=== PATIENT | male | born 1950 | race Caucasian/White ===

== ENCOUNTER 2020-06-04 15:01 | Emergency (ER) | payer BC, OTHER ==
--- OUTSIDE RECORDS SUMMARY | 2020-06-04 15:04 | XMS REPORT | Continuity of Care Document ---
:1950 Author Organization [facility] Care Team Providers Name Role Phone [facility] Unavailable Un available Problems Problem Status Onset Classification Date Comments Sourc e Date Reported PANCYTOPENIA Active Memoria l [address] [place] Medications No Data Provided for This Section Allergies, Adverse Reactions, Alerts No Known Medication Allergies Immunizations No Data Provided for This Section Results No Data Provided for This Section Pathology Reports No Data Provided for This Section Diagnostic Reports Report Value Date Source Bone Marrow Bio/Aspr Patient Name: AGNES ARAMBULA 02/28[birth year]2019 Damon Myers VR : 1950; Age: 69 years Male MR: [id number] PROCEDURE: 1. CT-guided bone marrow biopsy and aspiration o f the left iliac bone 2. Moderate sedation CLINICAL INFORMATION: Pancytopenia CONSENT: The procedure, risk s, benefits and alternatives were discussed with the patient and written informed consent was obtained. A 'time out' was performed per protocol prior to the procedure. TECHNIQUE: CT imaging performed at this location utilizes radiation dose optimization techniques which include one or more of the following: -Automated exposure control -Adjustment of the mA and/or kV according to pat ient size -Use of iterative reconstruction technique die stamping press operator: Dr. Sauceda Preoperative diagnosis: Pancytopenia Postoperative diagnosis: Same Radiation dose: 276.53 mGycm Estimated blood loss: Minimal Moderate sedation: I superv ised moderate sedation during this procedure. The patient was continuously monitored by a nurse using automated blood pressure, electrocardiogram, and pulse oximetry. The mod erate sedation record is per manently stored in the hospital information system. The personal supervised moderate sedation time was 4 minutes. Medications administered: Versed 2 mg IV and Fentanyl 50 mcg IV. The patient was placed in a prone position on the CT table. The left upper gluteal region was prepped and draped with sterile technique and the skin was anesthetized with 1% lidocaine. Under CT guidance, an 11-gau ge bone biopsy needle was advanced into the left iliac bone. Approximately 10 mL of bone marrow aspirate was obtained. Subsequently, the biopsy needle was repositioned and a core sample obtained. Both t he core and marrow aspirate were given to the master technician. The needles were removed and sterile dressing applied. Patient tolerated the proced ure well and transferred to the recovery room in stable condition. IMPRESSION: Successful bone marrow biopsy. SL: [id number] Consultation Notes No Data Provided for This Section Discharge Summaries No Data Provided for This Section History and Physicals No Data Provided for This Section Vital Signs No Data Provided for This Section Encounters No Data Provided for This Section Procedures No Data Provided for This Section Assessment and Plan No Data Provided for This Section Plan of Care No Data Provided for This Section Social History No Data Provided for This Section Family History No Data Provided for This Section Advance Directives No Data Provided for This Section Functional Status No Data Provided for This Section
--- OUTSIDE RECORDS SUMMARY | 2020-06-04 15:05 | XMS REPORT | Continuity of Care Document ---
:1950 Author Organization [facility] t Address [address] [place] [address] Care Team Providers Name Role Phone SANTA Primary Care Physician Unavailable EMMANUEL Attending Clinician Unavailable Padilla Garcia MD Attending Clinician Emmanuel DE LA CRUZ Attending Clinician Liseth BARRAZA, M Attending Clinician Unavailable Santa DE LA CRUZ Attending Clinician SANTA Attending Clinician Unavailable JESSICA Attending Clinician Unavailable Desmond BARRAZA Attending Clinician Unavailable Jessica BARLOW Attending Clinician Jose TORO Attending Clinician OMAR ROSAS Attending Clinician Unavailable Omar Rosas MD Attending Clinician Rosalia RN, E Attending Clinician Unavailable Darrell RN Attending Clinician Unavailable Payers Payer Name Policy Type Policy Number Effective Date Expiration Date S yamileth [place] POS [id number] 2020 00:00:00 MEDICARE PART A [id number] 2017 AND B 00:00:00 AETNA O [id number] 2016 2020 00:00:00 00:00:00 Problems Condition Condition Condition Status Onset Resolution Last Treating Co mments Source Name Details Category Date Date Treatment Clinician Date 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 Family History Family Member Diagnosis Comments Start Date Stop Date Source Natural brother Heart disease And erson Natural sister COPD MD Viral andujar Natural son HIV MD Wick Social History Social Habit Start Date Stop Date Quantity Comments Source Sex Assigned At MD Bullock on Tobacco use and 2020-03-04 2020-03-04 Never used MD Bullock on exposure 00:00:00 00:00:00 Alcohol intake 2020-03-04 2020-03-04 Ex-drinker MD Viral andujar 00:00:00 00:00:00 (finding) Smoking Status Start Date Stop Date Source Never smoker MD Wick Medications Ordered Filled Start Stop Current Ordering Indication Dosage Frequency Signature Comments Components Source Medication Medication Date Date Medication? Clinician (SIG) Name Name meloxicam 2019- 2020- No 15mg Take 15 mg M D (MOBIC) 15 8 08-04 by mouth Alex rso mg tablet 20:50: 00:00 daily. n 01 :00 vit 2019-0 Yes 1{capsu Take 1 MD C/E/zinc 8- le} capsule by Norris lin ox/leyla/lut 19:57: mouth n /zeax 46 twice (ICAPS daily. AREDS2 ORAL) fenofibrate 2020-0 Yes 145mg Take 145 M D nanocrystal 8-04 mg by Anderso lized 19:57: mouth n (TRICOR) 45 daily. 145 mg tablet cyclobenzap 2020-0 Yes 10mg Take 10 mg MD elsi 8-04 by mouth Anderso (FLEXERIL) 19:57: daily. n 10 mg 45 tablet acetaminoph 2020-0 Yes 500mg Take 500 M D en 8-04 mg by Anderso (TYLENOL) 19:55: mouth as n 500 mg 49 needed for tablet mild pain. meloxicam 2020-0 2020- Yes Painless 15mg Take 1 M D (Mobic) 15 04-13 11-03 hematuria tablet (15 Anderso mg tablet 00:00: 05:59 mg) by n 00 :00 mouth daily for 90 days. cyclobenzap 2019-0 2020- Yes Painless 10mg Take 1 MD rine 04-13 11- hematuria tablet (10 And erso (FLEXERIL) 00:00: 05:59 mg) by n 10 mg 00 :00 mouth tablet twice daily for 90 days. ergocalcife 2019-0 2020- No Painless [id number] Take 1 MD rol 04-13 08-17 hematuria capsule Kobe o (DRISDOL) 00:00: 04:59 (50,000 n 50,000 00 :00 Units) by units mouth capsule every 7 days for 12 days. carvedilol 2020-0 Yes 1{tbl} Take 1 MD (COREG) 6-10 tablet by Anderso 12.5 mg 00:00: mouth n tablet 00 twice daily. losartan 2020-0 Yes 1{tbl} Take 1 MD (COZAAR) 6-10 tablet by Kobe o 100 mg 00:00: mouth n tablet 00 daily. tamsulosin 2020-0 Yes 1{capsu Take 1 MD (FLOMAX) 6-03 le} capsule by Norris so 0.4 mg 24 00:00: mouth n hr capsule 00 daily. levothyroxi 2020-0 Yes 1{tbl} Take 1 MD ne 6-03 tablet by Anderso (SYNTHROID, 00:00: mouth n LEVOTHROID) 00 daily. 75 mcg tablet esomeprazol 2020-0 Yes 1{capsu Take 1 M D e (NexIUM) 6-03 le} capsule by And erso 40 MG 00:00: mouth n capsule 00 daily. VICTOZA 2020-0 2020- No Inject as MD 3-HENRIK 0.6 5-26 07-14 directed Norris so mg/0.1 mL 00:00: 00:00 daily. n (18 mg/3 00 :00 mL) pnij injection TRESIBA 2020-0 Yes 42U Inject 42 MD FLEXTOUCH 4-21 Units Anderso U-200 200 00:00: under the n unit/mL (3 00 skin mL) insulin daily. pen metFORMIN 2020- Yes 500mg Take 500 MD (GLUCOPHAGE 4-07 mg by Anderso ) 1000 mg 00:00: mouth n tablet 00 twice daily. Vital Signs Vital Name Observation Time Observation Value Comments Source HEIGHT 2020-04-13 14:04:11 172.9 cm WEIGHT 2020-04-13 14:04:11 119.6 kg HEIGHT 2020-04-13 14:04:11 172.9 cm WEIGHT 2020-04-13 14:04:11 119.6 kg HEIGHT 2020-03-23 13:03:45 172.9 cm WEIGHT 2020-03-23 13:03:45 117.2 kg HEIGHT 2020-03-23 13:03:45 172.9 cm WEIGHT 2020-03-23 13:03:45 117.2 kg Systolic blood pressure 2020-04-13 19:04:11 183 mm[Hg] MD Wick Diastolic blood pressure 2020-04-13 19:04:11 88 mm[Hg] MD Wick Heart rate 2020-04-13 19:04:11 84 /min MD Norris cornell Body temperature 2020-04-13 19:04:11 36.89 Nichol MD Ashwini nguyễn Respiratory rate 2020-04-13 19:04:11 16 /min MD Ashwini nguyễn Body height 2020-04-13 19:04:11 172.9 cm MD Norris cornell Body weight 2020-04-13 19:04:11 119.6 kg MD Pisano son BMI 2020-04-13 19:04:11 40.01 kg/m2 MD Norris cornell Oxygen saturation in 2020-04-13 19:04:11 93 /min MD Wick Arterial blood by Pulse oximetry Procedures Procedure Date / Time Performed Performing Clinician Sourc e XR FOOT 3+ VW BILATERAL 2020-03-23 20:49:18 Clifford Benitez MDon XR HAND 3 VIEWS MINIMUM 2020-03-23 20:32:51 Clifford Benitez MD BILATERAL ANTI-B2 GLYCOPROTEIN 2020-03-23 20:01:00 Clifford Benitez MD rson ANTINUCLEAR ANTIBODY HEP-2 2020-03-23 20:01:00 Clifford Benitez SUBSTRATE IGG C4 COMPLEMENT 2020-03-23 20:01:00 Clifford Benitez MD ANTI-CARDIOLIPIN ANTIBODIES 2020-03-23 20:01:00 Clifford Benitez MD C REACTIVE PROTEIN 2020-03-23 20:01:00 Clifford Benitez MD on CYCLIC CITRULLINE ANTIBODY 2020-03-23 20:01:00 Clifford Benitez IGG DNA ANTIBODY 2020-03-23 20:01:00 Clifford Benitez MD (DOUBLE-STRANDED) IGG SEDIMENTATION RATE 2020-03-23 20:01:00 Clifford Benitez MD on NON-AUTOMATED COMMUNICATIONS INTERN ANTIBODY IGG SERUM 2020-03-23 20:01:00 Clifford Benitez MD RHEUMATOID FACTOR 2020-03-23 20:01:00 Clifford Benitez MD QUANTITATIVE HEPATITIS B SURFACE ANTIBODY, 2020-03-23 20:01:00 Clifford Benitez MD SERUM HBV DNA QUANT 2020-03-23 20:01:00 Clifford Benitez MD HEPATITIS C GENOTYPE, SERUM 2020-03-23 20:01:00 Clifford Benitez MD URINALYSIS WITH MICROSCOPIC 2020-03-23 20:01:00 Clifford Benitez MD IF INDICATED PROTEIN / CREATININE RATIO 2020-03-23 20:01:00 Clifford Benitez URINE T-SPOT TUBERCULOSIS 2020-03-23 20:01:00 lCifford Benitez MD son CREATINE KINASE 2020-03-23 20:01:00 Clifford Benitez MD URIC ACID 2020-03-23 20:01:00 Clifford Benitez MD PTH INTACT 2020-03-23 20:01:00 Clifford Benitez MD HEMOGLOBIN A1C 2020-03-23 20:01:00 Clifford Benitez MD ANCA INFLAMMATORY BOWEL 2020-03-23 20:01:00 Clifford Benitez MD nderson DISEASE CRYOGLOBULIN 2020-03-23 20:01:00 Clifford Benitez MD VITAMIN D 25 HYDROXY LEVEL 2020-03-23 20:01:00 Clifford Benitez URINALYSIS MICROSCOPIC 2020-03-23 20:01:00 Clifford Benitez MD LUPUS PATH REVIEW 2020-03-23 20:01:00 Clifford Benitez MD HP MOLECULAR BLOOD COLLECTION 2020-03-04 21:06:00 Shara Lopez MD HEMATOPATHOLOGY BONE MARROW 2020-03-04 20:42:00 Marguerite Pratt MD INTERPRETATION [place] DIAGNOSTIC BONE MARROW 2020-03-04 20:00:00 Shara Lopez MD BIOPSIES & ASPIRATIONS HP FC FLOW CYTOMETRY BLOOD 2020-03-04 19:47:00 Shara Lopez COLLECTION HP MOLECULAR BLOOD COLLECTION 2020-03-04 19:47:00 Shara Lopez MD HP CYTOGENETICS BLOOD 2020-03-04 19:47:00 Shara Lopez MD And erson COLLECTION FLT3 ANALYSIS REPORT 2020-03-04 19:47:00 Shara Lopez HP TCR BETA GENE 2020-03-04 19:47:00 Shara Lopez MD son REARRANGEMENT ANALYSIS REPORT TCR GAMMA GENE 2020-03-04 19:47:00 Shara Lopez MD Alex rson REARRANGEMENT ANALYSIS REPORT MEG DE LA CRUZ IGH MUTATION ANALYSIS 2020-03-04 19:47:00 Shara Lopez MD INTERPRETATION AND REPORT MEG DE LA CRUZ LEUKEMIA MUTATION PANEL 2020-03-04 19:47:00 Shara Lopez MD V1 HP CG CHROMOSOME ANALYSIS 2020-03-04 19:47:00 Shara Lopez MD FINAL REPORT HP FC MDS FINAL REPORT 2020-03-04 19:47:00 Shara Lopez MDson BONE MARROW HISTORIC 2020-03-04 17:00:00 Jennifer, Cristi Wick RAPID PLASMA REAGIN (RPR) 2020-03-04 16:03:00 Shara Lopez MD COMPLETE BLOOD COUNT W/ 2020-03-04 16:03:00 Shara Lopez MD nderson DIFFERENTIAL PROTHROMBIN TIME 2020-03-04 16:03:00 Shara Lopez MD PARTIAL THROMBOPLASTIN TIME 2020-03-04 16:03:00 Shara Lopez MD RESEARCH PROTOCOL [id number] 2020-03-04 16:03:00 Shara Lopez MD Results CBC 2020-03-04 16:03:00 Shara Lopez MD MANUAL DIFFERENTIAL 2020-03-04 16:03:00 Shara Lopez MD TMP RPR PATH INTERP 2020-03-04 16:03:00 Shara Lopez MD PERIPHERAL SMEAR FOR BONE 2020-03-04 15:55:00 TomShara coppola MD MARROW HP FC FLOW CYTOMETRY BLOOD 2020-03-04 15:55:00 TomShara coppola COLLECTION TOTAL PROTEIN 2020-03-04 15:55:00 TomShara coppola MD ALBUMIN LEVEL 2020-03-04 15:55:00 TomShara coppola MD CALCIUM LEVEL TOTAL 2020-03-04 15:55:00 TomShara coppola MD son PHOSPHORUS LEVEL 2020-03-04 15:55:00 TomShara coppola MD GLUCOSE, RANDOM 2020-03-04 15:55:00 TomsShara MD BLOOD UREA NITROGEN 2020-03-04 15:55:00 TomsShara MD son SERUM CREATININE 2020-03-04 15:55:00 TomsShara MD URIC ACID 2020-03-04 15:55:00 TomShara coppola MD FRACTIONATED BILIRUBIN 2020-03-04 15:55:00 TomsShara MDson ALKALINE PHOSPHATASE 2020-03-04 15:55:00 TomsShara MD LACTATE DEHYDROGENASE 2020-03-04 15:55:00 TomsShara ALANINE AMINOTRANSFERASE 2020-03-04 15:55:00 TomShara coppola MD ELECTROLYTE PANEL 2020-03-04 15:55:00 TomShara coppola MD MAGNESIUM LEVEL 2020-03-04 15:55:00 TomShara coppola MD ASPARTATE AMINOTRANSFERASE 2020-03-04 15:55:00 TomShara coppola THYROID STIMULATING HORMONE 2020-03-04 15:55:00 TomShara coppola MD FIBRINOGEN ACTIVITY 2020-03-04 15:55:00 TomShara coppola MD VITAMIN B12 LEVEL 2020-03-04 15:55:00 TomShara coppola MD RETICULOCYTE COUNT AUTOMATED 2020-03-04 15:55:00 TomShara coppola MD FOLATE LEVEL 2020-03-04 15:55:00 TomShara coppola MD FERRITIN LVL 2020-03-04 15:55:00 TomShara coppola MD D DIMER 2020-03-04 15:55:00 TomShara coppola MD ERYTHROPOIETIN LEVEL 2020-03-04 15:55:00 TomsShara MD NT PRO BNP 2020-03-04 15:55:00 Shara Lopez MD HEPATITIS B CORE ANTIBODY 2020-03-04 15:55:00 Shara Lopez MD HEPATITIS C VIRUS ANTIBODY 2020-03-04 15:55:00 Shara Lopez HC HIV 1/2 AG AND AB 4TH GEN 2020-03-04 15:55:00 Shara Lopez MD SERUM CREATININE 2020-03-04 15:55:00 Shara Lopez MD .GLOMERULAR FILTRATION RATE 2020-03-04 15:55:00 Shara Lopez MD ABORH 2020-03-04 15:55:00 Shara Lopez MD ANTIBODY SCREEN 2020-03-04 15:55:00 Shara Lopez MD TMP INTERPRETATION ANTIBODY 2020-03-04 15:55:00 Shara Lopez MD SCREEN NEGATIVE CLOT EXPIRATION DATE 2020-03-04 15:55:00 Shara Lopez MD rson TMP HIV 1/2 AG&AB PATH INTERP 2020-03-04 15:55:00 Shara Lopez MD TMP HTLV INTERP 2020-03-04 15:55:00 Shara Lopez MD TMP HBSAG INTERP 2020-03-04 15:55:00 Shara Lopez MD TMP HBCAB INTERP 2020-03-04 15:55:00 Shara Lopez MD TMP HCVAB INTERP 2020-03-04 15:55:00 Shara Lopez MD HP FC PNH FINAL REPORT 2020-03-04 15:55:00 Shara Lopez MD CONFIRM ABORH TYPE 2020-03-04 15:54:00 Shara Lopez MD on HEMATOPATHOLOGY BONE MARROW 2020-03-04 09:27:43 Conversion, Jennifer Wick DIFFERENTIAL HC COVID19 AUTOMATED PCR 2020-03-02 13:37:00 Marguerite Pratt MD BONE MARROW REFERRAL 2020-02-23 00:00:00 System, Provider Not MD Wick In HEMATOPATHOLOGY BONE MARROW 2020-02-17 14:59:24 Conversion, Jennifer Wick DIFFERENTIAL Encounters Start End Encounter Admission Attending Care Care Encounter Source Date/Time Date/Time Type Type Clinicians Facility Department ID 2020-07-15 2020-07-15 Outpatient EL BUNI, MDA MDA [id number] 00:00:00 00:00:00 CLIFFORD andujar 2020-04-13 2020-04-13 Outpatient EL BUNI, MDA MDA [id number] MD 13:46:09 15:54:48 CLIFFORD andujar 2020-03-23 2020-03-23 Outpatient EL BUNI, MDA MDA [id number] 14:02:08 23:59:00 CLIFFORD andujar 2020-03-23 2020-03-23 Outpatient EL BUNI, MDA MDA [id number] MD 15:08:58 15:08:58 CLIFFORD andujar 2020-03-23 2020-03-23 Outpatient EL BUNI, MDA MDA [id number] MD 15:08:39 15:08:39 CLIFFORD andujar 2020-03-23 2020-03-23 Outpatient EL BUNI, MDA MDA [id number] 12:49:50 14:14:26 CLIFFORD andujar 2020-03-19 2020-03-19 Outpatient EL SANTA, MDA MDA [id number] 10:12:15 10:12:15 PRITHVIRAJ And erso n 2020-03-18 2020-03-18 Outpatient EL TOMS, SHARA MDA MDA [id number] 00:00:00 00:00:00 Kobe andujar 2020-03-04 2020-03-04 Outpatient EL TOMS, SHARA MDA MDA [id number] 14:47:57 23:59:00 Kobe o pratima 2020-03-04 2020-03-04 Outpatient EL TOMS, SHARA MDA MDA [id number] 14:45:00 14:46:00 Kobe o pratima 2020-03-04 2020-03-04 Outpatient EL TOMS, SHARA MDA MDA [id number] 10:51:00 14:44:00 Kobe o pratima 2020-03-04 2020-03-04 Outpatient EL SANTA, MDA MDA [id number] MD 09:14:00 14:42:35 PRITHVIRAJ And erso n 2020-03-04 2020-03-04 Outpatient EL RALPH, MDA MDA [id number] 10:20:16 10:50:00 Marshall andujar 2020-03-04 2020-03-04 Outpatient DIANA PRATT MDA MDA [id number] 09:40:14 09:40:14 PRITHVIRAJ And erso n 2020-03-04 2020-03-04 Outpatient DIANA PRATT MDA MDA [id number] 09:13:12 09:13:12 PRITHVIRAJ And erso n 2020-03-02 2020-03-02 Outpatient DIANA PRATT MDA MDA [id number] 08:30:09 08:37:57 PRITHVIRAJ And erso n 2019-02-28 2019-02-28 Outpatient MHBL MED [id number] MHBL 08:51:00 08:51:00 Results Test Description Test Time Test Comments Results Result Comments Source Hepatitis B Surface Antibody 2020-03-30 02:55:15 Test Item Value Reference Range Interpretation Comme nts Hep Bs Ab-[facility] Positive Patient is co nsidered to be immune to infection (test code = with HBV. ----- REFERENCE 33555-4) VALUE Unvaccinated: NegativeVaccina chilango: Positive Hep Bs Ab 101 mIU/mL -----REFERENCE Qn-[facility] (test VALUE--------- Unvaccinated: code = 5193-8) <5.0Vaccinate d: >=12.0 Test Performed by:[facility] [place] [address]Evh Director: Chinedu edwards M.D. Ph.D.; CLIA# [id number] AndersonHBV DNA [id number] 21:37:12 Test Item Value Reference Range Interpretation Comments HBV DNA [facility] Undetected Undetected IU/mL Result in log IU/mL is (test code = Undetected. 59871-8) ----ADDITIO NAL INFORMATION---- ----The quantif ication range of this a ssay is 10 to1,000,000,000 IU/mL (1.00 log to 9. 00 log IU/mL). Testing was performed using the shabana HBV test ([employer] with the shabana 6800 System. Test Pe rformed by:[address] [address]Lab Director: Garcia Guidry M.D. Ph. D.; CLIA# [id number] MD Pickardpatitis C [id number] 14:35:16 Test Item Value Reference Range Interpretation Comments Hep C Jovanna-[facility] Undetected Undetected Assay failed to detect (test code = HCV RNA[place] [address]505-0) intended for HC V RNA detection purpo ses. ----ADDITI ONAL INFORMATION---- -----This test was performed using the Can[employer] RealTime HCVGenotype II assay ([employer] [place], [place] ). Test Performed by:[address] [address]Lab Director: Garcia Guidry M.D. Ph. D.; CLIA# [id number] MD WickT-spot [id number] 19:18:13 Test Item Value Reference Range Interpretation Comments Tspot TB NIL Cont 1 (test code = 9396) Tspot TB Panel A 1 (test code = 9397) Tspot TB Panel B 1 (test code = 9398) Tspot TB Pos Cont SAT NOTE: TMTC INDICATES TOO (test code = 9399) MANY SPOT S TO COUNT. SAT INDICATES THE W ELL WAS SATURATED. Tspot TB (test code Negative Negative Performi Lab:Hindu = 7663) [address] [address] Tspot TB Interp See Note Results Inte rpretation: (test code = 9400) Results a re Negative when (Panel A - NIL) and (Panel B - NIL) 4 spo ts, including value s less than zero.Results ar e Positive when (Panel A - NIL) and (Panel B - NIL) 8 spots.Results a re Borderline when either (Panel A - NIL) and (Panel B - NIL) = 5, 6 , or 7. The test is invalid when either of the f ollowing conditions is m et:1.) The NIL Control has > 10 spots.2.) The M itogen (Positive Contr ol) has <20 spots and both (Panel A - NIL) and (Panel B - NIL) 4 spots. M. tub erculosis infection canno t be excluded when:1 . Any illness is cons istent with TB disease.2. L ikelihood of progression to disease (e.g. Due to Immunosuppressi on) is increased. Limi tations Diagnosing or e xcluding Tuberculosis di sease, and assessing the p robability of LTBI, requir es a combination of Epidemiological , historical, med ical and diagnostic find ings that should be taken in to account when in terpreting T-Spot.TB refer to the most recent CDC guidance(http:/ www.cdc.gov /nchstp/tb) for detailed recommendations about diagnosing TB i nfections (including dise ase) and selecting perso ns for testing. 1.) A false negative result can be caused by incor rect blood sample collecti on or improper handli ng of the specimen, affec ting lymphocyte func tion.2.) The performance of T-Spot.TB has n ot been adequately eval uated with specimens from individuals younger than ag e 17 years, in wom en, and in patients with Hemophilia.3.) A false positive result was obtained for T- Spot.TB when tested in subjects with M. xenopi, M. kansasii, and M . gordonae. While ESAT-8 an d CFP-10 antigens are ab sent from BCG strains of M. bovis and from most environmental Mycobacteria, i t is possible that a positive T-Spot.TB resul t may be due to infectio n with M. kansasii, M. sz ulgai, M. gordoae, or M. marinum. Alternative michelle ts would be required if the se infections are suspected.4.) A negative test result boone s not exclude the pos sibility of exposure to, or infection with M. tubercu losis. Patients with r ecent exposure to TB infected individuals exh ibiting a negative T-Spot .TB result should be consi dered for retesting withi n 6 weeks or if other rel evant clinical sysmpt oms indicate possib le infection.5.) A positive test result boone s not rule in active TB di sease; other tests leslie uld be performed to co nfirm the diagnosis of ac tive TB disease such as sputum smear and cultu re, PCR and chest radiograp hy.6.) T-Spot.TB test has not been evaluated in subjects who have receiv ed > 1 month Anti-TB t herapy.7.) Refrigerated an d frozen samples are not recommended for use with T-Spot.TB test. MD WickAnti B2 [id number] 01:35:17 Test Item Value Reference Range Interpretation Comments B2 GPI IgM (test <9.4 <15.0 (Negative) Test P erformed by:[facility] code = 07333-2) unit/mL [facility] Biomode - Biomolecular Determinationr [address] [employer] [place], [place] [address]Uia Direct or: Chinedu edwards M.D. Ph.D.; CLIA# 24 [id number] B2 GPI IgG (test <9.4 <15.0 (Negative) code = 35642-3) unit/mL MD WickAntinuclear Antibody (SUKHWINDER) HEp-2 Substrate, [id number] 20:38:46 Test Item Value Reference Range Interpretation Comments SUKHWINDER HEp-2 See Footnote <1:80 (Negative) RESULT: <1: 80 (Negative) Substrate (test -------[facility] code = 42620-0) ONAL INFORMATION---- -----Method: Immunofluoresce nce using HEp-2 cellular substrate. Test Performed by:[facility] Skyerar [address] [employer] [place], [place] [address]Hrl Direct or: Chinedu edwards M.D. Ph.D.; CLIA# 24 [id number] MD WickDNA Ab [id number] 17:44:38 Test Item Value Reference Range Interpretation Comments DS-DNA IgG-[facility] <12.3 <30.0 (Negative) IU/mL T est Performed by:[facility] (test code = [facility] - 53672-9) [facility] ior [address] [place], [place] [address]Zlp Direct or: Chinedu edwards M.D. Ph.D.; CLIA# 24 [id number] MD WickCyclic Citrullinated Peptide [id number] 16:28:09 Test Item Value Reference Range Interpretation Comments CCP Ab-[facility] (test <15.6 <20.0 (Negative) Units Test Performed by:[facility] code = 5183) [facility] ior [address] [place], [place] [address]Olv Direct or: Chinedu edwards M.D. Ph.D.; CLIA# 24 [id number] MD WickCytoplasmic Neutrophil [id number] 16:26:07 Test Item Value Reference Range Interpretation Comments RFC Negative Negative ANCA-[facility] (test code = 23859-2) RFP Negative Negative Negative for cA NCA and pANCA ANCA-[facility] patterns by imm unofluorescence. (test code = ----ADDITIONAL 18941-4) INFORMATION---- Thi s test was sean stout and its performance characteristics determined by [facility] in a man ner consistent with CLIArequir ements. This test has not been cl eared or approved bythe U.S. Food and Drug Administration. Test Performed by:[facility] ior [address] [place], [place] [address]Edt Direct or: Chinedu Guidry M.D. Ph. D.; CLIA# [id number] MD WickSm Ab IgG [id number] 14:25:22 Test Item Value Reference Range Interpretation Comments Sm Auto IgG <0.2 <1.0 (Negative) Units Test Performed by:[facility] (test [facility] - code = 62244-3) [facility] perior [address] [place], [place] [address]Eyd Direct or: Chinedu edwards M.D. Ph.D.; CLIA# 24 [id number] MD [id number] 14:25:21 Test Item Value Reference Range Interpretation Comments SS-A/Ro IgG-[facility] <0.2 <1.0 (Negative) Units (test code = 29099-9) SS-B/La IgG-[facility] 0.2 <1.0 (Negative) Units T est Performed by:[facility] (test code = [facility] - 77861-2) [place] [facility] i[address] [place], [place] [address]Jqn Direct or: Chinedu edwards M.D. Ph.D.; CLIA# 24 [id number] MD WickRNP Ab [id number] 14:25:20 Test Item Value Reference Range Interpretation Comments U1RNP Auto IgG <0.2 <1.0 (Negative) Units Michelle t Performed by:[facility] Ab-[facility] (test [facility] - code = 97537-1) [place] Matt perior [address] [place], [place] [address]Owo Direct or: Chinedu edwards M.D. Ph.D.; CLIA# 24 [id number] MD WickScl 70 Ab [id number] 14:25:19 Test Item Value Reference Range Interpretation Comments Scl-70 IgG-[facility] <0.2 <1.0 (Negative) Units Te st Performed by:[facility] (test code = [facility] - 91017-1) [facility] ior [address] [place], [place] [address]Mvj Direct or: Chinedu edwards M.D. Ph.D.; CLIA# 24 [id number] MD WickCardiolipin [id number] 03:45:18 Test Item Value Reference Range Interpretation Comments Cardio IgG (test <9.4 <15.0 (Negative) GPL Te st Performed by:[facility] code = 3181-5) [facility] ior [address] [place], [place] [address]Jch Direct or: Chinedu edwards M.D. Ph.D.; CLIA# 24 [id number] Cardio IgM (test <9.4 <15.0 (Negative) MPL code = 3182-3) MD [id number] 00:45:26 Test Item Value Reference Range Interpretation Comments C4-[facility] (test code = 13 mg/dL 14-40 L Test P erformed 4498-2) by:[facility] Super i[address] [place], [place] [address]Tlv Dir michael: Chinedu edwards M.D. Ph.D.; CLI A# [id number] Lab Interpretation (test Abnormal code = 29958-2) MD [id number] 00:45:19 Test Item Value Reference Range Interpretation Comments C3-[facility] (test code 120 mg/dL 75-175 Test Per formed by:[facility] = 4485-9) [facility] ior [address] [employer] [place], [place] [address]Ggr Director: Garcia Guidry M.D. Ph. D.; CLIA# [id number] MD [id number] 16:39:14 Test Item Value Reference Range Interpretation Comments Cryoglobulin-[facility] Negative Negative This test is negative at 24 (test code = hours. All [facility] les are held 27092-1) andreviewed aga in at 7 days. If delaye d precipitation o ccursafter 7 days, Immunofix ation will be performed an d anadditional re port will follow. Cryofibrinogen-May Negative Negative Test Per formed by:[place] [facility] (test code = [facility] - 45357-0) [place] [address] [employer] [place], [place] [address]Yzh Director: Garcia Guidry M.D. Ph.D.; CLI A# [id number] MD WickLupus Anticoagulant Path [id number] 18:36:31Lupus Anticoagulant Path InterpThe test for lupus anticoagulant is negative,suggestive of absence oflupus anticoagulant. However,due to the heterogeneous nature of the lupus anticoagulant,the presenceof lupus anticoagulant can not be completelyruled out. If clinical suspicion for lupus anticoagulantis strong, repeat screening test for anticoagulant atdifferent time, anticardiolipin antibody testing andadditional lupus panel studies are recommended. Comment: MD Boo DAVEY [id number] by: MD Boo DAVEY [id number] Date/Time: 03.24.2020 13:36 PM CDT Transcribed Date/Time: 03.24.2020 13:36 PM CDTElectronically Signed By: MD Boo DAVEY [id number] on 03.24.2020 13:36 PM BANNER ZuckpqnjOaeph3189-05-91 18:36:30 Test Item Value Reference Range Interpretation Comments N LAC Ratio (test code = 6449) 0.93 <=1.20 ratio MD WickVitamin D [id number] 16:02:19 Test Item Value Reference Range Interpretation Comments Vitamin D 25 OH (test 20 ng/mL 30-100 L Refere nce Range: code = 8018) Deficiency: <10 ng/mLInsufficie ncy: 10-29 ng/mLSufficienc y: 30-100 ng/mLPotential toxicity: >10 0 ng/mL Lab Interpretation (test Abnormal code = 51674-9) MD WickSed [id number] 21:42:59 Test Item Value Reference Range Interpretation Comments Sed Rate (test code = 4537-7) 17 0- 9 mm/hr H Lab Interpretation (test code = Abnormal 83039-8) MD [id number] 21:28:46 Test Item Value Reference Range Interpretation Comments CRP (test code = 5.53 mg/L Reference r [facility] for HS CRP 5235) assay are as fo llows: Reference range s when used to assess cardi ac risk: <1.00 mg/L Low cardiovascular risk 1.00-3.00 mg/L Average cardiovascular risk >3.00 mg/L High cardi ovascular risk.Reference ranges when used to assess inflammatory responses: Les s than or equal to 10.00 mg/L. MD WickProtein/Creatinine Ratio [id number] 21:26:27 Test Item Value Reference Range Interpretation Comments UTP Ran (test code = 7 mg/dL Normal range not 7922) available for collections les s than 24 hours in [facility]. U Creatinine (test 74.4 mg/dL 40-278 The refer ence range code = 7725) listed is for f irst morning urine collection. U Prot/Creat (test 0.09 Normal ra nge not code = 7805) available for collections les s than 24 hoursin dura tion. MD WickX-ray Foot 3+ Views [id number] 21:19:401. No acute fracture.2. No radiographic evidence of rheumatoid arthritis in feet.3. Unremarkable ankles.Interface, Radiology Results In 03/23/2020 4:21 PM CDTFULL RESULT:Examination: XR BilateralFeet, Minimum 3 Views, 03/23/2020 3:49 PM.Clinical History: Leukemia.Indication: Rheumatoid arthritis.Comparison: None.Technique: 3 views of each foot, 03/23/2020.Findings:Mild diffuse soft tissue swelling and mild generalized osteoporosis are noted bilaterally.No other bone, joint or soft tissue abnormality is seen in the feet. No bony erosions are present.The bilateral ankles are unremarkable.IMPRESSION:1. No acute fracture.2. No radiographic evidence of rheumatoid arthritis in feet.3. Unremarkable ankles.MD WickHemoglobin [id number] 21:19:16 Test Item Value Reference Range Interpretation Comments A1C (test code = 4632) 6.3 % 4.3-5.6 H HbA1c values >=6.5% are diagnostic of diabetes mellitus.Diagno sis should be confi rmed by repeat testing.Therape utic Action suggeste d: >8.0% HbA1c; Go al oftherapy: <7.0 % HbA1c Lab Interpretation (test Abnormal code = 18057-6) MD WickRheumatoid Factor [id number] 21:18:06 Test Item Value Reference Range Interpretation Comments Rheumatoid Factor (test code = 9378) 10 <=14 IU/mL MD WickCreatine [id number] 21:17:56 Test Item Value Reference Range Interpretation Comments CK (test code = 5206) 81 U/L 20-200 MD WickX-ray Hand 3 Views Minimum [id number] 21:16:151. No acute fracture.2. 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 No radiographic evidence of rheumatoid arthritis in hands and wrists.Interface, Radiology Results In 03/23/2020 4:18 PM CDTFULL RESULT:Examination: XR Bilateral Hands, Minimum 3 Views, 03/23/2020 3:32 PM.Clinical History: Leukemia.Indication: Rheumatoid arthritis.Comparison: None.Technique: 3 views of each hand, 03/23/2020.Findings:Early osteoarthritis is seen in the DIP joints with some joint space narrowing, eburnation and tiny marginal osteophytes.Soft tissue swelling is seen about the wrists and bilateral MCP joints. No bony erosions are present.Chondrocalcinosis is noted in both wrists. Mild osteoarthritis is seen at the right third MCP joint. Osteoarthritis is also present in the articulations between the scaphoid trapezium and trapezoid bones in the right wrist.No other bone, joint or soft tissue abnormality is seen.IMPRESSION:1. No acute fracture.2. 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 No radiographic evidence of rheumatoid arthritis in hands and wrists.MD WickUrinalysis with Microscopic 2020-03-23 20:50:27 Test Item Value Reference Range Interpretation Comments UA WBC (test code = 1 0- 2 /HPF 7904) UA RBC (test code = 12 0- 2 /HPF H 7891) UA Mucous (test code = NOT SEEN TRACE /HPF 7887) UA Bacteria (test code NOT SEEN NOT SEEN /HPF = 7870) UA Squam Epi (test NOT SEEN OCC /HPF code = 7896) SRAVANTHI (test code = SRAVANTHI) Some reporting parameters within the Urinalysis test have changed due to the implementation of new instrumentation in the [facility], allowing greater sensitivity of measurement. Urinalysis results reported by the [facility] using existing instrumentation, as well as Urinalysis testing performed manually or by backup methodology at the [facility] will remain relatively unchanged. New reporting parameters and units will now be reported for all campuses. Lab Interpretation Abnormal (test code = 58395-5) MD WickUrinalysis w/Microscopic if [id number] 20:45:03 Test Item Value Reference Range Interpretation Comments UA Color (test code = 7877) Yellow Yellow UA Appear (test code = 7868) Clear Clear UA Glucose (test code = 7881) NEG NEG mg/dL UA Bili (test code = 7871) NEG NEG UA Ketones (test code = 7884) NEG NEG mg/dL UA Spec Grav (test code = 7894) 1.013 1.002-1.035 UA Blood (test code = 7872) Small NEG A UA pH (test code = 7909) 7.0 4.5-8.0 UA Protein (test code = 7890) NEG NEG mg/dL UA Urobilinogen (test code = 7903) POS NEG A UA Nitrite (test code = 7888) NEG NEG UA Leuk Est (test code = 7886) NEG NEG Lab Interpretation (test code = Abnormal 97055-0) MD WickPTH [id number] 20:44:05 Test Item Value Reference Range Interpretation Comments PTH Intact (test 16.9 pg/mL 15-65 Testing Per formed at code = 6769) ACB Lab Ambulat ory Care [facility], [address], [address], [place], [place] [address] MD WickUric [id number] 20:43:25 Test Item Value Reference Range Interpretation Comments Uric Acid (test 5.1 mg/dL 3.4-7 Testing Perf ormed at B code = 7955) Lab Head Of [employer] [facility], [facility], [address], [place] [address] MD Geronimo HCV Ab Path [id number] 11:56:19 Test Item Value Reference Range Interpretation Comments HCV Ab Path Patient shows Interp (test evidence of code = 8923) Hepatitis C ____PINO STEVENSON MD - virus antibody. 16222Urcrshp d by: PINO This may be due SABAS BARRAZA MD - to prior 38435Uawvnory D ate/Time: exposure to the 03.06.2020 6 :56 AM CDT Hepatitis C Transcribed Rehan e/Time: virus. 03.06.2020 6:56 AM CDTElectronical ly Signed By: PINO STEVENSON MD - [id number] on 03.06 6:56 AM Risa Geronimo HBcAb Path [id number] 11:56:18HBcAb Path InterpHepatitis B core antibody test is reactive. A false positive test cannot be ruled ou t.Hepatitis B virus DNA Quantitative by PCR should be run to confirm the presence/absence of HBV.Hepatitis B surface antibody testing is also recommended if not already performed.These results may not be valid if the patient has recently received IVIG. Comment: MD Boo ALMARAZ [id number] by: MD Boo ALMARAZ [id number] Date/Time: 03.06.2020 6:56 AM CDT Transcribed Date/Time: 03.06.2020 6:56 AM CDTElectronically Signed By: MD Boo ALMARAZ [id number] on 03.06.2020 6:56 AM [facility] C Virus Ab 2020-03-06 04:32:41 Test Item Value Reference Range Interpretation Comments HCVAb. (test code = 5762) Reactive Non Reactive A Pe rformed at:[facility] [place] [address] Lab Interpretation (test Abnormal code = 41556-2) MD Pickardkosair children's hospitalsima B Total Ig Core Ab (SCREENING) (anti-HBc total Ig; HBcAb total Ig)2020-03-06 04:32:40 Test Item Value Reference Range Interpretation Comments HBcAb. (test code = 5742) Reactive Non Reactive A Pe rformed at:[facility] [place] [address] Lab Interpretation (test Abnormal code = 80990-5) MS DelanoFlow Cytometry Specimen Collection -Bone [id number] 17:51:33 Test Item Value Reference Range Interpretation Comments Flow Cytometry Yes (Received) (test code = 8319) SRAVANTHI (test code = SRAVANTHI) [id number] [facility] 15mlsPremedication type:->NoneAspiration laterality:->Unilatera lBiopsy laterality:->Unilatera lProcedure type:->ClotProcedure type:->BiopsyProcedure type:->AspirateSelect the Bone Marrow Stains:->IronSelect the Bone Marrow Stains:->Reticulin/Tri chrome MD [facility] Specimen Collection -[id number] 15:20:28 Test Item Value Reference Range Interpretation Comments Molecular Diagnostics (Received) (test Yes code = 8400) MD Geronimo RPR Path Diziegvondyjju5821-56-79 11:51:19 Test Item Value Reference Interpretation Comments Range TMP RPR Path The Rapid Interpretation Plasma Reagin (test code = (RPR) assay is PION OBREGON 840471) negative. If a MD MADI - syphilis 56838Rdcjbfbj b y: infection is PINO BARRAZA MD - suspected, 01858Ujcgzsik please perform Date/Time: a Treponemal 6:51 AM CDT specific Transcribed Rehan e/Time: screening 03.05.2020 6:51 AM assay. CDTElectronical ly Signed By: NILTON BARRAZA MD - [id number] on 03.05.2020 6:51 AM Risa Geronimo HIV 1/2 Ag&Ab Path [id number] 11:47:34 Test Item Value Reference Range Interpretation Comments HIV 1/2 Ag&Ab Negative for Interp (test HIV-1 antigen and code = 9394) HIV-1/HIV-2 ____PINO STEVENSON MD - antibodies. [place] 02376Zbryswfr by: PINO BARRAZA MD - evidence of HIV 40556Lpqtonq d Date/Time: infection. If 03.05.2020 6:4 7 AM CDT acute HIV Transcribed Rehan e/Time: infection is 03.05.2020 6:47 AM suspected, CDTElectronical ly Signed consider testing By: PINO BARRAZA MD - for HIV-1 RNA. 21092 on 6:47 AM Risa Geronimo HBsAg Path [id number] 11:47:33 Test Item Value Reference Range Interpretation Comments HBsAg Path There is NO Interp (test serologic code = 8922) evidence of ____PINO STEVENSON MD - detectable 97625Jpivorjv b y: PINO Hepatitis B virus Gerber VANG D - surface antigen. 18778Tfwzvv ed Date/Time: 03.05.2020 6:47 AM CDT Transcribed Rehan e/Time: 03.05.2020 6:47 AM CDTElectronical ly Signed By: MD Boo ROSS [id number] on 03.05 6:47 AM C MD SwansonP HTLV Path [id number] 11:47:32 Test Item Value Reference Range Interpretation Comments TMP HTLV I/II Patient plasma Interp (test shows no code = 7549) evidence of ____PINO STEVENSON MD - HTLV-I/II 57187Qypovdbk b y: PION antibodies. SABAS BARRAZA MD - Please retest in [address] [place] [address] ed Date/Time: 6 months if an 03.05.2020 6: 47 AM CDT exposure is Transcribed Rehan e/Time: suspected. 03.05.2020 6:47 AM CDTElectronical ly Signed By: MD Boo ROSS [id number] on 03.05 6:47 AM Risa Hearn Plasma Reagin (RPR) [Syphilis SCREENING]2020-03-05 05:02:57 Test Item Value Reference Range Interpretation Comments RPR Screening (test code = Non Reactive Non Reactive 003568) MD Pickardpatisima B Surface [id number] 03:43:20 Test Item Value Reference Range Interpretation Comments HBsAg. (test code Non Reactive Non Reactive Performed at: = 5747) [facility] [address] [place] [address] MD WickHTLV I/II [id number] 03:43:18 Test Item Value Reference Range Interpretation Comments HTLV I/II Ab. Non Reactive Non Reactive Performed at:M D (test code = 5842) [facility] [address] [address] MD WikcHIV-1/2 Antigen and Antibodies, Fourth Ribvibuyvj6324-67-31 00:23:59 Test Item Value Reference Range Interpretation Comments HIV 1/2 Ag & Ab, Non Reactive Non Reactive Performed a t: 4th Gen (test code [facility] = 9280) [address] [address] MD WickFolate [id number] 22:55:11 Test Item Value Reference Range Interpretation Comments Folate Lvl (test 19.6 ng/mL 4.8-24.2 Hemolyzed s pecimens with code = 5625) Hemolysis Index >30.0 (30 mg/dL or vi sible hemolysis) may cause interference an d give falsely high re sults. MD WickCytogenetics Specimen Collection -Bone [id number] 22:39:01 Test Item Value Reference Range Interpretation Comments Cytogenetics (Received) Yes (test code = 8304) SRAVANTHI (test code = SRAVANTHI) [id number] [place] 15mlsPremedication type:->NoneAspiratio n laterality:->Unilate ralBiopsy laterality:->Unilate ralProcedure type:->ClotProcedure type:->BiopsyProcedu re type:->AspirateSelec t the Bone Marrow Stains:->IronSelect the Bone Marrow Stains:->Reticulin/T richrome MD WickVitamin B12 [id number] 22:28:51 Test Item Value Reference Range Interpretation Comments Vitamin B12 Lvl (test code = 8017) 771 pg/mL 211-946 MD WickVbpzvpbvLbbgbjmc1426-78-10 20:54:59 Test Item Value Reference Range Interpretation Comments Ferritin Lvl (test code = 5608) 139 ng/mL 30-400 MD WickResearch Protocol [id number] 20:44:33 Test Item Value Reference Range Interpretation Comments Research Prot (test 600699 code = 7189) SRAVANTHI (test code = SRAVANTHI) [id number] [place] 15mls MD WickTMP Interpretation Antibody Screen [id number] 20:34:57 Test Item Value Reference Range Interpretation Comments TMP Auto Neg At the present ABSC Interp time, patient (test code = plasma shows no ____PINO BARRAZA MD - 7535) evidence of RBC 43597Mjmbpxr d by: PINO ricoantimichelle. MD Boo VANG 74360Ckspxkyq D ate/Time: 03.04.2020 15:3 4 PM CDT Transcribed Da te/Time: 03.04.2020 15:3 4 PM CDTElectronical ly Signed By: MD Boo ROSS 14640 on 03.04 15:34 PM MD Maldonado marrow aspiration w/ [id number] 20:00:00Maya Garcia NP 03/04/2020 4:04 PM Procedure: Bone marrow aspiration/biopsyDate/Time: 03/04/2020 2:59 PM Provider Information:Performed by: Maya Garcia NPAuthorized by: Shara Lopez APN Strap Folding Machine Operator present: yesAssistant: Dione Schmitt interpreter for the deaf used?: interpreter for the deaf not needed Patient Diagnosis:Pre-procedure diagnosis: MDSPost-procedure diagnosis: unchanged Indication:Indication: evaluation of disease status Anesthesia:Anesthesia: local infiltrationPatient anesthetized by: advanced practice providerLocal anesthetic: lidocaine 1% without epinephrineAnesthetic total (ml): 20 Sedation:Patient sedated?: patient not sedated Aspirate Site(s):Laterality: rightSite location: posterior iliac cre stInstrument(s) used: Jamshidi needleInstruments placed by: advanced practice provider Biopsy Site(s):Laterality: rightSite location: posterior iliac crestInstrument(s) used: Jamshidi needleInstrumentsplaced by: advanced practice provider Dressing:Dressing: compression bandage Post-Procedure Patient A ssessment:Patient tolerance: wellEstimated blood loss: minimalComplications/Observations: no complications Discharge/Disposition:Discharge instructions: verbal and patient verbalized understandingPatient discharged to: discharge to homeDisposition mode: ambulatory Sample Disposition:Testing performed:flow cytometry, molecular and cytogeneticsStains performed: iron, reticulum and trichomeResearch samples(s): yesProtocol #: [id number] volume obtained (mL) - right: 23Visual assessment for specimen adequacy - right: particlesVisual assessment for specimen adequacy - right: 1.4Specimen integrity- right: fragmented Comments:Pocedure performed by Physician Strap Folding Machine Operator Fellow Matthew Salinas PA-C, under the supervision of Maya Garcia NP.MD WickConfirm ABORh 2020-03-04 19:20:00 Test Item Value Reference Range Interpretation Comments ABORh Confirm. (test code = 882-1) A POS MD WickKyhjbavyZYRGd3829-04-67 19:17:32 Test Item Value Reference Range Interpretation Comments ABORh. (test code = 882-1) A POS MD WickClot Expiration [id number] 19:17:30 Test Item Value Reference Range Interpretation Comments T & S Expiration (test code = 03/07/2020 5318) MD WickAntibody [id number] 19:16:46 Test Item Value Reference Range Interpretation Comments ABSC. (test code = 890-4) Negative ABSC MD WickNypovrykYVY9860-18-01 18:32:54 Test Item Value Reference Range Interpretation Comments Erythropo Lvl (test code = 5523) 19.7 2.6- 18.5 mIU/mL H Lab Interpretation (test code = Abnormal 79999-9) MD [id number] 17:40:04 Test Item Value Reference Range Interpretation Comments TSH (test code = 7578) 0.90 0.27- 4.20 mcunit/mL MD WickFractionated Ozpopuhhs6075-08-47 17:40:01 Test Item Value Reference Range Interpretation Comments Bili Total (test 1.0 mg/dL <=1.2 Indocyanine Green (ICG) code = 5096) may cause false ly elevated biliru bin results. Total and direct bilirubin must not be measured from s amples containing indo cyanine green. False el evation of total bilirubin can be seen in patient s with IgG concentrations above 28 g/L. Bili Direct (test 0.2 mg/dL <=0.3 Indocyanin e Green (ICG) code = 5094) may cause false ly elevated biliru bin results. Total and direct bilirubin must not be measured from s amples containing indo cyanine green. Bili Indirect (test 0.8 mg/dL 0-0.9 code = 5095) MD WickGlucose, [id number] 17:40:00 Test Item Value Reference Range Interpretation Comments Glucose Random (test 89 mg/dL 70-199 Effecti ve 04/05/16, the code = 9360) glucose referen ce intervals have been updated based o n [place] [employer] bib delines (Standards of M edical Care in Diabete s 2016. Diabetes Care 2 016; 39: S13-S22).Fastin g blood glucose:Normal: 70 99 mg/dLImpaire d fasting glucose (increa sed risk for diabetes or pre-diabetes): 100 125 mg/dLDiabet es mellitus: >/=1 26 mg/dL Random blood glucose:Normal: 70 199 mg/dLNote: Random glucose >100 mg /dL is associated with increased risk for diabetes MD WickTotal [id number] 17:39:58 Test Item Value Reference Range Interpretation Comments Total Protein (test code = 7649) 7.9 g/dL 6.4-8.3 MD WickCalcium [id number] 17:39:57 Test Item Value Reference Range Interpretation Comments Calcium Lvl (test code = 5258) 10.5 mg/dL 8.4-10.2 H Lab Interpretation (test code = Abnormal 80023-4) MD WickAlanine Tgehdfttlrsadyft6048-29-83 17:39:56 Test Item Value Reference Range Interpretation Comments ALT (test code = 4705) 19 U/L <=41 MD WickQwtqvqihWDC3181-93-02 17:39:55 Test Item Value Reference Range Interpretation Comments BUN (test code = 5055) 19 mg/dL 6-23 MD WickGlomerular Filtration [id number] 17:39:53 Test Item Value Reference Range Interpretation Comments eGFR-AA (test 108 >=60 mL/min/1.73 sq. Normal eGFR: >= 60 code = 8062) m mL/min/1.73 m2N ote: The eGFR is calcula chilango using the CKD-EPI equ ation. The eGFR declines w ith age. eGFR <60 mL/min /1.73 m2 is considered as " decreased". This equation s juan juld only be used for pat ients 18 and older. Acco rding to the National dney Foundation's dney Disease Outcome Quality Initiative (KDO QI) classification and 2012 Kidney Disease Improving Global Outcomes (KDIGO) Clinical Practi ce Guideline, the stage of CKD should be c ategorized based on estima chilango GFR. Stage Descripti on GFR mL/min/1.73 m21 Normal or high GFR >=902 Mildly de creased GFR 60-893a Mildly to moder ately decreased GFR 45-593b Moderately to s everely decreased GFR 30-444 Severely decrea sed GFR 15-295 Kidney failure <15 eGFR-LIVIER (test 93 >=60 mL/min/1.73 sq. Jane l eGFR: >= 60 code = 8063) m mL/min/1.73 m2N ote: The eGFR is calcula chilango using the CKD-EPI equ ation. The eGFR declines w ith age. eGFR <60 mL/min /1.73 m2 is considered as " decreased". This equation s hould only be used for pat ients 18 and older. Acco rding to the [facility] dney Foundation's dney Disease Outcome Quality Initiative (KDO QI) classification and 2012 Kidney Disease Improving Global Outcomes (KDIGO) Clinical Practi ce Guideline, the stage of CKD should be c ategorized based on estima chilango GFR. Stage Descripti on GFR mL/min/1.73 m21 Normal or high GFR >=902 Mildly de creased GFR 60-893a Mildly to moder ately decreased GFR 45-593b Moderately to s everely decreased GFR 30-444 Severely decrea sed GFR 15-295 Kidney failure <15 MD WickPhosphorus [id number] 17:39:52 Test Item Value Reference Range Interpretation Comments Phosphorus (test code = 6817) 3.4 mg/dL 2.5-4.5 MD WickMagnesium [id number] 17:39:51 Test Item Value Reference Range Interpretation Comments Magnesium (test code = 6359) 1.6 mg/dL 1.6-2.6 MD WickElectrolyte [id number] 17:39:50 Test Item Value Reference Range Interpretation Comments Sodium Lvl (test code = 7355) 139 136- 145 mEq/L Potassium Lvl (test code = 6854) 5.1 3.5- 5.1 mEq/L Chloride (test code = 5279) 103 98- 107 mEq/L CO2 (test code = 5227) 28 22- 29 mEq/L Anion Gap (test code = 9325) 8 4- 14 mEq/L MD WickTyigofsyCDS1560-76-09 17:39:49 Test Item Value Reference Range Interpretation Comments LDH (test code = 6111) 299 U/L 135-225 H Speci men is hemolyzed. Resu lts may be falsely elevated. Repea t test if needed.Resul ts greater than 16 51 U/L may not be reli able due to matrix e ffect with extended dilution as it exceeds the engrosser s recommended l imit. Caution should be exercised when interpreting matt ch values and done in conjunction wit h clinical contex t. Lab Interpretation (test Abnormal code = 88819-8) MD WickAlkaline Rtqrzpglsvm1762-08-53 17:39:48 Test Item Value Reference Range Interpretation Comments Alk Phos (test code = 4768) 67 U/L 40-129 MD WickAlbumin Knygi1514-04-45 17:39:47 Test Item Value Reference Range Interpretation Comments Albumin Lvl (test code = 4763) 4.2 3.5- 5.2 gm/dL MD WickAspartate [id number] 17:39:46 Test Item Value Reference Range Interpretation Comments AST (test code = 4731) 41 U/L <=40 H Speci men is hemolyzed. Resu lts may be falsely elevated. Repea t test if needed. Lab Interpretation (test Abnormal code = 66745-9) MD Wick.Serum Woscctbucz5030-27-90 17:39:44 Test Item Value Reference Range Interpretation Comments Creatinine (test code = 5399) 0.77 mg/dL 0.67-1.17 MD WickLnophfhhQlwhzkwlpa9837-59-96 17:25:45 Test Item Value Reference Range Interpretation Comments Fibrinogen (test code = 5610) 334 mg/dL 214-503 MD WickD [id number] 17:25:44 Test Item Value Reference Range Interpretation Comments D-Dimer (test 0.31 0.10- 0.50 mcg/ml The cut o ff value for code = 5419) FEU exclusion of ve nous thromboembolism is <0.50 mcg/mL FEUs (fi brinogen equivalent unit s). MD WickEcwuwkenFvgwqxxhunpd7835-22-47 17:25:01 Test Item Value Reference Range Interpretation Comments Neutrophil % (test code = 60.7 % 42-66 92533-8) Lymphocyte % (test code = 24.9 % 24-44 737-7) Monocyte % (test code = 10.5 % 2-7 H 744-3) Eosinophil % (test code = 2.5 % 1-4 713-8) Basophil % (test code = 0.7 % 0-1 707-0) IGRE % (test code = 0.7 % 0-0.4 H IGRE % c ount 07226-8) includes Metamyelocytes, Myelocytes, and Promyelocytes. Neutrophil Abs (test code 1.68 K/uL 1.7-7.3 L = 753-4) Lymphocyte Abs (test code 0.69 K/uL 1-4.8 L = 732-8) Monocyte Abs (test code = 0.29 K/uL 0.08-0.7 743-5) Eosinophil Abs (test code 0.07 K/uL 0.04-0.4 = 712-0) Basophil Abs (test code = 0.02 K/uL 0-0.1 705-4) IG Abs (test code = 0.02 K/uL 0-0.04 73506-1) Lab Interpretation (test Abnormal code = 10472-7) MD Wick.[id number] 17:24:59 Test Item Value Reference Range Interpretation Comments WBC (test code = 2.8 K/uL 4-11 L 6690-2) RBC (test code = 789-8) 5.10 4.50- 6.00 M/uL Hgb (test code = 718-7) 15.6 14.0- 18.0 gm/dL Hct (test code = 47.2 % 40-54 4544-3) MPV (test code = 787-2) 10.9 fL 4-10.4 H MCH (test code = 785-6) 30.6 pg 27-31 MCHC (test code = 33.1 31.0- 36.0 gm/dL 786-4) RDW-SD (test code = 50.3 fL 35.1-46.3 H 66674-9) RDW-CV (test code = 14.6 % 12-15.5 788-0) Platelet count (test 74 K/uL 140-440 L code = 777-3) INRBC (test code = 0.0 % <=0.0 The INRBC (instrument 5974) NRBC) value ref lects the enumeration of nucleated red b lood cells contained in a 200uL sampleof whole blood analyzed by the instrument. Thi s value maydiffer from the NRBC value reported in a m anual differential,wh ich is based on a 100 cell differential. Lab Interpretation Abnormal (test code = 05343-7) MD WickNT-Pro BNP (In-House)2020-03-04 17:14:13 Test Item Value Reference Range Interpretation Comments NT ProBNP (test code = 9385) 28 pg/mL <=125 MD WickProthrombin [id number] 17:00:47 Test Item Value Reference Range Interpretation Comments PT (test code = 6746) 15.7 12.0- 14.3 H No Minna t Present, second(s) Repeated and Verified INR (test code = 5973) 1.28 0.90-1.10 H No Cl ot Present, Repeated and Verified Lab Interpretation (test Abnormal code = 47885-9) MD WickRetic [id number] 17:00:19 Test Item Value Reference Range Interpretation Comments Retic Cnt Auto (test code = 81237-6) 1.2 % 0.5-1.5 RETHE (test code = 6973) 37.4 pg 23.2-37.5 IRF (test code = 67220-3) 2.7 % 2.3-18 MD WickPartial Thromboplastin [id number] 16:37:41 Test Item Value Reference Range Interpretation Comments PTT (test code = 6773) 30.2 24.2- 36.0 second(s) MD WickPeripheral Smear for Bone [id number] 16:33:39 Test Item Value Reference Range Interpretation Comments Peripheral Smear (test code = 4273) PSMEAR MD WickCOVID-19 (SARS-CoV-2) PCR-Asymptomatic [id number] 06:51:07 Test Item Value Reference Range Interpretation Comments COVID19 (SARS Not Detected Not Detected This test is a CoV-2) Result qualitative (test code = reverse-transcr iptase 19662) polymerase nupur n reaction (RT-PC R) developed for t he [employer] syst em and intended for th e detection of SA RS CoV-2 RNA in human nasopharyngeal specimens from patients who meet COVID- 19 clinical and/or epidemiological criteria. This assay has been approv ed by the FDA for use only under Emergency Use Authorization ( EUA) in laboratories th at have been CLIA-certi fied to perform moderate-comple xity and high-complexity tests. The performance characteristics of this assay were veri fied by the [facility] at [facility]. Results must be interpreted wit hin the context of all relevant clinical and la boratory findings and sh ould not form the sole b asis for a diagnosis or treatment decision.Novelty Maker al controls are in cluded to assess for p ossible amplification inhibitors. If inhibition is d etected, testing is repe ated and if inhibition i s confirmed the s pecimen is resulted as "Invalid". "Inconclusive" results are due to part ial amplification o f SARS-CoV-2 targ ets. When this occur s, results are con firmed by repeat testi ng before issuing an "Inconclusive" result. When an "Invali d" or "Inconclusive" results occur, it is recommended to wait a minimum of 3 da ys before submitti ng a new specimen for te sting if clinically keily cated. COVID19 SARS DEVELOPER [employer] Swab Source (test code = 71622) COVID19 SARS New Patient Indication (test code = 27832) MD Wick
[2020-06-04] MEDS ORDERED: ONDANSETRON 4 MG/2 ML VIAL ONE ×2 (16:37→22:08)
[2020-06-04] MEDS ORDERED: MORPHINE 4 MG/ML SYR ONE ×3 (16:37→22:08)
[2020-06-04 17:02] LABS: Urine Blood 2+ (NEG); Urine Glucose NEGATIVE (NEG); Urine Protein 1+ (NEG)
--- NOTE | 2020-06-04 17:14 | RAD REPORT ---
EXAM DESCRIPTION: US - Abdomen Exam Limited - 06/04/2020 4:43 pm CLINICAL HISTORY: EPIGASTRIC PAIN COMPARISON: Stone Protocol dated 10/17/2019 FINDINGS: Multiple variably sized gallstones are present. Small to moderate quantity of sludge prese nt. There is no wall thickening or pericholecystic fluid. No common duct stone or biliary tree dilatation identified. IMPRESSION: Multiple gallstones and sludge are present. No wall thickening or pericholecystic fluid. No duct stone or biliary dilatation.
[2020-06-04 17:56] LABS: Absolute Lymphocytes (CBC) 0.3 K/uL (0.7-4.9); Basophils % 0.2 % (0-1.3); Hematocrit 44.3 % (39.6-49.0); Lymphocytes % 4.5 % (15.3-44.8); MPV 8.6 fL (7.6-11.3); RBC Red Blood Cell Count 4.94 M/uL (4.33-5.43)
[2020-06-04 17:58] LABS: Protime INR 1.27
[2020-06-04 18:14] LABS: ALT/SGPT 31 U/L (12-78); AST/SGOT 31 U/L (15-37); Albumin 2.7 g/dL (3.4-5.0); Alkaline Phosphatase 128 U/L (45-117); BUN Blood Urea Nitrogen 12 mg/dL (7-18); Bicarbonate 27 mmol/L (21-32); Bilirubin Direct 12.8 mg/dL (0-0.2); Glucose Level 125 mg/dL (74-106); Lipase 45 U/L (73-393); NT PRO-BNP 255 pg/mL (<125); Potassium 3.7 mmol/L (3.5-5.1); Protein, Total 7.3 g/dL (6.4-8.2); Sodium Level 139 mmol/L (136-145); Troponin (Emerg Dept Use Only) < 0.02 ng/mL (0.0-0.045)
[2020-06-04 18:17] LABS: Bilirubin Total 15.9 mg/dL (0.2-1.0)
--- NOTE | 2020-06-04 19:07 | RAD REPORT ---
EXAM DESCRIPTION: CT - Abdomen Pelvis W Contrast - 06/04/2020 6:42 pm CLINICAL HISTORY: abdominal pain, jaundice COMPARISON: Stone Protocol dated 10/17/2019 TECHNIQUE: Biphasic, helical CT imaging of the abdomen and pelvis was performed following 100 ml non -ionic IV contrast. No oral contrast administered. All CT scans are performed using dose optimization technique as appropriate and may include automated exposure control or mA/KV adjustment according to patient size. FINDINGS: No acute lung base finding. No pericardial thickening or effusion. Small hiatal hernia is present. Circumferential wall thickening of the distal esophagus is present similar to comparison. Nu merous varices are seen at the gastroesophageal junction. No focal liver lesion on noncontrast imaging. Prominent nodular contour to the liver capsule. Left lo be is enlarged relative to the right. No portal vein thrombus identified. Splenomegaly to 19 cm is pr esent. Cholelithiasis is present with multiple stones seen. Gallbladder wall thickening is present wi th minimal stranding in the adjacent fat. Extrahepatic biliary tree is prominent. No intrahepatic dil atation seen. . Symmetric renal function is seen with no hydronephrosis or suspicious renal mass. No pyelonephritis o r acute parenchymal process. Nonobstructing 8 mm calculus present lower pole left kidney. No adrenal abnormalities. Partially filled urinary bladder shows no suspicious finding. Prostate gland within no rmal limits. The absence of intraluminal content limits gastric assessment. No gross change in the stomach from pr ior imaging. No dilated large or small bowel. Appendix normal. Moderate sigmoid diverticulosis presen t. Trace free fluid along the superior lateral liver margin. Numerous varices seen in the upper abdomen. No free air, free fluid or inflammatory stranding. No hernia, mass or bulky lymphadenopathy. No suspicious bony findings. IMPRESSION: Cirrhotic liver changes with splenomegaly and numerous varices in the upper abdomen. Multi stone cholelithiasis as previously seen. There is wall thickening or edema present with minimal stranding in the adjacent fat. Gallbladder findings could be secondary to the cirrhosis. Acute mile cystitis is a consideration as well.
[2020-06-04] MEDS ORDERED: MAGNESIUM SULFATE 1 gm IVPB 1 GM/100 ML BAG IV ONE (19:26)
[2020-06-04 19:59] LABS: Blood Morphology Comment NOT SEEN (NOT SEEN); Platelet Estimate DECR; White Blood Cell Scan OK (OK)
--- NOTE | 2020-06-04 20:14 | EDPHYS ---
Physician Documentation [facility] Name: Burton Mcduffie Age: 70 yrs Sex: Male : 1950 Arrival Date: 06/04/2020 Time: 15:03 Bed 6 Private MD: ED Physician Kaleb Espinoza HPI: 06/04 15:26 This 70 yrs old Male presents to ER via EMS with complaints of Abdominal jmm Pain, Jaundice. 15:26 The patient presents with abdominal pain. Onset: The symptoms/episode began/occurred jmm gradually, 1 week(s) ago. The symptoms do not radiate. Associated signs and symptoms: Pertinent positives: fever. The symptoms are described as achy. This is a 70 year old male with a history of htn, hlp, DM, hypothyroidism that presents to the ED with complaints of epigastric abdominal pain, bloating, dysuria beginning approx 1 week ago. Patient states he initially noticed dark red urination about a week ago. Patient is currently being monitored due to a diagnosis of leukemia. The patient was sent from clinic due to jaundice today . Historical: - Allergies: 15:15 Amitriptyline; ph - Home Meds: 15:15 Tricor 145 mg Oral tab 1 tab once daily [Active]; Levoxyl 75 mcg Oral tab 1 tab once ph daily [Active]; Flomax 0.4 mg Oral cp24 1 cap once daily [Active]; carvedilol 12.5 mg oral tab 1 tab every 12 hours [Active]; losartan 100 mg oral tab 1 tab once daily [Active]; metformin 1,000 mg Oral tab 1 tab 2 times per day [Active]; Tresiba FlexTouch U-200 200 unit/mL (3 mL) subcutaneous inpn [Active]; esomeprazole magnesium 40 mg oral cpDR 1 cap once daily [Active]; allopurinol 300 mg Oral tab 1 tab once daily [Active]; Cipro 500 mg Oral tab 1 tab every 12 hours [Active]; - PMHx: 15:15 Hypertension; Hyperlipidemia; Diabetes - IDDM; Hypothyroidism; Leukemia; GERD; ph Arthritis; BPH; Neuropathy; UTI; Kidney stones; - PSHx: 15:15 Knee surgery; ph - Immunization history:: Adult Immunizations unknown. - Social history:: Smoking status: Patient denies any tobacco usage or history of. Patient/guardian denies using alcohol. ROS: 15:26 Constitutional: Negative for fever, chills, and weight loss, Cardiovascular: Negative [facility] for chest pain, palpitations, and edema, Respiratory: Negative for shortness of breath, cough, wheezing, and pleuritic chest pain. 15:26 Abdomen/GI: Positive for abdominal pain. 15:26 : Positive for hematuria. 15:26 All other systems are negative. Exam: 15:26 Constitutional: This is a well developed, well nourished patient who is awake, alert, jmm and in no acute distress. Head/Face: atraumatic. Eyes: EOMI, no conjunctival erythema appreciated ENT: Moist Mucus Membranes Neck: Trachea midline, Supple Chest/axilla: Normal chest wall appearance and motion. Cardiovascular: Regular rate and rhythm. No edema appreciated Respiratory: Normal respirations, no respiratory distress appreciated 15:26 Back: Normal ROM Skin: General appearance color normal MS/ Extremity: Moves all extremities, no obvious deformities appreciated, no edema noted to the lower extremities Neuro: Awake and alert, normal gait Psych: Behavior is normal, Mood is normal, Patient is cooperative and pleasant 15:26 Abdomen/GI: Inspection: distension, Bowel sounds: normal, Palpation: soft, mild abdominal tenderness, in the right upper quadrant and left upper quadrant. 16:34 ECG was reviewed by the Attending Physician. [facility] Vital Signs: 15:04 BP 177 / 88; Pulse 95; Resp 14; Temp 99.0(O); Pulse Ox 99% on R/A; Weight 111.13 kg; ph Height 5 ft. 9 in. (175.26 cm); Pain 5/10; 16:10 BP 166 / 82; Pulse 93; Resp 16; Pulse Ox 100% on R/A; ph 17:05 BP 158 / 77; Pulse 102; Resp 18; Pulse Ox 94% on R/A; ph 18:17 BP 165 / 81; Pulse 106; Resp 23; Pulse Ox 92% on R/A; hb 19:20 BP 145 / 81; Pulse 109; Resp 20; Temp 99; Pulse Ox 99% ; Pain 3/10; rr5 20:41 BP 138 / 82; Pulse 108; Resp 20; Pulse Ox 96% ; rr5 21:30 BP 133 / 75; Pulse 115; Resp 17; Pulse Ox 98% on 2 lpm NC; rr5 22:00 BP 142 / 77; Pulse 110; Resp 19; Pulse Ox 97% on 2 lpm NC; rr5 15:04 Body Mass Index 36.18 (111.13 kg, 175.26 cm) ph MDM: 15:17 Patient medically screened. [facility] 20:10 Data reviewed: vital signs, nurses notes. Counseling: I had a detailed discussion with [facility] the patient and/or guardian regarding: the historical points, exam findings, and any diagnostic results supporting the discharge/admit diagnosis, lab results, the need to transfer to another facility. ED course: I discussed the patient with Dr. Bhatti whom accepted transfer. 06/04 15:18 Order name: Basic Metabolic Panel; Complete Time: 18:22 [facility] 06/04 15:18 Order name: CBC with Diff; Complete Time: 20: [facility] 06/04 15:18 Order name: LFT's; Complete Time: 18:22 [facility] 06/04 15:18 Order name: Magnesium; Complete Time: 18:22 [facility] 06/04 15:18 Order name: NT PRO-BNP; Complete Time: 18:22 [facility] 06/04 15:18 Order name: PT-INR; Complete Time: 18:13 [facility] 06/04 15:18 Order name: Troponin (emerg Dept Use Only); Complete Time: 18:22 [facility] 06/04 15:18 Order name: Lipase; Complete Time: 18:22 [facility] 06/04 15:18 Order name: US Abdomen Limited; Complete Time: 17:17 [facility] 06/04 16:46 Order name: Urine Dipstick--Ancillary (enter results); Complete Time: 17:04 06/04 18:23 Order name: CT Abd/Pelvis - IV Contrast Only; Complete Time: 19:11 [facility] 06/04 20:00 Order name: CBC Smear Scan; Complete Time: 20:01 [facility] 06/04 15:18 Order name: EKG; Complete Time: 15:20 [facility] 06/04 15:18 Order name: Cardiac monitoring; Complete Time: 15: [facility] 06/04 15:18 Order name: EKG - Nurse/Tech; Complete Time: 15:41 [facility] 06/04 15:18 Order name: IV Saline Lock; Complete Time: 15: [facility] 06/04 15:18 Order name: Labs collected and sent; Complete Time: 15:41 jmm 06/04 15:18 Order name: O2 Per Protocol; Complete Time: 16:09 [facility] 06/04 15:18 Order name: O2 Sat Monitoring; Complete Time: 16:09 [facility] 06/04 19:25 Order name: Urine Dipstick-Ancillary (obtain specimen); Complete Time: 19:34 jmm EC:34 Rate is 92 beats/min. Rhythm is regular. QRS [place] is Normal. HI interval is normal. QRS jmm interval is normal. QT interval is normal. No Q waves. T waves are Normal. No ST changes noted. Reviewed by me. Administered Medications: 16:48 Drug: Zofran (Ondansetron) 4 mg Route: IVP; Site: right antecubital; ph 18:32 Follow up: Response: No adverse reaction ph 16:50 Drug: morphine 4 mg Route: IVP; Site: right antecubital; ph 17:30 Follow up: Response: No adverse reaction ph 18:31 Drug: morphine 4 mg Route: IVP; Site: right antecubital; ph 19:30 Follow up: Response: No adverse reaction rr5 19:19 Drug: Magnesium Sulfate 1 grams Route: IVPB; Infused Over: 1 hrs; Site: right rr5 antecubital; 20:15 Follow up: Response: No adverse reaction; IV Status: Completed infusion; IV Intake: rr5 100ml 21:59 Drug: Zofran (Ondansetron) 4 mg Route: IVP; Site: right antecubital; rr5 22:03 Follow up: Response: Other; given at transfer rr5 22:01 Drug: morphine 4 mg {Note: rass 0.} Route: IVP; Site: right antecubital; rr5 22:02 Follow up: Response: Other; given upon transfer rr5 Disposition: 06/05 07:09 Co-signature as Attending Physician, Kaleb Espinoza MD I agree with the assessment and kdr plan of care. Disposition: 06/04/20 20:13 Transfer ordered to [facility]. Diagnosis are Jaundice, Abdominal Pain. - Reason for transfer: Higher level of care. - Accepting physician is Magy. - Condition is Stable. - Problem is new. - Symptoms are unchanged. Signatures: Dispatcher [employer] KERRYPA RittgKaleb bhatia MD MD kdr Mickail, Joel, PA PA jmm Hall, Patricia, RN RN ph Prasad Hawkins RN RN rr5 Corrections: (The following items were deleted from the chart) 06/04 22:06 20:13 06/04/2020 20:13 Transfer ordered to [facility]. rr5 Diagnosis is Jaundice; Abdominal Pain. Reason for transfer: Higher level of care. Accepting physician is Magy. Condition is Stable. Problem is new. Symptoms are unchanged. carole
--- NOTE | 2020-06-04 20:14 | ER ---
Nurse's Notes [facility] Name: Burton Mcduffie Age: 70 yrs Sex: Male : 1950 Arrival Date: 06/04/2020 Time: 15:03 Bed 6 Private MD: Diagnosis: Jaundice;Abdominal Pain Presentation: 06/04 15:04 Chief complaint: EMS states: Pt sent from [facility], c/o RUQ pain, jaundice, lower ph abdominal pain, and hematuria, hx of Hep C but took medicine to cure it. Also reports recent dx of leukemia. Coronavirus screen: Client denies travel out of the [place] in the last 14 days. Ebola Screen: No symptoms or risks identified at this time. Initial Sepsis Screen: Does the patient meet any 2 criteria? No. Patient's initial sepsis screen is negative. Does the patient have a suspected source of infection? No. Patient's initial sepsis screen is negative. Risk Assessment: Do you want to hurt yourself or someone else? Patient reports no desire to harm self or others. Onset of symptoms was June 04, 2020. 15:04 Method Of Arrival: EMS: [facility] 15:04 Acuity: MEAGAN 3 ph Historical: - Allergies: 15:15 Amitriptyline; ph - Home Meds: 15:15 Tricor 145 mg Oral tab 1 tab once daily [Active]; Levoxyl 75 mcg Oral tab 1 tab once ph daily [Active]; Flomax 0.4 mg Oral cp24 1 cap once daily [Active]; carvedilol 12.5 mg oral tab 1 tab every 12 hours [Active]; losartan 100 mg oral tab 1 tab once daily [Active]; metformin 1,000 mg Oral tab 1 tab 2 times per day [Active]; Tresiba FlexTouch U-200 200 unit/mL (3 mL) subcutaneous inpn [Active]; esomeprazole magnesium 40 mg oral cpDR 1 cap once daily [Active]; allopurinol 300 mg Oral tab 1 tab once daily [Active]; Cipro 500 mg Oral tab 1 tab every 12 hours [Active]; - PMHx: 15:15 Hypertension; Hyperlipidemia; Diabetes - IDDM; Hypothyroidism; Leukemia; GERD; ph Arthritis; BPH; Neuropathy; UTI; Kidney stones; - PSHx: 15:15 Knee surgery; ph - Immunization history:: Adult Immunizations unknown. - Social history:: Smoking status: Patient denies any tobacco usage or history of. Patient/guardian denies using alcohol. Screenin:15 Abuse screen: Denies threats or abuse. Denies injuries from another. Nutritional ph screening: No deficits noted. Tuberculosis screening: No symptoms or risk factors identified. Fall Risk None identified. Assessment: 15:16 General: Appears in no apparent distress. comfortable, well groomed, Behavior is calm, ph cooperative, appropriate for age. Pain: Complains of pain in suprapubic area and right upper quadrant. Neuro: Level of Consciousness is awake, alert, obeys commands, Oriented to person, place, time, situation. Cardiovascular: Capillary refill < 3 seconds in bilateral Patient's skin is warm and dry. Respiratory: Airway is patent Respiratory effort is even, unlabored, Respiratory pattern is regular, symmetrical. GI: Abdomen is round Reports lower abdominal pain, upper abdominal pain, nausea. : Reports pain in suprapubic area blood in urine. EENT: Sclera/Cornea jaundiced. Derm: Skin is intact, Skin is jaundiced. Musculoskeletal: Circulation, motion, and sensation intact. Range of motion: intact in all extremities. 16:15 Reassessment: Patient appears in no apparent distress at this time. Patient and/or hb family updated on plan of care and expected duration. Pain level reassessed. Patient is alert, oriented x 3, equal unlabored respirations, skin warm/dry/pink. 17:15 Reassessment: Patient appears in no apparent distress at this time. No changes from hb previously documented assessment. Patient and/or family updated on plan of care and expected duration. Pain level reassessed. Patient is alert, oriented x 3, equal unlabored respirations, skin warm/dry/pink. 18:17 Reassessment: Patient appears in no apparent distress at this time. Patient and/or hb family updated on plan of care and expected duration. Pain level reassessed. Patient is alert, oriented x 3, equal unlabored respirations, skin warm/dry/pink. 19:20 General: Appears in no apparent distress. comfortable, Behavior is calm, cooperative, rr5 appropriate for age. Pain: Complains of pain in abdomen Pain currently is 3 out of 10 on a pain scale. Quality of pain is described as aching, Pain began gradually, Is intermittent. Neuro: Level of Consciousness is awake, alert, obeys commands, Oriented to person, place, time, situation. Cardiovascular: Capillary refill < 3 seconds Patient's skin is warm and dry. Respiratory: Airway is patent Respiratory effort is even, unlabored, Respiratory pattern is regular, symmetrical. GI: Abdomen is round Reports lower abdominal pain, upper abdominal pain, nausea. EENT: No signs and/or symptoms were reported regarding the EENT system. Derm: Skin is intact, Skin is jaundiced. Musculoskeletal: Circulation, motion, and sensation intact. Capillary refill < 3 seconds. 20:20 Reassessment: Patient appears in no apparent distress at this time. Patient is alert, rr5 oriented x 3, equal unlabored respirations, skin warm/dry/pink. for transfer to other facility. 20:42 Reassessment: [facility] spoke to daljit BARRAZA report given and accepted the case. rr5 21:03 Reassessment: Patient O2 sat at 88% when asleep, O2 at 94% RA while awake; place on 2L lp1 NC. 22:05 Reassessment: Patient appears in no apparent distress at this time. Patient is alert, rr5 oriented x 3, equal unlabored respirations, skin warm/dry/pink. report given to [facility] vitally stable. patient complaint of abdominal pain pain score 8/10. ED provider aware with order made and carried out. Vital Signs: 15:04 BP 177 / 88; Pulse 95; Resp 14; Temp 99.0(O); Pulse Ox 99% on R/A; Weight 111.13 kg; ph Height 5 ft. 9 in. (175.26 cm); Pain 5/10; 16:10 BP 166 / 82; Pulse 93; Resp 16; Pulse Ox 100% on R/A; ph 17:05 BP 158 / 77; Pulse 102; Resp 18; Pulse Ox 94% on R/A; ph 18:17 BP 165 / 81; Pulse 106; Resp 23; Pulse Ox 92% on R/A; hb 19:20 BP 145 / 81; Pulse 109; Resp 20; Temp 99; Pulse Ox 99% ; Pain 3/10; rr5 20:41 BP 138 / 82; Pulse 108; Resp 20; Pulse Ox 96% ; rr5 21:30 BP 133 / 75; Pulse 115; Resp 17; Pulse Ox 98% on 2 lpm NC; rr5 22:00 BP 142 / 77; Pulse 110; Resp 19; Pulse Ox 97% on 2 lpm NC; rr5 15:04 Body Mass Index 36.18 (111.13 kg, 175.26 cm) ph ED Course: 15:03 Patient arrived in ED. ph 15:04 Eduard Jackson PA is PHCP. [facility] 15:04 Kaleb Espinoza MD is Attending Physician. [facility] 15:06 Triage completed. ph 15:15 Patient has correct armband on for positive identification. Bed in low position. Call light in reach. Side rails up X 1. Pulse ox on. NIBP on. Door closed. Noise minimized. Warm blanket given. 15:16 Arm band placed on right wrist. Patient placed in an exam room, on a stretcher. ph 15:40 Lipase Sent. 5 15:40 Basic Metabolic Panel Sent. [facility] 15:40 CBC with Diff Sent. [facility] 15:40 LFT's Sent. [facility] 15:41 Magnesium Sent. [facility] 15:41 NT PRO-BNP Sent. [facility] 15:41 PT-INR Sent. [facility] 15:41 Troponin (emerg Dept Use Only) Sent. [facility] 15:41 Initial lab(s) drawn, by tn, sent to lab. EKG done. Maintain EMS IV. Dressing intact. [facility] Site clean \T\ dry. 15:42 technical sales representative on. [facility] 16:00 Warm blanket given. [facility] 16:08 Amanda Ly, RN is Primary Nurse. ph 16:43 US Abdomen Limited In Process Unspecified. EDMS 18:16 Notified Nurse Practitioner and/or Physician Senior Biostatistician of a critical lab result(s), sv total bilirubin-15.9, magnesium-1.0. 18:43 CT Abd/Pelvis - IV Contrast Only In Process Unspecified. EDMS 19:25 Initiated transfer to [facility] spoke with Shilpi Sharif. Pt. diagnosis is acute ar5 cholecystitis and cholelithiasis, need GI and a med surg bed. 19:36 Eduard GIPSON speaking with Dr. Becker, general surgeon. ar5 20:03 Eduard Jackson speaking to Dr. Bhatti, hospitalist. ar5 20:27 Acceptance given by Shilpi Sharif. Pt. going to [facility] [id number]. Accepting ar[address] Judi Bhatti, hospitalist. 20:55 [facility] will be here to transfer pt. in 25-30 minutes. ar5 22:06 No provider procedures requiring assistance completed. Patient transferred, IV remains rr5 in place. intact, No redness/swelling at site. Administered Medications: 16:48 Drug: Zofran (Ondansetron) 4 mg Route: IVP; Site: right antecubital; ph 18:32 Follow up: Response: No adverse reaction ph 16:50 Drug: morphine 4 mg Route: IVP; Site: right antecubital; ph 17:30 Follow up: Response: No adverse reaction ph 18:31 Drug: morphine 4 mg Route: IVP; Site: right antecubital; ph 19:30 Follow up: Response: No adverse reaction rr5 19:19 Drug: Magnesium Sulfate 1 grams Route: IVPB; Infused Over: 1 hrs; Site: right rr5 antecubital; 20:15 Follow up: Response: No adverse reaction; IV Status: Completed infusion; IV Intake: rr5 100ml 21:59 Drug: Zofran (Ondansetron) 4 mg Route: IVP; Site: right antecubital; rr5 22:03 Follow up: Response: Other; given at transfer rr5 22:01 Drug: morphine 4 mg {Note: rass 0.} Route: IVP; Site: right antecubital; rr5 22:02 Follow up: Response: Other; given upon transfer rr5 Intake: 20:15 IV: 100ml; Total: 100ml. rr5 Outcome: 20:13 ER care complete, transfer ordered by MD. lam 22:06 Transferred by ground EMS to [facility], Transfer form completed. rr5 22:06 Condition: stable 22:06 Instructed on the need for transfer. 22:06 Patient left the ED. rr5 Signatures: Dispatcher [employer] EDRosalina Kaplan RN Eduard Godoy PA PA jmm Pena, Laura, RN RN lp1 Amanda Ly RN RN Katt Barba RN RN hb Martinez, Maria [facility] Prasad Hawkins RN RN rr5 Rupinder Smith ar5 Corrections: (The following items were deleted from the chart) 21: 21:03 Reassessment: Patient O2 sat at 88% when asleep; place on [address] [place], [place] [id number] lp1 21:42 19:36 Eduard GIPSON speaking with Rosita, general surgeon ar5 ar5
[2020-06-04 22:39] VITALS: TEMP 99
[2020-06-04 22:44] VITALS: BP 142/77; O2SAT 97
--- NOTE | 2020-06-05 12:26 | EKG ---
Test Date: 2020-06-04 Test Time: 15:55:11 [place] Former Hand: JOSIAS MEASUREMENT RESULTS: Intervals: Rate: 92 GA: 148 QRSD: 90 QT: 326 QTc: 403 [place]: P: 27 GA: 148 QRS: 28 T: 41 INTERPRETIVE STATEMENTS: Normal sinus rhythm Normal ECG Compared to ECG 07/24/2011 15:22:38 No significant changes Electronically Signed On 06-05-20 12:24:27 CDT by Davy Cardenas
== END 2020-06-04 22:06 | disposition short-term general hospital (02) ==
LOC: ER 15:01
DX: R10.9 Unspecified abdominal pain (principal); C95.90 Leukemia, unspecified not having achieved remission; I10 Essential (primary) hypertension; E11.9 Type 2 diabetes mellitus without complications; E03.9 Hypothyroidism, unspecified; Z79.4 Long term (current) use of insulin; Z88.8 Allergy status to other drugs, medicaments and biological substances
CPT/HCPCS: 96365; 93005; 85025; 80048; 36415; 83735; 85610; 80076; 81003; 84484; 83690; 83880; 74177; 76705; 96375; 99285; Q9967; J3475; J2405 ×2

== ENCOUNTER 2021-12-07 22:45 | Emergency (ER) | payer OTHER ==
--- OUTSIDE RECORDS SUMMARY | 2021-12-07 23:14 | XMS REPORT | Clinical Summary ---
:1950 Author Organization [facility] Address [address] [place] [address] Care Team Providers Name Role Phone Jaclyn Hua Unavailable Marguerite Pratt MD Primary Care Provider Allergies No known active allergies Medications Medication Sig Dispensed Refills Start Date End Date Status tamsulosin (FLOMAX) 0.4 Take 1 capsule 0 02/11/2020 Active mg 24 hr capsule by mouth daily. levothyroxine (SYNTHROID, Take 1 tablet 0 02/11/2020 Active LEVOTHROID) 75 mcg tablet by mouth daily. carvedilol (COREG) 12.5 Take 1 tablet 0 02/18/2020 Active mg tablet by mouth twice daily. esomeprazole (NexIUM) 40 Take 1 capsule 0 02/11/2020 Active MG capsule by mouth daily. losartan (COZAAR) 100 mg Take 1 tablet 0 02/18/2020 Active tablet by mouth daily. metFORMIN (GLUCOPHAGE) Take 500 mg by 0 12/16/2019 Active 1000 mg tablet mouth twice daily. TRESIBA FLEXTOUCH U-200 Inject 42 Units 0 12/30/2019 Active 200 unit/mL (3 mL) under the skin insulin pen daily. vit C/E/zinc Take 1 capsule 0 Ac tive ox/leyla/lut/zeax (ICAPS by mouth twice AREDS2 ORAL) daily. acetaminophen (TYLENOL) Take 500 mg by 0 Active 500 mg tablet mouth as needed for mild pain. fenofibrate Take 145 mg by 0 Act nuris nanocrystallized (TRICOR) mouth daily. 145 mg tablet cyclobenzaprine Take 10 mg by 0 Active (FLEXERIL) 10 mg tablet mouth daily. 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 Splenomegaly 03/05/2020 Surgical History Surgery Date Site/Laterality Comments COLONOSCOPY 09/10/2017 - 09/09/2018 Medical History Medical History Date Comments Hypertension 2005 Asbestosis [id number] Hepatitis 1998 Clear of Gastric reflux Renal stone 2018 Sexual dysfunction Benign prostatic hyperplasia Anemia Disorder of thyroid gland Diabetes mellitus Basal cell carcinoma of skin 2016 Family History Medical History Relation Name Comments Heart disease Brother COPD Sister HIV Son Relation Name Status Comments Brother Sister Son Social History Tobacco Use Types Packs/Day Years Used Date Never Smoker 0 0 Smokeless Tobacco: Never Used Alcohol Use Standard Drinks/Week Comments Not Currently 0 (1 standard drink = 0.6 oz pure alcoho l) Sex Assigned at Date Recorded Not on file Obstetrics History Last Filed Vital Signs Not on file Plan of Treatment Health Maintenance Due Date Last Done Comments COVID-19 Vaccination (1) 1964 Results Not on fileafter 12/07/2020 Insurance Payer Benefit Plan / Subscriber ID Effective Dates Phone Addre ss Type Group MEDICARE MEDICARE PART [id number] 2017-Kim [phone] [facility] Medicare A AND B t 2 SOLUTIONS [address] [place] [phone] Burton Mcduffie Personal/Family Self 1950 [address] (Home) [place] [address] Care Teams Institute Director Relationship Specialty Start Date End Date Jaclyn Hua PCP - External Referring Hematology and 02/09/[address] Oncology [place], [place] [id number] Marguerite Pratt MD PCP - General Leukemia 02/09/20 [address] [place], [place] [id number]
--- OUTSIDE RECORDS SUMMARY | 2021-12-07 23:18 | XMS REPORT | Continuity of Care Document ---
:1950 Author Organization [facility] t Address [address] [place] [address] Care Team Providers Name Role Phone [phone] Primary Care Physician Unavailable ESPERANZA GARCIA Attending Clinician Unavailable RUIZ PETERSEN Attending Clinician Unavailable CESAR DENISE Attending Clinician Unavailable ELSY Attending Clinician Unavailable GUILLE ARANA Attending Clinician Unavailable AILYN Attending Clinician Unavailable ANJALI Attending Clinician Unavailable MELINA ONEIL Attending Clinician Unavailable ISRAEL Attending Clinician Unavailable Nestor HEATH Attending Clinician Unavailable KRISHAN Attending Clinician Unavailable Karen Soliz MD Attending Clinician Guillermo DE LA CRUZ Attending Clinician Gerry Smith MD Attending Clinician Efrain Phipps MD Attending Clinician Esperanza Garcia MD Attending Clinician Nain Solorio RN Attending Clinician Unavailable Rolf Attending Clinician Unavailable Elsy DE LA CRUZ Attending Clinician Unavailable Diogo COOL Attending Clinician Unavailable Viktor BARRAZA Attending Clinician Unavailable Criss Garcia Attending Clinician Unavailable Albina Alexis MD Attending Clinician Eliza Voss PA-C Attending Clinician Ruiz Petersen MD Attending Clinician Anamika Goff NP Attending Clinician Farzad BARRAZA, R Attending Clinician Unavailable Cal BARRAZA, S Attending Clinician Unavailable ALINE, IN Attending Clinician Unavailable Charlotte Gale MD Attending Clinician Eloy Funez MD Attending Clinician Aline DE LA CRUZ, In Attending Clinician Allison Bettencourt NP Attending Clinician ANAMIKA GOFF Attending Clinician Unavailable Shelbi Au RN Attending Clinician Unavailable JOSÉ MIGUEL FANG Attending Clinician Unavailable Caron DE LA CRUZ Attending Clinician Solis DE LA CRUZ, Nedra Attending Clinician Leoncio DE LA CRUZ, José Miguel Attending Clinician Dylan Reece MD Attending Clinician Mirna Lilly NP Attending Clinician Albina ALEXIS Attending Clinician Unavailable Melina Oneil MD Attending Clinician Israel DE LA CRUZ Attending Clinician CAMELIA Attending Clinician Unavailable Cesar Denise MD Attending Clinician Clive Diaz MD Attending Clinician Randy Kline CRNA Attending Clinician Karen Sherman Attending Clinician Unavailable Suman CALLE Attending Clinician Unavailable Norah Lopez NP Attending Clinician Stuart Pacheco MD Attending Clinician Rocael BARRAZA Attending Clinician Unavailable William BARRAZA Attending Clinician Unavailable Nestor Harris MD Attending Clinician Cosmo French MD Attending Clinician Adriane DE LA CRUZ, Carlie Attending Clinician Artemio Crooks MD Attending Clinician [phone] [place] DE LA CRUZ Attending Clinician Leroy DE LA CRUZ Attending Clinician Pawel cMbride MD Attending Clinician Rosalind Friedman DO Attending Clinician Renee Leal Attending Clinician Unavailable Lore Attending Clinician Unavailable Rony Attending Clinician Unavailable Kaleb Daniel MD Attending Clinician Andre Sorenson MD, Ruperto Attending Clinician Unavailable Katja Rodriges MD Attending Clinician Esperanza Ramirez CRNA Attending Clinician GINNA Attending Clinician Unavailable OLIVIA Attending Clinician Unavailable ANGIE Attending Clinician Unavailable Judi HORNER Attending Clinician Unavailable Rajendra DE LA CRUZ Attending Clinician CORDELL Attending Clinician Unavailable JORDEN Attending Clinician Unavailable OMAR ROSAS Attending Clinician Unavailable GUILLERMO Admitting Clinician Unavailable RUIZ PETERSEN Admitting Clinician Unavailable CESAR DENISE Admitting Clinician Unavailable ELSY Admitting Clinician Unavailable GUILLE ARANA Admitting Clinician Unavailable KRISHAN Admitting Clinician Unavailable ELOY FUNEZ Admitting Clinician Unavailable NEDRA ELY Admitting Clinician Unavailable DYLAN REECE Admitting Clinician Unavailable BHUMIKA Admitting Clinician Unavailable Payers Payer Name Policy Type Policy Number Effective Date Expiration Date S yamileth MEDICARE A B [id number] 2017 00:00:00 BCBS PPO POS EPO [id number] 2020 2020 CHOICE 00:00:00 00:00:00 CDC REVIEW [id number] 2020 2020 00:00:00 00:00:00 COVID VACCINE [id number] 2020-10-10 2021-02-08 ADMIN / TESTING 00:00:00 00:00:00 MEDICARE PART A [id number] 2017-01-08 \\T\\ B - MEDICARE 00:00:00 PPO/EPO - BCBS [id number] 2020-03-10 00:00:00 CVCP-BCBS [id number] [place] [id number] 2020-03-10 00:00:00 MEDICARE PART A [id number] 2017-01-08 AND B 00:00:00 LUISTMEENAKSHI HMO [id number] 2016-03-10 2020-03-10 00:00:00 00:00:00 Problems Condition Condition Condition Status Onset Resolution Last Treating Co mments Source Name Details Category Date Date Treatment Clinician Date Generalize Generalize Disease Active [facility] d weakness d weakness 10-10 Joanne kes - 00:00: Medical Center Acute Acute Disease Active 2020-[address] [facility] [address] [facility] stroke 00:[facility]: t & Plan: Medical [address] [place] [address] g of this note might be different from the original. He will require follow up with Neurology for managemen t for clearance prior to re-listin g for OLT. He was hospitali zed at [facility] on 09/06/21 and found to have CVA- after hospital discharge home he had tonic clonic seizure and was life flighted to [facility]. He was recently discharge d back to home and appears to have no residual effects from either event. Abdominal Abdominal Disease Active 2020-[address] [facility] [facility] wound wound 2-02 [facility] dehiscence dehiscence 00:00: Me dical , initial , initial 00 Cent er encounter encounter Wound, Wound, Disease Active 2020-[address] [facility] - abdominal abdominal 00:00: t & Plan: M edical wall, wall, [address] [place] [address] anterior anterior g of this note might be different from the original. He continues to require packing of abdominal wall wound due to wound infection to RUQ from open cholecyst ectomy on 03/15/2021. No evidence of infection at this time- continue dressing changes twice daily. Chest pain Chest pain Disease Active Last [facility] 7- Assessmen González - 00:00: t & Plan: Medical [address] [place] [address] g of this note might be different from the original. He came on 04/07 to get his surgical drain removed and started having chest pain for which he was sent to the ED. He was noted to have an elevated troponin secondary to NSTEMI and underwent heart cath on 04/12/21 which noted no evidence of disease. Shortness Shortness Disease Active Last [facility] of breath of breath 04-07 Assessmen Quinton gonzales - 00:00: t & Plan: Medical [address] [place] [address] g of this note might be different from the original. reports oxygen saturatio n was <90% at home but in clinic - measuring 95% on room air. Denies sick contacts or cough. We recommend further testing and evaluatio n in ER. NSTEMI, NSTEMI, Disease Active [facility] initial initial 04-07 [facility] - episode of episode of 00:00: Sc dical care care Center Ascites Ascites Disease Active Last [facility] - Assessmen González - 00:00: t & Plan: Medical [address] [place] [address] g of this note might be different from the original. He has increasin g ascites on exam today- he also reports chest pain and increasin g shortness of breath. We will send him to ER for further evaluatio n. Cholelithi Cholelithi Disease Active Last [facility] asis asis 03-15 [facility]men [facility] - 00:00: t & Plan: Medical [address] [place] [address] g of this note might be different from the original. He is s/p open cholecyst ectomy on 03/22 with drain placement . Drain removed on 04/07. CT A/P noted persisten t inflammat ion in the RUQ with tiny residual abscess for which he was started on augmentin and levaquin for 14 days total. He now reports back to clinic with continued complaint s of RUQ swelling at the site of previous incisions . Pre-operat Pre-operat Disease Active Last [facility] nuris exam nuris exam 02-28 Assessmen [place] es - 00:00: t & Plan: Medical [address] [place] [address] g of this note might be different from the original. Discussed risks and benefits of cholecyst ectomy. Due to decompens ated liver disease, he is considere d a high risk candidate . He is currently listed for OLT. We will need to do open procedure . Discussed expected post operative course. Will proceed with pre-opera tive testing including UA with reflex to culture, and COVID testing. Hematemesi Hematemesi Disease Active 2019-[address] s s 2-21 [facility] - 00:00: Medical 00 [place] Abdominal Abdominal Disease Active 2019-[address] pain, pain, 1-12 Ass[facility]men [facility] - unspecifie unspecifie 00:00: t & Plan: Medical d d 00 Formattin [place] abdominal abdominal g of this location location note might be different from the original. Increasin g abdominal pain and redness at the site of previous abdominal incision from open cholecyst ectomy. We preformed bedside I&D with large amount of pus draining from two wounds. 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 Obesity Obesity Disease Active [facility] (BMI (BMI College 30-39.9) 30-39.9) of Medicin e Mixed Mixed Disease Active [facility] hyperlipid hyperlipid Co llege emia emia of Medicin e Decompensa Decompensa Disease Active Last [facility] chilango chilango Assessmen [facility] - hepatic hepatic t & Plan: Medic al [facility] of this note might be different from the original. 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 His MELD has remained low. He will require further workup with neurology in order to clear him for liver transplan t. Portal Portal Disease Active Last [facility] hypertensi hypertensi Assessmen [facility] - on on t & Plan: [facility] g of this note might be different from the original. Complicat ions of portal venous hypertens ion include ascites, esophagea l varices, splenomeg nichol, thrombocy topenia, hepatic encephalo hiro and hypersple nism that indicate decompens ation of cirrhosis , which significa ntly increases the risk of with surgery. Hepatic Hepatic Disease Active [facility] encephalop encephalop Joanne kes - athy [facility] Esophageal Esophageal Disease Active Last [facility] varices varices Assessmen maura - t & Plan: [facility] g of this note might be different from the original. He is s/p esophagea l banding on 02/08/2021. Hepatitis Hepatitis Disease Active [facility] B core B core [facility] - antibody antibody Medica l positive positive [place] Cholangiti Cholangiti Disease Active Last [facility] s s Assessmen González - t & Plan: [facility] g of this note might be different from the original. He recently began having right sided abdominal pain in January 2021. He has a history of cholangit is. On 0, he underwent ERCP with sphincter otomy. The biliary tree was swept, two large stones and pus were delivered and one plastic stent was placed into the common bile duct. He completed inpatient and outpatien t antibioti c treatment . Afterward s he had additiona l ERCP without stent noted and sphincter otomy wide open with debris swept out and no stent left in 07/2020. 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 He will require strict blood glucose control - continued managemen t from PCP. Other Other Disease Active Last [facility] cirrhosis cirrhosis Assessmen L ukes - of liver of liver t & Plan: Med ical [facility] g of this note might be different from the original. 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 He is currently listed for OLT. MELD is 8. GI GI Disease Active [facility] bleeding bleeding [facility] Sleep Sleep Disease Active Overview: [facility] apnea apnea [facility] - g of this Medical note Center might be different from the original. uses cpap nightly. Hypertensi Hypertensi Disease Active Overview : [facility] on on Formattin [facility] - g of this Medical note Center might be different from the original. controlle d with medsLast Assessmen t & Plan: Formattin g of this note might be different from the original. BP is stable on current regimen. Type II Type II Disease Active [facility] diabetes diabetes Colleg e mellitus, mellitus, of uncontroll uncontroll Me dicin ed ed e (HCCode) (HCCode) Allergies, Adverse Reactions, Alerts Allergy Allergy Status Severity Reaction(s) Onset Inactive Treating Comm ents Source Name Type Date Date Clinician ADHESIVE Allergy Active Med Other 2020-[address] [facility] [facility] TAPE 09-14 [facility] - 00:00: Medical 00 Center Adhesive Drug Active Other (See 2020-[address] Tape Allergy Comments) 09-14 gCan only [place] es - 00:00: use paper Medical 00 tape Center NO KNOWN Allergy Active [facility] ALLERGIE [facility] Family History Family Member Diagnosis Comments Start Date Stop Date Source Natural brother Heart disease Natural brother Moreau's palsy [facility] Natural brother Heart attack [facility] Natural sister COPD MD Viral andujar Natural son HIV MD [place] Natural father Stroke [facility] Maternal grandmother Heart disease [facility] [place] Natural mother Heart disease [facility] Social History Social Habit Start Date Stop Date Quantity Comments Source History SDOH [facility] - Alcohol Std Drinks Medica l Center History SDOH [facility] - Alcohol Binge Medical Beryl ter History SDOH [facility] - Alcohol Comment Medical C enter Exposure to Not sure [facility] kes - SARS-CoV-2 (event) Medica l Center History SDOH 2020-06-05 2020-06-[address] [facility] - Alcohol Frequency 00:00:00 00:00:00 Medical Center Tobacco use and 2020-03-04 2020-03-04 Smokeless tobacco MD [place] exposure 00:00:00 00:00:00 non-user Alcohol intake 2020-03-04 2020-03-04 Ex-drinker MD Viral andujar 00:00:00 00:00:00 (finding) Sex Ass[birth year] At [birth year] MD [place] on 00:00:00 00:00:00 Smoking Status Start Date Stop Date Source Never smoked tobacco [facility] ege of Medicine Medications Ordered Filled Start Stop Current Ordering Indication Dosage Frequency Signature Comments Components Source Medication Medication Date Date Medication? Clinician (SIG) Name Name carvedilol Yes 12.5mg Take 12.[address] [facility] (COREG) 3-25 mg by [place] 12.5 MG 14:23: mouth 2 of tablet 17 times Medicin daily e (with meals). levETIRAcet Yes [id number] 1000mg Take 1,000 Juan am (KEPPRA) 3-25 mg by [place] 1000 MG 00:00: mouth two of TABS 00 times Medicin daily. e clopidogrel Yes [id number] 75mg Take [address] [facility] (PLAVIX) 75 3-25 Tablet by Col lege MG Tablet 00:00: mouth of 00 daily. Medicin e Aspirin 81 Yes [id number] 81mg Take [address] [facility] MG CAPS 3-25 by mouth College 00:00: daily. of 00 Medicin e levothyroxi Yes 75ug Take [address] [facility] ne 2-10 mcg by [facility]ukes - (SYNTHROID, 18:26: mouth Medic al LEVOTHROID) 45 Every Center 75 MCG morning on tablet an empty stomach. tamsulosin Yes .4mg QD Take 0.[address] (FLOMAX) 2-10 mg by [facility] - 0.4 mg Cap 18:26: mouth Medica l 24 hr 45 daily. Center capsule carvediloL Yes 12.5mg Take 12.[address] (COREG) 2-10 mg by [facility] - 12.5 MG 18:26: mouth 2 Medical tablet 45 (two) Center times daily with breakfast and dinner. Missing or Yes Q.5D 2 (two) [facility] Non-Formula 2-10 times [facility] - ry 18:26: daily Medical Medication 45 [facility] . lidocaine Yes 1{patch Place [address] (LIDODERM) 2-10 } patch onto Dania es - 5 % patch 18:26: the skin 2 Me dical 45 (two) Center times daily as needed Remove & Discard patch within 12 hours or as directed by . levETIRAcet Yes 1000mg Q.5D Take 1,[address] am (KEPPRA) 2-10 mg by [facility] - 1000 MG 18:26: mouth 2 Medical tablet 45 (two) Center times daily. levETIRAcet No 10mg/kg Q.5D Take [address] am (Keppra) 1-06 01-06 mg/kg by Dania es - 100 mg/mL 13:50: 00:00 mouth 2 Medi camilo solution 32 :00 (two) Center times daily. magnesium Yes Cirrhosis 400mg Q.5D Take [address] oxide 1-06 of liver tablet [facility]ukes - (MAG-OX) 00:00: with (400 mg Medica l 400 mg 00 ascites, total) by Cent er (241.3 mg unspecified mouth 2 magnesium) hepatic (two) tablet cirrhosis times type (HCC) daily. clopidogreL 2020-09- No 75mg QD Take [address] (PLAVIX) 75 2-31 12-30 tablet (75 L ukes - mg tablet 00:00: 00:00 mg total) Me dical 00 :00 by mouth Center daily. spironolact 2020-09 Yes Cirrhosis 50mg QD Take [address] [facility] one 2-30 of liver tablet (50 [facility] - (ALDACTONE) 00:00: with mg total) M edical 50 MG 00 ascites, by mouth Center tablet unspecified daily. hepatic cirrhosis type (HCC) atorvastati 2020-09 Yes 80mg QD Take [address] [facility] [facility] n (LIPITOR) 2-30 tablet (80 Joanne kes - 80 MG 00:00: mg total) Medical tablet 00 by mouth Center nightly. aspirin 81 2020-09 Yes 81mg QD Take 1 [facility] MG chewable 2-30 tablet (81 Joanne kes - tablet 00:00: mg total) Medica l 00 by mouth Center daily. cilostazoL 2020-09 Yes 100mg Q.5D Take [address] (PLETAL) 2-30 tablet [facility] - 100 MG 00:00: (100 mg Medical tablet 00 total) by Center mouth 2 (two) times daily. furosemide 2020-09- No Cirrhosis 20mg Q.5D Take [address] (LASIX) 20 11-07-30 of liver tablet (20 [facility] - MG tablet 00:00: 00:00 with mg total) Me dical 00 :00 ascites, by mouth 2 Cente r unspecified (two) hepatic times cirrhosis daily. type (HCC) cefTRIAXone 2020-09- No 2g Q24H Inject [address] (ROCEPHIN) 10-17-28 intravenou Joanne kes - 2 g in 00:00: 00:00 sly daily. Medi camilo sodium 00 :00 Center chloride 0.9 % (NS) 100 mL (V2B) IVPB insulin 2020-09 30U QD Inject [address] degludec 2- 12-06 Units [facility] - (TRESIBA 10:22: 00:00 subcutaneo Me dical FLEXTOUCH 36 :00 usly daily Cent er U-200) 200 . unit/mL (3 mL) InPn insulin 2020-[address] [facility] lispro 2- 12-06 subcutaneo [facility] - (HumaLOG) 10:22: 00:00 usly 2 Medic al 100 unit/mL 35 :00 (two) Center InPn times daily with breakfast and dinner 10 units in AM16 units in PM . insulin 2020-09- No 40U QD Inject [address] degludec 2-06 01-05 Units [facility] - (Tresiba 00:00: 23:59 subcutaneo Me dical FlexTouch 00 :00 usly daily Cent er U-200) 200 for 30 unit/mL (3 days. mL) InPn insulin 2020-09- No 12U Inject [address] lispro 2-06 01-05 Units [facility] - (HumaLOG) 00:00: 23:59 subcutaneo M edical 100 unit/mL 00 :00 usly 3 Center In (three) times daily before meals for 30 days 10 units in AM 16 units in PM . spironolact 2020-09- No Cirrhosis 50mg QD Take [address] [facility] one 09-10-30 of liver tablet (50 Luke s - (ALDACTONE) 00:00: 00:00 with mg total) Medical 50 MG 00 :00 ascites, by mouth Center tablet unspecified daily. hepatic cirrhosis type (HCC) amoxicillin 2020-09 No Intra-abdom 1{tbl} Q.5D Take [address] -clavulanat 0-14 11-16 inal tablet by Joanne kes - e 00:00: 00:00 infection mouth 2 Medi camilo (Augmentin) 00 :00 (two) Center 875-125 mg times per tablet daily. ursodioL Yes 300mg Q.5D Take [address] (ACTIGALL) 8-17 capsule [facility] - 300 mg 00:00: (300 mg Medical capsule 00 total) by Center mouth 2 (two) times daily. aspirin 81 2020- No 324mg QD Take [address] [facility] MG chewable 8-05 12-30 tablets Luke s - tablet 00:00: 00:00 (324 mg Medical 00 :00 total) by Center mouth daily. amoxicillin No 1{tbl} Take [address] -clavulanat 04-13-13 tablet by Joanne magnify360s - e 00:00: 23:59 mouth Medical (AUGMENTIN) 00 :00 every 12 Cent er 875-125 mg (twelve) per tablet hours for 9 days. levoFLOXaci 2020- No 500mg Q24H Take [address] n 04-13 tablet [facility] - (LEVAQUIN) 00:00: 23:59 (500 mg Med ical 500 MG 00 :00 total) by Center tablet mouth daily for 9 days. furosemide No Cirrhosis 20mg Q.5D Take [address] [address] (LASIX) 20 7-27 12-27 of liver tablet (20 [facility] - MG tablet 00:00: 00:00 with mg total) Me dical 00 :00 ascites, by mouth 2 Cente r unspecified (two) hepatic times cirrhosis daily. type (HCC) acetaminoph 2020- No Acute 1{tbl} Take [address] en-codeine 7- 07-26 post-operat tablet by Lumaura - (Tylenol-Co 00:00: 23:59 nuris pain mouth Medical deine #3) 00 :00 every 6 Center 300-30 mg (six) per tablet hours as needed for Pain for up to 7 days. Max Daily Amount: 4 tablets levoFLOXaci 2020- No 500mg Q24H Take [address] n 03-23 tablet [facility] - (LEVAQUIN) 00:00: 23:59 (500 mg Med ical 500 MG 00 :00 total) by Center tablet mouth daily for 7 days. fenofibrate 2020- No 145mg QD Take [address] (TRICOR) 03-22 mg by [facility] - 145 MG 09:33: 00:00 mouth Medical tablet 00 :00 daily. [place] omeprazole 2020- No 40mg QD Take [address] (PriLOSEC) 03-22 by mouth Luke s - 40 MG 09:29: 00:00 daily. Medical capsule 50 :00 Center metroNIDAZO 2020- No 500mg Take [address] LE (FLAGYL) 03-22 tablet [facility] - 500 MG 00:00: 23:59 (500 mg Medical tablet 00 :00 total) by Center mouth every 8 (eight) hours for 7 days. amoxicillin 2020- No 1{tbl} Q.5D Take [address] -clavulanat 03-22 tablet by Joanne Haddad e 00:00: 23:59 mouth 2 Medical (AUGMENTIN) 00 :00 (two) Center 875-125 mg times per tablet daily for 7 days. acetaminoph 2020- No 1{tbl} Take [address] en-codeine 03-22 tablet by [place] - (Tylenol-Co 00:00: 00:00 mouth Medi camilo deine #3) 00 :00 every 6 Center 300-30 mg (six) per tablet hours as needed for Pain for up to 7 days. Max Daily Amount: 4 tablets allopurinoL Yes 300mg QD Take [address] (ZYLOPRIM) 6-30 mg by [facility] - 300 MG 00:00: mouth Medical tablet 00 daily. [place] ursodiol Yes 300mg Take [address] [facility] (ACTIGALL) 6-01 capsule by Col lege 300 MG 00:00: mouth two of capsule 00 times Medicin daily. e ursodioL 2020- No 300mg Q.5D Take [address] (ACTIGALL) 6 08-17 mg by [facility] - 300 mg 00:00: 00:00 mouth 2 Medical capsule 00 :00 (two) Center times daily. rifAXIMin Yes Cirrhosis 550mg Q.5D Take [address] 550 mg Tab 01-04 of liver tablet [place] es - 00:00: with (550 mg Medical 00 ascites, total) by Center unspecified mouth 2 hepatic (two) cirrhosis times type (HCC) daily. esomeprazol 2021- No Cirrhosis 40mg QD Take [address] e (NexIUM) 01-04 04- of liver capsule L ukes - 40 MG 00:00: 23:59 with (40 mg Medical capsule 00 :00 ascites, total) by Beryl ter unspecified mouth hepatic daily. cirrhosis type (HCC) magnesium 2021- No Cirrhosis 400mg Q.5D Take [address] oxide 01-04- of liver tablet [facility] - (MAG-OX) 00:00: 00:00 with (400 mg Medic al 400 mg 00 :00 ascites, total) by [facility] er (241.3 mg unspecified mouth 2 magnesium) hepatic (two) tablet cirrhosis times type (HCC) daily. spironolact 2020- No Cirrhosis 50mg QD Take [address] one 01-04 of liver tablet (50 Luke s - (ALDACTONE) 00:00: 00:00 with mg total) Medical 50 MG 00 :00 ascites, by mouth Center tablet unspecified daily. hepatic cirrhosis type (HCC) furosemide 2020- No Cirrhosis 20mg QD Take [address] (LASIX) 20 01-04- of liver tablet (20 [facility] - MG tablet 00:00: 00:00 with mg total) Me dical 00 :00 ascites, by mouth Center unspecified daily. hepatic cirrhosis type (HCC) viscous Yes 15mL Use as [facility] lidocaine 2-12 directed [facility] - 2% 00:00: 15 mLs in Medical (lidocaine) [address] 2 % Soln or throat mucosal as needed solution . Lidocaine Yes 15mL Take 15 mL Ba ylor HCl 2-12 by mouth 3 College (LIDOCAINE 00:00: times of VISCOUS 00 daily as Medicin HCL) 2 % needed. e SOLN Na Yes [SUPREP] Juan Sulfate-K 1-21 Take as College Sulfate-Mg 00:00: directed. of Sulf 00 Medicin (SUPREP e BOWEL PREP KIT) 17.5-3.13-1 .6 GM/177ML SOLN omeprazole 2019-09 Yes 40mg Take 1 [facility] (PRILOSEC) 2- capsule by Col lege 40 MG 00:00: mouth of capsule 00 daily. Medicin e esomeprazol 2019-09- No 40mg Take [address] [facility] e (NexIUM) -02 11- capsule [facility] - 40 MG 00:00: 00:00 (40 mg Medical capsule 00 :00 total) by Center mouth 2 (two) times daily with breakfast and dinner. magnesium 2019-09 Decompensat 400mg Q.5D Take [address] [facility] oxide 10-21 ed hepatic tablet [facility] - (MAG-OX) 00:00: 00:00 cirrhosis (400 mg Medical 400 mg 00 :00 (HCC) total) by Center (241.3 mg mouth 2 magnesium) (two) tablet times daily. spironolact 2019-09- No Decompensat 50mg QD Take [address] [facility] one 10-21 ed hepatic tablet (50 Joanne kes - (ALDACTONE) 00:00: 00:00 cirrhosis mg total) Medical 50 MG 00 :00 (HCC) by mouth Center tablet daily. rifAXIMin 2019-09- No 550mg Q.5D Take [address] [facility] 550 mg Tab 10-13 tablet [facility] - 00:00: 00:00 (550 mg Medical 00 :00 total) by Center mouth 2 (two) times daily. furosemide 2019-09- No 20mg QD Take [address] [facility] (LASIX) 20 10-13 tablet (20 Joanne kes - MG tablet 00:00: 00:00 mg total) Me dical 00 :00 by mouth Center daily. Glucagon 2019-09 Yes [id number] 3mg 3 mg by Pao jefferson (BAQSIMI 0-25 Nasal College TWO PACK) 3 00:00: route as of MG/DOSE 00 needed for Medici n POWD Other e (unrespons nuris). and call 911 if not waking up, may repeat one more dose into nostril in 15min Glucagon 2019-09 Yes [id number] 1mg Inject [address] [facility] (GVOKE 0-25 mg into College HYPOPEN 00:00: the skin of 2-PACK) 1 00 as needed Medic in MG/0.2ML for Other e SOAJ (unrespons nuris). and call 911 if not waking up Glucagon 2019-09 Yes [id number] 3mg 3 mg by Pao jefferson (BAQSIMI 0-25 Nasal [facility] TWO PACK) 3 00:00: route as of MG/DOSE 00 needed for Medici n POWD Other e (unrespons nuris). and call 911 if not waking up, may repeat one more dose into nostril in 15min Glucagon 2019-09 Yes [id number] 1mg Inject [address] [facility] (GVOKE 0-25 mg into College HYPOPEN 00:00: the skin of 2-PACK) 1 00 as needed Medic in MG/0.2ML for Other e SOAJ (unrespons nuris). and call 911 if not waking up carvedilol 2019-09 Yes 12.5mg Take 12.5 Juan (COREG) 0-22 mg by [place] 12.5 MG 20:21: mouth 2 of tablet 32 times Medicin daily e (with meals). insulin 2019-09 Yes [id number] [facility] lispro 0-22 [facility] (HUMALOG) 00:00: of 100 UNIT/ML 00 Medicin injection e insulin 2019-09 Yes [id number] 12 units B ayalcon lispro 0-22 with each College (HUMALOG) 00:00: meal of 100 UNIT/ML 00 Medicin injection e Continuous 2019-[id number] [facility] Blood Gluc 0-22 every 2 Colleg e Sensor 00:00: weeks, of (FREESTYLE 00 test sugar Med icin ARIELLE 14 before e DAY SENSOR) each meal, MISC before sleep, as needed for lows Continuous 2019-[id number] [facility] Blood Gluc 0-22 every 2 Colleg e Call Center Operator 00:00: weeks, of (FREESTYLE 00 test sugar Med icin ARIELLE 14 before e DAY READER) each meal, KRISTI before sleep, as needed for lows Insulin Pen 2019-09 Yes [id number] with B aylor Needle (BD 0-22 insulin 4 Jerrell ege PEN NEEDLE 00:00: x daily of MICRO U/F) 00 Medicin 32G X 6 MM e MISC insulin 2019-09 Yes [id number] [facility] lispro 0-22 College (HUMALOG) 00:00: of 100 UNIT/ML 00 Medicin injection e insulin 2019-09 Yes [id number] 12 units B aylor lispro 0-22 with each College (HUMALOG) 00:00: meal of 100 UNIT/ML 00 Medicin injection e Continuous 2019-[id number] [facility] Blood Gluc 0-22 every 2 Colleg e Sensor 00:00: weeks, of (FREESTYLE 00 test sugar Med icin ARIELLE 14 before e DAY SENSOR) each meal, MISC before sleep, as needed for lows Continuous 2019-[id number] [facility] Blood Gluc 0-22 every 2 Colleg e Call Center Operator 00:00: weeks, of (FREESTYLE 00 test sugar Med icin ARIELLE 14 before e DAY READER) each meal, KRISTI before sleep, as needed for lows Insulin Pen 2019-09 Yes [id number] with B aylor Needle (BD 0-22 insulin 4 Jerrell ege PEN NEEDLE 00:00: x daily of MICRO U/F) 00 Medicin 32G X 6 MM e MISC TRESIBA 2019-09 Yes 22U Inject 22 [facility] FLEXTOUCH 0-19 Units into Jerrell ege 200 UNIT/ML 00:00: the skin of SOPN 00 daily. Medicin e TRESIBA 2019-09 Yes 22U Inject 22 [facility] FLEXTOUCH 0-19 Units into Jerrell ege 200 UNIT/ML 00:00: the skin of SOPN 00 daily. Medicin e furosemide 2019-09 Yes 40mg Take 40 mg B aylor (LASIX) 40 0-03 by mouth Colle ge MG tablet 00:00: daily. of 00 Medicin e furosemide 2019-09 Yes 40mg Take 40 mg B aylor (LASIX) 40 0-03 by mouth Colle ge MG tablet 00:00: daily. of 00 Medicin e spironolact 2019-09 Yes 50mg Take [address] [facility] one 0-02 by mouth [place] (ALDACTONE) 00:00: daily. of 50 MG 00 Medicin tablet e XIFAXAN 550 2019-09 Yes 550mg Take 550 B aylor MG TABS 0-02 mg by [place] 00:00: mouth two of 00 times Medicin daily. e CONSTULOSE 2019-09 Yes 30mg Take 30 mg B aylor 10 GM/15ML 0-02 by mouth 3 Col lege solution 00:00: times of 00 daily. Medicin e lactulose 2019-09 Yes 20g Q.[id number] Take [address] [facility] (CHRONULAC) 0-02 [id number] mLs (20 g [facility] - 20 gram/30 00:00: 3D total) by Sc dical mL solution 00 mouth 3 Cente r (three) times daily. Magnesium 2019-09 Yes 400mg Take 400 [place] aclon Oxide 400 0-02 mg by [place] (241.3 Mg) 00:00: mouth two of MG TABS 00 times Medicin daily. e spironolact 2019-09 Yes 50mg Take 50 mg Juan one 0-02 by mouth [place] (ALDACTONE) 00:00: daily. of 50 MG 00 Medicin tablet e XIFAXAN 550 2019-09 Yes 550mg Take 550 B aylor MG TABS 0-02 mg by [place] 00:00: mouth two of 00 times Medicin daily. e CONSTULOSE 2019-09 Yes 30mg Take 30 mg B aylor 10 GM/15ML 0-02 by mouth 3 Col lege solution 00:00: times of 00 daily. Medicin e Magnesium 2019-09 Yes 400mg Take 400 [place] alcon Oxide 400 0-02 mg by [place] (241.3 Mg) 00:00: mouth two of MG TABS 00 times Medicin daily. e oxyCODONE 2019-09- No [facility]mg Take [facility] (ROXICODONE 0-02 07-13 tablet (5 Joanne kes - ) 5 MG 00:00: 00:00 mg total) Medic al immediate 00 :00 by mouth Center release every 6 tablet (six) hours as needed for Pain. Max Daily Amount: 20 mg vit 2019-0 Yes 1{capsu Take 1 MD C/E/zinc 8-04 le} capsule by Norris lin ox/leyla/lut 14:57: mouth n /zeax 46 twice (ICAPS daily. AREDS2 ORAL) fenofibrate Yes 145mg Take 145 M D nanocrystal 8-04 mg by Andersburke bro 14:57: mouth n (TRICOR) 45 daily. 145 mg tablet cyclobenzap 2020-0 Yes 10mg Take 10 mg MD rine 8-04 by mouth Anderso (FLEXERIL) 14:57: daily. n 10 mg 45 tablet acetaminoph 2020-0 Yes 500mg Take 500 M D en 8-04 mg by Anderso (TYLENOL) 14:55: mouth as n 500 mg 49 needed for tablet mild pain. carvedilol 2020-0 Yes 1{tbl} Take 1 MD (COREG) 6-10 tablet by Anderso 12.5 mg 00:00: mouth n tablet 00 twice daily. losartan 2020-0 Yes 1{tbl} Take 1 MD (COZAAR) 6-10 tablet by Kobe o 100 mg 00:00: mouth n tablet 00 daily. levothyroxi 2020-0 Yes 75ug Take 75 [place] alcon ne 6-03 mcg by [place] (SYNTHROID) 00:00: mouth of 75 MCG 00 daily. Medicin tablet e esomeprazol 2020-0 Yes 40mg Take [address] [facility] e (NEXIUM) 6-03 by mouth Colle ge 40 MG 00:00: daily. of capsule 00 Medicin e levothyroxi 2020-0 Yes 75ug Take 75 [place] alcon ne 6-03 mcg by [place] (SYNTHROID) 00:00: mouth of 75 MCG 00 daily. Medicin tablet e tamsulosin 2020-0 Yes 1{capsu Take 1 MD [...] MG 00:00: mouth n capsule 00 daily. TRESIBA 2020-0 Yes 42U Inject 42 MD FLEXTOUCH 4-21 Units Anderso U-200 200 00:00: under the n unit/mL (3 00 skin mL) insulin daily. pen metFORMIN 2020-0 Yes 500mg Take 500 MD (GLUCOPHAGE 4-07 mg by Anderso ) 1000 mg 00:00: mouth n tablet 00 twice daily. Immunizations Ordered Immunization Filled Immunization Date Status Commen ts Source Name Name Covid-19 Vaccine 2020-10-[address] [facility] (Pfizer/[employer]ion[employer]) Covid-19 Vaccine 2020-10-[address] [facility]) [facility] Influenza Hd 2020-07-[address] [facility] Colle ge 00:00:00 of Medicine Influenza Hd 2020-07-01 [address] [facility] ge 00:00:00 of Medicine Vital Signs Vital Name Observation Time Observation Value Comments Source WEIGHT 2021-03-22 06:35:00 99.1 kg WEIGHT 2021-03-21 04:04:00 103 kg WEIGHT 2021-03-20 06:14:00 102 kg WEIGHT 2021-03-19 06:09:00 101.5 kg WEIGHT 2021-03-17 04:38:00 102.105 kg WEIGHT 2021-03-16 02:00:00 98.3 kg HEIGHT 2021-03-15 06:08:00 175.3 cm WEIGHT 2021-03-15 06:08:00 99.5 kg HEIGHT 2021-02-08 13:43:00 175.3 cm WEIGHT 2021-02-08 13:43:00 102.83 kg HEIGHT 2021-02-02 12:15:00 175.3 cm WEIGHT 2021-02-02 12:15:00 99.791 kg HEIGHT 2020-10-22 11:39:00 175.3 cm WEIGHT 2020-10-22 11:39:00 102.604 kg HEIGHT 2020-10-19 10:46:00 175.3 cm WEIGHT 2020-10-19 10:46:00 100.699 kg HEIGHT 2020-07-19 07:43:00 175 cm WEIGHT 2020-07-19 07:43:00 106.641 kg HEIGHT 2020-06-04 00:00:00 175.3 cm WEIGHT 2020-06-04 00:00:00 112.447 kg Systolic blood 2021-12-02 19:21:00 94 mm[Hg] [facility] Medicine Diastolic blood 2021-12-02 19:21:00 60 mm[Hg] [facility] Medicine Heart rate 2021-12-02 19:21:00 91 /min [facility] Body height 2021-12-02 19:21:00 175.3 cm [facility] HEIGHT 2021-09-06 12:42:00 175.3 cm WEIGHT 2021-09-06 12:42:00 92.987 kg HEIGHT 2021-09-06 12:42:00 175.3 cm WEIGHT 2021-09-06 12:42:00 92.987 kg HEIGHT 2021-08-11 09:52:00 167.6 cm WEIGHT 2021-08-11 09:52:00 94.348 kg HEIGHT 2021-08-11 09:52:00 167.6 cm WEIGHT 2021-08-11 09:52:00 94.348 kg HEIGHT 2021-08-11 08:51:00 175.3 cm WEIGHT 2021-08-11 08:51:00 94.348 kg HEIGHT 2021-08-11 08:51:00 175.3 cm WEIGHT 2021-08-11 08:51:00 94.348 kg HEIGHT 2021-07-26 11:03:00 175.3 cm WEIGHT 2021-07-26 11:03:00 94.53 kg HEIGHT 2021-07-26 11:03:00 175.3 cm WEIGHT 2021-07-26 11:03:00 94.53 kg HEIGHT 2021-07-25 08:34:00 175.3 cm WEIGHT 2021-07-25 08:34:00 94.484 kg HEIGHT 2021-07-25 08:34:00 175.3 cm WEIGHT 2021-07-25 08:34:00 94.484 kg HEIGHT 2021-07-19 08:07:00 175.3 cm WEIGHT 2021-07-19 08:07:00 95.664 kg HEIGHT 2021-07-15 08:33:00 175.3 cm WEIGHT 2021-07-15 08:33:00 95.709 kg HEIGHT 2021-07-19 08:07:00 175.3 cm WEIGHT 2021-07-19 08:07:00 95.664 kg HEIGHT 2021-07-15 08:33:00 175.3 cm WEIGHT 2021-07-15 08:33:00 95.709 kg HEIGHT 2021-07-11 08:27:00 175.3 cm WEIGHT 2021-07-11 08:27:00 96.798 kg HEIGHT 2021-07-11 08:27:00 175.3 cm WEIGHT 2021-07-11 08:27:00 96.798 kg HEIGHT 2021-06-23 08:46:00 175.3 cm WEIGHT 2021-06-23 08:46:00 94.983 kg HEIGHT 2021-06-23 08:46:00 175.3 cm WEIGHT 2021-06-23 08:46:00 94.983 kg HEIGHT 2021-04-26 09:38:00 175.3 cm WEIGHT 2021-04-26 09:38:00 99.927 kg HEIGHT 2021-04-26 09:38:00 175.3 cm WEIGHT 2021-04-26 09:38:00 99.927 kg WEIGHT 2021-04-13 09:00:00 96.117 kg WEIGHT 2021-04-11 09:00:00 96.9 kg HEIGHT 2021-04-07 17:56:00 175.3 cm WEIGHT 2021-04-07 17:56:00 98 kg HEIGHT 2021-04-07 11:04:00 175.3 cm WEIGHT 2021-04-07 11:04:00 100.699 kg WEIGHT 2021-04-13 09:00:00 96.117 kg WEIGHT 2021-04-11 09:00:00 96.9 kg HEIGHT 2021-04-07 17:56:00 175.3 cm WEIGHT 2021-04-07 17:56:00 98 kg HEIGHT 2021-04-07 11:04:00 175.3 cm WEIGHT 2021-04-07 11:04:00 100.699 kg HEIGHT 2021-04-07 09:53:00 175.3 cm WEIGHT 2021-04-07 09:53:00 98.476 kg HEIGHT 2021-04-07 09:53:00 175.3 cm WEIGHT 2021-04-07 09:53:00 98.476 kg HEIGHT 2021-04-05 12:05:00 175.3 cm WEIGHT 2021-04-05 12:05:00 101.152 kg HEIGHT 2021-04-05 12:05:00 175.3 cm WEIGHT 2021-04-05 12:05:00 101.152 kg HEIGHT 2021-03-28 09:50:00 175.3 cm WEIGHT 2021-03-28 09:50:00 100.29 kg HEIGHT 2021-03-28 09:50:00 175.3 cm WEIGHT 2021-03-28 09:50:00 100.29 kg WEIGHT 2021-03-22 06:35:00 99.1 kg WEIGHT 2021-03-21 04:04:00 103 kg WEIGHT 2021-03-20 06:14:00 102 kg WEIGHT 2021-03-19 06:09:00 101.5 kg WEIGHT 2021-03-17 04:38:00 102.105 kg WEIGHT 2021-03-16 02:00:00 98.3 kg HEIGHT 2021-03-15 06:08:00 175.3 cm WEIGHT 2021-03-15 06:08:00 99.5 kg HEIGHT 2021-02-28 09:01:00 175.3 cm WEIGHT 2021-02-28 09:01:00 103.42 kg HEIGHT 2021-02-28 09:01:00 175.3 cm WEIGHT 2021-02-28 09:01:00 103.42 kg HEIGHT 2021-02-22 09:38:00 175.3 cm WEIGHT 2021-02-22 09:38:00 104.327 kg HEIGHT 2021-02-22 09:38:00 175.3 cm WEIGHT 2021-02-22 09:38:00 104.327 kg HEIGHT 2021-02-08 13:43:00 175.3 cm WEIGHT 2021-02-08 13:43:00 102.83 kg HEIGHT 2021-02-02 12:15:00 175.3 cm WEIGHT 2021-02-02 12:15:00 99.791 kg HEIGHT 2021-01-04 11:10:00 175.3 cm WEIGHT 2021-01-04 11:10:00 106.006 kg HEIGHT 2021-01-04 11:10:00 175.3 cm WEIGHT 2021-01-04 11:10:00 106.006 kg HEIGHT 2020-10-22 11:39:00 175.3 cm WEIGHT 2020-10-22 11:39:00 102.604 kg HEIGHT 2020-10-19 10:46:00 175.3 cm WEIGHT 2020-10-19 10:46:00 100.699 kg HEIGHT 2020-09-28 09:31:00 175.3 cm WEIGHT 2020-09-28 09:31:00 104.237 kg HEIGHT 2020-09-28 09:31:00 175.3 cm WEIGHT 2020-09-28 09:31:00 104.237 kg HEIGHT 2020-08-30 18:04:00 175.3 cm WEIGHT 2020-08-30 18:04:00 103.239 kg WEIGHT 2020-08-30 11:24:00 58.06 kg HEIGHT 2020-08-30 18:04:00 175.3 cm WEIGHT 2020-08-30 18:04:00 103.239 kg WEIGHT 2020-08-30 11:24:00 58.06 kg HEIGHT 2020-08-12 08:46:00 175.3 cm WEIGHT 2020-08-12 08:46:00 104.69 kg HEIGHT 2020-08-12 08:46:00 175.3 cm WEIGHT 2020-08-12 08:46:00 104.69 kg HEIGHT 2020-07-22 10:42:00 175.3 cm WEIGHT 2020-07-22 10:42:00 106.595 kg HEIGHT 2020-07-22 10:42:00 175.3 cm WEIGHT 2020-07-22 10:42:00 106.595 kg HEIGHT 2020-07-19 07:43:00 175 cm WEIGHT 2020-07-19 07:43:00 106.641 kg HEIGHT 2020-07-15 13:13:00 175.3 cm WEIGHT 2020-07-15 13:13:00 107.049 kg HEIGHT 2020-07-15 13:13:00 175.3 cm WEIGHT 2020-07-15 13:13:00 107.049 kg Systolic blood 2020-07-01 20:13:00 128 mm[Hg] [facility] pressure Medicine Diastolic blood 2020-07-01 20:13:00 78 mm[Hg] [facility] pressure Medicine Heart rate 2020-07-01 20:13:00 80 /min [facility] Respiratory rate 2020-07-01 20:13:00 16 /min [facility] Body height 2020-07-01 20:13:00 175.3 cm [facility] Body weight 2020-07-01 20:13:00 106.142 kg [facility] BMI 2020-07-01 20:13:00 34.56 kg/m2 [facility] WEIGHT 2020-06-22 11:49:00 105.96 kg HEIGHT 2020-06-04 00:00:00 175.3 cm WEIGHT 2020-06-04 00:00:00 112.447 kg HEIGHT 2020-04-13 14:04:11 172.9 cm WEIGHT 2020-04-13 14:04:11 119.6 kg HEIGHT 2020-03-23 13:03:45 172.9 cm WEIGHT 2020-03-23 13:03:45 117.2 kg Systolic blood 2021-10-20 16:34:00 116 mm[Hg] [facility] Diastolic blood 2021-10-20 16:34:00 56 mm[Hg] [facility] Heart rate 2021-10-20 16:34:00 91 /min [facility] Body temperature 2021-10-20 16:34:00 35.72 Nichol [facility] Respiratory rate 2021-10-20 16:34:00 17 /min [facility] Oxygen saturation in 2021-10-20 16:34:00 93 /min [facility] Arterial blood by Medical Ce nter Pulse oximetry Body weight 2021-10-20 04:46:00 90.7 kg [facility] BMI 2021-10-20 04:46:00 29.53 kg/m2 [facility] Body height 2021-10-19 23:00:00 175.3 cm [facility] Procedures Procedure Date / Time Performing Clinician Source Performed POCT-GLUCOSE METER 2021-10-20 17:02:00 Galina Garcia [facility] POCT-GLUCOSE METER 2021-10-20 12:28:00 Galina Garcia [facility] POCT-GLUCOSE METER 2021-10-20 08:45:00 Jose [facility] CBC W/PLT COUNT & AUTO 2021-10-20 04:45:00 Jose [facility] COMPREHENSIVE METABOLIC 2021-10-20 04:45:00 Jose, [facility] CBC W/PLT COUNT & AUTO 2021-10-20 04:45:00 Jose [facility] POCT-GLUCOSE METER 2021-10-19 21:40:00 Jose [facility] POCT-GLUCOSE METER 2021-10-19 20:21:00 Jose [facility] POCT-GLUCOSE METER 2021-10-19 17:37:00 Jose, [facility] POCT-GLUCOSE METER 2021-10-19 12:48:00 Jose [facility] POCT-GLUCOSE METER 2021-10-19 09:00:00 Jose [facility] CBC W/PLT COUNT & AUTO 2021-10-19 04:18:[address] [facility] BASIC METABOLIC PANEL (7) 2021-10-19 04:18:00 MoiseTommy rivera [facility] MAGNESIUM 2021-10-19 04:18:00 Tommy Phipps [facility] VANCOMYCIN LEVEL, TROUGH 2021-10-19 04:18:00 Zhane Rizo [facility] CBC W/PLT COUNT & AUTO 2021-10-19 04:18:[address] [facility] POCT-GLUCOSE METER 2021-10-18 21:17:[address] [facility] POCT-GLUCOSE METER 2021-10-18 15:34:[address] [facility] POCT-GLUCOSE METER 2021-10-18 12:07:00 [facility]SE [facility] 2021-10-18 07:03:00 Moise, demian [facility] POCT-GLUCOSE METER 2021-10-17 20:37:00 Moise, demian [facility] POCT-GLUCOSE METER 2021-10-17 16:45:00 [facility]SE [facility] 2021-10-17 11:43:00 Moise, demian [facility] CT CHEST WITHOUT IV 2021-10-17 09:19:00 Jim Patrick [facility] POCT-GLUCOSE METER 2021-10-17 07:54:00 Moise, [facility] XR CHEST 1 VIEW PORTABLE / 2021-10-17 07:18:00 Jim Patrick [facility] VANCOMYCIN LEVEL, TROUGH 2021-10-17 05:01:00 Vijaya Will [facility] BASIC METABOLIC PANEL (7) 2021-10-17 05:01:00 MoiseTommy rivera pete [facility] POCT-GLUCOSE METER 2021-10-16 20:27:00 Moise, [facility] POCT-GLUCOSE METER 2021-10-16 17:44:00 [facility]ise[facility] PO[facility]SE METER 2021-10-16 12:52:00 Moise demian [facility] POCT-GLUCOSE METER 2021-10-16 08:20:00 Moise demian [facility] CBC W/PLT COUNT & AUTO 2021-10-16 05:21:[address] Moise Abd[address]emian Zuniga [facility] CBC W/PLT COUNT & AUTO 2021-10-16 05:21:00 Moise [address]emian Zuniga [facility] POCT-GLUCOSE METER 2021-10-15 20:39:00 Moise, [facility] POCT-GLUCOSE METER 2021-10-15 16:15:00 Moise, [facility] POCT-GLUCOSE METER 2021-10-15 12:53:00 Moise, [facility] POCT-GLUCOSE METER 2021-10-15 08:25:00 Moise, [facility] XR CHEST 1 VIEW PORTABLE / 2021-10-15 07:11:00 Jim Patrick [facility] CBC W/PLT COUNT & AUTO 2021-10-15 04:55:00 [facility] W[facility] & AUTO 2021-10-15 04:55:00 Moise demian [facility] PROTHROMBIN TIME/INR 2021-10-15 04:54:00 Nancy Smith [facility] BASIC METABOLIC PANEL (7) 2021-10-15 04:54:00 Jim Patrick [facility] C-REACTIVE PROTEIN 2021-10-15 04:54:00 Jim Patrick [facility] MAGNESIUM 2021-10-15 04:54:00 Moise [facility] POCT-GLUCOSE METER 2021-10-14 20:49:00 Moise, [facility] POCT-GLUCOSE METER 2021-10-14 17:08:00 Moise, [facility] POCT-GLUCOSE METER 2021-10-14 12:16:00 Moise [facility] XR CHEST 1 VIEW PORTABLE / 2021-10-14 07:44:00 Jim Patrick [facility] POCT-GLUCOSE METER 2021-10-14 07:42:00 Moise, [facility] PROTHROMBIN TIME/INR 2021-10-14 05:55:00 SerenatonyZeferinopratima [facility] POCT-GLUCOSE METER 2021-10-13 21:28:00 Moise[facility] PO[facility]COSE METER 2021-10-13 15:57:00 Moise[facility] PO[facility]UCOSE METER 2021-10-13 13:09:00 Moise[facility] POCT-[facility]UCOSE METER 2021-10-13 07:50:00 Moise[facility] W/PLT COUNT & AUTO 2021-10-13 06:10:00 Moise, Tommy Zuniga [facility] PROTHROMBIN TIME/INR 2021-10-13 06:10:00 [facility] BASIC METABOLIC PANEL (7) 2021-10-13 06:10:00 Moise, Abdieldemian freeman [facility] CBC W/PLT COUNT & AUTO 2021-10-13 06:10:00 Moise, Tommy Zuniga [facility] PHOSPHORUS 2021-10-13 06:10:00 Moise, demian Zuniga [facility] MAGNESIUM 2021-10-13 06:10:00 Moise, Tommy Zuniga [facility] POCT-GLUCOSE METER 2021-10-12 20:23:00 Moise[facility] POCT-[facility]UCOSE METER 2021-10-12 17:54:00 Moise[facility] POCT-GLUCOSE METER 2021-10-12 11:53:00 Moise, demian [facility] POCT-GLUCOSE METER 2021-10-12 07:49:00 Moise, [facility] W/PLT COUNT & AUTO 2021-10-12 04:55:00 Sarah [facility] COMPREHENSIVE METABOLIC 2021-10-12 04:55:00 Vahe Larios [facility] CBC W/PLT COUNT & AUTO 2021-10-12 04:55:00 Sarah [facility] PROTHROMBIN TIME/INR 2021-10-12 04:54:00 Serenajazmin [facility] POCT-GLUCOSE METER 2021-10-11 16:32:00 Alphonso [facility] POCT-GLUCOSE METER 2021-10-11 12:12:00 Serenatony [facility] CBC W/PLT COUNT & AUTO 2021-10-11 05:46:00 Vahe Larios [facility] (CELLAVISION MANUAL DIFF) 2021-10-11 05:46:00 Vahe Larios [facility] COMPREHENSIVE METABOLIC 2021-10-11 05:46:00 Vahe Larios [facility] CALCIUM, IONIZED 2021-10-11 05:46:00 Vahe Larios [facility] PHOSPHORUS 2021-10-11 05:46:00 [facility] & AUTO 2021-10-11 05:46:00 Vahe Larios [facility] MAGNESIUM 2021-10-11 05:46:00 [facility] C-REACTIVE PROTEIN 2021-10-11 05:46:00 Darnell [facility] D-DIMER 2021-10-11 05:45:00 aDrnell [facility] PROCALCITONIN 2021-10-11 05:45:00 Darnell [facility] POCT-GLUCOSE METER 2021-10-10 21:38:00 Vahe Larios [facility] POCT-GLUCOSE METER 2021-10-10 18:31:00 Guillermo Vahe [facility] SARS-COV2/RT-PCR ([facility] & 2021-10-10 17:03:00 Bev Soliz pe [facility] - REF LABS) [facility] B-TYPE NATRIURETIC FACTOR 2021-10-10 15:51:[address] [facility] (BNP) [facility] LACTIC ACID, VENOUS 2021-10-10 15:37:00 Cruzito Soliz [facility] ECG 12-LEAD 2021-10-10 13:51:02 Hneok Bettencourt [facility] ECG 12-LEAD 2021-10-10 13:51:02 Unknown, Hl7 Doctor [facility] ECG 12-LEAD 2021-10-10 13:36:48 Unknown, Hl7 Doctor [facility] AMMONIA 2021-10-10 13:29:00 Cruzito Soliz [facility] XR CHEST 1 VIEW PORTABLE / 2021-10-10 13:15:[address] [facility] BEDSIDE [facility] BLOOD CULTURE 2021-10-10 13:04:00 Cruzito Soliz [facility] CBC W/PLT COUNT & AUTO 2021-10-10 13:03:[address] [facility] DIFFERENTIAL [facility] CBC W/PLT COUNT & AUTO 2021-10-10 13:03:[address] [facility] DIFFERENTIAL [facility] LACTIC ACID, VENOUS 2021-10-10 13:03:00 Cruzito Soliz [facility] COMPREHENSIVE METABOLIC 2021-10-10 13:03:[address] [facility] PANEL [facility] PROTHROMBIN TIME/INR 2021-10-10 13:03:00 Cruzito Soliz [facility] APTT 2021-10-10 13:03:00 Cruzito Soliz [facility] LIPASE 2021-10-10 13:03:00 Cruzito Soliz [facility] MAGNESIUM 2021-10-10 13:03:00 Rios-Cruzito Kaminski [facility] PHOSPHORUS 2021-10-10 13:03:00 [facility] [place] REPORT OF PROCEDURE - 2021-10-10 00:00:00 Provider, Dottie [facility] ENDOSCOPY SCAN Scanning [facility] MR ABDOMEN WITH & WITHOUT 2021-09-15 12:43:00 Kyle Alexis [facility] CONTRAST [facility] CBC W/PLT COUNT & AUTO 2021-09-15 10:09:00 Mary Voss [facility] CBC W/PLT COUNT & AUTO 2021-09-15 10:09:00 Mary Voss [facility] BASIC METABOLIC PANEL (7) 2021-09-15 10:09:00 Mary Voss [facility] HEPATIC FUNCTION PANEL 2021-09-15 10:09[facility]00 [facility] 2021-09-15 10:09:00 Mary Voss [facility] MAGNESIUM 2021-09-15 10:09:00 Mary Voss [facility] POCT-GLUCOSE METER 2021-09-08 11:31:[address] [facility] POCT-GLUCOSE METER 2021-09-08 07:15:[address] [facility] BASIC METABOLIC PANEL (7) 2021-09-08 04:39:00 Anand Mireles I n [facility] MAGNESIUM 2021-09-08 04:39:00 Anand Mireles In [facility] PHOSPHORUS 2021-09-08 04:39:00 Cathleen Mirelesg In [facility] CBC (HEMOGRAM ONLY) 2021-09-08 04:39:00 Cathleen Mirelesg In [facility] POCT-GLUCOSE METER 2021-09-07 20:49:[address] [place] [place] [facility] 2D ECHO W/ DOPPLER 2021-09-07 19:18:[address] [facility] (CW/PW/COLOR) [facility] POCT-GLUCOSE METER 2021-09-07 16:10:[address] [facility] POCT-GLUCOSE METER 2021-09-07 11:25:[address] [facility] VITAMIN B12 AND FOLATE 2021-09-07 10:36:00 Aaron Montanez [facility] POCT-GLUCOSE METER 2021-09-07 07:29:[address] [facility] CBC (HEMOGRAM ONLY) 2021-09-07 05:39:00 Deedee Funez [facility] BASIC METABOLIC PANEL (7) 2021-09-07 05:38:00 Deedee Funez [facility] MAGNESIUM 2021-09-07 05:38:00 Deedee Funez [facility] PHOSPHORUS 2021-09-07 05:38:00 Deedee Funez [facility] POCT-GLUCOSE METER 2021-09-06 21:41:00 Deedee Funez [facility] MR BRAIN WITHOUT IV 2021-09-06 20:39:00 Deedee Funez [facility] HIGH SENSITIVITY TROPONIN 2021-09-06 18:58:00 Sunita Gale on [facility] SARS-COV2/RT-PCR ([facility] & 2021-09-06 18:24:[address] [facility] REF LABS) [facility] LIMITED 2D ECHOCARDIOGRAM 2021-09-06 17:10:37 Sunita Gale on [facility] XR CHEST 1 VIEW PORTABLE / 2021-09-06 15:32:00 Sunita Gale zon [facility] ECG 12-LEAD 2021-09-06 15:14:49 Unknown, Hl7 Doctor [facility] ECG 12-LEAD 2021-09-06 15:14:49 Unknown, Hl7 Doctor [facility] CBC W/PLT COUNT & AUTO 2021-09-06 14:10:00 Sunita Gale [facility] CBC W/PLT COUNT & AUTO 2021-09-06 14:10:00 Sunita Gale [facility] HIGH SENSITIVITY TROPONIN 2021-09-06 14:10:00 Sunita Gale on [facility] B-TYPE NATRIURETIC FACTOR 2021-09-06 14:10:[address] [facility] (BNP) [facility] HEMOGLOBIN A1C 2021-09-06 13:01[facility]00 [facility]FREE T4 IF INDICATED 2021-09-06 13:01:00 [facility] LIPID PANEL 2021-09-06 13:01:00 [facility] RPR 2021-09-06 13:01:00 [facility] C-REACTIVE PROTEIN 2021-09-06 13:01:00 [facility] APTT 2021-09-06 13:01:00 [facility] PROTHROMBIN TIME/INR 2021-09-06 13:01:00 [facility] COMPREHENSIVE METABOLIC 2021-09-06 13:01:00 Sunita Gale [facility] POCT-GLUCOSE METER 2021-09-06 13:00:00 Sunita Gale [facility] CTA BRAIN 2021-09-06 12:35:00 Raquel Rustthelma [facility] CTA CAROTID 2021-09-06 12:35:00 Raquel Rustthelma [facility] 2D ECHO W/ DOPPLER 2021-09-06 12:23:51 [facility] CT BRAIN/STROKE TEST 2021-09-06 12:22:00 Sunita Gale I [facility] REPORT OF PROCEDURE - 2021-09-06 00:00:[address] [facility] ENDOSCOPY SCAN Scanning [facility] CBC W/PLT COUNT & AUTO 2021-08-29 09:52:00 Gissel Goff [facility] BASIC METABOLIC PANEL (7) 2021-08-29 09:52:00 Gissel Goff [facility] HEPATIC FUNCTION PANEL 2021-08-29 09:52:00 Gissel Goff [facility] PROTHROMBIN TIME/INR 2021-08-29 09:52:00 Gissel Goff [facility] CBC W/PLT COUNT & AUTO 2021-08-29 09:52:00 Gissel Goff [facility] POCT-GLUCOSE METER 2021-08-16 16:14:00 Kirk Fang [facility] POCT-GLUCOSE METER 2021-08-16 12:03:00 Kirk Fang [facility] POCT-GLUCOSE METER 2021-08-16 07:54:00 Kirk Fang [facility] CBC W/PLT COUNT & AUTO 2021-08-16 05:36:00 Aysha Lay [facility] (CELLAVISION MANUAL DIFF) 2021-08-16 05:36:00 Aysha Lay [facility] BASIC METABOLIC PANEL (7) 2021-08-16 05:36:00 Rosanne, [facility] CBC W/PLT COUNT & AUTO 2021-08-16 05:36:00 [facility] POCT-[facility]SE METER 2021-08-15 19:48:00 Leoncio [facility] POCT-GLUCOSE METER 2021-08-15 18:29:00 Leoncio [facility] POCT-GLUCOSE METER 2021-08-15 11:56:00 Leoncio [facility] XR CHEST 1 VIEW PORTABLE / 2021-08-15 10:38:00 Leoncio [facility] POCT-GLUCOSE METER 2021-08-15 08:02:00 Leoncio [facility] CBC W/PLT COUNT & AUTO 2021-08-15 06:06:00 [facility] (CELLAVISION MANUAL DIFF) 2021-08-15 06:06:00 Rosanne [facility] BASIC METABOLIC PANEL (7) 2021-08-15 06:06:00 Rosanne [facility] CBC W/PLT COUNT & AUTO 2021-08-15 06:06:00 [facility] POCT-GLUCOSE METER 2021-08-14 21:15:00 Leoncio [facility] POCT-GLUCOSE METER 2021-08-14 15:57:00 Leoncio [facility] POCT-GLUCOSE METER 2021-08-14 12:14:00 Leoncio [facility] POCT-GLUCOSE METER 2021-08-14 08:13:00 Leoncio [facility] CBC W/PLT COUNT & AUTO 2021-08-14 04:06:00 Rosanne [facility] (CELLAVISION MANUAL DIFF) 2021-08-14 04:06:00 Rosanne [facility] BASIC METABOLIC PANEL (7) 2021-08-14 04:06:00 Aysha Lay [facility] CBC W/PLT COUNT & AUTO 2021-08-14 04:06:00 Aysha Lay [facility] POCT-GLUCOSE METER 2021-08-13 21:29:00 Kirk Fang [facility] POCT-GLUCOSE METER 2021-08-13 16:49:00 Kirk Fang [facility] APTT 2021-08-13 15:24:00 Genaro Rey [facility] POCT-GLUCOSE METER 2021-08-13 12:10:00 Kirk Fang [facility] POCT-GLUCOSE METER 2021-08-13 07:58:00 Kirk Fang [facility] CBC W/PLT COUNT & AUTO 2021-08-13 05:54:00 Aysha Lay [facility] (CELLAVISION MANUAL DIFF) 2021-08-13 05:54:00 [facility] VANCOMYCIN LEVEL, TROUGH 2021-08-13 05:54:00 Destini Dickson [facility] BASIC METABOLIC PANEL (7) 2021-08-13 05:54:00 Aysha Lay [facility] CBC W/PLT COUNT & AUTO 2021-08-13 05:54:00 Aysha Lay [facility] POCT-GLUCOSE METER 2021-08-12 20:56:00 Kirk Fang [facility] POCT-GLUCOSE METER 2021-08-12 18:34:00 Kirk Fang [facility] BLOOD CULTURE 2021-08-12 14:58:00 [facility] BLOOD CULTURE 2021-08-12 14:48:00 [facility] POCT-GLUCOSE METER 2021-08-12 13:43:00 Fang, Kirk [facility] CT ABDOMEN/PELVIS WITH IV 2021-08-12 12:30:[address] [facility] CONTRAST [facility] POCT-GLUCOSE METER 2021-08-12 08:58:00 Lenocio Kirk [facility] CBC W/PLT COUNT & AUTO 2021-08-12 08:21:00 Aysha Lay [facility] (CELLAVISION MANUAL DIFF) 2021-08-12 08:21:00 Rosanne [facility] BASIC METABOLIC PANEL (7) 2021-08-12 08:21:00 [facility] W/PLT COUNT & AUTO 2021-08-12 08:21:00 [facility] POCT-GLUCOSE METER 2021-08-11 21:58:00 Anita Ely [facility] POCT-GLUCOSE METER 2021-08-11 15:53:00 Anita Ely [facility] SARS-COV2/RT-PCR ([facility] & 2021-08-11 14:26:00 Aysha Lay [facility] - REF LABS) [facility] POCT-GLUCOSE METER 2021-08-11 14:08:00 Caron [facility] BLOOD CULTURE 2021-08-11 12:47:00 [facility] 2021-08-11 12:47:00 [facility] IDENTIFICATION PANEL Medical Beryl ter WOUND CULTURE + GRAM STAIN 2021-08-11 12:29:00 Genaro Rey [facility] BLOOD CULTURE 2021-08-11 12:14:00 Caron [facility] CBC W/PLT COUNT & AUTO 2021-08-11 10:42:00 Caron [facility] CBC W/PLT COUNT & AUTO 2021-08-11 10:42:00 [facility] COMPREHENSIVE METABOLIC 2021-08-11 10:42:00 Reardon, [facility] C-REACTIVE PROTEIN 2021-08-11 10:42:00 [facility] BLOOD GAS, VENOUS 2021-08-11 10:42:00 Reardon, [facility] KETONE, BLOOD 2021-08-11 10:42:00 Reardon, [facility] LACTIC ACID, VENOUS 2021-08-11 10:42:00 Reardon, [facility] REPORT OF PROCEDURE - 2021-07-28 10:50:45 Seth Denise [facility] CBC W/PLT COUNT & AUTO 2021-07-26 12:55:00 Israel [facility] ALPHA FETOPROTEIN (AFP), 2021-07-26 12:55:00 [place] [facility] TUMOR MARKER [facility] BILIRUBIN, DIRECT 2021-07-26 12:55:00 Israel [facility] CBC W/PLT COUNT & AUTO 2021-07-26 12:55:00 [place] [facility] COMPREHENSIVE METABOLIC 2021-07-26 12:55:00 [place] [facility] PROTHROMBIN TIME/INR 2021-07-26 12:55:00 [place] [facility] MR ABDOMEN WITH & WITHOUT 2021-07-26 09:37:00 Kyle Alexis Critical access hospital CONTRAST [facility] POCT-GLUCOSE METER 2021-07-19 10:20:00 Seth Denise [facility] REPORT OF PROCEDURE - 2021-07-19 10:08:36 Seth Denise [facility] TISSUE EXAM 2021-07-19 09:52:00 Seth Denise [facility] UPPER ENDOSCOPY,BIOPSY 2021-07-19 09:30:00 Jawaid, Salmaan [facility] POCT-GLUCOSE METER 2021-07-19 08:22:00 Seth Denise Cesar [facility] BASIC METABOLIC PANEL (7) 2021-07-19 08:16:00 Price Diaz [facility] CBC W/PLT COUNT & AUTO 2021-06-23 12:10:00 Gissel Goff [facility] CBC W/PLT COUNT & AUTO 2021-06-23 12:10:00 Gissel Goff [facility] BASIC METABOLIC PANEL (7) 2021-06-23 12:10:00 Gissel Goff [facility] HEPATIC FUNCTION PANEL 2021-06-23 12:10:00 Gissel Goff [facility] GAMMA GLUTAMYL TRANSFERASE 2021-06-23 12:10:[address] [facility] (GGT) [facility] MAGNESIUM 2021-06-23 12:10:[address] [facility] PHOSPHORUS 2021-06-23 12:10:[address] [facility] PROTHROMBIN TIME/INR 2021-06-23 12:10:00 Gissel Goff [facility] CBC W/PLT COUNT & AUTO 2021-06-13 11:35:00 [facility]bles [facility] BILIRUBIN, DIRECT 2021-06-13 11:35:[address] [facility] CBC W/PLT COUNT & AUTO 2021-06-13 11:35:00 Pebbles Pacheco [facility] COMPREHENSIVE METABOLIC 2021-06-13 11:35:00 Tara Pebbles allen [facility] PROTHROMBIN TIME/INR 2021-06-13 11:35:00 Pebbles Pacheco [facility] ZINC 2021-04-26 11:44:[address] [facility] POCT-GLUCOSE METER 2021-04-13 07:34:00 YehudaLynn rios [facility] ECG 12-LEAD 2021-04-13 05:51:08 BettencourtHenok bassett [facility] ECG 12-LEAD 2021-04-13 05:51:08 Unknown, Hl7 Doctor [facility] POCT-GLUCOSE METER 2021-04-12 21:54:00 [facility] PO[facility]UCOSE METER 2021-04-12 17:08:00 [facility] L CATH & PCI 2021-04-12 13:34:00 ElsyJeramy [facility] POCT-GLUCOSE METER 2021-04-12 11:34:00 [facility] POCT-GLUCOSE METER 2021-04-12 07:20:00 [facility] CBC W/PLT COUNT & AUTO 2021-04-12 07:00:00 Sg [facility] BASIC METABOLIC PANEL (7) 2021-04-12 07:00:00 Henok Bettencourt ea [facility] MAGNESIUM 2021-04-12 07:00:00 Henok Bettencourt [facility] CBC W/PLT COUNT & AUTO 2021-04-12 07:00:00 Henok Bettencourt [facility] PROTHROMBIN TIME/INR 2021-04-12 07:00:00 Sg Henok Lea [facility] HIGH SENSITIVITY TROPONIN 2021-04-12 07:00:00 Sg Henok L ea [facility] ECG 12-LEAD 2021-04-12 06:02:48 Sg Henok Lea [facility] ECG 12-LEAD 2021-04-12 06:02:48 Unknown, Hl7 Doctor [facility] POCT-GLUCOSE METER 2021-04-11 21:30:00 [facility] ECHO W CONTRAST & DOPPLER 2021-04-11 18:08:52 Henok Bettencourt ea [facility] POCT-GLUCOSE METER 2021-04-11 17:05:00 [facility] POCT-GLUCOSE METER 2021-04-11 12:14:00 [facility] POCT-GLUCOSE METER 2021-04-11 07:55:00 [facility] CBC W/PLT COUNT & AUTO 2021-04-11 06:14:00 [facility] BASIC METABOLIC PANEL (7) 2021-04-11 06:14:00 Henok Bettencourt ea [facility] MAGNESIUM 2021-04-11 06:14:00 BettencourtHenok bassett [facility] CBC W/PLT COUNT & AUTO 2021-04-11 06:14:00 Henok Bettencourt [facility] PROTHROMBIN TIME/INR 2021-04-11 06:14:00 Henok Bettencourt [facility] HIGH SENSITIVITY TROPONIN 2021-04-11 06:14:00 Henok Bettencourt ea [facility] HEPATIC FUNCTION PANEL 2021-04-11 06:14:00 Nahomi Recinos [facility] ECG 12-LEAD 2021-04-11 06:05:38 BettencourtHenok bassett [facility] ECG 12-LEAD 2021-04-11 06:05:38 Unknown, Hl7 [facility] POCT-GLUCOSE METER 2021-04-10 21:13:00 [facility] 12-LEAD 2021-04-10 07:56:35 Bettencourt, Henok Lea [facility] ECG 12-LEAD 2021-04-10 07:56:35 Unknown, Hl7 Doctor [facility] CBC W/PLT COUNT & AUTO 2021-04-10 07:20:00 Henok Bettencourt [facility] (CELLAVISION MANUAL DIFF) 2021-04-10 07:20:00 BettencourtHenok bassett ea [facility] HEPATIC FUNCTION PANEL 2021-04-10 07:20:00 BettencourtHenok [facility] BASIC METABOLIC PANEL (7) 2021-04-10 07:20:00 BettencourtHenok ea [facility] MAGNESIUM 2021-04-10 07:20:00 BettencourtHenok [facility] CBC W/PLT COUNT & AUTO 2021-04-10 07:20:00 Henok Bettencourt [facility] PROTHROMBIN TIME/INR 2021-04-10 07:20:00 Henok Bettencourt [facility] HIGH SENSITIVITY TROPONIN 2021-04-10 07:20:00 Henok Bettencourt ea [facility] CREATINE KINASE (CK) 2021-04-10 07:20:00 Henok Bettencourt [facility] POCT-GLUCOSE METER 2021-04-09 21:37:00 Palmerny [facility] VENOUS DOPPLER LEGS 2021-04-09 19:30:00 Nahomi Recinos [facility] POCT-GLUCOSE METER 2021-04-09 17:10:00 Gadchaim [facility] CBC W/PLT COUNT & AUTO 2021-04-09 14:08:00 Nahomi Recinos CH [facility] COMPREHENSIVE METABOLIC 2021-04-09 14:08:00 Nahomi Recinos [facility] PROTHROMBIN TIME/INR 2021-04-09 14:08:00 Nahomi Recinos [facility] CBC W/PLT COUNT & AUTO 2021-04-09 14:08:00 Nahomi Recinos CH I [facility] POCT-GLUCOSE METER 2021-04-09 12:12:00 Daksha [facility] POCT-GLUCOSE METER 2021-04-09 07:24:00 Jackieerny [facility] POCT-GLUCOSE METER 2021-04-08 22:33:00 [facility] POCT-GLUCOSE METER 2021-04-08 16:21:00 [facility] LACTIC ACID, VENOUS 2021-04-08 15:40:00 Henok Bettencourt [facility] BLOOD CULTURE 2021-04-08 15:39:00 Henok Bettencourt [facility] POCT-GLUCOSE METER 2021-04-08 14:26:00 [facility] POCT-GLUCOSE METER 2021-04-08 10:47:00 [facility] HIGH SENSITIVITY TROPONIN 2021-04-08 10:47:00 Solitario Sauceda [facility] MAGNESIUM 2021-04-08 10:47:00 Juan Rodgers [facility] POCT-GLUCOSE METER 2021-04-08 07:17:00 [facility] HIGH SENSITIVITY TROPONIN 2021-04-08 06:16:00 Solitario Sauceda [facility] CBC W/PLT COUNT & AUTO 2021-04-08 02:51:00 Solitario Sauceda [facility] HIGH SENSITIVITY TROPONIN 2021-04-08 02:51:00 Solitario Sauceda [facility] TSH/FREE T4 IF INDICATED 2021-04-08 02:51:00 Henok Bettencourt [facility] HEMOGLOBIN A1C 2021-04-08 02:51:00 Henok Bettencourt [facility] PROTHROMBIN TIME/INR 2021-04-08 02:51:00 Henok Bettencourt CH [facility] LIPID PANEL 2021-04-08 02:51:00 Henok Bettencourt [facility] BASIC METABOLIC PANEL (7) 2021-04-08 02:51:00 Solitario Sauceda [facility] MAGNESIUM 2021-04-08 02:51:[address] [facility] CBC W/PLT COUNT & AUTO 2021-04-08 02:51:00 Solitario Sauceda [facility] HIGH SENSITIVITY TROPONIN 2021-04-07 20:21:00 Henok Bettencourt ea [facility] CBC (HEMOGRAM ONLY) 2021-04-07 20:21:00 Solitario Sauceda [facility] POCT-GLUCOSE METER 2021-04-07 20:08:00 [facility] LIMITED 2D ECHOCARDIOGRAM 2021-04-07 17:27:46 Henok Bettencourt ea [facility] CT CHEST FOR PULMONARY 2021-04-07 16:50:00 Adriane [facility] EMBOLUS [facility] CT ABDOMEN/PELVIS WITH IV 2021-04-07 16:50:00 Wale Forrest [facility] CONT WAVE PULSED DOPPLER 2021-04-07 16:26:40 Henok Bettencourt [facility] ECG 12-LEAD 2021-04-07 15:47:50 Adriane [facility] Carlie [facility] ECG 12-LEAD 2021-04-07 15:47:50 Unknown, Hl7 Doctor [facility] CBC W/PLT COUNT & AUTO 2021-04-07 14:38:00 Adriane [facility] SARS-COV2/RT-PCR ([facility] & 2021-04-07 14:38:00 Aquiles [facility] BASIC METABOLIC PANEL (7) 2021-04-07 14:38:00 Wale Forrest [facility] CBC W/PLT COUNT & AUTO 2021-04-07 14:38:00 Adriane [facility] HIGH SENSITIVITY TROPONIN 2021-04-07 14:38:00 Wale Forrest [facility] LIPASE 2021-04-07 14:38:00 Adriane [facility] PT/APTT 2021-04-07 14:38:00 Adriane [facility] B-TYPE NATRIURETIC FACTOR 2021-04-07 14:38:[address] [facility] (BNP) [facility] D-DIMER 2021-04-07 14:38:00 Adriane [facility] COMPREHENSIVE METABOLIC 2021-04-07 14:38:00 Solitario Sauceda as [facility] XR CHEST 1 VIEW PORTABLE / 2021-04-07 11:55:00 [facility] 2021-04-07 11:37:28 Adriane [facility] ECG 12-LEAD 2021-04-07 11:05:30 Forrest, [facility] ECG 12-LEAD 2021-04-07 11:05:30 Unknown, Hl7 Doctor [facility] CARDIAC CATH REPORT - SCAN 2021-04-07 00:00:00 Provider, Default [facility] REPORT OF PROCEDURE - 2021-04-07 00:00:00 Provider, Default [facility] ENDOSCOPY SCAN [facility] 2D ECHO W/ DOPPLER 2021-04-05 09:32:[address] [facility] (CW/PW/COLOR) [facility] CBC W/PLT COUNT & AUTO 2021-03-28 11:28:00 Alice Petersen Aba [facility] CBC W/PLT COUNT & AUTO 2021-03-28 11:28:00 Alice Petersen Aba [facility] BASIC METABOLIC PANEL (7) 2021-03-28 11:28:00 Alice Petersen Aba [facility] MAGNESIUM 2021-03-28 11:28:[address] [facility] PHOSPHORUS 2021-03-28 11:28:00 Alice Petersen Ab[facility] PROTHROMBIN TIME/INR 2021-03-28 11:28:00 Alice Petersen Aba [facility] HEPATIC FUNCTION PANEL 2021-03-28 11:28:00 Alice Petersen Aba [facility] GAMMA GLUTAMYL TRANSFERASE 2021-03-28 11:28:[address] [facility] (GGT) [facility] POCT-GLUCOSE METER 2021-03-22 11:08:00 Fred Mcbride Reshad [facility] [place] POCT-GLUCOSE METER 2021-03-22 07:35:00 Fred Mcbride Reshad [facility] [place] AMYLASE PERITONEAL FLUID 2021-03-22 06:35:00 Ginette Hamilton [facility] CBC W/PLT COUNT & AUTO 2021-03-22 04:07:00 Kenia Cordova [facility] CBC W/PLT COUNT & AUTO 2021-03-22 04:07:00 Kenia Cordova [facility] BASIC METABOLIC PANEL (7) 2021-03-22 04:07:00 Kenia Cordova [facility] MAGNESIUM 2021-03-22 04:07:00 Kenia Cordova [facility] HEPATIC FUNCTION PANEL 2021-03-22 04:07:[address] [facility] PHOSPHORUS 2021-03-22 04:07:00 Kenia Cordova [facility] PROTHROMBIN TIME/INR 2021-03-22 04:07:00 Ginette Hamilton [facility] POCT-GLUCOSE METER 2021-03-21 20:55:00 Fred Mcbride Reshad [facility] [place] [place] POCT-GLUCOSE METER 2021-03-21 16:07:00 Fred Mcbride Reshad [facility] POCT-GLUCOSE METER 2021-03-21 11:24:00 Fred Mcbride Reshad [facility] MISCELLANEOUS LAB ORDER 2021-03-21 10:22:00 Ginette Hamilton [facility] POCT-GLUCOSE METER 2021-03-21 07:11:00 Fred Mcbride Reshad CH [facility] CBC W/PLT COUNT & AUTO 2021-03-21 04:02:00 Kenia Cordova [facility] CBC W/PLT COUNT & AUTO 2021-03-21 04:02:00 Kenia Cordova [facility] BASIC METABOLIC PANEL (7) 2021-03-21 04:02:00 Kenia Cordova [facility] MAGNESIUM 2021-03-21 04:02:00 Kenia Cordova [facility] HEPATIC FUNCTION PANEL 2021-03-21 04:02:[address] [facility] PHOSPHORUS 2021-03-21 04:02:00 Kenia Cordova [facility] PROTHROMBIN TIME/INR 2021-03-21 04:02:00 Ginette Hamilton [facility] POCT-GLUCOSE METER 2021-03-20 21:46:00 Fred Mcbride Reshad [facility] [place] [place] POCT-GLUCOSE METER 2021-03-20 16:18:00 Fred Mcbride Reshad [facility] [place] CT ABDOMEN/PELVIS WITH IV 2021-03-20 14:41:00 Haile [facility] POCT-GLUCOSE METER 2021-03-20 10:36:00 Fred Mcbrided [facility] [place] US ABDOMEN LIMITED 2021-03-20 09:54:00 Darwin Rocha [facility] POCT-GLUCOSE METER 2021-03-20 07:01:00 Fred Mcbrided [facility] [place] CBC W/PLT COUNT & AUTO 2021-03-20 04:48:00 Kenia Cordova [facility] CBC W/PLT COUNT & AUTO 2021-03-20 04:48:00 Marycarmen [facility] BASIC METABOLIC PANEL (7) 2021-03-20 04:48:00 Kenia Cordova [facility] MAGNESIUM 2021-03-20 04:48:00 Kenia Cordova [facility] HEPATIC FUNCTION PANEL 2021-03-20 04:48:[address] [facility] PHOSPHORUS 2021-03-20 04:48:00 Tasha [facility] PROTHROMBIN TIME/INR 2021-03-20 04:48:00 Ginette Hamilton [facility] POCT-GLUCOSE METER 2021-03-19 21:54:00 Fred Mcbrided [facility] [place] POCT-GLUCOSE METER 2021-03-19 16:01:00 Fred Mcbrided [facility] [place] POCT-GLUCOSE METER 2021-03-19 10:44:00 Fred Mcbride Reshad [facility] [place] POCT-GLUCOSE METER 2021-03-19 07:10:00 Fred Mcbride Reshad [facility] [place] CBC W/PLT COUNT & AUTO 2021-03-19 04:34:00 Kenia Cordova [facility] CBC W/PLT COUNT & AUTO 2021-03-19 04:34:00 Kenia Cordova [facility] BASIC METABOLIC PANEL (7) 2021-03-19 04:34:00 Kenia Cordova [facility] MAGNESIUM 2021-03-19 04:34:00 Kenia Cordova [facility] HEPATIC FUNCTION PANEL 2021-03-19 04:34:[address] [facility] PHOSPHORUS 2021-03-19 04:34:00 Kenia Cordova [facility] PROTHROMBIN TIME/INR 2021-03-19 04:34:00 [facility] POCT-GLUCOSE METER 2021-03-19 00:03:00 Fred Mcbride Reshad CH [facility] POCT-GLUCOSE METER 2021-03-18 11:23:00 Fred Mcbride Reshad CH [facility] POCT-GLUCOSE METER 2021-03-18 08:18:00 Fred Mcbride Reshad CH [facility] CBC W/PLT COUNT & AUTO 2021-03-18 05:49:00 Kenia Cordova [facility] VANCOMYCIN LEVEL, TROUGH 2021-03-18 05:49:00 Kenai Cordova CH [facility] CBC W/PLT COUNT & AUTO 2021-03-18 05:49:00 Kenia Cordova [facility] PROTHROMBIN TIME/INR 2021-03-18 05:49:00 [facility] BASIC METABOLIC PANEL (7) 2021-03-18 05:48:00 Kenia Cordova [facility] MAGNESIUM 2021-03-18 05:48:00 Zahorik, Kenia [facility] HEPATIC FUNCTION PANEL 2021-03-18 05:48:[address] [facility] PHOSPHORUS 2021-03-18 05:48:00 Kenia Cordova [facility] POCT-GLUCOSE METER 2021-03-18 00:12:00 Fred Mcbride Reshad [facility] POCT-GLUCOSE METER 2021-03-17 16:53:00 Fred Mcbrided [facility] URINE CULTURE 2021-03-17 14:20:[address] [facility] URINALYSIS W/ REFLEX URINE 2021-03-17 14:20:00 Scott Grant [facility] HEMOGLOBIN AND HEMATOCRIT 2021-03-17 11:54:00 Mary Voss on [facility] POCT-GLUCOSE METER 2021-03-17 11:48:00 Fred Mcbride Reshad [facility] POCT-GLUCOSE METER 2021-03-17 08:04:00 Alice Petersen Aba [facility] CBC W/PLT COUNT & AUTO 2021-03-17 03:38:00 Tasha Kenia [facility] CBC W/PLT COUNT & AUTO 2021-03-17 03:38:00 Tasha Kenia [facility] BASIC METABOLIC PANEL (7) 2021-03-17 03:38:00 Kenia Cordova [facility] MAGNESIUM 2021-03-17 03:38:00 Tasha Kenia [facility] HEPATIC FUNCTION PANEL 2021-03-17 03:38:[address] [facility] PHOSPHORUS 2021-03-17 03:38:00 Tasha Kenia [facility] POCT-GLUCOSE METER 2021-03-16 23:44:00 Alice Petersen Abaer [facility] [place] POCT-GLUCOSE METER 2021-03-16 18:12:00 Alice Petersen Abaer [facility] [place] ECG 12-LEAD 2021-03-16 13:25:34 Henok Bettencourt Allison [facility] ECG 12-LEAD 2021-03-16 13:25:34 Unknown, Hl7 Doctor [facility] POCT-GLUCOSE METER 2021-03-16 11:37:00 Alice Petersen Abaer [facility] CBC W/PLT COUNT & AUTO 2021-03-16 03:34:00 Leoncio [facility] CBC W/PLT COUNT & AUTO 2021-03-16 03:34:00 [facility] PROTHROMBIN TIME/INR 2021-03-16 03:34:00 Leoncio [facility] BASIC METABOLIC PANEL (7) 2021-03-16 03:34:00 Leoncio [facility] HEPATIC FUNCTION PANEL 2021-03-16 03:34:00 [facility] MAGNESIUM 2021-03-16 03:34:00 Leoncio [facility] PHOSPHORUS 2021-03-16 03:34:00 [facility] POCT-GLUCOSE METER 2021-03-15 23:59:00 Alice Petersen Abaer [facility] POCT-GLUCOSE METER 2021-03-15 16:37:00 Alice Petersen Abaer [facility] BASIC METABOLIC PANEL (7) 2021-03-15 13:14:00 Leoncio [facility] HEPATIC FUNCTION PANEL 2021-03-15 13:14:00 Leoncio [facility] MAGNESIUM 2021-03-15 13:14:00 Aaron Chavarria [facility] PHOSPHORUS 2021-03-15 13:14:00 Aaron Chavarriaomela [facility] CBC W/PLT COUNT & AUTO 2021-03-15 13:11:00 Leoncio [facility] DIFFERENTIAL [facility] CBC W/PLT COUNT & AUTO 2021-03-15 13:11:00 Leoncio [facility] PROTHROMBIN TIME/INR 2021-03-15 13:11:00 [facility] PREPARE LEUKO-REDUCED RBC 2021-03-15 12:57:00 Mark Reece [facility] [place] FUNGUS CULTURE + SMEAR 2021-03-15 11:36:09 Alice Petersen Aba [facility] SURGICALLY OBTAINED 2021-03-15 11:36:09 Alice Petersen Aba [facility] - CULTURE + GRAM STAIN Medical Beryl ter ANAEROBIC CULTURE 2021-03-15 11:36:09 Alice Petersen Aba [facility] RRL CRITICAL LABS 2021-03-15 11:29:36 [facility] (ABG,NA,K,H&H,GLUCOSE) Medical C enter BLOOD GAS, ARTERIAL 2021-03-15 11:29:36 [facility] 2021-03-15 11:29:36 [facility]OT[facility] 2021-03-15 11:29:36 [facility] GLU[facility]SE-[facility] 2021-03-15 11:29:36 [facility]GB/[facility]CT (H&H) - STAT LAB 2021-03-15 11:29:36 [facility] HEMOGLOBIN-STAT LAB 2021-03-15 11:29:36 [facility] HEMATOCRIT-STAT LAB 2021-03-15 11:29:36 [facility] CALCIUM, IONIZED 2021-03-15 11:29:36 [facility] TISSUE EXAM 2021-03-15 11:24:00 Alice Petersen Aba [facility] RRL CRITICAL LABS 2021-03-15 08:22:26 [facility] (ABG,NA,K,H&H,GLUCOSE) [facility] C enter CALCIUM, IONIZED 2021-03-15 08:22:26 Forrest [facility] BLOOD GAS, ARTERIAL 2021-03-15 08:22:26 Forrest, [facility] SODIUM NA-STAT LAB 2021-03-15 08:22:26 [facility] POTASSIUM-STAT LAB 2021-03-15 08:22:26 Forrest [facility] GLUCOSE-STAT LAB 2021-03-15 08:22:26 Forrest [facility] HGB/HCT (H&H) - STAT LAB 2021-03-15 08:22:26 Forrest [facility] TYPE AND SCREEN, AUTOMATED 2021-03-15 08:20:00 Mark Reece [facility] CHOLECYSTECTOMY 2021-03-15 07:08:00 Alice Petersen Aba [facility] POCT-GLUCOSE METER 2021-03-15 06:08:00 Alice Petersen Aba [facility] URINALYSIS W/ REFLEX URINE 2021-02-28 10:57:00 [facility] CBC W/PLT COUNT & AUTO 2021-02-22 12:15:00 Kyle Alexis CH [facility] ALPHA FETOPROTEIN (AFP), 2021-02-22 12:15:00 [facility] TUMOR MARKER [facility] BILIRUBIN, DIRECT 2021-02-22 12:15:00 [facility] W/[facility]T COUNT & AUTO 2021-02-22 12:15:00 Kyle Alexis CH, I [facility] COMPREHENSIVE METABOLIC 2021-02-22 12:15:00 Kyle Alexis [facility] PROTHROMBIN TIME/INR 2021-02-22 12:15:00 Kyle Alexis [facility] REPORT OF PROCEDURE - 2021-02-08 15:58:04 Seth Denise [facility] TISSUE EXAM 2021-02-08 15:48:00 Seth Denise [facility] UPPER ENDOSCOPY,BIOPSY 2021-02-08 15:30:00 Thais Denisetnrosy [facility] UPPER ENDOSCOPY,BANDING 2021-02-08 15:30:00 [facility] POCT-GLUCOSE METER 2021-02-08 14:03:00 Camelia [facility] Gorgerosy [facility] MR ABDOMEN WITH & WITHOUT 2021-01-04 14:30:00 Kyle Alexis [facility] CBC W/PLT COUNT & AUTO 2021-01-04 12:50:00 Kyle Alexis [facility] BILIRUBIN, DIRECT 2021-01-04 12:50:00 Kyle Alexis [facility] CBC W/PLT COUNT & AUTO 2021-01-04 12:50:00 Kyle Alexis CH, I [facility] COMPREHENSIVE METABOLIC 2021-01-04 12:50:00 Kyle Alexis [facility] PROTHROMBIN TIME/INR 2021-01-04 12:50:00 Kyle Alexis [facility] HEPATITIS B PCR, 2021-01-04 12:50:00 Kyle Alexis [facility] REPORT OF PROCEDURE - 2020-11-26 14:40:23 Seth Denise [facility] REPORT OF PROCEDURE - 2020-11-26 14:39:56 Seth Denise [facility] - ENDOSCOPY [facility] TISSUE EXAM 2020-10-22 14:33:00 Seth Denise [facility] [place] ERCP 2020-10-22 14:30:00 Thais Denisetnrosy Guerrero [facility] UPPER ENDOSCOPY 2020-10-22 13:36:00 [facility] Gu[facility]ro [facility] COLONOSCOPY,POLYPECTOMY 2020-10-22 13:36:00 [facility] valley[facility]aistnrosy ManjarrezResnick [facility] ERCP,BALLOON SWEEPING 2020-10-22 13:36:00 [facility] PROCEDURE W/ C-ARM 2020-10-22 13:36:00 [facility] POCT-GLUCOSE METER 2020-10-22 11:53:00 [facility] Plan of Care Planned Activity Planned Date Details Comments Source Future Scheduled 2030-10-22 Screening for [facility] es - Test 00:00:00 malignant neoplasm Medical C enter of colon (procedure) [code = 860873131] Future Scheduled 2021-12-05 Hemoglobin A1c [facility] kes - Test 00:00:00 [facility] (procedure) [code = 15203821] Future Scheduled 2021-12-02 COVID-19 Vaccine (3 [employer] Test 23:30:51 - Booster for Pfizer of Medi cine series) [code = COVID-19 Vaccine (3 - Booster for Pfizer series)] Future Scheduled 2021-12-02 FLU VACCINE > [address] [facility] C ollege Test 23:30:51 MONTHS [code = FLU of Medici ne VACCINE > 6 MONTHS] Future Scheduled 2021-12-[address] [facility] Test 23:30:51 measurement of Medicine (procedure) [code = 71306348] Future Scheduled 2021-12-02 FALL SCREEN [code = [employer] Test 23:30:51 FALL SCREEN] of Medicine Future Scheduled 2021-12-[address] [facility] Col [facility]ge Test 23:30:51 malignant neoplasm of Medici ne of colon (procedure) [code = 197430018] Future Scheduled 2021-12-02 TETANUS SHOT (ADULT) [place] [employer] Test 23:30:51 [code = TETANUS SHOT of Medi cine (ADULT)] Future Scheduled 2021-12-[address] [facility] Test 23:30:51 examination of Medicine (regime/therapy) [code = 462048789] Future Scheduled 2021-12-[address] [facility] Test 23:30:51 RETINOPATHY of Medicine SCREENING [code = ANNUAL DIABETIC RETINOPATHY SCREENING] Future Scheduled 2021-12-02 BMI FOLLOW UP PLAN [employer] Test 23:30:51 [code = BMI FOLLOW of Medici ne UP PLAN] Future Scheduled 2021-12-02 ZOSTER VACCINE (1 of [place] [employer] Test 23:30:51 2) [code = ZOSTER of Medicin e VACCINE (1 of 2)] Future Scheduled 2021-12-[address] [facility] Jerrell ege Test 23:30:51 (Initial) [code = of Medicin e MEDICARE AWV (Initial)] Future Scheduled 2021-12-02 Pneumococcal 65+ (1 [employer] Test 23:30:51 of 1 - PPSV23) [code of Medi cine = Pneumococcal 65+ (1 of 1 - PPSV23)] Future Scheduled 2021-12-02 HEMOGLOBIN A1C [code Ordered: [place] [employer] Test 14:13:43 = 4548-4] 12/02/2021 of Medicine Future Scheduled 2021-12-02 LIPID PANEL [code = Ordered: [employer] Test 14:13:43 85865-3] 12/02/2021 of Medicine Future Scheduled 2021-12-02 EEG AWAKE OR DROWSY Ordered: [employer] Test 14:09:36 ROUTINE [code = 12/02/2021 of Medicine NOCPT] Future Scheduled 2021-09-[address] [facility] - Test 00:00:00 (12+) [code = Medical Center DEPRESSION SCREENING (12+)] Future Scheduled 2021-05-[address] [facility] - Test 00:00:00 (#1) [code = Medical Center INFLUENZA VACCINE (#1)] Future Scheduled 2020-11-28 COVID-19 VACCINE ([address] [facility] - Test 00:00:00 - Pfizer risk 4-dose Medical Center series) [code = COVID-19 VACCINE (3 - Pfizer risk 4-dose series)] Future Scheduled 2018-01-[address] [facility] - Test 00:00:00 WELLNESS (YEAR 2 or Medical Center FIRST YEAR if no IPPE) [code = MEDICARE ANNUAL WELLNESS (YEAR 2 or FIRST YEAR if no IPPE)] Future Scheduled 2017-01-19 PNEUMOCOCCAL 65+ YRS [facility] - Test 00:00:00 (1 of 1 - Medical Center [id number] PCV13) [code = PNEUMOCOCCAL 65+ YRS (1 of 1 - [id number] PCV13)] Future Scheduled 2002-01-19 SHINGLES VACCINES ([address] [facility] - Test 00:00:00 of 2) [code = Medical Center SHINGLES VACCINES (1 of 2)] Future Scheduled 1971-01-19 DTAP/TDAP/TD [facility] Test 00:[facility]00 VACCINES (1 - Tdap) Medical Center [code = DTAP/TDAP/TD VACCINES (1 - Tdap)] Future Scheduled 1964 COVID-19 Vaccination [facility] Test 00:00:00 (1) [code = COVID-19 Vaccination (1)] Future Scheduled 1962-01-19 DIABETIC EYE EXAM [facility] - Test 00:00:00 [code = DIABETIC EYE Medical Center EXAM] Future Scheduled 1962-01-[address] [facility] - Test 00:00:00 examination Medical Center (regime/therapy) [code = 930710751] Future Scheduled 1962-01-19 Urine screening for [facility] - Test 00:00:00 protein (procedure) Medical Center [code = 435209896] Future Scheduled COLON CANCER [facility] Test SCREENING: of Medicine COLONOSCOPY [code = COLON CANCER SCREENING: COLONOSCOPY] Future Scheduled TETANUS SHOT (ADULT) [place] [employer] Test [code = TETANUS SHOT of Medi cine (ADULT)] Future Scheduled Diabetic foot [facility] Test examination of Medicine (regime/therapy) [code = 378766953] Future Scheduled ANNUAL DIABETIC [facility] C [facility] Test RETINOPATHY of Medicine SCREENING [code = ANNUAL DIABETIC RETINOPATHY SCREENING] Future Scheduled BMI FOLLOW UP PLAN [facility] Test [code = BMI FOLLOW of Medici ne UP PLAN] Future Scheduled ZOSTER VACCINE (1 of [place] [employer] Test 2) [code = ZOSTER of Medicin e VACCINE (1 of 2)] Future Scheduled FALL SCREEN [code = [employer] FALL SCREEN] of Medicine Future Scheduled PNEUMOVAX >=[address] [facility] Test (PPSV23) [code = of Medicine PNEUMOVAX >=65 (PPSV23)] Future Scheduled MEDICARE IPPE [facility] Test (WELCOME TO of Medicine MEDICARE) [code = MEDICARE IPPE (WELCOME TO MEDICARE)] Future Scheduled A1C TESTING EVERY 6 [employer] Test MONTHS [code = A1C of Medici ne TESTING EVERY 6 MONTHS] Encounters Start End Encounter Admission Attending Care Care Encounter Source Date/Time Date/Time Type Type Clinicians Facility Department ID 2021-10-20 Outpatient [id number] Memoria 22:02:48 [id number] 2021-10-10 Inpatient ER JOSE, [facility] Emergency [id number] SLE 12:45:00 GALINA 2021-06-19 Inpatient RANA, ABBAS [facility] Surgery [id number] [facility] 03:14:20 2021-06-19 Inpatient RANA, ABBAS [facility] Surgery [id number] [facility]H 02:31:01 2021-06-18 Outpatient JAWAID, [facility] Surgery [id number] SLE 16:42:45 SALKSAN 2021-06-18 Outpatient JAWAID, [facility] Surgery [id number] SLEH 00:22:16 SALMAAN 2021-06-16 Outpatient EL ELSY, [facility] Surgery [id number] SLE 10:29:18 JERAMY 2021-06-15 Outpatient JAWAID, [facility] Surgery [id number] SLE 10:50:56 SALMAAN 2021-06-15 Inpatient ER YASMEEN, [facility] Surgery [id number] SLEH 08:26:11 GUILLE 2021-12-06 2021-12-06 Outpatient MAURI ROBERTSON [facility] [id number] [facility] 07:28:56 09:37:09 LINETTE ramirez of Medicin e 2021-12-02 2021-12-02 Office MAURI ALBA [id number] [facility] 12:34:00 14:11:54 Visit RAYNA AMBULATOR [id number] College Y [id number] of [id number] Medi heather 800 e 2021-10-26 2021-10-26 Inpatient ER [facility], [facility] Emergency [id number] [facility] 15:01:00 15:01:00 DYLANFLELSA 2021-10-10 2021-10-20 Hospital ER Rios-Cruzito Kaminski [facility] [id number] 12:45:00 18:21:00 Encounter Vahe Larios, [facility] Moise, [facility] Galina Garcia 2021-10-10 2021-10-10 Outpatient [facility] [id number] [facility] 00:00:00 23:59:00 Sandra kahn of Medicin e 2021-10-10 2021-10-10 Orders [facility] [id number] 00:00:00 00:00:00 Only [facility] 2021-10-10 2021-10-10 Travel [facility] [id number] [facility] 00:00:00 [facility] 2021-10-10 2021-10-10 Telephone Osmin [facility] [id number] 00:00:00 00:00:00 Jim Gillette [facility] 2021-09-29 2021-09-29 Documentat Rolf [facility] [id number] 00:00:00 00:00:00 ion Antonalexquinton [facility] 2021-09-27 2021-09-27 Office Elsy [facility] [id number] 11:15:00 11:30:00 Visit Jeramy [facility] 2021-09-21 2021-09-21 Abstract Diogo [facility] [id number] 00:00:00 00:00:00 [facility] 2021-09-19 2021-09-19 Documentat Viktor [facility] [id number] 00:[facility]:00 00:00:00 ion [facility] 2021-09-16 2021-09-16 Telephone Radha, [facility] [id number] 00:00[facility]00 00:00:00 [facility] 2021-09-15 2021-09-15 [facility] Vanesa, [facility] [id number] 10:30:21 23:59:00 Encounter [facility] 2021-09-15 2021-09-15 Office DIANA Voss [facility] [id number] 08:04:36 08:34:36 Visit [facility] 2021-09-15 2021-09-15 Office Alice Petersen Aba [facility] [id number] 08:04:46 08:19:46 Visit Gissel Goff [facility] 2021-09-15 2021-09-15 [facility] [id number] [address] 00:00:00 00:00:00 [facility] 2021-09-15 2021-09-15 Telephone Radha [facility] [id number] 00:00:00 00:00:00 [facility] 2021-09-15 2021-09-15 Telephone Cal [facility] [id number] [facility] 2021-09-14 2021-09-14 Telephone Diogo [facility] [id number] 00:00:00 00:00:00 [facility] 2021-09-12 2021-09-12 Telephone Farzad [facility] [id number] 00:00:00 00:00:00 [facility] 2021-09-12 2021-09-12 Telephone Viktor [facility] [id number] 00:00:00 00:00:00 [facility] 2021-09-06 2021-09-08 Inpatient ER ALINE, [facility] Emergency [id number] SLE 12:06:00 14:00:00 [facility] 2021-09-06 2021-09-08 Hospital ER Sunita Gale [facility] [id number] 12:06:00 14:00:00 Encounter Deedee Funez [facility] 2021-09-06 2021-09-06 Outpatient [facility] [id number] [facility] 00:00:00 23:59:00 [facility] 2021-09-06 2021-09-06 Travel [facility] [id number] [facility] St 00:00:00 00:00:00 [facility] 2021-09-05 2021-09-05 Refill Sg [facility] [id number] [facility] St 00:00:00 00:00:00 Henok [facility] 2021-08-29 2021-08-29 Office DIANA Nicola Alice Ruiz [place] [facility] [id number] [facility] St 07:31:47 07:46:47 Visit Gissel Goff [facility] 2021-08-29 2021-08-29 Outpatient DIANA GOFF [facility] [id number] SLE 07:31:47 07:31:47 GISSEL 2021-08-29 2021-08-29 Telephone Angely [facility] [id number] 00:00:00 00:00:00 Rosalina kenroy [facility] 2021-08-26 2021-08-26 Outpatient DIANA GOFF [facility] [id number] SLE 12:09:37 23:59:00 GISSEL 2021-08-26 2021-08-26 [facility] [id number] 12:09:37 23:59:00 Encounter [facility] 2021-08-23 2021-08-23 Telephone Viktor [facility] [id number] 00:00:00 00:00:00 [facility] 2021-08-23 2021-08-23 Outside Goff [facility] [id number] 00:00:00 00:00:00 Orders [facility] 2021-08-22 2021-08-22 [facility] [id number] 00:00:00 00:00:00 Only [facility] 2021-08-22 2021-08-22 Telephone Viktor [facility] [id number] 00:00:00 00:00:00 [facility] 2021-08-17 2021-08-17 Documentat Radha [facility] [id number] [facility] 00:[facility]:00 00:00:00 ion Kelsie [facility] 2021-08-11 2021-08-16 Inpatient ER SONIA FANG Emergency [id number] SLE 09:49:00 19:42:00 [place] 2021-08-11 2021-08-16 Hospital ER Ron Reardon [facility] [id number] 09:49:00 19:42:00 Encounter Anita Ely [facility] 2021-08-16 2021-08-16 Abstract Diogo [facility] [id number] 00:00:00 00:00:00 [facility] 2021-08-11 2021-08-11 Office Mark Reece [facility] [id number] [facility] 07:43:20 07:58:20 Visit Alice Petersen Aba [facility] 2021-08-11 2021-08-11 Outpatient EL ALICE PETERSEN [facility] [id number] [facility]H 07:43:20 07:43:20 2021-08-11 2021-08-11 Travel [facility] [id number] [facility] 00:[facility]:00 00:00:00 [facility] 2021-08-10 2021-08-10 Telephone Viktor [facility] [id number] 00:00:00 00:00:00 [facility] 2021-08-08 2021-08-08 Outpatient EL SLE SLE [id number] SLE 00:00:00 00:00:00 2021-08-08 2021-08-08 Telephone Viktor [facility] [id number] 00:00:00 00:00:00 [facility] 2021-08-05 2021-08-05 Telephone Maxx [facility] [id number] 00:00:00 00:00:00 [facility] 2021-07-26 2021-07-26 Outpatient DIANA ALEXIS [facility] SLE [id number] SLE 07:43:55 23:59:00 RISE 2021-07-26 2021-07-26 [facility] Vanesa [facility] [id number] 07:43:55 23:59:00 Encounter [facility] 2021-07-26 2021-07-26 Follow-Up Ashok Dexter [facility] [id number] 10:07:10 10:37:10 Santosh [facility] 2021-07-26 2021-07-26 Outpatient EL ISRAEL SLE SLE [id number] SLE 10:07:10 10:07:10 SANTOSH 2021-07-25 2021-07-25 Office Mark Reece [facility] [id number] [facility] 08:02:50 08:17:50 Visit Gissel Goff [facility] 2021-07-25 2021-07-25 Outpatient EL AGUSTO SLE SLE [id number] SLEH 08:02:50 08:02:50 GISSEL 2021-07-22 2021-07-22 Telephone Radha [facility] [id number] 00:00:00 00:00:00 Kelsie [facility] 2021-07-19 2021-07-20 Outpatient MAURI DENISE [facility] [id number] [facility] 16:01:11 16:03:28 [facility] 2021-07-19 2021-07-19 Outpatient EL CAMELIA, SLE Surgery [id number] [facility] 07:40:00 10:46:00 [facility] 2021-07-19 2021-07-19 Hospital [facility] [id number] 07:40:00 10:46:00 Encounter [facility] 2021-07-19 2021-07-19 Anesthesia Price Diaz [facility] [id number] 09:35:00 10:02:00 Event Zhane Kline [facility] 2021-07-19 2021-07-19 [facility] [id number] 09:00:00 09:30:00 [facility] 2021-07-19 2021-07-19 Travel [facility] [id number] [facility] 00:00[facility]00 00:00:00 [facility] 2021-07-15 2021-07-15 Outpatient [facility] [id number] SLE 08:47:27 23:59:00 2021-07-15 2021-07-15 [facility] [id number] 08:05:00 23:59:00 Encounter [facility] 2021-07-15 2021-07-15 Travel [facility] [id number] [facility] 00:00:00 00:00:00 [facility] 2021-07-14 2021-07-14 Episode , [facility] [id number] 00:00:00 00:00:00 Changes Sherry Jones [facility] 2021-07-11 2021-07-11 Office Ashok Oneil [facility] [id number] 08:02:26 08:17:26 Visit Alice Petersen [facility] 2021-07-11 2021-07-11 Outpatient EL SLE SLE [id number] [facility] 08:02:26 08:02:26 2021-07-11 2021-07-11 Telephone Farzad [facility] [id number] 00:00:00 00:00:[address] [facility] 2021-07-11 2021-07-11 Telephone Suman [facility] [id number] 00:00:00 00:00:00 [facility] 2021-07-11 2021-07-11 Orders John [facility] [id number] 00:00:00 00:00:00 Only Xin Almazan [facility] 2021-07-07 2021-07-07 Outpatient EL VANESA, SLE SLE [id number] [facility] 00:00:00 00:00:00 RISE 2021-07-07 2021-07-07 Outpatient EL SLE SLE [id number] [facility] 00:00:00 00:00:00 2021-06-30 2021-06-30 Telephone Agusto [facility] [id number] 00:00:00 00:00:00 [facility] 2021-06-30 2021-06-30 Telephone Radha [facility] [id number] 00:00:00 00:00:00 Sue Kahn [facility] 2021-06-23 2021-06-23 Office DIANA OneilAshok [facility] [id number] 08:30:20 08:45:20 Visit Alice Petersen [facility] 2021-06-23 2021-06-23 Outpatient EL SLE [facility]H [id number] [facility] 08:30:20 08:30:20 2021-06-23 2021-06-23 Refnikolai Hoang [facility] [id number] 00:00:00 00:00:00 [facility] 2021-06-23 2021-06-23 Social Will, [facility] [id number] 00:00:00 00:00:00 Work [facility] 2021-06-13 2021-06-13 Orders DIANA Pacheco, [facility] [id number] 11:25:57 11:35:57 Only Pebbles Chaparro[facility] 2021-06-13 2021-06-13 Outpatient EL [facility] SLE [id number] SLE 11:25:57 11:25:57 2021-06-13 2021-06-13 Telephone Farzad [facility] [id number] 00:00:00 00:00:00 [facility] 2021-06-10 2021-06-10 Orders Rocael [facility] [id number] 00:00:00 00:00:00 Only Martina [facility] 2021-06-10 2021-06-10 Telephone Radha [facility] [id number] 00:00:00 00:00:00 [facility] 2021-06-10 2021-06-10 Telephone Radha [facility] [id number] 00:00:00 00:00:00 [facility] 2021-06-06 2021-06-06 Telephone Radha [facility] [id number] 00:00:00 00:00:00 [facility] 2021-05-31 2021-05-31 Office Elsy [facility] [id number] 12:00:00 12:15:00 Visit [facility] 2021-05-31 2021-05-31 Outpatient EL SLE SLE [id number] [facility] 00:00:00 00:00:00 2021-05-31 2021-05-31 Outpatient ELSY [facility]H [id number] [facility] 00:00:00 00:00:00 [facility] 2021-05-24 2021-05-24 Outpatient SLE SLE [id number] [facility] 00:00:00 00:00:00 2021-05-04 2021-05-04 Telephone William [facility] [id number] 00:00:00 00:00:00 [facility] 2021-04-29 2021-04-29 Telephone Farzad [facility] [id number] 00:00:00 00:00:00 [facility] 2021-04-28 2021-04-28 Orders Sg [facility] [id number] 00:00:00 00:00:00 Only Henok [facility] 2021-04-26 2021-04-26 Follow-Up David Harris [facility] [id number] [facility] 09:01:07 09:31:07 Pebbles Pacheco [facility] 2021-04-26 2021-04-26 Outpatient SLE SLE [id number] [facility] 00:00:00 00:00:00 2021-04-22 2021-04-22 Telephone Radha [facility] [id number] 00:00:00 00:00:00 Kelsie [facility] 2021-04-07 2021-04-13 [facility] Lenora Last [facility] [id number] 14:13:00 12:59:00 [facility] Chink[facility] 2021-04-12 2021-04-12 Surgery Elsy [facility] [id number] 16:30:00 18:42:00 [facility] 2021-04-12 2021-04-12 Telephone Radha, [facility] [id number] 00:00:00 00:00:00 Sue Kahn [facility] 2021-04-10 2021-04-10 Orders [facility] [id number] 00:00:00 00:00:00 [facility] 2021-04-08 2021-04-08 Telephone Elsy [facility] [id number] 00:00:00 00:00:00 [facility] 2021-04-07 2021-04-07 Outpatient [facility] [id number] [facility] 00:00:00 23:59:00 Jian 2021-04-07 2021-04-07 Emergency ER [facility] Emergency [id number] SLE 10:50:00 10:50:00 2021-04-07 2021-04-07 Office Mark Reece [facility] [id number] [facility] 09:45:13 10:00:13 Visit Alice Petersen [facility] 2021-04-07 2021-04-07 Outpatient EL [facility] [id number] SLE 00:00:00 00:00:00 2021-04-07 2021-04-07 Travel [facility] [id number] [facility] 00:00:00 00:00:00 [facility] 2021-04-05 2021-04-05 [facility] Vanesa [facility] [id number] 09:15:54 23:59:00 [facility] 2021-04-05 2021-04-05 Office Elsy [facility] [id number] 11:42:41 11:57:41 Visit [facility] 2021-04-05 2021-04-05 Outpatient VANESA [facility] [id number] [facility] 00:00:00 00:00:00 RISE 2021-04-05 2021-04-05 Outpatient EL ELSY SLE [facility] [id number] [facility] 00:00:00 00:00:00 JERAMY 2021-03-28 2021-03-28 Office EL [id number] [facility] 09:35:42 09:50:42 Visit Alice Petersen [facility] 2021-03-28 2021-03-28 Outpatient EL SLE SLE [id number] [facility] 00:00:00 00:00:00 2021-03-25 2021-03-25 [facility] [id number] 00:00:00 00:00:00 [facility] 2021-03-25 2021-03-25 Telephone Leroy [facility] [id number] 00:00:00 00:00:00 [facility] 2021-03-15 2021-03-22 Hospital Alice Petersen [facility] [id number] 05:33:00 14:09:00 Encounter Fred Mcbride [facility] 2021-03-17 2021-03-17 Outpatient SLE SLE [id number] [facility] 00:00:00 00:00:00 2021-03-17 2021-03-17 Documentat Rolf [facility] [id number] 00:00:00 00:00:00 ion [facility] 2021-03-17 2021-03-17 Telephone Radha [facility] [id number] 00:00:00 00:00:00 [facility] 2021-03-16 2021-03-16 Outpatient [facility] [id number] [facility] 00:00:00 23:59:00 Jian 2021-03-15 2021-03-15 Outpatient [facility] [id number] [facility] 05:33:00 23:59:00 Jian 2021-03-15 2021-03-15 Anesthesia Rashaad Friedman [facility] [id number] 07:07:00 12:48:00 Event Enedelia Leal [facility] 2021-03-15 2021-03-15 Surgery WaqarAlice posadas [facility] [id number] 07:30:00 10:38:00 [facility] 2021-03-10 2021-03-10 Outpatient DIANA ALEXIS, [facility] [id number] SLE 00:00:00 00:00:00 RISE 2021-03-10 2021-03-10 Outpatient DIANA CHIN, [facility] [id number] SLE 00:00:00 00:00:00 JERAMY 2021-03-10 2021-03-10 Outpatient [facility] [id number] SLE 00:00:00 00:00:00 2021-03-10 2021-03-10 Orders Agusto [facility] [id number] 00:00:00 00:00:00 Only [facility] 2021-03-09 2021-03-09 [facility] [id number] 15:15:00 23:59:00 Encounter [facility] 2021-03-09 2021-03-09 Outpatient [facility] [id number] SLE 00:00:00 00:00:00 2021-03-09 2021-03-09 Travel [facility] [id number] [facility] 00:00:00 00:00:00 [facility] 2021-03-04 2021-03-04 Telephone Agusto [facility] [id number] 00:00:00 00:00:00 [facility] 2021-02-28 2021-02-28 Office Basilia Felizyudelka [facility] [id number] 08:35:44 09:05:44 Visit [facility] 2021-02-28 2021-02-28 Outpatient EL SLE [facility]H [id number] [facility] 00:00:00 00:00:00 2021-02-25 2021-02-25 Telephone Lore [facility] [id number] 00:00:00 00:00:00 [facility] 2021-02-24 2021-02-24 Outpatient SONIA SIMMONS SLE [id number] [facility] 00:00:00 00:00:00 RISE 2021-02-24 2021-02-24 Documentat Bansal [facility] [id number] 00:00:00 00:00:00 ion [facility] 2021-02-22 2021-02-22 Follow-Up Kyle SimmonsShaka [facility] [id number] 09:31:30 10:01:30 Ashok Oneil [facility] 2021-02-22 2021-02-22 Outpatient EL SLE SLE [id number] [facility] 00:00:00 00:00:00 2021-02-17 2021-02-17 Telephone Farzad [facility] [id number] 00:00:00 00:00:00 Kim R [facility] 2021-02-16 2021-02-16 Telephone Rony [facility] [id number] 00:00[facility]00 00[facility]00[facility]00 [facility] 2021-02-08 2021-02-08 Hospital EL Tombernadette [facility] [id number] 13:33:00 17:11:00 Encounter [facility] 2021-02-08 2021-02-08 Anesthesia María [facility] [id number] 15:35:00 16:07:00 Event [facility] 2021-02-08 2021-02-08 Surgery Camelia [facility] [id number] 15:00:00 15:30:00 [facility] 2021-02-08 2021-02-08 Travel [facility] [id number] [facility] 00:00:00 00:00:00 [facility] 2021-02-02 2021-02-02 [facility] [id number] 12:35:49 23:59:00 Encounter [facility] 2021-02-02 2021-02-02 Outpatient EL SLE SLE [id number] [facility] 00:00:00 00:00:00 2021-02-02 2021-02-02 Travel [facility] [id number] [facility] 00:00:00 00:00:00 [facility] 2021-01-21 2021-01-21 [facility] [id number] 00:00:00 00:00:00 ion [facility] 2021-01-13 2021-01-13 [facility] [id number] 00:00:00 00:00:00 Only [facility] 2021-01-04 2021-01-04 [facility] Vanesa, [facility] [id number] 13:02:33 23:59:00 Encounter [facility] 2021-01-04 2021-01-04 Follow-Up EL Vanesa [facility] [id number] 11:03:41 11:33:41 Rise [facility] 2021-01-04 2021-01-04 Outpatient EL SLE SLE [id number] [facility] 00:00:00 00:00:00 2021-01-04 2021-01-04 Outpatient VANESA SLE SLE [id number] [facility] 00:00:00 00:00:00 RISE 2021-01-04 2021-01-04 Telephone William [facility] [id number] 00:00:00 00:00:00 [facility] 2020-11-29 2020-11-29 Telephone Radha [facility] [id number] 00:00:00 00:00:00 Sue Kahn [facility] 2020-11-19 2020-11-19 Documentat Farzad [facility] [id number] 00:00:00 00:00:00 ion Kim Jones [facility] 2020-10-31 2020-10-31 Immunizati Covid [facility] [id number] 09:06:35 09:16:35 on Employee [facility] 2020-10-31 2020-10-31 Outpatient EL SLEH SLE [id number] SLE 00:00:00 00:00:00 2020-10-22 2020-10-22 [facility] [id number] 10:40:00 16:45:00 Encounter [facility] 2020-10-22 2020-10-22 Anesthesia Tariq Rodriges [facility] [id number] [facility] 13:46:00 14:49:00 Event RamirezHenok [facility] 2020-10-22 2020-10-22 Surgery [facility], [facility] [id number] 10:30:00 12:10:00 [facility] 2020-10-22 2020-10-22 Travel [facility] [id number] [facility] 00:00:00 00:00:00 [facility] 2020-10-19 2020-10-19 Outpatient EL SLEH SLEH [id number] [facility] 00:00:00 00:00:00 2020-10-10 2020-10-10 Outpatient EL SLEH SLEH [id number] [facility] 00:00:00 00:00:00 2020-09-28 2020-09-28 Outpatient EL SLEH SLEH [id number] [facility] 00:00:00 00:00:00 2020-08-30 2020-08-30 Emergency ER SLE Emergency [id number] [facility]H 10:54:00 10:54:00 2020-08-26 2020-08-26 Outpatient EL SLEH SLEH [id number] [facility] 00:00:00 00:00:00 2020-08-12 2020-08-12 Outpatient EL SLEH SLEH [id number] [facility] 00:00:00 00:00:00 2020-07-22 2020-07-22 Emergency ER SLEH Emergency [id number] [facility] 10:32:00 10:32:00 2020-07-15 2020-07-15 Outpatient EL PEDRITO ADAMS MDA [id number] MD 00:00:00 00:00:00 CLIFFORD Kobe burke andujar 2020-07-15 2020-07-15 Outpatient RALPH HORNER SLEH SLEH [id number] [facility] 00:00:00 00:00:00 2020-07-15 2020-07-15 Outpatient DIANA CHIN SLEH SLEH [id number] [facility] 00:00:00 00:00:00 [facility] 2020-07-01 2020-07-[address] [facility] [id number] [facility] 14:36:16 17:23:55 Visit , Apolonia AMBULATOR [id number] College Y [id number] [facility] 310 e 2020-06-22 2020-06-22 Outpatient EL SLEH SLEH [id number] [facility] 00:00:00 00:00:00 2020-06-22 2020-06-22 Outpatient SLEH SLEH [id number] [facility] 00:00:00 00:00:00 2020-06-22 2020-06-22 Outpatient RALPH POLLOCK SLEH SLEH [id number] [facility] 00:00:00 00:00:00 2020-06-22 2020-06-22 Outpatient SLEH SLEH [id number] [facility]H 00:00:00 00:00:00 2020-06-21 2020-06-21 Outpatient EL SLEH SLEH [id number] [facility] 00:00:00 00:00:00 2020-04-13 2020-04-13 Outpatient DIANA ADAMS MDA MDA [id number] MD 13:46:09 15:54:48 CLIFFORD Ovallesharoon andujar 2020-03-23 2020-03-23 Outpatient EL BUNI, MDA MDA [id number] MD 14:02:08 23:59:00 CLIFFORD Ovallesers o n 2020-03-23 2020-03-23 Outpatient EL BUNI, MDA MDA [id number] MD 15:08:58 15:08:58 CLIFFORD Ovallesers o pratima 2020-03-23 2020-03-23 Outpatient EL BUNI, MDA MDA [id number] MD 15:08:39 15:08:39 CLIFFORD Ovallesers burke andujar 2020-03-23 2020-03-23 Outpatient EL BUNI, MDA MDA [id number] MD 12:49:50 14:14:26 CLIFFORD Kobe o pratima 2020-03-19 2020-03-19 Outpatient EL CORDELL, MDA MDA [id number] 10:12:15 10:12:15 [place] And erso n 2020-03-18 2020-03-18 Outpatient EL TOMS, SHARA MDA MDA [id number] 00:00:00 00:00:00 Kobe o pratima 2020-03-04 2020-03-04 Outpatient EL TOMS, SHARA MDA MDA [id number] MD 14:47:57 23:59:00 Kobe o pratima 2020-03-04 2020-03-04 Outpatient EL TOMS, SHARA MDA MDA [id number] MD 14:45:00 14:46:00 Kobe o pratima 2020-03-04 2020-03-04 Outpatient EL TOMS, SHARA MDA MDA [id number] 10:51:00 14:44:00 Kobe o n 2020-03-04 2020-03-04 Outpatient EL CORDELL, MDA MDA [id number] 09:14:00 14:42:35 PRITHVIRAJ And erso n 2020-03-04 2020-03-04 Outpatient EL RALPH, MDA MDA [id number] MD 10:20:16 10:50:00 L. Kobe o n 2020-03-04 2020-03-04 Outpatient EL CORDELL, MDA MDA [id number] 09:40:14 09:40:14 PRITHVIRAJ And erso n 2020-03-04 2020-03-04 Outpatient EL CORDELL, MDA MDA [id number] 09:13:12 09:13:12 KAYLA And erso n 2020-03-02 2020-03-02 Outpatient DIANA LANDA MDA MDA [id number] 08:30:09 08:37:57 KAYLA And erso n 2019-02-28 2019-02-28 Outpatient [facility] [id number] [facility] 08:51:00 08:51:00 Results Test Description Test Time Test Comments Results Result Sour e Comments CT, ABDOMEN, 2021-12-01 WITHOUT 13:17:00 MINDIKOGLUReferrin g: Dr. Oneil Liver Prctocol-Triple [facility] - PhaseUnlisted [facility]: Reason for Exam - AGNES ARAMBULA Click Yes and [place] MCKEONB: Enter Reason 1950 Below->YesUnlisted Sex: Reason for M Exam->Follow up of SMV thrombosis. CirrhosisWill this FINAL REPORT procedure require PATIENT ID: oral contrast?->No [id number] CT Chest without contrast; CT abdomen without and with contrast History: Hypoxemia, decompensated cirrhosis Comparison: CT chest 10/17/2021; CT abdomen and pelvis 10/28/2021 Technique: serial axial imaging was performed without intravenous contrast as per departmental protocol. Multiplanar images are reconstructed and reviewed when indicated. This CT examination is performed using one or more of the following dose reduction techniques: Automated exposure control, adjustment of the mA and /or kV according to patient size, and/or use of iterative reconstruction technique. Findings:No mediastinal lymphadenopathy. No definite hilar enlargement. Normal size heart. No pericardial effusion. No thoracic aortic aneurysm. Normal caliber of main pulmonary trunk. Patent central airways. Interval development of small bilateral pleural effusions, left greater than right. Interval improvement in previous bilateral pulmonary consolidations. There are persistent areas of peribronchial and interlobular septal thickening within the peripheral aspects of the lungs, predominantly involving the upper lobes. Unremarkable appearance of the pancreas. Moderate splenomegaly. The liver appears cirrhotic. No hepatic mass or suspicious focus of enhancement is demonstrated. Pneumobilia is seen within the liver, consistent with prior sphincterotomy. Cholelithiasis is again seen. The central hepatic and portal veins appear patent. Main portal vein is enlarged, measuring up to 16 mm in caliber. Esophageal, gastric, and splenic varices are consistent with portal hypertension. Unremarkable appearance of the adrenal glands. Again seen are multiple bilateral nonobstructing renal calculi. No hydronephrosis or renal mass is visualized. . No small or large bowel obstruction. No apparent bowel wall thickening. Moderate ascites is noted. No adenopathy is appreciated. No abdominal aortic aneurysm. No aggressive osseous lesion. Impression: 1. Interval improvement in previous pulmonary consolidations, likely improved pneumonia.2. Areas of probable postinfectious/post inflammatory scarring are now noted within the peripheral aspects of the lungs, most pronounced within the upper lobes.3. Interval development of small bilateral pleural effusions, left greater than right.4. Cirrhosis and portal hypertension. Esophageal, gastric, and splenic varices. Moderate splenomegaly. Moderate ascites.5. Bilateral nonobstructing nephrolithiasis. Signed: Parrish Morrissey [facility] Verified Date/Time: 12/01/2021 13:17:23 , CHEST, WITHOUT 2021-12-01 CONTRAST 13:17:00 MINDIKOGLUReferrin g: Dr. Oneil Unlisted Reason MAGUE CONNORS - for Exam - Click [facility] CENTER[facility]: Yes and Enter AGNES ARAMBULA Reason [place] : Below->YesUnlisted 1950 Reason for Sex: Exam->History of M COVID. Requiring supplemental oxygen FINAL REPORT CT Chest without contrast; CT abdomen without and with contrast History: Hypoxemia, decompensated cirrhosis Comparison: CT chest 10/17/2021; CT abdomen and pelvis 10/28/2021 Technique: serial axial imaging was performed without intravenous contrast as per departmental protocol. Multiplanar images are reconstructed and reviewed when indicated. This CT examination is performed using one or more of the following dose reduction techniques: Automated exposure control, adjustment of the mA and /or kV according to patient size, and/or use of iterative reconstruction technique. Findings:No mediastinal lymphadenopathy. No definite hilar enlargement. Normal size heart. No pericardial effusion. No thoracic aortic aneurysm. Normal caliber of main pulmonary trunk. Patent central airways. Interval development of small bilateral pleural effusions, left greater than right. Interval improvement in previous bilateral pulmonary consolidations. There are persistent areas of peribronchial and interlobular septal thickening within the peripheral aspects of the lungs, predominantly involving the upper lobes. Unremarkable appearance of the pancreas. Moderate splenomegaly. The liver appears cirrhotic. No hepatic mass or suspicious focus of enhancement is demonstrated. Pneumobilia is seen within the liver, consistent with prior sphincterotomy. Cholelithiasis is again seen. The central hepatic and portal veins appear patent. Main portal vein is enlarged, measuring up to 16 mm in caliber. Esophageal, gastric, and splenic varices are consistent with portal hypertension. Unremarkable appearance of the adrenal glands. Again seen are multiple bilateral nonobstructing renal calculi. No hydronephrosis or renal mass is visualized. . No small or large bowel obstruction. No apparent bowel wall thickening. Moderate ascites is noted. No adenopathy is appreciated. No abdominal aortic aneurysm. No aggressive osseous lesion. Impression: 1. Interval improvement in previous pulmonary consolidations, likely improved pneumonia.2. Areas of probable postinfectious/post inflammatory scarring are now noted within the peripheral aspects of the lungs, most pronounced within the upper lobes.3. Interval development of small bilateral pleural effusions, left greater than right.4. Cirrhosis and portal hypertension. Esophageal, gastric, and splenic varices. Moderate splenomegaly. Moderate ascites.5. Bilateral nonobstructing nephrolithiasis. Signed: Parrish Morrissey [facility] Verified Date/Time: 12/01/2021 13:17:23 U/S, PARACENTESIS 2021-11-29 16:58:00 MINDIKOGLUReferrin g: Dr. Oneil Administer [address] [facility] - of albumin 25% (50 MEDICAL CENTERName: grams) IV x1 after AGNES ARAMBULA paracentesis if 3 [place] : or more liters 1950 removed.Send Sex: ascitic fluid for M cell count and differential.Labs to be FINAL REPORT ordered:->Cell PATIENT ID: CountReason for [id number] Ultrasound Exam:->ASCITES guided paracentesis Clinical History: Ascites. Sedation: None. Lithographic Camera Operator: Johanne Green PA-C Supervising Physician: Esteban Higgins MD Store Worker: None. Estimated Blood Loss: < 1 mL. Specimen: 7000 mL of cloudy yellow fluid, samples sent to laboratory. Technique: Informed consent was obtained. The risks of pain, bleeding, infection, bowel perforation, injury to adjacent structures, and adverse medication reactions were discussed with the patient. After informed consent was obtained, the patient's abdomen was scanned. The left lower quadrant of the abdomen was selected for paracentesis. After the largest fluid pocket area was marked, and the anterior abdominal wall was evaluated with color Doppler to exclude presence of blood vessels traversing the area, the skin was prepped and draped in the usual sterile manner. After local anesthesia was achieved with lidocaine, a 5 Dutch one-step catheter was advanced into the peritoneal cavity under ultrasound guidance. After completion of drainage, the catheter was removed. There was no evidence of complication. Impression:Successf ul ultrasound guided paracentesis. Signed: Esteban Higgins [facility] Verified Date/Time: 11/29/2021 16:58:17 Reading Location: [facility] [facility] P006J Ultrasound Reading Room FLUID CELL COUNT WITH DIFFERENTIAL 2021-11-29 14:34:47 Test Item Value Reference Range Interpretation Comme nts APPEARANCE FLUID (BEAKER) Hazy Clear A (test code = 510) COLOR FLUID (BEAKER) (test Straw Colorless, Straw code = 511) RBC FLUID (BEAKER) (test 1359 /cu mm See_Comment H [A utomated message] The code = 513) system which [facility] nerated this result tra nsmitted reference range : <=1. The reference range was not used to interpr et this result as marci l/abnormal. ADJUSTED WBC FLUID (BEAKER) 166 /cu mm See_Comment H [Automated message] The (test code = 1691) system [employer] generated this result tra nsmitted reference range : <=5. The reference range was not used to interpr et this result as marci l/abnormal. LINING CELLS (BEAKER) (test 25 /cu mm See_Comment H [Automated message] The code = 1590) system which [facility] nerated this result tra nsmitted reference range : <=1. The reference range was not used to interpr et this result as marci l/abnormal. NEUTROPHILS FLUID (BEAKER) 19 % (test code = 1656) LYMPHS FLUID (BEAKER) (test 13 % code = 488) MONO/MACROPHAGE FLUID 68 % (BEAKER) (test code = 489) EOSINOPHILS FLUID (BEAKER) 0 % (test code = 491) BASO FLUID (BEAKER) (test 0 % code = 492) CONTAINER BODY FLUID Sterile Vial (BEAKER) (test code = 2873) FUNGUS CULTURE + [id number] 04:16:30 Test Item Value Reference Range Interpretation Comments CULTURE (BEAKER) (test No fungus isolated in code = 1095) 28 days FUNGUS SMEAR (BEAKER) No fungi seen (test code = 1406) U/S, [id number] 10:23:00DR MINDIKOGLUReferring: Dr. Oneil Administer 200 mL of albumin 25% (50 grams) IV x1 after paracentesis if 3 or more liters removed.Send ascitic fluid for cell count and differential.Labs to be ordered:- >Cell CountReason for Exam:->ascites [facility] : 1950 Sex: MFINAL REPORT HISTORY : Ascites Operators: This procedure was performed by BRANDAN Rivera under direct supervision of Esteban Higgins M.D. Technique/findings:Informedwritten consent was obtained. Discussion of risks, benefits, and alternatives were made with the patient. The patient expressed understanding and agreed to proceed. A universal timeout was performed prior to starting the procedure. Initial ultrasound images demonstrate large volume of ascites. A pocket of fluid was identified in the left upper quadrant of the abdomen. This area was marked. The area was prepped and draped in the usual sterile fashion. 1% lidocaine was applied to the skin and deep soft tissues. A 5 Dutch one-step catheter was inserted and removed from the peritoneal space and approximately 6.9 liters of slightly cloudy yellow fluid was aspirated from the abdomen. There were no immediate complications. Impression: Successful ultrasound guided paracentesis with aspiration of 6.9 liters of fluid. Signed: Esteban Higgins MDReport Verified Date/Time: 11/16/2021 10:23:49 Reading Loc ation: [facility] Radiology Reading Room Electronically signed by: ESTEBAN HIGGINS MD on 210:23 AMFECAL [id number] 02:24:49 Test Item Value Reference Range Interpretation Comments FECAL LEUKOCYTES No fecal leukocytes No fecal leukocytes (BEAKER) (test code = seen seen 992) GI PATHOGEN PROFILE BY [id number] 21:55:47 Test Item Value Reference Range Interpretation Comments CAMPYLOBACTER (PCR) (test code = Not detected Not detected 20160314) PLESIOMONAS SHIGELLOIDES (PCR) Not detected Not detected (test code = 20160318) SALMONELLA (PCR) (test code = Not detected Not detected ) YERSINIA ENTEROCOLITICA (PCR) Not detected Not detected (test code = 20160410) VIBRIO CHOLERAE (PCR) (test code Not detected Not detected = 20160411) ENTEROAGGREGATIVE E. COLI (EAEC) Not detected Not detected BY PCR (test code = 9355540) ENTEROPATHOGENIC E. COLI (EPEC) Not detected Not detected BY PCR (test code = 20160413) ENTEROTOXIGENIC E. COLI (ETEC) Not detected Not detected LT/ST BY PCR (test code = 20160414) SHIGA-LIKE TOXIN-PRODUCING E. Not detected Not detected COLI (STEC) STX1/STX2 (test code = 20160415) E. COLI O157 (PCR) (test code = 4806035) SHIGELLA/ENTEROINVASIVE E. COLI Not detected Not detected (EIEC) BY PCR (test code = 20160417) CRYPTOSPORIDIUM (PCR) (test code Not detected Not detected = 20160418) CYCLOSPORA CAYETANENSIS (PCR) Not detected Not detected (test code = ) ENTAMOEBA HISTOLYTICA (PCR) Not detected Not detected (test code = 20160511) GIARDIA LAMBLIA (PCR) (test code Not detected Not detected = 20160512) ADENOVIRUS F 40/41 (PCR) (test Not detected Not detected code = 20160513) ASTROVIRUS (PCR) (test code = Not detected Not detected 20160514) NOROVIRUS GI/GII (PCR) (test Not detected Not detected code = 20160515) ROTAVIRUS A (PCR) (test code = Not detected Not detected 20160516) SAPOVIRUS (I, II, IV, V) BY PCR Not detected Not detected (test code = 20160517) VIBRIO (PARAHAEMOLYTICUS, Not detected Not detected VULNIFICUS) (test code = ) Other viruses, parasites and bacteria not targeted by this PCR panel cannot be excluded; therefore clinical correlation and follow up of serology, culture results, and other molecular studies is required. The results are not intended to be used as the sole means for clinical diagnosis or patient management decisions. This sample was tested at the [facility] Molecular Diagnostics Laboratory using the [employer] Gastrointestinal Panel. It is FDA cleared and has been verified and approved by the [facility] Molecular Diagnostics Laboratory for clinical use. This laboratory is CLIA-certified and College ofAmerican Pathologists (CAP)-accredited to perform high complexity testing.C. DIFFICILE GDH [id number] 20:41:56 Test Item Value Reference Range Interpretation Comments CDT TOXIN (test code Negative Negative = [id number]) CDT GDH ANTIGEN Positive Negative A C. difficile present but (test code = toxin not detec chilango. [id number]) Indicates colon ization with non-toxige kevin strain or level of tox in below detectable leve ls. No need for enteri c isolation. Jesus atment is rarely needed ( only when strong clinical suspicion for Clostridium difficile infection) Testing performed by [employer] Rapid Cassette Assay. For GDH, published sensitivity of the assay is 98.7% compared to cytotoxicity testing. For Toxin AB, published sensitivity is 87.8% and specificity 99.4% compared to cytotoxicity testing.Verification of kit performance was done by the [facility] Microbiology Lab prior to clinical use.PROTHROMBIN TIME/[id number] 13:05:07 Test Item Value Reference Range Interpretation Comments PROTIME (BEAKER) 16.7 seconds 11.9-14.2 H (test code = 759) INR (BEAKER) (test 1.37 See_Comment [Automat ed message] code = 370) The system [employer] generated this result transmitted ref erence range: <=5.90. The reference range was not used to int erpret this result as normal/abnormal . RECOMMENDED COUMADIN/WARFARIN INR THERAPY RANGESSTANDARD DOSE: 2.0 - 3.0 Includes: PROPHYLAXIS forvenous thrombosis, systemic embolization; TREATMENT for venous thrombosis and/or pulmonary embolus.HIGH RISK: Target INR is 2.5-3.5 for patients with mechanical heart valves.COMPREHENSIVE METABOLIC [id number] 12:14:26 Test Item Value Reference Range Interpretation Comments TOTAL PROTEIN 6.2 gm/dL 6.0-8.3 (BEAKER) (test code = 770) ALBUMIN (BEAKER) 2.9 g/dL 3.5-5.0 L (test code = 1145) ALKALINE PHOSPHATASE 60 U/L 40-150 (BEAKER) (test code = 346) BILIRUBIN TOTAL 0.9 mg/dL 0.2-1.2 (BEAKER) (test code = 377) SODIUM (BEAKER) (test 137 meq/L 136-145 code = 381) POTASSIUM (BEAKER) 4.0 meq/L 3.5-5.1 (test code = 379) CHLORIDE (BEAKER) 101 meq/L 98-107 (test code = 382) CO2 (BEAKER) (test 30 meq/L 22-29 H code = 355) BLOOD UREA NITROGEN 19 mg/dL 7-21 (BEAKER) (test code = 354) CREATININE (BEAKER) 0.86 mg/dL 0.57-1.25 (test code = 358) GLUCOSE RANDOM 124 mg/dL 70-105 H (BEAKER) (test code = 652) CALCIUM (BEAKER) 8.9 mg/dL 8.4-10.2 (test code = 697) AST (SGOT) (BEAKER) 21 U/L 5-34 (test code = 353) ALT (SGPT) (BEAKER) 10 U/L 6-55 (test code = 347) EGFR (BEAKER) (test 88 mL/min/1.73 ESTIMA CHILANGO GFR IS code = 1092) sq m NOT ACCURATE CREATININE CLEARANCE IN PREDICTING GLOMERULAR FILTRATION RATE . ESTIMATED GFR I S NOT APPLICABLE FOR DIALYSIS PATIEN TS. 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 - ELAINE CBILIRUBIN, [id number] 12:14:26 Test Item Value Reference Range Interpretation Comments BILIRUBIN DIRECT (BEAKER) (test 0.7 mg/dL 0.1-0.5 H code = 706) 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 - ELAINE CCBC W/PLT COUNT & AUTO [id number] 11:55:27 Test Item Value Reference Range Interpretation Comments WHITE BLOOD CELL COUNT (BEAKER) 3.1 K/ L 3.5-10.5 L (test code = 775) RED BLOOD CELL COUNT (BEAKER) 4.15 M/ L 4.63-6.08 L (test code = 761) HEMOGLOBIN (BEAKER) (test code = 9.1 GM/DL 13.7-17.5 L 410) HEMATOCRIT (BEAKER) (test code = 32.7 % 40.1-51.0 L 411) MEAN CORPUSCULAR VOLUME (BEAKER) 78.8 fL 79.0-92.2 L (test code = 753) MEAN CORPUSCULAR HEMOGLOBIN 21.9 pg 25.7-32.2 L (BEAKER) (test code = 751) MEAN CORPUSCULAR HEMOGLOBIN CONC 27.8 GM/DL 32.3-36.5 L (BEAKER) (test code = 752) RED CELL DISTRIBUTION WIDTH 21.2 % 11.6-14.4 H (BEAKER) (test code = 412) PLATELET COUNT (BEAKER) (test code 99 K/CU MM 150-450 L = 756) MEAN PLATELET VOLUME (BEAKER) 10.2 fL 9.4-12.4 (test code = 754) NUCLEATED RED BLOOD CELLS (BEAKER) 0 /100 WBC 0-0 (test code = 413) NEUTROPHILS RELATIVE PERCENT 76 % (BEAKER) (test code = 429) LYMPHOCYTES RELATIVE PERCENT 11 % (BEAKER) (test code = 430) MONOCYTES RELATIVE PERCENT 11 % (BEAKER) (test code = 431) EOSINOPHILS RELATIVE PERCENT 1 % (BEAKER) (test code = 432) BASOPHILS RELATIVE PERCENT 1 % (BEAKER) (test code = 437) NEUTROPHILS ABSOLUTE COUNT 2.34 K/ L 1.78-5.38 (BEAKER) (test code = 670) LYMPHOCYTES ABSOLUTE COUNT 0.32 K/ L 1.32-3.57 L (BEAKER) (test code = 414) MONOCYTES ABSOLUTE COUNT (BEAKER) 0.33 K/ L 0.30-0.82 (test code = 415) EOSINOPHILS ABSOLUTE COUNT 0.04 K/ L 0.04-0.54 (BEAKER) (test code = 416) BASOPHILS ABSOLUTE COUNT (BEAKER) 0.02 K/ L 0.01-0.08 (test code = 417) IMMATURE GRANULOCYTES-RELATIVE 0 % 0-1 PERCENT (BEAKER) (test code = 2801) BODY FLUID CELL COUNT WITH [id number] 13:11:09 Test Item Value Reference Range Interpretation Comments APPEARANCE FLUID Turbid Clear A (BEAKER) (test code = 510) COLOR FLUID Yellow Colorless, Straw A (BEAKER) (test code = 511) RBC FLUID (BEAKER) 117 /cu mm See_Comment H [Automat ed (test code = 513) message] T he system which generated this result transmit chilango reference range : <=1. The refere nce range was not u sed to interpret th is result as normal/abnormal . ADJUSTED WBC FLUID 3 /cu mm See_Comment [Automat ed (BEAKER) (test code message] The = 1691) system which generated this result transmit chilango reference range : <=5. The refere nce range was not u sed to interpret th is result as normal/abnormal . LINING CELLS 0 /cu mm See_Comment [Automated (BEAKER) (test code message] The = 1590) system which generated this result transmit chilango reference range : <=1. The refere nce range was not u sed to interpret th is result as normal/abnormal . NEUTROPHILS FLUID 5 % (BEAKER) (test code = 1656) LYMPHS FLUID 31 % (BEAKER) (test code = 488) MONO/MACROPHAGE 64 % FLUID (BEAKER) (test code = 489) EOSINOPHILS FLUID 0 % (BEAKER) (test code = 491) BASO FLUID (BEAKER) 0 % (test code = 492) CONTAINER BODY Sterile Container FLUID (BEAKER) (test code = 2873) [id number] 18:28:07Medical Cytology Report Case: [id number] Authorizing Provider: Lamont Mirza MD Collected: 10/27/2021 05:31 PM Ordering Location: [address] Received: 10/28/2021 10:37 AM Service Pathologist: Tk Yeager MD Specimen: Peritoneal Fluid PERITONEAL FLUID (CYTOSPINS AND CELL BLOCK): - NO MALIGNANT CELLS IDENTIFIED REACTIVE MESOTHELIAL CELLS PRESENT Signing Pathologist Direct Phone Line: [phone] signed by Tk Yeager MD on 11/01/2021 at 6:28 [id number], [id number], [id number], [id number], history of HTN, DM2, hypothyroidism, hx seizure disorder on keppra, 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 SatisfactoryThe interpretation of this case included the use of immunohistochemistry or special stains.MIT60-sxbajvgqExwqvhppnw- negativeControl Slides Examined: In-house known positive controls were evaluated along with the test tissue. These control slides run alongside of the patients sample show appropriate staining. Internal positive and negative controls when available are evaluated Immunohistochemistry technical testing was performed at [facility], Pathology Laboratory where it was developed and its performance characteristics were determined. It has not been cleared or approved by the U.S. Food and Drug Administration. The FDA has determined that such clearance or approval is not necessary. The test is used for clinical purposes. It should not be regarded as investigational or for research. This laboratory is certified under the Clinical Laboratory Improvement Amendments of 1988 (CLIA-88) as qualified to perform high complexity clinical laboratory testing.[facility], Department of Pathology, [address] [place] [address], [facility] of [facility], [address] [place] [address], [id number] Ridge Hospital, Department of Pathology, [address] [place] [address], KZNRTRFAM [id number] 07:35:35 Test Item Value Reference Range Interpretation Comments CULTURE (BEAKER) (test No anaerobes isolated code = 1095) BLOOD [id number] 18:00:46 Test Item Value Reference Range Interpretation Comments CULTURE (BEAKER) (test No growth in 5 days code = 1095) The specimen volume collected for this blood culture was below the optimum (10 mL per bottle or 20 mL total). Use of lower volumes may adversely affect recovery and/or detection times of some organisms.BLOOD [id number] 18:00:46 Test Item Value Reference Range Interpretation Comments CULTURE (BEAKER) (test No growth in 5 days code = 1095) BODY FLUID CULTURE + GRAM [id number] 13:32:15 Test Item Value Reference Range Interpretation Comments CULTURE (BEAKER) (test code = 1095) No growth WOUND CULTURE + GRAM [id number] 09:36:23 Test Item Value Reference Range Interpretation Comments CULTURE (BEAKER) (test code See comment = 1095) GRAM STAIN RESULT (BEAKER) <1+ WBCs (test code = 1123) GRAM STAIN RESULT (BEAKER) No organisms seen (test code = 257900) 1+ Enteric organisms of >2 typesPOCT-GLUCOSE [id number] 12:19:43 Test Item Value Reference Range Interpretation Comments POC-GLUCOSE METER 216 mg/dL 70-110 H : TESTED A T [facility] 6720 (BEAKER) (test code = [facility] Tink [facility], 1538) [address]: Truck Driver Teamster/Techni bradford ID = [id number] for [place] LLIS, CHRISTINA POCT-GLUCOSE [id number] 07:48:39 Test Item Value Reference Range Interpretation Comments POC-GLUCOSE METER 134 mg/dL 70-110 H : TESTED A T [facility] 6720 (BEAKER) (test [facility] = [facility], 1538) [address]: Truck Driver Teamster/Techni bradford ID = [id number] for [place] LLIS, CHRISTINA BASIC METABOLIC [id number] 07:43:35 Test Item Value Reference Range Interpretation Comments SODIUM (BEAKER) 134 meq/L 136-145 L (test code = 381) POTASSIUM (BEAKER) 4.0 meq/L 3.5-5.1 (test code = 379) CHLORIDE (BEAKER) 107 meq/L 98-107 (test code = 382) CO2 (BEAKER) (test 22 meq/L 22-29 code = 355) BLOOD UREA NITROGEN 17 mg/dL 7-21 (BEAKER) (test code = 354) CREATININE (BEAKER) 0.81 mg/dL 0.57-1.25 (test code = 358) GLUCOSE RANDOM 170 mg/dL 70-105 H (BEAKER) (test code = 652) CALCIUM (BEAKER) 8.0 mg/dL 8.4-10.2 L (test code = 697) EGFR (BEAKER) (test 94 mL/min/1.73 ESTIMA CHILANGO GFR IS code = 1092) sq m NOT ACCURATE CREATININE CLEARANCE IN PREDICTING GLOMERULAR FILTRATION RATE . ESTIMATED GFR I S NOT APPLICABLE FOR DIALYSIS PATIEN TS. 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 - DBPOCT-GLUCOSE [id number] 21:33:23 Test Item Value Reference Range Interpretation Comments POC-GLUCOSE METER 250 mg/dL 70-110 H : TESTED A T [facility] 6720 (BEAKER) (test code = [facility] Karen [facility], 1538) 44[address]: Truck Driver Teamster/Techni bradford ID = [id number] for BARTOLO BURTON POCT-GLUCOSE [id number] 16:55:43 Test Item Value Reference Range Interpretation Comments POC-GLUCOSE METER 271 mg/dL 70-110 H : TESTED A T [facility] 6720 (BEAKER) (test code = [facility], 1538) [address]: Truck Driver Teamster/Techni bradford ID = [id number] for BRAD JACKSON CT, [id number] 12:53:00DR MINDIKOGLUReferring: Dr. Oneil Unlisted Reason for Exam - Click Yes and Enter Reason Below->YesUnlisted Reason for Exam- >persistent purulent drainage from abdomen post cholecystectomy site. concern for abscessIs this for enterography?->NoWill this procedure require oral contrast?->NoMARTIN LUT[facility]Name: RALF AGNES CHENW : 1950 Sex: MFINAL REPORT TECHNIQUE: CT of the abdomen and pelvis WITH intravenous contrast and WITHOUT oral contrast. Dose modulation, iterative reconstruction, and/or weight-based adjustment of the mA/kV was utilized to reduce the radiation dose to as low as reasonably achievable. INDICATION: Unlisted Reason for Exampersistent purulent drainage from abdomen post cholecystectomysite. concern for abscess. COMPARISON: CTs dating back to 03/20/2021. MRI from 01/04/2021. FINDINGS: LOWER THORAX: The bilateral patchy lung opacities were better evaluated on the prior chest CT but arestill present. Trace left pleural effusion. HEPATOBILIARY: Nodular, cirrhotic liver. No focal hepatic lesions. No biliary ductal dilatation. The retained portion of the gallbladder contains stones. SPLEEN: 17.2 cm splenomegaly.PANCREAS: No focal masses or ductal dilatation. ADRENALS: No adrenal nodules.KIDNEYS/URETERS: No hydronephrosis or masses. A left lower pole nonobstructing renal stone measures0.7 cm. A few nonobstructing right renal stones are punctate..PELVIC ORGANS/BLADDER: Unremarkable. PERITONEUM/RETROPERITONEUM: Small-volume ascites. There is a trace amount of fluid in the right retroperitoneum along the right psoas muscle. No free air.LYMPH NODES: No lymphadenopathy.VESSELS: The mainportal vein is patent and measures 1.5 cm in diameter. Small esophageal varices. Moderate sized infra renal shunt. There are either rectal varices or prominent hemorrhoids. GI TRACT: No distention or wall thickening. Marked diverticulosis of the sigmoid and left colon. BONES AND SOFT TISSUES: Moderate degenerative changes of the visualized spine. There is some focal subcutaneous fat stranding in the right lower quadrant. A tract in the subcutaneous tissue the right lower quadrant axial image 56 is the site of a prior drainage catheter which was located adjacent to the gallbladder. There is still a tract of mild fluid and gas in this region. An area of skin retraction of the right hemiabdomen on axial image 45 is at the prior incision from a cholecystectomy. IMPRESSION: 1.In the area of the prior dr roth catheter, there is still a tract of gas and air and immediately adjacent to the retained portion of the gallbladder. There is an additional, subcutaneous tract in the right abdomen with some theprior catheter, and there is skin retraction at the scar for the cholecystectomy. 2.Cirrhosis with sequelae of portal hypertension including splenomegaly, small right ascites, and small esophageal varices. 3.There are either prominent hemorrhoids or rectal varices. 4.Bilateral multiple renal stones measure up to 0.7 cm. 5.The bilateral patchy lung opacities were better evaluated on the prior chest CT. Signed: Rosalio Guerrero Verified Date/Time: 10/28/2021 12:53:10 Reading Location: [facility] Diagnostic Imaging Reading Room - [place] [address] 1129 POCT-GLUCOSE [id number] 11:30:38 Test Item Value Reference Range Interpretation Comments POC-GLUCOSE METER 157 mg/dL 70-110 H : TESTED A T [facility] 6720 (BEAKER) (test code = [place], 1538) [address]: Truck Driver Teamster/Techni bradford ID = [id number] for BRAD JACKSON U/S, [id number] 10:08:00DR MINDIKOGLUReferring: Dr. Oneil Labs to be ordered:->Body Fluid Culture (w/Gram Stain, C\\T\\S)Labs to be ordered:- >CytologyLabs to be ordered:->Cell CountLabs to be ordered:->Glucose+LDH+ProteinLabs to be ordered:->Anaerobic Culture (w/Gram Stain)Labs to be ordered:->Fungal Culture with StainReason for exam:->sepsisMARTIN LUTHER HOSPITAL MEDICAL [facility]ENTERName: AGNES ARAMBULA : 1950 Sex: MFINAL REPORT Ultrasound guided paracentesis, 10/27/2021. Clinical History: Ascites. Sedation: None. Lithographic Camera Operator: Shanice. Store Worker: None. Estimated Blood Loss: < 1 cc. Specimen: 3700 cc of clear yellow fluid, samples sent to laboratory. Technique: Informed consent was obtained. The risks of pain, bleeding, infection, bowel perforation, injury to adjacent structures, and adverse medication reactions were discussed with the patient. Afterinformed consent was obtained, the patient's abdomen was scanned. The left lower quadrant of the abdomen was selected for paracentesis. After the largest fluid pocket area was marked, and the anterior abdominal wall was evaluated with color Doppler to exclude presence of blood vessels traversing thearea, the skin was prepped and draped in the usual sterile manner. After local anesthesia was achieved with 1% lidocaine, a 5 Dutch one-step catheter was advanced into the peritoneal cavity under ultrasound guidance. After completion of drainage, the catheter was removed. There was no evidence of com plication. Patient Disposition: The patient was discharged from the ultrasound department after theparacentesis, in good condition. Impression:Successful ultrasound guided paracentesis. Signed: Jerry Barbozaort Verified Date/Time: 10/28/2021 10:08:15 Reading Location: [address] BodyReading Room EIN, BODY [id number] 09:35:37 Test Item Value Reference Range Interpretation Comments PROTEIN FLUID (BEAKER) (test code = < g/dL 579) Absence of reference range indicates that normals have not been defined.Assay performance has not been validated for this type of specimen.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 - DSENSONLACTATE DEHYDROGENASE (LDH), BODY [id number] 09:35:10 Test Item Value Reference Range Interpretation Comments LACTATE DEHYDROGENASE FLUID (BEAKER) 32 U/L (test code = 634) Absence of reference range indicates that normals have not been defined.Assay performance has not been validated for this type of specimen.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 - DSENSONGLUCOSE, BODY [id number] 09:31:27 Test Item Value Reference Range Interpretation Comments GLUCOSE, BODY FLUID (BEAKER) (test 227 mg/dL code = 1528) Absence of reference range indicates that normals have not been defined.Assay performance has not been validated for this type of specimen.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 - DSENSONHEPATIC FUNCTION [id number] 09:17:00 Test Item Value Reference Range Interpretation Comments TOTAL PROTEIN (BEAKER) (test code = 5.5 gm/dL 6.0-8.3 L 770) ALBUMIN (BEAKER) (test code = 1145) 2.3 g/dL 3.5-5.0 L BILIRUBIN TOTAL (BEAKER) (test code 1.1 mg/dL 0.2-1.2 = 377) BILIRUBIN DIRECT (BEAKER) (test 0.6 mg/dL 0.1-0.5 H code = 706) ALKALINE PHOSPHATASE (BEAKER) (test 67 U/L 40-150 code = 346) AST (SGOT) (BEAKER) (test code = 26 U/L 5-34 353) ALT (SGPT) (BEAKER) (test code = 26 U/L 6-55 347) 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 - [place] GPOCT-GLUCOSE [id number] 08:07:33 Test Item Value Reference Range Interpretation Comments POC-GLUCOSE METER 170 mg/dL 70-110 H : TESTED A T [facility] 6720 (BEAKER) (test code = [facility] [place], 1538) 78[address]: Truck Driver Teamster/Techni bradford ID = [id number] for [place] LLIS, CHRISTINA BASIC METABOLIC [id number] 04:19:19 Test Item Value Reference Range Interpretation Comments SODIUM (BEAKER) 138 meq/L 136-145 (test code = 381) POTASSIUM (BEAKER) 4.1 meq/L 3.5-5.1 (test code = 379) CHLORIDE (BEAKER) 109 meq/L 98-107 H (test code = 382) CO2 (BEAKER) (test 25 meq/L 22-29 code = 355) BLOOD UREA NITROGEN 17 mg/dL 7-21 (BEAKER) (test code = 354) CREATININE (BEAKER) 0.84 mg/dL 0.57-1.25 (test code = 358) GLUCOSE RANDOM 208 mg/dL 70-105 H (BEAKER) (test code = 652) CALCIUM (BEAKER) 8.5 mg/dL 8.4-10.2 (test code = 697) EGFR (BEAKER) (test 91 mL/min/1.73 ESTIMA CHILANGO GFR IS code = 1092) sq m NOT ACCURATE CREATININE CLEARANCE IN PREDICTING GLOMERULAR FILTRATION RATE . ESTIMATED GFR I S NOT APPLICABLE FOR DIALYSIS PATIEN TS. 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 - [place] GPOCT-GLUCOSE [id number] 20:56:32 Test Item Value Reference Range Interpretation Comments POC-GLUCOSE METER 211 mg/dL 70-110 H : TESTED A T [facility] 6720 (BEAKER) (test code = HANNAH Jones [facility], 1538) [address]: Truck Driver Teamster/Techni bradford ID = [id number] for BARTOLO BURTON BODY FLUID CELL COUNT WITH [id number] 18:53:43 Test Item Value Reference Range Interpretation Comments APPEARANCE FLUID Clear Clear (BEAKER) (test code = 510) COLOR FLUID (BEAKER) Yellow Colorless, Straw A (test code = 511) RBC FLUID (BEAKER) 186 /cu mm See_Comment H [Automat ed message] (test code = 513) The system which generated this result transmitted ref erence range: <=1. The reference range was not used to int erpret this result as normal/abnormal . ADJUSTED WBC FLUID 85 /cu mm See_Comment H [Automat ed message] (BEAKER) (test code = The sy stem which 2957) generated this result transmitted ref erence range: <=5. The reference range was not used to int erpret this result as normal/abnormal . LINING CELLS (BEAKER) 0 /cu mm See_Comment [Auto mated message] (test code = 1590) The syste m which generated this result transmitted ref erence range: <=1. The reference range was not used to int erpret this result as normal/abnormal . NEUTROPHILS FLUID 6 % (BEAKER) (test code = 1656) LYMPHS FLUID (BEAKER) 7 % (test code = 488) MONO/MACROPHAGE FLUID 87 % (BEAKER) (test code = 489) EOSINOPHILS FLUID 0 % (BEAKER) (test code = 491) BASO FLUID (BEAKER) 0 % (test code = 492) CONTAINER BODY FLUID EDTA Tube (BEAKER) (test code = 2873) URINALYSIS W/ REFLEX URINE [id number] 14:16:50 Test Item Value Reference Range Interpretation Comments COLOR (BEAKER) (test code = 470) Yellow CLARITY (BEAKER) (test code = 469) Clear SPECIFIC GRAVITY UA (BEAKER) (test 1.030 1.001-1.035 code = 468) PH UA (BEAKER) (test code = 467) 5.5 5.0-8.0 PROTEIN UA (BEAKER) (test code = 20 mg/dL Negative A 464) GLUCOSE UA (BEAKER) (test code = Negative Negative 365) KETONES UA (BEAKER) (test code = Negative Negative 371) BILIRUBIN UA (BEAKER) (test code = Negative Negative 462) BLOOD UA (BEAKER) (test code = 461) Negative Negative NITRITE UA (BEAKER) (test code = Negative Negative 465) LEUKOCYTE ESTERASE UA (BEAKER) Negative Negative (test code = 466) UROBILINOGEN UA (BEAKER) (test code 0.2 mg/dL 0.2-1.0 = 463) RBC UA (BEAKER) (test code = 519) < /HPF WBC UA (BEAKER) (test code = 520) 3 /HPF BACTERIA (BEAKER) (test code = 517) None Seen MUCUS (BEAKER) (test code = 1574) Rare CRYSTALS, URINE (BEAKER) (test code None Seen = 1521) SOURCE(BEAKER) (test code = 2795) 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 - [auto]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 - techPOCT-GLUCOSE [id number] 10:57:17 Test Item Value Reference Range Interpretation Comments POC-GLUCOSE METER 222 mg/dL 70-110 H : TESTED A T [facility] 6720 (BEAKER) (test code = HANNAH Jones [facility], 1538) [address]: Truck Driver Teamster/Techni bradford ID = [id number] for MARRY RANDLE TTCriss SARS-COV2/RT-PCR ([facility])2021-10-27 10:11:09 Test Item Value Reference Range Interpretation Comments SARS-COV2/RT-PCR (test Negative Not Detected, Negative, code = 3321198) See external report for linked test SARS-COV-2 PERFORMING LAB [facility] BHAVNA (test code = 5291092) Negative result for this test determines that SARS-CoV-2 RNA was not present in the specimen above the Limit of Detection (LOD). However, Negative results do not preclude SARS-CoV-2 infection and should not be used as the sole basis for treatment or patient management decisions. Negative results mustbe combined with clinical observations, patient history, and epidemiological information. A false negative result may occur if a specimen is improperly collected, transported or handled. A false negative result should be considered if patient's recent exposures or clinical presentation indicate that COVID-19 (SARS-CoV-2) is likely and diagnostic tests for other causes of illness are negative. Re-testing should be considered in cases of suspected false negatives.The limit of detection for this assay is 800 copies/mL.This SARS CoV-2 test is a real-time RT-PCR test intended for the qualitative detection of nucleic acid from SARS-CoV-2 in a nasopharyngeal swab specimen collected from individuals suspected of COVID-19 by their healthcare provider.This test has not been Food and Drug Administration (FDA) cleared or approved. This is a modified version of an approved Emergency Use Authorization (EUA) and is in the process of review by the FDA. Once authorized by the FDA, the issued EUA will be effective until the declaration that circumstances exist justifying the authorization of the emergency use of in vitro diagnostic tests for detection and/or diagnosis of COVID-19 is terminated under Section 564(b)(2) of the Act or the EUA is revoked under Section 564(g) of the Act.Fact Sheet for Healthcare Providers:https://www.[employer]/sites/default/files/product/documents/Fact_Shee l_ET_Fgxykocye_Hoxr_QONX-WaN-4.pdfFact Sheet for Healthcare Patients:https://www.[employer]/sites/default/files/product/ documents/Chcc_Zojrf_Xcipzhpl_Sfsl_GHUO-IhO-7.pdfPerforming Laboratory:[place] [address], [place] [address]KPFR-EPUCVZM METER 2021-10-27 08:44:00 Test Item Value Reference Range Interpretation Comments POC-GLUCOSE METER 164 mg/dL 70-110 H : TESTED A T [facility] 6720 (SEAN) (test code = HANNAH Karen [facility], 1538) 307[address]: Truck Driver Teamster/Techni bradford ID = [id number] for Nyla Figueroa HIGH SENSITIVITY TROPONIN [id number] 07:43:21 Test Item Value Reference Range Interpretation Comments HIGH SENSITIVITY 934 pg/ml See_Comment HH [Automated message] TROPONIN I (test code The stem which = [id number]) generated this result transmitted ref erence range: <=35. Th e reference range was not used to int erpret this result as normal/abnormal . 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 - PIAYA LThe SWITCH CREW SUPERVISOR STAT High Sensitivity Troponin-I results should be used in conjunction with other diagnostic information such as ECG, clinical observations and information, and patient symptoms to aid in the diagnosis of DE.[id number] 07:17:41 Test Item Value Reference Range Interpretation Comments MAGNESIUM (BEAKER) (test code = 1.4 mg/dL 1.6-2.6 L 627) 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 Boo GROSSOMPREHENSIVE METABOLIC [id number] 07:17:40 Test Item Value Reference Range Interpretation Comments TOTAL PROTEIN 5.6 gm/dL 6.0-8.3 L (BEAKER) (test code = 770) ALBUMIN (BEAKER) 2.3 g/dL 3.5-5.0 L (test code = 1145) ALKALINE PHOSPHATASE 66 U/L 40-150 (BEAKER) (test code = 346) BILIRUBIN TOTAL 1.5 mg/dL 0.2-1.2 H (BEAKER) (test code = 377) SODIUM (BEAKER) (test 138 meq/L 136-145 code = 381) POTASSIUM (BEAKER) 4.5 meq/L 3.5-5.1 (test code = 379) CHLORIDE (BEAKER) 109 meq/L 98-107 H (test code = 382) CO2 (BEAKER) (test 25 meq/L 22-29 code = 355) BLOOD UREA NITROGEN 19 mg/dL 7-21 (BEAKER) (test code = 354) CREATININE (BEAKER) 0.70 mg/dL 0.57-1.25 (test code = 358) GLUCOSE RANDOM 140 mg/dL 70-105 H (BEAKER) (test code = 652) CALCIUM (BEAKER) 8.7 mg/dL 8.4-10.2 (test code = 697) AST (SGOT) (BEAKER) 29 U/L 5-34 (test code = 353) ALT (SGPT) (BEAKER) 28 U/L 6-55 (test code = 347) EGFR (BEAKER) (test 112 ESTIMATE D GFR IS code = 1092) mL/min/1.73 sq NOT ACCURA TE m CREATININE CLEARANCE IN PREDICTING GLOMERULAR FILTRATION RATE . ESTIMATED GFR I S NOT APPLICABLE FOR DIALYSIS PATIEN TS. 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 - KJ [id number] 07:00:38 Test Item Value Reference Range Interpretation Comments AMMONIA (BEAKER) (test code = 348) 66 mol/L 18-72 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 - KJ LCBC W/PLT COUNT & AUTO [id number] 06:06:22 Test Item Value Reference Range Interpretation Comments WHITE BLOOD CELL COUNT 2.8 K/ L 3.5-10.5 L (BEAKER) (test code = 775) RED BLOOD CELL COUNT 4.32 M/ L 4.63-6.08 L (BEAKER) (test code = 761) HEMOGLOBIN (BEAKER) 9.6 GM/DL 13.7-17.5 L (test code = 410) HEMATOCRIT (BEAKER) 33.0 % 40.1-51.0 L (test code = 411) MEAN CORPUSCULAR VOLUME 76.4 fL 79.0-92.2 L (BEAKER) (test code = 753) MEAN CORPUSCULAR 22.2 pg 25.7-32.2 L HEMOGLOBIN (BEAKER) (test code = 751) MEAN CORPUSCULAR 29.1 GM/DL 32.3-36.5 L HEMOGLOBIN CONC (BEAKER) (test code = 752) RED CELL DISTRIBUTION 20.1 % 11.6-14.4 H WIDTH (BEAKER) (test code = 412) PLATELET COUNT (BEAKER) 46 K/CU MM 150-450 L (test code = 756) MEAN PLATELET VOLUME Unable to report due (BEAKER) (test code = to abn ormal Platelet 754) population distribution. NUCLEATED RED BLOOD 0 /100 WBC 0-0 CELLS (BEAKER) (test code = 413) NEUTROPHILS RELATIVE 61 % PERCENT (BEAKER) (test code = 429) LYMPHOCYTES RELATIVE 21 % PERCENT (BEAKER) (test code = 430) MONOCYTES RELATIVE 12 % PERCENT (BEAKER) (test code = 431) EOSINOPHILS RELATIVE 6 % PERCENT (BEAKER) (test code = 432) BASOPHILS RELATIVE 0 % PERCENT (BEAKER) (test code = 437) NEUTROPHILS ABSOLUTE 1.70 K/ L 1.78-5.38 L COUNT (BEAKER) (test code = 670) LYMPHOCYTES ABSOLUTE 0.58 K/ L 1.32-3.57 L COUNT (BEAKER) (test code = 414) MONOCYTES ABSOLUTE 0.32 K/ L 0.30-0.82 COUNT (BEAKER) (test code = 415) EOSINOPHILS ABSOLUTE 0.16 K/ L 0.04-0.54 COUNT (BEAKER) (test code = 416) BASOPHILS ABSOLUTE 0.01 K/ L 0.01-0.08 COUNT (SEAN) (test code = 417) IMMATURE 0 % 0-1 GRANULOCYTES-RELATIVE PERCENT (ARTURAKER) (test code = 2801) HIGH SENSITIVITY TROPONIN [id number] 00:03:31 Test Item Value Reference Range Interpretation Comments HIGH SENSITIVITY 897 pg/ml See_Comment HH [Automated message] TROPONIN I (test code The sy stem which = [id number]) generated this result transmitted ref erence range: <=35. Th e reference range was not used to int erpret this result as normal/abnormal . 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 - BSThe SWITCH CREW SUPERVISOR STAT High Sensitivity Troponin-I results should be used in conjunctionwith other diagnostic information such as ECG, clinical observations and information, and patient symptoms to aid in the diagnosis of DE.LACTIC ACID, [id number] 22:50:29 Test Item Value Reference Range Interpretation Comments LACTATE BLOOD VENOUS 1.60 mmol/L 0.50-2.20 Specime n slightly (2) (SEAN) (test hemolyzed code = 2872) 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 - BSHIGH SENSITIVITY TROPONIN [id number] 20:16:55 Test Item Value Reference Range Interpretation Comments HIGH SENSITIVITY 809 pg/ml See_Comment HH [Automated message] TROPONIN I (test code The sy stem which = [id number]) generated this result transmitted ref erence range: <=35. Th e reference range was not used to int erpret this result as normal/abnormal . 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 - BSThe SWITCH CREW SUPERVISOR STAT High Sensitivity Troponin-I results should be used in conjunctionwith other diagnostic information such as ECG, clinical observations and information, and patient symptoms to aid in the diagnosis of DE.B-TYPE NATRIURETIC FACTOR (BNP)2021-10-26 20:09:24 Test Item Value Reference Range Interpretation Comments B-TYPE NATRIURETIC PEPTIDE (SEAN) 15 pg/mL 0-100 (test code = 700) 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 - BSRAD, CHEST, 1 VIEW, NON [id number] 19:14:00DR MINDIKOGLUReferring: Dr. Oneil Reason for exam:->sobShould this be performed at the bedside?->Yes [facility] : 1950 Sex: MFINAL REPORT Chest, 1 view. History: Shortness of breath Comparison: Plain radiograph the chest dated 10/17/2021. IMPRESSION: Low lung volumes limits evaluation.Cardiomediastinal silhouette within normal limits for technique. Patchy consolidative airspace opacities in the bilateral lungs, predominantly peripherally, more consolidative in the left upper lung when compared to prior may be related to differences in technique however findings could represent infection superimposed on interstitial lung disease. No pleural effusion or pneumothorax. No acute osseous abnormality. Signed: Santos Benavidez Verified Date/Time: 10/26/2021 19:14:46 Electronicallysigned by: SANTOS BENAVIDEZ MD on 10/26/2021 07:14 PMCOMPREHENSIVE METABOLIC [id number] 17:45:58 Test Item Value Reference Range Interpretation Comments TOTAL PROTEIN 6.7 gm/dL 6.0-8.3 (BEAKER) (test code = 770) ALBUMIN (BEAKER) 2.8 g/dL 3.5-5.0 L (test code = 1145) ALKALINE PHOSPHATASE 79 U/L 40-150 (BEAKER) (test code = 346) BILIRUBIN TOTAL 1.7 mg/dL 0.2-1.2 H (BEAKER) (test code = 377) SODIUM (BEAKER) (test 136 meq/L 136-145 code = 381) POTASSIUM (BEAKER) 5.1 meq/L 3.5-5.1 (test code = 379) CHLORIDE (BEAKER) 107 meq/L 98-107 (test code = 382) CO2 (BEAKER) (test 27 meq/L 22-29 code = 355) BLOOD UREA NITROGEN 24 mg/dL 7-21 H (BEAKER) (test code = 354) CREATININE (BEAKER) 0.86 mg/dL 0.57-1.25 (test code = 358) GLUCOSE RANDOM 212 mg/dL 70-105 H (BEAKER) (test code = 652) CALCIUM (BEAKER) 9.4 mg/dL 8.4-10.2 (test code = 697) AST (SGOT) (BEAKER) 36 U/L 5-34 H (test code = 353) ALT (SGPT) (BEAKER) 35 U/L 6-55 (test code = 347) EGFR (BEAKER) (test 88 mL/min/1.73 ESTIMA CHILANGO GFR IS code = 1092) sq m NOT ACCURATE CREATININE CLEARANCE IN PREDICTING GLOMERULAR FILTRATION RATE . ESTIMATED GFR I S NOT APPLICABLE FOR DIALYSIS PATIEN TS. 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 - BSLACTIC ACID, [id number] 17:39:58 Test Item Value Reference Range Interpretation Comments LACTATE BLOOD VENOUS 2.34 mmol/L 0.50-2.20 H Specime n moderately (2) (BEAKER) (test hemolyzed code = 1372) 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 - [id number] 17:22:14 Test Item Value Reference Range Interpretation Comments PARTIAL THROMBOPLASTIN TIME 31.0 seconds 22.5-36.0 (BEAKER) (test code = 760) PROTHROMBIN [id number] 17:21:32 Test Item Value Reference Range Interpretation Comments PROTIME (BEAKER) 15.9 seconds 11.9-14.2 H (test code = 759) INR (BEAKER) (test 1.30 See_Comment [Automat ed message] code = 370) The system [employer]ocad[employer]ore generated this result transmitted ref erence range: <=5.90. The reference range was not used to int erpret this result as normal/abnormal . RECOMMENDED COUMADIN/WARFARIN INR THERAPY RANGESSTANDARD DOSE: 2.0 - 3.0 Includes: PROPHYLAXIS forvenous thrombosis, systemic embolization; TREATMENT for venous thrombosis and/or pulmonary embolus.HIGH RISK: Target INR is 2.5-3.5 for patients with mechanical heart valves.CBC W/PLT COUNT & AUTO DIFFERENTIAL 2021-10-26 17:20:32 Test Item Value Reference Range Interpretation Comments WHITE BLOOD CELL COUNT 5.1 K/ L 3.5-10.5 (BEAKER) (test code = 775) RED BLOOD CELL COUNT 5.23 M/ L 4.63-6.08 (BEAKER) (test code = 761) HEMOGLOBIN (BEAKER) 11.5 GM/DL 13.7-17.5 L (test code = 410) HEMATOCRIT (BEAKER) 39.8 % 40.1-51.0 L (test code = 411) MEAN CORPUSCULAR VOLUME 76.1 fL 79.0-92.2 L (BEAKER) (test code = 753) MEAN CORPUSCULAR 22.0 pg 25.7-32.2 L HEMOGLOBIN (BEAKER) (test code = 751) MEAN CORPUSCULAR 28.9 GM/DL 32.3-36.5 L HEMOGLOBIN CONC (BEAKER) (test code = 752) RED CELL DISTRIBUTION 20.2 % 11.6-14.4 H WIDTH (BEAKER) (test code = 412) PLATELET COUNT (BEAKER) 72 K/CU MM 150-450 L (test code = 756) MEAN PLATELET VOLUME Unable to report due (BEAKER) (test code = to abn ormal Platelet 754) population distribution. NUCLEATED RED BLOOD 0 /100 WBC 0-0 CELLS (BEAKER) (test code = 413) NEUTROPHILS RELATIVE 69 % PERCENT (BEAKER) (test code = 429) LYMPHOCYTES RELATIVE 15 % PERCENT (BEAKER) (test code = 430) MONOCYTES RELATIVE 11 % PERCENT (BEAKER) (test code = 431) EOSINOPHILS RELATIVE 5 % PERCENT (BEAKER) (test code = 432) BASOPHILS RELATIVE 0 % PERCENT (BEAKER) (test code = 437) NEUTROPHILS ABSOLUTE 3.49 K/ L 1.78-5.38 COUNT (BEAKER) (test code = 670) LYMPHOCYTES ABSOLUTE 0.76 K/ L 1.32-3.57 L COUNT (BEAKER) (test code = 414) MONOCYTES ABSOLUTE 0.55 K/ L 0.30-0.82 COUNT (BEAKER) (test code = 415) EOSINOPHILS ABSOLUTE 0.24 K/ L 0.04-0.54 COUNT (BEAKER) (test code = 416) BASOPHILS ABSOLUTE 0.01 K/ L 0.01-0.08 COUNT (BEAKER) (test code = 417) IMMATURE 0 % 0-1 GRANULOCYTES-RELATIVE PERCENT (BEAKER) (test code = 2801) POC-Glucose [id number] 17:14:09 Test Item Value Reference Range Interpretation Comments POC-Glucose Meter (test 192 mg/dL 70-110 H : TE STED AT [facility] code = 1538) 67[address] [facility], 770 30: Truck Driver Teamster/Techni bradford ID = [id number] for BEN CASISDY Lab Interpretation (test Abnormal code = 28743-7) [facility] [id number] 17:14:09 Test Item Value Reference Range Interpretation Comments POC-GLUCOSE METER 192 mg/dL 70-110 H : TESTED A T [facility] 6720 (BEAKER) (test code = [facility], 1538) [address]: Truck Driver Teamster/Techni bradford ID = [id number] for BEN NOVAK POCT-GLUCOSE [id number] 12:42:02 Test Item Value Reference Range Interpretation Comments POC-GLUCOSE METER 230 mg/dL 70-110 H : TESTED A T [facility] 6720 (BEAKER) (test code = [facility], 1538) [address]: Truck Driver Teamster/Techni bradford ID = [id number] for BEN NOVAK POCT-GLUCOSE [id number] 08:56:42 Test Item Value Reference Range Interpretation Comments POC-GLUCOSE METER 210 mg/dL 70-110 H : TESTED A T [facility] 6720 (BEAKER) (test code = [facility], 1538) [address]: Truck Driver Teamster/Techni bradford ID = [id number] for Mark kimble (contract), Mar ie Marry Comprehensive metabolic [id number] 06:15:07 Test Item Value Reference Range Interpretation Comments Protein, Total (test 5.2 See_Comment L Specime n slightly code = 2885-2) hemolyzed [Automated message] The system which generated this result transmit chilango reference range : 6.0 - 8.3 gm/dL . The reference range was not u sed to interpret th is result as normal/abnormal . Albumin (test code = 2.2 g/dL 3.5-5.0 L Specime n slightly 88882-9) hemolyzed Alkaline Phosphatase 59 U/L 40-150 (test code = 6768-6) Total Bilirubin (test 1.2 mg/dL 0.2-1.2 Specim en slightly code = 1974-2) hemolyzed Sodium (test code = 133 meq/L 136-145 L 2951-2) Potassium (test code 4.4 meq/L 3.5-5.1 Specime n slightly = 2823-3) hemolyzed Chloride (test code = 108 meq/L 98-107 H 2074-0) CO2 (test code = 21 meq/L 22-29 L 8-9) BUN (test code = 34 mg/dL 7-21 H 3094-0) Creatinine (test code 1.02 mg/dL 0.57-1.25 Specim en slightly = 2160-0) hemolyzed Glucose (test code = 250 mg/dL 70-105 H 2345-7) Calcium (test code = 7.9 mg/dL 8.4-10.2 L 50379-8) AST (test code = 39 U/L 5-34 H Specimen sl ightly 1920-8) hemolyzed ALT (test code = 28 U/L 6-55 Specimen sl ightly 1742-6) hemolyzed EGFR (test code = 72 mL/min/1.73 [place] [address]-8) NOT ACCURATE CREATININE CLEARANCE IN PREDICTING GLOMERULAR FILTRATION RATE . ESTIMATED GFR I S NOT APPLICABLE FOR DIALYSIS PATIEN TS. SRAVANTHI (test code = SRAVANTHI) 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 - PIAYA L Lab Interpretation Abnormal (test code = 93412-9) [facility] [id number] 06:15:07 Test Item Value Reference Range Interpretation Comments TOTAL PROTEIN 5.2 gm/dL 6.0-8.3 L Specimen sligh tly (BEAKER) (test code = hemoly zed 770) ALBUMIN (BEAKER) 2.2 g/dL 3.5-5.0 L Specimen sl ightly (test code = 1145) hemolyzed ALKALINE PHOSPHATASE 59 U/L 40-150 (BEAKER) (test code = 346) BILIRUBIN TOTAL 1.2 mg/dL 0.2-1.2 Specimen sli ghtly (BEAKER) (test code = hemoly zed 377) SODIUM (BEAKER) (test 133 meq/L 136-145 L code = 381) POTASSIUM (BEAKER) 4.4 meq/L 3.5-5.1 Specimen slightly (test code = 379) hemolyzed CHLORIDE (BEAKER) 108 meq/L 98-107 H (test code = 382) CO2 (BEAKER) (test 21 meq/L 22-29 L code = 355) BLOOD UREA NITROGEN 34 mg/dL 7-21 H (BEAKER) (test code = 354) CREATININE (BEAKER) 1.02 mg/dL 0.57-1.25 Specimen slightly (test code = 358) hemolyzed GLUCOSE RANDOM 250 mg/dL 70-105 H (BEAKER) (test code = 652) CALCIUM (BEAKER) 7.9 mg/dL 8.4-10.2 L (test code = 697) AST (SGOT) (BEAKER) 39 U/L 5-34 H Specimen slightly (test code = 353) hemolyzed ALT (SGPT) (BEAKER) 28 U/L 6-55 Specimen slightly (test code = 347) hemolyzed EGFR (BEAKER) (test 72 mL/min/1.73 ESTIMA CHILANGO GFR IS code = 1092) sq m NOT ACCURATE CREATININE CLEARANCE IN PREDICTING GLOMERULAR FILTRATION RATE . ESTIMATED GFR I S NOT APPLICABLE FOR DIALYSIS PATIEN TS. 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 - PIAYA LCBC with platelet count + automated [id number] 05:20:22 Test Item Value Reference Range Interpretation Comments WBC (test code = 6690-2) 9.3 See_Comment [A utomated message] The system [employer]ocad[employer]ore generated this result transmitted ref erence range: 3.5 - 10 .5 K/L. The refe rence range was not u sed to interpret this result as normal/abnor mal. RBC (test code = 789-8) 4.09 See_Comment L [Au tomated message] The system [employer]ocad[employer]ore generated this result transmitted ref erence range: 4.63 - 6 .08 M/L. The refe rence range was not u sed to interpret this result as normal/abnor mal. MCHC (test code = 786-4) 29.3 See_Comment L [A utomated message] The system [employer] generated this result transmitted ref erence range: 32.3 - 3 6.5 GM/DL. The refe rence range was not u sed to interpret this result as normal/abnor mal. Hematocrit (test code = 30.7 % 40.1-51.0 L 4544-3) MCV (test code = 787-2) 75.1 fL 79.0-92.2 L MCH (test code = 785-6) 22.0 pg 25.7-32.2 L RDW (test code = 788-0) 18.0 % 11.6-14.4 H Platelets (test code = 70 See_Comment L [Aut omated message] 777-3) The system [employer]ocad[employer]ore generated this result transmitted ref erence range: 150 - 45 0 K/CU MM. The referen ce range was not u sed to interpret this result as normal/abnor mal. MPV (test code = [place] [address]-8) to abnormal [place] telet population distribution. nRBC (test code = 413) 0 See_Comment [Aut omated message] The system [employer]ocad[employer]ore generated this result transmitted ref erence range: 0 - 0 /1 00 WBC. The refere nce range was not u sed to interpret this result as normal/abnor mal. % Neutros (test code = 92 % 429) % Lymphs (test code = 3 % 430) % Monos (test code = 5 % 431) % Eos (test code = 432) 0 % % Baso (test code = 437) 0 % # Neutros (test code = 8.50 See_Comment H [Aut omated message] 670) The system [employer]ocadostore generated this result transmitted ref erence range: 1.78 - 5 .38 K/L. The refe rence range was not u sed to interpret this result as normal/abnor mal. # Lymphs (test code = 0.27 See_Comment L [Auto mated message] 414) The system avocadostore generated this result transmitted ref erence range: 1.32 - 3 .57 K/L. The refe rence range was not u sed to interpret this result as normal/abnor mal. # Monos (test code = 0.44 See_Comment [Autom ated message] 415) The system [employer]ocadost[employer] generated this result transmitted ref erence range: 0.30 - 0 .82 K/L. The refe rence range was not u sed to interpret this result as normal/abnor mal. # Eos (test code = 416) 0.00 See_Comment L [Au tomated message] The system [employer] generated this result transmitted ref erence range: 0.04 - 0 .54 K/L. The refe rence range was not u sed to interpret this result as normal/abnor mal. # Baso (test code = 417) 0.01 See_Comment [A utomated message] The system [employer] generated this result transmitted ref erence range: 0.01 - 0 .08 K/L. The refe rence range was not u sed to interpret this result as normal/abnor mal. Immature 0 % 0-1 Granulocytes-Relative (test code = 2801) Lab Interpretation (test Abnormal code = 44334-2) [facility] W/PLT COUNT & AUTO [id number] 05:20:22 Test Item Value Reference Range Interpretation Comments WHITE BLOOD CELL COUNT 9.3 K/ L 3.5-10.5 (BEAKER) (test code = 775) RED BLOOD CELL COUNT 4.09 M/ L 4.63-6.08 L (BEAKER) (test code = 761) HEMOGLOBIN (BEAKER) 9.0 GM/DL 13.7-17.5 L (test code = 410) HEMATOCRIT (BEAKER) 30.7 % 40.1-51.0 L (test code = 411) MEAN CORPUSCULAR VOLUME 75.1 fL 79.0-92.2 L (BEAKER) (test code = 753) MEAN CORPUSCULAR 22.0 pg 25.7-32.2 L HEMOGLOBIN (BEAKER) (test code = 751) MEAN CORPUSCULAR 29.3 GM/DL 32.3-36.5 L HEMOGLOBIN CONC (BEAKER) (test code = 752) RED CELL DISTRIBUTION 18.0 % 11.6-14.4 H WIDTH (BEAKER) (test code = 412) PLATELET COUNT (BEAKER) 70 K/CU MM 150-450 L (test code = 756) MEAN PLATELET VOLUME Unable to report due (BEAKER) (test code = to abn ormal Platelet 754) population distribution. NUCLEATED RED BLOOD 0 /100 WBC 0-0 CELLS (BEAKER) (test code = 413) NEUTROPHILS RELATIVE 92 % PERCENT (BEAKER) (test code = 429) LYMPHOCYTES RELATIVE 3 % PERCENT (BEAKER) (test code = 430) MONOCYTES RELATIVE 5 % PERCENT (BEAKER) (test code = 431) EOSINOPHILS RELATIVE 0 % PERCENT (BEAKER) (test code = 432) BASOPHILS RELATIVE 0 % PERCENT (BEAKER) (test code = 437) NEUTROPHILS ABSOLUTE 8.50 K/ L 1.78-5.38 H COUNT (BEAKER) (test code = 670) LYMPHOCYTES ABSOLUTE 0.27 K/ L 1.32-3.57 L COUNT (BEAKER) (test code = 414) MONOCYTES ABSOLUTE 0.44 K/ L 0.30-0.82 COUNT (BEAKER) (test code = 415) EOSINOPHILS ABSOLUTE 0.00 K/ L 0.04-0.54 L COUNT (BEAKER) (test code = 416) BASOPHILS ABSOLUTE 0.01 K/ L 0.01-0.08 COUNT (BEAKER) (test code = 417) IMMATURE 0 % 0-1 GRANULOCYTES-RELATIVE PERCENT (BEAKER) (test code = 2801) POCT-GLUCOSE [id number] 21:53:47 Test Item Value Reference Range Interpretation Comments POC-GLUCOSE METER 249 mg/dL 70-110 H : TESTED A T [facility] 6720 (BEAKER) (test code = [facility], 1538) 81364: Truck Driver Teamster/Techni bradford ID = [id number] for Nathan jenae Rickey POCT-GLUCOSE [id number] 20:32:31 Test Item Value Reference Range Interpretation Comments POC-GLUCOSE METER 254 mg/dL 70-110 H : TESTED A T [facility] 6720 (BEAKER) (test code = [facility], 1538) 14215: Truck Driver Teamster/Techni bradford ID = [id number] for Poonam Thacker (contrac t) POCT-GLUCOSE [id number] 17:48:07 Test Item Value Reference Range Interpretation Comments POC-GLUCOSE METER 289 mg/dL 70-110 H : TESTED A T [facility] 6720 (BEAKER) (test code = [facility], 1538) 84318: Truck Driver Teamster/Techni bradford ID = [id number] for Ti artur (contract)Ana POCT-GLUCOSE [id number] 13:00:33 Test Item Value Reference Range Interpretation Comments POC-GLUCOSE METER 217 mg/dL 70-110 H : TESTED A T [facility] 6720 (BEAKER) (test code = [facility] [place], 1538) 10753: Truck Driver Teamster/Techni bradford ID = [id number] for Ti be (contract), Mar ie Marry POCT-GLUCOSE [id number] 09:11:27 Test Item Value Reference Range Interpretation Comments POC-GLUCOSE METER 247 mg/dL 70-110 H : TESTED A T [facility] 6720 (BEAKER) (test code = [facility] [place], 1538) 81313: Truck Driver Teamster/Techni bradford ID = [id number] for Ti be (contract), Mar ie Marry [id number] 05:12:51 Test Item Value Reference Range Interpretation Comments Magnesium (test code = 1.9 mg/dL 1.6-2.6 34170-4) SRAVANTHI (test code = SRAVANTHI) 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 - KJ L Lab Interpretation (test Normal code = 58732-8) [id number] 05:12:51 Test Item Value Reference Range Interpretation Comments MAGNESIUM (BEAKER) (test code = 1.9 mg/dL 1.6-2.6 627) 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 - KJ LBasic Metabolic [id number] 05:12:50 Test Item Value Reference Range Interpretation Comments Sodium (test code = 132 meq/L 136-145 L 2951-2) Potassium (test code = 3.8 meq/L 3.5-5.1 2823-3) Chloride (test code = 107 meq/L 98-107 2075-0) CO2 (test code = 20 meq/L 22-29 L 2028-9) BUN (test code = 29 mg/dL 7-21 H 3094-0) Creatinine (test code 0.89 mg/dL 0.57-1.25 = 2160-0) Glucose (test code = 296 mg/dL 70-105 H 2345-7) Calcium (test code = 8.1 mg/dL 8.4-10.2 L 55154-9) EGFR (test code = 85 mL/min/1.73 [place] [address]-7) NOT ACCURATE CREATININE CLEARANCE IN PREDICTING GLOMERULAR FILTRATION RATE . ESTIMATED GFR I S NOT APPLICABLE FOR DIALYSIS PATIENTS. SRAVANTHI (test code = SRAVANTHI) 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 - PIAYA L Lab Interpretation Abnormal (test code = 66936-8) [facility] METABOLIC [id number] 05:12:50 Test Item Value Reference Range Interpretation Comments SODIUM (BEAKER) 132 meq/L 136-145 L (test code = 381) POTASSIUM (BEAKER) 3.8 meq/L 3.5-5.1 (test code = 379) CHLORIDE (BEAKER) 107 meq/L 98-107 (test code = 382) CO2 (BEAKER) (test 20 meq/L 22-29 L code = 355) BLOOD UREA NITROGEN 29 mg/dL 7-21 H (BEAKER) (test code = 354) CREATININE (BEAKER) 0.89 mg/dL 0.57-1.25 (test code = 358) GLUCOSE RANDOM 296 mg/dL 70-105 H (BEAKER) (test code = 652) CALCIUM (BEAKER) 8.1 mg/dL 8.4-10.2 L (test code = 697) EGFR (BEAKER) (test 85 mL/min/1.73 ESTIMA CHILANGO GFR IS code = 1092) sq m NOT ACCURATE CREATININE CLEARANCE IN PREDICTING GLOMERULAR FILTRATION RATE . ESTIMATED GFR I S NOT APPLICABLE FOR DIALYSIS PATIEN TS. 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 - PIAYA LCBC W/PLT COUNT & AUTO [id number] 04:58:13 Test Item Value Reference Range Interpretation Comments WHITE BLOOD CELL COUNT (BEAKER) 4.0 K/ L 3.5-10.5 (test code = 775) RED BLOOD CELL COUNT (BEAKER) 4.26 M/ L 4.63-6.08 L (test code = 761) HEMOGLOBIN (BEAKER) (test code = 9.3 GM/DL 13.7-17.5 L 410) HEMATOCRIT (BEAKER) (test code = 31.7 % 40.1-51.0 L 411) MEAN CORPUSCULAR VOLUME (BEAKER) 74.4 fL 79.0-92.2 L (test code = 753) MEAN CORPUSCULAR HEMOGLOBIN 21.8 pg 25.7-32.2 L (BEAKER) (test code = 751) MEAN CORPUSCULAR HEMOGLOBIN CONC 29.3 GM/DL 32.3-36.5 L (BEAKER) (test code = 752) RED CELL DISTRIBUTION WIDTH 18.3 % 11.6-14.4 H (BEAKER) (test code = 412) PLATELET COUNT (BEAKER) (test code 89 K/CU MM 150-450 L = 756) MEAN PLATELET VOLUME (BEAKER) 11.4 fL 9.4-12.4 (test code = 754) NUCLEATED RED BLOOD CELLS (BEAKER) 0 /100 WBC 0-0 (test code = 413) NEUTROPHILS RELATIVE PERCENT 82 % (BEAKER) (test code = 429) LYMPHOCYTES RELATIVE PERCENT 7 % (BEAKER) (test code = 430) MONOCYTES RELATIVE PERCENT 11 % (BEAKER) (test code = 431) EOSINOPHILS RELATIVE PERCENT 0 % (BEAKER) (test code = 432) BASOPHILS RELATIVE PERCENT 0 % (BEAKER) (test code = 437) NEUTROPHILS ABSOLUTE COUNT 3.27 K/ L 1.78-5.38 (BEAKER) (test code = 670) LYMPHOCYTES ABSOLUTE COUNT 0.27 K/ L 1.32-3.57 L (BEAKER) (test code = 414) MONOCYTES ABSOLUTE COUNT (BEAKER) 0.45 K/ L 0.30-0.82 (test code = 415) EOSINOPHILS ABSOLUTE COUNT 0.00 K/ L 0.04-0.54 L (BEAKER) (test code = 416) BASOPHILS ABSOLUTE COUNT (BEAKER) 0.00 K/ L 0.01-0.08 L (test code = 417) IMMATURE GRANULOCYTES-RELATIVE 1 % 0-1 PERCENT (BEAKER) (test code = 2801) Vancomycin level, [id number] 04:55:28 Test Item Value Reference Range Interpretation Comments Vancomycin Tr (test code = 17.5 ug/mL 10.0-20.0 4092-3) SRAVANTHI (test code = SRAVANTHI) 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 - KJ L Lab Interpretation (test Normal code = 90466-0) [facility] CenterVANCOMYCIN LEVEL, [id number] 04:55:28 Test Item Value Reference Range Interpretation Comments VANCOMYCIN TROUGH (BEAKER) (test 17.5 ug/mL 10.0-20.0 code = 522) 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 - KJ LPOCT-GLUCOSE [id number] 21:29:37 Test Item Value Reference Range Interpretation Comments POC-GLUCOSE METER 276 mg/dL 70-110 H : TESTED A T [facility] 6720 (BEAKER) (test code = [facility], 1538) 51285: Truck Driver Teamster/Techni bradford ID = [id number] for Yue wild (contract), Hailee yu POCT-GLUCOSE [id number] 15:52:48 Test Item Value Reference Range Interpretation Comments POC-GLUCOSE METER 259 mg/dL 70-110 H : TESTED A T [facility] 6720 (BEAKER) (test code = [facility], 1538) 84394: Truck Driver Teamster/Techni bradford ID = [id number] for Brandan reynoso, Eva POCT-GLUCOSE [id number] 12:20:26 Test Item Value Reference Range Interpretation Comments POC-GLUCOSE METER 201 mg/dL 70-110 H : TESTED A T [facility] 6720 (BEAKER) (test code = [facility], 1538) 69870: Truck Driver Teamster/Techni bradford ID = [id number] for Brandan reynoso, Eva POCT-GLUCOSE [id number] 07:40:33 Test Item Value Reference Range Interpretation Comments POC-GLUCOSE METER 124 mg/dL 70-110 H : TESTED A T [facility] 6720 (BEAKER) (test code = [facility], 1538) 81047: Truck Driver Teamster/Techni bradford ID = [id number] for nuno (contract)Jericho kian POCT-GLUCOSE [id number] 21:05:12 Test Item Value Reference Range Interpretation Comments POC-GLUCOSE METER 121 mg/dL 70-110 H : TESTED A T [facility] 6720 (BEAKER) (test code [facility], = 1538) 17027: Truck Driver Teamster/Techni bradford ID = [id number] for Roberto tello (contract)Fabiola POCT-GLUCOSE [id number] 17:17:24 Test Item Value Reference Range Interpretation Comments POC-GLUCOSE METER 176 mg/dL 70-110 H : TESTED A T [facility] 6720 (BEAKER) (test code = [facility], 1538) 92057: Truck Driver Teamster/Techni bradford ID = [id number] for Akil francisco (contract)Ricardo POCT-GLUCOSE [id number] 11:54:21 Test Item Value Reference Range Interpretation Comments POC-GLUCOSE METER 213 mg/dL 70-110 H : TESTED A T [facility] 6720 (BEAKER) (test code = [facility] [place], 1538) 95898: Truck Driver Teamster/Techni bradford ID = [id number] for Se by (contract)Jericho CT, CHEST, WITHOUT [id number] 11:13:00DR POP Referring: Dr. Oneil Unlisted Reason for Exam - Click Yes and Enter Reason Below->No [facility] : 1950 Sex: MFINAL REPORT CT of the Chest dated 10/17/2021 COMPARISON: April 07, 2021 CLINICAL INFORMATION: Interstitial lung disease Comment: Axial images of the chest were obtained from thoracic inlet to the upper abdomen without intravenous contrast. This exam was performed according to our departmental dose- optimization program, which includes automated exposure control, adjustment of the mA and/or kV according to patient size and/or use of interactive reconstruction technique. Heart is in upper limits of normal in size. Great vessels are unremarkable. No adenopathy in the mediastinum or perihilar region. Trachea and mainstem bronchi are patent. There is interval development of multifocal airspace disease in both lungs worse in the upper lobes. There is minimal septal thickening. No bronchiectasis is is present. No pleural effusion or pleural based mass is seen. Visualized upper abdomen demonstrates splenomegaly. Paraesophageal varices is present. Impression: Interval d evelopment of multifocal consolidation in both lungs suggestive of infectious process of including atypical pneumonia. Signed: Anuel Casper Verified Date/Time: 10/17/2021 11:13:55 Reading Location: [address] Body Reading Room -GLUCOSE [id number] 09:40:17 Test Item Value Reference Range Interpretation Comments POC-GLUCOSE METER 176 mg/dL 70-110 H : TESTED A [facility] 6720 (SEAN) (test code = [facility] [place], 1538) 79492: Truck Driver Teamster/Techni bradford ID = [id number] for Se by (contract), Ros my RAD, CHEST, 1 VIEW, NON [id number] 07:49:00DR MINDIKOGLUReferring: Dr. Oneil Reason for exam:->PneumoniaShould this be performed at the bedside?->Yes [facility] 1950 Sex: MFINAL REPORT INDICATION: Pneumonia COMPARISON: 10/15/2021 TECHNIQUE: Single frontal view of the chest. FINDINGS: Lines, tubes, and devices: None.Lungs and pleura: Bilateral airspace opacities, mildly improved compared to prior exam, which may represent pneumonia or pulmonary edema. No effusion.Heart and mediastinum: Normal heart size. Unremarkable mediastinal contours.Osseous structures: Mild spondylosis and facet arthropathy are present within the spine. Other: None. IMPRESSION: Bilateral airspace opacities, mildly improved compared to prior exam, which may represent pneumonia or pulmonary edema. Signed: Ramone Dominguez Verified Date/Time: 10/17/2021 07:49:23 Reading Location: [facility] Radiology Reading Room VANCOMYCIN LEVEL, [id number] 07:06:47 Test Item Value Reference Range Interpretation Comments VANCOMYCIN TROUGH (BEAKER) (test 13.0 ug/mL 10.0-20.0 code = 522) 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 - DBBASIC METABOLIC [id number] 06:35:47 Test Item Value Reference Range Interpretation Comments SODIUM (BEAKER) 137 meq/L 136-145 (test code = 381) POTASSIUM (BEAKER) 4.2 meq/L 3.5-5.1 (test code = 379) CHLORIDE (BEAKER) 109 meq/L 98-107 H (test code = 382) CO2 (BEAKER) (test 23 meq/L 22-29 code = 355) BLOOD UREA NITROGEN 32 mg/dL 7-21 H (BEAKER) (test code = 354) CREATININE (BEAKER) 0.79 mg/dL 0.57-1.25 (test code = 358) GLUCOSE RANDOM 181 mg/dL 70-105 H (BEAKER) (test code = 652) CALCIUM (BEAKER) 8.1 mg/dL 8.4-10.2 L (test code = 697) EGFR (BEAKER) (test 97 mL/min/1.73 ESTIMA CHILANGO GFR IS code = 1092) sq m NOT ACCURATE CREATININE CLEARANCE IN PREDICTING GLOMERULAR FILTRATION RATE . ESTIMATED GFR I S NOT APPLICABLE FOR DIALYSIS PATIEN TS. 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 - [place] GPOCT-GLUCOSE [id number] 20:38:49 Test Item Value Reference Range Interpretation Comments POC-GLUCOSE METER 188 mg/dL 70-110 H : TESTED A T [facility] 6720 (BEAKER) (test code [facility], = 1538) 42554: Truck Driver Teamster/Techni bradford ID = [id number] for Roberto tello (contract)Fabiola POCT-GLUCOSE [id number] 18:08:57 Test Item Value Reference Range Interpretation Comments POC-GLUCOSE METER 198 mg/dL 70-110 H : TESTED A T [facility] 6720 (BEAKER) ([facility] = [facility], 1538) 89170: Truck Driver Teamster/Techni bradford ID = [id number] for Edgar loza (contract)Filippo POCT-GLUCOSE [id number] 13:03:38 Test Item Value Reference Range Interpretation Comments POC-GLUCOSE METER 193 mg/dL 70-110 H : Notified RN/MD: (BEAKER) (test code = TESTED AT [facility] 6720 1538) ZURI [facility], 77525: Truck Driver Teamster/Techni bradford ID = [id number] for Edgar loza (contract), Filippo ghotra POCT-GLUCOSE [id number] 08:31:11 Test Item Value Reference Range Interpretation Comments POC-GLUCOSE METER 192 mg/dL 70-110 H : TESTED A T [facility] 6720 (BEAKER) (test code = [facility], 1538) 12704: Truck Driver Teamster/Techni bradford ID = [id number] for Edgar loza (contract), Filippo ghotra CBC W/PLT COUNT & AUTO [id number] 07:15:46 Test Item Value Reference Range Interpretation Comments WHITE BLOOD CELL COUNT 3.2 K/ L 3.5-10.5 L (BEAKER) (test code = 775) RED BLOOD CELL COUNT 4.08 M/ L 4.63-6.08 L (BEAKER) (test code = 761) HEMOGLOBIN (BEAKER) 9.0 GM/DL 13.7-17.5 L (test code = 410) HEMATOCRIT (BEAKER) 30.3 % 40.1-51.0 L (test code = 411) MEAN CORPUSCULAR VOLUME 74.3 fL 79.0-92.2 L (BEAKER) (test code = 753) MEAN CORPUSCULAR 22.1 pg 25.7-32.2 L HEMOGLOBIN (BEAKER) (test code = 751) MEAN CORPUSCULAR 29.7 GM/DL 32.3-36.5 L HEMOGLOBIN CONC (BEAKER) (test code = 752) RED CELL DISTRIBUTION 18.3 % 11.6-14.4 H WIDTH (BEAKER) (test code = 412) PLATELET COUNT (BEAKER) 92 K/CU MM 150-450 L (test code = 756) MEAN PLATELET VOLUME Unable to report due (BEAKER) (test code = to abn ormal Platelet 754) population distribution.Th is is a corrected res ult. Previous result was 10.5 fL on 2021 at 0624 EXTERIOR INTERIOR SPECIALIST NUCLEATED RED BLOOD 0 /100 WBC 0-0 CELLS (BEAKER) (test code = 413) NEUTROPHILS RELATIVE 84 % PERCENT (BEAKER) (test code = 429) LYMPHOCYTES RELATIVE 7 % PERCENT (BEAKER) (test code = 430) MONOCYTES RELATIVE 8 % PERCENT (BEAKER) (test code = 431) EOSINOPHILS RELATIVE 0 % PERCENT (BEAKER) (test code = 432) BASOPHILS RELATIVE 0 % PERCENT (BEAKER) (test code = 437) NEUTROPHILS ABSOLUTE 2.69 K/ L 1.78-5.38 COUNT (BEAKER) (test code = 670) LYMPHOCYTES ABSOLUTE 0.23 K/ L 1.32-3.57 L COUNT (BEAKER) (test code = 414) MONOCYTES ABSOLUTE 0.24 K/ L 0.30-0.82 L COUNT (BEAKER) (test code = 415) EOSINOPHILS ABSOLUTE 0.00 K/ L 0.04-0.54 L COUNT (BEAKER) (test code = 416) BASOPHILS ABSOLUTE 0.01 K/ L 0.01-0.08 COUNT (BEAKER) (test code = 417) IMMATURE 1 % 0-1 GRANULOCYTES-RELATIVE PERCENT (BEAKER) (test code = 2801) POCT-GLUCOSE [id number] 20:50:35 Test Item Value Reference Range Interpretation Comments POC-GLUCOSE METER 250 mg/dL 70-110 H : TESTED A T [facility] 6720 (BEAKER) (test code [facility], = 1538) 25785: Truck Driver Teamster/Techni bradford ID = [id number] for Roberto tello (contract)Fabiola POCT-GLUCOSE [id number] 16:27:32 Test Item Value Reference Range Interpretation Comments POC-GLUCOSE METER 242 mg/dL 70-110 H : TESTED A T [facility] 6720 (BEAKER) (test code = [facility], 1538) 39101: Truck Driver Teamster/Techni bradford ID = [id number] for Eva Cotton Blood Culture # 15:00:55 Test Item Value Reference Range Interpretation Comments Result (test code = No growth in 5 days 6463-4) [facility] [id number] 15:00:55 Test Item Value Reference Range Interpretation Comments CULTURE (BEAKER) (test No growth in 5 days code = 1095) BLOOD [id number] 14:01:22 Test Item Value Reference Range Interpretation Comments CULTURE (BEAKER) (test No growth in 5 days code = 1095) The specimen volume collected for this blood culture was below the optimum (10 mL per bottle or 20 mL total). Use of lower volumes may adversely affect recovery and/or detection times of some organisms.POCT-GLUCOSE [id number] 13:19:12 Test Item Value Reference Range Interpretation Comments POC-GLUCOSE METER 223 mg/dL 70-110 H : TESTED A T [facility] 6720 (BEAKER) (test code = [facility] Karen [facility], 1538) 99307: Truck Driver Teamster/Techni bradford ID = [id number] for Barnard tcher (contract), Ricardo nnon POCT-GLUCOSE [id number] 08:53:36 Test Item Value Reference Range Interpretation Comments POC-GLUCOSE METER 212 mg/dL 70-110 H : TESTED A T [facility] 6720 (BEAKER) (test code = [facility], 1538) 66641: Truck Driver Teamster/Techni bradford ID = [id number] for Barnard tcher (contract), Sha nnon RAD, CHEST, 1 VIEW, NON [id number] 07:40:00DR MINDIKOGLUReferring: Dr. Oneil Reason for exam:->CovidShould this be performed at the bedside?->Yes [facility] : 1950 Sex: MFINAL REPORT EXAMINATION: RAD, CHEST, 1 VIEW, NON DEPT INDICAT ION: Viral pneumonia COMPARISON: Chest radiograph of the prior day FINDINGS: LINES/TUBES: None LUNGS: Unchanged bilateral multifocal opacities. PLEURA:No pleural effusion or pneumothorax. MEDIASTINUM: The cardiomediastinal silhouette appears unchanged in size and shape. BONES/SOFT TISSUES:No acuteosseous injury. ABDOMEN:No free air under the diaphragm. IMPRESSION: No significant interval change. Signed: Henry Brown MDReport Verified Date/Time: 10/15/2021 07:40:12 Reading Location: [facility] J805Axvyy Body Reading Room CBC W/PLT COUNT & AUTO [id number] 06:32:18 Test Item Value Reference Range Interpretation Comments WHITE BLOOD CELL COUNT 4.5 K/ L 3.5-10.5 (BEAKER) (test code = 775) RED BLOOD CELL COUNT 4.24 M/ L 4.63-6.08 L (BEAKER) (test code = 761) HEMOGLOBIN (BEAKER) 9.5 GM/DL 13.7-17.5 L (test code = 410) HEMATOCRIT (BEAKER) 31.5 % 40.1-51.0 L (test code = 411) MEAN CORPUSCULAR VOLUME 74.3 fL 79.0-92.2 L (BEAKER) (test code = 753) MEAN CORPUSCULAR 22.4 pg 25.7-32.2 L HEMOGLOBIN (BEAKER) (test code = 751) MEAN CORPUSCULAR 30.2 GM/DL 32.3-36.5 L HEMOGLOBIN CONC (BEAKER) (test code = 752) RED CELL DISTRIBUTION 18.4 % 11.6-14.4 H WIDTH (BEAKER) (test code = 412) PLATELET COUNT (BEAKER) 96 K/CU MM 150-450 L (test code = 756) MEAN PLATELET VOLUME Unable to report due (BEAKER) (test code = to abn ormal Platelet 754) population distribution. NUCLEATED RED BLOOD 0 /100 WBC 0-0 CELLS (BEAKER) (test code = 413) NEUTROPHILS RELATIVE 89 % PERCENT (BEAKER) (test code = 429) LYMPHOCYTES RELATIVE 6 % PERCENT (BEAKER) (test code = 430) MONOCYTES RELATIVE 5 % PERCENT (BEAKER) (test code = 431) EOSINOPHILS RELATIVE 0 % PERCENT (BEAKER) (test code = 432) BASOPHILS RELATIVE 0 % PERCENT (BEAKER) (test code = 437) NEUTROPHILS ABSOLUTE 3.96 K/ L 1.78-5.38 COUNT (BEAKER) (test code = 670) LYMPHOCYTES ABSOLUTE 0.25 K/ L 1.32-3.57 L COUNT (BEAKER) (test code = 414) MONOCYTES ABSOLUTE 0.23 K/ L 0.30-0.82 L COUNT (BEAKER) (test code = 415) EOSINOPHILS ABSOLUTE 0.00 K/ L 0.04-0.54 L COUNT (BEAKER) (test code = 416) BASOPHILS ABSOLUTE 0.00 K/ L 0.01-0.08 L COUNT (BEAKER) (test code = 417) IMMATURE 1 % 0-1 GRANULOCYTES-RELATIVE PERCENT (BEAKER) (test code = 2801) C-Reactive [id number] 05:48:56 Test Item Value Reference Range Interpretation Comments CRP (test code = 676) 3.32 mg/dL 0.00-0.50 H SRAVANTHI (test code = SRAVANTHI) 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 Boo KELSIE M Lab Interpretation (test Abnormal code = 02143-5) [facility] [id number] 05:48:56 Test Item Value Reference Range Interpretation Comments C-REACTIVE PROTEIN (BEAKER) (test 3.32 mg/dL 0.00-0.50 H code = 676) 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 - KELSIE [id number] 05:48:55 Test Item Value Reference Range Interpretation Comments MAGNESIUM (BEAKER) (test code = 2.0 mg/dL 1.6-2.6 627) 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 - KELSIE MBASIC METABOLIC [id number] 05:48:54 Test Item Value Reference Range Interpretation Comments SODIUM (BEAKER) 136 meq/L 136-145 (test code = 381) POTASSIUM (BEAKER) 4.8 meq/L 3.5-5.1 (test code = 379) CHLORIDE (BEAKER) 107 meq/L 98-107 (test code = 382) CO2 (BEAKER) (test 24 meq/L 22-29 code = 355) BLOOD UREA NITROGEN 43 mg/dL 7-21 H (BEAKER) (test code = 354) CREATININE (BEAKER) 1.02 mg/dL 0.57-1.25 (test code = 358) GLUCOSE RANDOM 221 mg/dL 70-105 H (BEAKER) (test code = 652) CALCIUM (BEAKER) 8.3 mg/dL 8.4-10.2 L (test code = 697) EGFR (BEAKER) (test 72 mL/min/1.73 ESTIMA CHILANGO GFR IS code = 1092) sq m NOT ACCURATE CREATININE CLEARANCE IN PREDICTING GLOMERULAR FILTRATION RATE . ESTIMATED GFR I S NOT APPLICABLE FOR DIALYSIS PATIEN TS. 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 - KELSIE MProthrombin time/[id number] 05:40:31 Test Item Value Reference Interpretation Comments Range Protime (test code = 18.5 See_Comment H [Autom ated 5902-2) message] The system which generated this result transmitted reference range : 11.9 - 14.2 seconds. The reference range was not used to interpret this result as normal/abnormal . INR (test code = 1.56 See_Comment [Automated 3771-6) message] The system which generated this result transmitted reference range : <=5.90. The reference range was not used to interpret this result as normal/abnormal . SRAVANTHI (test code = RECOMMENDED SRAVANTHI) COUMADIN/WARFARIN INR THERAPY RANGESSTANDARD DOSE: 2.0 - 3.0 Includes: PROPHYLAXIS for venous thrombosis, systemic embolization; TREATMENT for venous thrombosis and/or pulmonary embolus.HIGH RISK: Target INR is 2.5-3.5 for patients with mechanical heart valves. Lab Interpretation Abnormal (test code = 96668-7) [id number] 05:40:31 Test Item Value Reference Range Interpretation Comments PROTIME (SEAN) 18.5 seconds 11.9-14.2 H (test code = 759) INR (BEAKER) (test 1.56 See_Comment [Automat ed message] code = 370) The system [employer]oc[employer] generated this result transmitted ref erence range: <=5.90. The reference range was not used to int erpret this result as normal/abnormal . RECOMMENDED COUMADIN/WARFARIN INR THERAPY RANGESSTANDARD DOSE: 2.0 - 3.0 Includes: PROPHYLAXIS forvenous thrombosis, systemic embolization; TREATMENT for venous thrombosis and/or pulmonary embolus.HIGH RISK: Target INR is 2.5-3.5 for patients with mechanical heart valves.POCT-GLUCOSE [id number] 21:00:56 Test Item Value Reference Range Interpretation Comments POC-GLUCOSE METER 208 mg/dL 70-110 H : TESTED A T [facility] 6720 (BEAKER) (test code = [facility], 1538) [id number]: Truck Driver Teamster/Techni bradford ID = [id number] for Rosy munson (contract)Bambi POCT-GLUCOSE [id number] 17:19:42 Test Item Value Reference Range Interpretation Comments POC-GLUCOSE METER 238 mg/dL 70-110 H : TESTED A T [facility] 6720 ([facility]) (test code = [facility], 1538) 92873: Truck Driver Teamster/Techni bradford ID = [id number] for LEIDA MADRIGAL POCT-GLUCOSE [id number] 12:28:21 Test Item Value Reference Range Interpretation Comments POC-GLUCOSE METER 292 mg/dL 70-110 H : TESTED A T [facility] ([facility]) (test code = [facility], 1538) 73418: Truck Driver Teamster/Techni bradford ID = [id number] for FILIBERTO BAUMAN (contract, [place] RAD, CHEST, 1 VIEW, NON [id number] 08:55:00DR MINDIKOGLUReferring: Dr. Oneil Reason for exam:->Covid pneumoniaShould this be performed at the bedside?->Yes[facility] AR[facility]ULA : 1950 Sex: MFINAL REPORT RAD, CHEST, 1 VIEW, NON DEPT INDICATION: Covid pneumonia COMPARISON: None FINDINGS: Portable frontal view of the chest. IMPRESSION: Support Lines: 10/10/2021 . Lungs and pleura: Increased bilateral airspace opacities concerning for multifocal pneumoniaversus multifocal edema. No significant pneumothorax. Heart and mediastinum: Stable contours. Additional findings: None. Signed: Ginette Pardoort Verified Date/Time: 10/14/2021 08:55:06 Reading Location: [facility] Radiology Reading Room POCT-GLUCOSE METER 2021-10-14 07:54:01 Test Item Value Reference Range Interpretation Comments POC-GLUCOSE METER 240 mg/dL 70-110 H : TESTED A T [facility] ([employer]) (test code = [facility], 1538) 27837: Truck Driver Teamster/Techni bradford ID = [id number] for FILIBERTO BAUMAN (contract, [place] PROTHROMBIN TIME/[id number] 06:49:33 Test Item Value Reference Range Interpretation Comments PROTIME (BEAKER) 18.7 seconds 11.9-14.2 H (test code = 759) INR (BEAKER) (test 1.59 See_Comment [Automat ed message] code = 370) The system avocadostore generated this result transmitted ref erence range: <=5.90. The reference range was not used to int erpret this result as normal/abnormal . RECOMMENDED COUMADIN/WARFARIN INR THERAPY RANGESSTANDARD DOSE: 2.0 - 3.0 Includes: PROPHYLAXIS forvenous thrombosis, systemic embolization; TREATMENT for venous thrombosis and/or pulmonary embolus.HIGH RISK: Target INR is 2.5-3.5 for patients with mechanical heart valves.POCT-GLUCOSE [id number] 21:40:26 Test Item Value Reference Range Interpretation Comments POC-GLUCOSE METER 233 mg/dL 70-110 H : TESTED A T [facility] (BEAKER) (test code = [facility], 1538) 61694: Truck Driver Teamster/Techni bradford ID = [id number] for Yue wild (contract)Hailee POCT-GLUCOSE [id number] 16:08:51 Test Item Value Reference Range Interpretation Comments POC-GLUCOSE METER 331 mg/dL 70-110 H : TESTED A T [facility] (BEAKER) (test code [facility], = 1538) 37370: Truck Driver Teamster/Techni bradford ID = [id number] for Clifford gillette (contract)Jose Rafael POCT-GLUCOSE [id number] 13:23:53 Test Item Value Reference Range Interpretation Comments POC-GLUCOSE METER 339 mg/dL 70-110 H : TESTED A T [facility] (BEAKER) (test code = HANNAH Jones [facility], 1538) 80715: Truck Driver Teamster/Techni bradford ID = [id number] for Buck rooney (contract)Santi POCT-GLUCOSE [id number] 08:35:58 Test Item Value Reference Range Interpretation Comments POC-GLUCOSE METER 327 mg/dL 70-110 H : TESTED A T [facility] (BEAKER) (test code [facility], = 1538) 65054: Truck Driver Teamster/Techni bradford ID = [id number] for Clifford gillette (contract)Jose Rafael [id number] 07:38:55 Test Item Value Reference Range Interpretation Comments Phosphorus (test code = 2.1 mg/dL 2.3-4.7 L 2777-1) SRAVANTHI (test code = SRAVANTHI) 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 - [id number] L Lab Interpretation (test Abnormal code = 82483-2) [facility] 07:38:55 Test Item Value Reference Range Interpretation Comments PHOSPHORUS (BEAKER) (test code = 2.1 mg/dL 2.3-4.7 L 604) 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 - KJ LBASIC METABOLIC [id number] 07:38:54 Test Item Value Reference Range Interpretation Comments SODIUM (BEAKER) 131 meq/L 136-145 L (test code = 381) POTASSIUM (BEAKER) 4.4 meq/L 3.5-5.1 (test code = 379) CHLORIDE (BEAKER) 105 meq/L 98-107 (test code = 382) CO2 (BEAKER) (test 20 meq/L 22-29 L code = 355) BLOOD UREA NITROGEN 40 mg/dL 7-21 H (BEAKER) (test code = 354) CREATININE (BEAKER) 1.02 mg/dL 0.57-1.25 (test code = 358) GLUCOSE RANDOM 354 mg/dL 70-105 H (BEAKER) (test code = 652) CALCIUM (BEAKER) 8.3 mg/dL 8.4-10.2 L (test code = 697) EGFR (BEAKER) (test 72 mL/min/1.73 ESTIMA CHILANGO GFR IS code = 1092) sq m NOT ACCURATE CREATININE CLEARANCE IN PREDICTING GLOMERULAR FILTRATION RATE . ESTIMATED GFR I S NOT APPLICABLE FOR DIALYSIS PATIEN TS. 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 - KJ [id number] 07:38:54 Test Item Value Reference Range Interpretation Comments MAGNESIUM (BEAKER) (test code = 2.0 mg/dL 1.6-2.6 627) 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 - KJ LCBC W/PLT COUNT & AUTO [id number] 07:32:18 Test Item Value Reference Range Interpretation Comments WHITE BLOOD CELL COUNT (BEAKER) 2.7 K/ L 3.5-10.5 L (test code = 775) RED BLOOD CELL COUNT (BEAKER) 4.31 M/ L 4.63-6.08 L (test code = 761) HEMOGLOBIN (BEAKER) (test code = 9.6 GM/DL 13.7-17.5 L 410) HEMATOCRIT (BEAKER) (test code = 32.5 % 40.1-51.0 L 411) MEAN CORPUSCULAR VOLUME (BEAKER) 75.4 fL 79.0-92.2 L (test code = 753) MEAN CORPUSCULAR HEMOGLOBIN 22.3 pg 25.7-32.2 L (BEAKER) (test code = 751) MEAN CORPUSCULAR HEMOGLOBIN CONC 29.5 GM/DL 32.3-36.5 L (BEAKER) (test code = 752) RED CELL DISTRIBUTION WIDTH 17.7 % 11.6-14.4 H (BEAKER) (test code = 412) PLATELET COUNT (BEAKER) (test code 94 K/CU MM 150-450 L = 756) MEAN PLATELET VOLUME (BEAKER) 10.8 fL 9.4-12.4 (test code = 754) NUCLEATED RED BLOOD CELLS (BEAKER) 0 /100 WBC 0-0 (test code = 413) NEUTROPHILS RELATIVE PERCENT 85 % (BEAKER) (test code = 429) LYMPHOCYTES RELATIVE PERCENT 6 % (BEAKER) (test code = 430) MONOCYTES RELATIVE PERCENT 7 % (BEAKER) (test code = 431) EOSINOPHILS RELATIVE PERCENT 0 % (BEAKER) (test code = 432) BASOPHILS RELATIVE PERCENT 0 % (BEAKER) (test code = 437) NEUTROPHILS ABSOLUTE COUNT 2.26 K/ L 1.78-5.38 (BEAKER) (test code = 670) LYMPHOCYTES ABSOLUTE COUNT 0.17 K/ L 1.32-3.57 L (BEAKER) (test code = 414) MONOCYTES ABSOLUTE COUNT (BEAKER) 0.18 K/ L 0.30-0.82 L (test code = 415) EOSINOPHILS ABSOLUTE COUNT 0.00 K/ L 0.04-0.54 L (BEAKER) (test code = 416) BASOPHILS ABSOLUTE COUNT (BEAKER) 0.00 K/ L 0.01-0.08 L (test code = 417) IMMATURE GRANULOCYTES-RELATIVE 2 % 0-1 H PERCENT (BEAKER) (test code = 2801) PROTHROMBIN TIME/[id number] 07:01:41 Test Item Value Reference Range Interpretation Comments PROTIME (BEAKER) 17.9 seconds 11.9-14.2 H (test code = 759) INR (BEAKER) (test 1.50 See_Comment [Automat ed message] code = 370) The system avocadostore generated this result transmitted ref erence range: <=5.90. The reference range was not used to int erpret this result as normal/abnormal . RECOMMENDED COUMADIN/WARFARIN INR THERAPY RANGESSTANDARD DOSE: 2.0 - 3.0 Includes: PROPHYLAXIS forvenous thrombosis, systemic embolization; TREATMENT for venous thrombosis and/or pulmonary embolus.HIGH RISK: Target INR is 2.5-3.5 for patients with mechanical heart valves.POCT-GLUCOSE [id number] 20:34:43 Test Item Value Reference Range Interpretation Comments POC-GLUCOSE METER 269 mg/dL 70-110 H : TESTED A T [facility] ([employer]) (test code = [employer] [facility], 1538) 49810: Truck Driver Teamster/Techni bradford ID = [id number] for Pr junito (contract), Hailee gigi POCT-GLUCOSE [id number] 18:06:17 Test Item Value Reference Range Interpretation Comments POC-GLUCOSE METER 270 mg/dL 70-110 H : TESTED A T [facility] ([employer]) (test code = [facility] Tink [facility], 1538) 96335: Truck Driver Teamster/Techni bradford ID = [id number] for Ti be (contract), Mar ie Marry POCT-GLUCOSE [id number] 12:22:47 Test Item Value Reference Range Interpretation Comments POC-GLUCOSE METER 400 mg/dL 70-110 HH : TESTED A T [facility] (BEAKER) (test code = WAYNEHI Karen [place], 1538) 56197: Truck Driver Teamster/Techni bradford ID = [id number] for Michelle Santos POCT-GLUCOSE [id number] 08:04:42 Test Item Value Reference Range Interpretation Comments POC-GLUCOSE METER 380 mg/dL 70-110 H : TESTED A T [facility] (BEAKER) (test code = HANNAH Jones [place], 1538) 52124: Truck Driver Teamster/Techni bradford ID = [id number] for Michelle Santos COMPREHENSIVE METABOLIC [id number] 05:48:22 Test Item Value Reference Range Interpretation Comments TOTAL PROTEIN 5.8 gm/dL 6.0-8.3 L (BEAKER) (test code = 770) ALBUMIN (BEAKER) 2.4 g/dL 3.5-5.0 L (test code = 1145) ALKALINE PHOSPHATASE 64 U/L 40-150 (BEAKER) (test code = 346) BILIRUBIN TOTAL 0.9 mg/dL 0.2-1.2 (BEAKER) (test code = 377) SODIUM (BEAKER) (test 128 meq/L 136-145 L code = 381) POTASSIUM (BEAKER) 4.1 meq/L 3.5-5.1 (test code = 379) CHLORIDE (BEAKER) 102 meq/L 98-107 (test code = 382) CO2 (BEAKER) (test 20 meq/L 22-29 L code = 355) BLOOD UREA NITROGEN 44 mg/dL 7-21 H (BEAKER) (test code = 354) CREATININE (BEAKER) 1.08 mg/dL 0.57-1.25 (test code = 358) GLUCOSE RANDOM 454 mg/dL 70-105 HH (BEAKER) (test code = 652) CALCIUM (BEAKER) 8.2 mg/dL 8.4-10.2 L (test code = 697) AST (SGOT) (BEAKER) 23 U/L 5-34 (test code = 353) ALT (SGPT) (BEAKER) 13 U/L 6-55 (test code = 347) EGFR (BEAKER) (test 68 mL/min/1.73 ESTIMA CHILANGO GFR IS code = 1092) sq m NOT ACCURATE CREATININE CLEARANCE IN PREDICTING GLOMERULAR FILTRATION RATE . ESTIMATED GFR I S NOT APPLICABLE FOR DIALYSIS PATIEN TS. 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 - PIAYA LPROTHROMBIN TIME/[id number] 05:30:46 Test Item Value Reference Range Interpretation Comments PROTIME (BEAKER) 17.6 seconds 11.9-14.2 H (test code = 759) INR (BEAKER) (test 1.47 See_Comment [Automat ed message] code = 370) The system avocadostore generated this result transmitted ref erence range: <=5.90. The reference range was not used to int erpret this result as normal/abnormal . RECOMMENDED COUMADIN/WARFARIN INR THERAPY RANGESSTANDARD DOSE: 2.0 - 3.0 Includes: PROPHYLAXIS forvenous thrombosis, systemic embolization; TREATMENT for venous thrombosis and/or pulmonary embolus.HIGH RISK: Target INR is 2.5-3.5 for patients with mechanical heart valves.CBC W/PLT COUNT & AUTO DIFFERENTIAL 2021-10-12 05:25:35 Test Item Value Reference Range Interpretation Comments WHITE BLOOD CELL COUNT 2.5 K/ L 3.5-10.5 L (BEAKER) (test code = 775) RED BLOOD CELL COUNT 4.01 M/ L 4.63-6.08 L (BEAKER) (test code = 761) HEMOGLOBIN (BEAKER) 8.9 GM/DL 13.7-17.5 L (test code = 410) HEMATOCRIT (BEAKER) 29.7 % 40.1-51.0 L (test code = 411) MEAN CORPUSCULAR VOLUME 74.1 fL 79.0-92.2 L (BEAKER) (test code = 753) MEAN CORPUSCULAR 22.2 pg 25.7-32.2 L HEMOGLOBIN (BEAKER) (test code = 751) MEAN CORPUSCULAR 30.0 GM/DL 32.3-36.5 L HEMOGLOBIN CONC (BEAKER) (test code = 752) RED CELL DISTRIBUTION 17.4 % 11.6-14.4 H WIDTH (BEAKER) (test code = 412) PLATELET COUNT (BEAKER) 86 K/CU MM 150-450 L (test code = 756) MEAN PLATELET VOLUME Unable to report due (BEAKER) (test code = to abn ormal Platelet 754) population distribution. NUCLEATED RED BLOOD 0 /100 WBC 0-0 CELLS (BEAKER) (test code = 413) NEUTROPHILS RELATIVE 84 % PERCENT (BEAKER) (test code = 429) LYMPHOCYTES RELATIVE 9 % PERCENT (BEAKER) (test code = 430) MONOCYTES RELATIVE 7 % PERCENT (BEAKER) (test code = 431) EOSINOPHILS RELATIVE 0 % PERCENT (BEAKER) (test code = 432) BASOPHILS RELATIVE 0 % PERCENT (BEAKER) (test code = 437) NEUTROPHILS ABSOLUTE 2.13 K/ L 1.78-5.38 COUNT (BEAKER) (test code = 670) LYMPHOCYTES ABSOLUTE 0.22 K/ L 1.32-3.57 L COUNT (BEAKER) (test code = 414) MONOCYTES ABSOLUTE 0.18 K/ L 0.30-0.82 L COUNT (BEAKER) (test code = 415) EOSINOPHILS ABSOLUTE 0.00 K/ L 0.04-0.54 L COUNT (BEAKER) (test code = 416) BASOPHILS ABSOLUTE 0.00 K/ L 0.01-0.08 L COUNT (BEAKER) (test code = 417) IMMATURE 0 % 0-1 GRANULOCYTES-RELATIVE PERCENT (BEAKER) (test code = 2801) POCT-GLUCOSE [id number] 16:43:49 Test Item Value Reference Range Interpretation Comments POC-GLUCOSE METER 396 mg/dL 70-110 H : TESTED A T [facility] (BEAKER) (test code = [facility], 1538) 84112: Truck Driver Teamster/Techni bradford ID = [id number] for Michelle Santos POCT-GLUCOSE [id number] 12:25:40 Test Item Value Reference Range Interpretation Comments POC-GLUCOSE METER 374 mg/dL 70-110 H : TESTED A T [facility]20 (BEAKER) (test code = [facility], 1538) 48326: Truck Driver Teamster/Techni bradford ID = [id number] for Lacho Clarke Manual [id number] 10:32:00 Test Item Value Reference Range Interpretation Comments % Neutros (test code = 93 % 2816) % Lymphs (test code = 4 % 2817) % Monos (test code = 3 % 2818) # Neutros (test code = 1.49 K/ul 1.78-5.38 L 2830) # Lymphs (test code = 0.06 K/ul 1.32-3.57 L 2831) # Monos (test code = 0.05 K/uL 0.30-0.82 L 2832) Total Counted (test 100 code = 1351) WBC Morphology (test Normal code = 487) Platelet Morphology Normal (test code = 486) Anisocytosis (test code 1+ few = 961) Microcytes (test code = 1+ few 965) Poikilocytes (test code 2+ moderate = 966) Elliptocytes (test code 1+ few = 962) Ovalocytes (test code = 1+ few 477) Tear Drop Cells (test 1+ few code = 481) Pal Cells (test code = 2+ moderate 474) Artifact (test code = Present 3432) Platelet Conc (test Decreased code = 3438) SRAVANTHI (test code = SRAVANTHI) 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 - [id number] ID - Eliza Wakefield comments: Slide comments: Lab Interpretation Abnormal (test code = 98905-7) [facility](CELLAVISION MANUAL DIFF)2021-10-11 10:32:00 Test Item Value Reference Range Interpretation Comments NEUTROPHILS - REL 93 % (CELLAVISION)(BEAKER) (test code = 2816) LYMPHOCYTES - REL 4 % (CELLAVISION)(BEAKER) (test code = 2817) MONOCYTES - REL 3 % (CELLAVISION)(BEAKER) (test code = 2818) NEUTROPHILS - ABS 1.49 K/ul 1.78-5.38 L (CELLAVISION)(BEAKER) (test code = 2830) LYMPHOCYTES - ABS 0.06 K/ul 1.32-3.57 L (CELLAVISION)(BEAKER) (test code = 2831) MONOCYTES - ABS 0.05 K/uL 0.30-0.82 L (CELLAVISION)(BEAKER) (test code = 2832) TOTAL COUNTED (BEAKER) (test code 100 = 1351) WBC MORPHOLOGY (BEAKER) (test Normal code = 487) PLT MORPHOLOGY (BEAKER) (test Normal code = 486) ANISOCYTOSIS (BEAKER) (test code 1+ few = 961) MICROCYTES (BEAKER) (test code = 1+ few 965) POIKILOCYTES (BEAKER) (test code 2+ moderate = 966) ELLIPTOCYTES (BEAKER) (test code 1+ few = 962) OVALOCYTES (BEAKER) (test code = 1+ few 477) TEAR DROP CELLS (BEAKER) (test 1+ few code = 481) PAL CELLS (BEAKER) (test code = 2+ moderate 474) ARTIFACT (CELLAVISION)(BEAKER) Present (test code = 3432) PLATELET CONCENTRATION Decreased (CELLAVISION)(BEAKER) (test code = 3438) 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 - [id number] ID - Eliza Wakefield comments: Slide comments: CBC W/PLT COUNT & AUTO [id number] 10:31:59 Test Item Value Reference Range Interpretation Comments WHITE BLOOD CELL COUNT 1.6 K/ L 3.5-10.5 L (BEAKER) (test code = 775) RED BLOOD CELL COUNT 4.33 M/ L 4.63-6.08 L (BEAKER) (test code = 761) HEMOGLOBIN (BEAKER) 9.7 GM/DL 13.7-17.5 L (test code = 410) HEMATOCRIT (BEAKER) 32.5 % 40.1-51.0 L (test code = 411) MEAN CORPUSCULAR VOLUME 75.1 fL 79.0-92.2 L (BEAKER) (test code = 753) MEAN CORPUSCULAR 22.4 pg 25.7-32.2 L HEMOGLOBIN (BEAKER) (test code = 751) MEAN CORPUSCULAR 29.8 GM/DL 32.3-36.5 L HEMOGLOBIN CONC (BEAKER) (test code = 752) RED CELL DISTRIBUTION 17.8 % 11.6-14.4 H WIDTH (BEAKER) (test code = 412) PLATELET COUNT (BEAKER) 79 K/CU MM 150-450 L (test code = 756) MEAN PLATELET VOLUME Unable to report due (BEAKER) (test code = to abn ormal Platelet 754) population distribution. NUCLEATED RED BLOOD 0 /100 WBC 0-0 CELLS (BEAKER) (test code = 413) [id number] 10:07:55 Test Item Value Reference Range Interpretation Comments Procalcitonin (test code = 0.19 ng/mL <0.05 H 21847-7) SRAVANTHI (test code = SRAVANTHI) SEPSIS RISK (ng/mL)Low: 0.05-0.50Intermedi ate: 0.51-2.00High: >=2.01 Lab Interpretation (test Abnormal code = 51087-7) [facility] 10:07:55 Test Item Value Reference Range Interpretation Comments PROCALCITONIN (BEAKER) (test code 0.19 ng/mL <0.05 H = 3036) SEPSIS RISK (ng/mL)Low: 0.05-0.50Intermediate: 0.51-2.00High: >=[id number] 09:45:23 Test Item Value Reference Range Interpretation Comments PHOSPHORUS (BEAKER) (test code = 2.2 mg/dL 2.3-4.7 L 604) Truck Driver Teamster ZI [place] WC-REACTIVE [id number] 09:45:23 Test Item Value Reference Range Interpretation Comments C-REACTIVE PROTEIN (BEAKER) (test 13.60 mg/dL 0.00-0.50 H code = 676) 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 Boo [place] WCOMPREHENSIVE METABOLIC [id number] 09:45:22 Test Item Value Reference Range Interpretation Comments TOTAL PROTEIN 6.1 gm/dL 6.0-8.3 (BEAKER) (test code = 770) ALBUMIN (BEAKER) 2.4 g/dL 3.5-5.0 L (test code = 1145) ALKALINE PHOSPHATASE 65 U/L 40-150 (BEAKER) (test code = 346) BILIRUBIN TOTAL 1.3 mg/dL 0.2-1.2 H (BEAKER) (test code = 377) SODIUM (BEAKER) (test 133 meq/L 136-145 L code = 381) POTASSIUM (BEAKER) 4.0 meq/L 3.5-5.1 (test code = 379) CHLORIDE (BEAKER) 105 meq/L 98-107 (test code = 382) CO2 (BEAKER) (test 22 meq/L 22-29 code = 355) BLOOD UREA NITROGEN 33 mg/dL 7-21 H (BEAKER) (test code = 354) CREATININE (BEAKER) 0.93 mg/dL 0.57-1.25 (test code = 358) GLUCOSE RANDOM 326 mg/dL 70-105 H (BEAKER) (test code = 652) CALCIUM (BEAKER) 8.6 mg/dL 8.4-10.2 (test code = 697) AST (SGOT) (BEAKER) 33 U/L 5-34 (test code = 353) ALT (SGPT) (BEAKER) 16 U/L 6-55 (test code = 347) EGFR (BEAKER) (test 81 mL/min/1.73 ESTIMA CHILANGO GFR IS code = 1092) sq m NOT ACCURATE CREATININE CLEARANCE IN PREDICTING GLOMERULAR FILTRATION RATE . ESTIMATED GFR I S NOT APPLICABLE FOR DIALYSIS PATIEN TS. 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 - RAKAN [id number] 09:45:22 Test Item Value Reference Range Interpretation Comments MAGNESIUM (BEAKER) (test code = 1.7 mg/dL 1.6-2.6 627) 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 Boo [place] JG-[id number] 06:45:03 Test Item Value Reference Range Interpretation Comments D-Dimer, Quant (test 2.58 See_Comment H [Autom ated code = 73111-3) message] The system which generated this result transmitted reference range : <0.50 MG/L FEU. The reference range was not used to interpr et this result as normal/abnormal . SRAVANTHI (test code = SRAVANTHI) Intended Use: The D-Dimer Assay can be used to aid in the diagnosis of Deep Vein Thrombosis (DVT) and Pulmonary Embolism Disease (PED).In patients with low pre-test probability, various studies concerning STA Liatest D-dimer test have reported that with a cutoff value of 0.50 MG/L FEU, the Negative Predictive Value (NPV) regarding the exclusion of thrombosis is within 95-100% range. Lab Interpretation Abnormal (test code = 39103-1) [facility] CenterD-[id number] 06:45:03 Test Item Value Reference Range Interpretation Comments D-DIMER QUANTITATIVE (BEAKER) 2.58 MG/L FEU <0.50 H (test code = 671) Intended Use: The D-Dimer Assay can be used to aid in the diagnosis of Deep Vein Thrombosis (DVT) and Pulmonary Embolism Disease (PED).In patients with low pre- test probability, various studies concerning STA Liatest D-dimer test have reported that with a cutoff value of 0.50 MG/L FEU, the Negative Predictive Value (NPV) regarding the exclusion of thrombosis is within 95-100% range. Calcium, [id number] 06:39:39 Test Item Value Reference Range Interpretation Comments Calcium, Ion (test code = 1993-3) 1.14 mmol/L 1.12-1.27 pH, Blood (test code = 88231-8) 7.40 [facility]CALCI[facility], [id number] 06:39:39 Test Item Value Reference Range Interpretation Comments CALCIUM IONIZED (BEAKER) (test 1.14 mmol/L 1.12-1.27 code = 698) PH, BLOOD (BEAKER) (test code = 7.40 1810) POCT-GLUCOSE [id number] 21:50:56 Test Item Value Reference Range Interpretation Comments POC-GLUCOSE METER 260 mg/dL 70-110 H : TESTED A T [facility] (BEAKER) (test code = [facility], 1538) 21784: Truck Driver Teamster/Techni bradford ID = [id number] for Aayush Ricketts POCT-GLUCOSE [id number] 18:43:47 Test Item Value Reference Range Interpretation Comments POC-GLUCOSE METER 179 mg/dL 70-110 H : TESTED A T [facility] ([facility]) (test code = [facility], 1538) 89650: Truck Driver Teamster/Techni bradford ID = [id number] for Christie Guerra SARS-CoV2/RT-PCR (Symptomatic ONLY)2021-10-10 18:22:12 Test Item Value Reference Interpretation Comments Range SARS-COV2/RT-PCR Positive Negative AA The SARS-Co V-2 (test code = target nucleic 48883-5) acids are detec chilango in this specime n. The presence SARS-CoV-2 nucl eic acids cannot ru le out co-infectio ns or disease caus ed by other viral or bacterial pathogens. As w ith any molecular t est, mutations withi n the target karina ons of the Xpert Xp ress SARS-CoV-2 test could affect pr benji and/or probe binding resulti ng in failure to detect the pres ence of virus or the virus being detected less predictably. Fa lse negative result s may occur if vi vanessa is present at levels below th e analytical limi t of detection. This SARS CoV-2 test is a rapid, real-t flor RT-PCR test intended for th e qualitative detection of nucleic acid fr om SARS-CoV-2 in a nasopharyngeal swab specimen collec chilango from individual s suspected of COVID-19 by the ir healthcare provider. Resul ts from the Xpert Xpress SARS-CoV -2 test should be correlated with the clinical histor y, epidemiological data, and other data available to the clinician evaluating the patient. Viral nucleic acid ma y persist in vivo , independent of virus viability . Detection of analyte target( s) does not imply that the correspondi ng virus(es) are infectious or a re the causative agents for clin ical symptoms. SRAVANTHI (test code = This test has been SRAVANTHI) authorized by FDA under an EUA for use by authorized laboratories. This test is only authorized for the duration of the declaration that circumstances exist justifying the authorization of emergency use of in vitro diagnostic tests for detection and/or diagnosis of COVID-19 under Section 564(b)(1) of the Federal Food, Drug and Cosmetic Act, 21 U.S.C. 360bbb-3(b)(1), unless the authorization is terminated or revoked sooner. Fact Sheet for Healthcare Providers: https://www.[employer]/Documents/Xp ert%20Xpress%20SAR S%20CoV-2/Fact%20S heets/302-3802%20S ARS-COV-2%20HEALTH CARE%20PROVIDERS%2 0FACT%20SHEET.pdf Fact Sheet for Healthcare Patients: https://www.[employer]/Documents/Xp ert%20Xpress%20SAR S%20CoV-2/Fact%20S heets/302-3801%20S ARS-COV-2%20PATIEN T%20FACT%20SHEET.p df Lab Interpretation Abnormal (test code = 37477-9) [facility]2021-10-10 18:22:12 Test Item Value Reference Range Interpretation Comments SARS-COV2/RT-PCR Positive Negative AA The SARS-Co V-2 target (test code = nucleic acids a re detected ) in this specime n. The presence SARS-C oV-2 nucleic acids cannot ru le out co-infections o r disease caused by other viral or bacterial patho gens. As with any molecular t est, mutations withi n the target regions of the Xpert Xpress SARS-CoV-2 test could affect primer and/or p robe binding resulting in fa ilure to detect the pres ence of virus or the virus be ing detected less predictabl y. False negative result s may occur if virus is pre sent at levels below th e analytical limit of detect ion. This SARS CoV-2 test is a rapid, real-time RT-PC R test intended for e qualitative detection of nu cleic acid from SARS-CoV-2 in a nasopharyngeal swab specimen collected from individuals suspected of CO VID-[facility]. Results from e Xpert Xpress SARS-CoV -2 test should be corre lated with the clinical hi story, epidemiological data, and other data avai lable to the clinician evalu ating the patient. Viral nucleic acid may persist in vivo, independent of virus viability. Dete ction of analyte target( s) does not imply that the corresponding virus(es) are i nfectious or are the causati ve agents for clinical sympto ms. This test has been authorized by FDA under an EUA for use by authorized laboratories. This test is only authorized for the duration of the declaration that circumstances exist justifying the authorization of emergency use of in vitro diagnostic tests for detection and/or diagnosis of COVID-19 under Section 564(b)(1) of the Federal Food, Drug and Cosmetic Act, 21 U.S.C. 360bbb- 3(b)(1), unless the authorization is terminated or revoked sooner. Fact Sheet for Healthcare Providers: https://www.Invision.com/Documents/Xpert%20Xpress%20SARS%20CoV-2/Fact%20Sheets/748-0802%20SARS-COV -2%20HEALTHCARE%20PROVIDERS%20FACT%20SHEET.pdf Fact Sheet for Healthcare Patients: https://www.[employer]/Documents/Xpert %20Xpress%20SARS%20CoV-2/Fact%20Sheets/792-3801%22RERE-PRR-5%20PATIENT%20FACT%20 SHEET.pdfB-type natriuretic [id number] 16:36:01 Test Item Value Reference Range Interpretation Comments BNP (test code = 72777-8) <10 0-100 SRAVANTHI (test code = SRAVANTHI) 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 - DB Lab Interpretation (test Normal code = 50549-9) [facility] (BNP)2021-10-10 16:36:01 Test Item Value Reference Range Interpretation Comments B-TYPE NATRIURETIC PEPTIDE (BEAKER) < pg/mL 0-100 (test code = 700) 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 - [id number] 16:20:08 Test Item Value Reference Range Interpretation Comments Lipase (test code = 3040-3) 22 U/L 8-78 SRAVANTHI (test code = SRAVANTHI) 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 - DB Lab Interpretation (test Normal code = 82551-8) [facility]20[facility] 16:20:08 Test Item Value Reference Range Interpretation Comments MAGNESIUM (BEAKER) 1.7 mg/dL 1.6-2.6 Specimen slightly (test code = 627) hemolyzed 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 - [id number] 16:20:08 Test Item Value Reference Range Interpretation Comments PHOSPHORUS (BEAKER) 2.3 mg/dL 2.3-4.7 Specimen slightly (test code = 604) hemolyzed 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 - [id number] 16:20:08 Test Item Value Reference Range Interpretation Comments LIPASE (BEAKER) (test code = 749) 22 U/L 878 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 - DBLactic acid, venous [id number] 16:15:45 Test Item Value Reference Range Interpretation Comments Lactate, Venous (test 2.09 mmol/L 0.50-2.20 Specim en code = 2872) moderately hemolyzed SRAVANTHI (test code = SRAVANTHI) 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 - DB Lab Interpretation Normal (test code = 12758-2) [facility] CenterLACTIC ACID, [id number] 16:15:45 Test Item Value Reference Range Interpretation Comments LACTATE BLOOD VENOUS 2.09 mmol/L 0.50-2.20 Specime n moderately (2) (BEAKER) (test hemolyzed code = 2872) 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 - DBRAD, CHEST, 1 VIEW, NON [id number] 14:08:00DR MINDIKOGLUReferring: Dr. Oneil Reason for exam:->GENERALIZED WEAKNESS, NOT ASSOCIATED WITH EXTREMITIESReason for exam:->ALTERED MENTAL STATUSShould this be performed at the bedside?->Yes [facility] : 1950 Sex: MFINAL REPORT INDICATION: GENERALIZED WEAKNESS, NOT ASSOCIATED WITH EXTREMITIESALTERED MENTAL STATUS COMPARISON: 09/06/2021 TECHNIQUE: Single frontal view of the chest.FINDINGS: Lungs and pleura: Bilateral airspace opacities concerning for multifocal pneumonia versus multifocal edema. No effusion.Heart and mediastinum: Normal heart size. Unremarkable mediastinal contours.Osseous structures: No acute abnormality.Other: None. IMPRESSION: Bilateral airspace opacities concerning for multifocal pneumonia versus multifocal edema. Signed: Ginette Pardo MDReport Verified Date/Time: 10/10/2021 14:08:34 Reading Location: [facility] Radiology Reading Room [id number] 13:53:05 Test Item Value Reference Range Interpretation Comments Ammonia (test code = 34 See_Comment [Autom ated 22180-9) message] The system which generated this result transmit chilango reference range : 18 - 72 mol/L . The reference range was not u sed to interpret th is result as normal/abnormal . SRAVANTHI (test code = SRAVANTHI) 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 - ADMIN Lab Interpretation Normal (test code = 17911-4) [facility] CenterAMMONIA2022-[facility] 13:53:05 Test Item Value Reference Range Interpretation Comments AMMONIA (BEAKER) (test code = 348) 34 mol/L 18-72 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 - ADMINCOMPREHENSIVE METABOLIC [id number] 13:48:40 Test Item Value Reference Range Interpretation Comments TOTAL PROTEIN 7.3 gm/dL 6.0-8.3 Specimen sligh tly (BEAKER) (test code = hemoly zed 770) ALBUMIN (BEAKER) 3.0 g/dL 3.5-5.0 L Specimen sl ightly (test code = 1145) hemolyzed ALKALINE PHOSPHATASE 85 U/L 40-150 (BEAKER) (test code = 346) BILIRUBIN TOTAL 2.5 mg/dL 0.2-1.2 H Specimen sli ghtly (BEAKER) (test code = hemoly zed 377) SODIUM (BEAKER) (test 132 meq/L 136-145 L code = 381) POTASSIUM (BEAKER) 4.4 meq/L 3.5-5.1 Specimen slightly (test code = 379) hemolyzed CHLORIDE (BEAKER) 105 meq/L 98-107 (test code = 382) CO2 (BEAKER) (test 17 meq/L 22-29 L code = 355) BLOOD UREA NITROGEN 28 mg/dL 7-21 H (BEAKER) (test code = 354) CREATININE (BEAKER) 0.98 mg/dL 0.57-1.25 Specimen slightly (test code = 358) hemolyzed GLUCOSE RANDOM 200 mg/dL 70-105 H (BEAKER) (test code = 652) CALCIUM (BEAKER) 9.1 mg/dL 8.4-10.2 (test code = 697) AST (SGOT) (BEAKER) 47 U/L 5-34 H Specimen slightly (test code = 353) hemolyzed ALT (SGPT) (BEAKER) 20 U/L 6-55 Specimen slightly (test code = 347) hemolyzed EGFR (BEAKER) (test 76 mL/min/1.73 ESTIMA CHILANGO GFR IS code = 1092) sq m NOT ACCURATE CREATININE CLEARANCE IN PREDICTING GLOMERULAR FILTRATION RATE . ESTIMATED GFR I S NOT APPLICABLE FOR DIALYSIS PATIEN TS. 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 - ADMINSpecimen slightly ictericLACTIC ACID, [id number] 13:41:57 Test Item Value Reference Range Interpretation Comments LACTATE BLOOD VENOUS 2.51 mmol/L 0.50-2.20 H Specime n moderately (2) (BEAKER) (test hemolyzed code = 2872) 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 - [id number] 13:29:42 Test Item Value Reference Range Interpretation Comments PTT (test code = 50453-6) 32.5 See_Comment [ Automated message] The system avocadostore generated this result transmitted ref erence range: 22.5 - 3 6.0 seconds. The re ference range was not u sed to interpret this result as normal/abnor mal. Lab Interpretation (test Normal code = 56723-0) [facility] CenterAPTT20[facility] 13:29:42 Test Item Value Reference Range Interpretation Comments PARTIAL THROMBOPLASTIN TIME 32.5 seconds 22.5-36.0 (BEAKER) (test code = 760) PROTHROMBIN TIME/[id number] 13:28:38 Test Item Value Reference Range Interpretation Comments PROTIME (BEAKER) 16.7 seconds 11.9-14.2 H (test code = 759) INR (BEAKER) (test 1.37 See_Comment [Automat ed message] code = 370) The system avocadostore generated this result transmitted ref erence range: <=5.90. The reference range was not used to int erpret this result as normal/abnormal . RECOMMENDED COUMADIN/WARFARIN INR THERAPY RANGESSTANDARD DOSE: 2.0 - 3.0 Includes: PROPHYLAXIS forvenous thrombosis, systemic embolization; TREATMENT for venous thrombosis and/or pulmonary embolus.HIGH RISK: Target INR is 2.5-3.5 for patients with mechanical heart valves.CBC W/PLT COUNT & AUTO DIFFERENTIAL 2021-10-10 13:26:34 Test Item Value Reference Range Interpretation Comments WHITE BLOOD CELL COUNT 3.5 K/ L 3.5-10.5 (BEAKER) (test code = 775) RED BLOOD CELL COUNT 5.47 M/ L 4.63-6.08 (BEAKER) (test code = 761) HEMOGLOBIN (BEAKER) 12.1 GM/DL 13.7-17.5 L (test code = 410) HEMATOCRIT (BEAKER) 41.0 % 40.1-51.0 (test code = 411) MEAN CORPUSCULAR 75.0 fL 79.0-92.2 L VOLUME (BEAKER) (test code = 753) MEAN CORPUSCULAR 22.1 pg 25.7-32.2 L HEMOGLOBIN (BEAKER) (test code = 751) MEAN CORPUSCULAR 29.5 GM/DL 32.3-36.5 L HEMOGLOBIN CONC (BEAKER) (test code = 752) RED CELL DISTRIBUTION 18.9 % 11.6-14.4 H WIDTH (BEAKER) (test code = 412) PLATELET COUNT 104 K/CU MM 150-450 L (BEAKER) (test code = 756) MEAN PLATELET VOLUME Unable to report due (BEAKER) (test code = to abn ormal Platelet 754) population distribution. NUCLEATED RED BLOOD 0 /100 WBC 0-0 CELLS (BEAKER) (test code = 413) NEUTROPHILS RELATIVE 77 % PERCENT (BEAKER) (test code = 429) LYMPHOCYTES RELATIVE 11 % PERCENT (BEAKER) (test code = 430) MONOCYTES RELATIVE 9 % PERCENT (BEAKER) (test code = 431) EOSINOPHILS RELATIVE 2 % PERCENT (BEAKER) (test code = 432) BASOPHILS RELATIVE 0 % PERCENT (BEAKER) (test code = 437) NEUTROPHILS ABSOLUTE 2.73 K/ L 1.78-5.38 COUNT (BEAKER) (test code = 670) LYMPHOCYTES ABSOLUTE 0.37 K/ L 1.32-3.57 L COUNT (BEAKER) (test code = 414) MONOCYTES ABSOLUTE 0.32 K/ L 0.30-0.82 COUNT (BEAKER) (test code = 415) EOSINOPHILS ABSOLUTE 0.08 K/ L 0.04-0.54 COUNT (BEAKER) (test code = 416) BASOPHILS ABSOLUTE 0.01 K/ L 0.01-0.08 COUNT (BEAKER) (test code = 417) IMMATURE 1 % 0-1 GRANULOCYTES-RELATIVE PERCENT (BEAKER) (test code = 2801) MR, ABDOMEN, [id number] 11:45:00DR MINDIKOGLUReferring: Dr. 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 INDICATION: Portal vein thrombosisfollowup on nonocclusive SMV thrombus seen on CT 08/12/2021. COMPARISON: MRI from 07/26/2021. CT from 08/12/2021 FINDINGS: LOWER THORAX: Unremarkable. LIVER: Nodular, cirrhotic liver. There are wedge-shaped areas of arterial phase hyperenhancement the per iphery liver which most likely perfusional. BILIARY: Prior subtotal cholecystectomy. There are residual stones in the gallbladder which measure up to 1.2 cm. The gallbladder is collapsed. There is intermediate T2 weighted signal in the right upper quadrant surrounding the gallbladder with progressively enhancing tissue and tubular areas of nonenhancement. SPLEEN: 18.6 cm splenomegaly. PANCREAS: No focal masses or ductal dilatation. ADRENALS: No adrenal nodules.KIDNEYS/URETERS: No hydronephrosis or solid mass lesions. PERITONEUM/RETROPERITONEUM: There is a trace amount of ascites in the mary hepatis.LYMPH NODES: No lymphadenopathy. The prominent but nonenlarged lymph nodes in the mary hepatis arelikely reactive. VESSELS: Thrombus extends from the ileal branches of the superior mesenteric vein into the most superior portion of the superior mesenteric vein, unchanged from 08/12/2021. Conventional hepatic arterial anatomy. The main portal vein is patent and measures 1.4 cm in diameter. There are moderate sized esophageal and paraesophageal varices. Moderate sized splenorenal shunt. GI TRACT: No distention or wall thickening of the partially visualized bowel. Moderate diverticulosis of the partially visualized sigmoid colon. Mild diverticulosis of the hepatic flexure. BONES AND SOFT TISSUES: Unremarkable. IMPRESSION: 1.No suspicious liver lesion. 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 3.Several wedge-shaped areas of arterial phase hyperenhancement at the periphery of the liver are most likely perfusional. 4.Cirrhosis with sequelae of portal hypertension including splenomegaly and moderate sized esophageal varices. 5.The inflammatory changes and scarring in the right upper quadrant immediately adjacent to the gallbladder are unchanged. 6.Prior subtotal cholecystectomy with stones in the residual gallbladder. No gallbladder distention to suggest acute cholecystitis. Signed: Rosalio Guerrero MDReport Verified Date/Time: 09/16/2021 11:45:14 Reading Location: [facility] [id number] Ortho Consult Reading Room Electronicallysigned by: ROSALIO GUERRERO MD on 09/16/2021 11:45 AMHepatic function [id number] 12:24:57 Test Item Value Reference Range Interpretation Comments Protein, Total (test 7.0 See_Comment [Autom ated code = 2885-2) message] The system which generated this result transmit chilango reference range : 6.0 - 8.3 gm/dL . The reference range was not u sed to interpret th is result as normal/abnormal . Albumin (test code = 3.3 g/dL 3.5-5.0 L 31583-2) Total Bilirubin (test 1.5 mg/dL 0.2-1.2 H code = 1974-2) Bilirubin, Direct 0.7 mg/dL 0.1-0.5 H (test code = 1968-7) Alkaline Phosphatase 98 U/L 40-150 (test code = 6768-6) AST (test code = 22 U/L 5-34 1920-8) ALT (test code = 16 U/L 6-55 1742-6) SRAVANTHI (test code = SRAVANTHI) 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 - RAKAN Herrera Lab Interpretation Abnormal (test code = 78813-0) [facility] CenterBASI METABOLIC [id number] 12:24:57 Test Item Value Reference Range Interpretation Comments SODIUM (BEAKER) 138 meq/L 136-145 (test code = 381) POTASSIUM (BEAKER) 3.9 meq/L 3.5-5.1 (test code = 379) CHLORIDE (BEAKER) 107 meq/L 98-107 (test code = 382) CO2 (BEAKER) (test 26 meq/L 22-29 code = 355) BLOOD UREA NITROGEN 9 mg/dL 7-21 (BEAKER) (test code = 354) CREATININE (BEAKER) 0.80 mg/dL 0.57-1.25 (test code = 358) GLUCOSE RANDOM 182 mg/dL 70-105 H (BEAKER) (test code = 652) CALCIUM (BEAKER) 9.1 mg/dL 8.4-10.2 (test code = 697) EGFR (BEAKER) (test 96 mL/min/1.73 ESTIMA CHILANGO GFR IS code = 1092) sq m NOT ACCURATE CREATININE CLEARANCE IN PREDICTING GLOMERULAR FILTRATION RATE . ESTIMATED GFR I S NOT APPLICABLE FOR DIALYSIS PATIEN TS. 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 - RAKAN [id number] 12:24:57 Test Item Value Reference Range Interpretation Comments MAGNESIUM (BEAKER) (test code = 1.3 mg/dL 1.6-2.6 L 627) 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 Boo [place] [employer]CTION [id number] 12:24:57 Test Item Value Reference Range Interpretation Comments TOTAL PROTEIN (BEAKER) (test code = 7.0 gm/dL 6.0-8.3 770) ALBUMIN (BEAKER) (test code = 1145) 3.3 g/dL 3.5-5.0 L BILIRUBIN TOTAL (BEAKER) (test code 1.5 mg/dL 0.2-1.2 H = 377) BILIRUBIN DIRECT (BEAKER) (test 0.7 mg/dL 0.1-0.5 H code = 706) ALKALINE PHOSPHATASE (BEAKER) (test 98 U/L 40-150 code = 346) AST (SGOT) (BEAKER) (test code = 22 U/L 5-34 353) ALT (SGPT) (BEAKER) (test code = 16 U/L 6-55 347) 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 Boo [place] WPROTHROMBIN TIME/[id number] 12:07:50 Test Item Value Reference Range Interpretation Comments PROTIME (BEAKER) 16.1 seconds 11.9-14.2 H (test code = 759) INR (BEAKER) (test 1.31 See_Comment [Automat ed message] code = 370) The system avocadostore generated this result transmitted ref erence range: <=5.90. The reference range was not used to int erpret this result as normal/abnormal . RECOMMENDED COUMADIN/WARFARIN INR THERAPY RANGESSTANDARD DOSE: 2.0 - 3.0 Includes: PROPHYLAXIS forvenous thrombosis, systemic embolization; TREATMENT for venous thrombosis and/or pulmonary embolus.HIGH RISK: Target INR is 2.5-3.5 for patients with mechanical heart valves.CBC W/PLT COUNT & AUTO DIFFERENTIAL 2021-09-15 11:57:49 Test Item Value Reference Range Interpretation Comments WHITE BLOOD CELL COUNT (BEAKER) 2.3 K/ L 3.5-10.5 L (test code = 775) RED BLOOD CELL COUNT (BEAKER) 4.65 M/ L 4.63-6.08 (test code = 761) HEMOGLOBIN (BEAKER) (test code = 10.6 GM/DL 13.7-17.5 L 410) HEMATOCRIT (BEAKER) (test code = 36.8 % 40.1-51.0 L 411) MEAN CORPUSCULAR VOLUME (BEAKER) 79.1 fL 79.0-92.2 (test code = 753) MEAN CORPUSCULAR HEMOGLOBIN 22.8 pg 25.7-32.2 L (BEAKER) (test code = 751) MEAN CORPUSCULAR HEMOGLOBIN CONC 28.8 GM/DL 32.3-36.5 L (BEAKER) (test code = 752) RED CELL DISTRIBUTION WIDTH 17.3 % 11.6-14.4 H (BEAKER) (test code = 412) PLATELET COUNT (BEAKER) (test code 88 K/CU MM 150-450 L = 756) MEAN PLATELET VOLUME (BEAKER) 10.7 fL 9.4-12.4 (test code = 754) NUCLEATED RED BLOOD CELLS (BEAKER) 0 /100 WBC 0-0 (test code = 413) NEUTROPHILS RELATIVE PERCENT 66 % (BEAKER) (test code = 429) LYMPHOCYTES RELATIVE PERCENT 18 % (BEAKER) (test code = 430) MONOCYTES RELATIVE PERCENT 11 % (BEAKER) (test code = 431) EOSINOPHILS RELATIVE PERCENT 4 % (BEAKER) (test code = 432) BASOPHILS RELATIVE PERCENT 1 % (BEAKER) (test code = 437) NEUTROPHILS ABSOLUTE COUNT 1.52 K/ L 1.78-5.38 L (BEAKER) (test code = 670) LYMPHOCYTES ABSOLUTE COUNT 0.41 K/ L 1.32-3.57 L (BEAKER) (test code = 414) MONOCYTES ABSOLUTE COUNT (BEAKER) 0.25 K/ L 0.30-0.82 L (test code = 415) EOSINOPHILS ABSOLUTE COUNT 0.09 K/ L 0.04-0.54 (BEAKER) (test code = 416) BASOPHILS ABSOLUTE COUNT (BEAKER) 0.03 K/ L 0.01-0.08 (test code = 417) IMMATURE GRANULOCYTES-RELATIVE 0 % 0-1 PERCENT (BEAKER) (test code = 2801) POCT-GLUCOSE [id number] 11:50:27 Test Item Value Reference Range Interpretation Comments POC-GLUCOSE METER 307 mg/dL 70-110 H : TESTED A T [facility] 6720 (BEAKER) (test code = HANNAH Jones [facility], 1538) 079[address]: Truck Driver Teamster/Techni bradford ID = [id number] for ELVIN SOTO 2D Echo W/Doppler(CW/PW/Color)2021-09-08 10:46:55Ejection FractionSST. [facility] ECHO HEARTLAB MKCKESSON [facility]PO[facility] 2021-09-08 08:24:12 Test Item Value Reference Range Interpretation Comments POC-GLUCOSE METER 255 mg/dL 70-110 H : TESTED A T [facility] 6720 (BEAKER) (test code = HANNAH Jones [facility], 1538) 23081: Truck Driver Teamster/Techni bradford ID = [id number] for ELVIN SOTO [id number] 05:52:09 Test Item Value Reference Range Interpretation Comments PHOSPHORUS (BEAKER) (test code = 2.6 mg/dL 2.3-4.7 604) 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 - PIAYA LBASIC METABOLIC [id number] 05:52:08 Test Item Value Reference Range Interpretation Comments SODIUM (BEAKER) 135 meq/L 136-145 L (test code = 381) POTASSIUM (BEAKER) 3.7 meq/L 3.5-5.1 (test code = 379) CHLORIDE (BEAKER) 102 meq/L 98-107 (test code = 382) CO2 (BEAKER) (test 27 meq/L 22-29 code = 355) BLOOD UREA NITROGEN 10 mg/dL 7-21 (BEAKER) (test code = 354) CREATININE (BEAKER) 0.85 mg/dL 0.57-1.25 (test code = 358) GLUCOSE RANDOM 341 mg/dL 70-105 H (BEAKER) (test code = 652) CALCIUM (BEAKER) 8.6 mg/dL 8.4-10.2 (test code = 697) EGFR (BEAKER) (test 89 mL/min/1.73 ESTIMA CHILANGO GFR IS code = 1092) sq m NOT ACCURATE CREATININE CLEARANCE IN PREDICTING GLOMERULAR FILTRATION RATE . ESTIMATED GFR I S NOT APPLICABLE FOR DIALYSIS PATIEN TS. 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 - KJ [id number] 05:52:08 Test Item Value Reference Range Interpretation Comments MAGNESIUM (BEAKER) (test code = 1.5 mg/dL 1.6-2.6 L 627) 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 - KJ LCBC (hemogram only)2021-09-08 05:42:47 Test Item Value Reference Range Interpretation Comments WBC (test code = 6690-2) 1.5 See_Comment L [A utomated message] The system avocadostore generated this result transmitted ref erence range: 3.5 - 10 .5 K/L. The refe rence range was not u sed to interpret this result as normal/abnor mal. RBC (test code = 789-8) 4.47 See_Comment L [Au tomated message] The system avocadostore generated this result transmitted ref erence range: 4.63 - 6 .08 M/L. The refe rence range was not u sed to interpret this result as normal/abnor mal. MCHC (test code = 786-4) 29.5 See_Comment L [A utomated message] The system avocadostore generated this result transmitted ref erence range: 32.3 - 3 6.5 GM/DL. The refe rence range was not u sed to interpret this result as normal/abnor mal. Hematocrit (test code = 34.9 % 40.1-51.0 L 4544-3) MCV (test code = 787-2) 78.1 fL 79.0-92.2 L MCH (test code = 785-6) 23.0 pg 25.7-32.2 L RDW (test code = 788-0) 17.1 % 11.6-14.4 H Platelets (test code = 61 See_Comment L [Aut omated message] 777-3) The system avocadostore generated this result transmitted ref erence range: 150 - 45 0 K/CU MM. The referen ce range was not u sed to interpret this result as normal/abnor mal. MPV (test code = 9.9 fL 9.4-12.4 50765-1) nRBC (test code = 413) 0 See_Comment [Aut omated message] The system avocadostore generated this result transmitted ref erence range: 0 - 0 /1 00 WBC. The refere nce range was not u sed to interpret this result as normal/abnor mal. Lab Interpretation (test Abnormal code = 27761-1) [facility] (HEMOGRAM ONLY)2021-09-08 05:42:47 Test Item Value Reference Range Interpretation Comments WHITE BLOOD CELL COUNT (BEAKER) 1.5 K/ L 3.5-10.5 L (test code = 775) RED BLOOD CELL COUNT (BEAKER) 4.47 M/ L 4.63-6.08 L (test code = 761) HEMOGLOBIN (BEAKER) (test code = 10.3 GM/DL 13.7-17.5 L 410) HEMATOCRIT (BEAKER) (test code = 34.9 % 40.1-51.0 L 411) MEAN CORPUSCULAR VOLUME (BEAKER) 78.1 fL 79.0-92.2 L (test code = 753) MEAN CORPUSCULAR HEMOGLOBIN 23.0 pg 25.7-32.2 L (BEAKER) (test code = 751) MEAN CORPUSCULAR HEMOGLOBIN CONC 29.5 GM/DL 32.3-36.5 L (BEAKER) (test code = 752) RED CELL DISTRIBUTION WIDTH 17.1 % 11.6-14.4 H (BEAKER) (test code = 412) PLATELET COUNT (BEAKER) (test code 61 K/CU MM 150-450 L = 756) MEAN PLATELET VOLUME (BEAKER) 9.9 fL 9.4-12.4 (test code = 754) NUCLEATED RED BLOOD CELLS (BEAKER) 0 /100 WBC 0-0 (test code = 413) POCT-GLUCOSE [id number] 21:01:31 Test Item Value Reference Range Interpretation Comments POC-GLUCOSE METER 364 mg/dL 70-110 H : TESTED A T [facility] (BEAKER) (test code [facility], = 1538) 69454: Truck Driver Teamster/Techni bradford ID = [id number] for Jose archer (contract)Leonard POCT-GLUCOSE [id number] 16:41:25 Test Item Value Reference Range Interpretation Comments POC-GLUCOSE METER 261 mg/dL 70-110 H : TESTED A T [facility] 6720 (BEAKER) (test code = [facility], 1538) 90055: Truck Driver Teamster/Techni bradford ID = [id number] for ELVIN SOTO Vitamin B12 and [id number] 13:08:26 Test Item Value Reference Range Interpretation Comments Vitamin B12 (test 591 pg/mL 213-816 code = 2132-9) Folate (test code = 10.50 ng/mL See_Comment [Automa chilango 2284-8) message] The system which generated this result transmit chilango reference range : >=7.00. The reference range was not used to interpret this result as normal/abnormal . SRAVANTHI (test code = SRAVANTHI) 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 - PIAYA L Lab Interpretation Normal (test code = 53232-4) [facility] CenterVITAMIN B12 AND [id number] 13:08:26 Test Item Value Reference Range Interpretation Comments VITAMIN B12 591 pg/mL 213-816 (BEAKER) (test code = 774) FOLATE (BEAKER) 10.50 ng/mL See_Comment [Automated message] (test code = 362) The system which generated this result transmitted ref erence range: >=7.00. The reference range was not used to interpr et this result as normal/abnormal . 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 - PIAYA LPOCT-GLUCOSE [id number] 11:54:31 Test Item Value Reference Range Interpretation Comments POC-GLUCOSE METER 342 mg/dL 70-110 H : TESTED A T [facility] 6720 (BEAKER) (test code = [facility], 1538) 40938: Truck Driver Teamster/Techni bradford ID = [id number] for ELVIN SOTO [id number] 11:19:29 Test Item Value Reference Range Interpretation Comments RPR (test code = 15552-0) Nonreactive Nonreactive Lab Interpretation (test code = Normal 92739-7) [facility] Center[facility]PR2021-12-29 11:19:29 Test Item Value Reference Range Interpretation Comments RPR SCREEN (BEAKER) (test code = Nonreactive Nonreactive 420) POCT-GLUCOSE [id number] 07:44:28 Test Item Value Reference Range Interpretation Comments POC-GLUCOSE METER 384 mg/dL 70-110 H : TESTED A T [facility] [address] (BEAKER) (test code = HANNAH Karen [place], 1538) 39252: Truck Driver Teamster/Techni bradford ID = [id number] for ELVIN SOTO Limited 2D [id number] 07:38:10Ejection FractionSLEH ECHO HEARTLAB MKCKESSON [facility]High[facility] CenterBASIC METABOLIC [id number] 07:02:18 Test Item Value Reference Range Interpretation Comments SODIUM (BEAKER) 131 meq/L 136-145 L (test code = 381) POTASSIUM (BEAKER) 3.8 meq/L 3.5-5.1 Specimen slightly (test code = 379) hemolyzed CHLORIDE (BEAKER) 98 meq/L 98-107 (test code = 382) CO2 (BEAKER) (test 26 meq/L 22-29 code = 355) BLOOD UREA NITROGEN 14 mg/dL 7-21 (BEAKER) (test code = 354) CREATININE (BEAKER) 0.85 mg/dL 0.57-1.25 Specimen slightly (test code = 358) hemolyzed GLUCOSE RANDOM 441 mg/dL 70-105 HH (BEAKER) (test code = 652) CALCIUM (BEAKER) 9.0 mg/dL 8.4-10.2 (test code = 697) EGFR (BEAKER) (test 89 mL/min/1.73 ESTIMA CHILANGO GFR IS code = 1092) sq m NOT ACCURATE CREATININE CLEARANCE IN PREDICTING GLOMERULAR FILTRATION RATE . ESTIMATED GFR I S NOT APPLICABLE FOR DIALYSIS PATIEN TS. 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 - PICLARISA [id number] 06:45:30 Test Item Value Reference Range Interpretation Comments MAGNESIUM (BEAKER) 1.5 mg/dL 1.6-2.6 L Specimen slightly (test code = 627) hemolyzed 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 - KJ [id number] 06:45:30 Test Item Value Reference Range Interpretation Comments PHOSPHORUS (BEAKER) 1.8 mg/dL 2.3-4.7 L Specimen slightly (test code = 604) hemolyzed 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 - PIAYA LCBC (HEMOGRAM ONLY)2021-09-07 06:02:48 Test Item Value Reference Range Interpretation Comments WHITE BLOOD CELL COUNT (BEAKER) 2.1 K/ L 3.5-10.5 L (test code = 775) RED BLOOD CELL COUNT (BEAKER) 4.71 M/ L 4.63-6.08 (test code = 761) HEMOGLOBIN (BEAKER) (test code = 10.9 GM/DL 13.7-17.5 L 410) HEMATOCRIT (BEAKER) (test code = 36.0 % 40.1-51.0 L 411) MEAN CORPUSCULAR VOLUME (BEAKER) 76.4 fL 79.0-92.2 L (test code = 753) MEAN CORPUSCULAR HEMOGLOBIN 23.1 pg 25.7-32.2 L (BEAKER) (test code = 751) MEAN CORPUSCULAR HEMOGLOBIN CONC 30.3 GM/DL 32.3-36.5 L (BEAKER) (test code = 752) RED CELL DISTRIBUTION WIDTH 16.8 % 11.6-14.4 H (BEAKER) (test code = 412) PLATELET COUNT (BEAKER) (test code 72 K/CU MM 150-450 L = 756) NUCLEATED RED BLOOD CELLS (BEAKER) 0 /100 WBC 0-0 (test code = 413) POCT-GLUCOSE [id number] 21:56:22 Test Item Value Reference Range Interpretation Comments POC-GLUCOSE METER 237 mg/dL 70-110 H : TESTED A T [facility] 6720 (BEAKER) (test code = [place], 1538) [id number]: Truck Driver Teamster/Techni bradford ID = [id number] for Cresencio Agustin tilley MR, BRAIN, WITHOUT [id number] 20:29:00Referring: Dr. Oneil Unlisted Reason for Exam - Click Yes and Enter Reason Below->NoDeos the patient have an implanted electronic device?->No [facility] : 1950 Sex: MFINAL REPORT MR, BRAIN, WITHOUT CONTRAST INDICATION: Neuro deficit, acute, stroke suspected TECHNIQUE: Multiplanar, multisequence MR imaging of the brain was obtained.COMPARISON: None FINDINGS:Small acute infarcts scattered throughout the right MCA LAB MANAGER territories within the posterior frontal, parietal and occipital lobe. No hemorrhagic conversion or significant mass effect. Scattered few T2/FLAIR hyperintense foci within the periventricular and subcortical white matter are nonspecific No hydrocephalus. Orbits are within normal limits. No obstructive paranasal sinus disease. IMPRESSION: Small acute infarcts scattered throughout the right MCA LAB MANAGER territories within the posterior frontal, parietal and occipital lobe. No hemorrhagic conversion or significant mass effect. Signed: Ginette Pardo MDReport Verified Date/Time: 09/06/2021 20:29:07 High Sens Trop I ([facility]/[place] Only)2021-09-06 20:15:21 Test Item Value Reference Range Interpretation Comments Troponin I HS 2810 pg/ml See_Comment HH [Automated (test code = message] The 30181-7) system which generated this result transmitted reference range : <=35. The reference range was not used to interpret this result as normal/abnormal . SRAVANTHI (test code = 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 - SRAVANTHI) FSEThe SWITCH CREW SUPERVISOR STAT High Sensitivity Troponin-I results should be used in conjunction with other diagnostic information such as ECG, clinical observations and information, and patient symptoms to aid in the diagnosis of DE. Lab Interpretation Abnormal (test code = 60640-2) [facility]OPON[facility] [id number] 20:15:21 Test Item Value Reference Range Interpretation Comments HIGH SENSITIVITY 2810 pg/ml See_Comment HH [Automated message] TROPONIN I (test code The sy stem which = [id number]) generated this result transmitted ref erence range: <=35. Th e reference range was not used to int erpret this result as normal/abnormal . 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 - FSEThe SWITCH CREW SUPERVISOR STAT High Sensitivity Troponin-I results should be used in conjunction with other diagnostic information such as ECG, clinical observations and information, and patient symptoms to aid in the diagnosis of DE.SARS-COV2/RT-PCR ([facility])2021-09-06 19:34:48 Test Item Value Reference Range Interpretation Comments SARS-COV2/RT-PCR Negative Negative The SARS-Co V-2 target (test code = nucleic acids a re not [id number]) detected in thi s specimen. Negative result s do not preclude SARS-C oV-2 infection and s hould not be used as the gloria e basis for patient managem ent decisions. Nega tive results must be combine d with clinical observ ations, patient history , and epidemiological information. A false negativ e result may occur if a spec imen is improperly jerrell ected, transported or handled. This SARS CoV-2 test is a rapid, real-ok e RT-PCR test intended for th e qualitative detection of nu cleic acid from SARS-CoV-2 in a nasopharyngeal swab specimen collected from individuals suspected of CO VID-19 by their healthcar e provider. This test has been authorized by FDA under an EUA for use by authorized laboratories. This test is only authorized for the duration of the declaration that circumstances exist justifying the authorization of emergency use of in vitro diagnostic tests for detection and/or diagnosis of COVID-19 under Section 564(b)(1) of the Federal Food, Drug and Cosmetic Act, 21 U.S.C. 360bbb- 3(b)(1), unless the authorization is terminated or revoked sooner. Fact Sheet for Healthcare Providers: https://www.Scan•Jour.[employer]/Documents/Xpert%20Xpress%20SARS%20CoV-2/Fact%20Sheets/302-1740%20SARS-COV -2%20HEALTHCARE%20PROVIDERS%20FACT%20SHEET.pdf Fact Sheet for Healthcare Patients: https://www.[employer]/Documents/Xpert %20Xpress%20SARS%20CoV-2/Fact%20Sheets/302-3801%14CCSO-ZXJ-5%20PATIENT%20FACT%20 SHEET.pdfRAD, CHEST, 1 VIEW, NON [id number] 15:42:00Referring: Dr. Oneil Reason for exam:->TRANSIENT ISCHEMIC ATTACKShould [facility] be [facility]?->Yes[facility] : 1950 Sex: MFINAL REPORT Chest, 1 view. History: TIA. Comparison: 08/15/2021. Di scussion: Left-sided PICC line is no longer present. The trachea is midline. The lungs are symmetrically expanded without evidence of focal consolidation, pneumothorax, or significant pleural effusion. The cardiomediastinal silhouette stable in appearance. No acute osseous abnormalities identified. IMPRESSION: No acute cardiopulmonary process significant interval change identified from 08/15/2021.Signed: Esteban Higgins Verified Date/Time: 09/06/2021 15:42:57 Reading Location: [address] Reading Room REHENSIVE METABOLIC [id number] 15:27:28 Test Item Value Reference Range Interpretation Comments TOTAL PROTEIN 6.7 gm/dL 6.0-8.3 (BEAKER) (test code = 770) ALBUMIN (BEAKER) 3.1 g/dL 3.5-5.0 L (test code = 1145) ALKALINE PHOSPHATASE 96 U/L 40-150 (BEAKER) (test code = 346) BILIRUBIN TOTAL 1.3 mg/dL 0.2-1.2 H (BEAKER) (test code = 377) SODIUM (BEAKER) (test 132 meq/L 136-145 L code = 381) POTASSIUM (BEAKER) 3.4 meq/L 3.5-5.1 L (test code = 379) CHLORIDE (BEAKER) 96 meq/L 98-107 L (test code = 382) CO2 (BEAKER) (test 32 meq/L 22-29 H code = 355) BLOOD UREA NITROGEN 10 mg/dL 7-21 (BEAKER) (test code = 354) CREATININE (BEAKER) 0.79 mg/dL 0.57-1.25 (test code = 358) GLUCOSE RANDOM 306 mg/dL 70-105 H (BEAKER) (test code = 652) CALCIUM (BEAKER) 9.2 mg/dL 8.4-10.2 (test code = 697) AST (SGOT) (BEAKER) 17 U/L 5-34 (test code = 353) ALT (SGPT) (BEAKER) 13 U/L 6-55 (test code = 347) EGFR (BEAKER) (test 97 mL/min/1.73 ESTIMA CHILANGO GFR IS code = 1092) sq m NOT ACCURATE CREATININE CLEARANCE IN PREDICTING GLOMERULAR FILTRATION RATE . ESTIMATED GFR I S NOT APPLICABLE FOR DIALYSIS PATIEN TS. 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 - BSHIGH SENSITIVITY TROPONIN [id number] 14:55:27 Test Item Value Reference Range Interpretation Comments HIGH SENSITIVITY 3188 pg/ml See_Comment HH [Automated message] TROPONIN I (test code The stem which = [id number]) generated this result transmitted ref erence range: <=35. Th e reference range was not used to int erpret this result as normal/abnormal . 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 - PIAYA LThe SWITCH CREW SUPERVISOR STAT High Sensitivity Troponin-I results should be used in conjunction with other diagnostic information such as ECG, clinical observations and information, and patient symptoms to aid in the diagnosis of DE.B-TYPE NATRIURETIC FACTOR (BNP)2021-09-06 14:43:38 Test Item Value Reference Range Interpretation Comments B-TYPE NATRIURETIC PEPTIDE (BEAKER) 23 pg/mL 0-100 (test code = 700) 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 - PIAYA LCBC W/PLT COUNT & AUTO [id number] 14:22:02 Test Item Value Reference Range Interpretation Comments WHITE BLOOD CELL COUNT (BEAKER) 2.5 K/ L 3.5-10.5 L (test code = 775) RED BLOOD CELL COUNT (BEAKER) 4.67 M/ L 4.63-6.08 (test code = 761) HEMOGLOBIN (BEAKER) (test code = 10.7 GM/DL 13.7-17.5 L 410) HEMATOCRIT (BEAKER) (test code = 34.9 % 40.1-51.0 L 411) MEAN CORPUSCULAR VOLUME (BEAKER) 74.7 fL 79.0-92.2 L (test code = 753) MEAN CORPUSCULAR HEMOGLOBIN 22.9 pg 25.7-32.2 L (BEAKER) (test code = 751) MEAN CORPUSCULAR HEMOGLOBIN CONC 30.7 GM/DL 32.3-36.5 L (BEAKER) (test code = 752) RED CELL DISTRIBUTION WIDTH 16.6 % 11.6-14.4 H (BEAKER) (test code = 412) PLATELET COUNT (BEAKER) (test code 63 K/CU MM 150-450 L = 756) MEAN PLATELET VOLUME (BEAKER) 9.8 fL 9.4-12.4 (test code = 754) NUCLEATED RED BLOOD CELLS (BEAKER) 0 /100 WBC 0-0 (test code = 413) NEUTROPHILS RELATIVE PERCENT 59 % (BEAKER) (test code = 429) LYMPHOCYTES RELATIVE PERCENT 23 % (BEAKER) (test code = 430) MONOCYTES RELATIVE PERCENT 12 % (BEAKER) (test code = 431) EOSINOPHILS RELATIVE PERCENT 5 % (BEAKER) (test code = 432) BASOPHILS RELATIVE PERCENT 1 % (BEAKER) (test code = 437) NEUTROPHILS ABSOLUTE COUNT 1.46 K/ L 1.78-5.38 L (BEAKER) (test code = 670) LYMPHOCYTES ABSOLUTE COUNT 0.57 K/ L 1.32-3.57 L (BEAKER) (test code = 414) MONOCYTES ABSOLUTE COUNT (BEAKER) 0.29 K/ L 0.30-0.82 L (test code = 415) EOSINOPHILS ABSOLUTE COUNT 0.13 K/ L 0.04-0.54 (BEAKER) (test code = 416) BASOPHILS ABSOLUTE COUNT (BEAKER) 0.02 K/ L 0.01-0.08 (test code = 417) IMMATURE GRANULOCYTES-RELATIVE 0 % 0-1 PERCENT (BEAKER) (test code = 2801) Hemoglobin [id number] 14:13:02 Test Item Value Reference Range Interpretation Comments Hemoglobin A1C (test code = 4548-4) 13.4 % 4.3-6.1 H Lab Interpretation (test code = Abnormal 36121-0) [facility]MO[facility]IN [id number] 14:13:02 Test Item Value Reference Range Interpretation Comments HEMOGLOBIN A1C (BEAKER) (test code = 13.4 % 4.3-6.1 H 368) TSH/Free T4 If [id number] 13:51:05 Test Item Value Reference Range Interpretation Comments TSH (test code = 2.169 See_Comment [Automated 82857-4) message] The system which generated this result transmit chilango reference range : 0.350 - 4.940 uIU/mL. The reference range was not used to interpret this result as normal/abnormal . SRAVANTHI (test code = SRAVANTHI) 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 - DERECKCLARISA Alcantara Lab Interpretation Normal (test code = 71868-7) [facility] CenterTSH/FREE T4 IF [id number] 13:51:05 Test Item Value Reference Range Interpretation Comments THYROID STIMULATING HORMONE 2.169 uIU/mL 0.350-4.940 (BEAKER) (test code = 772) Truck Driver Teamster ZI [place] LLipid [id number] 13:33:03 Test Item Value Reference Range Interpretation Comments Triglycerides (test 112 mg/dL code = 2571-8) Cholesterol (test code 121 mg/dL = 2093-3) HDL (test code = 31 mg/dL 5-9) LDL Calculated (test 68 mg/dL code = 48143-4) SRAVANTHI (test code = SRAVANTHI) Triglyceride Reference Range: Low Risk <150 Borderline 150-199 High Risk 200-499 Very High Risk >=500 Cholesterol Reference Range: Low Risk <200 Borderline 200-239 High Risk >240 HDL Cholesterol Reference Range: Low Risk >=60 High Risk <40 LDL Cholesterol Reference Range: Optimal <100 Near Optimal 100-129 Borderline 130-159 High 160-189 Very High >=190 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 - KJ Alcantara [facility] CenterLIPID [id number] 13:33:03 Test Item Value Reference Range Interpretation Comments TRIGLYCERIDES (BEAKER) (test code = 112 mg/dL 540) CHOLESTEROL (BEAKER) (test code = 121 mg/dL 631) HDL CHOLESTEROL (BEAKER) (test code 31 mg/dL = 976) LDL CHOLESTEROL CALCULATED (BEAKER) 68 mg/dL (test code = 633) Triglyceride Reference Range: Low Risk <150 Borderline 150-199 High Risk 200-499 Very High Risk >=500Cholesterol Reference Range: Low Risk <200 Borderline 200-239 High Risk >240HDL Cholesterol Reference Range: Low Risk >=60 High Risk <40LDL Cholesterol Reference Range: Optimal <100 Near Optimal 100-129 Borderline 130-159 High 160-189 Very High >=190 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 - KJLC-REACTIVE [id number] 13:33:03 Test Item Value Reference Range Interpretation Comments C-REACTIVE PROTEIN (ARTURAKER) (test 0.83 mg/dL 0.00-0.50 H code = 676) 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 - KJ [id number] 13:23:39 Test Item Value Reference Range Interpretation Comments PARTIAL THROMBOPLASTIN TIME 29.2 seconds 22.5-36.0 (ARTURAKER) (test code = 760) PROTHROMBIN [id number] 13:23:00 Test Item Value Reference Range Interpretation Comments PROTIME (ARTURAKER) 15.7 seconds 11.9-14.2 H (test code = 759) INR (ARTURAKER) (test 1.27 See_Comment [Automat ed message] code = 370) The system avocadostore generated this result transmitted ref erence range: <=5.90. The reference range was not used to int erpret this result as normal/abnormal . RECOMMENDED COUMADIN/WARFARIN INR THERAPY RANGESSTANDARD DOSE: 2.0 - 3.0 Includes: PROPHYLAXIS forvenous thrombosis, systemic embolization; TREATMENT for venous thrombosis and/or pulmonary embolus.HIGH RISK: Target INR is 2.5-3.5 for patients with mechanical heart valves.POCT-GLUCOSE [id number] 13:12:27 Test Item Value Reference Range Interpretation Comments POC-GLUCOSE METER 276 mg/dL 70-110 H : TESTED A T [facility] 6720 (SEAN) (test code = [place], 1538) [address]: Truck Driver Teamster/Techni bradford ID = [id number] for Niurka dennis (PCA2)Micki CT, CTANGIO [id number] 12:59:00Referring: Dr. Oneil Unlisted Reason for Exam - Click Yes and Enter Reason Below->No [facility] : 1950 Sex: MFINAL REPORT CT, CTANGIO BRAIN, CT, CAROTID, ANGIOBRAIN CT WITHOUT CONTRAST INDICATION: Neuro deficit, acute, stroke suspected COMPARISON: CT head of the same date TECHNIQUE:Rapid acquisition spiral images were obtained between the aortic arch and the cranial vertex during intravenous contrast infusion to reconstruct axial images and angiographic 3D maximum intensity projections (MIP). 3-D volumetric reformatted images were created at a dedicated workstation. Precontrast images of the brain were also obtained. Stenosis evaluation reported in compliance with NASCET criteria. DOSE REDUCTION: Dose modulation, iterative reconstruction, and/or weight-based adjustmentof the mA/kV was utilized to reduce the radiation dose to as low as reasonably achievable. FINDINGS:CTA BRAIN:Internal carotid arteries: Petrous, cavernous and supraclinoid portions patent. Middle cerebral arteries: Bilateral MCA M1-M2 branches demonstrate normal contrast enhancement.Anterior cerebral arteries: Bilateral VALDO A1-A2 branches demonstrate normal contrast enhancement.Basilar system: Normal contrast opacification of the vertebrobasilar system.Posterior cerebral arteries: Normal contrast opacification of the bilateral LAB MANAGER P1-P2 branches.Venous opacification: Major dural sinuses unremarkable for bolus timing.Additional findings: None. CTA NECK:Common carotid arteries: There is normal contrast opacification of the bilateral common carotid arteries.Cervical internal carotid arteries: Normal contrast opacification of the bilateral cervical internal carotid arteries without significant stenosis by NASCET criteria.Vertebral arteries: Normal contrast opacification of the bilateral cervical vertebral arteries.Arch anatomy: Conventional. Nonvascular findings:No acute findings within the necksoft tissues. IMPRESSION: Unremarkable CTA of the head and neck. Signed: Ginette Pardo MDReportVerified Date/Time: 09/06/2021 12:59:18 CT, CAROTID, [id number] 12:59:00Referring: Dr. Oneil Unlisted Reason for Exam - Click Yes and Enter Reason Below->No [facility] : 1950 Sex: MFINAL REPORT CT, CTANGIO BRAIN, CT, CAROTID, ANGIOBRAIN CT WITHOUT CONTRAST INDICATION: Neuro deficit, acute, stroke suspected COMPARISON: CT head of the same date TECHNIQUE:Rapid acquisition spiral images were obtained between the aortic arch and the cranial vertex during intravenous contrast infusion to reconstruct axial images and angiographic 3D maximum intensity projections (MIP). 3-D volumetric reformatted images were created at a dedicated workstation. Precontrast images of the brain were also obtained. Stenosis evaluation reported in compliance with NASCET criteria. DOSE REDUCTION: Dose modulation, iterative reconstruction, and/or weight-based adjustmentof the mA/kV was utilized to reduce the radiation dose to as low as reasonably achievable. FINDINGS:CTA BRAIN:Internal carotid arteries: Petrous, cavernous and supraclinoid portions patent. Middle cerebral arteries: Bilateral MCA M1-M2 branches demonstrate normal contrast enhancement.Anterior cerebral arteries: Bilateral VALDO A1-A2 branches demonstrate normal contrast enhancement.Basilar system: Normal contrast opacification of the vertebrobasilar system.Posterior cerebral arteries: Normal contrast opacification of the bilateral LAB MANAGER P1-P2 branches.Venous opacification: Major dural sinuses unremarkable for bolus timing.Additional findings: None. CTA NECK:Common carotid arteries: There is normal contrast opacification of the bilateral common carotid arteries.Cervical internal carotid arteries: Normal contrast opacification of the bilateral cervical internal carotid arteries without significant stenosis by NASCET criteria.Vertebral arteries: Normal contrast opacification of the bilateral cervical vertebral arteries.Arch anatomy: Conventional. Nonvascular findings:No acute findings within the necksoft tissues. IMPRESSION: Unremarkable CTA of the head and neck. Signed: Ginette Pardo MDReportVerified Date/Time: 09/06/2021 12:59:18 CT, BRAIN/STROKE [id number] 12:28:00Referring: Dr. [facility]ilM[facility] : 1950 Sex: MFINAL REPORT CT, BRAIN/STROKE PROTOCOL CLINICAL INDICATION: Ataxia, stroke suspected COMPARISON: None TECHNIQUE: Noncontrast axial CT imaging of the brain and skull. DOSE REDUCTION: Dose modulation, iterative reconstruction, and/or weight-based adjustment of the mA/kV was utilized to reduce the radiation dose to as low as reasonably achievable. FINDINGS:No intracranial hemorrhage, midline shift or mass effect. Midline structures are normally developed. Scattered foci of hypoattenuation are present throughout the periventricular and subcortical white matter, and, although nonspecific by imaging, statistically represent mild chronic microvascular ischemic changes in this age group.No hydrocephalus. Orbits are within normal limits. No obstructive paranasal sinus disease. IMPRESSION: No acute intracranial findings Findings discussed with ED staff by Dr. Pardo at time of this dictation. If there is persistent clinical concern for intracranial pathology, MR examination is recommended for further characterization. Signed: Ginette Pardo Verified Date/Time: 09/06/2021 12:28:43 BASI METABOLIC [id number] 11:52:35 Test Item Value Reference Range Interpretation Comments SODIUM (BEAKER) 132 meq/L 136-145 L (test code = 381) POTASSIUM (BEAKER) 3.9 meq/L 3.5-5.1 (test code = 379) CHLORIDE (BEAKER) 98 meq/L 98-107 (test code = 382) CO2 (BEAKER) (test 26 meq/L 22-29 code = 355) BLOOD UREA NITROGEN 13 mg/dL 7-21 (BEAKER) (test code = 354) CREATININE (BEAKER) 1.00 mg/dL 0.57-1.25 (test code = 358) GLUCOSE RANDOM 454 mg/dL 70-105 HH (BEAKER) (test code = 652) CALCIUM (BEAKER) 9.5 mg/dL 8.4-10.2 (test code = 697) EGFR (BEAKER) (test 74 mL/min/1.73 ESTIMA CHILANGO GFR IS code = 1092) sq m NOT ACCURATE CREATININE CLEARANCE IN PREDICTING GLOMERULAR FILTRATION RATE . ESTIMATED GFR I S NOT APPLICABLE FOR DIALYSIS PATIEN TS. 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 - CONE HEALTHEPATIC FUNCTION [id number] 11:03:30 Test Item Value Reference Range Interpretation Comments TOTAL PROTEIN (BEAKER) (test code = 7.3 gm/dL 6.0-8.3 770) ALBUMIN (BEAKER) (test code = 1145) 3.3 g/dL 3.5-5.0 L BILIRUBIN TOTAL (BEAKER) (test code 0.9 mg/dL 0.2-1.2 = 377) BILIRUBIN DIRECT (BEAKER) (test 0.3 mg/dL 0.1-0.5 code = 706) ALKALINE PHOSPHATASE (BEAKER) (test 115 U/L 40-150 code = 346) AST (SGOT) (BEAKER) (test code = 24 U/L 5-34 353) ALT (SGPT) (BEAKER) (test code = 20 U/L 6-55 347) 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 - JODIE FPROTHROMBIN [id number] 10:54:27 Test Item Value Reference Range Interpretation Comments PROTIME (BEAKER) 15.4 seconds 11.9-14.2 H (test code = 759) INR (BEAKER) (test 1.24 See_Comment [Automat ed message] code = 370) The system avocadostore generated this result transmitted ref erence range: <=5.90. The reference range was not used to int erpret this result as normal/abnormal . RECOMMENDED COUMADIN/WARFARIN INR THERAPY RANGESSTANDARD DOSE: 2.0 - 3.0 Includes: PROPHYLAXIS forvenous thrombosis, systemic embolization; TREATMENT for venous thrombosis and/or pulmonary embolus.HIGH RISK: Target INR is 2.5-3.5 for patients with mechanical heart valves.CBC W/PLT COUNT & AUTO DIFFERENTIAL 2021-08-29 10:38:21 Test Item Value Reference Range Interpretation Comments WHITE BLOOD CELL COUNT (BEAKER) 2.1 K/ L 3.5-10.5 L (test code = 775) RED BLOOD CELL COUNT (BEAKER) 4.76 M/ L 4.63-6.08 (test code = 761) HEMOGLOBIN (BEAKER) (test code = 11.2 GM/DL 13.7-17.5 L 410) HEMATOCRIT (BEAKER) (test code = 36.0 % 40.1-51.0 L 411) MEAN CORPUSCULAR VOLUME (BEAKER) 75.6 fL 79.0-92.2 L (test code = 753) MEAN CORPUSCULAR HEMOGLOBIN 23.5 pg 25.7-32.2 L (BEAKER) (test code = 751) MEAN CORPUSCULAR HEMOGLOBIN CONC 31.1 GM/DL 32.3-36.5 L (BEAKER) (test code = 752) RED CELL DISTRIBUTION WIDTH 16.6 % 11.6-14.4 H (BEAKER) (test code = 412) PLATELET COUNT (BEAKER) (test code 74 K/CU MM 150-450 L = 756) MEAN PLATELET VOLUME (BEAKER) 10.6 fL 9.4-12.4 (test code = 754) NUCLEATED RED BLOOD CELLS (BEAKER) 0 /100 WBC 0-0 (test code = 413) NEUTROPHILS RELATIVE PERCENT 67 % (BEAKER) (test code = 429) LYMPHOCYTES RELATIVE PERCENT 17 % (BEAKER) (test code = 430) MONOCYTES RELATIVE PERCENT 10 % (BEAKER) (test code = 431) EOSINOPHILS RELATIVE PERCENT 6 % (BEAKER) (test code = 432) BASOPHILS RELATIVE PERCENT 1 % (BEAKER) (test code = 437) NEUTROPHILS ABSOLUTE COUNT 1.37 K/ L 1.78-5.38 L (BEAKER) (test code = 670) LYMPHOCYTES ABSOLUTE COUNT 0.34 K/ L 1.32-3.57 L (BEAKER) (test code = 414) MONOCYTES ABSOLUTE COUNT (BEAKER) 0.20 K/ L 0.30-0.82 L (test code = 415) EOSINOPHILS ABSOLUTE COUNT 0.12 K/ L 0.04-0.54 (BEAKER) (test code = 416) BASOPHILS ABSOLUTE COUNT (BEAKER) 0.02 K/ L 0.01-0.08 (test code = 417) IMMATURE GRANULOCYTES-RELATIVE 0 % 0-1 PERCENT (BEAKER) (test code = 2801) BLOOD [id number] 18:00:46 Test Item Value Reference Range Interpretation Comments CULTURE (BEAKER) (test No growth in 5 days code = 1095) BLOOD [id number] 18:00:46 Test Item Value Reference Range Interpretation Comments CULTURE (BEAKER) (test No growth in 5 days code = 1095) POCT-GLUCOSE [id number] 16:26:07 Test Item Value Reference Range Interpretation Comments POC-GLUCOSE METER 157 mg/dL 70-110 H : TESTED A T [facility] 6720 (BEAKER) (test code = [facility], 1538) [address]: Truck Driver Teamster/Techni bradford ID = [id number] for Eva Cotton BLOOD [id number] 13:00:39 Test Item Value Reference Range Interpretation Comments CULTURE (BEAKER) (test No growth in 5 days code = 1095) The specimen volume collected for this blood culture was below the optimum (10 mL per bottle or 20 mL total). Use of lower volumes may adversely affect recovery and/or detection times of some organisms.POCT-GLUCOSE [id number] 12:14:43 Test Item Value Reference Range Interpretation Comments POC-GLUCOSE METER 150 mg/dL 70-110 H : TESTED A T [facility] 6720 (BEAKER) (test code = [place], 1538) 10[address]: Truck Driver Teamster/Techni bradford ID = [id number] for Eva Cotton (CELLAVISION MANUAL DIFF)2021-08-16 09:26:49 Test Item Value Reference Range Interpretation Comments NEUTROPHILS - REL 56 % (CELLAVISION)(BEAKER) (test code = 2816) LYMPHOCYTES - REL 25 % (CELLAVISION)(BEAKER) (test code = 2817) MONOCYTES - REL 9 % (CELLAVISION)(BEAKER) (test code = 2818) EOSINOPHILS - REL 8 % (CELLAVISION)(BEAKER) (test code = 2819) BASOPHILS - REL 2 % (CELLAVISION)(BEAKER) (test code = 2820) ATYPICAL LYMPHOCYTES - REL 1 % 0-0 H (CELLAVISION)(BEAKER) (test code = 2829) NEUTROPHILS - ABS 0.90 K/ul 1.78-5.38 L (CELLAVISION)(BEAKER) (test code = 2830) LYMPHOCYTES - ABS 0.40 K/ul 1.32-3.57 L (CELLAVISION)(BEAKER) (test code = 2831) MONOCYTES - ABS 0.14 K/uL 0.30-0.82 L (CELLAVISION)(BEAKER) (test code = 2832) EOSINOPHILS - ABS 0.13 K/uL 0.04-0.54 (CELLAVISION)(BEAKER) (test code = 2834) BASOPHILS - ABS 0.03 K/uL 0.01-0.08 (CELLAVISION)(BEAKER) (test code = 2835) ATYPICAL LYMPHOCYTES - ABS 0.02 K/uL 0.00-0.00 H (CELLAVISION)(BEAKER) (test code = 2858) TOTAL COUNTED (BEAKER) (test code 100 = 1351) WBC MORPHOLOGY (BEAKER) (test Normal code = 487) PLT MORPHOLOGY (BEAKER) (test Normal code = 486) POLYCHROMATOPHILLIC RBCS(BEAKER) 1+ few (test code = 478) ANISOCYTOSIS (BEAKER) (test code 2+ moderate = 961) MICROCYTES (BEAKER) (test code = 2+ moderate 965) POIKILOCYTES (BEAKER) (test code 1+ few = 966) TEAR DROP CELLS (BEAKER) (test 1+ few code = 481) ACANTHOCYTES (BEAKER) (test code 1+ few = 471) BASOPHILIC STIPPLING (BEAKER) Present (test code = 473) PLATELET CONCENTRATION Decreased (CELLAVISION)(BEAKER) (test code = 3438) 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 - Sandra De La Rosa comments: Slide comments:CBC W/PLT COUNT & AUTO [id number] 09:26:47 Test Item Value Reference Range Interpretation Comments WHITE BLOOD CELL COUNT (BEAKER) 1.6 K/ L 3.5-10.5 L (test code = 775) RED BLOOD CELL COUNT (BEAKER) 4.37 M/ L 4.63-6.08 L (test code = 761) HEMOGLOBIN (BEAKER) (test code = 10.2 GM/DL 13.7-17.5 L 410) HEMATOCRIT (BEAKER) (test code = 33.9 % 40.1-51.0 L 411) MEAN CORPUSCULAR VOLUME (BEAKER) 77.6 fL 79.0-92.2 L (test code = 753) MEAN CORPUSCULAR HEMOGLOBIN 23.3 pg 25.7-32.2 L (BEAKER) (test code = 751) MEAN CORPUSCULAR HEMOGLOBIN CONC 30.1 GM/DL 32.3-36.5 L (BEAKER) (test code = 752) RED CELL DISTRIBUTION WIDTH 18.1 % 11.6-14.4 H (BEAKER) (test code = 412) PLATELET COUNT (BEAKER) (test code 76 K/CU MM 150-450 L = 756) MEAN PLATELET VOLUME (BEAKER) 10.6 fL 9.4-12.4 (test code = 754) NUCLEATED RED BLOOD CELLS (BEAKER) 0 /100 WBC 0-0 (test code = 413) BLOOD [id number] 09:24:37 Test Item Value Reference Interpretation Comments Range CULTURE (BEAKER) ESCHERICHIA COLI A From Ae robic Bottle (test code = 1095) Only Esch erichia coli Amikacin (test code = S 1) Ampicillin + S Sulbactam (test code = 6) Aztreonam (test code S = 32) Cefepime (test code = S 51) Cefoxitin (test code S = 68) Ceftazidime (test S code = 27) Ceftriaxone (test S code = 52) Ertapenem (test code S = 38) Gentamicin (test code S = 18) Levofloxacin (test R code = 22) Meropenem (test code S = 34) Nitrofurantoin (test S code = 23) Piperacillin + S Tazobactam (test code = 29) Tetracycline (test S code = 2) Tobramycin (test code S = 25) Trimethoprim + S Sulfamethoxazole (test code = 47) CULTURE (BEAKER) A From Aerobi c Bottle (test code = 1095) Only Coag ulase negative Staphylococcus GRAM STAIN RESULT From aerobic (BEAKER) (test code = bottle only: 1123) gram negative rods GRAM STAIN RESULT From aerobic (BEAKER) (test code = bottle only: 626189) gram positive cocci in clusters POCT-GLUCOSE [id number] 08:06:52 Test Item Value Reference Range Interpretation Comments POC-GLUCOSE METER 181 mg/dL 70-110 H : [facility] ([facility]ER[facility] (test code = [place], 1538) [id number]: Truck Driver Teamster/Techni bradford ID = [id number] for Eva Cotton BASIC METABOLIC [id number] 06:18:14 Test Item Value Reference Range Interpretation Comments SODIUM (BEAKER) 134 meq/L 136-145 L (test code = 381) POTASSIUM (BEAKER) 4.0 meq/L 3.5-5.1 (test code = 379) CHLORIDE (BEAKER) 104 meq/L 98-107 (test code = 382) CO2 (BEAKER) (test 25 meq/L 22-29 code = 355) BLOOD UREA NITROGEN 10 mg/dL 7-21 (BEAKER) (test code = 354) CREATININE (BEAKER) 0.70 mg/dL 0.57-1.25 (test code = 358) GLUCOSE RANDOM 229 mg/dL 70-105 H (BEAKER) (test code = 652) CALCIUM (BEAKER) 8.8 mg/dL 8.4-10.2 (test code = 697) EGFR (BEAKER) (test 112 mL/min/1.73 ESTIM ATED GFR IS code = 1092) sq m NOT ACCURATE CREATININE CLEARANCE IN PREDICTING GLOMERULAR FILTRATION RATE . ESTIMATED GFR I S NOT APPLICABLE FOR DIALYSIS PATIEN TS. 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 - [place] GPOCT-GLUCOSE [id number] 20:00:06 Test Item Value Reference Range Interpretation Comments POC-GLUCOSE METER 186 mg/dL 70-110 H : TESTED A T [facility] 6720 [facility] (test code = [facility], 1538) [id number]: Truck Driver Teamster/Techni bradford ID = [id number] for ROBERT FAJARDO POCT-GLUCOSE [id number] 18:40:52 Test Item Value Reference Range Interpretation Comments POC-GLUCOSE METER 198 mg/dL 70-110 H : TESTED A T [facility] 6720 ([employer]) (test code = [facility], 1538) 97569: Truck Driver Teamster/Techni bradford ID = [id number] for Remy goodman (contract)[place] RAD, CHEST, 1 VIEW, NON [id number] 12:09:00Referring: Dr. Oneil Reason for exam:->PICC LINE PLACEMENTShould this be performed at the bedside?->Yes [facility] : 1950 Sex: MFINAL REPORT RAD, CHEST, 1 VIEW, NON DEPT INDICATION: PICC LINE MALCOM CEMENT COMPARISON: April 07, 2021 FINDINGS: Portable frontal view of the chest. IMPRESSION: Support Lines: Left PICC terminates over the superior vena cava. Lungs and pleura: No consolidation. No pneumothorax.Heart and mediastinum: Stable contours. Additional findings: None. Signed: JR Janeth, Rickey Beverly Verified Date/Time: 08/15/2021 12:09:53 [facility] POCT-GLUCOSE [id number] 12:07:53 Test Item Value Reference Range Interpretation Comments POC-GLUCOSE METER 152 mg/dL 70-110 H : TESTED A T [facility] 6720 (BEAKER) (test code = [facility], 1538) [id number]: Truck Driver Teamster/Techni bradford ID = [id number] for [place] (contract), [place] izabela POCT-GLUCOSE [id number] 08:13:33 Test Item Value Reference Range Interpretation Comments POC-GLUCOSE METER 227 mg/dL 70-110 H : TESTED A T [facility] 6720 (BEAKER) (test code = [facility], 1538) [id number]: Truck Driver Teamster/Techni bradford ID = [id number] for [place] l[place] (contract), [place] izabela (CELLAVISION MANUAL DIFF)2021-08-15 07:45:00 Test Item Value Reference Range Interpretation Comments NEUTROPHILS - REL 63 % (CELLAVISION)(BEAKER) (test code = 2816) LYMPHOCYTES - REL 25 % (CELLAVISION)(BEAKER) (test code = 2817) MONOCYTES - REL 8 % (CELLAVISION)(BEAKER) (test code = 2818) EOSINOPHILS - REL 4 % (CELLAVISION)(BEAKER) (test code = 2819) NEUTROPHILS - ABS 1.20 K/ul 1.78-5.38 L (CELLAVISION)(BEAKER) (test code = 2830) LYMPHOCYTES - ABS 0.48 K/ul 1.32-3.57 L (CELLAVISION)(BEAKER) (test code = 2831) MONOCYTES - ABS 0.15 K/uL 0.30-0.82 L (CELLAVISION)(BEAKER) (test code = 2832) EOSINOPHILS - ABS 0.08 K/uL 0.04-0.54 (CELLAVISION)(BEAKER) (test code = 2834) TOTAL COUNTED (BEAKER) (test code 100 = 1351) MANUAL NRBC PER 100 CELLS (BEAKER) 1 /100 WBC 0-0 H (test code = 1353) WBC MORPHOLOGY (BEAKER) (test code Normal = 487) PLT MORPHOLOGY (BEAKER) (test code Normal = 486) ANISOCYTOSIS (BEAKER) (test code = 1+ few 961) MICROCYTES (BEAKER) (test code = 1+ few 965) POIKILOCYTES (BEAKER) (test code = 1+ few 966) ELLIPTOCYTES (BEAKER) (test code = 1+ few 962) ARTIFACT (CELLAVISION)(BEAKER) Present (test code = 3432) PLATELET CONCENTRATION Decreased (CELLAVISION)(BEAKER) (test code = 3438) 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 - [id number] ID - yonis Manuel comments: Slide comments:CBC W/PLT COUNT & AUTO [id number] 07:44:54 Test Item Value Reference Range Interpretation Comments WHITE BLOOD CELL COUNT (BEAKER) 1.9 K/ L 3.5-10.5 L (test code = 775) RED BLOOD CELL COUNT (BEAKER) 4.55 M/ L 4.63-6.08 L (test code = 761) HEMOGLOBIN (BEAKER) (test code = 10.7 GM/DL 13.7-17.5 L 410) HEMATOCRIT (BEAKER) (test code = 36.1 % 40.1-51.0 L 411) MEAN CORPUSCULAR VOLUME (BEAKER) 79.3 fL 79.0-92.2 (test code = 753) MEAN CORPUSCULAR HEMOGLOBIN 23.5 pg 25.7-32.2 L (BEAKER) (test code = 751) MEAN CORPUSCULAR HEMOGLOBIN CONC 29.6 GM/DL 32.3-36.5 L (BEAKER) (test code = 752) RED CELL DISTRIBUTION WIDTH 18.1 % 11.6-14.4 H (BEAKER) (test code = 412) PLATELET COUNT (BEAKER) (test code 81 K/CU MM 150-450 L = 756) MEAN PLATELET VOLUME (BEAKER) 11.2 fL 9.4-12.4 (test code = 754) NUCLEATED RED BLOOD CELLS (BEAKER) 0 /100 WBC 0-0 (test code = 413) BASIC METABOLIC [id number] 07:28:44 Test Item Value Reference Range Interpretation Comments SODIUM (BEAKER) 133 meq/L 136-145 L (test code = 381) POTASSIUM (BEAKER) 4.2 meq/L 3.5-5.1 (test code = 379) CHLORIDE (BEAKER) 103 meq/L 98-107 (test code = 382) CO2 (BEAKER) (test 24 meq/L 22-29 code = 355) BLOOD UREA NITROGEN 12 mg/dL 7-21 (BEAKER) (test code = 354) CREATININE (BEAKER) 0.73 mg/dL 0.57-1.25 (test code = 358) GLUCOSE RANDOM 286 mg/dL 70-105 H (BEAKER) (test code = 652) CALCIUM (BEAKER) 9.1 mg/dL 8.4-10.2 (test code = 697) EGFR (BEAKER) (test 107 mL/min/1.73 ESTIM ATED GFR IS code = 1092) sq m NOT ACCURATE CREATININE CLEARANCE IN PREDICTING GLOMERULAR FILTRATION RATE . ESTIMATED GFR I S NOT APPLICABLE FOR DIALYSIS PATIEN TS. 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 - KELSIE MPOCT-GLUCOSE [id number] 21:27:02 Test Item Value Reference Range Interpretation Comments POC-GLUCOSE METER 245 mg/dL 70-110 H : TESTED A T [facility] 6720 (BEAKER) (test code = [facility], 1538) 46256: Truck Driver Teamster/Techni bradford ID = [id number] for Edgar arminchelly (contract)Lexi POCT-GLUCOSE [id number] 16:08:36 Test Item Value Reference Range Interpretation Comments POC-GLUCOSE METER 204 mg/dL 70-110 H : TESTED A T [facility] 6720 (BEAKER) (test code = [facility], 1538) 75698: Truck Driver Teamster/Techni bradford ID = [id number] for Lacho Clarke POCT-GLUCOSE [id number] 12:26:54 Test Item Value Reference Range Interpretation Comments POC-GLUCOSE METER 394 mg/dL 70-110 H : TESTED A T [facility] 6720 (BEAKER) (test code = [facility], 1538) 26473: Truck Driver Teamster/Techni bradford ID = [id number] for Lacho Clarke WOUND CULTURE + GRAM [id number] 10:01:55 Test Item Value Reference Range Interpretation Comments CULTURE (BEAKER) (test code See comment = 1095) GRAM STAIN RESULT (BEAKER) 1+ WBCs (test code = 1123) GRAM STAIN RESULT (BEAKER) No organisms seen (test code = 939446) 1+ Enteric organisms of >2 typesWound culture + gram [id number] 10:00:44 Test Item Value Reference Range Interpretation Comments Result (test code = See comment 6463-4) Gram Stain Result No organisms seen (test code = 1123) SRAVANTHI (test code = SRAVANTHI) 1+ Enteric organisms of >3 types [facility] [id number] 10:00:44 Test Item Value Reference Range Interpretation Comments CULTURE (BEAKER) (test code See comment = 1095) GRAM STAIN RESULT (BEAKER) 1+ WBCs (test code = 1123) GRAM STAIN RESULT (BEAKER) No organisms seen (test code = 616071) 1+ Enteric organisms of >3 typesPOCT-GLUCOSE [id number] 08:25:03 Test Item Value Reference Range Interpretation Comments POC-GLUCOSE METER 258 mg/dL 70-110 H : TESTED A T [facility] 6720 (BEAKER) (test code = [place], 1538) 26310: Truck Driver Teamster/Techni bradford ID = [id number] for Lacho Clarke (CELLAVISION MANUAL DIFF)2021-08-14 06:42:48 Test Item Value Reference Range Interpretation Comments NEUTROPHILS - REL 69 % (CELLAVISION)(BEAKER) (test code = 2816) LYMPHOCYTES - REL 23 % (CELLAVISION)(BEAKER) (test code = 2817) MONOCYTES - REL 6 % (CELLAVISION)(BEAKER) (test code = 2818) EOSINOPHILS - REL 1 % (CELLAVISION)(BEAKER) (test code = 2819) ATYPICAL LYMPHOCYTES - REL 1 % 0-0 H (CELLAVISION)(BEAKER) (test code = 2829) NEUTROPHILS - ABS 1.31 K/ul 1.78-5.38 L (CELLAVISION)(BEAKER) (test code = 2830) LYMPHOCYTES - ABS 0.44 K/ul 1.32-3.57 L (CELLAVISION)(BEAKER) (test code = 2831) MONOCYTES - ABS 0.11 K/uL 0.30-0.82 L (CELLAVISION)(BEAKER) (test code = 2832) EOSINOPHILS - ABS 0.02 K/uL 0.04-0.54 L (CELLAVISION)(BEAKER) (test code = 2834) ATYPICAL LYMPHOCYTES - ABS 0.02 K/uL 0.00-0.00 H (CELLAVISION)(BEAKER) (test code = 2858) TOTAL COUNTED (BEAKER) (test code = 100 1351) WBC MORPHOLOGY (BEAKER) (test code Normal = 487) PLT MORPHOLOGY (BEAKER) (test code Normal = 486) ANISOCYTOSIS (BEAKER) (test code = 1+ few 961) MICROCYTES (BEAKER) (test code = 1+ few 965) POIKILOCYTES (BEAKER) (test code = 1+ few 966) SPHEROCYTES (BEAKER) (test code = 1+ few 768) ARTIFACT (CELLAVISION)(BEAKER) Present (test code = 3432) PLATELET CONCENTRATION Decreased (CELLAVISION)(BEAKER) (test code = 3438) 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 - [id number] ID - JudeSharonsriram comments: Slide comments:CBC W/PLT COUNT & AUTO [id number] 06:42:46 Test Item Value Reference Range Interpretation Comments WHITE BLOOD CELL COUNT (BEAKER) 1.9 K/ L 3.5-10.5 L (test code = 775) RED BLOOD CELL COUNT (BEAKER) 4.28 M/ L 4.63-6.08 L (test code = 761) HEMOGLOBIN (BEAKER) (test code = 10.0 GM/DL 13.7-17.5 L 410) HEMATOCRIT (BEAKER) (test code = 33.6 % 40.1-51.0 L 411) MEAN CORPUSCULAR VOLUME (BEAKER) 78.5 fL 79.0-92.2 L (test code = 753) MEAN CORPUSCULAR HEMOGLOBIN 23.4 pg 25.7-32.2 L (BEAKER) (test code = 751) MEAN CORPUSCULAR HEMOGLOBIN CONC 29.8 GM/DL 32.3-36.5 L (BEAKER) (test code = 752) RED CELL DISTRIBUTION WIDTH 18.1 % 11.6-14.4 H (BEAKER) (test code = 412) PLATELET COUNT (BEAKER) (test code 66 K/CU MM 150-450 L = 756) MEAN PLATELET VOLUME (BEAKER) 10.8 fL 9.4-12.4 (test code = 754) NUCLEATED RED BLOOD CELLS (BEAKER) 0 /100 WBC 0-0 (test code = 413) BASIC METABOLIC [id number] 05:02:35 Test Item Value Reference Range Interpretation Comments SODIUM (BEAKER) 134 meq/L 136-145 L (test code = 381) POTASSIUM (BEAKER) 3.9 meq/L 3.5-5.1 (test code = 379) CHLORIDE (BEAKER) 104 meq/L 98-107 (test code = 382) CO2 (BEAKER) (test 26 meq/L 22-29 code = 355) BLOOD UREA NITROGEN 9 mg/dL 7-21 (BEAKER) (test code = 354) CREATININE (BEAKER) 0.69 mg/dL 0.57-1.25 (test code = 358) GLUCOSE RANDOM 251 mg/dL 70-105 H (BEAKER) (test code = 652) CALCIUM (BEAKER) 8.8 mg/dL 8.4-10.2 (test code = 697) EGFR (BEAKER) (test 114 mL/min/1.73 ESTIM ATED GFR IS code = 1092) sq m NOT ACCURATE CREATININE CLEARANCE IN PREDICTING GLOMERULAR FILTRATION RATE . ESTIMATED GFR I S NOT APPLICABLE FOR DIALYSIS PATIEN TS. 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 Boo [place] WPOCT-GLUCOSE [id number] 21:41:41 Test Item Value Reference Range Interpretation Comments POC-GLUCOSE METER 325 mg/dL 70-110 H : TESTED A T [facility] 6720 (BEAKER) (test code = [facility], 1538) 94765: Truck Driver Teamster/Techni bradford ID = [id number] for MANJU SALAZAR POCT-GLUCOSE [id number] 17:00:42 Test Item Value Reference Range Interpretation Comments POC-GLUCOSE METER 296 mg/dL 70-110 H : TESTED A T [facility] 6720 (BEAKER) (test code = [facility], 1538) 90514: Truck Driver Teamster/Techni bradford ID = [id number] for Lacho Clarke [id number] 15:50:33 Test Item Value Reference Range Interpretation Comments PARTIAL THROMBOPLASTIN TIME 29.6 seconds 22.5-36.0 (BEAKER) (test code = 760) Blood Culture Panel([employer])2021-08-13 15:13:53 Test Item Value Reference Interpretation Comments Range LISTERIA MONOCYTOGENES Not detected Not detected (test code = 02559-4) STAPHYLOCOCCUS (test Detected Not detected A Coagula se negative code = 20814-9) Staph specie s (CoNS)- methicillin resistantFirst- anjali e therapy: Vancomycin MecA DETECTED Possib le contamination. The likelihood of pathogenicity i s increased if th e organism is observed in multiple blood cultures obtain ed from separate venipunctures. Reference Range : Not Detected STAPHYLOCOCCUS AUREUS Not detected Not detected (test code = 16567-0) Streptococcus (test Not detected Not detected code = 91888-1) STREPTOCOCCUS Not detected Not detected AGALACTIAE (GROUP B) (test code = 90408-1) STREPTOCOCCUS Not detected Not detected PNEUMONIAE (test code = 83792-6) Streptococcus pyogenes Not detected Not detected (Group A) (test code = 48581-2) ACINETOBACTER BAUMANNII Not detected Not detected (test code = 94692-4) HAEMOPHILUS INFLUENZAE Not detected Not detected (test code = 27689-6) NEISSERIA MENINGITIDIS Not detected Not detected (test code = 94789-1) ENTEROBACTERIACEAE Detected Not detected A (test code = 61577-4) ENTEROBACTER CLOACOE Not detected Not detected COMPLEX (test code = 54760-9) KLEBSIELLA OXYTOCA Not detected Not detected (test code = 37057-2) KLEBSIELLA PNEUMONIAE Not detected Not detected (test code = 39214-8) PROTEUS (test code = Not detected Not detected 86801-8) SERRATIA MARCESCENS Not detected Not detected (test code = 07487-9) OCTAVIO ALBICANS (test Not detected Not detected code = 75774-6) OCTAVIO GLABRATA (test Not detected Not detected code = 40893-6) OCTAVIO KRUSEI (test Not detected Not detected code = 91352-5) OCTAVIO PARAPSILOSIS Not detected Not detected (test code = 67462-3) OCTAVIO TROPICALIS Not detected Not detected (test code = 58516-3) ESCHERICHIA COLI (test Detected Not detected A Esche richia code = 11513-9) coliKPC not detected (a carbapenamase gene)First-line therapy: MeropenemDe-esc ala te based on susceptibilitie s.T his test does n ot evaluate for ESBLReference Range: Not Detected METHICILLIN-RESISTANCE Detected Not detected A Note: GENE (test code = Antimicrob ial 69149-8) resistance can occur via multi ple mechanisms. A N ot Detected result for the [employer] antimicrobial resistance gene assays does not indicate antimicrobial susceptibility. Subculturing is required for species identification and susceptibility testing of isolates. VANCOMYCIN-RESISTANCE GENE (test code = 77297-1) CARBAPENEM-RESISTANCE Not detected Not detected Note: GENE (test code = Antimicrob ial 79459-8) resistance can occur via multi ple mechanisms. A N ot Detected result for the [employer] antimicrobial resistance gene assays does not indicate antimicrobial susceptibility. Subculturing is required for species identification and susceptibility testing of isolates.WARNIN G: A Not Detected result for the KPC gene does not indicate susceptibility to carbapenems. Gr am negative bacter ia can be resistan t to carbapenems by mechanisms othe r than carrying t he KPC gene. ENTEROCOCCUS (test code Not detected Not detected = 94967-7) PSEUDOMONAS AERUGINOSA Not detected Not detected (test code = 34660-0) SRAVANTHI (test code = SRAVANTHI) Other bacteria and resistance markers not targeted by this PCR panel cannot be excluded; therefore clinical correlation and follow up of serology, culture results, and other molecular studies is required. The results are not intended to be used as the sole means for clinical diagnosis or patient management decisions. This sample was tested at the [facility] using the [employer] Blood Culture ID Panel. It is FDA cleared and has been verified and approved by the [facility] for clinical use. This laboratory is CLIA-certified and [employer] ([employer])-accredited to perform high complexity testing. Lab Interpretation Abnormal (test code = 78266-4) [facility] [id number] 15:13:53 Test Item Value Reference Interpretation Comments Range LISTERIA MONOCYTOGENES Not detected Not detected (test code = 3172885) STAPHYLOCOCCUS (test Detected Not detected A Coagula se negative code = 20160815) Staph specie s (CoNS)- methici llin resistantFirst- line therapy: Vancom ycin MecA DETECTED Possible contamination. The likelihood of pathogenicity i s increased if th e organism is observed in multiple blood cultures obtain ed from separate venipunctures. Reference Range : Not Detected STAPHYLOCOCCUS AUREUS Not detected Not detected (test code = 9790610) STREPTOCOCCUS (test code Not detected Not detected = 1619648) STREPTOCOCCUS AGALACTIAE Not detected Not detected (GROUP B) (test code = 6951883) STREPTOCOCCUS PNEUMONIAE Not detected Not detected (test code = 3720460) STREPTOCOCCUS PYOGENES Not detected Not detected (GROUP A) (test code = 2310902) ACINETOBACTER BAUMANNII Not detected Not detected (test code = 9189147) HAEMOPHILUS INFLUENZAE Not detected Not detected (test code = 2785348) NEISSERIA MENINGITIDIS Not detected Not detected (test code = 6791104) ENTEROBACTERIACEAE (test Detected Not detected A code = 3735749) ENTEROBACTER CLOACOE Not detected Not detected COMPLEX (test code = 7365756) KLEBSIELLA OXYTOCA (test Not detected Not detected code = 1042165) KLEBSIELLA PNEUMONIAE Not detected Not detected (test code = 1650) PROTEUS (test code = Not detected Not detected 2301279) SERRATIA MARCESCENS Not detected Not detected (test code = 3010976) OCTAVIO ALBICANS (test Not detected Not detected code = 2013576) OCTAVIO GLABRATA (test Not detected Not detected code = 0475151) OCTAVIO KRUSEI (test Not detected Not detected code = 0817687) OCTAVIO PARAPSILOSIS Not detected Not detected (test code = 0603421) OCTAVIO TROPICALIS (test Not detected Not detected code = 8493610) ESCHERICHIA COLI (test Detected Not detected A Esche richia coliKPC code = 5235357) not detected (a carbapenamase gene)First-line therapy: MeropenemDe-esc alat e based on susceptibilitie s.Th is test does no t evaluate for ESBLReference Range: Not Dete cted METHICILLIN-RESISTANCE Detected Not detected A Note: Antimicrobial GENE (test code = resistance can 2021309) occur via multi ple mechanisms. A N ot Detected result for the [employer] antimicrobial resistance gene assays does not indicate antimicrobial susceptibility. Subculturing is required for species identification and susceptibility testing of isolates. VANCOMYCIN-RESISTANCE GENE (test code = 5166707) CARBAPENEM-RESISTANCE Not detected Not detected Note: Antimicrobial GENE (test code = resistance can 4125025) occur via multi ple mechanisms. A N ot Detected result for the [employer] antimicrobial resistance gene assays does not indicate antimicrobial susceptibility. Subculturing is required for species identification and susceptibility testing of isolates.PRINCESS G: A Not Detected re sult for the KPC gen e does not indica te susceptibility to carbapenems. Gr am negative bacter ia can be resistan t to carbapenems by mechanisms othe r than carrying t he KPC gene. ENTEROCOCCUS-BEAKER Not detected Not detected (test code = 9762546) PSEUDOMONAS Not detected Not detected AERUGINOSA-BEAKER (test code = ) Other bacteria and resistance markers not targeted by this PCR panel cannot be excluded; therefore clinical correlation and follow up of serology, culture results, and other molecular studies is required. The results are not intended to be used as the sole means for clinical diagnosis or patient management decisions. This sample was tested at the [facility] using the [employer] Blood Culture ID Panel. It is FDA cleared and has been verified and approved by the [facility] for clinical use. This laboratory is CLIA-certified and College ofAmerican Pathologists (CAP)-accredited to perform high complexity testing.POCT-GLUCOSE [id number] 12:21:28 Test Item Value Reference Range Interpretation Comments POC-GLUCOSE METER 283 mg/dL 70-110 H : TESTED A T [facility] 6720 (BEAKER) (test code = [place], 1538) [address]: Truck Driver Teamster/Techni bradford ID = [id number] for Baltazar Ayala ia (CELLAVISION MANUAL DIFF)2021-08-13 12:13:23 Test Item Value Reference Range Interpretation Comments NEUTROPHILS - REL 75 % (CELLAVISION)(BEAKER) (test code = 2816) LYMPHOCYTES - REL 15 % (CELLAVISION)(BEAKER) (test code = 2817) MONOCYTES - REL 5 % (CELLAVISION)(BEAKER) (test code = 2818) BASOPHILS - REL 1 % (CELLAVISION)(BEAKER) (test code = 2820) BANDS - REL (CELLAVISION)(BEAKER) 4 % 0-10 (test code = 2826) NEUTROPHILS - ABS 1.28 K/ul 1.78-5.38 L (CELLAVISION)(BEAKER) (test code = 2830) LYMPHOCYTES - ABS 0.26 K/ul 1.32-3.57 L (CELLAVISION)(BEAKER) (test code = 2831) MONOCYTES - ABS 0.09 K/uL 0.30-0.82 L (CELLAVISION)(BEAKER) (test code = 2832) BASOPHILS - ABS 0.02 K/uL 0.01-0.08 (CELLAVISION)(BEAKER) (test code = 2835) BANDS - ABS (CELLAVISION)(BEAKER) 0.07 K/uL 0.00-0.80 (test code = 2840) TOTAL COUNTED (BEAKER) (test code 100 = 1351) WBC MORPHOLOGY (BEAKER) (test Normal code = 487) GIANT PLATELETS (BEAKER) (test Present code = 313) POLYCHROMATOPHILLIC RBCS(BEAKER) 1+ few (test code = 478) HYPOCHROMIA (BEAKER) (test code = 1+ few 963) ANISOCYTOSIS (BEAKER) (test code 2+ moderate = 961) MICROCYTES (BEAKER) (test code = 1+ few 965) MACROCYTES (BEAKER) (test code = 2+ moderate 964) POIKILOCYTES (BEAKER) (test code 1+ few = 966) SCHISTOCYTES (BEAKER) (test code 1+ few = 765) OVALOCYTES (BEAKER) (test code = 1+ few 477) ARTIFACT (CELLAVISION)(BEAKER) Present (test code = 3432) PLATELET CONCENTRATION Decreased (CELLAVISION)(BEAKER) (test code = 3438) 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 - Zeus Chavez comments: Slide comments:CBC W/PLT COUNT & AUTO [id number] 12:13:22 Test Item Value Reference Range Interpretation Comments WHITE BLOOD CELL COUNT (BEAKER) 1.7 K/ L 3.5-10.5 L (test code = 775) RED BLOOD CELL COUNT (BEAKER) 4.34 M/ L 4.63-6.08 L (test code = 761) HEMOGLOBIN (BEAKER) (test code = 10.1 GM/DL 13.7-17.5 L 410) HEMATOCRIT (BEAKER) (test code = 34.7 % 40.1-51.0 L 411) MEAN CORPUSCULAR VOLUME (BEAKER) 80.0 fL 79.0-92.2 (test code = 753) MEAN CORPUSCULAR HEMOGLOBIN 23.3 pg 25.7-32.2 L (BEAKER) (test code = 751) MEAN CORPUSCULAR HEMOGLOBIN CONC 29.1 GM/DL 32.3-36.5 L (BEAKER) (test code = 752) RED CELL DISTRIBUTION WIDTH 18.1 % 11.6-14.4 H (BEAKER) (test code = 412) PLATELET COUNT (BEAKER) (test code 60 K/CU MM 150-450 L = 756) MEAN PLATELET VOLUME (BEAKER) 10.6 fL 9.4-12.4 (test code = 754) NUCLEATED RED BLOOD CELLS (BEAKER) 0 /100 WBC 0-0 (test code = 413) POCT-GLUCOSE [id number] 08:09:51 Test Item Value Reference Range Interpretation Comments POC-GLUCOSE METER 298 mg/dL 70-110 H : TESTED A T [facility] 6720 (BEAKER) (test code = [place], 1538) [id number]: Truck Driver Teamster/Techni bradford ID = [id number] for Lacho Clarke BASIC METABOLIC [id number] 07:16:17 Test Item Value Reference Range Interpretation Comments SODIUM (BEAKER) 133 meq/L 136-145 L (test code = 381) POTASSIUM (BEAKER) 3.7 meq/L 3.5-5.1 (test code = 379) CHLORIDE (BEAKER) 101 meq/L 98-107 (test code = 382) CO2 (BEAKER) (test 24 meq/L 22-29 code = 355) BLOOD UREA NITROGEN 10 mg/dL 7-21 (BEAKER) (test code = 354) CREATININE (BEAKER) 0.75 mg/dL 0.57-1.25 (test code = 358) GLUCOSE RANDOM 310 mg/dL 70-105 H (BEAKER) (test code = 652) CALCIUM (BEAKER) 8.7 mg/dL 8.4-10.2 (test code = 697) EGFR (BEAKER) (test 103 mL/min/1.73 ESTIM ATED GFR IS code = 1092) sq m NOT ACCURATE CREATININE CLEARANCE IN PREDICTING GLOMERULAR FILTRATION RATE . ESTIMATED GFR I S NOT APPLICABLE FOR DIALYSIS PATIEN TS. 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 - DBVANCOMYCIN LEVEL, [id number] 06:44:48 Test Item Value Reference Range Interpretation Comments VANCOMYCIN TROUGH (BEAKER) (test 11.4 ug/mL 10.0-20.0 code = 522) 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 - ADMINPOCT-GLUCOSE [id number] 21:07:54 Test Item Value Reference Range Interpretation Comments POC-GLUCOSE METER 258 mg/dL 70-110 H : TESTED A T [facility] 6720 (BEAKER) (test code = [facility], 1538) [address]: Truck Driver Teamster/Techni bradford ID = [id number] for Ri vera (contract), Via nna POCT-GLUCOSE [id number] 18:45:37 Test Item Value Reference Range Interpretation Comments POC-GLUCOSE METER 173 mg/dL 70-110 H : TESTED A T [facility] 6720 (BEAKER) (test code = [facility], 1538) [address]: Truck Driver Teamster/Techni bradford ID = [id number] for Henry Jessican CT, [id number] 14:12:00Referring: Dr. Oneil Unlisted Reason for Exam - Click Yes and Enter Reason Below->NoIs this for enterography?->NoWill this procedure require oral contrast?->No [facility] : 1950 Sex: MFINAL REPORT CT abdomen and pelvis with contrast History: Abdominal infection suspected Comparison: 03/20/2021 Technique: serial axial imaging was performed following up to 100cc of non ionic iodinated intravenous contrast as per departmental protocol. Multiplanar images are reconstructed and reviewed when indicated. This CT examination is performed using one or more of the following dose reduction techniques: Automated exposure control, adjustment of the mA and /or kV according to patient size, and/or use of iterative reconstruction technique. Findings:Unremarkable appearance of the pancreas. Moderate splenomegaly, similar in appearance to previous examination. The liver appears cirrhotic. No hepatic mass or suspicious focus of enhancement is demonstrated. Pneumobilia is seen, consistent with prior sphincterotomy. The central portal veins appear patent. Multiple splenic varices are seen, consistent with portal hypertension. Again seen is cholelithiasis. Nono bstructing thrombus is visualized within the superior mesenteric vein, best seen on axial images 40-43. Unremarkable appearance of the adrenal glands. Bilateral nonobstructing nephrolithiasis, similar in appearance to previous exam. The kidneys, ureters, and bladder are otherwise unremarkable. . Nosmall or large bowel obstruction. Persistent thickening of the hepatic flexure region of the colon is again noted. Surrounding fat stranding is noted, without organized fluid collection. The findings are similar to the previous exam. Moderate sigmoid diverticulosis, without evidence of diverticulitis.No findings to indicate acute appendicitis. No free fluid or lymphadenopathy. No abdominal aorticaneurysm. No aggressive osseous lesion. Impression: 1. Cirrhosis.2. Moderate splenomegaly.3. Interval development of nonobstructing thrombus within the superior mesenteric vein.4. Cholelithiasis.5. Persistent thickening of the hepatic flexure region of the colon, with surrounding fat stranding. The findings are similar in appearance to 04/07/2021 and may be postinflammatory. However, further evaluation with colonoscopy is suggested to exclude an underlying mass.6. Bilateral nonobstructing nephrolithiasis. Signed: Parrish Morrissey Verified Date/Time: 08/12/2021 14:12:52 Reading Location: [address] Body Reading Room POCT-GLUCOSE [id number] 13:54:51 Test Item Value Reference Range Interpretation Comments POC-GLUCOSE METER 308 mg/dL 70-110 H : TESTED A T [facility] 6720 ([employer]) (test code = [facility] [place], 1538) [id number]: Truck Driver Teamster/Techni bradford ID = [id number] for SANGEETA MADRIGAL (CELLAVISION MANUAL DIFF)2021-08-12 09:23:20 Test Item Value Reference Range Interpretation Comments NEUTROPHILS - REL 78 % (CELLAVISION)(BEAKER) (test code = 2816) LYMPHOCYTES - REL 8 % (CELLAVISION)(BEAKER) (test code = 2817) MONOCYTES - REL 7 % (CELLAVISION)(BEAKER) (test code = 2818) EOSINOPHILS - REL 6 % (CELLAVISION)(BEAKER) (test code = 2819) METAMYELOCYTES - REL 1 % 0-0 H (CELLAVISION)(BEAKER) (test code = 2821) NEUTROPHILS - ABS 1.25 K/ul 1.78-5.38 L (CELLAVISION)(BEAKER) (test code = 2830) LYMPHOCYTES - ABS 0.13 K/ul 1.32-3.57 L (CELLAVISION)(BEAKER) (test code = 2831) MONOCYTES - ABS 0.11 K/uL 0.30-0.82 L (CELLAVISION)(BEAKER) (test code = 2832) EOSINOPHILS - ABS 0.10 K/uL 0.04-0.54 (CELLAVISION)(BEAKER) (test code = 2834) METAMYELOCYTES - ABS 0.02 K/uL 0.00-0.00 H (CELLAVISION)(BEAKER) (test code = 2836) TOTAL COUNTED (BEAKER) (test code = 100 1351) WBC MORPHOLOGY (BEAKER) (test code Normal = 487) GIANT PLATELETS (BEAKER) (test code Present = 313) POLYCHROMATOPHILLIC RBCS(BEAKER) 1+ few (test code = 478) HYPOCHROMIA (BEAKER) (test code = 1+ few 963) ANISOCYTOSIS (BEAKER) (test code = 1+ few 961) MICROCYTES (BEAKER) (test code = 1+ few 965) POIKILOCYTES (BEAKER) (test code = 1+ few 966) ELLIPTOCYTES (BEAKER) (test code = 1+ few 962) ARTIFACT (CELLAVISION)(BEAKER) Present (test code = 3432) PLATELET CONCENTRATION Decreased (CELLAVISION)(BEAKER) (test code = 3438) 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 - yonis nortonLoren comments: Slide comments:CBC W/PLT COUNT & AUTO [id number] 09:22:50 Test Item Value Reference Range Interpretation Comments WHITE BLOOD CELL COUNT (BEAKER) 1.6 K/ L 3.5-10.5 L (test code = 775) RED BLOOD CELL COUNT (BEAKER) 4.28 M/ L 4.63-6.08 L (test code = 761) HEMOGLOBIN (BEAKER) (test code = 10.0 GM/DL 13.7-17.5 L 410) HEMATOCRIT (BEAKER) (test code = 33.1 % 40.1-51.0 L 411) MEAN CORPUSCULAR VOLUME (BEAKER) 77.3 fL 79.0-92.2 L (test code = 753) MEAN CORPUSCULAR HEMOGLOBIN 23.4 pg 25.7-32.2 L (BEAKER) (test code = 751) MEAN CORPUSCULAR HEMOGLOBIN CONC 30.2 GM/DL 32.3-36.5 L (BEAKER) (test code = 752) RED CELL DISTRIBUTION WIDTH 17.9 % 11.6-14.4 H (BEAKER) (test code = 412) PLATELET COUNT (BEAKER) (test code 54 K/CU MM 150-450 L = 756) MEAN PLATELET VOLUME (BEAKER) 9.9 fL 9.4-12.4 (test code = 754) NUCLEATED RED BLOOD CELLS (BEAKER) 0 /100 WBC 0-0 (test code = 413) POCT-GLUCOSE [id number] 09:11:19 Test Item Value Reference Range Interpretation Comments POC-GLUCOSE METER 267 mg/dL 70-110 H : TESTED A T [facility] 6720 (BEAKER) (test code = [facility] [place], 1538) [address]: Truck Driver Teamster/Techni bradford ID = [id number] for Darren schultz (contract), Roula greg BASIC METABOLIC [id number] 09:00:29 Test Item Value Reference Range Interpretation Comments SODIUM (BEAKER) 132 meq/L 136-145 L (test code = 381) POTASSIUM (BEAKER) 3.8 meq/L 3.5-5.1 Specimen slightly (test code = 379) hemolyzed CHLORIDE (BEAKER) 99 meq/L 98-107 (test code = 382) CO2 (BEAKER) (test 25 meq/L 22-29 code = 355) BLOOD UREA NITROGEN 12 mg/dL 7-21 (BEAKER) (test code = 354) CREATININE (BEAKER) 0.80 mg/dL 0.57-1.25 Specimen slightly (test code = 358) hemolyzed GLUCOSE RANDOM 294 mg/dL 70-105 [facility] (test code = 652) CALCIUM (BEAKER) 8.4 mg/dL 8.4-10.2 (test code = 697) EGFR ([facility]) (test 96 mL/min/1.73 ESTIMA CHILANGO GFR IS code = 1092) sq m NOT ACCURATE CREATININE CLEARANCE IN PREDICTING GLOMERULAR FILTRATION RATE . ESTIMATED GFR I S NOT APPLICABLE FOR DIALYSIS PATIEN TS. 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 - DBPOCT-GLUCOSE [id number] 22:10:16 Test Item Value Reference Range Interpretation Comments POC-GLUCOSE METER 430 mg/dL 70-110 HH : Notified RN/MD: ([facility]) (test code = TESTED AT [facility] 6720 1538) [facility], [address]: Truck Driver Teamster/Techni bradford ID = [id number] for MANJU SALAZAR POCT-GLUCOSE [id number] 16:04:46 Test Item Value Reference Range Interpretation Comments POC-GLUCOSE METER 308 mg/dL 70-110 H : [facility] ([facility]) (test code = [facility], 1538) [address]: Truck Driver Teamster/Techni bradford ID = [id number] for Lacho Clarke SARS-COV2/RT-PCR ([facility])2021-08-11 15:46:35 Test Item Value Reference Range Interpretation Comments SARS-COV2/RT-PCR Negative Negative The SARS-Co V-2 target (test code = nucleic acids a re not [id number]) detected in thi s specimen. Negative result s do not preclude SARS-C oV-2 infection and s hould not be used as the gloria e basis for patient managem ent decisions. Nega tive results must be combine d with clinical observ ations, patient history , and epidemiological information. A false negativ e result may occur if a spec imen is improperly jerrell ected, transported or handled. This SARS CoV-2 test is a rapid, real-ok e RT-PCR test intended for e qualitative detection of nu cleic acid from SARS-CoV-2 in a nasopharyngeal swab specimen collected from individuals suspected of CO VID-19 by their healthcar e provider. This test has been authorized by FDA under an EUA for use by authorized laboratories. This test is only authorized for the duration of the declaration that circumstances exist justifying the authorization of emergency use of in vitro diagnostic tests for detection and/or diagnosis of COVID-19 under Section 564(b)(1) of the Federal Food, Drug and Cosmetic Act, 21 U.S.C. 360bbb- 3(b)(1), unless the authorization is terminated or revoked sooner. Fact Sheet for Healthcare Providers: https://www.Invision.com/Documents/Xpert%20Xpress%20SARS%20CoV-2/Fact%20Sheets/302-3802%20SARS-COV -2%20HEALTHCARE%20PROVIDERS%20FACT%20SHEET.pdf Fact Sheet for Healthcare Patients: https://www.Adviqo/Documents/Xpert %20Xpress%20SARS%20CoV-2/Fact%20Sheets/3023801%83TWAT-VBK-4%20PATIENT%20FACT%20 SHEET.pdfPOCT-GLUCOSE [id number] 14:19:23 Test Item Value Reference Range Interpretation Comments POC-GLUCOSE METER 357 mg/dL 70-110 H : TESTED A T [facility] 6720 ([facility]) (test code = [place], 1538) [address]: Truck Driver Teamster/Techni bradford ID = [id number] for Imelda Howard COMPREHENSIVE METABOLIC [id number] 11:11:14 Test Item Value Reference Range Interpretation Comments TOTAL PROTEIN 7.6 gm/dL 6.0-8.3 Specimen moder ately (BEAKER) (test code = hemoly zed 770) ALBUMIN (BEAKER) 3.2 g/dL 3.5-5.0 L Specimen mo derately (test code = 1145) hemolyzed ALKALINE PHOSPHATASE 91 U/L 40-150 (BEAKER) (test code = 346) BILIRUBIN TOTAL 1.0 mg/dL 0.2-1.2 Specimen mod erately (BEAKER) (test code = hemoly zed 377) SODIUM (BEAKER) (test 129 meq/L 136-145 L code = 381) POTASSIUM (BEAKER) 4.6 meq/L 3.5-5.1 Specimen moderately (test code = 379) hemolyzed CHLORIDE (BEAKER) 95 meq/L 98-107 L (test code = 382) CO2 (BEAKER) (test 24 meq/L 22-29 code = 355) BLOOD UREA NITROGEN 14 mg/dL 7-21 (BEAKER) (test code = 354) CREATININE (BEAKER) 1.13 mg/dL 0.57-1.25 Specimen moderately (test code = 358) hemolyzed GLUCOSE RANDOM 495 mg/dL 70-105 HH (BEAKER) (test code = 652) CALCIUM (BEAKER) 9.1 mg/dL 8.4-10.2 (test code = 697) AST (SGOT) (BEAKER) 47 U/L 5-34 H Specimen moderately (test code = 353) hemolyzed ALT (SGPT) (BEAKER) 15 U/L 6-55 Specimen moderately (test code = 347) hemolyzed EGFR (BEAKER) (test 64 mL/min/1.73 ESTIMA CHILANGO GFR IS code = 1092) sq m NOT ACCURATE CREATININE CLEARANCE IN PREDICTING GLOMERULAR FILTRATION RATE . ESTIMATED GFR I S NOT APPLICABLE FOR DIALYSIS PATIEN TS. 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 - KELSIE MC-REACTIVE [id number] 11:09:05 Test Item Value Reference Range Interpretation Comments C-REACTIVE PROTEIN (BEAKER) (test 3.14 mg/dL 0.00-0.50 H code = 676) 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 - KELSIE MLACTIC ACID, [id number] 11:02:43 Test Item Value Reference Range Interpretation Comments LACTATE BLOOD VENOUS 1.80 mmol/L 0.50-2.20 Specime n moderately (2) (BEAKER) (test hemolyzed code = 3434) 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 - KELSIE MCBC W/PLT COUNT & AUTO [id number] 11:02:39 Test Item Value Reference Range Interpretation Comments WHITE BLOOD CELL COUNT 2.2 K/ L 3.5-10.5 L (BEAKER) (test code = 775) RED BLOOD CELL COUNT 4.95 M/ L 4.63-6.08 (BEAKER) (test code = 761) HEMOGLOBIN (BEAKER) 11.6 GM/DL 13.7-17.5 L (test code = 410) HEMATOCRIT (BEAKER) 38.2 % 40.1-51.0 L (test code = 411) MEAN CORPUSCULAR VOLUME 77.2 fL 79.0-92.2 L (BEAKER) (test code = 753) MEAN CORPUSCULAR 23.4 pg 25.7-32.2 L HEMOGLOBIN (BEAKER) (test code = 751) MEAN CORPUSCULAR 30.4 GM/DL 32.3-36.5 L HEMOGLOBIN CONC (BEAKER) (test code = 752) RED CELL DISTRIBUTION 17.8 % 11.6-14.4 H WIDTH (BEAKER) (test code = 412) PLATELET COUNT (BEAKER) 60 K/CU MM 150-450 L (test code = 756) MEAN PLATELET VOLUME Unable to report due (BEAKER) (test code = to abn ormal Platelet 754) population distribution. NUCLEATED RED BLOOD 0 /100 WBC 0-0 CELLS (BEAKER) (test code = 413) NEUTROPHILS RELATIVE 65 % PERCENT (BEAKER) (test code = 429) LYMPHOCYTES RELATIVE 18 % PERCENT (BEAKER) (test code = 430) MONOCYTES RELATIVE 11 % PERCENT (BEAKER) (test code = 431) EOSINOPHILS RELATIVE 4 % PERCENT (BEAKER) (test code = 432) BASOPHILS RELATIVE 1 % PERCENT (BEAKER) (test code = 437) NEUTROPHILS ABSOLUTE 1.43 K/ L 1.78-5.38 L COUNT (BEAKER) (test code = 670) LYMPHOCYTES ABSOLUTE 0.39 K/ L 1.32-3.57 L COUNT (BEAKER) (test code = 414) MONOCYTES ABSOLUTE 0.25 K/ L 0.30-0.82 L COUNT (BEAKER) (test code = 415) EOSINOPHILS ABSOLUTE 0.09 K/ L 0.04-0.54 COUNT (BEAKER) (test code = 416) BASOPHILS ABSOLUTE 0.02 K/ L 0.01-0.08 COUNT (BEAKER) (test code = 417) IMMATURE 1 % 0-1 GRANULOCYTES-RELATIVE PERCENT (BEAKER) (test code = 2801) Blood gas, [id number] 10:58:59 Test Item Value Reference Range Interpretation Comments pH, Martínez (test code = 7.43 7.32-7.42 H 2746-6) pCO2, Martínez (test code = 45 See_Comment [Aut omated message] 755) The system [employer] h generated this result transmit chilango reference range : 41 - 51 mm Hg. The reference range was not used to interpret this result as normal/abnormal . pO2, Martínez (test code = 50 See_Comment H [Auto mated message] 2705-2) The system [employer] h generated this result transmit chilango reference range : 25 - 40 mm Hg. The reference range was not used to interpret this result as normal/abnormal . O2 Sat, Martínez (test code 86.1 % 40.0-70.0 H = 2711-0) HCO3, Martínez (test code = 29 mmol/L 21-29 31765-9) Base Excess, Martínez (test 4.2 mmol/L -2.0-3.0 H code = 1927-3) Patient Temperature 37.0 (test code = 8310-5) FIO2 (test code = 1819) 21 Lab Interpretation Abnormal (test code = 10678-7) [facility] [id number] 10:58:59 Test Item Value Reference Range Interpretation Comments PH VENOUS (BEAKER) (test code = 7.43 7.32-7.42 H 701) PCO2 VENOUS (BEAKER) (test code = 45 mm Hg 41-51 755) PO2 VENOUS (BEAKER) (test code = 50 mm Hg 25-40 H 702) O2 SATURATION VENOUS (BEAKER) 86.1 % 40.0-70.0 H (test code = 703) HCO3 VENOUS (BEAKER) (test code = 29 mmol/L 21-29 705) BASE EXCESS VENOUS (BEAKER) (test 4.2 mmol/L -2.0-3.0 H code = 704) PATIENT TEMPERATURE (BEAKER) (test 37.0 code = 1818) FIO2 (BEAKER) (test code = 1819) 21.0 Ketones, [id number] 10:54:45 Test Item Value Reference Range Interpretation Comments Ketones, Blood (test code = 1103) 0.1 mmol/L <0.4 Lab Interpretation (test code = Normal 36181-3) [facility], [id number] 10:54:45 Test Item Value Reference Range Interpretation Comments KETONES, BLOOD (BEAKER) (test code 0.1 mmol/L <0.4 = 1103) MR, ABDOMEN, [id number] 15:27:00Referring: Dr. Oneil Include Abdominal VesselsUnlisted Reason for Exam - Click Yes and Enter Reason Below- >YesUnlisted Reason for Exam->screening for cancer, cirrhosis, awaiting organ transplantM[facility] : 1950 Sex: MFINAL REPORT TECHNIQUE: MRI of the abdomen WITHOUT and WITH intrave nous contrast. INDICATION: Unlisted Reason for Examscreening for cancer, cirrhosis, awaiting organ transplant. COMPARISON: MRI from 01/04/2021. CT from 04/07/2021 FINDINGS: The most inferior portion of the left hepatic lobe is suboptimally evaluated due to the adjacent susceptibility artifact. LOWER THO RAX: Unremarkable. LIVER: Nodular, cirrhotic liver. The hyperintense T2 weighted signal adjacent thegallbladder fossa is most likely reactive inflammation. There are several, scattered wedge-shaped areas of arterial phase hyperenhancement the periphery the liver which are most likely perfusional.BILIARY: Prior subtotal cholecystectomy with at least two residual stones in the gallbladder which measure up to 1.2 cm. No biliary ductal dilatation or filling defect.SPLEEN: 18.9 cm splenomegaly.PANCREAS:No focal masses or ductal dilatation. ADRENALS: No adrenal nodules.KIDNEYS/URETERS: No hydronephrosis or solid mass lesions. PERITONEUM/RETROPERITONEUM: There are inflammatory changes in the right upper quadrant near the gallbladder fossa which extend down the right anterior abdomen towards the site of the prior surgical drain. There is some interspersed inflammation in the right abdominal wall. Fat necrosis in the right upper quadrant is unchanged. Trace perihepatic ascites along the left hepatic lobe. LYMPH NODES: No lymphadenopathy.VESSELS: Conventional hepatic arterial anatomy. The main portal vein is patent and measures 1.4 cm. A portion of the main portal vein is suboptimally evaluated due to the susceptibility artifact in the gastric antrum. Splenorenal shunt. Moderate to large esophageal varices. A partially occlusive superior mesenteric venous thrombus is unchanged from 04/07/2021 in retrospect (previously this had the appearance of flow artifact). GI TRACT: No distention or wall thickening. There is susceptibility artifact near the gastric antrum/pylorus which is most likely from a biopsy clip. Diverticulosis of the partially visualized colon. BONES AND SOFT TISSUES: Unremarkable. IMPRESSION: The susceptibility artifact in the stomach makes evaluation of the inferior portion of theleft hepatic lobe and a portion of the main portal vein suboptimal. 1.No suspicious liver lesion 2.The inflammatory changes in the right upper quadrant which extend through the right abdominal wall aresimilar to the CT from 04/07/2021. There is no drainable fluid collection. 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 5.The susceptibility artifact at the gastric antrum/pylorus is most likely from a biopsy clip. The findings were rel[facility] to Dr. Alexis via [facility] on 07/29/2021 at 3:26 PM. Signed: Rosalio Guerrero [facility] Verified Date/Time: 07/29/2021 15:27:09 ALPHA FETOPROTEIN (AFP), TUMOR [id number] 14:21:30 Test Item Value Reference Range Interpretation Comments ALPHA-FETOPROTEIN (BEAKER) (test 3.2 ng/mL <10.0 code = 1094) 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 - KELSIE MCOMPREHENSIVE METABOLIC [id number] 14:04:07 Test Item Value Reference Range Interpretation Comments TOTAL PROTEIN 7.8 gm/dL 6.0-8.3 (BEAKER) (test code = 770) ALBUMIN (BEAKER) 3.5 g/dL 3.5-5.0 (test code = 1145) ALKALINE PHOSPHATASE 97 U/L 40-150 (BEAKER) (test code = 346) BILIRUBIN TOTAL 1.6 mg/dL 0.2-1.2 H (BEAKER) (test code = 377) SODIUM (BEAKER) (test 134 meq/L 136-145 L code = 381) POTASSIUM (BEAKER) 4.0 meq/L 3.5-5.1 (test code = 379) CHLORIDE (BEAKER) 99 meq/L 98-107 (test code = 382) CO2 (BEAKER) (test 27 meq/L 22-29 code = 355) BLOOD UREA NITROGEN 14 mg/dL 7-21 (BEAKER) (test code = 354) CREATININE (BEAKER) 0.81 mg/dL 0.57-1.25 (test code = 358) GLUCOSE RANDOM 293 mg/dL 70-105 H (BEAKER) (test code = 652) CALCIUM (BEAKER) 10.1 mg/dL 8.4-10.2 (test code = 697) AST (SGOT) (BEAKER) 25 U/L 5-34 (test code = 353) ALT (SGPT) (BEAKER) 15 U/L 6-55 (test code = 347) EGFR (BEAKER) (test 94 mL/min/1.73 ESTIMA CHILANGO GFR IS code = 1092) sq m NOT ACCURATE CREATININE CLEARANCE IN PREDICTING GLOMERULAR FILTRATION RATE . ESTIMATED GFR I S NOT APPLICABLE FOR DIALYSIS PATIEN TS. 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 - KELSIE MBILIRUBIN, [id number] 14:04:07 Test Item Value Reference Range Interpretation Comments BILIRUBIN DIRECT (BEAKER) (test 0.8 mg/dL 0.1-0.5 H code = 706) 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 - KELSIE MPROTHROMBIN TIME/[id number] 13:46:23 Test Item Value Reference Range Interpretation Comments PROTIME (BEAKER) 14.7 seconds 11.9-14.2 H (test code = 759) INR (BEAKER) (test 1.17 See_Comment [Automat ed message] code = 370) The system [employer]ocadostore generated this result transmitted ref erence range: <=5.90. The reference range was not used to int erpret this result as normal/abnormal . RECOMMENDED COUMADIN/WARFARIN INR THERAPY RANGESSTANDARD DOSE: 2.0 - 3.0 Includes: PROPHYLAXIS forvenous thrombosis, systemic embolization; TREATMENT for venous thrombosis and/or pulmonary embolus.HIGH RISK: Target INR is 2.5-3.5 for patients with mechanical heart valves.CBC W/PLT COUNT & AUTO DIFFERENTIAL 2021-07-26 13:39:58 Test Item Value Reference Range Interpretation Comments WHITE BLOOD CELL COUNT (BEAKER) 2.6 K/ L 3.5-10.5 L (test code = 775) RED BLOOD CELL COUNT (BEAKER) 5.48 M/ L 4.63-6.08 (test code = 761) HEMOGLOBIN (BEAKER) (test code = 12.7 GM/DL 13.7-17.5 L 410) HEMATOCRIT (BEAKER) (test code = 42.7 % 40.1-51.0 411) MEAN CORPUSCULAR VOLUME (BEAKER) 77.9 fL 79.0-92.2 L (test code = 753) MEAN CORPUSCULAR HEMOGLOBIN 23.2 pg 25.7-32.2 L (BEAKER) (test code = 751) MEAN CORPUSCULAR HEMOGLOBIN CONC 29.7 GM/DL 32.3-36.5 L (BEAKER) (test code = 752) RED CELL DISTRIBUTION WIDTH 19.0 % 11.6-14.4 H (BEAKER) (test code = 412) PLATELET COUNT (BEAKER) (test code 97 K/CU MM 150-450 L = 756) MEAN PLATELET VOLUME (BEAKER) 10.4 fL 9.4-12.4 (test code = 754) NUCLEATED RED BLOOD CELLS (BEAKER) 0 /100 WBC 0-0 (test code = 413) NEUTROPHILS RELATIVE PERCENT 60 % (BEAKER) (test code = 429) LYMPHOCYTES RELATIVE PERCENT 23 % (BEAKER) (test code = 430) MONOCYTES RELATIVE PERCENT 9 % (BEAKER) (test code = 431) EOSINOPHILS RELATIVE PERCENT 7 % (BEAKER) (test code = 432) BASOPHILS RELATIVE PERCENT 1 % (BEAKER) (test code = 437) NEUTROPHILS ABSOLUTE COUNT 1.54 K/ L 1.78-5.38 L (BEAKER) (test code = 670) LYMPHOCYTES ABSOLUTE COUNT 0.58 K/ L 1.32-3.57 L (BEAKER) (test code = 414) MONOCYTES ABSOLUTE COUNT (BEAKER) 0.22 K/ L 0.30-0.82 L (test code = 415) EOSINOPHILS ABSOLUTE COUNT 0.17 K/ L 0.04-0.54 (BEAKER) (test code = 416) BASOPHILS ABSOLUTE COUNT (BEAKER) 0.03 K/ L 0.01-0.08 (test code = 417) IMMATURE GRANULOCYTES-RELATIVE 0 % 0-1 PERCENT (BEAKER) (test code = 2801) Tissue [id number] 09:43:51 Test Item Value Reference Range Interpretation Comments Case Report (test code Surgical Pathology = 104) Report Case: [id number] Authorizing Provider: Seth Denise MD Collected: 07/19/2021 09:52 AM Ordering Location: [facility] Endoscopy Received: 07/19/2021 01:39 PM Services Pathologist: Emily Cespedes MD Specimens: A) - Duodenum, nodule bx r/o adenoma B) - Stomach, Antrum, r/o H. pylori DIAGNOSIS (test code = [id number] 3220) FuZzEwMzNcZnRuYmpcdWMx IHtccnRmMVxlcGljOTYwMV qptuMgANYoiJWaM6Bfrlhy GCleWX8cUH8xiXfkmAJijA IvUGLvGrRjh3irt903fPOe k9pfLYOThwvzlLo9oSnpV1 8zv1Q7UvhmT8qvNNHwCIcb rdEdsjR8GEVjzCKjGVnsng ObLBfknwFfvdLcEhh1RKY6 lFniEDUmajxkIbT4QApeUP EconorAMp5JUcaBNBrnPH4 HOHmzKNwF6ApCGWuEU3neo n4INM9QVwzANXeHjW0SBSt qAHtNKEyyNupVKtgi477OR U6AfRnXTZxsqOvlQpdtH1c KpHrKQenZkKeZE2aSWVIKQ TBJW3sBSSSQ4XGPEotuAUm APCjETAjHTXIC9WJPrPDOR 7DT51KXFBGIXGEWXCIXaWK OIDFMC2UUIDRDRAYUEFmUB 9TYYWNXj9LQGCuOZ5AKCNJ FSZPEE7HUOBSZ01SLSHUUX 5SBGqrFUBkRZMyLSRtC1gS SCBQRVBUSUMgRFVPREVOSV DSRl4fRMEkIKukRUVjQBWq ZT6gDaODGRSMTqRuAy8EYV SFS2YYKBTCCR8ieAZnEZZf fnhhAiZyVd5gV1RDQIMZGI yfRV8URoNAQCXTUH5YZ2x8 XHBhciAgICAgLSBHQVNUUk rAGJLWOPJCPBAVFJSUT9Jf F5dQAKPTCHdPBSBGDv9MHM EaTZ1EH7CCLaDbU6SCVDDN VElTIEFORCBccGFyICAgIC QxMNADS7DLBSVOSTtYAGTU JaitVSChHPLrNT5eAnEXUC HTJkAoPx9CPFjYYNtXH4LA C0RSSlCMDDwZSbyjY8WEFX 1ZG96WNnylJEPtGYMzPR6n BhFHSGYIDiDzMg4XTNcTVC VTVElOQUwgTUVUQVBMQVNJ KIssHBhVFEuDX5nSVQ2GUC 0OESkKNtVRX8gsWYZcjj36 PBO0OmYlq0Z4JPG5TMAcPG Ysh1wwIQYdaZRmLeUgPjJy ZnRuYmpcdWMxXGRlZmYwe1 asr592qDQoo1ayQXTnCtO4 rXVpBUSarKIqZ073MAVlKK kjj9hrb6NkAOOurKFvr5O2 VPQOqdfqtZt4nPtpM36nh9 W3XtalB2jtEBCwQBQtC3Cb LB2xVNOvWzt4BWS6LGW7SX HkSQQsZ4LlHO7tCFTehGFi XXs0i2ludJneRJOcLXJ2l1 omZQwsjaVuVX6rgm5gcHr2 j2jxmiIqHNUzMWGohHMZCO JrH1CoxFhzAt1loFc9aMos EmbpOBN0Koh6XP1kqa48gq y8wMjxCCGvwwybIzC4JHbj SICttxmnOLs5FHegYQTuuT D4OJKlzIEvL2XyMALsSB9z yxm4BTP8ANqbXWTlJtS7OQ CknZUyNXIwxJjxESqel292 SQN2TdScVF4qE0Apv9O6wB 9maXRcZGVmdGFiNzIwXGZv ru1vfUPsBPjdp0TyCNY7vo B6wCXftAQbDIAcDcX2TLgx QN2wlo96ZBWdFRR4uo3ycD HuvBgkgpAyvYGyELwrS9Dp BADed434BAJiO5XhIYYyt9 M0kqIwNdQgNRXzbYE4zhH9 IZDxQM9rwmveb1mkXTzsHS icANXfhfA2tdW2WIGamIAp X1FprV9yLIImMT0eubgur1 guFZY2NIdqFVJiNUK5OzCr KBXmo9Fxmxa9YpUob2IhuE RhTHwpX07ve779JCPcpyHl C6eskXZddoojeRGhrijdRZ vgkqS3MLTrCMiyplelNDUr AAbxD4hbIjCnKPEfzMzsQL zka4OxZZTmJRCpSfFyxUDo XCEjClv0NSHzlNSlHKGwOe LgD9sfissvFtLXHMAth7dj A8shuBSTaGHcK4JbUFvqjk ZxVDzyCWtwABTyHLZ6HW7f KiV2SIPcle69 CPT Code(s) (test code r3kmyEKjQNJssNH3MyEwYZ = 2841) Ozk6jzy7VrkRBsaWQnBQyb gKEeucJzee89uWJ7dQ94VX 6pWRYqDhU9HJQfxcH7Kvi5 QWPgVQItgPOkS394t9zqr4 ieqlSbaLP4qNqoKDFmhhhc LsW6QArpJQVearevZKm5FN vzKFYnkGL5MRHfqLBbT3Zd FNKvYQ9iwxi1MEX3LUhjJP PdPuV6PCGldXEoMKOkgZml DUuvu569LTK0JiEsMNDbou GflUlhvS1iXcFmAFH6ARRm NRDIMCZpAYj8OgGjXFctQu wgODgzNDJccGFyfQ== CLINICAL HISTORY (test s5busZGnVGRktRX4TpLjHS code = 3766) Wxr4mdq9KnkUQamKCbZKmf mEImkwImaq28qCH3kS53NQ 0oAUQsUsE6SINqfwH0Pnz9 GUNrSRWwrVOiV035n6qeg9 whmuAyzFZ0RRLrDZRfN4Rw IL6bHKJlmWYeP45npMJpUM J2WMKqOZNalCPmWLMgRSI4 DCKguKAmE7vkKNMnYC1ovq upDCzuMJwcXNGdmGL9AXZz uIFaG5KvAGPhWLzpZWYmaa v0UbElEg9vgFIxtDigHXsl YXJkXGxpMVxyaTFcbGluMV xwbGFpblxmczIwXGNmMSBF o08ucQFqMWDdDRMchmtvMU Lzn6v6qF67tNJckUPlOGkr Z1hkRYZ3 SPECIMEN SOURCE (test s7shxBRgXPVeiWZ5LvJqDJ code = 3377) Fmu3qyb9EdoVQtgTWmDDqz eFNezvUmxa60zGC4rW31UO 2mQTTpCaE9KKOitbN4Yjy1 EPWiMKFuoGDgV921o1qke3 dyfoNlqZS5vWolBKTxherg LtX6XImrNMBofmgrCVe9FW yxUWPxiKW8QIAcePDgQ3Sn UQAyND6olht1BWZ5QZplLL OnNmQ2ORKmmGJtZJIotRhv BNjqi743OAS6ZxLxYOWpax HvdGrhmR6gVbCrKJBYUsJz ZPAuVXQabV5hyAvnJSSWPj VvY0OhkXNdkFbaEA05idAu XHBhcn0= GROSS DESCRIPTION (test k4wydDUxFDVleRUwNvToIJ code = 3366) IqUIEyr9mgCEMueJRjJdVb MzNcZnRuYmpcdWMxXGRlZm Aks1hpf573tYGaz1myCKBb IrU9gIEbZWZxaGCrN739u6 edm2cojrBebLO9JETcTXC0 ZLrpkyHsucH7OExcfKAkHt M0SLvspkSdBCjxksMrawAi Zew8NGIaS061TNL1eGksh5 tvXHX1FTKrWLTlHcTeZk4c hMClB366ZKKwDVWZKIOzbK z9LFIvlvSbhaZpxYOLh964 B895t8beCZAseuLfdQeDmz gcn7mjL963GVVgvADlsfRb UtMzOSTdkSMewNM2EBVhHX 4eyyvvGnHmQT2bubgpMzAg IT8fmmv2IiWwLS4ahwkgVx ZiGFdpHLHdqtzbIZZth3Uu mzakWP9vM4Ikh0D3hE6fdV YqYAXaiDWpKjJnIVBtdh9p uGBvAShtd9ToTNF0boL6aP KogDXoZBVmBY67Xtfzb6Qq DybiUQV4JDXmkxEri4Kge3 xzUnWfsqNqY2wtX8OfAAMt VWAzAMYfSdHupgXjl9Tmm3 RsfYMbiRz1s0ujYLZnPZGb mMvps2dhIZN2QXVuV9O3gX Rrn9taFEuzHIHkuMG1ptsk ZIgzSQHqlhQ2wxizRFwcXB RadDS8sxbeASclPGCxBoO3 qdooGGlnLLFxQBP6HObdw6 21ZWI0XJwhEcdmKFhnUQFy bmNvbnRccGduZGVjXHBsYW luXHBsYWluXGYwXGZzMjRc bVzpaCahrM2wAbQgVxBvTN noME0wPXUmY6vwcHIyTNHf YCAqV3maCfJjwD8cuEexWR xmczIwIEEuICBSZWNlaXZl UHIzbjUtn3KhREqxvlKlJP JndAGdDVZlDIAbPAUvIV14 Z0VpkoNtLMkzKUMlQVWutD 7nRY10cXHpxiIzskLqIvX5 g5QlgiRkQqTuxsCxIKWaDh M6HHYaZdI4VWZgJLVckCX2 NJ6at88snKB6xBCjfDEiSu LzT71iyrCak8tzR8ujiHBn HoehyVMlTWOfYS7uOSY7Wi 1ygUYcRRPfmvL0l1VfAOuu IEExLlxwYXJccGFyIEIuIC MSVWQscXMdYUTaodPpa3Xw YWxpbiBsYWJlbGVkIHRoZS EbTDMxSH30D1LdolDjLYro CBGuTFZkoO7qLC93zQFvkd OhtrZfWmP2f76aC9uwFQJn zOM7iPJmXFHxLXZluMMsGW ZoKmWkzWgmi3AhCOZwPMlv QQ07jxHaPPMgqUTwhanlkP DwqK5bZE2cGPRhTPksWUib RVM9LFU6NMSbsTAbe1jovl C3yIdnbMJvpzGpVwjoeFWw SBRkEF5pVWF4Gz1woADtNN VbqfT3i0AfYVfbCJVvKsve YXJccGFyIFBpbGFyIEFyZ3 VlbGxlcywgUEEsIEhUIChB Y9SQWUexEZX8 MICROSCOPIC DESCRIPTION z6ipqEJoBDMzdRC9AjTmJK (test code = 3371) Mat7uxu1RfkNEvbVYfWJkb xUUbgxXdte67aSX3wX81JH 0cCJSvJvS0QSJmxrR5Oyi1 ALNzQJGfpLFyR993d4cre8 rpeeZzbQX3vNjaFXBogtgh WjH8DAcvPTOyfgplQFs9SC uwUUBzbCC1SJBgxYLeM8Fy DHPlYL9hnsc7OFT8TJfmXL DiNlS2DHGzpEArZOHvbHhd YGjja710GON2ToLdWTOicj VktWsytM9oRyJaSJQJADXn m3IvFEUqGMQphx0= SPECIAL STUDIES (test c6ytqAJsVXQvcTX9EdVyBJ code = 3376) Iym9dpt3PilYLneTCjNNhz zNBtddNhmn55kWP1kC46GV 4qFKFlOqY8WTNmsfB7Vyu4 NEReVISamSVpJ802GGQwJX QkkBeonll7qD28VLXqnP0o dGJsIDtccmVkMFxncmVlbj TxOgc9JQD2nOsmBFCydlli HpN2IVvyVTGuwzblWMa6JQ zrZVGhqNA1BGEfeAPlA6In ARXwOJ3nhjm4AFC2MSezBX LoQyT4WOSjyKQjYAIouJzy HLhls464KWP5UnJgDPMrmv EwnGerpL4kPhAsDvRxBvvz ZjEgVGhlIGludGVycHJldG U4vG2sRX3uDOExxIOyX4Bc DOEymxPeuAGgXVX6zJJfiO YpPQ8xSYeipMYte9lio2Yn I5cxdYghaOC1ZX5eTHAwTN QcKAahp0OolM0hUovkPQJr LASwXLPFTd3QcATmZC3dFf f4JYsvkOfyhFclM7u6nwPs c2Ysl5ntsdSzNPEdoGzxa5 lhLlxwYXIgQjEuIFdhcnRo jP7lUP4rTRwavNpnc4UcFZ ogbmVnYXRpdmUgXHBhciBD v228lp7uCJXvjAMtvaDCgP WucL4hPCieBRsnGMmzzMUk URwpi0gyBRYvw4w9gCCuSU PhdkPhq8veNEefdhEvHBGk kSQvtDYrFIYzu51uQMbroS beaMspKNVfn7FswBbkc5Bh EoTlVEzjs1XeI07qtKLtkD EfqZtaQTBspwBkFZLux38a w3qkHLXsZcL2iDFbwCX8jD UquXQua1QegOsvRZDqs2vd JNPtjl7psyctvEVhz8AudD 5pbmcuIEludGVybmFsIHBv z7g2jBPlEFOvIMKnPDiqdV b5IQBhj348qy1fkdR0jYQv LTL4MFyqMQMkVUCfkmHiGJ ZhbHVhdGVkXHBhciAgXHBh beSEfH96la5ltAT3k8TiLV 4ae1LirPV3NBSctzodLYtk iREdsKceOiV2SLHbsGHpXy 2vuYZrSDE8LUZzcImpajWC dB0hQXCgEFw6TVGlPhSvQb davnIZPOFvV9EmZLVknuDe zpzcPQE1iS5qo0j3FDodKw 2bQBYjdjrnb9vgbkSgeIPm e3GlYQVhsmYrh3WrBNBllr JsrWGgKHBptlUczp8ehvId RQAaCILeB2YuckdyfYiows P5CNMtMHJaqTCtyGnfKMAl ILv7AZfrmlZur0LyKhTtzs NrwDSnhzVeFI9nKGBqfESj ymPfACX1SEHoRVEFKyTzHE Xdu8OoGJ2aSNDgbXaoTPNs yI6pt7AuBKZrq93eBOOySS BGREEgaGFzIGRldGVybWlu ZWQgdGhhdCBzdWNoIGNsZW ZmZR6wNWUavxSnlLJfo3Th tSPtahMsm0AwjkAiSQIzQV Q7GsQBnNXzwMGtoYBtfmS2 s8WcFNFxbtTveYszrPDelJ PlsQXkw7Pobn1mWVWis9na tWqyQE2nlCFnBFAuOIffil YzTRWanrEiyeGgg6VaX4F6 aC9kSPher4QeHw2jXXRkc4 DznxOwJsBAfZrpEOfjPg6o FKWacncjxCQnF9LsnZqqpP VkIHVuZGVyIHRoZSBDbGlu qUUprYKOFUBpmlO2t7O5FO fsvUDvgfRlTV51GROxWS6s uPRyuNGiq3GcOQk7WFFnM2 zXAN13QWvtNZIcfVQizUrv yNIpFDYaXAShmzKkvq3upE pdqPNqu28euUM8pZI7NXOl vL9eU2VtFSpxRk3jAVCtzu huiENdaJwqRw4wdEXvfY== Gross assessment was [facility] performed at ([facility], = 2777) Department of Pathology, [address] [place] [address], Technical component was [facility] performed at ([facility], = 2778) Department of Pathology, [address] [place] [address], Professional component [facility] was performed at (Psychiatric, code = 2779) Department of Pathology, [address] [place] [address], [facility] [id number] 09:43:51Surgical Pathology Report Case: [id number] Authorizing Provider: Seth Denise MD Collected: 07/19/2021 09:52 AM Ordering Location: [facility] Endoscopy Received: 07/19/2021 01:39 PM Services Pathologist: Emily Cespedes MD Specimens: A) - Duodenum, nodule bx r/o adenoma B) -Stomach, Antrum, r/o H. pylori A. DUODENUM, BIOPSY: - DUODENAL MUCOSA WITH FOVEOLAR METAPLASIA AND CHRONIC INFLAMMATION, CONSISTENT WITH PEPTICDUODENITIS. - NEGATIVE FOR DYSPLASIA.B. STOMACH, ANTRUM, BIOPSY: - GASTRIC ANTRAL MUCOSA WITH MILD CHRONIC INACTIVE GASTRITIS AND FOCAL ACTIVITY. - NEGATIVE FOR HELICOBACTER PYLORI ORGANISMS. - NEGATIVE FOR INTESTINAL METAPLASIA, DYSPLASIA OR MALIGNANCY. Signing [employer] Phone Line: [phone] signed by Emily Cespedes MD on 07/22/2021 at 9:43 [id number] X 2, 91801 x 2, 85746Noljtapvhz varices without bleedingA. DuodenumB. Stomach, antrumA. Receivedin formalin labeled the patient's name, accession number and "duodenum" is a 0.3 x 0.2 x 0.1 cm kwon soft tissue fragment which is filtered and submitted in toto in A1.B. Received in formalin labeled the patient's name, accession number and "stomach, antrum" are 2 kwon soft tissue fragments measuring up to 0.3 cm in greatest dimension which are filtered and submitted in toto in B1.BRANDAN Cherry,HT (ASCP)Performed.The interpretation of this case included the use of immunohistochemistry or special stains.A1. PAS/Alcian blue: highlights foveolar metaplasia.B1. Warthin and H- pylori : negative Control Slides Examined: In-house known positive controls were evaluated along with the test tissue. These control slides run alongside of the patients sample show appropriate staining. Internal positiveand negative controls when available are evaluated Immunohistochemistry technical testing was performed at [facility], Pathology Laboratory where it was developed and its performance characteristics were determined. It has not been cleared or approved by the U.S. Food and Drug Administration. The FDA has determined that such clearance or approval is not necessary. The test is used for clinical purposes. It should not be regarded as investigational or for research. This laboratory is certified under the Clinical Laboratory Improvement Amendments of 1988 (CLIA-88) as qualified to perform high complexity clinical laboratory testing.[facility], Department ofPathology, [address] [place] [address], [facility], [address] [place] [address], [facility], Department of Pathology, [address] [place] [address], NTUB-GLUCOSE [id number] 10:32:36 Test Item Value Reference Range Interpretation Comments POC-GLUCOSE METER 224 mg/dL 70-110 H : TESTED Ashwini Vazquez [facility] 6720 (BEAKER) (test code = HANNAH Jones [facility], 1538) [address]: Truck Driver Teamster/Techni bradford ID = [id number] for Karely Green BASIC METABOLIC [id number] 08:50:38 Test Item Value Reference Range Interpretation Comments SODIUM (BEAKER) 135 meq/L 136-145 L (test code = 381) POTASSIUM (BEAKER) 4.3 meq/L 3.5-5.1 (test code = 379) CHLORIDE (BEAKER) 102 meq/L 98-107 (test code = 382) CO2 (BEAKER) (test 27 meq/L 22-29 code = 355) BLOOD UREA NITROGEN 11 mg/dL 7-21 (BEAKER) (test code = 354) CREATININE (BEAKER) 0.83 mg/dL 0.57-1.25 (test code = 358) GLUCOSE RANDOM 267 mg/dL 70-105 H (BEAKER) (test code = 652) CALCIUM (BEAKER) 9.0 mg/dL 8.4-10.2 (test code = 697) EGFR (BEAKER) (test 92 mL/min/1.73 ESTIMA CHILANGO GFR IS code = 1092) sq m NOT ACCURATE CREATININE CLEARANCE IN PREDICTING GLOMERULAR FILTRATION RATE . ESTIMATED GFR I S NOT APPLICABLE FOR DIALYSIS PATIEN TS. 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 - PIAYA LPOCT-GLUCOSE [id number] 08:34:08 Test Item Value Reference Range Interpretation Comments POC-GLUCOSE METER 222 mg/dL 70-110 H : Notified RN/MD: TESTED (BEAKER) (test code AT [facility] [address] = 1538) [place], [address]: Truck Driver Teamster/Techni bradford ID = [id number] for ANNMARIE SHAH Gamma Glutamyl Transferase (GGT)2021-06-23 14:15:36 Test Item Value Reference Range Interpretation Comments GGT (test code = 23 U/L 9-64 Specimen 2324-2) slightly hemolyzed SRAVANTHI (test code = SRAVANTHI) 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 - KJ L Lab Interpretation Normal (test code = 34711-8) [facility] [id number] 14:15:36 Test Item Value Reference Range Interpretation Comments TOTAL PROTEIN (BEAKER) 7.7 gm/dL 6.0-8.3 Speci men slightly (test code = 770) hemolyzed ALBUMIN (BEAKER) (test 3.2 g/dL 3.5-5.0 L Speci men slightly code = 1145) hemolyzed BILIRUBIN TOTAL 1.0 mg/dL 0.2-1.2 Specimen sli ghtly (BEAKER) (test code = hemoly zed 377) BILIRUBIN DIRECT 0.4 mg/dL 0.1-0.5 Specimen sl ightly (BEAKER) (test code = hemoly zed 706) ALKALINE PHOSPHATASE 93 U/L 40-150 (BEAKER) (test code = 346) AST (SGOT) (BEAKER) 35 U/L 5-34 H Specimen slightly (test code = 353) hemolyzed ALT (SGPT) (BEAKER) 13 U/L 6-55 Specimen slightly (test code = 347) hemolyzed 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 - KJ LGAMMA GLUTAMYL TRANSFERASE (GGT)2021-06-23 14:15:36 Test Item Value Reference Range Interpretation Comments GAMMA GLUTAMYL 23 U/L 9-64 Specimen slig htly TRANSFERASE (BEAKER) hemolyz ed (test code = 364) 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 - KJ LBASIC METABOLIC [id number] 14:15:31 Test Item Value Reference Range Interpretation Comments SODIUM (BEAKER) 129 meq/L 136-145 L (test code = 381) POTASSIUM (BEAKER) 4.3 meq/L 3.5-5.1 Specimen slightly (test code = 379) hemolyzed CHLORIDE (BEAKER) 97 meq/L 98-107 L (test code = 382) CO2 (BEAKER) (test 23 meq/L 22-29 code = 355) BLOOD UREA NITROGEN 15 mg/dL 7-21 (BEAKER) (test code = 354) CREATININE (BEAKER) 1.08 mg/dL 0.57-1.25 Specimen slightly (test code = 358) hemolyzed GLUCOSE RANDOM 386 mg/dL 70-105 H (BEAKER) (test code = 652) CALCIUM (BEAKER) 9.2 mg/dL 8.4-10.2 (test code = 697) EGFR (BEAKER) (test 68 mL/min/1.73 ESTIMA CHILANGO GFR IS code = 1092) sq m NOT ACCURATE CREATININE CLEARANCE IN PREDICTING GLOMERULAR FILTRATION RATE . ESTIMATED GFR I S NOT APPLICABLE FOR DIALYSIS PATIEN TS. 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 - KJ [id number] 14:15:30 Test Item Value Reference Range Interpretation Comments MAGNESIUM (BEAKER) 1.7 mg/dL 1.6-2.6 Specimen slightly (test code = 627) hemolyzed 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 - KJ [id number] 14:15:30 Test Item Value Reference Range Interpretation Comments PHOSPHORUS (BEAKER) 2.5 mg/dL 2.3-4.7 Specimen slightly (test code = 604) hemolyzed Truck Driver Teamster ZI UNDERWOOD LPROTHROMBIN TIME/[id number] 13:45:58 Test Item Value Reference Range Interpretation Comments PROTIME (BEAKER) 14.9 seconds 11.9-14.2 H (test code = 759) INR (BEAKER) (test 1.19 See_Comment [Automat ed message] code = 370) The system avocadostore generated this result transmitted ref erence range: <=5.90. The reference range was not used to int erpret this result as normal/abnormal . RECOMMENDED COUMADIN/WARFARIN INR THERAPY RANGESSTANDARD DOSE: 2.0 - 3.0 Includes: PROPHYLAXIS forvenous thrombosis, systemic embolization; TREATMENT for venous thrombosis and/or pulmonary embolus.HIGH RISK: Target INR is 2.5-3.5 for patients with mechanical heart valves.CBC W/PLT COUNT & AUTO DIFFERENTIAL 2021-06-23 13:37:36 Test Item Value Reference Range Interpretation Comments WHITE BLOOD CELL COUNT (BEAKER) 2.6 K/ L 3.5-10.5 L (test code = 775) RED BLOOD CELL COUNT (BEAKER) 5.20 M/ L 4.63-6.08 (test code = 761) HEMOGLOBIN (BEAKER) (test code = 12.5 GM/DL 13.7-17.5 L 410) HEMATOCRIT (BEAKER) (test code = 40.0 % 40.1-51.0 L 411) MEAN CORPUSCULAR VOLUME (BEAKER) 76.9 fL 79.0-92.2 L (test code = 753) MEAN CORPUSCULAR HEMOGLOBIN 24.0 pg 25.7-32.2 L (BEAKER) (test code = 751) MEAN CORPUSCULAR HEMOGLOBIN CONC 31.3 GM/DL 32.3-36.5 L (BEAKER) (test code = 752) RED CELL DISTRIBUTION WIDTH 17.0 % 11.6-14.4 H (BEAKER) (test code = 412) PLATELET COUNT (BEAKER) (test code 82 K/CU MM 150-450 L = 756) MEAN PLATELET VOLUME (BEAKER) 10.8 fL 9.4-12.4 (test code = 754) NUCLEATED RED BLOOD CELLS (BEAKER) 0 /100 WBC 0-0 (test code = 413) NEUTROPHILS RELATIVE PERCENT 68 % (BEAKER) (test code = 429) LYMPHOCYTES RELATIVE PERCENT 18 % (BEAKER) (test code = 430) MONOCYTES RELATIVE PERCENT 11 % (BEAKER) (test code = 431) EOSINOPHILS RELATIVE PERCENT 3 % (BEAKER) (test code = 432) BASOPHILS RELATIVE PERCENT 0 % (BEAKER) (test code = 437) NEUTROPHILS ABSOLUTE COUNT 1.76 K/ L 1.78-5.38 L (BEAKER) (test code = 670) LYMPHOCYTES ABSOLUTE COUNT 0.46 K/ L 1.32-3.57 L (BEAKER) (test code = 414) MONOCYTES ABSOLUTE COUNT (BEAKER) 0.28 K/ L 0.30-0.82 L (test code = 415) EOSINOPHILS ABSOLUTE COUNT 0.07 K/ L 0.04-0.54 (BEAKER) (test code = 416) BASOPHILS ABSOLUTE COUNT (BEAKER) 0.01 K/ L 0.01-0.08 (test code = 417) IMMATURE GRANULOCYTES-RELATIVE 0 % 0-1 PERCENT (BEAKER) (test code = 2801) COMPREHENSIVE METABOLIC [id number] 12:23:08 Test Item Value Reference Range Interpretation Comments TOTAL PROTEIN 7.3 gm/dL 6.0-8.3 (BEAKER) (test code = 770) ALBUMIN (BEAKER) 3.4 g/dL 3.5-5.0 L (test code = 1145) ALKALINE PHOSPHATASE 83 U/L 40-150 (BEAKER) (test code = 346) BILIRUBIN TOTAL 1.7 mg/dL 0.2-1.2 H (BEAKER) (test code = 377) SODIUM (BEAKER) (test 136 meq/L 136-145 code = 381) POTASSIUM (BEAKER) 4.0 meq/L 3.5-5.1 (test code = 379) CHLORIDE (BEAKER) 96 meq/L 98-107 L (test code = 382) CO2 (BEAKER) (test 33 meq/L 22-29 H code = 355) BLOOD UREA NITROGEN 11 mg/dL 7-21 (BEAKER) (test code = 354) CREATININE (BEAKER) 1.14 mg/dL 0.57-1.25 (test code = 358) GLUCOSE RANDOM 353 mg/dL 70-105 H (BEAKER) (test code = 652) CALCIUM (BEAKER) 9.8 mg/dL 8.4-10.2 (test code = 697) AST (SGOT) (BEAKER) 20 U/L 5-34 (test code = 353) ALT (SGPT) (BEAKER) 14 U/L 6-55 (test code = 347) EGFR (BEAKER) (test 64 mL/min/1.73 ESTIMA CHILANGO GFR IS code = 1092) sq m NOT ACCURATE CREATININE CLEARANCE IN PREDICTING GLOMERULAR FILTRATION RATE . ESTIMATED GFR I S NOT APPLICABLE FOR DIALYSIS PATIEN TS. 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 Boo JODIE FBILIRUBIN, [id number] 12:23:08 Test Item Value Reference Range Interpretation Comments BILIRUBIN DIRECT (BEAKER) (test 0.8 mg/dL 0.1-0.5 H code = 706) [employer] ZI Haddad JODIE FPROTHROMBIN TIME/[id number] 12:13:04 Test Item Value Reference Range Interpretation Comments PROTIME (BEAKER) 16.5 seconds 11.9-14.2 H (test code = 759) INR (BEAKER) (test 1.35 See_Comment [Automat ed message] code = 370) The system [employer] generated this result transmitted ref erence range: <=5.90. The reference range was not used to int erpret this result as normal/abnormal . RECOMMENDED COUMADIN/WARFARIN INR THERAPY RANGESSTANDARD DOSE: 2.0 - 3.0 Includes: PROPHYLAXIS forvenous thrombosis, systemic embolization; TREATMENT for venous thrombosis and/or pulmonary embolus.HIGH RISK: Target INR is 2.5-3.5 for patients with mechanical heart valves.CBC W/PLT COUNT & AUTO DIFFERENTIAL 2021-06-13 12:04:58 Test Item Value Reference Range Interpretation Comments WHITE BLOOD CELL COUNT (BEAKER) 2.2 K/ L 3.5-10.5 L (test code = 775) RED BLOOD CELL COUNT (BEAKER) 5.06 M/ L 4.63-6.08 (test code = 761) HEMOGLOBIN (BEAKER) (test code = 12.2 GM/DL 13.7-17.5 L 410) HEMATOCRIT (BEAKER) (test code = 39.7 % 40.1-51.0 L 411) MEAN CORPUSCULAR VOLUME (BEAKER) 78.5 fL 79.0-92.2 L (test code = 753) MEAN CORPUSCULAR HEMOGLOBIN 24.1 pg 25.7-32.2 L (BEAKER) (test code = 751) MEAN CORPUSCULAR HEMOGLOBIN CONC 30.7 GM/DL 32.3-36.5 L (BEAKER) (test code = 752) RED CELL DISTRIBUTION WIDTH 15.5 % 11.6-14.4 H (BEAKER) (test code = 412) PLATELET COUNT (BEAKER) (test code 88 K/CU MM 150-450 L = 756) MEAN PLATELET VOLUME (BEAKER) 10.6 fL 9.4-12.4 (test code = 754) NUCLEATED RED BLOOD CELLS (BEAKER) 0 /100 WBC 0-0 (test code = 413) NEUTROPHILS RELATIVE PERCENT 67 % (BEAKER) (test code = 429) LYMPHOCYTES RELATIVE PERCENT 17 % (BEAKER) (test code = 430) MONOCYTES RELATIVE PERCENT 10 % (BEAKER) (test code = 431) EOSINOPHILS RELATIVE PERCENT 5 % (BEAKER) (test code = 432) BASOPHILS RELATIVE PERCENT 1 % (BEAKER) (test code = 437) NEUTROPHILS ABSOLUTE COUNT 1.45 K/ L 1.78-5.38 L (BEAKER) (test code = 670) LYMPHOCYTES ABSOLUTE COUNT 0.38 K/ L 1.32-3.57 L (BEAKER) (test code = 414) MONOCYTES ABSOLUTE COUNT (BEAKER) 0.22 K/ L 0.30-0.82 L (test code = 415) EOSINOPHILS ABSOLUTE COUNT 0.10 K/ L 0.04-0.54 (BEAKER) (test code = 416) BASOPHILS ABSOLUTE COUNT (BEAKER) 0.02 K/ L 0.01-0.08 (test code = 417) IMMATURE GRANULOCYTES-RELATIVE 1 % 0-1 PERCENT (BEAKER) (test code = 2801) [id number] 21:22:00 Test Item Value Reference Range Interpretation Comments Zinc (test 91 See_Comment This test was code = developed and i ts [id number]) analytical perf ormance characteristics have been determined by [employer]. It has not been cl eared or approved by the FDA. This assay has been validated pursu ant to the CLIA regula tions and is used for clinical purpos es. [Automated mess age] The system which ge nerated this result tra nsmitted reference range : 60 - 130 mcg/dL. The reference range was not used to interpr et this result as normal/abnormal . SRAVANTHI (test Performing Lab code = SRAVANTHI) *HAILEE [employer] [facility], [address] [place] [id number] George Huertas MD [facility] + [id number] 22:24:00 Test Item Value Reference Range Interpretation Comments Result (test code = No fungus isolated in 6463-4) 28 days Fungus Smear (test No fungi seen code = 1406) [facility] + [id number] 22:24:00 Test Item Value Reference Range Interpretation Comments CULTURE (BEAKER) (test No fungus isolated in code = 1095) 28 days FUNGUS SMEAR (BEAKER) No fungi seen (test code = 1406) BLOOD [id number] 19:01:00 Test Item Value Reference Range Interpretation Comments CULTURE (BEAKER) (test No growth in 5 days code = 1095) BLOOD [id number] 19:01:00 Test Item Value Reference Range Interpretation Comments CULTURE (BEAKER) (test No growth in 5 days code = 1095) POCT-GLUCOSE [id number] 07:46:00 Test Item Value Reference Range Interpretation Comments POC-GLUCOSE METER 200 mg/dL 70-110 H : TESTED A T [facility] 6720 (BEAKER) (test code = [facility], 1538) [address]: Truck Driver Teamster/Techni bradford ID = [id number] for [place] panda (pca2), [place] POCT-GLUCOSE [id number] 22:05:00 Test Item Value Reference Range Interpretation Comments POC-GLUCOSE METER 295 mg/dL 70-110 H : TESTED A T [facility] 6720 (BEAKER) (test code = [facility], 1538) [address]: Truck Driver Teamster/Techni bradford ID = [id number] for DA VIS, LORENA ECHO W CONTRAST & [id number] 19:28:53Ejection FractionSLE ECHO HEARTLAB MKCKESSON [facility] 2021-04-12 17:20:00 Test Item Value Reference Range Interpretation Comments POC-GLUCOSE METER 150 mg/dL 70-110 H : TESTED A T [facility] 6720 (BEAKER) (test code = [facility], 1538) 35521: Truck Driver Teamster/Techni bradford ID = [id number] for [place] DARBY, BALJEETNEKIP POCT-GLUCOSE [id number] 11:50:00 Test Item Value Reference Range Interpretation Comments POC-GLUCOSE METER 314 mg/dL 70-110 H : TESTED A T [facility] 6720 (BEAKER) (test code = [facility], 1538) 18516: Truck Driver Teamster/Techni bradford ID = [id number] for [place] LLIAMS, TYNEKA HIGH SENSITIVITY TROPONIN [id number] 07:48:00 Test Item Value Reference Range Interpretation Comments HIGH SENSITIVITY 3094 pg/ml See_Comment HH [Automated message] TROPONIN I (test code The sy stem which = [id number]) generated this result transmitted ref erence range: <=35. Th e reference range was not used to int erpret this result as normal/abnormal . 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 - DERECKAYA LThe SWITCH CREW SUPERVISOR STAT High Sensitivity Troponin-I results should be used in conjunction with other diagnostic information such as ECG, clinical observations and information, and patient symptoms to aid in the diagnosis of DE.BASIC METABOLIC [id number] 07:34:00 Test Item Value Reference Range Interpretation Comments SODIUM (BEAKER) 138 meq/L 136-145 (test code = 381) POTASSIUM (BEAKER) 4.1 meq/L 3.5-5.1 (test code = 379) CHLORIDE (BEAKER) 106 meq/L 98-107 (test code = 382) CO2 (BEAKER) (test 26 meq/L 22-29 code = 355) BLOOD UREA NITROGEN 10 mg/dL 7-21 (BEAKER) (test code = 354) CREATININE (BEAKER) 0.71 mg/dL 0.57-1.25 (test code = 358) GLUCOSE RANDOM 139 mg/dL 70-105 H (BEAKER) (test code = 652) CALCIUM (BEAKER) 9.0 mg/dL 8.4-10.2 (test code = 697) EGFR (BEAKER) (test 110 mL/min/1.73 ESTIM ATED GFR IS code = 1092) sq m NOT ACCURATE CREATININE CLEARANCE IN PREDICTING GLOMERULAR FILTRATION RATE . ESTIMATED GFR I S NOT APPLICABLE FOR DIALYSIS PATIEN TS. 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 - [id number] 07:34:00 Test Item Value Reference Range Interpretation Comments MAGNESIUM (BEAKER) (test code = 1.4 mg/dL 1.6-2.6 L 627) 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 - ADMINPOCT-GLUCOSE [id number] 07:33:00 Test Item Value Reference Range Interpretation Comments POC-GLUCOSE METER 139 mg/dL 70-110 H : TESTED A T [facility] 6720 (BEAKER) (test code = [facility] [place], 1538) [id number]: Truck Driver Teamster/Techni bradford ID = [id number] for KEREN GANDHI PROTHROMBIN TIME/[id number] 07:22:00 Test Item Value Reference Range Interpretation Comments PROTIME (BEAKER) 15.0 seconds 11.9-14.2 H (test code = 759) INR (BEAKER) (test 1.20 See_Comment [Automat ed message] code = 370) The system avocadostore generated this result transmitted ref erence range: <=5.90. The reference range was not used to int erpret this result as normal/abnormal . RECOMMENDED COUMADIN/WARFARIN INR THERAPY RANGESSTANDARD DOSE: 2.0 - 3.0 Includes: PROPHYLAXIS forvenous thrombosis, systemic embolization; TREATMENT for venous thrombosis and/or pulmonary embolus.HIGH RISK: Target INR is 2.5-3.5 for patients with mechanical heart valves.CBC W/PLT COUNT & AUTO DIFFERENTIAL 2021-04-12 07:15:00 Test Item Value Reference Range Interpretation Comments WHITE BLOOD CELL COUNT (BEAKER) 2.0 K/ L 3.5-10.5 L (test code = 775) RED BLOOD CELL COUNT (BEAKER) 4.37 M/ L 4.63-6.08 L (test code = 761) HEMOGLOBIN (BEAKER) (test code = 11.5 GM/DL 13.7-17.5 L 410) HEMATOCRIT (BEAKER) (test code = 36.4 % 40.1-51.0 L 411) MEAN CORPUSCULAR VOLUME (BEAKER) 83.3 fL 79.0-92.2 (test code = 753) MEAN CORPUSCULAR HEMOGLOBIN 26.3 pg 25.7-32.2 (BEAKER) (test code = 751) MEAN CORPUSCULAR HEMOGLOBIN CONC 31.6 GM/DL 32.3-36.5 L (BEAKER) (test code = 752) RED CELL DISTRIBUTION WIDTH 16.4 % 11.6-14.4 H (BEAKER) (test code = 412) PLATELET COUNT (BEAKER) (test code 79 K/CU MM 150-450 L = 756) MEAN PLATELET VOLUME (BEAKER) 9.5 fL 9.4-12.4 (test code = 754) NUCLEATED RED BLOOD CELLS (BEAKER) 0 /100 WBC 0-0 (test code = 413) NEUTROPHILS RELATIVE PERCENT 52 % (BEAKER) (test code = 429) LYMPHOCYTES RELATIVE PERCENT 29 % (BEAKER) (test code = 430) MONOCYTES RELATIVE PERCENT 11 % (BEAKER) (test code = 431) EOSINOPHILS RELATIVE PERCENT 7 % (BEAKER) (test code = 432) BASOPHILS RELATIVE PERCENT 1 % (BEAKER) (test code = 437) NEUTROPHILS ABSOLUTE COUNT 1.06 K/ L 1.78-5.38 L (BEAKER) (test code = 670) LYMPHOCYTES ABSOLUTE COUNT 0.59 K/ L 1.32-3.57 L (BEAKER) (test code = 414) MONOCYTES ABSOLUTE COUNT (BEAKER) 0.22 K/ L 0.30-0.82 L (test code = 415) EOSINOPHILS ABSOLUTE COUNT 0.15 K/ L 0.04-0.54 (BEAKER) (test code = 416) BASOPHILS ABSOLUTE COUNT (BEAKER) 0.01 K/ L 0.01-0.08 (test code = 417) IMMATURE GRANULOCYTES-RELATIVE 0 % 0-1 PERCENT (BEAKER) (test code = 2801) POCT-GLUCOSE [id number] 21:44:00 Test Item Value Reference Range Interpretation Comments POC-GLUCOSE METER 225 mg/dL 70-110 H : TESTED A T [facility] 6720 (BEAKER) (test code = [facility], 153) 75186: Truck Driver Teamster/Techni bradford ID = [id number] for LORENA NOVA POCT-GLUCOSE [id number] 17:17:00 Test Item Value Reference Range Interpretation Comments POC-GLUCOSE METER 287 mg/dL 70-110 H : TESTED A T [facility] 6720 (BEAKER) (test code = [facility], 153) 27474: Truck Driver Teamster/Techni bradford ID = [id number] for KEREN GANDHI POCT-GLUCOSE [id number] 12:27:00 Test Item Value Reference Range Interpretation Comments POC-GLUCOSE METER 176 mg/dL 70-110 H : TESTED A T [facility] 6720 (BEAKER) (test code = [facility], 153) 55927: Truck Driver Teamster/Techni bradford ID = [id number] for ODILON PASTOR, KEREN HEPATIC FUNCTION [id number] 09:28:00 Test Item Value Reference Range Interpretation Comments TOTAL PROTEIN (BEAKER) (test code = 6.9 gm/dL 6.0-8.3 770) ALBUMIN (BEAKER) (test code = 1145) 2.9 g/dL 3.5-5.0 L BILIRUBIN TOTAL (BEAKER) (test code 0.7 mg/dL 0.2-1.2 = 377) BILIRUBIN DIRECT (BEAKER) (test 0.4 mg/dL 0.1-0.5 code = 706) ALKALINE PHOSPHATASE (BEAKER) (test 76 U/L 40-150 code = 346) AST (SGOT) (BEAKER) (test code = 22 U/L 5-34 353) ALT (SGPT) (BEAKER) (test code = 8 U/L 6-55 347) 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 - JODIE MONICAOCT-GLUCOSE [id number] 08:10:00 Test Item Value Reference Range Interpretation Comments POC-GLUCOSE METER 153 mg/dL 70-110 H : [facility] ([facility]) (test code = [facility], 1538) 98098: Truck Driver Teamster/Techni bradford ID = [id number] for [place] DARBY, KEREN BASIC METABOLIC [id number] 07:18:00 Test Item Value Reference Range Interpretation Comments SODIUM (BEAKER) 137 meq/L 136-145 (test code = 381) POTASSIUM (BEAKER) 4.3 meq/L 3.5-5.1 (test code = 379) CHLORIDE (BEAKER) 105 meq/L 98-107 (test code = 382) CO2 (BEAKER) (test 25 meq/L 22-29 code = 355) BLOOD UREA NITROGEN 12 mg/dL 7-21 (BEAKER) (test code = 354) CREATININE (BEAKER) 0.77 mg/dL 0.57-1.25 (test code = 358) GLUCOSE RANDOM 159 mg/dL 70-105 H (BEAKER) (test code = 652) CALCIUM (BEAKER) 9.4 mg/dL 8.4-10.2 (test code = 697) EGFR (BEAKER) (test 100 mL/min/1.73 ESTIM ATED GFR IS code = 1092) sq m NOT ACCURATE CREATININE CLEARANCE IN PREDICTING GLOMERULAR FILTRATION RATE . ESTIMATED GFR I S NOT APPLICABLE FOR DIALYSIS PATIEN TS. 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 - KELSIE [id number] 07:18:00 Test Item Value Reference Range Interpretation Comments MAGNESIUM (BEAKER) (test code = 1.6 mg/dL 1.6-2.6 627) 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 - KELSIE MHIGH SENSITIVITY TROPONIN [id number] 07:10:00 Test Item Value Reference Range Interpretation Comments HIGH SENSITIVITY 2987 pg/ml See_Comment HH [Automated message] TROPONIN I (test code The sy stem which = [id number]) generated this result transmitted ref erence range: <=35. Th e reference range was not used to int erpret this result as normal/abnormal . 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 - KELSIE Mattson SWITCH CREW SUPERVISOR STAT High Sensitivity Troponin-I results should be used in conjunction with other diagnostic information such as ECG, clinical observations and information, and patient symptoms to aid in the diagnosis of DE.PROTHROMBIN TIME/[id number] 07:02:00 Test Item Value Reference Range Interpretation Comments PROTIME (BEAKER) 15.2 seconds 11.9-14.2 H (test code = 759) INR (BEAKER) (test 1.22 See_Comment [Automat ed message] code = 370) The system avocadostore generated this result transmitted ref erence range: <=5.90. The reference range was not used to int erpret this result as normal/abnormal . RECOMMENDED COUMADIN/WARFARIN INR THERAPY RANGESSTANDARD DOSE: 2.0 - 3.0 Includes: PROPHYLAXIS forvenous thrombosis, systemic embolization; TREATMENT for venous thrombosis and/or pulmonary embolus.HIGH RISK: Target INR is 2.5-3.5 for patients with mechanical heart valves.CBC W/PLT COUNT & AUTO DIFFERENTIAL 2021-04-11 06:46:00 Test Item Value Reference Range Interpretation Comments WHITE BLOOD CELL COUNT (BEAKER) 2.1 K/ L 3.5-10.5 L (test code = 775) RED BLOOD CELL COUNT (BEAKER) 4.19 M/ L 4.63-6.08 L (test code = 761) HEMOGLOBIN (BEAKER) (test code = 10.9 GM/DL 13.7-17.5 L 410) HEMATOCRIT (BEAKER) (test code = 35.7 % 40.1-51.0 L 411) MEAN CORPUSCULAR VOLUME (BEAKER) 85.2 fL 79.0-92.2 (test code = 753) MEAN CORPUSCULAR HEMOGLOBIN 26.0 pg 25.7-32.2 (BEAKER) (test code = 751) MEAN CORPUSCULAR HEMOGLOBIN CONC 30.5 GM/DL 32.3-36.5 L (BEAKER) (test code = 752) RED CELL DISTRIBUTION WIDTH 16.4 % 11.6-14.4 H (BEAKER) (test code = 412) PLATELET COUNT (BEAKER) (test code 82 K/CU MM 150-450 L = 756) MEAN PLATELET VOLUME (BEAKER) 10.8 fL 9.4-12.4 (test code = 754) NUCLEATED RED BLOOD CELLS (BEAKER) 0 /100 WBC 0-0 (test code = 413) NEUTROPHILS RELATIVE PERCENT 55 % (BEAKER) (test code = 429) LYMPHOCYTES RELATIVE PERCENT 29 % (BEAKER) (test code = 430) MONOCYTES RELATIVE PERCENT 11 % (BEAKER) (test code = 431) EOSINOPHILS RELATIVE PERCENT 5 % (BEAKER) (test code = 432) BASOPHILS RELATIVE PERCENT 1 % (BEAKER) (test code = 437) NEUTROPHILS ABSOLUTE COUNT 1.14 K/ L 1.78-5.38 L (BEAKER) (test code = 670) LYMPHOCYTES ABSOLUTE COUNT 0.59 K/ L 1.32-3.57 L (BEAKER) (test code = 414) MONOCYTES ABSOLUTE COUNT (BEAKER) 0.22 K/ L 0.30-0.82 L (test code = 415) EOSINOPHILS ABSOLUTE COUNT 0.10 K/ L 0.04-0.54 (BEAKER) (test code = 416) BASOPHILS ABSOLUTE COUNT (BEAKER) 0.01 K/ L 0.01-0.08 (test code = 417) IMMATURE GRANULOCYTES-RELATIVE 1 % 0-1 PERCENT (BEAKER) (test code = 2801) POCT-GLUCOSE [id number] 21:24:00 Test Item Value Reference Range Interpretation Comments POC-GLUCOSE METER 250 mg/dL 70-110 H : TESTED [facility] T [facility] 6720 (BEAKER) (test code = [facility] [place], 1538) 26040: Truck Driver Teamster/Techni bradford ID = [id number] for LINDSAY CHARLES LORENA CBC W/PLT COUNT & AUTO [id number] 10:14:00 Test Item Value Reference Range Interpretation Comments WHITE BLOOD CELL COUNT (BEAKER) 1.9 K/ L 3.5-10.5 L (test code = 775) RED BLOOD CELL COUNT (BEAKER) 4.14 M/ L 4.63-6.08 L (test code = 761) HEMOGLOBIN (BEAKER) (test code = 10.8 GM/DL 13.7-17.5 L 410) HEMATOCRIT (BEAKER) (test code = 34.8 % 40.1-51.0 L 411) MEAN CORPUSCULAR VOLUME (BEAKER) 84.1 fL 79.0-92.2 (test code = 753) MEAN CORPUSCULAR HEMOGLOBIN 26.1 pg 25.7-32.2 (BEAKER) (test code = 751) MEAN CORPUSCULAR HEMOGLOBIN CONC 31.0 GM/DL 32.3-36.5 L (BEAKER) (test code = 752) RED CELL DISTRIBUTION WIDTH 16.2 % 11.6-14.4 H (BEAKER) (test code = 412) PLATELET COUNT (BEAKER) (test code 81 K/CU MM 150-450 L = 756) MEAN PLATELET VOLUME (BEAKER) 10.0 fL 9.4-12.4 (test code = 754) NUCLEATED RED BLOOD CELLS (BEAKER) 0 /100 WBC 0-0 (test code = 413) (CELLAVISION MANUAL DIFF)2021-04-10 10:14:00 Test Item Value Reference Range Interpretation Comments NEUTROPHILS - REL 66 % (CELLAVISION)(BEAKER) (test code = 2816) LYMPHOCYTES - REL 24 % (CELLAVISION)(BEAKER) (test code = 2817) MONOCYTES - REL 7 % (CELLAVISION)(BEAKER) (test code = 2818) EOSINOPHILS - REL 1 % (CELLAVISION)(BEAKER) (test code = 2819) ATYPICAL LYMPHOCYTES - REL 2 % 0-0 H (CELLAVISION)(BEAKER) (test code = 2829) NEUTROPHILS - ABS 1.25 K/ul 1.78-5.38 L (CELLAVISION)(BEAKER) (test code = 2830) LYMPHOCYTES - ABS 0.46 K/ul 1.32-3.57 L (CELLAVISION)(BEAKER) (test code = 2831) MONOCYTES - ABS 0.13 K/uL 0.30-0.82 L (CELLAVISION)(BEAKER) (test code = 2832) EOSINOPHILS - ABS 0.02 K/uL 0.04-0.54 L (CELLAVISION)(BEAKER) (test code = 2834) ATYPICAL LYMPHOCYTES - ABS 0.04 K/uL 0.00-0.00 H (CELLAVISION)(BEAKER) (test code = 2858) TOTAL COUNTED (BEAKER) (test code = 100 1351) WBC MORPHOLOGY (BEAKER) (test code Normal = 487) PLT MORPHOLOGY (BEAKER) (test code Normal = 486) POLYCHROMATOPHILLIC RBCS(BEAKER) 1+ few (test code = 478) POIKILOCYTES (BEAKER) (test code = 1+ few 966) ELLIPTOCYTES (BEAKER) (test code = 1+ few 962) OVALOCYTES (BEAKER) (test code = 1+ few 477) ARTIFACT (CELLAVISION)(BEAKER) Present (test code = 3432) PLATELET CONCENTRATION Decreased (CELLAVISION)(BEAKER) (test code = 3438) 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 - Eliza Wakefield comments: Slide comments:HIGH SENSITIVITY TROPONIN [id number] 08:23:00 Test Item Value Reference Range Interpretation Comments HIGH SENSITIVITY 2952 pg/ml See_Comment HH [Automated message] TROPONIN I (test code The sy stem which = [id number]) generated this result transmitted ref erence range: <=35. Th e reference range was not used to int erpret this result as normal/abnormal . 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 - DBThe SWITCH CREW SUPERVISOR STAT High Sensitivity Troponin-I results should be used in conjunctionwith other diagnostic information such as ECG, clinical observations and information, and patient symptoms to aid in the diagnosis of DE.Creatine Kinase (CK)2021-04-10 08:13:00 Test Item Value Reference Range Interpretation Comments Total CK (test code = 15 U/L 29-200 L 2157-6) SRAVANTHI (test code = SRAVANTHI) 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 - DB Lab Interpretation (test Abnormal code = 45494-0) [facility] 08:13:00 Test Item Value Reference Range Interpretation Comments CREATINE KINASE TOTAL (BEAKER) (test 15 U/L 29-200 L code = 380) 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 - DBBASIC METABOLIC [id number] 07:56:00 Test Item Value Reference Range Interpretation Comments SODIUM (BEAKER) 136 meq/L 136-145 (test code = 381) POTASSIUM (BEAKER) 4.1 meq/L 3.5-5.1 (test code = 379) CHLORIDE (BEAKER) 103 meq/L 98-107 (test code = 382) CO2 (BEAKER) (test 25 meq/L 22-29 code = 355) BLOOD UREA NITROGEN 14 mg/dL 7-21 (BEAKER) (test code = 354) CREATININE (BEAKER) 0.71 mg/dL 0.57-1.25 (test code = 358) GLUCOSE RANDOM 133 mg/dL 70-105 H (BEAKER) (test code = 652) CALCIUM (BEAKER) 9.2 mg/dL 8.4-10.2 (test code = 697) EGFR (BEAKER) (test 110 mL/min/1.73 ESTIM ATED GFR IS code = 1092) sq m NOT ACCURATE CREATININE CLEARANCE IN PREDICTING GLOMERULAR FILTRATION RATE . ESTIMATED GFR I S NOT APPLICABLE FOR DIALYSIS PATIEN TS. 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 - [id number] 07:56:00 Test Item Value Reference Range Interpretation Comments MAGNESIUM (BEAKER) (test code = 1.4 mg/dL 1.6-2.6 L 627) 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 - DBHEPATIC FUNCTION [id number] 07:56:00 Test Item Value Reference Range Interpretation Comments TOTAL PROTEIN (BEAKER) (test code = 6.3 gm/dL 6.0-8.3 770) ALBUMIN (BEAKER) (test code = 1145) 2.7 g/dL 3.5-5.0 L BILIRUBIN TOTAL (BEAKER) (test code 0.9 mg/dL 0.2-1.2 = 377) BILIRUBIN DIRECT (BEAKER) (test 0.5 mg/dL 0.1-0.5 code = 706) ALKALINE PHOSPHATASE (BEAKER) (test 68 U/L 40-150 code = 346) AST (SGOT) (BEAKER) (test code = 20 U/L 5-34 353) ALT (SGPT) (BEAKER) (test code = 9 U/L 6-55 347) 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 - DBPROTHROMBIN TIME/[id number] 07:38:00 Test Item Value Reference Range Interpretation Comments PROTIME (BEAKER) 15.7 seconds 11.9-14.2 H (test code = 759) INR (BEAKER) (test 1.27 See_Comment [Automat ed message] code = 370) The system avocadostore generated this result transmitted ref erence range: <=5.90. The reference range was not used to int erpret this result as normal/abnormal . RECOMMENDED COUMADIN/WARFARIN INR THERAPY RANGESSTANDARD DOSE: 2.0 - 3.0 Includes: PROPHYLAXIS forvenous thrombosis, systemic embolization; TREATMENT for venous thrombosis and/or pulmonary embolus.HIGH RISK: Target INR is 2.5-3.5 for patients with mechanical heart valves.Venous doppler legs [id number] 23:01:06Ejection FractionSLE ECHO HEARTLAB MKCKESSON [facility]High[facility] CenterPO[facility]GLU[facility]SE [id number] 21:49:00 Test Item Value Reference Range Interpretation Comments POC-GLUCOSE METER 240 mg/dL 70-110 H : TESTED A T [facility] 6720 (BEAKER) (test code [facility], = 1538) 64930: Truck Driver Teamster/Techni bradford ID = [id number] for Apolonia Huitron POCT-GLUCOSE [id number] 17:23:00 Test Item Value Reference Range Interpretation Comments POC-GLUCOSE METER 281 mg/dL 70-110 H : TESTED A T [facility] 6720 (BEAKER) (test code = [facility], 1538) 32766: Truck Driver Teamster/Techni bradford ID = [id number] for Shannon hester (pca2)Bianka COMPREHENSIVE METABOLIC [id number] 14:31:00 Test Item Value Reference Range Interpretation Comments TOTAL PROTEIN 6.4 gm/dL 6.0-8.3 (BEAKER) (test code = 770) ALBUMIN (BEAKER) 2.7 g/dL 3.5-5.0 L (test code = 1145) ALKALINE PHOSPHATASE 73 U/L 40-150 (BEAKER) (test code = 346) BILIRUBIN TOTAL 0.6 mg/dL 0.2-1.2 (BEAKER) (test code = 377) SODIUM (BEAKER) (test 134 meq/L 136-145 L code = 381) POTASSIUM (BEAKER) 4.1 meq/L 3.5-5.1 (test code = 379) CHLORIDE (BEAKER) 101 meq/L 98-107 (test code = 382) CO2 (BEAKER) (test 25 meq/L 22-29 code = 355) BLOOD UREA NITROGEN 16 mg/dL 7-21 (BEAKER) (test code = 354) CREATININE (BEAKER) 0.84 mg/dL 0.57-1.25 (test code = 358) GLUCOSE RANDOM 278 mg/dL 70-105 H (BEAKER) (test code = 652) CALCIUM (BEAKER) 8.9 mg/dL 8.4-10.2 (test code = 697) AST (SGOT) (BEAKER) 22 U/L 5-34 (test code = 353) ALT (SGPT) (BEAKER) 9 U/L 6-55 (test code = 347) EGFR (BEAKER) (test 91 mL/min/1.73 ESTIMA CHILANGO GFR IS code = 1092) sq m NOT ACCURATE CREATININE CLEARANCE IN PREDICTING GLOMERULAR FILTRATION RATE . ESTIMATED GFR I S NOT APPLICABLE FOR DIALYSIS PATIEN TS. 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 - ROSIANGPROTHROMBIN TIME/[id number] 14:26:00 Test Item Value Reference Range Interpretation Comments PROTIME (BEAKER) 15.4 seconds 11.9-14.2 H (test code = 759) INR (BEAKER) (test 1.24 See_Comment [Automat ed message] code = 370) The system avocadostore generated this result transmitted ref erence range: <=5.90. The reference range was not used to int erpret this result as normal/abnormal . RECOMMENDED COUMADIN/WARFARIN INR THERAPY RANGESSTANDARD DOSE: 2.0 - 3.0 Includes: PROPHYLAXIS forvenous thrombosis, systemic embolization; TREATMENT for venous thrombosis and/or pulmonary embolus.HIGH RISK: Target INR is 2.5-3.5 for patients with mechanical heart valves.CBC W/PLT COUNT & AUTO DIFFERENTIAL 2021-04-09 14:16:00 Test Item Value Reference Range Interpretation Comments WHITE BLOOD CELL COUNT (BEAKER) 2.0 K/ L 3.5-10.5 L (test code = 775) RED BLOOD CELL COUNT (BEAKER) 4.08 M/ L 4.63-6.08 L (test code = 761) HEMOGLOBIN (BEAKER) (test code = 10.7 GM/DL 13.7-17.5 L 410) HEMATOCRIT (BEAKER) (test code = 34.4 % 40.1-51.0 L 411) MEAN CORPUSCULAR VOLUME (BEAKER) 84.3 fL 79.0-92.2 (test code = 753) MEAN CORPUSCULAR HEMOGLOBIN 26.2 pg 25.7-32.2 (BEAKER) (test code = 751) MEAN CORPUSCULAR HEMOGLOBIN CONC 31.1 GM/DL 32.3-36.5 L (BEAKER) (test code = 752) RED CELL DISTRIBUTION WIDTH 16.4 % 11.6-14.4 H (BEAKER) (test code = 412) PLATELET COUNT (BEAKER) (test code 88 K/CU MM 150-450 L = 756) MEAN PLATELET VOLUME (BEAKER) 9.9 fL 9.4-12.4 (test code = 754) NUCLEATED RED BLOOD CELLS (BEAKER) 0 /100 WBC 0-0 (test code = 413) NEUTROPHILS RELATIVE PERCENT 55 % (BEAKER) (test code = 429) LYMPHOCYTES RELATIVE PERCENT 27 % (BEAKER) (test code = 430) MONOCYTES RELATIVE PERCENT 12 % (BEAKER) (test code = 431) EOSINOPHILS RELATIVE PERCENT 6 % (BEAKER) (test code = 432) BASOPHILS RELATIVE PERCENT 1 % (BEAKER) (test code = 437) NEUTROPHILS ABSOLUTE COUNT 1.10 K/ L 1.78-5.38 L (BEAKER) (test code = 670) LYMPHOCYTES ABSOLUTE COUNT 0.54 K/ L 1.32-3.57 L (BEAKER) (test code = 414) MONOCYTES ABSOLUTE COUNT (BEAKER) 0.24 K/ L 0.30-0.82 L (test code = 415) EOSINOPHILS ABSOLUTE COUNT 0.12 K/ L 0.04-0.54 (BEAKER) (test code = 416) BASOPHILS ABSOLUTE COUNT (BEAKER) 0.01 K/ L 0.01-0.08 (test code = 417) IMMATURE GRANULOCYTES-RELATIVE 1 % 0-1 PERCENT (BEAKER) (test code = 2801) POCT-GLUCOSE [id number] 12:24:00 Test Item Value Reference Range Interpretation Comments POC-GLUCOSE METER 249 mg/dL 70-110 H : TESTED A T [facility] 6720 (BEAKER) (test code = [facility], 1538) 65861: Truck Driver Teamster/Techni bradford ID = [id number] for Shannon hester (pca2)Bianka POCT-GLUCOSE [id number] 07:36:00 Test Item Value Reference Range Interpretation Comments POC-GLUCOSE METER 124 mg/dL 70-110 H : TESTED A T [facility] 6720 ([facility]) (test code = [facility], 1538) 32649: Truck Driver Teamster/Techni bradford ID = [id number] for Shannon hester (pca2)Bianka POCT-GLUCOSE [id number] 22:44:00 Test Item Value Reference Range Interpretation Comments POC-GLUCOSE METER 300 mg/dL 70-110 H : TESTED A T [facility] 6720 ([facility]) (test code = [facility], 1538) 05024: Truck Driver Teamster/Techni bradford ID = [id number] for ARAVIND JONESI POCT-GLUCOSE [id number] 16:36:00 Test Item Value Reference Range Interpretation Comments POC-GLUCOSE METER 304 mg/dL 70-110 H : TESTED A T [facility] 6720 ([facility]) (test code = [facility], 1538) 97982: Truck Driver Teamster/Techni bradford ID = [id number] for Kristi Santos LACTIC ACID, [id number] 16:04:00 Test Item Value Reference Range Interpretation Comments LACTATE BLOOD VENOUS 1.62 mmol/L 0.50-2.20 Specime n slightly (2) ([facility]) (test hemolyzed code = 2872) 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 - DBPOCT-GLUCOSE [id number] 14:37:00 Test Item Value Reference Range Interpretation Comments POC-GLUCOSE METER 150 mg/dL 70-110 H : TESTED A T [facility] 6720 ([facility]) (test code = [facility], [facility]8) 10061: Truck Driver Teamster/Techni bradford ID = [id number] for Kristi Santos HIGH SENSITIVITY TROPONIN [id number] 11:32:00 Test Item Value Reference Range Interpretation Comments HIGH SENSITIVITY 2976 pg/ml See_Comment HH [Automated message] TROPONIN I (test code The sy stem which = [id number]) generated this result transmitted ref erence range: <=35. Th e reference range was not used to int erpret this result as normal/abnormal . 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 - ELAINE CThe SWITCH CREW SUPERVISOR STAT High Sensitivity Troponin-I results should be used in conjunction with other diagnostic information such as ECG, clinical observations and information, and patientsymptoms to aid in the diagnosis of DE. [id number] 11:17:00 Test Item Value Reference Range Interpretation Comments MAGNESIUM (SEAN) (test code = 2.4 mg/dL 1.6-2.6 627) 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 - ELAINE CPOCT-GLUCOSE [id number] 10:58:00 Test Item Value Reference Range Interpretation Comments POC-GLUCOSE METER 159 mg/dL 70-110 H : TESTED A T [facility] 6720 (ESAN) (test code = HANNAH Jones [facility], 1538) 89087: Truck Driver Teamster/Techni bradford ID = [id number] for Kristi Santos HEMOGLOBIN [id number] 08:46:00 Test Item Value Reference Range Interpretation Comments HEMOGLOBIN A1C (SEAN) (test code = 8.2 % 4.3-6.1 H 368) Limited 2D [id number] 08:25:11Ejection FractionSLEH ECHO HEARTLAB [facility] [id number] 07:28:00 Test Item Value Reference Range Interpretation Comments POC-GLUCOSE METER 148 mg/dL 70-110 H : TESTED A T [facility] 6720 (SEAN) (test code = HANNAH Jones [facility], 1538) 20591: Truck Driver Teamster/Techni bradford ID = [id number] for Kristi Santos HIGH SENSITIVITY TROPONIN [id number] 06:57:00 Test Item Value Reference Range Interpretation Comments HIGH SENSITIVITY 2948 pg/ml See_Comment HH [Automated message] TROPONIN I (test code The sy stem which = [id number]) generated this result transmitted ref erence range: <=35. Th e reference range was not used to int erpret this result as normal/abnormal . 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 - KJ LThe SWITCH CREW SUPERVISOR STAT High Sensitivity Troponin-I results should be used in conjunction with other diagnostic information such as ECG, clinical observations and information, and patient symptoms to aid in the diagnosis of DE.TSH/FREE T4 IF [id number] 03:53:00 Test Item Value Reference Range Interpretation Comments THYROID STIMULATING HORMONE 1.684 uIU/mL 0.350-4.940 (SEAN) (test code = 772) 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 - KJ LHIGH SENSITIVITY TROPONIN [id number] 03:48:00 Test Item Value Reference Range Interpretation Comments HIGH SENSITIVITY 2866 pg/ml See_Comment HH [Automated message] TROPONIN I (test code The sy stem which = [id number]) generated this result transmitted ref erence range: <=35. Th e reference range was not used to int erpret this result as normal/abnormal . 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 - KJ LThe SWITCH CREW SUPERVISOR STAT High Sensitivity Troponin-I results should be used in conjunction with other diagnostic information such as ECG, clinical observations and information, and patient symptoms to aid in the diagnosis of DE.BASIC METABOLIC [id number] 03:36:00 Test Item Value Reference Range Interpretation Comments SODIUM (BEAKER) 137 meq/L 136-145 (test code = 381) POTASSIUM (BEAKER) 3.9 meq/L 3.5-5.1 (test code = 379) CHLORIDE (BEAKER) 101 meq/L 98-107 (test code = 382) CO2 (BEAKER) (test 29 meq/L 22-29 code = 355) BLOOD UREA NITROGEN 15 mg/dL 7-21 (BEAKER) (test code = 354) CREATININE (BEAKER) 0.76 mg/dL 0.57-1.25 (test code = 358) GLUCOSE RANDOM 212 mg/dL 70-105 H (BEAKER) (test code = 652) CALCIUM (BEAKER) 8.9 mg/dL 8.4-10.2 (test code = 697) EGFR (BEAKER) (test 102 mL/min/1.73 ESTIM ATED GFR IS code = 1092) sq m NOT ACCURATE CREATININE CLEARANCE IN PREDICTING GLOMERULAR FILTRATION RATE . ESTIMATED GFR I S NOT APPLICABLE FOR DIALYSIS PATIEN TS. 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 - KJ [id number] 03:36:00 Test Item Value Reference Range Interpretation Comments MAGNESIUM (BEAKER) (test code = 1.4 mg/dL 1.6-2.6 L 627) 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 - KJ LLIPID [id number] 03:36:00 Test Item Value Reference Range Interpretation Comments TRIGLYCERIDES (BEAKER) (test code = 116 mg/dL 540) CHOLESTEROL (BEAKER) (test code = 94 mg/dL 631) HDL CHOLESTEROL (BEAKER) (test code 23 mg/dL = 976) LDL CHOLESTEROL CALCULATED (BEAKER) 48 mg/dL (test code = 633) Triglyceride Reference Range: Low Risk <150 Borderline 150-199 High Risk 200-499 Very High Risk >=500Cholesterol Reference Range: Low Risk <200 Borderline 200-239 High Risk >240HDL Cholesterol Reference Range: Low Risk >=60 High Risk <40LDL Cholesterol Reference Range: Optimal <100 Near Optimal 100-129 Borderline 130-159 High 160-189 Very High >=190 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 - PIAYALPROTHROMBIN TIME/[id number] 03:21:00 Test Item Value Reference Range Interpretation Comments PROTIME (BEAKER) 16.5 seconds 11.9-14.2 H (test code = 759) INR (BEAKER) (test 1.35 See_Comment [Automat ed message] code = 370) The system avocadostore generated this result transmitted ref erence range: <=5.90. The reference range was not used to int erpret this result as normal/abnormal . RECOMMENDED COUMADIN/WARFARIN INR THERAPY RANGESSTANDARD DOSE: 2.0 - 3.0 Includes: PROPHYLAXIS forvenous thrombosis, systemic embolization; TREATMENT for venous thrombosis and/or pulmonary embolus.HIGH RISK: Target INR is 2.5-3.5 for patients with mechanical heart valves.CBC W/PLT COUNT & AUTO DIFFERENTIAL 2021-04-08 03:14:00 Test Item Value Reference Range Interpretation Comments WHITE BLOOD CELL COUNT (BEAKER) 2.2 K/ L 3.5-10.5 L (test code = 775) RED BLOOD CELL COUNT (BEAKER) 4.13 M/ L 4.63-6.08 L (test code = 761) HEMOGLOBIN (BEAKER) (test code = 10.7 GM/DL 13.7-17.5 L 410) HEMATOCRIT (BEAKER) (test code = 34.4 % 40.1-51.0 L 411) MEAN CORPUSCULAR VOLUME (BEAKER) 83.3 fL 79.0-92.2 (test code = 753) MEAN CORPUSCULAR HEMOGLOBIN 25.9 pg 25.7-32.2 (BEAKER) (test code = 751) MEAN CORPUSCULAR HEMOGLOBIN CONC 31.1 GM/DL 32.3-36.5 L (BEAKER) (test code = 752) RED CELL DISTRIBUTION WIDTH 16.6 % 11.6-14.4 H (BEAKER) (test code = 412) PLATELET COUNT (BEAKER) (test 111 K/CU MM 150-450 L code = 756) MEAN PLATELET VOLUME (BEAKER) 11.0 fL 9.4-12.4 (test code = 754) NUCLEATED RED BLOOD CELLS 0 /100 WBC 0-0 (BEAKER) (test code = 413) NEUTROPHILS RELATIVE PERCENT 51 % (BEAKER) (test code = 429) LYMPHOCYTES RELATIVE PERCENT 27 % (BEAKER) (test code = 430) MONOCYTES RELATIVE PERCENT 14 % (BEAKER) (test code = 431) EOSINOPHILS RELATIVE PERCENT 7 % (BEAKER) (test code = 432) BASOPHILS RELATIVE PERCENT 1 % (BEAKER) (test code = 437) NEUTROPHILS ABSOLUTE COUNT 1.09 K/ L 1.78-5.38 L (BEAKER) (test code = 670) LYMPHOCYTES ABSOLUTE COUNT 0.59 K/ L 1.32-3.57 L (BEAKER) (test code = 414) MONOCYTES ABSOLUTE COUNT (BEAKER) 0.30 K/ L 0.30-0.82 (test code = 415) EOSINOPHILS ABSOLUTE COUNT 0.15 K/ L 0.04-0.54 (BEAKER) (test code = 416) BASOPHILS ABSOLUTE COUNT (BEAKER) 0.02 K/ L 0.01-0.08 (test code = 417) IMMATURE GRANULOCYTES-RELATIVE 1 % 0-1 PERCENT (BEAKER) (test code = 2801) HIGH SENSITIVITY TROPONIN [id number] 21:03:00 Test Item Value Reference Range Interpretation Comments HIGH SENSITIVITY 2959 pg/ml See_Comment HH [Automated message] TROPONIN I (test code The [facility] which = [id number]) generated this result transmitted ref erence range: <=35. Th e reference range was not used to int erpret this result as normal/abnormal . 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 - DBThe SWITCH CREW SUPERVISOR STAT High Sensitivity Troponin-I results should be used in conjunctionwith other diagnostic information such as ECG, clinical observations and information, and patient symptoms to aid in the diagnosis of DE.CBC (HEMOGRAM ONLY)2021-04-07 20:37:00 Test Item Value Reference Range Interpretation Comments WHITE BLOOD CELL COUNT (BEAKER) 2.7 K/ L 3.5-10.5 L (test code = 775) RED BLOOD CELL COUNT (BEAKER) 4.65 M/ L 4.63-6.08 (test code = 761) HEMOGLOBIN (BEAKER) (test code = 12.1 GM/DL 13.7-17.5 L 410) HEMATOCRIT (BEAKER) (test code = 39.0 % 40.1-51.0 L 411) MEAN CORPUSCULAR VOLUME (BEAKER) 83.9 fL 79.0-92.2 (test code = 753) MEAN CORPUSCULAR HEMOGLOBIN 26.0 pg 25.7-32.2 (BEAKER) (test code = 751) MEAN CORPUSCULAR HEMOGLOBIN CONC 31.0 GM/DL 32.3-36.5 L (BEAKER) (test code = 752) RED CELL DISTRIBUTION WIDTH 16.6 % 11.6-14.4 H (BEAKER) (test code = 412) PLATELET COUNT (BEAKER) (test 127 K/CU MM 150-450 L code = 756) MEAN PLATELET VOLUME (BEAKER) 11.1 fL 9.4-12.4 (test code = 754) NUCLEATED RED BLOOD CELLS 0 /100 WBC 0-0 (BEAKER) (test code = 413) POCT-GLUCOSE [id number] 20:19:00 Test Item Value Reference Range Interpretation Comments POC-GLUCOSE METER 180 mg/dL 70-110 H : TESTED A [facility] [id number] (BEAKER) (test code = [place], 1538) [id number]: Truck Driver Teamster/Techni bradford ID = [id number] for JACLYN NDIAYEMORENO COMPREHENSIVE METABOLIC [id number] 19:12:00 Test Item Value Reference Range Interpretation Comments TOTAL PROTEIN 7.7 gm/dL 6.0-8.3 (BEAKER) (test code = 770) ALBUMIN (BEAKER) 3.2 g/dL 3.5-5.0 L (test code = 1145) ALKALINE PHOSPHATASE 82 U/L 40-150 (BEAKER) (test code = 346) BILIRUBIN TOTAL 1.1 mg/dL 0.2-1.2 (BEAKER) (test code = 377) SODIUM (BEAKER) (test 132 meq/L 136-145 L code = 381) POTASSIUM (BEAKER) 4.7 meq/L 3.5-5.1 (test code = 379) CHLORIDE (BEAKER) 98 meq/L 98-107 (test code = 382) CO2 (BEAKER) (test 21 meq/L 22-29 L code = 355) BLOOD UREA NITROGEN 17 mg/dL 7-21 (BEAKER) (test code = 354) CREATININE (BEAKER) 0.95 mg/dL 0.57-1.25 (test code = 358) GLUCOSE RANDOM 312 mg/dL 70-105 H (BEAKER) (test code = 652) CALCIUM (BEAKER) 9.9 mg/dL 8.4-10.2 (test code = 697) AST (SGOT) (BEAKER) 23 U/L 5-34 (test code = 353) ALT (SGPT) (BEAKER) 9 U/L 6-55 (test code = 347) EGFR (BEAKER) (test 79 mL/min/1.73 ESTIMA CHILANGO GFR IS code = 1092) sq m NOT ACCURATE CREATININE CLEARANCE IN PREDICTING GLOMERULAR FILTRATION RATE . ESTIMATED GFR I S NOT APPLICABLE FOR DIALYSIS PATIEN TS. 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 - DBCT, CHEST WITH IV CONTRAST- PE TEST [id number] 17:35:00 Referring: Dr. Oneil Unlisted Reason for Exam - Click Yes and Enter Reason Below->NoMAGUE [facility] : 1950 Sex: MFINAL REPORT CT Chest PE Protocol dated Clinical information: Unli sheilad Reason for ExamRUQ Abdominal pain post op Technique: This exam was performed according to our departmental dose-optimization program, which includes automated exposure control, adjustment of the mA and/or kV according to patient size and/or use of interactive reconstruction technique. Precontrast axial images were obtained at pulmonary trunk level for the purpose of monitoring subsequent IV contrast. Postcontrast axial images of the chest were obtained from above the arch level to the lower chest at maximum enhancement of pulmonary artery. Delayed axial images of the entire chest were obtained subsequently. Coronal and sagittal reformations of the pulmonary arteries were performed. Comment: Heart is normal in size. Greater vessels are unremarkable. No filling detect is noted in the pulmonary trunk or pulmonary arteries. No adenopathy is noted in the mediastinum or perihilar region. Tracheaand mainstem bronchi are patent. Subsegmental atelectasis is seen in the lingula and both lung bases. A 5 mm nodule is seen in the left lower lobe. The rest of the lungs are clear. No nodular, mass lesion or airspace is present. No pleural effusion or pleural base mass is seen. Impression:1. No pulmonary thromboembolism.2. Left lower nodule.3. Subsegmental atelectasis in the lingula and both lower lobes. ABDOMINAL AND PELVIS CT DATED 04/07/2021 CLINICAL INFORMATION: Unlisted Reason for ExamRUQ Abdominal pain post op TECHNIQUE: Axial images of the abdomen and pelvis were obtained from diaphragm tothe pubic symphysis with intravenous contrast. This exam was performed according to our departmental dose- optimization program, which includes automated exposure control, adjustment of the mA and/or kV according to patient size and/or use of interactive reconstruction technique. COMMENT: Liver is cirrhotic in appearance with irregular margins. No suspicious mass is seen in the liver. Spleen is enlarged measuring approximately 18 x 7.4 x 17.5 cm. The splenic, superior mesenteric, portal, and hepaticveins are patent. Main portal vein measures 1.7 cm in size. Enlarged collateral veins are seen in the splenic hilum. There is splenorenal shunt and paraesophageal varices. Gallbladder is not well seen. Hyperdense foci are seen in the gallbladder fossa may represent gallstones in the contracted gallbladder. No biliary dilatation is noted. Pancreas and adrenals are unremarkable. Both kidneys are normal in size and functioning. No hydronephrosis, hydroureter, urolithiasis is seen. Diverticular disease is seen in the large bowel without diverticulitis. The small bowel and appendix are normal in caliber. There is persistent inflammation in the right upper quadrant abdomen adjacent to to the hepaticflexure. A tiny air-fluid collection is seen in the region of the gallbladder fossa measuring approximately 8 mm in size. A 0.6 x 2.6 cm loculated fluid collection is seen adjacently. Previously noted p ercutaneous drainage catheter in the right upper quadrant abdomen has been removed. IMPRESSION: 1.Cirrhosis with splenomegaly, portal hypertension, splenorenal shunt and paraesophageal varices.2. Persistent inflammation in the right upper quadrant abdomen adjacent to the hepatic flexure with tiny residual abscess in the region of the gallbladder fossa.3. Diverticulosis without diverticulitis. Signed: Anuel Casper MDReport Verified Date/Time: 04/07/2021 17:35:20 Reading Location: [facility] B1 C013Y CT Body Reading Room CT, [id number] 17:35:00Referring: Dr. Oneil Unlisted Reason for Exam - Click Yes and Enter Reason Below->YesUnlisted Reason for Exam->RUQ Abdominal pain post opWill this procedure require oral contrast?->No [facility] : 1950 Sex: MFINAL REPORT CT Chest PE Protocol dated Clinical information: Unli sted Reason for ExamRUQ Abdominal pain post op Technique: This exam was performed according to our departmental dose-optimization program, which includes automated exposure control, adjustment of the mA and/or kV according to patient size and/or use of interactive reconstruction technique. Precontrast axial images were obtained at pulmonary trunk level for the purpose of monitoring subsequent IV contrast. Postcontrast axial images of the chest were obtained from above the arch level to the lower chest at maximum enhancement of pulmonary artery. Delayed axial images of the entire chest were obtained subsequently. Coronal and sagittal reformations of the pulmonary arteries were performed. Comment: Heart is normal in size. Greater vessels are unremarkable. No filling detect is noted in the pulmonary trunk or pulmonary arteries. No adenopathy is noted in the mediastinum or perihilar region. Tracheaand mainstem bronchi are patent. Subsegmental atelectasis is seen in the lingula and both lung bases. A 5 mm nodule is seen in the left lower lobe. The rest of the lungs are clear. No nodular, mass lesion or airspace is present. No pleural effusion or pleural base mass is seen. Impression:1. No pulmonary thromboembolism.2. Left lower nodule.3. Subsegmental atelectasis in the lingula and both lower lobes. ABDOMINAL AND PELVIS CT DATED 04/07/2021 CLINICAL INFORMATION: Unlisted Reason for ExamRUQ Abdominal pain post op TECHNIQUE: Axial images of the abdomen and pelvis were obtained from diaphragm tothe pubic symphysis with intravenous contrast. This exam was performed according to our departmental dose- optimization program, which includes automated exposure control, adjustment of the mA and/or kV according to patient size and/or use of interactive reconstruction technique. COMMENT: Liver is cirrhotic in appearance with irregular margins. No suspicious mass is seen in the liver. Spleen is enlarged measuring approximately 18 x 7.4 x 17.5 cm. The splenic, superior mesenteric, portal, and hepaticveins are patent. Main portal vein measures 1.7 cm in size. Enlarged collateral veins are seen in the splenic hilum. There is splenorenal shunt and paraesophageal varices. Gallbladder is not well seen. Hyperdense foci are seen in the gallbladder fossa may represent gallstones in the contracted gallbladder. No biliary dilatation is noted. Pancreas and adrenals are unremarkable. Both kidneys are normal in size and functioning. No hydronephrosis, hydroureter, urolithiasis is seen. Diverticular disease is seen in the large bowel without diverticulitis. The small bowel and appendix are normal in caliber. There is persistent inflammation in the right upper quadrant abdomen adjacent to to the hepaticflexure. A tiny air-fluid collection is seen in the region of the gallbladder fossa measuring approximately 8 mm in size. A 0.6 x 2.6 cm loculated fluid collection is seen adjacently. Previously noted p ercutaneous drainage catheter in the right upper quadrant abdomen has been removed. IMPRESSION: 1.Cirrhosis with splenomegaly, portal hypertension, splenorenal shunt and paraesophageal varices.2. Persistent inflammation in the right upper quadrant abdomen adjacent to the hepatic flexure with tiny residual abscess in the region of the gallbladder fossa.3. Diverticulosis without diverticulitis. Signed: Anuel Casper Verified Date/Time: 04/07/2021 17:35:20 Reading Location: [facility] B1 C013Y CT Body Reading Room SARS-COV2/RT-PCR ([facility])2021-04-07 16:04:00 Test Item Value Reference Range Interpretation Comments SARS-COV2/RT-PCR Negative Negative The SARS-Co V-2 target (test code = 0893504) nuclei c acids are not detected in thi s specimen. The presence of SARS-CoV-2/FLU/RSV viral nucleic acids cannot rule out co- infections or disease caused by other viral or bacterial pathogens. As with any molecular test, mutations within the target regions of the Xpert Xpress SARS-CoV-2/Flu/RSV test could affect primer and/or probe binding resulting in failure to detect the presence of virus or the virus being detected less predictably. False negative results may occur if the virus is present at levels below the analytical limit of detection in this specimen.This Xpert Xpress SARS-CoV-2/Flu/RSV test is a rapid, real-time RT-PCR test intended for the qualitative detection of nucleic acid from Xpert Xpress SARS-CoV-2/Flu/RSV in a nasopharyngeal swab specimen collected from individuals suspected of Xpert Xpress SARS-CoV-2/Flu/RSV by their healthcare provider. Results from [facility] Xpert Xpress SARS-CoV-2/Flu/RSV test should be correlated with the clinical history, epidemiological data, and other data available to the clinician evaluating the patient. Viral nucleic acid may persist in vivo, independent of virus viability. Detection of analyte target(s) does not imply that the corresponding virus(es) are infectious or are the causative agents for clinical symptoms.This test has not been Food and Drug Administration (FDA) cleared or approved and has been authorized by FDA under an Emergency Use Authorization (EUA). This EUA will be effective until the declaration that circumstances exist justifying the authorization of the emergency use of in vitro diagnostic tests for detection and/or diagnosis of COVID-19 is terminated under Section 564(b)(2) of the Act or the EUA is revoked under Section 564(g) of the Act.Fact Sheet for Healthcare Providers :https://www.[employer]/Documents/Xpert%20Xpress%20SARS%20CoV-2/Fact%20Sheets/3 02-3902%70QVBR-UBV-7%20HEALTHCARE%20PROVIDERS%20FACT%20SHEET.pdfFact Sheet for Healthcare Patients:https://www.[employer] /Documents/Xpert%20Xpress%20SARS%20Cov-2/Fact%20Sheets/302-3801%11PCPF-TTO-6%20P ATIENT%20FACT%20SHEET.pdf2D Echo W/Doppler(CW/PW/Color)2021-04-07 15:50:42 Ejection FractionSLE ECHO HEARTLAB MKCKESSON [facility] HIGH SENSITIVITY TROPONIN [id number] 15:33:00 Test Item Value Reference Range Interpretation Comments HIGH SENSITIVITY 2955 pg/ml See_Comment HH [Automated message] TROPONIN I (test code The stem which = [id number]) generated this result transmitted ref erence range: <=35. Th e reference range was not used to int erpret this result as normal/abnormal . 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 - DBThe SWITCH CREW SUPERVISOR STAT High Sensitivity Troponin-I results should be used in conjunctionwith other diagnostic information such as ECG, clinical observations and information, and patient symptoms to aid in the diagnosis of DE.B-TYPE NATRIURETIC FACTOR (BNP)2021-04-07 15:23:00 Test Item Value Reference Range Interpretation Comments B-TYPE NATRIURETIC PEPTIDE (BEAKER) 18 pg/mL 0-100 (test code = 700) 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 - DBBASIC METABOLIC [id number] 15:17:00 Test Item Value Reference Range Interpretation Comments SODIUM (BEAKER) 134 meq/L 136-145 L (test code = 381) POTASSIUM (BEAKER) 4.8 meq/L 3.5-5.1 (test code = 379) CHLORIDE (BEAKER) 99 meq/L 98-107 (test code = 382) CO2 (BEAKER) (test 26 meq/L 22-29 code = 355) BLOOD UREA NITROGEN 16 mg/dL 7-21 (BEAKER) (test code = 354) CREATININE (BEAKER) 0.88 mg/dL 0.57-1.25 (test code = 358) GLUCOSE RANDOM 307 mg/dL 70-105 H (BEAKER) (test code = 652) CALCIUM (BEAKER) 9.9 mg/dL 8.4-10.2 (test code = 697) EGFR (BEAKER) (test 86 mL/min/1.73 ESTIMA CHILANGO GFR IS code = 1092) sq m NOT ACCURATE CREATININE CLEARANCE IN PREDICTING GLOMERULAR FILTRATION RATE . ESTIMATED GFR I S NOT APPLICABLE FOR DIALYSIS PATIEN TS. 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 - [id number] 15:17:00 Test Item Value Reference Range Interpretation Comments LIPASE (SEAN) (test code = 749) 26 U/L 8-78 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 - [id number] 15:09:00 Test Item Value Reference Range Interpretation Comments D-DIMER QUANTITATIVE (ARTURAKER) 1.15 MG/L FEU <0.50 H (test code = 671) Intended Use: The D-Dimer Assay can be used to aid in the diagnosis of Deep Vein Thrombosis (DVT) and Pulmonary Embolism Disease (PED).In patients with low pre- test probability, various studies concerning STA Liatest D-dimer test have reported that with a cutoff value of 0.50 MG/L FEU, the Negative Predictive Value (NPV) regarding the exclusion of thrombosis is within 95-100% range. PT/[id number] 15:07:00 Test Item Value Reference Interpretation Comments Range Protime (test code = 15.2 See_Comment H [Autom ated 8532-2) message] The system which generated this result transmitted reference range : 11.9 - 14.2 seconds. The reference range was not used to interpret this result as normal/abnormal . INR (test code = 1.22 See_Comment [Automated 7841-6) message] The system which generated this result transmitted reference range : <=5.90. The reference range was not used to interpret this result as normal/abnormal . PTT (test code = 27.0 See_Comment [Automated 65000-6) message] The system which generated this result transmitted reference range : 22.5 - 36.0 seconds. The reference range was not used to interpret this result as normal/abnormal . SRAVANTHI (test code = RECOMMENDED SRAVANTHI) COUMADIN/WARFARIN INR THERAPY RANGESSTANDARD DOSE: 2.0 - 3.0 Includes: PROPHYLAXIS for venous thrombosis, systemic embolization; TREATMENT for venous thrombosis and/or pulmonary embolus.HIGH RISK: Target INR is 2.5-3.5 for patients with mechanical heart valves. Lab Interpretation Abnormal (test code = 28472-3) [id number] 15:07:00 Test Item Value Reference Range Interpretation Comments PROTIME (BEAKER) (test 15.2 seconds 11.9-14.2 H code = 759) INR (BEAKER) (test 1.22 See_Comment [Automat ed code = 370) message] The sy stem which generated this result transmitted reference range : <=5.90. The reference range was not used to interpret this result as normal/abnormal . PARTIAL THROMBOPLASTIN 27.0 seconds 22.5-36.0 TIME (BEAKER) (test code = 760) RECOMMENDED COUMADIN/WARFARIN INR THERAPY RANGESSTANDARD DOSE: 2.0 - 3.0 Includes: PROPHYLAXIS forvenous thrombosis, systemic embolization; TREATMENT for venous thrombosis and/or pulmonary embolus.HIGH RISK: Target INR is 2.5-3.5 for patients with mechanical heart valves.CBC W/PLT COUNT & AUTO DIFFERENTIAL 2021-04-07 14:58:00 Test Item Value Reference Range Interpretation Comments WHITE BLOOD CELL COUNT (BEAKER) 3.0 K/ L 3.5-10.5 L (test code = 775) RED BLOOD CELL COUNT (BEAKER) 4.89 M/ L 4.63-6.08 (test code = 761) HEMOGLOBIN (BEAKER) (test code = 12.6 GM/DL 13.7-17.5 L 410) HEMATOCRIT (BEAKER) (test code = 42.1 % 40.1-51.0 411) MEAN CORPUSCULAR VOLUME (BEAKER) 86.1 fL 79.0-92.2 (test code = 753) MEAN CORPUSCULAR HEMOGLOBIN 25.8 pg 25.7-32.2 (BEAKER) (test code = 751) MEAN CORPUSCULAR HEMOGLOBIN CONC 29.9 GM/DL 32.3-36.5 L (BEAKER) (test code = 752) RED CELL DISTRIBUTION WIDTH 16.6 % 11.6-14.4 H (BEAKER) (test code = 412) PLATELET COUNT (BEAKER) (test 110 K/CU MM 150-450 L code = 756) MEAN PLATELET VOLUME (BEAKER) 9.9 fL 9.4-12.4 (test code = 754) NUCLEATED RED BLOOD CELLS 0 /100 WBC 0-0 (BEAKER) (test code = 413) NEUTROPHILS RELATIVE PERCENT 64 % (BEAKER) (test code = 429) LYMPHOCYTES RELATIVE PERCENT 18 % (BEAKER) (test code = 430) MONOCYTES RELATIVE PERCENT 12 % (BEAKER) (test code = 431) EOSINOPHILS RELATIVE PERCENT 5 % (BEAKER) (test code = 432) BASOPHILS RELATIVE PERCENT 1 % (BEAKER) (test code = 437) NEUTROPHILS ABSOLUTE COUNT 1.94 K/ L 1.78-5.38 (BEAKER) (test code = 670) LYMPHOCYTES ABSOLUTE COUNT 0.54 K/ L 1.32-3.57 L (BEAKER) (test code = 414) MONOCYTES ABSOLUTE COUNT (BEAKER) 0.35 K/ L 0.30-0.82 (test code = 415) EOSINOPHILS ABSOLUTE COUNT 0.16 K/ L 0.04-0.54 (BEAKER) (test code = 416) BASOPHILS ABSOLUTE COUNT (BEAKER) 0.03 K/ L 0.01-0.08 (test code = 417) IMMATURE GRANULOCYTES-RELATIVE 0 % 0-1 PERCENT (BEAKER) (test code = 2801) RAD, CHEST, 1 VIEW, NON [id number] 12:11:00Referring: Dr. Oneil Reason for exam:->CHEST PAINReason for exam:->WOUND CHECKShould this be performed at the bedside?->Yes [facility] : 1950 Sex: MFINAL REPORT INDICATION: CHEST PAINWOUND CHECK COMPARISON: None DANELLE HNIQUE: Single frontal view of the chest. FINDINGS: Lungs and pleura: Clear lungs. No effusion.Heartand mediastinum: Normal heart size. Unremarkable mediastinal contours.Osseous structures: No acute abnormality.Other: None. IMPRESSION: No acute intrathoracic abnormality. Signed: Ginette Pardo MDReport Verified Date/Time: 04/07/2021 12:11:53 Reading Location: [facility] Radiology Reading Room Body fluid [id number] 15:26:00Scan ResultQUEST NON- INTERFACED LABSee scanned reportCHI Kern ValleyGAMMA GLUTAMYL TRANSFERASE (GGT)2021-03-28 18:39:00 Test Item Value Reference Range Interpretation Comments GAMMA GLUTAMYL TRANSFERASE (BEAKER) 27 U/L 9-64 (test code = 364) 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 - CAROLINA FOperator ID - DBBASIC METABOLIC [id number] 13:51:00 Test Item Value Reference Range Interpretation Comments SODIUM (BEAKER) 138 meq/L 136-145 (test code = 381) POTASSIUM (BEAKER) 4.7 meq/L 3.5-5.1 (test code = 379) CHLORIDE (BEAKER) 103 meq/L 98-107 (test code = 382) CO2 (BEAKER) (test 26 meq/L 22-29 code = 355) BLOOD UREA NITROGEN 12 mg/dL 7-21 (BEAKER) (test code = 354) CREATININE (BEAKER) 0.86 mg/dL 0.57-1.25 (test code = 358) GLUCOSE RANDOM 189 mg/dL 70-105 H (BEAKER) (test code = 652) CALCIUM (BEAKER) 9.4 mg/dL 8.4-10.2 (test code = 697) EGFR (BEAKER) (test 88 mL/min/1.73 ESTIMA CHILANGO GFR IS code = 1092) sq m NOT ACCURATE CREATININE CLEARANCE IN PREDICTING GLOMERULAR FILTRATION RATE . ESTIMATED GFR I S NOT APPLICABLE FOR DIALYSIS PATIEN TS. 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 - JODIE [id number] 13:51:00 Test Item Value Reference Range Interpretation Comments MAGNESIUM (BEAKER) (test code = 1.4 mg/dL 1.6-2.6 L 627) 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 - JODIE [id number] 13:51:00 Test Item Value Reference Range Interpretation Comments PHOSPHORUS (BEAKER) (test code = 2.3 mg/dL 2.3-4.7 604) 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 - JODIE FHEPATIC FUNCTION [id number] 13:51:00 Test Item Value Reference Range Interpretation Comments TOTAL PROTEIN (BEAKER) (test code = 7.2 gm/dL 6.0-8.3 770) ALBUMIN (BEAKER) (test code = 1145) 3.0 g/dL 3.5-5.0 L BILIRUBIN TOTAL (BEAKER) (test code 0.9 mg/dL 0.2-1.2 = 377) BILIRUBIN DIRECT (BEAKER) (test 0.6 mg/dL 0.1-0.5 H code = 706) ALKALINE PHOSPHATASE (BEAKER) (test 71 U/L 40-150 code = 346) AST (SGOT) (BEAKER) (test code = 29 U/L 5-34 353) ALT (SGPT) (BEAKER) (test code = 11 U/L 6-55 347) 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 Boo FELICIANO FPROTHROMBIN TIME/[id number] 13:35:00 Test Item Value Reference Range Interpretation Comments PROTIME (BEAKER) 16.4 seconds 11.9-14.2 H (test code = 759) INR (BEAKER) (test 1.34 See_Comment [Automat ed message] code = 370) The system avocadostore generated this result transmitted ref erence range: <=5.90. The reference range was not used to int erpret this result as normal/abnormal . RECOMMENDED COUMADIN/WARFARIN INR THERAPY RANGESSTANDARD DOSE: 2.0 - 3.0 Includes: PROPHYLAXIS forvenous thrombosis, systemic embolization; TREATMENT for venous thrombosis and/or pulmonary embolus.HIGH RISK: Target INR is 2.5-3.5 for patients with mechanical heart valves.CBC W/PLT COUNT & AUTO DIFFERENTIAL 2021-03-28 13:27:00 Test Item Value Reference Range Interpretation Comments WHITE BLOOD CELL COUNT (BEAKER) 4.0 K/ L 3.5-10.5 (test code = 775) RED BLOOD CELL COUNT (BEAKER) 4.71 M/ L 4.63-6.08 (test code = 761) HEMOGLOBIN (BEAKER) (test code = 12.7 GM/DL 13.7-17.5 L 410) HEMATOCRIT (BEAKER) (test code = 40.3 % 40.1-51.0 411) MEAN CORPUSCULAR VOLUME (BEAKER) 85.6 fL 79.0-92.2 (test code = 753) MEAN CORPUSCULAR HEMOGLOBIN 27.0 pg 25.7-32.2 (BEAKER) (test code = 751) MEAN CORPUSCULAR HEMOGLOBIN CONC 31.5 GM/DL 32.3-36.5 L (BEAKER) (test code = 752) RED CELL DISTRIBUTION WIDTH 17.2 % 11.6-14.4 H (BEAKER) (test code = 412) PLATELET COUNT (BEAKER) (test 142 K/CU MM 150-450 L code = 756) MEAN PLATELET VOLUME (BEAKER) 11.0 fL 9.4-12.4 (test code = 754) NUCLEATED RED BLOOD CELLS 0 /100 WBC 0-0 (BEAKER) (test code = 413) NEUTROPHILS RELATIVE PERCENT 66 % (BEAKER) (test code = 429) LYMPHOCYTES RELATIVE PERCENT 18 % (BEAKER) (test code = 430) MONOCYTES RELATIVE PERCENT 10 % (BEAKER) (test code = 431) EOSINOPHILS RELATIVE PERCENT 5 % (BEAKER) (test code = 432) BASOPHILS RELATIVE PERCENT 1 % (BEAKER) (test code = 437) NEUTROPHILS ABSOLUTE COUNT 2.66 K/ L 1.78-5.38 (BEAKER) (test code = 670) LYMPHOCYTES ABSOLUTE COUNT 0.73 K/ L 1.32-3.57 L (BEAKER) (test code = 414) MONOCYTES ABSOLUTE COUNT (BEAKER) 0.41 K/ L 0.30-0.82 (test code = 415) EOSINOPHILS ABSOLUTE COUNT 0.19 K/ L 0.04-0.54 (BEAKER) (test code = 416) BASOPHILS ABSOLUTE COUNT (BEAKER) 0.02 K/ L 0.01-0.08 (test code = 417) IMMATURE GRANULOCYTES-RELATIVE 1 % 0-1 PERCENT (BEAKER) (test code = 2801) Anaerobic [id number] 07:43:00 Test Item Value Reference Range Interpretation Comments Result (test code = <1+ Prevotella A 6463-4) [facility] Interpretation Abnormal (test code = 93255-3) [facility]ER[facility] [id number] 07:43:00 Test Item Value Reference Range Interpretation Comments CULTURE (BEAKER) A <1+ Prevote lla (test code = 1095) melaninog enica POCT-GLUCOSE [id number] 11:20:00 Test Item Value Reference Range Interpretation Comments POC-GLUCOSE METER 223 mg/dL 70-110 H : TESTED A T [facility] 6720 (BEAKER) (test code = WAYNEANGIE Jones [facility], 1538) [address]: Truck Driver Teamster/Techni bradford ID = [id number] for OLIVIA ROMERO Amylase Peritoneal [id number] 09:07:00 Test Item Value Reference Range Interpretation Comments AMYLASE, PERITONEAL 3 U/L See Comment FLUID (test code = 5995667) SRAVANTHI (test code = Amylase activity in SRAVANTHI) peritoneal fluids of non-pancreatic origin is often less than or equal to the amylase activity in blood, whereas elevated amylase activity has been reported in fluid of pancreatic origin (five-folds or higher compared to contemporaneously collected blood specimen).This test has been modified from the primary therapist's instructions and its performance characteristics were determined by [facility]. The laboratory is regulated under CLIA as qualified to perform high-complexity testing. This test has not been cleared or approved by the U.S. Food and Drug Administration. The reference intervals and other method performance specifications are unavailable for amylase in peritoneal fluid. Comparison of this result with the blood amylase is recommended. 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 - JACOB [facility] CenterAMYLASE PERITONEAL [id number] 09:07:00 Test Item Value Reference Range Interpretation Comments AMYLASE, PERITONEAL FLUID (test code = 3 U/L See Comment 1209160) Amylase activity in peritoneal fluids of non-pancreatic origin is often less than or equal to the amylase activity in blood, whereas elevated amylase activity has been reported in fluid of pancreatic origin (five-folds or higher compared to contemporaneously collected blood specimen).This test has been modified from the primary therapist's instructions and its performance characteristics were determined by [facility]. The laboratory is regulated under CLIA as qualified to perform high-complexity testing. This test has not been cleared or approved by the U.S. Food and Drug Administration. The reference intervals and other method performance specifications are unavailable for amylase in peritoneal fluid. Comparison of this result with the blood amylase is recommended.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 - JERICHOIANGPOCT- GLUCOSE [id number] 07:48:00 Test Item Value Reference Range Interpretation Comments POC-GLUCOSE METER 137 mg/dL 70-110 H : TESTED A T [facility] 6720 (BEAKER) (test code = [place]NA[place], 1538) [address]: Truck Driver Teamster/Techni bradford ID = [id number] for OLIVIA ROMERO BASIC METABOLIC [id number] 05:15:00 Test Item Value Reference Range Interpretation Comments SODIUM (BEAKER) 138 meq/L 136-145 (test code = 381) POTASSIUM (BEAKER) 3.7 meq/L 3.5-5.1 (test code = 379) CHLORIDE (BEAKER) 100 meq/L 98-107 (test code = 382) CO2 (BEAKER) (test 28 meq/L 22-29 code = 355) BLOOD UREA NITROGEN 11 mg/dL 7-21 (BEAKER) (test code = 354) CREATININE (BEAKER) 0.67 mg/dL 0.57-1.25 (test code = 358) GLUCOSE RANDOM 140 mg/dL 70-105 H (BEAKER) (test code = 652) CALCIUM (BEAKER) 9.1 mg/dL 8.4-10.2 (test code = 697) EGFR (BEAKER) (test 118 mL/min/1.73 ESTIM ATED GFR IS code = 1092) sq m NOT ACCURATE CREATININE CLEARANCE IN PREDICTING GLOMERULAR FILTRATION RATE . ESTIMATED GFR I S NOT APPLICABLE FOR DIALYSIS PATIEN TS. 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 - KELSIE [id number] 05:15:00 Test Item Value Reference Range Interpretation Comments MAGNESIUM (BEAKER) (test code = 1.2 mg/dL 1.6-2.6 L 627) 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 - KELSIE [id number] 05:15:00 Test Item Value Reference Range Interpretation Comments PHOSPHORUS (BEAKER) (test code = 2.6 mg/dL 2.3-4.7 604) 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 - KELSIE MHEPATIC FUNCTION [id number] 05:15:00 Test Item Value Reference Range Interpretation Comments TOTAL PROTEIN (BEAKER) (test code = 6.0 gm/dL 6.0-8.3 770) ALBUMIN (BEAKER) (test code = 1145) 2.6 g/dL 3.5-5.0 L BILIRUBIN TOTAL (BEAKER) (test code 0.9 mg/dL 0.2-1.2 = 377) BILIRUBIN DIRECT (BEAKER) (test 0.6 mg/dL 0.1-0.5 H code = 706) ALKALINE PHOSPHATASE (BEAKER) (test 68 U/L 40-150 code = 346) AST (SGOT) (BEAKER) (test code = 24 U/L 5-34 353) ALT (SGPT) (BEAKER) (test code = 12 U/L 6-55 347) 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 - KELSIE MPROTHROMBIN [id number] 04:30:00 Test Item Value Reference Range Interpretation Comments PROTIME (BEAKER) 15.1 seconds 11.9-14.2 H (test code = 759) INR (BEAKER) (test 1.21 See_Comment [Automat ed message] code = 370) The system avocadostore generated this result transmitted ref erence range: <=5.90. The reference range was not used to int erpret this result as normal/abnormal . RECOMMENDED COUMADIN/WARFARIN INR THERAPY RANGESSTANDARD DOSE: 2.0 - 3.0 Includes: PROPHYLAXIS forvenous thrombosis, systemic embolization; TREATMENT for venous thrombosis and/or pulmonary embolus.HIGH RISK: Target INR is 2.5-3.5 for patients with mechanical heart valves.CBC W/PLT COUNT & AUTO DIFFERENTIAL 2021-03-22 04:24:00 Test Item Value Reference Range Interpretation Comments WHITE BLOOD CELL COUNT (BEAKER) 3.4 K/ L 3.5-10.5 L (test code = 775) RED BLOOD CELL COUNT (BEAKER) 4.07 M/ L 4.63-6.08 L (test code = 761) HEMOGLOBIN (BEAKER) (test code = 10.9 GM/DL 13.7-17.5 L 410) HEMATOCRIT (BEAKER) (test code = 34.1 % 40.1-51.0 L 411) MEAN CORPUSCULAR VOLUME (BEAKER) 83.8 fL 79.0-92.2 (test code = 753) MEAN CORPUSCULAR HEMOGLOBIN 26.8 pg 25.7-32.2 (BEAKER) (test code = 751) MEAN CORPUSCULAR HEMOGLOBIN CONC 32.0 GM/DL 32.3-36.5 L (BEAKER) (test code = 752) RED CELL DISTRIBUTION WIDTH 17.1 % 11.6-14.4 H (BEAKER) (test code = 412) PLATELET COUNT (BEAKER) (test 106 K/CU MM 150-450 L code = 756) MEAN PLATELET VOLUME (BEAKER) 10.3 fL 9.4-12.4 (test code = 754) NUCLEATED RED BLOOD CELLS 0 /100 WBC 0-0 (BEAKER) (test code = 413) NEUTROPHILS RELATIVE PERCENT 62 % (BEAKER) (test code = 429) LYMPHOCYTES RELATIVE PERCENT 21 % (BEAKER) (test code = 430) MONOCYTES RELATIVE PERCENT 9 % (BEAKER) (test code = 431) EOSINOPHILS RELATIVE PERCENT 7 % (BEAKER) (test code = 432) BASOPHILS RELATIVE PERCENT 1 % (BEAKER) (test code = 437) NEUTROPHILS ABSOLUTE COUNT 2.07 K/ L 1.78-5.38 (BEAKER) (test code = 670) LYMPHOCYTES ABSOLUTE COUNT 0.70 K/ L 1.32-3.57 L (BEAKER) (test code = 414) MONOCYTES ABSOLUTE COUNT (BEAKER) 0.30 K/ L 0.30-0.82 (test code = 415) EOSINOPHILS ABSOLUTE COUNT 0.23 K/ L 0.04-0.54 (BEAKER) (test code = 416) BASOPHILS ABSOLUTE COUNT (BEAKER) 0.03 K/ L 0.01-0.08 (test code = 417) IMMATURE GRANULOCYTES-RELATIVE 1 % 0-1 PERCENT (BEAKER) (test code = 2801) POCT-GLUCOSE [id number] 21:07:00 Test Item Value Reference Range Interpretation Comments POC-GLUCOSE METER 212 mg/dL 70-110 H : TESTED A T [facility] 6720 (BEAKER) (test code = [place], 1538) [address]: Truck Driver Teamster/Techni bradford ID = [id number] for PRABHU GANDHI POCT-GLUCOSE [id number] 16:49:00 Test Item Value Reference Range Interpretation Comments POC-GLUCOSE METER 153 mg/dL 70-110 H : TESTED A T [facility] 6720 (BENILA) (test code = [place], 1538) [address]: Truck Driver Teamster/Techni bradford ID = [id number] for OLIVIA ROMERO TISSUE [id number] 14:41:00Surgical Pathology Report Case: [id number] Authorizing Provider: Alice Petersen Aba, MD Collected: 03/15/2021 11:24 AM Ordering Location: [facility] Received: 03/15/2021 01:44 PM PERIOPERATIVE SERVICES Pathologist: Emily Cespedes MD Specimens: A) - Gallbladder, gallbladder wall - permanent B) -Stone, gallbladder stones A. GALLBLADDER, WALL, CHOLECYSTECTOMY: - ACUTE AND CHRONIC XANTHOGRANULOMATOUS CHOLECYSTITIS.B. GALLBLADDER STONES, GROSS EXAMINATION ONLY: - CHOLELITHS IDENTIFIED (SEE GROSS DESCRIPTION). Signing Pathologist Direct Phone Line: [phone] signed by Emily Cespedes MD on 03/21/2021 at 2:41 [id number] of gallbladder with acute cholecystitis without obstruction A. GallbladderB. StoneA. Received fresh labeled the patient's name, accession number and "gallbladder wall" is a 5.0 x 3.0 x0.5 cm partial gallbladder in aggregate. A cystic duct is not grossly appreciated. The minimal amount of identifiable serosa is kwon-pink, focally hemorrhagic and smooth to disrupted. The opposing end is kwon-brown and shaggy. Mucosa is not grossly appreciated. The wall measures up to 0.7 cm thick. Technical Sales Representatives sections are submitted in A1-A2.B. Received fresh labeled the patient's name, accession number and "gallbladder stones" is a 2.2 x 1.1 x 0.4 cm aggregate of green-yellow, multifaceted calculi. A gross photograph is taken. No sections are submitted. This part is for gross examination only.BRANDAN Cherry, HT (ASCP)Performed.[facility], Department of Pathology, [address] [place] [address], [facility], [facility], [address] [place] [address], [facility], [facility] of [facility], [address] [place] [id number], NUWJ-GLUCOSE [id number] 11:35:00 Test Item Value Reference Range Interpretation Comments POC-GLUCOSE METER 215 mg/dL 70-110 H : TESTED A T [facility] 6720 (BEAKER) (test code = HANNAH Jones [facility], 1538) [address]: Truck Driver Teamster/Techni bradford ID = [id number] for OLIVIA ROMERO DONALD OBTAINED CULTURE + GRAM [id number] 08:47:00 Test Item Value Reference Interpretation Comments Range CULTURE (BEAKER) ENTEROBACTER A 2+ Enteroba cter (test code = 1095) CLOACAE COMPLEX cloaca e complexAmpC Positive Amikacin (test code = S 1) Aztreonam (test code R = 32) Cefepime (test code = S 51) Cefoxitin (test code R = 68) Ceftazidime (test R code = 27) Ceftriaxone (test R code = 52) Ertapenem (test code S = 38) Gentamicin (test code S = 18) Levofloxacin (test S code = 22) Meropenem (test code S = 34) Nitrofurantoin (test S code = 23) Piperacillin + R Tazobactam (test code = 29) Tetracycline (test R code = 2) Tobramycin (test code S = 25) Trimethoprim + S Sulfamethoxazole (test code = 47) CULTURE (BEAKER) A 2+ Escheric hia (test code = 1095) coliNon-v iable for susceptibility CULTURE (BEAKER) ENTEROCOCCUS A 1+ Enteroco ccus (test code = 1095) FAECALIS faecalis Ampicillin (test code S = 26) Linezolid (test code S = 40) Vancomycin (test code S = 13) CULTURE (BEAKER) A 2+ Streptoc occus (test code = 1095) anginosus GRAM STAIN RESULT <1+ WBCs (BEAKER) (test code = 1123) GRAM STAIN RESULT <1+ gram positive (BEAKER) (test code = cocci in chains [id number]) POCT-GLUCOSE [id number] 07:24:00 Test Item Value Reference Range Interpretation Comments POC-GLUCOSE METER 131 mg/dL 70-110 H : TESTED A T [facility] 6720 (BEAKER) (test code = HANNAH [place], 1538) [address]: Truck Driver Teamster/Techni bradford ID = [id number] for OLIVIA ROMERO BASIC METABOLIC [id number] 05:03:00 Test Item Value Reference Range Interpretation Comments SODIUM (BEAKER) 138 meq/L 136-145 (test code = 381) POTASSIUM (BEAKER) 3.7 meq/L 3.5-5.1 (test code = 379) CHLORIDE (BEAKER) 103 meq/L 98-107 (test code = 382) CO2 (BEAKER) (test 27 meq/L 22-29 code = 355) BLOOD UREA NITROGEN 9 mg/dL 7-21 (BEAKER) (test code = 354) CREATININE (BEAKER) 0.62 mg/dL 0.57-1.25 (test code = 358) GLUCOSE RANDOM 149 mg/dL 70-105 H (BEAKER) (test code = 652) CALCIUM (BEAKER) 8.7 mg/dL 8.4-10.2 (test code = 697) EGFR (BEAKER) (test 129 mL/min/1.73 ESTIM ATED GFR IS code = 1092) sq m NOT ACCURATE CREATININE CLEARANCE IN PREDICTING GLOMERULAR FILTRATION RATE . ESTIMATED GFR I S NOT APPLICABLE FOR DIALYSIS PATIEN TS. 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 - RAKAN [id number] 05:03:00 Test Item Value Reference Range Interpretation Comments MAGNESIUM (BEAKER) (test code = 1.3 mg/dL 1.6-2.6 L 627) 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 - RAKAN [id number] 05:03:00 Test Item Value Reference Range Interpretation Comments PHOSPHORUS (BEAKER) (test code = 1.9 mg/dL 2.3-4.7 L 604) 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 - RAKAN WHEPATIC FUNCTION [id number] 05:03:00 Test Item Value Reference Range Interpretation Comments TOTAL PROTEIN (BEAKER) (test code = 5.6 gm/dL 6.0-8.3 L 770) ALBUMIN (BEAKER) (test code = 1145) 2.5 g/dL 3.5-5.0 L BILIRUBIN TOTAL (BEAKER) (test code 0.6 mg/dL 0.2-1.2 = 377) BILIRUBIN DIRECT (BEAKER) (test 0.5 mg/dL 0.1-0.5 code = 706) ALKALINE PHOSPHATASE (BEAKER) (test 66 U/L 40-150 code = 346) AST (SGOT) (BEAKER) (test code = 23 U/L 5-34 353) ALT (SGPT) (BEAKER) (test code = 11 U/L 6-55 347) 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 - RAKAN WCBC W/PLT COUNT & AUTO [id number] 04:35:00 Test Item Value Reference Range Interpretation Comments WHITE BLOOD CELL COUNT (BEAKER) 2.6 K/ L 3.5-10.5 L (test code = 775) RED BLOOD CELL COUNT (BEAKER) 3.92 M/ L 4.63-6.08 L (test code = 761) HEMOGLOBIN (BEAKER) (test code = 10.4 GM/DL 13.7-17.5 L 410) HEMATOCRIT (BEAKER) (test code = 33.4 % 40.1-51.0 L 411) MEAN CORPUSCULAR VOLUME (BEAKER) 85.2 fL 79.0-92.2 (test code = 753) MEAN CORPUSCULAR HEMOGLOBIN 26.5 pg 25.7-32.2 (BEAKER) (test code = 751) MEAN CORPUSCULAR HEMOGLOBIN CONC 31.1 GM/DL 32.3-36.5 L (BEAKER) (test code = 752) RED CELL DISTRIBUTION WIDTH 17.0 % 11.6-14.4 H (BEAKER) (test code = 412) PLATELET COUNT (BEAKER) (test code 89 K/CU MM 150-450 L = 756) MEAN PLATELET VOLUME (BEAKER) 9.4 fL 9.4-12.4 (test code = 754) NUCLEATED RED BLOOD CELLS (BEAKER) 0 /100 WBC 0-0 (test code = 413) NEUTROPHILS RELATIVE PERCENT 60 % (BEAKER) (test code = 429) LYMPHOCYTES RELATIVE PERCENT 23 % (BEAKER) (test code = 430) MONOCYTES RELATIVE PERCENT 10 % (BEAKER) (test code = 431) EOSINOPHILS RELATIVE PERCENT 6 % (BEAKER) (test code = 432) BASOPHILS RELATIVE PERCENT 1 % (BEAKER) (test code = 437) NEUTROPHILS ABSOLUTE COUNT 1.57 K/ L 1.78-5.38 L (BEAKER) (test code = 670) LYMPHOCYTES ABSOLUTE COUNT 0.59 K/ L 1.32-3.57 L (BEAKER) (test code = 414) MONOCYTES ABSOLUTE COUNT (BEAKER) 0.26 K/ L 0.30-0.82 L (test code = 415) EOSINOPHILS ABSOLUTE COUNT 0.15 K/ L 0.04-0.54 (BEAKER) (test code = 416) BASOPHILS ABSOLUTE COUNT (BEAKER) 0.02 K/ L 0.01-0.08 (test code = 417) IMMATURE GRANULOCYTES-RELATIVE 0 % 0-1 PERCENT (BEAKER) (test code = 2801) PROTHROMBIN [id number] 04:35:00 Test Item Value Reference Range Interpretation Comments PROTIME (BEAKER) 15.2 seconds 11.9-14.2 H (test code = 759) INR (BEAKER) (test 1.22 See_Comment [Automat ed message] code = 370) The system avocadostore generated this result transmitted ref erence range: <=5.90. The reference range was not used to int erpret this result as normal/abnormal . RECOMMENDED COUMADIN/WARFARIN INR THERAPY RANGESSTANDARD DOSE: 2.0 - 3.0 Includes: PROPHYLAXIS forvenous thrombosis, systemic embolization; TREATMENT for venous thrombosis and/or pulmonary embolus.HIGH RISK: Target INR is 2.5-3.5 for patients with mechanical heart valves.POCT-GLUCOSE [id number] 21:58:00 Test Item Value Reference Range Interpretation Comments POC-GLUCOSE METER 171 mg/dL 70-110 H : TESTED A T [facility] 6720 ([employer]) (test code = [place], 1538) [address]: Truck Driver Teamster/Techni bradford ID = [id number] for MADDIE GUZMAN POCT-GLUCOSE [id number] 16:30:00 Test Item Value Reference Range Interpretation Comments POC-GLUCOSE METER 173 mg/dL 70-110 H : TESTED A T [facility] 6720 ([employer]) (test code = HANNAH RODRIGUEZ, 1538) [address]: Truck Driver Teamster/Techni bradford ID = [id number] for BRAD JACKSON CT, [id number] 15:05:00Referring: Dr. Oneil Unlisted Reason for Exam - Click Yes and Enter Reason Below->No Will this procedure require oral contrast?->NoM[facility]: RALF AGNES GHOTRA : 1950 Sex: MFINAL REPORT CT of the abdomen and pelvis, with contrast Clinical History: Abdominal distension Technique: CT of the abdomen and pelvis is performed with intravenouscontrast administration. This exam was performed according to our departmental dose optimization program which includes automated exposure control, adjustment of the mA and/or kV according to patient's size and/or use of iterative reconstructive technique. Comparison Film: MRI dated January 05, 2020 Discussion: There are small bilateral pleural effusions. Mild bibasilar atelectasis or consolidation. Liver is cirrhotic. No discrete liver mass is identified. There is pneumobilia, without significant biliary ductal dilatation. Patient is status post subtotal cholecystectomy. Hyperdensity within the gallbladder fossa may reflect stones in the remnant gallbladder. Spleen is enlarged and measures 19 cm sagittally. There are prominent perisplenic varices. The pancreas, adrenal glands are normal. Kidneysdemonstrate no mass or hydronephrosis. There is a 4 mm nonobstructive stone in the left kidney, and two punctate nonobstructive stones within the right kidney. No bowel obstruction. There is colonic diverticulosis, no evidence of acute diverticulitis. Normal appendix. Focal colonic wall thickening at the hepatic flexure is likely reactive. There is a right-sided surgical drain terminating near Morison's pouch. There is right upper quadrant of mental fat stranding. No drainable collection is identified. A few tiny foci of free air adjacent to the liver is nonspecific given history of recent surgery.In the pelvis, air within the bladder is probably related to instrumentation. The prostate gland is mildly enlarged. No ascites. No lymphadenopathy. Bony structures demonstrate degenerative changes. There is subcutaneous edema in the right lateral abdominal wall, and skin julius are present. Impression: Cirrhosis and splenomegaly. Patient is status post recent subtotal cholecystectomy. There are several hyperdensities in the gallbladder fossa, concerning for stones in the gallbladder remnant. Thereis also pneumobilia, without significant ductal dilatation. Nonobstructive stones in the kidneys. Colonic diverticulosis. Small bilateral pleural effusions. Mild atelectasis/consolidation at the lung bases. Signed: Esperanza Mataort Verified Date/Time: 03/20/2021 15:05:45 Reading Location: [address] Ortho Consult Reading Room POCT-GLUCOSE [id number] 10:48:00 Test Item Value Reference Range Interpretation Comments POC-GLUCOSE METER 199 mg/dL 70-110 H : TESTED Ashwini Vazquez [facility] [facility] (test code = [place], 1538) [id number]: Truck Driver Teamster/Techni bradford ID = [id number] for BRAD JACKSON U/S, ABDOMINAL, [id number] 10:38:00Referring: Dr. Oneil Labs to be ordered:->Body Fluid Culture (w/Gram Stain, C\\T\\S) Labs to be ordered:- >Cell Count Reason for exam:->abdominal distention, ascites Should this be performed at the bedside?->No [facility] : 1950 Sex: MFINAL REPORT History: Ascites, abdominal distention. FINDINGS: Limited sonographic examination performed in preparation for planned ultrasound-guided paracentesis shows no significant peritoneal fluid. Therefore, the paracentesis was canceled. IMPRESSION: 1. No ascites. Signed: Mark Chavarria MDReport Verified Date/Time: 03/20/2021 10:38:21 Reading Location: [address] Transitional Reading Room POCT-GLUCOSE [id number] 07:13:00 Test Item Value Reference Range Interpretation Comments POC-GLUCOSE METER 163 mg/dL 70-110 H : TESTED A T [facility] 6720 (BEAKER) (test code = [place], 1538) [address]: Truck Driver Teamster/Techni bradford ID = [id number] for BurkeKARENA PALMYRA BASIC METABOLIC [id number] 06:18:00 Test Item Value Reference Range Interpretation Comments SODIUM (BEAKER) 137 meq/L 136-145 (test code = 381) POTASSIUM (BEAKER) 3.7 meq/L 3.5-5.1 (test code = 379) CHLORIDE (BEAKER) 103 meq/L 98-107 (test code = 382) CO2 (BEAKER) (test 25 meq/L 22-29 code = 355) BLOOD UREA NITROGEN 10 mg/dL 7-21 (BEAKER) (test code = 354) CREATININE (BEAKER) 0.57 mg/dL 0.57-1.25 (test code = 358) GLUCOSE RANDOM 122 mg/dL 70-105 H (BEAKER) (test code = 652) CALCIUM (BEAKER) 8.2 mg/dL 8.4-10.2 L (test code = 697) EGFR (BEAKER) (test 142 mL/min/1.73 ESTIM ATED GFR IS code = 1092) sq m NOT ACCURATE CREATININE CLEARANCE IN PREDICTING GLOMERULAR FILTRATION RATE . ESTIMATED GFR I S NOT APPLICABLE FOR DIALYSIS PATIEN TS. 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 - RAKAN [id number] 06:18:00 Test Item Value Reference Range Interpretation Comments MAGNESIUM (BEAKER) (test code = 1.4 mg/dL 1.6-2.6 L 627) 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 Boo [place] [id number] 06:18:00 Test Item Value Reference Range Interpretation Comments PHOSPHORUS (BEAKER) (test code = 1.9 mg/dL 2.3-4.7 L 604) 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 Boo [place] WHEPATIC FUNCTION [id number] 06:18:00 Test Item Value Reference Range Interpretation Comments TOTAL PROTEIN (BEAKER) (test code = 5.7 gm/dL 6.0-8.3 L 770) ALBUMIN (BEAKER) (test code = 1145) 2.5 g/dL 3.5-5.0 L BILIRUBIN TOTAL (BEAKER) (test code 0.8 mg/dL 0.2-1.2 = 377) BILIRUBIN DIRECT (BEAKER) (test 0.5 mg/dL 0.1-0.5 code = 706) ALKALINE PHOSPHATASE (BEAKER) (test 66 U/L 40-150 code = 346) AST (SGOT) (BEAKER) (test code = 24 U/L 5-34 353) ALT (SGPT) (BEAKER) (test code = 11 U/L 6-55 347) 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 Boo HARRISROTHROMBIN TIME/[id number] 05:35:00 Test Item Value Reference Range Interpretation Comments PROTIME (BEAKER) 15.4 seconds 11.9-14.2 H (test code = 759) INR (BEAKER) (test 1.24 See_Comment [Automat ed message] code = 370) The system avocadostore generated this result transmitted ref erence range: <=5.90. The reference range was not used to int erpret this result as normal/abnormal . RECOMMENDED COUMADIN/WARFARIN INR THERAPY RANGESSTANDARD DOSE: 2.0 - 3.0 Includes: PROPHYLAXIS forvenous thrombosis, systemic embolization; TREATMENT for venous thrombosis and/or pulmonary embolus.HIGH RISK: Target INR is 2.5-3.5 for patients with mechanical heart valves.CBC W/PLT COUNT & AUTO DIFFERENTIAL 2021-03-20 05:24:00 Test Item Value Reference Range Interpretation Comments WHITE BLOOD CELL COUNT (BEAKER) 2.7 K/ L 3.5-10.5 L (test code = 775) RED BLOOD CELL COUNT (BEAKER) 3.86 M/ L 4.63-6.08 L (test code = 761) HEMOGLOBIN (BEAKER) (test code = 10.2 GM/DL 13.7-17.5 L 410) HEMATOCRIT (BEAKER) (test code = 32.4 % 40.1-51.0 L 411) MEAN CORPUSCULAR VOLUME (BEAKER) 83.9 fL 79.0-92.2 (test code = 753) MEAN CORPUSCULAR HEMOGLOBIN 26.4 pg 25.7-32.2 (BEAKER) (test code = 751) MEAN CORPUSCULAR HEMOGLOBIN CONC 31.5 GM/DL 32.3-36.5 L (BEAKER) (test code = 752) RED CELL DISTRIBUTION WIDTH 16.9 % 11.6-14.4 H (BEAKER) (test code = 412) PLATELET COUNT (BEAKER) (test code 91 K/CU MM 150-450 L = 756) MEAN PLATELET VOLUME (BEAKER) 10.1 fL 9.4-12.4 (test code = 754) NUCLEATED RED BLOOD CELLS (BEAKER) 0 /100 WBC 0-0 (test code = 413) NEUTROPHILS RELATIVE PERCENT 59 % (BEAKER) (test code = 429) LYMPHOCYTES RELATIVE PERCENT 23 % (BEAKER) (test code = 430) MONOCYTES RELATIVE PERCENT 10 % (BEAKER) (test code = 431) EOSINOPHILS RELATIVE PERCENT 6 % (BEAKER) (test code = 432) BASOPHILS RELATIVE PERCENT 1 % (BEAKER) (test code = 437) NEUTROPHILS ABSOLUTE COUNT 1.60 K/ L 1.78-5.38 L (BEAKER) (test code = 670) LYMPHOCYTES ABSOLUTE COUNT 0.63 K/ L 1.32-3.57 L (BEAKER) (test code = 414) MONOCYTES ABSOLUTE COUNT (BEAKER) 0.26 K/ L 0.30-0.82 L (test code = 415) EOSINOPHILS ABSOLUTE COUNT 0.17 K/ L 0.04-0.54 (BEAKER) (test code = 416) BASOPHILS ABSOLUTE COUNT (BEAKER) 0.03 K/ L 0.01-0.08 (test code = 417) IMMATURE GRANULOCYTES-RELATIVE 1 % 0-1 PERCENT (BEAKER) (test code = 2801) POCT-GLUCOSE [id number] 22:07:00 Test Item Value Reference Range Interpretation Comments POC-GLUCOSE METER 185 mg/dL 70-110 H : TESTED A T [facility] 6720 (BEAKER) (test code = [facility], 1538) [address]: Truck Driver Teamster/Techni bradford ID = [id number] for PRABHU GANDHI POCT-GLUCOSE [id number] 16:13:00 Test Item Value Reference Range Interpretation Comments POC-GLUCOSE METER 188 mg/dL 70-110 H : TESTED A T [facility] 6720 (BEAKER) (test code = [facility], 1538) 723[address]: Truck Driver Teamster/Techni bradford ID = [id number] for ST JENNY, NADA Urine [id number] 13:20:00 Test Item Value Reference Range Interpretation Comments Result (test code = 6463-4) [facility] [id number] 13:20:00 Test Item Value Reference Range Interpretation Comments CULTURE (BEAKER) (test code = 1095) No growth POCT-GLUCOSE [id number] 10:56:00 Test Item Value Reference Range Interpretation Comments POC-GLUCOSE METER 154 mg/dL 70-110 H : TESTED A T [facility] 6720 (BEAKER) (test code = [facility], 1538) 883[address]: Truck Driver Teamster/Techni bradford ID = [id number] for ST OJCIC, NADA POCT-GLUCOSE [id number] 07:22:00 Test Item Value Reference Range Interpretation Comments POC-GLUCOSE METER 128 mg/dL 70-110 H : TESTED A T [facility] 6720 (BEAKER) (test code = [facility], 1538) 215[address]: Truck Driver Teamster/Techni bradford ID = [id number] for ST OJCIC, NADA BASIC METABOLIC [id number] 05:21:00 Test Item Value Reference Range Interpretation Comments SODIUM (BEAKER) 137 meq/L 136-145 (test code = 381) POTASSIUM (BEAKER) 3.6 meq/L 3.5-5.1 (test code = 379) CHLORIDE (BEAKER) 102 meq/L 98-107 (test code = 382) CO2 (BEAKER) (test 25 meq/L 22-29 code = 355) BLOOD UREA NITROGEN 12 mg/dL 7-21 (BEAKER) (test code = 354) CREATININE (BEAKER) 0.61 mg/dL 0.57-1.25 (test code = 358) GLUCOSE RANDOM 132 mg/dL 70-105 H (BEAKER) (test code = 652) CALCIUM (BEAKER) 8.2 mg/dL 8.4-10.2 L (test code = 697) EGFR (BEAKER) (test 131 mL/min/1.73 ESTIM ATED GFR IS code = 1092) sq m NOT ACCURATE CREATININE CLEARANCE IN PREDICTING GLOMERULAR FILTRATION RATE . ESTIMATED GFR I S NOT APPLICABLE FOR DIALYSIS PATIEN TS. 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 - [id number] 05:21:00 Test Item Value Reference Range Interpretation Comments MAGNESIUM (BEAKER) (test code = 1.3 mg/dL 1.6-2.6 L 627) 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 - [id number] 05:21:00 Test Item Value Reference Range Interpretation Comments PHOSPHORUS (BEAKER) (test code = 2.5 mg/dL 2.3-4.7 604) 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 - EDASIHEPATIC FUNCTION [id number] 05:21:00 Test Item Value Reference Range Interpretation Comments TOTAL PROTEIN (BEAKER) (test code = 5.6 gm/dL 6.0-8.3 L 770) ALBUMIN (BEAKER) (test code = 1145) 2.5 g/dL 3.5-5.0 L BILIRUBIN TOTAL (BEAKER) (test code 0.8 mg/dL 0.2-1.2 = 377) BILIRUBIN DIRECT (BEAKER) (test 0.6 mg/dL 0.1-0.5 H code = 706) ALKALINE PHOSPHATASE (BEAKER) (test 64 U/L 40-150 code = 346) AST (SGOT) (BEAKER) (test code = 23 U/L 5-34 353) ALT (SGPT) (BEAKER) (test code = 12 U/L 6-55 347) 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 - EDASIPROTHROMBIN TIME/[id number] 04:59:00 Test Item Value Reference Range Interpretation Comments PROTIME (BEAKER) 15.8 seconds 11.9-14.2 H (test code = 759) INR (BEAKER) (test 1.28 See_Comment [Automat ed message] code = 370) The system avocadostore generated this result transmitted ref erence range: <=5.90. The reference range was not used to int erpret this result as normal/abnormal . RECOMMENDED COUMADIN/WARFARIN INR THERAPY RANGESSTANDARD DOSE: 2.0 - 3.0 Includes: PROPHYLAXIS forvenous thrombosis, systemic embolization; TREATMENT for venous thrombosis and/or pulmonary embolus.HIGH RISK: Target INR is 2.5-3.5 for patients with mechanical heart valves.CBC W/PLT COUNT & AUTO DIFFERENTIAL 2021-03-19 04:56:00 Test Item Value Reference Range Interpretation Comments WHITE BLOOD CELL COUNT (BEAKER) 3.1 K/ L 3.5-10.5 L (test code = 775) RED BLOOD CELL COUNT (BEAKER) 3.79 M/ L 4.63-6.08 L (test code = 761) HEMOGLOBIN (BEAKER) (test code = 10.1 GM/DL 13.7-17.5 L 410) HEMATOCRIT (BEAKER) (test code = 32.2 % 40.1-51.0 L 411) MEAN CORPUSCULAR VOLUME (BEAKER) 85.0 fL 79.0-92.2 (test code = 753) MEAN CORPUSCULAR HEMOGLOBIN 26.6 pg 25.7-32.2 (BEAKER) (test code = 751) MEAN CORPUSCULAR HEMOGLOBIN CONC 31.4 GM/DL 32.3-36.5 L (BEAKER) (test code = 752) RED CELL DISTRIBUTION WIDTH 16.7 % 11.6-14.4 H (BEAKER) (test code = 412) PLATELET COUNT (BEAKER) (test code 84 K/CU MM 150-450 L = 756) MEAN PLATELET VOLUME (BEAKER) 9.4 fL 9.4-12.4 (test code = 754) NUCLEATED RED BLOOD CELLS (BEAKER) 0 /100 WBC 0-0 (test code = 413) NEUTROPHILS RELATIVE PERCENT 65 % (BEAKER) (test code = 429) LYMPHOCYTES RELATIVE PERCENT 18 % (BEAKER) (test code = 430) MONOCYTES RELATIVE PERCENT 9 % (BEAKER) (test code = 431) EOSINOPHILS RELATIVE PERCENT 7 % (BEAKER) (test code = 432) BASOPHILS RELATIVE PERCENT 0 % (BEAKER) (test code = 437) NEUTROPHILS ABSOLUTE COUNT 2.00 K/ L 1.78-5.38 (BEAKER) (test code = 670) LYMPHOCYTES ABSOLUTE COUNT 0.57 K/ L 1.32-3.57 L (BEAKER) (test code = 414) MONOCYTES ABSOLUTE COUNT (BEAKER) 0.28 K/ L 0.30-0.82 L (test code = 415) EOSINOPHILS ABSOLUTE COUNT 0.21 K/ L 0.04-0.54 (BEAKER) (test code = 416) BASOPHILS ABSOLUTE COUNT (BEAKER) 0.01 K/ L 0.01-0.08 (test code = 417) IMMATURE GRANULOCYTES-RELATIVE 1 % 0-1 PERCENT (BEAKER) (test code = 2801) POCT-GLUCOSE [id number] 00:14:00 Test Item Value Reference Range Interpretation Comments POC-GLUCOSE METER 141 mg/dL 70-110 H : TESTED A T [facility] 6720 (BEAKER) (test code = [facility], 1538) 168[address]: Truck Driver Teamster/Techni bradford ID = [id number] for SHANTI WING POCT-GLUCOSE [id number] 11:35:00 Test Item Value Reference Range Interpretation Comments POC-GLUCOSE METER 165 mg/dL 70-110 H : TESTED A T [facility] 6720 (BEAKER) (test code = [facility], 1538) 314[address]: Truck Driver Teamster/Techni bradford ID = [id number] for TE ELLEN, OLIVIA POCT-GLUCOSE [id number] 08:31:00 Test Item Value Reference Range Interpretation Comments POC-GLUCOSE METER 206 mg/dL 70-110 H : TESTED A T [facility] 6720 (BEAKER) (test code = [facility], 1538) 28[address]: Truck Driver Teamster/Techni bradford ID = [id number] for TE ELLEN, OLIVIA BASIC METABOLIC [id number] 07:09:00 Test Item Value Reference Range Interpretation Comments SODIUM (BEAKER) 138 meq/L 136-145 (test code = 381) POTASSIUM (BEAKER) 4.1 meq/L 3.5-5.1 (test code = 379) CHLORIDE (BEAKER) 103 meq/L 98-107 (test code = 382) CO2 (BEAKER) (test 26 meq/L 22-29 code = 355) BLOOD UREA NITROGEN 13 mg/dL 7-21 (BEAKER) (test code = 354) CREATININE (BEAKER) 0.64 mg/dL 0.57-1.25 (test code = 358) GLUCOSE RANDOM 127 mg/dL 70-105 H (BEAKER) (test code = 652) CALCIUM (BEAKER) 8.7 mg/dL 8.4-10.2 (test code = 697) EGFR (BEAKER) (test 124 mL/min/1.73 ESTIM ATED GFR IS code = 1092) sq m NOT ACCURATE CREATININE CLEARANCE IN PREDICTING GLOMERULAR FILTRATION RATE . ESTIMATED GFR I S NOT APPLICABLE FOR DIALYSIS PATIEN TS. 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 - [id number] 07:09:00 Test Item Value Reference Range Interpretation Comments MAGNESIUM (BEAKER) (test code = 1.4 mg/dL 1.6-2.6 L 627) 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 - [id number] 07:09:00 Test Item Value Reference Range Interpretation Comments PHOSPHORUS (BEAKER) (test code = 2.0 mg/dL 2.3-4.7 L 604) 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 - ADMINHEPATIC FUNCTION [id number] 07:09:00 Test Item Value Reference Range Interpretation Comments TOTAL PROTEIN (BEAKER) (test code = 5.9 gm/dL 6.0-8.3 L 770) ALBUMIN (BEAKER) (test code = 1145) 2.6 g/dL 3.5-5.0 L BILIRUBIN TOTAL (BEAKER) (test code 1.6 mg/dL 0.2-1.2 H = 377) BILIRUBIN DIRECT (BEAKER) (test 1.0 mg/dL 0.1-0.5 H code = 706) ALKALINE PHOSPHATASE (BEAKER) (test 66 U/L 40-150 code = 346) AST (SGOT) (BEAKER) (test code = 30 U/L 5-34 353) ALT (SGPT) (BEAKER) (test code = 13 U/L 6-55 347) 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 - ADMINVANCOMYCIN LEVEL, [id number] 06:58:00 Test Item Value Reference Range Interpretation Comments VANCOMYCIN TROUGH (BEAKER) (test 16.1 ug/mL 10.0-20.0 code = 522) 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 - PIAYA LPROTHROMBIN TIME/[id number] 06:40:00 Test Item Value Reference Range Interpretation Comments PROTIME (BEAKER) 16.2 seconds 11.9-14.2 H (test code = 759) INR (BEAKER) (test 1.32 See_Comment [Automat ed message] code = 370) The system avocadostore generated this result transmitted ref erence range: <=5.90. The reference range was not used to int erpret this result as normal/abnormal . RECOMMENDED COUMADIN/WARFARIN INR THERAPY RANGESSTANDARD DOSE: 2.0 - 3.0 Includes: PROPHYLAXIS forvenous thrombosis, systemic embolization; TREATMENT for venous thrombosis and/or pulmonary embolus.HIGH RISK: Target INR is 2.5-3.5 for patients with mechanical heart valves.CBC W/PLT COUNT & AUTO DIFFERENTIAL 2021-03-18 06:29:00 Test Item Value Reference Range Interpretation Comments WHITE BLOOD CELL COUNT (BEAKER) 3.8 K/ L 3.5-10.5 (test code = 775) RED BLOOD CELL COUNT (BEAKER) 3.99 M/ L 4.63-6.08 L (test code = 761) HEMOGLOBIN (BEAKER) (test code = 10.6 GM/DL 13.7-17.5 L 410) HEMATOCRIT (BEAKER) (test code = 34.3 % 40.1-51.0 L 411) MEAN CORPUSCULAR VOLUME (BEAKER) 86.0 fL 79.0-92.2 (test code = 753) MEAN CORPUSCULAR HEMOGLOBIN 26.6 pg 25.7-32.2 (BEAKER) (test code = 751) MEAN CORPUSCULAR HEMOGLOBIN CONC 30.9 GM/DL 32.3-36.5 L (BEAKER) (test code = 752) RED CELL DISTRIBUTION WIDTH 16.5 % 11.6-14.4 H (BEAKER) (test code = 412) PLATELET COUNT (BEAKER) (test code 78 K/CU MM 150-450 L = 756) MEAN PLATELET VOLUME (BEAKER) 9.6 fL 9.4-12.4 (test code = 754) NUCLEATED RED BLOOD CELLS (BEAKER) 0 /100 WBC 0-0 (test code = 413) NEUTROPHILS RELATIVE PERCENT 70 % (BEAKER) (test code = 429) LYMPHOCYTES RELATIVE PERCENT 14 % (BEAKER) (test code = 430) MONOCYTES RELATIVE PERCENT 10 % (BEAKER) (test code = 431) EOSINOPHILS RELATIVE PERCENT 6 % (BEAKER) (test code = 432) BASOPHILS RELATIVE PERCENT 1 % (BEAKER) (test code = 437) NEUTROPHILS ABSOLUTE COUNT 2.67 K/ L 1.78-5.38 (BEAKER) (test code = 670) LYMPHOCYTES ABSOLUTE COUNT 0.53 K/ L 1.32-3.57 L (BEAKER) (test code = 414) MONOCYTES ABSOLUTE COUNT (BEAKER) 0.37 K/ L 0.30-0.82 (test code = 415) EOSINOPHILS ABSOLUTE COUNT 0.22 K/ L 0.04-0.54 (BEAKER) (test code = 416) BASOPHILS ABSOLUTE COUNT (BEAKER) 0.02 K/ L 0.01-0.08 (test code = 417) IMMATURE GRANULOCYTES-RELATIVE 1 % 0-1 PERCENT (BEAKER) (test code = 2801) POCT-GLUCOSE [id number] 00:24:00 Test Item Value Reference Range Interpretation Comments POC-GLUCOSE METER 140 mg/dL 70-110 H : Notified RN/MD: ([facility]) (test code = TESTED AT [place] [address] 1538) [facility], [address]: Truck Driver Teamster/Techni bradford ID = [id number] for ANAYELI HOLLAND POCT-GLUCOSE [id number] 17:06:00 Test Item Value Reference Range Interpretation Comments POC-GLUCOSE METER 147 mg/dL 70-110 H : TESTED A T [place] [address] ([facility]) (test code = [facility], 1538) [address]: Truck Driver Teamster/Techni bradford ID = [id number] for LEIA FREDI HUGHESA Urinalysis w/Microscopic + Reflex to [id number] 14:58:00 Test Item Value Reference Range Interpretation Comments Color, UA (test code Yellow = 5778-6) Clarity, UA (test Clear code = 5767-9) Specific [place], UA 1.029 1.001-1.035 (test code = 5811-5) pH, UA (test code = 6.0 5.0-8.0 5803-2) Protein, UA (test 10 mg/dL Negative A code = 44126-5) Glucose, UA (test Negative Negative code = 365) Ketones, UA (test Negative Negative code = 2514-8) Bilirubin, UA (test Negative Negative code = 43434-1) Blood, UA (test code Negative Negative = 11258-8) Nitrite, UA (test Negative Negative code = 5802-4) Leukocytes, UA (test Trace Negative A code = 5799-2) Urobilinogen, UA 0.2 mg/dL 0.2-1.0 (test code = 06884-0) RBC, UA (test code = 5 See_Comment [Autom ated 38735-1) message] The system which generated this result transmit chilango reference range : /HPF. The reference range was not used to interpret this result as normal/abnormal . WBC, UA (test code = 5 See_Comment [Autom ated 5821-4) message] The system which generated this result transmit chilango reference range : /HPF. The reference range was not used to interpret this result as normal/abnormal . Bacteria, UA (test Rare code = 28866-1) Crystals, Urine (test None Seen code = 67774-5) Specimen Source (test code = 2795) SRAVANTHI (test code = SRAVANTHI) 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 - [auto]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 - tech Lab Interpretation Abnormal (test code = 64265-3) [facility] [id number] 14:58:00 Test Item Value Reference Range Interpretation Comments COLOR (BEAKER) (test code = 470) Yellow CLARITY (BEAKER) (test code = 469) Clear SPECIFIC GRAVITY UA (BEAKER) (test 1.029 1.001-1.035 code = 468) PH UA (BEAKER) (test code = 467) 6.0 5.0-8.0 PROTEIN UA (BEAKER) (test code = 10 mg/dL Negative A 464) GLUCOSE UA (BEAKER) (test code = Negative Negative 365) KETONES UA (BEAKER) (test code = Negative Negative 371) BILIRUBIN UA (BEAKER) (test code = Negative Negative 462) BLOOD UA (BEAKER) (test code = 461) Negative Negative NITRITE UA (BEAKER) (test code = Negative Negative 465) LEUKOCYTE ESTERASE UA (BEAKER) Trace Negative A (test code = 466) UROBILINOGEN UA (BEAKER) (test code 0.2 mg/dL 0.2-1.0 = 463) RBC UA (BEAKER) (test code = 519) 5 /HPF WBC UA (BEAKER) (test code = 520) 5 /HPF BACTERIA (BEAKER) (test code = 517) Rare CRYSTALS, URINE (BEAKER) (test code None Seen = 1521) SOURCE(BEAKER) (test code = 2795) 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 - [auto]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 - techHemoglobin and [id number] 12:12:00 Test Item Value Reference Range Interpretation Comments Hemoglobin (test code 10.7 See_Comment L [Auto mated = 786-4) message] The system which generated this result transmit chilango reference range : 13.7 - 17.5 GM/ DL. The reference range was not u sed to interpret th is result as normal/abnormal . Hematocrit (test code 34.1 % 40.1-51.0 L = 4544-3) SRAVANTHI (test code = SRAVANTHI) 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 - [id number] Lab Interpretation Abnormal (test code = 88496-5) [facility] AND [id number] 12:12:00 Test Item Value Reference Range Interpretation Comments HEMOGLOBIN (BEAKER) (test code = 10.7 GM/DL 13.7-17.5 L 410) HEMATOCRIT (BEAKER) (test code = 34.1 % 40.1-51.0 L 411) 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 - [id number]-GLUCOSE [id number] 11:59:00 Test Item Value Reference Range Interpretation Comments POC-GLUCOSE METER 156 mg/dL 70-110 H : TESTED A T [facility] 6720 (BEAKER) (test code = [facility], 1538) [address]: Truck Driver Teamster/Techni bradford ID = [id number] for TE ELLEN, OLIVIA POCT-GLUCOSE [id number] 08:16:00 Test Item Value Reference Range Interpretation Comments POC-GLUCOSE METER 163 mg/dL 70-110 H : TESTED A T [facility] 6720 (BEAKER) (test code = [facility], 1538) 86[address]: Truck Driver Teamster/Techni bradford ID = [id number] for TE ELLEN, OLIVIA BASIC METABOLIC [id number] 04:52:00 Test Item Value Reference Range Interpretation Comments SODIUM (BEAKER) 136 meq/L 136-145 (test code = 381) POTASSIUM (BEAKER) 4.3 meq/L 3.5-5.1 (test code = 379) CHLORIDE (BEAKER) 102 meq/L 98-107 (test code = 382) CO2 (BEAKER) (test 26 meq/L 22-29 code = 355) BLOOD UREA NITROGEN 15 mg/dL 7-21 (BEAKER) (test code = 354) CREATININE (BEAKER) 0.74 mg/dL 0.57-1.25 (test code = 358) GLUCOSE RANDOM 152 mg/dL 70-105 H (BEAKER) (test code = 652) CALCIUM (BEAKER) 8.6 mg/dL 8.4-10.2 (test code = 697) EGFR (BEAKER) (test 105 mL/min/1.73 ESTIM ATED GFR IS code = 1092) sq m NOT ACCURATE CREATININE CLEARANCE IN PREDICTING GLOMERULAR FILTRATION RATE . ESTIMATED GFR I S NOT APPLICABLE FOR DIALYSIS PATIEN TS. 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 - KJ [id number] 04:52:00 Test Item Value Reference Range Interpretation Comments MAGNESIUM (BEAKER) (test code = 1.4 mg/dL 1.6-2.6 L 627) 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 - KJ [id number] 04:52:00 Test Item Value Reference Range Interpretation Comments PHOSPHORUS (BEAKER) (test code = 2.1 mg/dL 2.3-4.7 L 604) 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 - KJ LHEPATIC FUNCTION [id number] 04:52:00 Test Item Value Reference Range Interpretation Comments TOTAL PROTEIN (BEAKER) (test code = 5.9 gm/dL 6.0-8.3 L 770) ALBUMIN (BEAKER) (test code = 1145) 2.7 g/dL 3.5-5.0 L BILIRUBIN TOTAL (BEAKER) (test code 2.0 mg/dL 0.2-1.2 H = 377) BILIRUBIN DIRECT (BEAKER) (test 1.3 mg/dL 0.1-0.5 H code = 706) ALKALINE PHOSPHATASE (BEAKER) (test 66 U/L 40-150 code = 346) AST (SGOT) (BEAKER) (test code = 30 U/L 5-34 353) ALT (SGPT) (BEAKER) (test code = 14 U/L 6-55 347) 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 - KJ LCBC W/PLT COUNT & AUTO [id number] 04:26:00 Test Item Value Reference Range Interpretation Comments WHITE BLOOD CELL COUNT (BEAKER) 4.9 K/ L 3.5-10.5 (test code = 775) RED BLOOD CELL COUNT (BEAKER) 4.14 M/ L 4.63-6.08 L (test code = 761) HEMOGLOBIN (BEAKER) (test code = 10.8 GM/DL 13.7-17.5 L 410) HEMATOCRIT (BEAKER) (test code = 34.8 % 40.1-51.0 L 411) MEAN CORPUSCULAR VOLUME (BEAKER) 84.1 fL 79.0-92.2 (test code = 753) MEAN CORPUSCULAR HEMOGLOBIN 26.1 pg 25.7-32.2 (BEAKER) (test code = 751) MEAN CORPUSCULAR HEMOGLOBIN CONC 31.0 GM/DL 32.3-36.5 L (BEAKER) (test code = 752) RED CELL DISTRIBUTION WIDTH 16.7 % 11.6-14.4 H (BEAKER) (test code = 412) PLATELET COUNT (BEAKER) (test code 84 K/CU MM 150-450 L = 756) MEAN PLATELET VOLUME (BEAKER) 9.5 fL 9.4-12.4 (test code = 754) NUCLEATED RED BLOOD CELLS (BEAKER) 0 /100 WBC 0-0 (test code = 413) NEUTROPHILS RELATIVE PERCENT 74 % (BEAKER) (test code = 429) LYMPHOCYTES RELATIVE PERCENT 12 % (BEAKER) (test code = 430) MONOCYTES RELATIVE PERCENT 10 % (BEAKER) (test code = 431) EOSINOPHILS RELATIVE PERCENT 4 % (BEAKER) (test code = 432) BASOPHILS RELATIVE PERCENT 0 % (BEAKER) (test code = 437) NEUTROPHILS ABSOLUTE COUNT 3.61 K/ L 1.78-5.38 (BEAKER) (test code = 670) LYMPHOCYTES ABSOLUTE COUNT 0.61 K/ L 1.32-3.57 L (BEAKER) (test code = 414) MONOCYTES ABSOLUTE COUNT (BEAKER) 0.47 K/ L 0.30-0.82 (test code = 415) EOSINOPHILS ABSOLUTE COUNT 0.19 K/ L 0.04-0.54 (BEAKER) (test code = 416) BASOPHILS ABSOLUTE COUNT (BEAKER) 0.02 K/ L 0.01-0.08 (test code = 417) IMMATURE GRANULOCYTES-RELATIVE 0 % 0-1 PERCENT (BEAKER) (test code = 2801) POCT-GLUCOSE [id number] 23:55:00 Test Item Value Reference Range Interpretation Comments POC-GLUCOSE METER 155 mg/dL 70-110 H : [facility]ED [facility] (BEAKER) (test code = [facility], 1538) [address]: Truck Driver [employer]/Techni bradford ID = [id number] for CESIA ALVARADO POCT-GLUCOSE [id number] 18:23:00 Test Item Value Reference Range Interpretation Comments POC-GLUCOSE METER 162 mg/dL 70-110 H : Notified RN/MD: ([facility]) (test code = TESTED AT [place] [id number]) [facility], [address]: Truck Driver [employer]/Techni bradford ID = [id number] for [facility] (contract), [place] POCT-GLUCOSE [id number] 11:49:00 Test Item Value Reference Range Interpretation Comments POC-GLUCOSE METER 140 mg/dL 70-110 H : Notified RN/MD: (BEAKER) (test code = TESTED AT [place] [address]38) [facility], [address]: Truck Driver [employer]/Techni bradford ID = [id number] for [facility] (contract), [place] BASIC METABOLIC [id number] 04:44:00 Test Item Value Reference Range Interpretation Comments SODIUM (BEAKER) 139 meq/L 136-145 (test code = 381) POTASSIUM (BEAKER) 4.4 meq/L 3.5-5.1 (test code = 379) CHLORIDE (BEAKER) 107 meq/L 98-107 (test code = 382) CO2 (BEAKER) (test 23 meq/L 22-29 code = 355) BLOOD UREA NITROGEN 15 mg/dL 7-21 (BEAKER) (test code = 354) CREATININE (BEAKER) 0.73 mg/dL 0.57-1.25 (test code = 358) GLUCOSE RANDOM 153 mg/dL 70-105 H (BEAKER) (test code = 652) CALCIUM (BEAKER) 8.7 mg/dL 8.4-10.2 (test code = 697) EGFR (BEAKER) (test 107 mL/min/1.73 ESTIM ATED GFR IS code = 1092) sq m NOT ACCURATE CREATININE CLEARANCE IN PREDICTING GLOMERULAR FILTRATION RATE . ESTIMATED GFR I S NOT APPLICABLE FOR DIALYSIS PATIEN TS. 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 - RAKAN [id number] 04:44:00 Test Item Value Reference Range Interpretation Comments MAGNESIUM (BEAKER) (test code = 1.9 mg/dL 1.6-2.6 627) 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 - RAKAN [id number] 04:44:00 Test Item Value Reference Range Interpretation Comments PHOSPHORUS (BEAKER) (test code = 2.9 mg/dL 2.3-4.7 604) 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 - RAKAN WHEPATIC FUNCTION [id number] 04:44:00 Test Item Value Reference Range Interpretation Comments TOTAL PROTEIN (BEAKER) (test code = 6.4 gm/dL 6.0-8.3 770) ALBUMIN (BEAKER) (test code = 1145) 3.0 g/dL 3.5-5.0 L BILIRUBIN TOTAL (BEAKER) (test code 1.7 mg/dL 0.2-1.2 H = 377) BILIRUBIN DIRECT (BEAKER) (test 1.0 mg/dL 0.1-0.5 H code = 706) ALKALINE PHOSPHATASE (BEAKER) (test 75 U/L 40-150 code = 346) AST (SGOT) (BEAKER) (test code = 36 U/L 5-34 H 353) ALT (SGPT) (BEAKER) (test code = 13 U/L 6-55 347) 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 - RAKAN WPROTHROMBIN TIME/[id number] 04:08:00 Test Item Value Reference Range Interpretation Comments PROTIME (BEAKER) 16.8 seconds 11.9-14.2 H (test code = 759) INR (BEAKER) (test 1.38 See_Comment [Automat ed message] code = 370) The system [employer] generated this result transmitted ref erence range: <=5.90. The reference range was not used to int erpret this result as normal/abnormal . RECOMMENDED COUMADIN/WARFARIN INR THERAPY RANGESSTANDARD DOSE: 2.0 - 3.0 Includes: PROPHYLAXIS forvenous thrombosis, systemic embolization; TREATMENT for venous thrombosis and/or pulmonary embolus.HIGH RISK: Target INR is 2.5-3.5 for patients with mechanical heart valves.CBC W/PLT COUNT & AUTO DIFFERENTIAL 2021-03-16 03:57:00 Test Item Value Reference Range Interpretation Comments WHITE BLOOD CELL COUNT (BEAKER) 9.3 K/ L 3.5-10.5 (test code = 775) RED BLOOD CELL COUNT (BEAKER) 4.69 M/ L 4.63-6.08 (test code = 761) HEMOGLOBIN (BEAKER) (test code = 12.2 GM/DL 13.7-17.5 L 410) HEMATOCRIT (BEAKER) (test code = 39.7 % 40.1-51.0 L 411) MEAN CORPUSCULAR VOLUME (BEAKER) 84.6 fL 79.0-92.2 (test code = 753) MEAN CORPUSCULAR HEMOGLOBIN 26.0 pg 25.7-32.2 (BEAKER) (test code = 751) MEAN CORPUSCULAR HEMOGLOBIN CONC 30.7 GM/DL 32.3-36.5 L (BEAKER) (test code = 752) RED CELL DISTRIBUTION WIDTH 17.2 % 11.6-14.4 H (BEAKER) (test code = 412) PLATELET COUNT (BEAKER) (test 151 K/CU MM 150-450 code = 756) MEAN PLATELET VOLUME (BEAKER) 9.9 fL 9.4-12.4 (test code = 754) NUCLEATED RED BLOOD CELLS 0 /100 WBC 0-0 (BEAKER) (test code = 413) NEUTROPHILS RELATIVE PERCENT 83 % (BEAKER) (test code = 429) LYMPHOCYTES RELATIVE PERCENT 7 % (BEAKER) (test code = 430) MONOCYTES RELATIVE PERCENT 9 % (BEAKER) (test code = 431) EOSINOPHILS RELATIVE PERCENT 0 % (BEAKER) (test code = 432) BASOPHILS RELATIVE PERCENT 0 % (BEAKER) (test code = 437) NEUTROPHILS ABSOLUTE COUNT 7.74 K/ L 1.78-5.38 H (BEAKER) (test code = 670) LYMPHOCYTES ABSOLUTE COUNT 0.66 K/ L 1.32-3.57 L (BEAKER) (test code = 414) MONOCYTES ABSOLUTE COUNT (BEAKER) 0.82 K/ L 0.30-0.82 (test code = 415) EOSINOPHILS ABSOLUTE COUNT 0.02 K/ L 0.04-0.54 L (BEAKER) (test code = 416) BASOPHILS ABSOLUTE COUNT (BEAKER) 0.02 K/ L 0.01-0.08 (test code = 417) IMMATURE GRANULOCYTES-RELATIVE 1 % 0-1 PERCENT (BEAKER) (test code = 2801) POCT-GLUCOSE [id number] 00:11:00 Test Item Value Reference Range Interpretation Comments POC-GLUCOSE METER 176 mg/dL 70-110 H : TESTED A T [facility] 6720 (BEAKER) (test [facility] 1538[facility] [address]: Truck Driver Teamster/Techni bradford ID = [id number] for ANGELA MARTÍNEZ MS POCT-GLUCOSE [id number] 16:49:00 Test Item Value Reference Range Interpretation Comments POC-GLUCOSE METER 246 mg/dL 70-110 H : TESTED A T [facility] 6720 (BEAKER) (test code [facility], = 1538) [address]: Truck Driver Teamster/Techni bradford ID = [id number] for Hansel velasco (contract)[employer] HEPATIC FUNCTION [id number] 13:40:00 Test Item Value Reference Range Interpretation Comments TOTAL PROTEIN (BEAKER) 7.1 gm/dL 6.0-8.3 Speci men slightly (test code = 770) hemolyzed ALBUMIN (BEAKER) (test 3.2 g/dL 3.5-5.0 L Speci men slightly code = 1145) hemolyzed BILIRUBIN TOTAL 2.3 mg/dL 0.2-1.2 H Specimen sli ghtly (BEAKER) (test code = hemoly zed 377) BILIRUBIN DIRECT 1.1 mg/dL 0.1-0.5 H Specimen sl ightly (BEAKER) (test code = hemoly zed 706) ALKALINE PHOSPHATASE 82 U/L 40-150 (BEAKER) (test code = 346) AST (SGOT) (BEAKER) 41 U/L 5-34 H Specimen slightly (test code = 353) hemolyzed ALT (SGPT) (BEAKER) 13 U/L 6-55 Specimen slightly (test code = 347) hemolyzed 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 - DBSpecimen slightly [id number] 13:39:00 Test Item Value Reference Range Interpretation Comments MAGNESIUM (BEAKER) 1.4 mg/dL 1.6-2.6 L Specimen slightly (test code = 627) hemolyzed 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 - [id number] 13:39:00 Test Item Value Reference Range Interpretation Comments PHOSPHORUS (BEAKER) 3.3 mg/dL 2.3-4.7 Specimen slightly (test code = 604) hemolyzed 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 - DBBASIC METABOLIC [id number] 13:39:00 Test Item Value Reference Range Interpretation Comments SODIUM (BEAKER) 138 meq/L 136-145 (test code = 381) POTASSIUM (BEAKER) 4.9 meq/L 3.5-5.1 Specimen slightly (test code = 379) hemolyzed CHLORIDE (BEAKER) 107 meq/L 98-107 (test code = 382) CO2 (BEAKER) (test 20 meq/L 22-29 L code = 355) BLOOD UREA NITROGEN 16 mg/dL 7-21 (BEAKER) (test code = 354) CREATININE (BEAKER) 0.81 mg/dL 0.57-1.25 Specimen slightly (test code = 358) hemolyzed GLUCOSE RANDOM 233 mg/dL 70-105 H (BEAKER) (test code = 652) CALCIUM (BEAKER) 8.6 mg/dL 8.4-10.2 (test code = 697) EGFR (BEAKER) (test 94 mL/min/1.73 ESTIMA CHILANGO GFR IS code = 1092) sq m NOT ACCURATE CREATININE CLEARANCE IN PREDICTING GLOMERULAR FILTRATION RATE . ESTIMATED GFR I S NOT APPLICABLE FOR DIALYSIS PATIEN TS. 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 - DBSpecimen slightly ictericPROTHROMBIN TIME/[id number] 13:39:00 Test Item Value Reference Range Interpretation Comments PROTIME (BEAKER) 16.4 seconds 11.9-14.2 H (test code = 759) INR (BEAKER) (test 1.34 See_Comment [Automat ed message] code = 370) The system [employer] generated this result transmitted ref erence range: <=5.90. The reference range was not used to int erpret this result as normal/abnormal . RECOMMENDED COUMADIN/WARFARIN INR THERAPY RANGESSTANDARD DOSE: 2.0 - 3.0 Includes: PROPHYLAXIS forvenous thrombosis, systemic embolization; TREATMENT for venous thrombosis and/or pulmonary embolus.HIGH RISK: Target INR is 2.5-3.5 for patients with mechanical heart valves.CBC W/PLT COUNT & AUTO DIFFERENTIAL 2021-03-15 13:34:00 Test Item Value Reference Range Interpretation Comments WHITE BLOOD CELL COUNT (BEAKER) 7.3 K/ L 3.5-10.5 (test code = 775) RED BLOOD CELL COUNT (BEAKER) 4.75 M/ L 4.63-6.08 (test code = 761) HEMOGLOBIN (BEAKER) (test code = 12.7 GM/DL 13.7-17.5 L 410) HEMATOCRIT (BEAKER) (test code = 40.7 % 40.1-51.0 411) MEAN CORPUSCULAR VOLUME (BEAKER) 85.7 fL 79.0-92.2 (test code = 753) MEAN CORPUSCULAR HEMOGLOBIN 26.7 pg 25.7-32.2 (BEAKER) (test code = 751) MEAN CORPUSCULAR HEMOGLOBIN CONC 31.2 GM/DL 32.3-36.5 L (BEAKER) (test code = 752) RED CELL DISTRIBUTION WIDTH 17.1 % 11.6-14.4 H (BEAKER) (test code = 412) PLATELET COUNT (BEAKER) (test 157 K/CU MM 150-450 code = 756) MEAN PLATELET VOLUME (BEAKER) 10.6 fL 9.4-12.4 (test code = 754) NUCLEATED RED BLOOD CELLS 0 /100 WBC 0-0 (BEAKER) (test code = 413) NEUTROPHILS RELATIVE PERCENT 87 % (BEAKER) (test code = 429) LYMPHOCYTES RELATIVE PERCENT 8 % (BEAKER) (test code = 430) MONOCYTES RELATIVE PERCENT 3 % (BEAKER) (test code = 431) EOSINOPHILS RELATIVE PERCENT 1 % (BEAKER) (test code = 432) BASOPHILS RELATIVE PERCENT 1 % (BEAKER) (test code = 437) NEUTROPHILS ABSOLUTE COUNT 6.34 K/ L 1.78-5.38 H (BEAKER) (test code = 670) LYMPHOCYTES ABSOLUTE COUNT 0.58 K/ L 1.32-3.57 L (BEAKER) (test code = 414) MONOCYTES ABSOLUTE COUNT (BEAKER) 0.25 K/ L 0.30-0.82 L (test code = 415) EOSINOPHILS ABSOLUTE COUNT 0.07 K/ L 0.04-0.54 (BEAKER) (test code = 416) BASOPHILS ABSOLUTE COUNT (BEAKER) 0.04 K/ L 0.01-0.08 (test code = 417) IMMATURE GRANULOCYTES-RELATIVE 0 % 0-1 PERCENT (BEAKER) (test code = 2801) Prepare Leuko-Red [id number] 12:57:00 Test Item Value Reference Range Interpretation Comments CROSSMATCH (test code = 2264) COMPATIBLE Unit ABO (test code = A Pos 9506168) UNIT NUMBER (test code = [id number] 934-0) Status (test code = 5784053) READY Blood Bank Product (test code RED BLOOD CELLS = 2263) PRODUCT CODE (test code = C0760L74 933-2) [facility] [id number] 11:45:00 Test Item Value Reference Range Interpretation Comments pH, Arterial (test code 7.41 7.35-7.45 = 2744-1) pCO2, Arterial (test 38 See_Comment [Autom ated code = 2019-8) message] The system which generated this result transmitted reference range : 35 - 45 mm Hg. The reference range was not used to interpret this result as normal/abnormal . pO2, Arterial (test 192 See_Comment H [Automa chilango code = 2703-7) message] The system which generated this result transmitted reference range : 80 - 90 mm Hg. The reference range was not used to interpret this result as normal/abnormal . O2 Sat, Arterial (test 99.3 % 96.0-97.0 H code = 2708-6) HCO3, Arterial (test 23 mmol/L 21-29 code = 1960-4) Base Excess, Arterial -1.2 mmol/L -2.0-3.0 (test code = 1925-7) Patient Temperature 36.9 (test code = 8310-5) FIO2 (test code = 1819) 60 Lab Interpretation Abnormal (test code = 45709-4) [facility]Stat [id number] 11:45:00 Test Item Value Reference Range Interpretation Comments Hemoglobin (test code = 13.2 See_Comment [Au tomated message] 786-4) The system [employer] generated this result transmitted ref erence range: 13.0 - 1 6.8 GM/DL. The refe rence range was not u sed to interpret this result as normal/abnor mal. Hematocrit (test code = 39.0 % 40.0-50.0 L 4544-3) Lab Interpretation (test Abnormal code = 17060-2) [facility] [id number] 11:45:00 Test Item Value Reference Range Interpretation Comments Glucose (test code = 2345-7) 195 mg/dL 70-110 H Lab Interpretation (test code = Abnormal 88003-0) [facility] CenterBL[facility], [id number] 11:45:00 Test Item Value Reference Range Interpretation Comments PH ARTERIAL (BEAKER) (test code = 7.41 7.35-7.45 383) PCO2 ARTERIAL (BEAKER) (test code 38 mm Hg 35-45 = 384) PO2 ARTERIAL (BEAKER) (test code 192 mm Hg 80-90 H = 385) O2 SATURATION ARTERIAL (BEAKER) 99.3 % 96.0-97.0 H (test code = 386) HCO3 ARTERIAL (BEAKER) (test code 23 mmol/L 21-29 = 388) BASE EXCESS ARTERIAL (BEAKER) -1.2 mmol/L -2.0-3.0 (test code = 387) PATIENT TEMPERATURE (BEAKER) 36.9 (test code = 1818) FIO2 (BEAKER) (test code = 1819) 60.0 GLUCOSE-STAT [id number] 11:45:00 Test Item Value Reference Range Interpretation Comments GLUCOSE RANDOM (BEAKER) (test code 195 mg/dL 70-110 H = 652) HGB/HCT (H&H) - STAT [id number] 11:45:00 Test Item Value Reference Range Interpretation Comments HEMOGLOBIN (BEAKER) (test code = 13.2 GM/DL 13.0-16.8 410) HEMATOCRIT (BEAKER) (test code = 39.0 % 40.0-50.0 L 411) HEMATOCRIT-STAT [id number] 11:44:00 Test Item Value Reference Range Interpretation Comments Hematocrit (test code = 4544-3) 39.0 % 40.0-50.0 L Lab Interpretation (test code = Abnormal 04927-1) [facility] [id number] 11:44:00 Test Item Value Reference Range Interpretation Comments Sodium (test code = 2951-2) 137 meq/L 136-145 Lab Interpretation (test code = Normal 09683-9) [facility] [id number] 11:44:00 Test Item Value Reference Range Interpretation Comments Potassium (test code = 2823-3) 4.9 meq/L 3.6-5.5 Lab Interpretation (test code = Normal 21364-3) [facility] [id number] 11:44:00 Test Item Value Reference Range Interpretation Comments SODIUM (BEAKER) (test code = 381) 137 meq/L 136-145 POTASSIUM-STAT [id number] 11:44:00 Test Item Value Reference Range Interpretation Comments POTASSIUM (BEAKER) (test code = 4.9 meq/L 3.6-5.5 379) CALCIUM, [id number] 11:44:00 Test Item Value Reference Range Interpretation Comments CALCIUM IONIZED (BEAKER) (test 1.11 mmol/L 1.12-1.27 L code = 698) PH, BLOOD (BEAKER) (test code = 7.41 1810) BLOOD GAS, [id number] 11:44:00 Test Item Value Reference Range Interpretation Comments PH ARTERIAL (BEAKER) (test code = 7.41 7.35-7.45 383) PCO2 ARTERIAL (BEAKER) (test code 38 mm Hg 35-45 = 384) PO2 ARTERIAL (BEAKER) (test code 192 mm Hg 80-90 H = 385) O2 SATURATION ARTERIAL (BEAKER) 99.3 % 96.0-97.0 H (test code = 386) HCO3 ARTERIAL (BEAKER) (test code 23 mmol/L 21-29 = 388) BASE EXCESS ARTERIAL (BEAKER) -1.2 mmol/L -2.0-3.0 (test code = 387) PATIENT TEMPERATURE (BEAKER) 36.9 (test code = 1818) FIO2 (BEAKER) (test code = 1819) 60.0 GLUCOSE-STAT [id number] 11:44:00 Test Item Value Reference Range Interpretation Comments GLUCOSE RANDOM (BEAKER) (test code 195 mg/dL 70-110 H = 652) HGB/HCT (H&H) - STAT [id number] 11:44:00 Test Item Value Reference Range Interpretation Comments HEMOGLOBIN (BEAKER) (test code = 13.2 GM/DL 13.0-16.8 410) HEMATOCRIT (BEAKER) (test code = 39.0 % 40.0-50.0 L 411) HEMATOCRIT-STAT [id number] 11:44:00 Test Item Value Reference Range Interpretation Comments HEMATOCRIT (BEAKER) (test code = 411) 39.0 % 40.0-50.0 L Hemoglobin-Stat [id number] 11:43:00 Test Item Value Reference Range Interpretation Comments Hemoglobin (test code = 13.2 See_Comment [Au tomated message] 786-4) The system [employer] generated this result transmitted ref erence range: 13.0 - 1 6.8 GM/DL. The refe rence range was not u sed to interpret this result as normal/abnor mal. Lab Interpretation (test Normal code = 63402-9) [facility] [id number] 11:43:00 Test Item Value Reference Range Interpretation Comments SODIUM (BEAKER) (test code = 381) 137 meq/L 136-145 POTASSIUM-STAT [id number] 11:43:00 Test Item Value Reference Range Interpretation Comments POTASSIUM (BEAKER) (test code = 4.9 meq/L 3.6-5.5 379) HEMOGLOBIN-STAT [id number] 11:43:00 Test Item Value Reference Range Interpretation Comments HEMOGLOBIN (BEAKER) (test code = 13.2 GM/DL 13.0-16.8 410) Type and screen, [id number] 09:25:00 Test Item Value Reference Range Interpretation Comments ABO/RH AUTOMATED (BEAKER) (test A POSITIVE code = 2260) Ab Scrn (test code = 890-4) NEGATIVE [facility] [id number] 08:38:00 Test Item Value Reference Range Interpretation Comments SODIUM (BEAKER) (test code = 381) 136 meq/L 136-145 POTASSIUM-STAT [id number] 08:38:00 Test Item Value Reference Range Interpretation Comments POTASSIUM (BEAKER) (test code = 4.3 meq/L 3.6-5.5 379) HGB/HCT (H&H) - STAT [id number] 08:38:00 Test Item Value Reference Range Interpretation Comments HEMOGLOBIN (BEAKER) (test code = 13.7 GM/DL 13.0-16.8 410) HEMATOCRIT (BEAKER) (test code = 40.0 % 40.0-50.0 411) BLOOD GAS, [id number] 08:38:00 Test Item Value Reference Range Interpretation Comments PH ARTERIAL (BEAKER) (test code = 7.49 7.35-7.45 H 383) PCO2 ARTERIAL (BEAKER) (test code 34 mm Hg 35-45 L = 384) PO2 ARTERIAL (BEAKER) (test code = 299 mm Hg 80-90 H 385) O2 SATURATION ARTERIAL (BEAKER) 99.7 % 96.0-97.0 H (test code = 386) HCO3 ARTERIAL (BEAKER) (test code 25 mmol/L 21-29 = 388) BASE EXCESS ARTERIAL (BEAKER) 2.3 mmol/L -2.0-3.0 (test code = 387) PATIENT TEMPERATURE (BEAKER) (test 36.5 code = 1818) FIO2 (BEAKER) (test code = 1819) 80.0 GLUCOSE-STAT [id number] 08:38:00 Test Item Value Reference Range Interpretation Comments GLUCOSE RANDOM (BEAKER) (test code 148 mg/dL 70-110 H = 652) CALCIUM, [id number] 08:34:00 Test Item Value Reference Range Interpretation Comments CALCIUM IONIZED (BEAKER) (test 1.18 mmol/L 1.12-1.27 code = 698) PH, BLOOD (BEAKER) (test code = 7.48 1810) POCT-GLUCOSE [id number] 06:19:00 Test Item Value Reference Range Interpretation Comments POC-GLUCOSE METER 149 mg/dL 70-110 H : TESTED A T [facility]20 (BEAKER) (test code = [place], 1538) [address]: Truck Driver Teamster/Techni bradford ID = [id number] for LEIDA MADRIGAL URINALYSIS W/ REFLEX URINE [id number] 13:38:00 Test Item Value Reference Range Interpretation Comments COLOR (BEAKER) (test code = 470) Yellow CLARITY (BEAKER) (test code = 469) Clear SPECIFIC GRAVITY UA (BEAKER) (test 1.022 1.001-1.035 code = 468) PH UA (BEAKER) (test code = 467) 6.0 5.0-8.0 PROTEIN UA (BEAKER) (test code = Negative Negative 464) GLUCOSE UA (BEAKER) (test code = Negative Negative 365) KETONES UA (BEAKER) (test code = Negative Negative 371) BILIRUBIN UA (BEAKER) (test code = Negative Negative 462) BLOOD UA (BEAKER) (test code = 461) Negative Negative NITRITE UA (BEAKER) (test code = Negative Negative 465) LEUKOCYTE ESTERASE UA (BEAKER) Negative Negative (test code = 466) UROBILINOGEN UA (BEAKER) (test code 0.2 mg/dL 0.2-1.0 = 463) RBC UA (BEAKER) (test code = 519) < /HPF WBC UA (BEAKER) (test code = 520) 1 /HPF BACTERIA (BEAKER) (test code = 517) None Seen MUCUS (BEAKER) (test code = 1574) Rare SQUAMOUS EPITHELIAL (BEAKER) (test < /HPF code = 516) CRYSTALS, URINE (BEAKER) (test code None Seen = 1521) SOURCE(BEAKER) (test code = 2795) 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 - [auto]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 - techALPHA FETOPROTEIN (AFP), TUMOR MARKER 2021-02-22 14:40:00 Test Item Value Reference Range Interpretation Comments ALPHA-FETOPROTEIN (BEAKER) (test 2.7 ng/mL <10.0 code = 1094) 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 - KELSIE MCOMPREHENSIVE METABOLIC [id number] 14:27:00 Test Item Value Reference Range Interpretation Comments TOTAL PROTEIN 7.4 gm/dL 6.0-8.3 (BEAKER) (test code = 770) ALBUMIN (BEAKER) 3.2 g/dL 3.5-5.0 L (test code = 1145) ALKALINE PHOSPHATASE 101 U/L 40-150 (BEAKER) (test code = 346) BILIRUBIN TOTAL 1.1 mg/dL 0.2-1.2 (BEAKER) (test code = 377) SODIUM (BEAKER) (test 137 meq/L 136-145 code = 381) POTASSIUM (BEAKER) 4.4 meq/L 3.5-5.1 (test code = 379) CHLORIDE (BEAKER) 102 meq/L 98-107 (test code = 382) CO2 (BEAKER) (test 29 meq/L 22-29 code = 355) BLOOD UREA NITROGEN 12 mg/dL 7-21 (BEAKER) (test code = 354) CREATININE (BEAKER) 0.77 mg/dL 0.57-1.25 (test code = 358) GLUCOSE RANDOM 155 mg/dL 70-105 H (BEAKER) (test code = 652) CALCIUM (BEAKER) 9.8 mg/dL 8.4-10.2 (test code = 697) AST (SGOT) (BEAKER) 23 U/L 5-34 (test code = 353) ALT (SGPT) (BEAKER) 8 U/L 6-55 (test code = 347) EGFR (BEAKER) (test 100 ESTIMATE D GFR IS code = 1092) mL/min/1.73 sq NOT ACCURA TE m CREATININE CLEARANCE IN PREDICTING GLOMERULAR FILTRATION RATE . ESTIMATED GFR I S NOT APPLICABLE FOR DIALYSIS PATIEN TS. 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 - KELSIE MBILIRUBIN, [id number] 14:27:00 Test Item Value Reference Range Interpretation Comments BILIRUBIN DIRECT (BEAKER) (test 0.7 mg/dL 0.1-0.5 H code = 706) 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 - KELSIE MPROTHROMBIN TIME/[id number] 14:11:00 Test Item Value Reference Range Interpretation Comments PROTIME (BEAKER) 15.5 seconds 11.9-14.2 H (test code = 759) INR (BEAKER) (test 1.25 See_Comment [Automat ed message] code = 370) The system [employer] generated this result transmitted ref erence range: <=5.90. The reference range was not used to int erpret this result as normal/abnormal . RECOMMENDED COUMADIN/WARFARIN INR THERAPY RANGESSTANDARD DOSE: 2.0 - 3.0 Includes: PROPHYLAXIS forvenous thrombosis, systemic embolization; TREATMENT for venous thrombosis and/or pulmonary embolus.HIGH RISK: Target INR is 2.5-3.5 for patients with mechanical heart valves.CBC W/PLT COUNT & AUTO DIFFERENTIAL 2021-02-22 14:10:00 Test Item Value Reference Range Interpretation Comments WHITE BLOOD CELL COUNT (BEAKER) 4.2 K/ L 3.5-10.5 (test code = 775) RED BLOOD CELL COUNT (BEAKER) 5.03 M/ L 4.63-6.08 (test code = 761) HEMOGLOBIN (BEAKER) (test code = 13.3 GM/DL 13.7-17.5 L 410) HEMATOCRIT (BEAKER) (test code = 42.2 % 40.1-51.0 411) MEAN CORPUSCULAR VOLUME (BEAKER) 83.9 fL 79.0-92.2 (test code = 753) MEAN CORPUSCULAR HEMOGLOBIN 26.4 pg 25.7-32.2 (BEAKER) (test code = 751) MEAN CORPUSCULAR HEMOGLOBIN CONC 31.5 GM/DL 32.3-36.5 L (BEAKER) (test code = 752) RED CELL DISTRIBUTION WIDTH 16.6 % 11.6-14.4 H (BEAKER) (test code = 412) PLATELET COUNT (BEAKER) (test 115 K/CU MM 150-450 L code = 756) MEAN PLATELET VOLUME (BEAKER) 10.1 fL 9.4-12.4 (test code = 754) NUCLEATED RED BLOOD CELLS 0 /100 WBC 0-0 (BEAKER) (test code = 413) NEUTROPHILS RELATIVE PERCENT 72 % (BEAKER) (test code = 429) LYMPHOCYTES RELATIVE PERCENT 15 % (BEAKER) (test code = 430) MONOCYTES RELATIVE PERCENT 8 % (BEAKER) (test code = 431) EOSINOPHILS RELATIVE PERCENT 5 % (BEAKER) (test code = 432) BASOPHILS RELATIVE PERCENT 1 % (BEAKER) (test code = 437) NEUTROPHILS ABSOLUTE COUNT 3.01 K/ L 1.78-5.38 (BEAKER) (test code = 670) LYMPHOCYTES ABSOLUTE COUNT 0.61 K/ L 1.32-3.57 L (BEAKER) (test code = 414) MONOCYTES ABSOLUTE COUNT (BEAKER) 0.33 K/ L 0.30-0.82 (test code = 415) EOSINOPHILS ABSOLUTE COUNT 0.20 K/ L 0.04-0.54 (BEAKER) (test code = 416) BASOPHILS ABSOLUTE COUNT (BEAKER) 0.03 K/ L 0.01-0.08 (test code = 417) IMMATURE GRANULOCYTES-RELATIVE 1 % 0-1 PERCENT (BEAKER) (test code = 2801) TISSUE [id number] 13:38:00Surgical Pathology Report Case: [id number] Authorizing Provider: Seth Denise MD Collected: 02/08/2021 03:48 PM Ordering Location: [facility] Endoscopy Received: 02/09/2021 09:00 AM Services Pathologist: Shirley Watson MD Specimen: Biopsy, Gastric, POLYP BX STOMACH POLYP, BIOPSY: - POLYPOID ANTRUM TYPE GASTRIC MUCOSA WITH FOVEOLAR HYPERPLASIA AND MARKED REACTIVE CHANGE - NO HELICOBACTER PYLORI MICROORGANISMS IDENTIFIED CC/pl Signing Pathologist Direct Phone Line: [phone] signed by Shirley Watson MD on 02/10/2021 at 1:38 [id number], [id number] varices without bleedingA. StomachA. Received in formalin labeled with the patient's name, medical record number and "biopsy, gastric" and consists of 1 kwon-brown tissue fragment that is 0.4 x 0.3 x 0.2 cm submitted in toto in A1.Kirk Tijerina, [id number].A. No Helicobacter pylori microorganism is identified by Warthin-starry stain. The interpretation of this case included the use of immunohistochemistry or special stains.Control Slides Examined: In-house known positive controls were evaluated along with the test tissue. These control slides run alongside of the patients sample show appropriatestaining. Internal positive and negative controls when available are evaluated Immunohistochemistry technical testing was performed at [facility], Pathology Laboratory where it was developed and its performance characteristics were determined. It has not been cleared or approved by the U.S. Food and Drug Administration. The FDA has determined that such clearance or approval is not necessary. The test is used for clinical purposes. It should not be regarded as investigational orfor research. This laboratory is certified under the Clinical Laboratory Improvement Amendments of 1988 (CLIA-88) as qualified to perform high complexity clinical laboratory testing.POCT-GLUCOSE [id number] 14:14:00 Test Item Value Reference Range Interpretation Comments POC-GLUCOSE METER 136 mg/dL 70-110 H : TESTED [facility] 6720 (SEAN) (test code [facility], = 1538) 48448: Truck Driver Teamster/Techni bradford ID = [id number] for ANNMARIE SHAH HEPATITIS B PCR, [id number] 21:06:00 Test Item Value Reference Range Interpretation Comments HBV RESULT COMPONENT HBV DNA not detected HBV DNA not detected (SEAN) (test code = 2701) This test uses a Real-Time Polymerase Chain Reaction (RT-PCR) methodology and was performed using CHON AmpliPrep/CHON TaqMan HBV Test, v2.0 ([employer]Reportable range for this assay is 20 - 170,000,000 IU per mL (1.30 - 8.23 Log IU/mL).MR, ABDOMEN, [id number] 18:51:00Include Abdominal VesselsUnlisted Reason for Exam - Click Yes and Enter Reason Below->YesUnlistedReason for Exam->awaiting organ transplant, screening for cancerM[facility] : 1950 Sex: MFINAL REPORT TECHNIQUE: MRI of the abdomen WITHOUT and WITH intrave nous contrast. INDICATION: Unlisted Reason for Examawaiting organ transplant, screening for cancer. COMPARISON: MRI of the abdomen dated 06/10/2020. FINDINGS: LOWER THORAX: Unremarkable. LIVER: Nodularhepatic contour compatible with cirrhosis.. There are scattered, wedge-shaped arterial enhancing observations along the periphery of the liver on the annotated images from series 18 which do not demonstrate washout or capsule (LI-RADS 3.. BILIARY: Multiple gallstones within the gallbladder lumen. There is irregular wall thickening of the gallbladder without gallbladder dilation. There is pneumobiliarelated to prior sphincterotomy. No biliary duct dilation.. SPLEEN: 19 cm splenomegaly.. PANCREAS: No focal masses or ductal dilatation. ADRENALS: No adrenal nodules. KIDNEYS/URETERS: No hydronephrosisor solid mass lesions. Multiple T2 hyperintense, nonenhancing simple cysts in both kidneys. PERITONEU M/RETROPERITONEUM: Trace perihepatic ascites.. LYMPH NODES: Prominent portacaval and periportal nodes measuring up to 1.7 cm (image 76, series 19), likely reactive in the setting of cirrhosis. VESSELS:The portal vein measures 1.4 cm in diameter and is patent. There are perisplenic collaterals with splenorenal shunt and esophageal varices. Recanalized umbilical vein. GI TRACT: No distention or wall thickening. Small sliding hiatal hernia. BONES AND SOFT TISSUES: Multilevel degenerative changes of the lumbar spine most pronounced at L4-L5 and L5-S1. Mild bilateral gynecomastia.. IMPRESSION: Cirrhotic liver morphology with sequela of portal hypertension including splenomegaly, trace ascites, and eso phageal varices. A few scattered wedge-shaped arterial enhancing observations along the periphery without washout or capsule (LI-RADS 3). No suspicious liver observations. Cholelithiasis with irregularwall thickening of the gallbladder may reflect chronic cholecystitis. Signed: Lalito Archibald Verified Date/Time: 01/05/2021 18:51:57 Reading Location: [address] Reading Room COMPREHENSIVE METABOLIC [id number] 14:48:00 Test Item Value Reference Range Interpretation Comments TOTAL PROTEIN 7.4 gm/dL 6.0-8.3 Specimen sligh tly (BEAKER) (test code = hemoly zed 770) ALBUMIN (BEAKER) 3.4 g/dL 3.5-5.0 L Specimen sl ightly (test code = 1145) hemolyzed ALKALINE PHOSPHATASE 96 U/L 40-150 (BEAKER) (test code = 346) BILIRUBIN TOTAL 0.8 mg/dL 0.2-1.2 Specimen sli ghtly (BEAKER) (test code = hemoly zed 377) SODIUM (BEAKER) (test 139 meq/L 136-145 code = 381) POTASSIUM (BEAKER) 4.9 meq/L 3.5-5.1 Specimen slightly (test code = 379) hemolyzed CHLORIDE (BEAKER) 103 meq/L 98-107 (test code = 382) CO2 (BEAKER) (test 31 meq/L 22-29 H code = 355) BLOOD UREA NITROGEN 14 mg/dL 7-21 (BEAKER) (test code = 354) CREATININE (BEAKER) 0.78 mg/dL 0.57-1.25 Specimen slightly (test code = 358) hemolyzed GLUCOSE RANDOM 218 mg/dL 70-105 H (BEAKER) (test code = 652) CALCIUM (BEAKER) 9.2 mg/dL 8.4-10.2 (test code = 697) AST (SGOT) (BEAKER) 30 U/L 5-34 Specimen slightly (test code = 353) hemolyzed ALT (SGPT) (BEAKER) 19 U/L 6-55 Specimen slightly (test code = 347) hemolyzed EGFR (BEAKER) (test 99 mL/min/1.73 ESTIMA CHILANGO GFR IS code = 1092) sq m NOT ACCURATE CREATININE CLEARANCE IN PREDICTING GLOMERULAR FILTRATION RATE . ESTIMATED GFR I S NOT APPLICABLE FOR DIALYSIS PATIEN TS. 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 - RMBILIRUBIN, [id number] 14:48:00 Test Item Value Reference Range Interpretation Comments BILIRUBIN DIRECT 0.4 mg/dL 0.1-0.5 Specimen sl ightly (BEAKER) (test code = hemoly zed 706) 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 - RMPROTHROMBIN [id number] 14:39:00 Test Item Value Reference Range Interpretation Comments PROTIME (BEAKER) 15.2 seconds 11.9-14.2 H (test code = 759) INR (BEAKER) (test 1.25 See_Comment [Automat ed message] code = 370) The system avocadostore generated this result transmitted ref erence range: <=5.90. The reference range was not used to int erpret this result as normal/abnormal . Effective 02/05/2019: PT Reference Range ChangeNew: 11.9-14.2 Previous: 11.7- 14.7RECOMMENDED COUMADIN/WARFARIN INR THERAPY RANGESSTANDARD DOSE: 2.0-3.0 Includes: PROPHYLAXIS for venous thrombosis, systemic embolization; TREATMENT for venous thrombosis and/or pulmonary embolus.HIGH RISK: Target INR is2.5-3.5 for patients wiht mechanical heart valves.CBC W/PLT COUNT & AUTO [id number] 14:31:00 Test Item Value Reference Range Interpretation Comments WHITE BLOOD CELL COUNT (BEAKER) 2.8 K/ L 3.5-10.5 L (test code = 775) RED BLOOD CELL COUNT (BEAKER) 5.19 M/ L 4.63-6.08 (test code = 761) HEMOGLOBIN (BEAKER) (test code = 13.2 GM/DL 13.7-17.5 L 410) HEMATOCRIT (BEAKER) (test code = 42.5 % 40.1-51.0 411) MEAN CORPUSCULAR VOLUME (BEAKER) 81.9 fL 79.0-92.2 (test code = 753) MEAN CORPUSCULAR HEMOGLOBIN 25.4 pg 25.7-32.2 L (BEAKER) (test code = 751) MEAN CORPUSCULAR HEMOGLOBIN CONC 31.1 GM/DL 32.3-36.5 L (BEAKER) (test code = 752) RED CELL DISTRIBUTION WIDTH 17.6 % 11.6-14.4 H (BEAKER) (test code = 412) PLATELET COUNT (BEAKER) (test code 80 K/CU MM 150-450 L = 756) MEAN PLATELET VOLUME (BEAKER) 10.5 fL 9.4-12.4 (test code = 754) NUCLEATED RED BLOOD CELLS (BEAKER) 0 /100 WBC 0-0 (test code = 413) NEUTROPHILS RELATIVE PERCENT 63 % (BEAKER) (test code = 429) LYMPHOCYTES RELATIVE PERCENT 22 % (BEAKER) (test code = 430) MONOCYTES RELATIVE PERCENT 10 % (BEAKER) (test code = 431) EOSINOPHILS RELATIVE PERCENT 4 % (BEAKER) (test code = 432) BASOPHILS RELATIVE PERCENT 0 % (BEAKER) (test code = 437) NEUTROPHILS ABSOLUTE COUNT 1.75 K/ L 1.78-5.38 L (BEAKER) (test code = 670) LYMPHOCYTES ABSOLUTE COUNT 0.62 K/ L 1.32-3.57 L (BEAKER) (test code = 414) MONOCYTES ABSOLUTE COUNT (BEAKER) 0.28 K/ L 0.30-0.82 L (test code = 415) EOSINOPHILS ABSOLUTE COUNT 0.11 K/ L 0.04-0.54 (BEAKER) (test code = 416) BASOPHILS ABSOLUTE COUNT (BEAKER) 0.01 K/ L 0.01-0.08 (test code = 417) IMMATURE GRANULOCYTES-RELATIVE 0 % 0-1 PERCENT (BEAKER) (test code = 2801) TISSUE [id number] 16:30:00Surgical Pathology Report Case: [id number] Authorizing Provider: Seth Denise MD Collected: 10/22/2020 02:33 PM Ordering Location: [facility] Endoscopy Received: 10/25/2020 10:30 AM Services Pathologist: Fahad Chavez MD Specimen: Polyp, Colon - Right/Ascending, Ascending Colon Polyp with Cold Snare PART A RIGHT ASCENDING COLON POLYP, POLYPECTOMY:TUBULAR ADENOMA. Signing Pathologist Direct Phone Line: [phone] signed by Fahad Chavez MD on 10/26/2020 at 4:30 [id number] cholangitisColon cancer screeningEsophageal varices without bleeding, unspecified esophageal varices type Ascending colonReceived in formalin labeled the patient's name, accession number and "ascending colon polyp" is a 0.3 x 0.2 x 0.2 cm kwon-pink tissue fragment which is filtered and submitted in toto in A1.BRANDAN Cherry, HT (ASCP)Performed. [facility], Department of Pathology, [address] [place] [address], [facility], [facility] of [facility], [address] [place] [address], PkqumiC[facility], Department of Pathology, [address] [place], [place] [address], XV, [id number] 14:30:00Reason for exam:->Chalangitis [facility] : 1950 Sex: MFluoroscopic unit utilized for a procedure performed in the OR. No interpretation was requested. Refer to the operative report for findings. Refer to PACS for patient radiation dose information.POCT-GLUCOSE [id number] 12:05:00 Test Item Value Reference Range Interpretation Comments POC-GLUCOSE METER 189 mg/dL 70-110 H : TESTED A T [facility] 6720 (BEAKER) (test code = [place], 1538) [id number]: Truck Driver Teamster/Techni bradford ID = [id number] for KATIE PULIDO PERIPHERAL BLOOD SMEAR - PATHOLOGIST [id number] 15:06:00 Test Item Value Reference Range Interpretation Comments RBC MORPHOLOGY See comment Normochromic, (BEAKER) (test normocytic RB CS with code = 2846) mild anisopoikilocyt osis, including occas ional elliptocytes. Mild polychromasia. WBC MORPHOLOGY See comment Decreased. (BEAKER) (test Predominately code = 2847) comprised by neutrophils wit h unremarkable morphology. Lymphocytes wit h occasional reac tive forms. PLT MORPHOLOGY See comment Decreased wit h normal (BEAKER) (test granular morp hology. code = 2848) Occasional larg e and rare giant form s. No significant clumping/satell itosis . [id number] Tomi Ramos MD 112 (BEAKER) (test (electronic code = 2849) signature) ALPHA FETOPROTEIN (AFP), TUMOR [id number] 17:26:00 Test Item Value Reference Range Interpretation Comments ALPHA-FETOPROTEIN (BEAKER) (test 3.5 ng/mL <10.0 code = 1094) 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 - BSBASIC METABOLIC [id number] 13:24:00 Test Item Value Reference Range Interpretation Comments SODIUM (BEAKER) 137 meq/L 136-145 (test code = 381) POTASSIUM (BEAKER) 4.1 meq/L 3.5-5.1 (test code = 379) CHLORIDE (BEAKER) 100 meq/L 98-107 (test code = 382) CO2 (BEAKER) (test 29 meq/L 22-29 code = 355) BLOOD UREA NITROGEN 14 mg/dL 7-21 (BEAKER) (test code = 354) CREATININE (BEAKER) 1.00 mg/dL 0.57-1.25 (test code = 358) GLUCOSE RANDOM 304 mg/dL 70-105 H (BEAKER) (test code = 652) CALCIUM (BEAKER) 9.3 mg/dL 8.4-10.2 (test code = 697) EGFR (BEAKER) (test 74 mL/min/1.73 ESTIMA CHILANGO GFR IS code = 1092) sq m NOT ACCURATE CREATININE CLEARANCE IN PREDICTING GLOMERULAR FILTRATION RATE . ESTIMATED GFR I S NOT APPLICABLE FOR DIALYSIS PATIEN TS. 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 - KELSIE MHEPATIC FUNCTION [id number] 13:24:00 Test Item Value Reference Range Interpretation Comments TOTAL PROTEIN (BEAKER) (test code = 7.7 gm/dL 6.0-8.3 770) ALBUMIN (BEAKER) (test code = 1145) 3.7 g/dL 3.5-5.0 BILIRUBIN TOTAL (BEAKER) (test code 1.2 mg/dL 0.2-1.2 = 377) BILIRUBIN DIRECT (BEAKER) (test 0.5 mg/dL 0.1-0.5 code = 706) ALKALINE PHOSPHATASE (BEAKER) (test 74 U/L 40-150 code = 346) AST (SGOT) (BEAKER) (test code = 38 U/L 5-34 H 353) ALT (SGPT) (BEAKER) (test code = 27 U/L 6-55 347) 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 - KELSIE MPROTHROMBIN [id number] 12:56:00 Test Item Value Reference Range Interpretation Comments PROTIME (BEAKER) (test code = 14.8 seconds 11.9-14.2 H 759) INR (BEAKER) (test code = 370) 1.19 <=5.90 Effective 02/05/2019: PT Reference Range ChangeNew: 11.9-14.2 Previous: 11.7- 14.7RECOMMENDED COUMADIN/WARFARIN INR THERAPY RANGESSTANDARD DOSE: 2.0-3.0 Includes: PROPHYLAXIS for venous thrombosis, systemic embolization; TREATMENT for venous thrombosis and/or pulmonary embolus.HIGH RISK: Target INR is2.5-3.5 for patients wiht mechanical heart valves.CBC W/PLT COUNT & AUTO [id number] 12:50:00 Test Item Value Reference Range Interpretation Comments WHITE BLOOD CELL COUNT (BEAKER) 2.9 K/ L 3.5-10.5 L (test code = 775) RED BLOOD CELL COUNT (BEAKER) 4.81 M/ L 4.63-6.08 (test code = 761) HEMOGLOBIN (BEAKER) (test code = 13.7 GM/DL 13.7-17.5 410) HEMATOCRIT (BEAKER) (test code = 41.3 % 40.1-51.0 411) MEAN CORPUSCULAR VOLUME (BEAKER) 85.9 fL 79.0-92.2 (test code = 753) MEAN CORPUSCULAR HEMOGLOBIN 28.5 pg 25.7-32.2 (BEAKER) (test code = 751) MEAN CORPUSCULAR HEMOGLOBIN CONC 33.2 GM/DL 32.3-36.5 (BEAKER) (test code = 752) RED CELL DISTRIBUTION WIDTH 14.7 % 11.6-14.4 H (BEAKER) (test code = 412) PLATELET COUNT (BEAKER) (test code 75 K/CU MM 150-450 L = 756) MEAN PLATELET VOLUME (BEAKER) 11.0 fL 9.4-12.4 (test code = 754) NUCLEATED RED BLOOD CELLS (BEAKER) 0 /100 WBC 0-0 (test code = 413) NEUTROPHILS RELATIVE PERCENT 67 % (BEAKER) (test code = 429) LYMPHOCYTES RELATIVE PERCENT 20 % (BEAKER) (test code = 430) MONOCYTES RELATIVE PERCENT 9 % (BEAKER) (test code = 431) EOSINOPHILS RELATIVE PERCENT 4 % (BEAKER) (test code = 432) BASOPHILS RELATIVE PERCENT 1 % (BEAKER) (test code = 437) NEUTROPHILS ABSOLUTE COUNT 1.92 K/ L 1.78-5.38 (BEAKER) (test code = 670) LYMPHOCYTES ABSOLUTE COUNT 0.57 K/ L 1.32-3.57 L (BEAKER) (test code = 414) MONOCYTES ABSOLUTE COUNT (BEAKER) 0.26 K/ L 0.30-0.82 L (test code = 415) EOSINOPHILS ABSOLUTE COUNT 0.11 K/ L 0.04-0.54 (BEAKER) (test code = 416) BASOPHILS ABSOLUTE COUNT (BEAKER) 0.03 K/ L 0.01-0.08 (test code = 417) IMMATURE GRANULOCYTES-RELATIVE 0 % 0-1 PERCENT (BEAKER) (test code = 2801) BLOOD [id number] 14:00:00 Test Item Value Reference Range Interpretation Comments CULTURE (BEAKER) (test No growth in 5 days code = 1095) BLOOD [id number] 14:00:00 Test Item Value Reference Range Interpretation Comments CULTURE (BEAKER) (test No growth in 5 days code = 1095) TISSUE [id number] 07:46:00Surgical Pathology Report Case: [id number] Authorizing Provider: Irina Yañez MD Collected: 08/31/2020 09:57 AM Ordering Location: [address] Received: 08/31/2020 01:40 PM Service Pathologist: Fahad Chavez MD Specimen: Stomach, Randm Bx PART A RANDOM GASTRIC BIOPSY:ANTRAL AND OXYNTIC MUCOSA WITH NONSPECIFIC REACTIVE GASTROPATHY.NEGATIVE FOR INTESTINAL METAPLASIA, DYSPLASIA, OR INVASIVE CARCINOMA.WARTHIN STARRY STAIN FOR HELICOBACTER IS NEGATIVE. Signing Pathologist Direct Phone Line: [phone] signed by Fahad Chavez MDon 09/01/2020 at 7:46 [id number]. Received in formalin labeled with the patient's name, medical record number and "stomach" and consists of multiple kwon soft tissue fragments ranging 0.1-0.3 cm submitted in toto in A1.BRITNEY Rodriguez, BRANDAN (ASCP)cmPerformed. The interpretation ofthis case included the use of immunohistochemistry or special stains.BLOCK A1- WARTHIPratima STARRYControlSlides Examined: In-house known positive controls were evaluated along with the test tissue. Thesecontrol slides run alongside of the patients sample show appropriate staining. Internal positive andnegative controls when available are evaluated Immunohistochemistry technical testing was performed at [facility], Pathology Laboratory where it was developed and its performance characteristics were determined. It has not been cleared or approved by the U.S. Food and Drug Administration. The FDA has determined that such clearance or approval is not necessary. The test is used for clinical purposes. It should not be regarded as investigational or for research. This laboratory is certified under the Clinical Laboratory Improvement Amendments of 1988 (CLIA-88) as qualified to perform high complexity clinical laboratory testing.[facility], Department of Pathology, [address] [place] [address], [facility]gexmvC[facility], Department of Pathology, [address] [place] [address], SbfxifCanyon Ridge Hospital, Department of Pathology, [address] [place] [address], [id number] 05:58:00 Test Item Value Reference Range Interpretation Comments FERRITIN (BEAKER) (test code = 71.89 ng/mL 5.00-275.00 361) 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 - KELSIE MVITAMIN B12 AND [id number] 05:58:00 Test Item Value Reference Range Interpretation Comments VITAMIN B12 (BEAKER) (test code = 538 pg/mL 213-816 774) FOLATE (BEAKER) (test code = 362) 8.70 ng/mL >=7.00 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 Boo IGLESIAS LALO, TIBC, % SAT. (WITHOUT FERRITIN)2020-09-01 05:43:00 Test Item Value Reference Range Interpretation Comments IRON (BEAKER) (test code = 547) 64.0 ug/dL 40.0-160.0 TOTAL IRON BINDING CAPACITY 346 ug/dL 250-450 (BEAKER) (test code = 769) IRON % SATURATION (2) (BEAKER) 18 % 20-55 L (test code = 2590) Truck Driver Teamster ZI IGLESIAS MBASIC METABOLIC [id number] 05:11:00 Test Item Value Reference Range Interpretation Comments SODIUM (BEAKER) 140 meq/L 136-145 (test code = 381) POTASSIUM (BEAKER) 4.0 meq/L 3.5-5.1 (test code = 379) CHLORIDE (BEAKER) 107 meq/L 98-107 (test code = 382) CO2 (BEAKER) (test 25 meq/L 22-29 code = 355) BLOOD UREA NITROGEN 17 mg/dL 7-21 (BEAKER) (test code = 354) CREATININE (BEAKER) 0.79 mg/dL 0.57-1.25 (test code = 358) GLUCOSE RANDOM 157 mg/dL 70-105 H (BEAKER) (test code = 652) CALCIUM (BEAKER) 9.0 mg/dL 8.4-10.2 (test code = 697) EGFR (BEAKER) (test 98 mL/min/1.73 ESTIMA CHILANGO GFR IS code = 1092) sq m NOT ACCURATE CREATININE CLEARANCE IN PREDICTING GLOMERULAR FILTRATION RATE . ESTIMATED GFR I S NOT APPLICABLE FOR DIALYSIS PATIEN TS. 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 - KELSIE [id number] 05:11:00 Test Item Value Reference Range Interpretation Comments MAGNESIUM (BEAKER) (test code = 1.3 mg/dL 1.6-2.6 L 627) 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 - KELSIE [id number] 05:11:00 Test Item Value Reference Range Interpretation Comments PHOSPHORUS (BEAKER) (test code = 3.1 mg/dL 2.3-4.7 604) 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 - KELSIE MCALCIUM, [id number] 04:52:00 Test Item Value Reference Range Interpretation Comments CALCIUM IONIZED (BEAKER) (test 1.22 mmol/L 1.12-1.27 code = 698) PH, BLOOD (BEAKER) (test code = 7.38 1810) CBC W/PLT COUNT & AUTO [id number] 04:36:00 Test Item Value Reference Range Interpretation Comments WHITE BLOOD CELL COUNT (BEAKER) 3.2 K/ L 3.5-10.5 L (test code = 775) RED BLOOD CELL COUNT (BEAKER) 4.20 M/ L 4.63-6.08 L (test code = 761) HEMOGLOBIN (BEAKER) (test code = 12.5 GM/DL 13.7-17.5 L 410) HEMATOCRIT (BEAKER) (test code = 37.9 % 40.1-51.0 L 411) MEAN CORPUSCULAR VOLUME (BEAKER) 90.2 fL 79.0-92.2 (test code = 753) MEAN CORPUSCULAR HEMOGLOBIN 29.8 pg 25.7-32.2 (BEAKER) (test code = 751) MEAN CORPUSCULAR HEMOGLOBIN CONC 33.0 GM/DL 32.3-36.5 (BEAKER) (test code = 752) RED CELL DISTRIBUTION WIDTH 14.7 % 11.6-14.4 H (BEAKER) (test code = 412) PLATELET COUNT (BEAKER) (test code 64 K/CU MM 150-450 L = 756) MEAN PLATELET VOLUME (BEAKER) 10.5 fL 9.4-12.4 (test code = 754) NUCLEATED RED BLOOD CELLS (BEAKER) 0 /100 WBC 0-0 (test code = 413) NEUTROPHILS RELATIVE PERCENT 56 % (BEAKER) (test code = 429) LYMPHOCYTES RELATIVE PERCENT 28 % (BEAKER) (test code = 430) MONOCYTES RELATIVE PERCENT 10 % (BEAKER) (test code = 431) EOSINOPHILS RELATIVE PERCENT 6 % (BEAKER) (test code = 432) BASOPHILS RELATIVE PERCENT 1 % (BEAKER) (test code = 437) NEUTROPHILS ABSOLUTE COUNT 1.76 K/ L 1.78-5.38 L (BEAKER) (test code = 670) LYMPHOCYTES ABSOLUTE COUNT 0.88 K/ L 1.32-3.57 L (BEAKER) (test code = 414) MONOCYTES ABSOLUTE COUNT (BEAKER) 0.31 K/ L 0.30-0.82 (test code = 415) EOSINOPHILS ABSOLUTE COUNT 0.18 K/ L 0.04-0.54 (BEAKER) (test code = 416) BASOPHILS ABSOLUTE COUNT (BEAKER) 0.02 K/ L 0.01-0.08 (test code = 417) IMMATURE GRANULOCYTES-RELATIVE 0 % 0-1 PERCENT (BEAKER) (test code = 2801) U/S, ABDOMINAL, WITH [id number] 16:26:00Reason for exam:->doppler to r/o portal vein thrombosis [facility] : 1950 Sex: MFINAL REPORT TECHNIQUE: Grayscale ultrasound of the abdomen with color Doppler and spectral Doppler ultrasound of the portal/hepatic vasculature. INDICATION: Hematemesis with nausea, melena, Rule out portal vein thrombosis. COMPARISON: 07/22/2020. FINDINGS: LIVER: Liver demonstrates coarse echotexture with nodular contour. Liver measures 14 cm in length.. No focal liver lesions. HEPATIC VASCULATURE: Main portal vein measures 0.8 cm in diameter. Portal veins are patent with normal waveform and directionality. There is mildly decreased flow velocity in the main portal vein at 13 cm/s.. The hepatic arteries are patent with normal flow velocities, resistive indices, and waveforms. Resistive indices of the proper, right and left hepatic arteries are 0.7, 0.6 and 0.6, respectively. The hepatic veins and confluence are patent. BILIARY:Gallbladder: No gallstones or sludge. No gallbladder wall thickening, pericholecystic fluid, or distention. Negative sonographic Barker sign.Common bile duct measures 0.2 cm, within normal limits. No intrahepatic biliary ductal dilatation. PANCREAS: Incompletely visualized due to overlying bowel gas. SPLEEN: Spleen is enlarged measuring 16 cm in length.. PERITONEUM: No free fluid. KIDNEYS: Both kidneys are normal in size. Right kidney measures 11.4 cm. Left kidney measures 12.9 cm. No hydronephrosis. No sonographically evident solidmass lesion. MIDLINE VASCULATURE: The visualized inferior vena cava is patent. The maximum visualized aortic diameter is 2.4 cm. Splenic artery and vein are patent. IMPRESSION:Cirrhosis with sequela portal hypertension. Patent hepatic vasculature with normal directional flow. Decreased flow velocityin the main portal vein likely related to sequela portal hypertension. No evidence of portal vein thrombosis. Cholelithiasis. Signed: [facility] Verified Date/Time: 08/31/2020 16:26:46 POCT-GLUCOSE [id number] 10:47:00 Test Item Value Reference Range Interpretation Comments POC-GLUCOSE METER 157 mg/dL 70-110 H : Notified RN/MD: ([facility]) (test code = TESTED AT [facility] 6720 1538) [facility], [address]: Truck Driver Teamster/Techni bradford ID = [id number] for Debra Petersen POCT-GLUCOSE [id number] 09:57:00 Test Item Value Reference Range Interpretation Comments POC-GLUCOSE METER 167 mg/dL 70-110 H : TESTED A T [facility] 6720 ([facility]) (test code = [facility], 1538) [address]: Truck Driver Teamster/Techni bradford ID = [id number] for WINSOME MOJICA BASIC METABOLIC [id number] 04:48:00 Test Item Value Reference Range Interpretation Comments SODIUM (BEAKER) 136 meq/L 136-145 (test code = 381) POTASSIUM (BEAKER) 3.9 meq/L 3.5-5.1 (test code = 379) CHLORIDE (BEAKER) 105 meq/L 98-107 (test code = 382) CO2 (BEAKER) (test 25 meq/L 22-29 code = 355) BLOOD UREA NITROGEN 19 mg/dL 7-21 (BEAKER) (test code = 354) CREATININE (BEAKER) 0.75 mg/dL 0.57-1.25 (test code = 358) GLUCOSE RANDOM 145 mg/dL 70-105 H (BEAKER) (test code = 652) CALCIUM (BEAKER) 8.8 mg/dL 8.4-10.2 (test code = 697) EGFR (BEAKER) (test 104 mL/min/1.73 ESTIM ATED GFR IS code = 1092) sq m NOT ACCURATE CREATININE CLEARANCE IN PREDICTING GLOMERULAR FILTRATION RATE . ESTIMATED GFR I S NOT APPLICABLE FOR DIALYSIS PATIEN TS. 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 - KJ [id number] 04:48:00 Test Item Value Reference Range Interpretation Comments MAGNESIUM (BEAKER) (test code = 1.5 mg/dL 1.6-2.6 L 627) Truck Driver Teamster ZI UNDERWOOD [id number] 04:48:00 Test Item Value Reference Range Interpretation Comments PHOSPHORUS (BEAKER) (test code = 3.1 mg/dL 2.3-4.7 604) Truck Driver Teamster ZI UNDERWOOD LCALCIUM, [id number] 04:27:00 Test Item Value Reference Range Interpretation Comments CALCIUM IONIZED (BEAKER) (test 1.18 mmol/L 1.12-1.27 code = 698) PH, BLOOD (BEAKER) (test code = 7.40 1810) CBC W/PLT COUNT & AUTO [id number] 04:17:00 Test Item Value Reference Range Interpretation Comments WHITE BLOOD CELL COUNT (BEAKER) 3.9 K/ L 3.5-10.5 (test code = 775) RED BLOOD CELL COUNT (BEAKER) 4.43 M/ L 4.63-6.08 L (test code = 761) HEMOGLOBIN (BEAKER) (test code = 13.1 GM/DL 13.7-17.5 L 410) HEMATOCRIT (BEAKER) (test code = 39.5 % 40.1-51.0 L 411) MEAN CORPUSCULAR VOLUME (BEAKER) 89.2 fL 79.0-92.2 (test code = 753) MEAN CORPUSCULAR HEMOGLOBIN 29.6 pg 25.7-32.2 (BEAKER) (test code = 751) MEAN CORPUSCULAR HEMOGLOBIN CONC 33.2 GM/DL 32.3-36.5 (BEAKER) (test code = 752) RED CELL DISTRIBUTION WIDTH 14.8 % 11.6-14.4 H (BEAKER) (test code = 412) PLATELET COUNT (BEAKER) (test code 73 K/CU MM 150-450 L = 756) MEAN PLATELET VOLUME (BEAKER) 10.2 fL 9.4-12.4 (test code = 754) NUCLEATED RED BLOOD CELLS (BEAKER) 0 /100 WBC 0-0 (test code = 413) NEUTROPHILS RELATIVE PERCENT 52 % (BEAKER) (test code = 429) LYMPHOCYTES RELATIVE PERCENT 31 % (BEAKER) (test code = 430) MONOCYTES RELATIVE PERCENT 10 % (BEAKER) (test code = 431) EOSINOPHILS RELATIVE PERCENT 6 % (BEAKER) (test code = 432) BASOPHILS RELATIVE PERCENT 1 % (BEAKER) (test code = 437) NEUTROPHILS ABSOLUTE COUNT 2.00 K/ L 1.78-5.38 (BEAKER) (test code = 670) LYMPHOCYTES ABSOLUTE COUNT 1.19 K/ L 1.32-3.57 L (BEAKER) (test code = 414) MONOCYTES ABSOLUTE COUNT (BEAKER) 0.39 K/ L 0.30-0.82 (test code = 415) EOSINOPHILS ABSOLUTE COUNT 0.23 K/ L 0.04-0.54 (BEAKER) (test code = 416) BASOPHILS ABSOLUTE COUNT (BEAKER) 0.04 K/ L 0.01-0.08 (test code = 417) IMMATURE GRANULOCYTES-RELATIVE 0 % 0-1 PERCENT (BEAKER) (test code = 2801) SARS-COV2/RT-PCR ([facility])2020-08-30 17:47:00 Test Item Value Reference Range Interpretation Comments SARS-COV2/RT-PCR (test Negative Not Detected, Negative, code = 2820755) See external report for linked test SARS-COV-[address] [facility] (test code = 8232285) Negative result for this test determines that SARS-CoV-2 RNA was not present in the specimen above the Limit of Detection (LOD). However, Negative results do not preclude SARS-CoV-2 infection and should not be used as the sole basis for treatment or patient management decisions. Negative results mustbe combined with clinical observations, patient history, and epidemiological information. A false negative result may occur if a specimen is improperly collected, transported or handled. A false negative result should be considered if patient's recent exposures or clinical presentation indicate that COVID-19 (SARS-CoV-2) is likely and diagnostic tests for other causes of illness are negative. Re-testing should be considered in cases of suspected false negatives.The limit of detection for this assay is 800 copies/mL.This SARS CoV-2 test is a real-time RT-PCR test intended for the qualitative detection of nucleic acid from SARS-CoV-2 in a nasopharyngeal swab specimen collected from individuals susp ected of COVID-19 by their healthcare provider.This test has not been Food and Drug Administration (FDA) cleared or approved. This is a modified version of an approved Emergency Use Authorization (EUA) and is in the process of review by the FDA. Once authorized by the FDA, the issued EUA will be effective until the declaration that circumstances exist justifying the authorization of the emergency use of in vitro diagnostic tests for detection and/or diagnosis of COVID-19 is terminated under Section 564(b)(2) of the Act or the EUA is revoked under Section 564(g) of the Act.Fact Sheet for Healthcare Providers:https://www.[employer]/sites/default/files/product/documents/Fact_Shee b_PV_Mjsneihnj_Awku_FLHK-HnJ-3.pdfFact Sheet for Healthcare Patients:https://www.[employer]/sites/default/files/product/ documents/Mwli_Wwcka_Hzmavyck_Iyyp_SWEO-XgD-0.pdfPerforming Laboratory:[place] [address] [place], [place] [address]TEVDKWEFHZQ TIME/INR 2020-08-30 13:43:00 Test Item Value Reference Range Interpretation Comments PROTIME (BEAKER) (test code = 14.9 seconds 11.9-14.2 H 759) INR (BEAKER) (test code = 370) 1.22 <=5.90 Effective 02/05/2019: PT Reference Range ChangeNew: 11.9-14.2 Previous: 11.7- 14.7RECOMMENDED COUMADIN/WARFARIN INR THERAPY RANGESSTANDARD DOSE: 2.0-3.0 Includes: PROPHYLAXIS for venous thrombosis, systemic embolization; TREATMENT for venous thrombosis and/or pulmonary embolus.HIGH RISK: Target INR is2.5-3.5 for patients wiht mechanical heart valves.COMPREHENSIVE METABOLIC PANEL 2020-08-30 13:03:00 Test Item Value Reference Range Interpretation Comments TOTAL PROTEIN 7.7 gm/dL 6.0-8.3 Specimen sligh tly (BEAKER) (test code = hemoly zed 770) ALBUMIN (BEAKER) 3.7 g/dL 3.5-5.0 Specimen sl ightly (test code = 1145) hemolyzed ALKALINE PHOSPHATASE 70 U/L 40-150 (BEAKER) (test code = 346) BILIRUBIN TOTAL 1.9 mg/dL 0.2-1.2 H Specimen sli ghtly (BEAKER) (test code = hemoly zed 377) SODIUM (BEAKER) (test 138 meq/L 136-145 code = 381) POTASSIUM (BEAKER) 4.7 meq/L 3.5-5.1 Specimen slightly (test code = 379) hemolyzed CHLORIDE (BEAKER) 103 meq/L 98-107 (test code = 382) CO2 (BEAKER) (test 29 meq/L 22-29 code = 355) BLOOD UREA NITROGEN 26 mg/dL 7-21 H (BEAKER) (test code = 354) CREATININE (BEAKER) 0.74 mg/dL 0.57-1.25 Specimen slightly (test code = 358) hemolyzed GLUCOSE RANDOM 166 mg/dL 70-105 H (BEAKER) (test code = 652) CALCIUM (BEAKER) 9.7 mg/dL 8.4-10.2 (test code = 697) AST (SGOT) (BEAKER) 38 U/L 5-34 H Specimen slightly (test code = 353) hemolyzed ALT (SGPT) (BEAKER) 29 U/L 6-55 Specimen slightly (test code = 347) hemolyzed EGFR (BEAKER) (test 105 ESTIMATE D GFR IS code = 1092) mL/min/1.73 sq NOT ACCURA TE m CREATININE CLEARANCE IN PREDICTING GLOMERULAR FILTRATION RATE . ESTIMATED GFR I S NOT APPLICABLE FOR DIALYSIS PATIEN TS. 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 - [place] FCBC W/PLT COUNT & AUTO [id number] 12:55:00 Test Item Value Reference Range Interpretation Comments WHITE BLOOD CELL COUNT (BEAKER) 5.2 K/ L 3.5-10.5 (test code = 775) RED BLOOD CELL COUNT (BEAKER) 5.20 M/ L 4.63-6.08 (test code = 761) HEMOGLOBIN (BEAKER) (test code = 15.6 GM/DL 13.7-17.5 410) HEMATOCRIT (BEAKER) (test code = 46.4 % 40.1-51.0 411) MEAN CORPUSCULAR VOLUME (BEAKER) 89.2 fL 79.0-92.2 (test code = 753) MEAN CORPUSCULAR HEMOGLOBIN 30.0 pg 25.7-32.2 (BEAKER) (test code = 751) MEAN CORPUSCULAR HEMOGLOBIN CONC 33.6 GM/DL 32.3-36.5 (BEAKER) (test code = 752) RED CELL DISTRIBUTION WIDTH 14.6 % 11.6-14.4 H (BEAKER) (test code = 412) PLATELET COUNT (BEAKER) (test code 88 K/CU MM 150-450 L = 756) MEAN PLATELET VOLUME (BEAKER) 10.9 fL 9.4-12.4 (test code = 754) NUCLEATED RED BLOOD CELLS (BEAKER) 0 /100 WBC 0-0 (test code = 413) NEUTROPHILS RELATIVE PERCENT 68 % (BEAKER) (test code = 429) LYMPHOCYTES RELATIVE PERCENT 19 % (BEAKER) (test code = 430) MONOCYTES RELATIVE PERCENT 8 % (BEAKER) (test code = 431) EOSINOPHILS RELATIVE PERCENT 4 % (BEAKER) (test code = 432) BASOPHILS RELATIVE PERCENT 1 % (BEAKER) (test code = 437) NEUTROPHILS ABSOLUTE COUNT 3.53 K/ L 1.78-5.38 (BEAKER) (test code = 670) LYMPHOCYTES ABSOLUTE COUNT 0.97 K/ L 1.32-3.57 L (BEAKER) (test code = 414) MONOCYTES ABSOLUTE COUNT (BEAKER) 0.43 K/ L 0.30-0.82 (test code = 415) EOSINOPHILS ABSOLUTE COUNT 0.23 K/ L 0.04-0.54 (BEAKER) (test code = 416) BASOPHILS ABSOLUTE COUNT (BEAKER) 0.04 K/ L 0.01-0.08 (test code = 417) IMMATURE GRANULOCYTES-RELATIVE 0 % 0-1 PERCENT (BEAKER) (test code = 2801) BASIC METABOLIC [id number] 11:22:00 Test Item Value Reference Range Interpretation Comments SODIUM (BEAKER) 136 meq/L 136-145 (test code = 381) POTASSIUM (BEAKER) 3.8 meq/L 3.5-5.1 (test code = 379) CHLORIDE (BEAKER) 100 meq/L 98-107 (test code = 382) CO2 (BEAKER) (test 29 meq/L 22-29 code = 355) BLOOD UREA NITROGEN 16 mg/dL 7-21 (BEAKER) (test code = 354) CREATININE (BEAKER) 1.01 mg/dL 0.57-1.25 (test code = 358) GLUCOSE RANDOM 337 mg/dL 70-105 H (BEAKER) (test code = 652) CALCIUM (BEAKER) 10.1 mg/dL 8.4-10.2 (test code = 697) EGFR (BEAKER) (test 73 mL/min/1.73 ESTIMA CHILANGO GFR IS code = 1092) sq m NOT ACCURATE CREATININE CLEARANCE IN PREDICTING GLOMERULAR FILTRATION RATE . ESTIMATED GFR I S NOT APPLICABLE FOR DIALYSIS PATIEN TS. 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 - PICLARISA LHEPATIC FUNCTION [id number] 11:22:00 Test Item Value Reference Range Interpretation Comments TOTAL PROTEIN (BEAKER) (test code = 7.7 gm/dL 6.0-8.3 770) ALBUMIN (BEAKER) (test code = 1145) 3.6 g/dL 3.5-5.0 BILIRUBIN TOTAL (BEAKER) (test code 1.2 mg/dL 0.2-1.2 = 377) BILIRUBIN DIRECT (BEAKER) (test 0.7 mg/dL 0.1-0.5 H code = 706) ALKALINE PHOSPHATASE (BEAKER) (test 77 U/L 40-150 code = 346) AST (SGOT) (BEAKER) (test code = 32 U/L 5-34 353) ALT (SGPT) (BEAKER) (test code = 21 U/L 6-55 347) 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 - KJ LPROTHROMBIN TIME/[id number] 11:01:00 Test Item Value Reference Range Interpretation Comments PROTIME (BEAKER) (test code = 15.9 seconds 11.9-14.2 H 759) INR (BEAKER) (test code = 370) 1.31 <=5.90 Effective 02/05/2019: PT Reference Range ChangeNew: 11.9-14.2 Previous: 11.7- 14.7RECOMMENDED COUMADIN/WARFARIN INR THERAPY RANGESSTANDARD DOSE: 2.0-3.0 Includes: PROPHYLAXIS for venous thrombosis, systemic embolization; TREATMENT for venous thrombosis and/or pulmonary embolus.HIGH RISK: Target INR is2.5-3.5 for patients wiht mechanical heart valves.CBC W/PLT COUNT & AUTO [id number] 10:57:00 Test Item Value Reference Range Interpretation Comments WHITE BLOOD CELL COUNT (BEAKER) 2.9 K/ L 3.5-10.5 L (test code = 775) RED BLOOD CELL COUNT (BEAKER) 4.98 M/ L 4.63-6.08 (test code = 761) HEMOGLOBIN (BEAKER) (test code = 15.2 GM/DL 13.7-17.5 410) HEMATOCRIT (BEAKER) (test code = 46.0 % 40.1-51.0 411) MEAN CORPUSCULAR VOLUME (BEAKER) 92.4 fL 79.0-92.2 H (test code = 753) MEAN CORPUSCULAR HEMOGLOBIN 30.5 pg 25.7-32.2 (BEAKER) (test code = 751) MEAN CORPUSCULAR HEMOGLOBIN CONC 33.0 GM/DL 32.3-36.5 (BEAKER) (test code = 752) RED CELL DISTRIBUTION WIDTH 14.2 % 11.6-14.4 (BEAKER) (test code = 412) PLATELET COUNT (BEAKER) (test code 92 K/CU MM 150-450 L = 756) MEAN PLATELET VOLUME (BEAKER) 10.8 fL 9.4-12.4 (test code = 754) NUCLEATED RED BLOOD CELLS (BEAKER) 0 /100 WBC 0-0 (test code = 413) NEUTROPHILS RELATIVE PERCENT 62 % (BEAKER) (test code = 429) LYMPHOCYTES RELATIVE PERCENT 22 % (BEAKER) (test code = 430) MONOCYTES RELATIVE PERCENT 10 % (BEAKER) (test code = 431) EOSINOPHILS RELATIVE PERCENT 4 % (BEAKER) (test code = 432) BASOPHILS RELATIVE PERCENT 1 % (BEAKER) (test code = 437) NEUTROPHILS ABSOLUTE COUNT 1.81 K/ L 1.78-5.38 (BEAKER) (test code = 670) LYMPHOCYTES ABSOLUTE COUNT 0.65 K/ L 1.32-3.57 L (BEAKER) (test code = 414) MONOCYTES ABSOLUTE COUNT (BEAKER) 0.30 K/ L 0.30-0.82 (test code = 415) EOSINOPHILS ABSOLUTE COUNT 0.12 K/ L 0.04-0.54 (BEAKER) (test code = 416) BASOPHILS ABSOLUTE COUNT (BEAKER) 0.03 K/ L 0.01-0.08 (test code = 417) IMMATURE GRANULOCYTES-RELATIVE 0 % 0-1 PERCENT (BEAKER) (test code = 2801) MISCELLANEOUS LAB [id number] 11:29:00 Test Item Value Reference Range Interpretation Comments SCAN RESULT (test code = 6396429) BLOOD [id number] 07:00:00 Test Item Value Reference Range Interpretation Comments CULTURE (BEAKER) (test No growth in 5 days code = 1095) BLOOD [id number] 07:00:00 Test Item Value Reference Range Interpretation Comments CULTURE (BEAKER) (test No growth in 5 days code = 1095) U/S, ABDOMINAL, [id number] 09:56:00Labs to be ordered:->Body Fluid Culture (w/Gram Stain, C\\T\\S) Labs to be ordered:->Glucose+LDH+Protein Labs to be ordered:->Other (please add comment) Reason for exam:->DIAGNOSTIC only - ifthere is any pocket to tap. r/o SBP [facility] 1950 Sex: MFINAL REPORT Limited abdominal ultrasound CLINICAL HISTORY: Ascites FINDINGS: A limited abdominal ultrasound was performed and no fluid was seen. Therefore a paracentesis was not performed. Signed: Aiden Sneed MDReport Verified Date/Time: 07/27/2020 09:56:22 Reading Location: [address] Ultrasound Reading Room POCT-GLUCOSE [id number] 08:04:00 Test Item Value Reference Range Interpretation Comments POC-GLUCOSE METER 134 mg/dL 70-110 H : TESTED A T [facility] 67[address] (BEAKER) (test code = [place], 1538) [address]: Truck Driver Teamster/Techni bradford ID = [id number] for SA ELIANAJULISSA GREGG COMPREHENSIVE METABOLIC [id number] 04:59:00 Test Item Value Reference Range Interpretation Comments TOTAL PROTEIN 6.3 gm/dL 6.0-8.3 (BEAKER) (test code = 770) ALBUMIN (BEAKER) 2.9 g/dL 3.5-5.0 L (test code = 1145) ALKALINE PHOSPHATASE 52 U/L 40-150 (BEAKER) (test code = 346) BILIRUBIN TOTAL 1.2 mg/dL 0.2-1.2 (BEAKER) (test code = 377) SODIUM (BEAKER) (test 141 meq/L 136-145 code = 381) POTASSIUM (BEAKER) 3.6 meq/L 3.5-5.1 (test code = 379) CHLORIDE (BEAKER) 104 meq/L 98-107 (test code = 382) CO2 (BEAKER) (test 30 meq/L 22-29 H code = 355) BLOOD UREA NITROGEN 7 mg/dL 7-21 (BEAKER) (test code = 354) CREATININE (BEAKER) 0.72 mg/dL 0.57-1.25 (test code = 358) GLUCOSE RANDOM 113 mg/dL 70-105 H (BEAKER) (test code = 652) CALCIUM (BEAKER) 8.8 mg/dL 8.4-10.2 (test code = 697) AST (SGOT) (BEAKER) 20 U/L 5-34 (test code = 353) ALT (SGPT) (BEAKER) 13 U/L 6-55 (test code = 347) EGFR (BEAKER) (test 109 ESTIMATE D GFR IS code = 1092) mL/min/1.73 sq NOT ACCURA TE m CREATININE CLEARANCE IN PREDICTING GLOMERULAR FILTRATION RATE . ESTIMATED GFR I S NOT APPLICABLE FOR DIALYSIS PATIEN TS. 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 - EDASIPROTHROMBIN TIME/[id number] 04:29:00 Test Item Value Reference Range Interpretation Comments PROTIME (BEAKER) (test code = 16.3 seconds 11.9-14.2 H 759) INR (BEAKER) (test code = 370) 1.35 <=5.90 Effective 02/05/2019: PT Reference Range ChangeNew: 11.9-14.2 Previous: 11.7- 14.7RECOMMENDED COUMADIN/WARFARIN INR THERAPY RANGESSTANDARD DOSE: 2.0-3.0 Includes: PROPHYLAXIS for venous thrombosis, systemic embolization; TREATMENT for venous thrombosis and/or pulmonary embolus.HIGH RISK: Target INR is2.5-3.5 for patients wiht mechanical heart valves.CBC W/PLT COUNT & AUTO [id number] 04:22:00 Test Item Value Reference Range Interpretation Comments WHITE BLOOD CELL COUNT (BEAKER) 2.9 K/ L 3.5-10.5 L (test code = 775) RED BLOOD CELL COUNT (BEAKER) 4.00 M/ L 4.63-6.08 L (test code = 761) HEMOGLOBIN (BEAKER) (test code = 12.2 GM/DL 13.7-17.5 L 410) HEMATOCRIT (BEAKER) (test code = 36.8 % 40.1-51.0 L 411) MEAN CORPUSCULAR VOLUME (BEAKER) 92.0 fL 79.0-92.2 (test code = 753) MEAN CORPUSCULAR HEMOGLOBIN 30.5 pg 25.7-32.2 (BEAKER) (test code = 751) MEAN CORPUSCULAR HEMOGLOBIN CONC 33.2 GM/DL 32.3-36.5 (BEAKER) (test code = 752) RED CELL DISTRIBUTION WIDTH 14.1 % 11.6-14.4 (BEAKER) (test code = 412) PLATELET COUNT (BEAKER) (test code 82 K/CU MM 150-450 L = 756) MEAN PLATELET VOLUME (BEAKER) 10.1 fL 9.4-12.4 (test code = 754) NUCLEATED RED BLOOD CELLS (BEAKER) 0 /100 WBC 0-0 (test code = 413) NEUTROPHILS RELATIVE PERCENT 63 % (BEAKER) (test code = 429) LYMPHOCYTES RELATIVE PERCENT 22 % (BEAKER) (test code = 430) MONOCYTES RELATIVE PERCENT 10 % (BEAKER) (test code = 431) EOSINOPHILS RELATIVE PERCENT 4 % (BEAKER) (test code = 432) BASOPHILS RELATIVE PERCENT 0 % (BEAKER) (test code = 437) NEUTROPHILS ABSOLUTE COUNT 1.85 K/ L 1.78-5.38 (BEAKER) (test code = 670) LYMPHOCYTES ABSOLUTE COUNT 0.65 K/ L 1.32-3.57 L (BEAKER) (test code = 414) MONOCYTES ABSOLUTE COUNT (BEAKER) 0.30 K/ L 0.30-0.82 (test code = 415) EOSINOPHILS ABSOLUTE COUNT 0.12 K/ L 0.04-0.54 (BEAKER) (test code = 416) BASOPHILS ABSOLUTE COUNT (BEAKER) 0.01 K/ L 0.01-0.08 (test code = 417) IMMATURE GRANULOCYTES-RELATIVE 0 % 0-1 PERCENT (BEAKER) (test code = 2801) POCT-GLUCOSE [id number] 21:11:00 Test Item Value Reference Range Interpretation Comments POC-GLUCOSE METER 158 mg/dL 70-110 H : TESTED A T [facility] [address] (SEAN) (test code = [place], 1538) [id number]: Truck Driver Teamster/Techni bradford ID = [id number] for HENRY LORENZO SARS-COV2/RT-PCR ([facility])2020-07-26 12:07:00 Test Item Value Reference Range Interpretation Comments SARS-COV2/RT-PCR (test Negative Not Detected, Negative, code = 1550977) See external report for linked test SARS-COV-[address] [facility] (test code = 7148335) Negative result for this test determines that SARS-CoV-2 RNA was not present in the specimen above the Limit of Detection (LOD). However, Negative results do not preclude SARS-CoV-2 infection and should not be used as the sole basis for treatment or patient management decisions. Negative results mustbe combined with clinical observations, patient history, and epidemiological information. A false negative result may occur if a specimen is improperly collected, transported or handled. A false negative result should be considered if patient's recent exposures or clinical presentation indicate that COVID-19 (SARS-CoV-2) is likely and diagnostic tests for other causes of illness are negative. Re-testing should be considered in cases of suspected false negatives.The limit of detection for this assay is 800 copies/mL.This SARS CoV-2 test is a real-time RT-PCR test intended for the qualitative detection of nucleic acid from SARS-CoV-2 in a nasopharyngeal swab specimen collected from individuals susp ected of COVID-19 by their healthcare provider.This test has not been Food and Drug Administration (FDA) cleared or approved. This is a modified version of an approved Emergency Use Authorization (EUA) and is in the process of review by the FDA. Once authorized by the FDA, the issued EUA will be effective until the declaration that circumstances exist justifying the authorization of the emergency use of in vitro diagnostic tests for detection and/or diagnosis of COVID-19 is terminated under Section 564(b)(2) of the Act or the EUA is revoked under Section 564(g) of the Act.Fact Sheet for Healthcare Providers:https://www.[employer]/sites/default/files/product/documents/Fact_Shee j_QV_Ldcncsexg_Mtun_OLOI-BlG-6.pdfFact Sheet for Healthcare Patients:https://www.[employer]/sites/default/files/product/ documents/Ehym_Fvpgo_Xdftzfma_Jlwq_FKBB-YvG-7.pdfPerforming Laboratory:[address], [place] [address]NCBV-KNVQZHU METER 2020-07-26 11:15:00 Test Item Value Reference Range Interpretation Comments POC-GLUCOSE METER 212 mg/dL 70-110 H : TESTED A T [facility] 6720 (BEAKER) (test code = [facility], 1538) [id number]: Truck Driver Teamster/Techni bradford ID = [id number] for SA JULISSA MOLINA POCT-GLUCOSE [id number] 08:26:00 Test Item Value Reference Range Interpretation Comments POC-GLUCOSE METER 129 mg/dL 70-110 H : TESTED A T [facility] 6720 (BEAKER) (test code = [facility], 1538) [address]: Truck Driver Teamster/Techni bradford ID = [id number] for SA NTCRISTINO, JULISSA COMPREHENSIVE METABOLIC [id number] 04:51:00 Test Item Value Reference Range Interpretation Comments TOTAL PROTEIN 6.3 gm/dL 6.0-8.3 (BEAKER) (test code = 770) ALBUMIN (BEAKER) 2.9 g/dL 3.5-5.0 L (test code = 1145) ALKALINE PHOSPHATASE 54 U/L 40-150 (BEAKER) (test code = 346) BILIRUBIN TOTAL 1.4 mg/dL 0.2-1.2 H (BEAKER) (test code = 377) SODIUM (BEAKER) (test 137 meq/L 136-145 code = 381) POTASSIUM (BEAKER) 3.6 meq/L 3.5-5.1 (test code = 379) CHLORIDE (BEAKER) 103 meq/L 98-107 (test code = 382) CO2 (BEAKER) (test 27 meq/L 22-29 code = 355) BLOOD UREA NITROGEN 9 mg/dL 7-21 (BEAKER) (test code = 354) CREATININE (BEAKER) 0.73 mg/dL 0.57-1.25 (test code = 358) GLUCOSE RANDOM 132 mg/dL 70-105 H (BEAKER) (test code = 652) CALCIUM (BEAKER) 8.5 mg/dL 8.4-10.2 (test code = 697) AST (SGOT) (BEAKER) 24 U/L 5-34 (test code = 353) ALT (SGPT) (BEAKER) 16 U/L 6-55 (test code = 347) EGFR (BEAKER) (test 107 ESTIMATE D GFR IS code = 1092) mL/min/1.73 sq NOT ACCURA TE m CREATININE CLEARANCE IN PREDICTING GLOMERULAR FILTRATION RATE . ESTIMATED GFR I S NOT APPLICABLE FOR DIALYSIS PATIEN TS. 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 - EDASIPROTHROMBIN TIME/[id number] 04:22:00 Test Item Value Reference Range Interpretation Comments PROTIME (BEAKER) (test code = 15.7 seconds 11.9-14.2 H 759) INR (BEAKER) (test code = 370) 1.28 <=5.90 Effective 02/05/2019: PT Reference Range ChangeNew: 11.9-14.2 Previous: 11.7- 14.7RECOMMENDED COUMADIN/WARFARIN INR THERAPY RANGESSTANDARD DOSE: 2.0-3.0 Includes: PROPHYLAXIS for venous thrombosis, systemic embolization; TREATMENT for venous thrombosis and/or pulmonary embolus.HIGH RISK: Target INR is2.5-3.5 for patients wiht mechanical heart valves.CBC W/PLT COUNT & AUTO [id number] 04:08:00 Test Item Value Reference Range Interpretation Comments WHITE BLOOD CELL COUNT (BEAKER) 3.1 K/ L 3.5-10.5 L (test code = 775) RED BLOOD CELL COUNT (BEAKER) 4.15 M/ L 4.63-6.08 L (test code = 761) HEMOGLOBIN (BEAKER) (test code = 12.6 GM/DL 13.7-17.5 L 410) HEMATOCRIT (BEAKER) (test code = 38.2 % 40.1-51.0 L 411) MEAN CORPUSCULAR VOLUME (BEAKER) 92.0 fL 79.0-92.2 (test code = 753) MEAN CORPUSCULAR HEMOGLOBIN 30.4 pg 25.7-32.2 (BEAKER) (test code = 751) MEAN CORPUSCULAR HEMOGLOBIN CONC 33.0 GM/DL 32.3-36.5 (BEAKER) (test code = 752) RED CELL DISTRIBUTION WIDTH 14.0 % 11.6-14.4 (BEAKER) (test code = 412) PLATELET COUNT (BEAKER) (test code 70 K/CU MM 150-450 L = 756) MEAN PLATELET VOLUME (BEAKER) 10.3 fL 9.4-12.4 (test code = 754) NUCLEATED RED BLOOD CELLS (BEAKER) 0 /100 WBC 0-0 (test code = 413) NEUTROPHILS RELATIVE PERCENT 68 % (BEAKER) (test code = 429) LYMPHOCYTES RELATIVE PERCENT 17 % (BEAKER) (test code = 430) MONOCYTES RELATIVE PERCENT 9 % (BEAKER) (test code = 431) EOSINOPHILS RELATIVE PERCENT 5 % (BEAKER) (test code = 432) BASOPHILS RELATIVE PERCENT 1 % (BEAKER) (test code = 437) NEUTROPHILS ABSOLUTE COUNT 2.12 K/ L 1.78-5.38 (BEAKER) (test code = 670) LYMPHOCYTES ABSOLUTE COUNT 0.54 K/ L 1.32-3.57 L (BEAKER) (test code = 414) MONOCYTES ABSOLUTE COUNT (BEAKER) 0.27 K/ L 0.30-0.82 L (test code = 415) EOSINOPHILS ABSOLUTE COUNT 0.16 K/ L 0.04-0.54 (BEAKER) (test code = 416) BASOPHILS ABSOLUTE COUNT (BEAKER) 0.02 K/ L 0.01-0.08 (test code = 417) IMMATURE GRANULOCYTES-RELATIVE 1 % 0-1 PERCENT (BEAKER) (test code = 2801) POCT-GLUCOSE [id number] 21:37:00 Test Item Value Reference Range Interpretation Comments POC-GLUCOSE METER 125 mg/dL 70-110 H : TESTED A T [facility] 6720 (BEAKER) (test code = [place], 1538) [address]: Truck Driver Teamster/Techni bradford ID = [id number] for NEHAL DOUGLAS POCT-GLUCOSE [id number] 17:13:00 Test Item Value Reference Range Interpretation Comments POC-GLUCOSE METER 173 mg/dL 70-110 H : TESTED A T [facility] 6720 (BEAKER) (test code = [facility], 1538) 61323: Truck Driver Teamster/Techni bradford ID = [id number] for DONALD MELENDREZ POCT-GLUCOSE [id number] 12:22:00 Test Item Value Reference Range Interpretation Comments POC-GLUCOSE METER 136 mg/dL 70-110 H : TESTED A T [facility] 6720 (BEAKER) (test code = [facility], 1538) 13725: Truck Driver Teamster/Techni bradford ID = [id number] for RENNY SAUH POCT-GLUCOSE [id number] 10:20:00 Test Item Value Reference Range Interpretation Comments POC-GLUCOSE METER 143 mg/dL 70-110 H : TESTED A T [facility] 6720 (BEAKER) (test code = [facility], 1538) 81489: Truck Driver Teamster/Techni bradford ID = [id number] for ALBERTINA FRANKLIN COMPREHENSIVE METABOLIC [id number] 09:41:00 Test Item Value Reference Range Interpretation Comments TOTAL PROTEIN 6.1 gm/dL 6.0-8.3 (BEAKER) (test code = 770) ALBUMIN (BEAKER) 2.8 g/dL 3.5-5.0 L (test code = 1145) ALKALINE PHOSPHATASE 56 U/L 40-150 (BEAKER) (test code = 346) BILIRUBIN TOTAL 1.4 mg/dL 0.2-1.2 H (BEAKER) (test code = 377) SODIUM (BEAKER) (test 136 meq/L 136-145 code = 381) POTASSIUM (BEAKER) 3.4 meq/L 3.5-5.1 L (test code = 379) CHLORIDE (BEAKER) 102 meq/L 98-107 (test code = 382) CO2 (BEAKER) (test 26 meq/L 22-29 code = 355) BLOOD UREA NITROGEN 12 mg/dL 7-21 (BEAKER) (test code = 354) CREATININE (BEAKER) 0.75 mg/dL 0.57-1.25 (test code = 358) GLUCOSE RANDOM 125 mg/dL 70-105 H (BEAKER) (test code = 652) CALCIUM (BEAKER) 8.1 mg/dL 8.4-10.2 L (test code = 697) AST (SGOT) (BEAKER) 19 U/L 5-34 (test code = 353) ALT (SGPT) (BEAKER) 14 U/L 6-55 (test code = 347) EGFR (BEAKER) (test 104 ESTIMATE D GFR IS code = 1092) mL/min/1.73 sq NOT ACCURA TE m CREATININE CLEARANCE IN PREDICTING GLOMERULAR FILTRATION RATE . ESTIMATED GFR I S NOT APPLICABLE FOR DIALYSIS PATIEN TS. Truck Driver Teamster ID - [id number], [id number] 09:35:00Reason for exam:->ercp [facility] : 1950 Sex: MFluoroscopic unit utilized for a procedure performed in the OR. No interpretation was requested. Refer to the operative report for findings. Refer to PACS for patient radiation dose information.PROTHROMBIN [id number] 09:25:00 Test Item Value Reference Range Interpretation Comments PROTIME (BEAKER) (test code = 16.4 seconds 11.9-14.2 H 759) INR (BEAKER) (test code = 370) 1.36 <=5.90 Effective 02/05/2019: PT Reference Range ChangeNew: 11.9-14.2 Previous: 11.7- 14.7RECOMMENDED COUMADIN/WARFARIN INR THERAPY RANGESSTANDARD DOSE: 2.0-3.0 Includes: PROPHYLAXIS for venous thrombosis, systemic embolization; TREATMENT for venous thrombosis and/or pulmonary embolus.HIGH RISK: Target INR is2.5-3.5 for patients wiht mechanical heart valves.CBC W/PLT COUNT & AUTO [id number] 09:17:00 Test Item Value Reference Range Interpretation Comments WHITE BLOOD CELL COUNT (BEAKER) 3.2 K/ L 3.5-10.5 L (test code = 775) RED BLOOD CELL COUNT (BEAKER) 3.97 M/ L 4.63-6.08 L (test code = 761) HEMOGLOBIN (BEAKER) (test code = 12.0 GM/DL 13.7-17.5 L 410) HEMATOCRIT (BEAKER) (test code = 36.5 % 40.1-51.0 L 411) MEAN CORPUSCULAR VOLUME (BEAKER) 91.9 fL 79.0-92.2 (test code = 753) MEAN CORPUSCULAR HEMOGLOBIN 30.2 pg 25.7-32.2 (BEAKER) (test code = 751) MEAN CORPUSCULAR HEMOGLOBIN CONC 32.9 GM/DL 32.3-36.5 (BEAKER) (test code = 752) RED CELL DISTRIBUTION WIDTH 14.4 % 11.6-14.4 (BEAKER) (test code = 412) PLATELET COUNT (BEAKER) (test code 61 K/CU MM 150-450 L = 756) MEAN PLATELET VOLUME (BEAKER) 11.3 fL 9.4-12.4 (test code = 754) NUCLEATED RED BLOOD CELLS (BEAKER) 0 /100 WBC 0-0 (test code = 413) NEUTROPHILS RELATIVE PERCENT 70 % (BEAKER) (test code = 429) LYMPHOCYTES RELATIVE PERCENT 15 % (BEAKER) (test code = 430) MONOCYTES RELATIVE PERCENT 10 % (BEAKER) (test code = 431) EOSINOPHILS RELATIVE PERCENT 5 % (BEAKER) (test code = 432) BASOPHILS RELATIVE PERCENT 0 % (BEAKER) (test code = 437) NEUTROPHILS ABSOLUTE COUNT 2.26 K/ L 1.78-5.38 (BEAKER) (test code = 670) LYMPHOCYTES ABSOLUTE COUNT 0.49 K/ L 1.32-3.57 L (BEAKER) (test code = 414) MONOCYTES ABSOLUTE COUNT (BEAKER) 0.32 K/ L 0.30-0.82 (test code = 415) EOSINOPHILS ABSOLUTE COUNT 0.15 K/ L 0.04-0.54 (BEAKER) (test code = 416) BASOPHILS ABSOLUTE COUNT (AKER) 0.01 K/ L 0.01-0.08 (test code = 417) IMMATURE GRANULOCYTES-RELATIVE 0 % 0-1 PERCENT (BEAKER) (test code = 2801) POCT-GLUCOSE [id number] 07:36:00 Test Item Value Reference Range Interpretation Comments POC-GLUCOSE METER 136 mg/dL 70-110 H : TESTED A T [facility] 6720 (BEAKER) (test code = [facility], 153) [id number]: Truck Driver Teamster/Techni bradford ID = [id number] for NEHAL DOUGLAS POCT-GLUCOSE [id number] 21:56:00 Test Item Value Reference Range Interpretation Comments POC-GLUCOSE METER 196 mg/dL 70-110 H : TESTED A T [facility] 6720 (BEAKER) (test code = [facility], 153) 34978: Truck Driver Teamster/Techni bradford ID = [id number] for NEHAL DOUGLAS POCT-GLUCOSE [id number] 17:43:00 Test Item Value Reference Range Interpretation Comments POC-GLUCOSE METER 176 mg/dL 70-110 H : TESTED A T [facility] 6720 (BEAKER) (test code [facility], = 1538) 75013: Truck Driver Teamster/Techni bradford ID = [id number] for JORGE L GREEN POCT-GLUCOSE [id number] 12:20:00 Test Item Value Reference Range Interpretation Comments POC-GLUCOSE METER 184 mg/dL 70-110 H : TESTED A T [facility] 6720 (BEAKER) (test code = [facility], 153) 09017: Truck Driver Teamster/Techni bradford ID = [id number] for DONALD MELENDREZ ALPHA FETOPROTEIN (AFP), TUMOR [id number] 08:36:00 Test Item Value Reference Range Interpretation Comments ALPHA-FETOPROTEIN (BEAKER) (test 2.5 ng/mL <10.0 code = 1094) Truck Driver Teamster ID - ADMINCOMPREHENSIVE METABOLIC [id number] 08:28:00 Test Item Value Reference Range Interpretation Comments TOTAL PROTEIN 6.5 gm/dL 6.0-8.3 (BEAKER) (test code = 770) ALBUMIN (BEAKER) 3.0 g/dL 3.5-5.0 L (test code = 1145) ALKALINE PHOSPHATASE 59 U/L 40-150 (BEAKER) (test code = 346) BILIRUBIN TOTAL 2.7 mg/dL 0.2-1.2 H (BEAKER) (test code = 377) SODIUM (BEAKER) (test 135 meq/L 136-145 L code = 381) POTASSIUM (BEAKER) 3.7 meq/L 3.5-5.1 (test code = 379) CHLORIDE (BEAKER) 102 meq/L 98-107 (test code = 382) CO2 (BEAKER) (test 25 meq/L 22-29 code = 355) BLOOD UREA NITROGEN 15 mg/dL 7-21 (BEAKER) (test code = 354) CREATININE (BEAKER) 0.89 mg/dL 0.57-1.25 (test code = 358) GLUCOSE RANDOM 128 mg/dL 70-105 H (BEAKER) (test code = 652) CALCIUM (BEAKER) 8.7 mg/dL 8.4-10.2 (test code = 697) AST (SGOT) (BEAKER) 27 U/L 5-34 (test code = 353) ALT (SGPT) (BEAKER) 20 U/L 6-55 (test code = 347) EGFR (BEAKER) (test 85 mL/min/1.73 ESTIMA CHILANGO GFR IS code = 1092) sq m NOT ACCURATE CREATININE CLEARANCE IN PREDICTING GLOMERULAR FILTRATION RATE . ESTIMATED GFR I S NOT APPLICABLE FOR DIALYSIS PATIEN TS. Truck Driver Teamster ID - KELSIE MSpecimen slightly ictericPOCT-GLUCOSE [id number] 07:30:00 Test Item Value Reference Range Interpretation Comments POC-GLUCOSE METER 130 mg/dL 70-110 H : TESTED A T [facility] 6720 (BEAKER) (test code = [place], 1538) 20896: Truck Driver Teamster/Techni bradford ID = [id number] for DONALD MELENDREZ PROTHROMBIN [id number] 06:56:00 Test Item Value Reference Range Interpretation Comments PROTIME (BEAKER) (test code = 17.0 seconds 11.9-14.2 H 759) INR (BEAKER) (test code = 370) 1.42 <=5.90 Effective 02/05/2019: PT Reference Range ChangeNew: 11.9-14.2 Previous: 11.7- 14.7RECOMMENDED COUMADIN/WARFARIN INR THERAPY RANGESSTANDARD DOSE: 2.0-3.0 Includes: PROPHYLAXIS for venous thrombosis, systemic embolization; TREATMENT for venous thrombosis and/or pulmonary embolus.HIGH RISK: Target INR is2.5-3.5 for patients wiht mechanical heart valves.CBC W/PLT COUNT & AUTO [id number] 06:48:00 Test Item Value Reference Range Interpretation Comments WHITE BLOOD CELL COUNT (BEAKER) 3.8 K/ L 3.5-10.5 (test code = 775) RED BLOOD CELL COUNT (BEAKER) 4.21 M/ L 4.63-6.08 L (test code = 761) HEMOGLOBIN (BEAKER) (test code = 13.1 GM/DL 13.7-17.5 L 410) HEMATOCRIT (BEAKER) (test code = 38.6 % 40.1-51.0 L 411) MEAN CORPUSCULAR VOLUME (BEAKER) 91.7 fL 79.0-92.2 (test code = 753) MEAN CORPUSCULAR HEMOGLOBIN 31.1 pg 25.7-32.2 (BEAKER) (test code = 751) MEAN CORPUSCULAR HEMOGLOBIN CONC 33.9 GM/DL 32.3-36.5 (BEAKER) (test code = 752) RED CELL DISTRIBUTION WIDTH 14.5 % 11.6-14.4 H (BEAKER) (test code = 412) PLATELET COUNT (BEAKER) (test code 53 K/CU MM 150-450 L = 756) MEAN PLATELET VOLUME (BEAKER) 10.1 fL 9.4-12.4 (test code = 754) NUCLEATED RED BLOOD CELLS (BEAKER) 0 /100 WBC 0-0 (test code = 413) NEUTROPHILS RELATIVE PERCENT 74 % (BEAKER) (test code = 429) LYMPHOCYTES RELATIVE PERCENT 13 % (BEAKER) (test code = 430) MONOCYTES RELATIVE PERCENT 9 % (BEAKER) (test code = 431) EOSINOPHILS RELATIVE PERCENT 3 % (BEAKER) (test code = 432) BASOPHILS RELATIVE PERCENT 1 % (BEAKER) (test code = 437) NEUTROPHILS ABSOLUTE COUNT 2.83 K/ L 1.78-5.38 (BEAKER) (test code = 670) LYMPHOCYTES ABSOLUTE COUNT 0.51 K/ L 1.32-3.57 L (BEAKER) (test code = 414) MONOCYTES ABSOLUTE COUNT (BEAKER) 0.35 K/ L 0.30-0.82 (test code = 415) EOSINOPHILS ABSOLUTE COUNT 0.10 K/ L 0.04-0.54 (BEAKER) (test code = 416) BASOPHILS ABSOLUTE COUNT (BEAKER) 0.02 K/ L 0.01-0.08 (test code = 417) IMMATURE GRANULOCYTES-RELATIVE 1 % 0-1 PERCENT (BEAKER) (test code = 2801) POCT-GLUCOSE [id number] 21:19:00 Test Item Value Reference Range Interpretation Comments POC-GLUCOSE METER 184 mg/dL 70-110 H : TESTED A T [facility] 6720 (BEAKER) (test code = [place], 1538) 68[address]: Truck Driver Teamster/Techni bradford ID = [id number] for ES HENRY DIALLO [place], [id number] 20:31:00Intra-op imagingReason for exam:->biliary obstructionMARTIN L[facility]Name: AGN[facility] ARAMBULA : 1950 Sex: MFINAL REPORT TECHNIQUE: Fluoroscopic images from endoscopic retrograde cholangiopancreatography. INDICATION: Biliary obstruction. COMPARISON: None. IMPRESSION:Fluoroscopic images from endoscopic retrograde cholangiopancreatography, not obtained by the undersigned. Please refer to endoscopy note for more details of the procedure and findings. Fluoroscopy time: 59.8 secondsNumber of images: Six Signed: Logan Archibald Verified Date/Time: 07/23/2020 20:31:21 Reading Location: [facility] [id number] Consult Reading Room POCT-GLUCOSE [id number] 17:49:00 Test Item Value Reference Range Interpretation Comments POC-GLUCOSE METER 156 mg/dL 70-110 H : TESTED A T [facility] 6720 (BEAKER) ([place], [address]: code = 1538) Truck Driver Teamster/Techni bradford ID = [id number] for SIGRID CORONAR IN POCT-GLUCOSE [id number] 11:38:00 Test Item Value Reference Range Interpretation Comments POC-GLUCOSE METER 215 mg/dL 70-110 H : TESTED A T [facility] 6720 (BEAKER) ([place], [address]: code = 1538) Truck Driver Teamster/Techni bradford ID = [id number] for SIGRID CORONAR IN [id number] 11:35:00 Test Item Value Reference Range Interpretation Comments LIPASE (BEAKER) (test code = 749) 20 U/L 8-78 Truck Driver Teamster ID - ELAINE Worthy slightly ictericPOCT-GLUCOSE [id number] 07:37:00 Test Item Value Reference Range Interpretation Comments POC-GLUCOSE METER 145 mg/dL 70-110 H : TESTED A T [facility] 6720 (BEAKER) ([place], [address]: code = 1538) Truck Driver Teamster/Techni bradford ID = [id number] for SIGRID CORONAR IN [id number] 05:28:00 Test Item Value Reference Range Interpretation Comments MAGNESIUM (BEAKER) (test code = 1.2 mg/dL 1.6-2.6 L 627) Truck Driver Teamster ID - [id number] 05:28:00 Test Item Value Reference Range Interpretation Comments PHOSPHORUS (BEAKER) (test code = 2.5 mg/dL 2.3-4.7 604) Truck Driver Teamster ID - DBCOMPREHENSIVE METABOLIC [id number] 05:28:00 Test Item Value Reference Range Interpretation Comments TOTAL PROTEIN 6.3 gm/dL 6.0-8.3 (BEAKER) (test code = 770) ALBUMIN (BEAKER) 3.1 g/dL 3.5-5.0 L (test code = 1145) ALKALINE PHOSPHATASE 61 U/L 40-150 (BEAKER) (test code = 346) BILIRUBIN TOTAL 2.9 mg/dL 0.2-1.2 H (BEAKER) (test code = 377) SODIUM (BEAKER) (test 134 meq/L 136-145 L code = 381) POTASSIUM (BEAKER) 3.7 meq/L 3.5-5.1 (test code = 379) CHLORIDE (BEAKER) 103 meq/L 98-107 (test code = 382) CO2 (BEAKER) (test 24 meq/L 22-29 code = 355) BLOOD UREA NITROGEN 16 mg/dL 7-21 (BEAKER) (test code = 354) CREATININE (BEAKER) 0.90 mg/dL 0.57-1.25 (test code = 358) GLUCOSE RANDOM 149 mg/dL 70-105 H (BEAKER) (test code = 652) CALCIUM (BEAKER) 8.7 mg/dL 8.4-10.2 (test code = 697) AST (SGOT) (BEAKER) 26 U/L 5-34 (test code = 353) ALT (SGPT) (BEAKER) 19 U/L 6-55 (test code = 347) EGFR (BEAKER) (test 84 mL/min/1.73 ESTIMA CHILANGO GFR IS code = 1092) sq m NOT ACCURATE CREATININE CLEARANCE IN PREDICTING GLOMERULAR FILTRATION RATE . ESTIMATED GFR I S NOT APPLICABLE FOR DIALYSIS PATIEN TS. Truck Driver Teamster ID - DBSpecimen slightly ictericPROTHROMBIN [id number] 04:48:00 Test Item Value Reference Range Interpretation Comments PROTIME (BEAKER) (test code = 16.4 seconds 11.9-14.2 H 759) INR (BEAKER) (test code = 370) 1.36 <=5.90 Effective 02/05/2019: PT Reference Range ChangeNew: 11.9-14.2 Previous: 11.7- 14.7RECOMMENDED COUMADIN/WARFARIN INR THERAPY RANGESSTANDARD DOSE: 2.0-3.0 Includes: PROPHYLAXIS for venous thrombosis, systemic embolization; TREATMENT for venous thrombosis and/or pulmonary embolus.HIGH RISK: Target INR is2.5-3.5 for patients wiht mechanical heart valves.CBC W/PLT COUNT & AUTO [id number] 04:33:00 Test Item Value Reference Range Interpretation Comments WHITE BLOOD CELL COUNT (BEAKER) 5.7 K/ L 3.5-10.5 (test code = 775) RED BLOOD CELL COUNT (BEAKER) 4.18 M/ L 4.63-6.08 L (test code = 761) HEMOGLOBIN (BEAKER) (test code = 12.8 GM/DL 13.7-17.5 L 410) HEMATOCRIT (BEAKER) (test code = 38.8 % 40.1-51.0 L 411) MEAN CORPUSCULAR VOLUME (BEAKER) 92.8 fL 79.0-92.2 H (test code = 753) MEAN CORPUSCULAR HEMOGLOBIN 30.6 pg 25.7-32.2 (BEAKER) (test code = 751) MEAN CORPUSCULAR HEMOGLOBIN CONC 33.0 GM/DL 32.3-36.5 (BEAKER) (test code = 752) RED CELL DISTRIBUTION WIDTH 14.8 % 11.6-14.4 H (BEAKER) (test code = 412) PLATELET COUNT (BEAKER) (test code 60 K/CU MM 150-450 L = 756) MEAN PLATELET VOLUME (BEAKER) 11.1 fL 9.4-12.4 (test code = 754) NUCLEATED RED BLOOD CELLS (BEAKER) 0 /100 WBC 0-0 (test code = 413) NEUTROPHILS RELATIVE PERCENT 74 % (BEAKER) (test code = 429) LYMPHOCYTES RELATIVE PERCENT 12 % (BEAKER) (test code = 430) MONOCYTES RELATIVE PERCENT 11 % (BEAKER) (test code = 431) EOSINOPHILS RELATIVE PERCENT 2 % (BEAKER) (test code = 432) BASOPHILS RELATIVE PERCENT 1 % (BEAKER) (test code = 437) NEUTROPHILS ABSOLUTE COUNT 4.27 K/ L 1.78-5.38 (BEAKER) (test code = 670) LYMPHOCYTES ABSOLUTE COUNT 0.67 K/ L 1.32-3.57 L (BEAKER) (test code = 414) MONOCYTES ABSOLUTE COUNT (BEAKER) 0.61 K/ L 0.30-0.82 (test code = 415) EOSINOPHILS ABSOLUTE COUNT 0.11 K/ L 0.04-0.54 (BEAKER) (test code = 416) BASOPHILS ABSOLUTE COUNT (BEAKER) 0.03 K/ L 0.01-0.08 (test code = 417) IMMATURE GRANULOCYTES-RELATIVE 1 % 0-1 PERCENT (BEAKER) (test code = 2801) POCT-GLUCOSE [id number] 20:18:00 Test Item Value Reference Range Interpretation Comments POC-GLUCOSE METER 151 mg/dL 70-110 H : TESTED A T [facility] 6720 (BEAKER) (test code = [facility], 1538) 17018: Truck Driver Teamster/Techni bradford ID = [id number] for HENRY LORENZO POCT-GLUCOSE [id number] 19:02:00 Test Item Value Reference Range Interpretation Comments POC-GLUCOSE METER 148 mg/dL 70-110 H : TESTED A T [facility] 6720 (BEAKER) (test code = [facility], 1538) 71645: Truck Driver Teamster/Techni bradford ID = [id number] for HUMA JOAQUIN POCT-GLUCOSE [id number] 15:25:00 Test Item Value Reference Range Interpretation Comments POC-GLUCOSE METER 174 mg/dL 70-110 H : TESTED A T [facility] 6720 (BEAKER) (test code = [facility], 1538) 05045: Truck Driver Teamster/Techni bradford ID = [id number] for Adriana Rubio cas TROPONIN [id number] 13:52:00 Test Item Value Reference Range Interpretation Comments TROPONIN I (BEAKER) (test code = 0.01 ng/mL 0.00-0.03 397) Troponin I (TnI) levels must be interpreted in the context of the presenting symptoms and the clinical findings. Elevated TnI levels indicate myocardial damage, but are not specific for ischemic heart disease. Elevated TnI levels are seen in patients with other cardiac conditions (including myocarditis and congestive heart failure), and slight TnI elevations occur in patients with other conditions, including sepsis, renal failure, acidosis, acute neurological disease, and persistent tachyarrhythmia.Truck Driver Teamster ID - JODIE FBASIC METABOLIC [id number] 13:46:00 Test Item Value Reference Range Interpretation Comments SODIUM (BEAKER) 133 meq/L 136-145 L (test code = 381) POTASSIUM (BEAKER) 4.6 meq/L 3.5-5.1 Specimen slightly (test code = 379) hemolyzed CHLORIDE (BEAKER) 101 meq/L 98-107 (test code = 382) CO2 (BEAKER) (test 25 meq/L 22-29 code = 355) BLOOD UREA NITROGEN 16 mg/dL 7-21 (BEAKER) (test code = 354) CREATININE (BEAKER) 0.81 mg/dL 0.57-1.25 Specimen slightly (test code = 358) hemolyzed GLUCOSE RANDOM 182 mg/dL 70-105 H (BEAKER) (test code = 652) CALCIUM (BEAKER) 10.1 mg/dL 8.4-10.2 (test code = 697) EGFR (BEAKER) (test 95 mL/min/1.73 ESTIMA CHILANGO GFR IS code = 1092) sq m NOT ACCURATE CREATININE CLEARANCE IN PREDICTING GLOMERULAR FILTRATION RATE . ESTIMATED GFR I S NOT APPLICABLE FOR DIALYSIS PATIEN TS. Truck Driver Teamster ID Boo FELICIANO FSpecimen slightly ictericHEPATIC FUNCTION PANEL 2020-07-22 13:46:00 Test Item Value Reference Range Interpretation Comments TOTAL PROTEIN (BEAKER) 8.0 gm/dL 6.0-8.3 Speci men slightly (test code = 770) hemolyzed ALBUMIN (BEAKER) (test 3.8 g/dL 3.5-5.0 Speci men slightly code = 1145) hemolyzed BILIRUBIN TOTAL 2.7 mg/dL 0.2-1.2 H Specimen sli ghtly (BEAKER) (test code = hemoly zed 377) BILIRUBIN DIRECT 1.3 mg/dL 0.1-0.5 H Specimen sl ightly (BEAKER) (test code = hemoly zed 706) ALKALINE PHOSPHATASE 77 U/L 40-150 (BEAKER) (test code = 346) AST (SGOT) (BEAKER) 38 U/L 5-34 H Specimen slightly (test code = 353) hemolyzed ALT (SGPT) (BEAKER) 24 U/L 6-55 Specimen slightly (test code = 347) hemolyzed Truck Driver Teamster ID Boo FELICIANO FSpecimen slightly ictericU/S, ABDOMINAL, LIMITED 2020-07-22 13:19:00Abdomen limited area? Add comment if clarification is needed.->Right upper quadrantReason for exam:->ABDOMINAL PAIN [facility] : 1950 Sex: MFINAL REPORT TECHNIQUE: Grayscale ultrasound of the right abdomen. INDICATION: ABDOMINAL PAIN. COMPARISON: Chest CT from 06/09/2020. FINDINGS: MIDLINE VASCULATURE: Thevisualized inferior vena cava is unremarkable. The maximum visualized aortic diameter is 3 cm. This measurement is likely incorrect since a recent CT had an aorta which measure 2.7 cm. LIVER: Nodular liver contour. A hyperechoic structure in the left hepatic lobe measures 2 x 1.2 x 1.3 cm. The main portal vein is patent and measures 1.4 cm in diameter. BILIARY:Gallbladder: Multiple stones. The gallbladder wall is mildly thickened. No gallbladder distention or pericholecystic fluid. Negative sonographic Barker sign.Common bile duct measures 0.5 cm, within normal limits. No intrahepatic biliary ductal dilatation. PANCREAS: Incompletely visualized due to overlying bowel gas. PERITONEUM: No free fluid. RIGHT KIDNEY: Normal in size. No hydronephrosis. No sonographically evident solid mass lesion. IMPRESSION: 1.Cholelithiasis with a mildly thickened gallbladder wall. The gallbladder wall thickening is nonspecific and could be due to the cirrhosis. Chronic cholecystitis is in the differential. Acute cholecystitis is considered less likely given the lack of gallbladder distention. 2.Cirrhotic liver morphology. 3.A hyperechoic focus in the left hepatic lobe measures 2 cm. This is nonspecific and could be a regenerative nodule, siderotic nodule, or hepatocellular carcinoma. Further evaluation with a MRI of the abdomen with and without intravenous contrast, liver mass protocol, is recommended. Signed: Rosalio Guerrero MDReport Verified Date/Time: 07/22/2020 13:19:18 SARS-COV2/RT-PCR ([facility])2020-07-20 08:17:00 Test Item Value Reference Range Interpretation Comments SARS-COV2/RT-PCR (test Negative Not Detected, Negative, code = 8939439) See external report for linked test SARS-COV-2 PERFORMING LAB [facility] (test code = 6275359) Negative result for this test determines that SARS-CoV-2 RNA was not present in the specimen above the Limit of Detection (LOD). However, Negative results do not preclude SARS-CoV-2 infection and should not be used as the sole basis for treatment or patient management decisions. Negative results mustbe combined with clinical observations, patient history, and epidemiological information. A false negative result may occur if a specimen is improperly collected, transported or handled. A false negative result should be considered if patient's recent exposures or clinical presentation indicate that COVID-19 (SARS-CoV-2) is likely and diagnostic tests for other causes of illness are negative. Re-testing should be considered in cases of suspected false negatives.The limit of detection for this assay is 800 copies/mL.This SARS CoV-2 test is a real-time RT-PCR test intended for the qualitative detection of nucleic acid from SARS-CoV-2 in a nasopharyngeal swab specimen collected from individuals susp ected of COVID-19 by their healthcare provider.This test has not been Food and Drug Administration (FDA) cleared or approved. This is a modified version of an approved Emergency Use Authorization (EUA) and is in the process of review by the FDA. Once authorized by the FDA, the issued EUA will be effective until the declaration that circumstances exist justifying the authorization of the emergency use of in vitro diagnostic tests for detection and/or diagnosis of COVID-19 is terminated under Section 564(b)(2) of the Act or the EUA is revoked under Section 564(g) of the Act.Fact Sheet for Healthcare Providers:https://www.[employer]/sites/default/files/product/documents/Fact_Shee g_QK_Oqmyjwnht_Wwhe_QCAM-XjT-1.pdfFact Sheet for Healthcare Patients:https://www.[employer]/sites/default/files/product/ documents/Tyej_Ryhsi_Meqwukuz_Lbmx_ACLV-QmQ-1.pdfPerforming Laboratory:[facility], [place] [address]JHS W/PLT COUNT & AUTO [id number] 11:05:00 Test Item Value Reference Range Interpretation Comments WHITE BLOOD CELL COUNT (BEAKER) 4.1 K/ L 3.5-10.5 (test code = 775) RED BLOOD CELL COUNT (BEAKER) 4.85 M/ L 4.63-6.08 (test code = 761) HEMOGLOBIN (BEAKER) (test code = 15.2 GM/DL 13.7-17.5 410) HEMATOCRIT (BEAKER) (test code = 43.3 % 40.1-51.0 411) MEAN CORPUSCULAR VOLUME (BEAKER) 89.3 fL 79.0-92.2 (test code = 753) MEAN CORPUSCULAR HEMOGLOBIN 31.3 pg 25.7-32.2 (BEAKER) (test code = 751) MEAN CORPUSCULAR HEMOGLOBIN CONC 35.1 GM/DL 32.3-36.5 (BEAKER) (test code = 752) RED CELL DISTRIBUTION WIDTH 15.2 % 11.6-14.4 H (BEAKER) (test code = 412) PLATELET COUNT (BEAKER) (test code 63 K/CU MM 150-450 L = 756) MEAN PLATELET VOLUME (BEAKER) 10.8 fL 9.4-12.4 (test code = 754) NUCLEATED RED BLOOD CELLS (BEAKER) 0 /100 WBC 0-0 (test code = 413) NEUTROPHILS RELATIVE PERCENT 68 % (BEAKER) (test code = 429) LYMPHOCYTES RELATIVE PERCENT 17 % (BEAKER) (test code = 430) MONOCYTES RELATIVE PERCENT 9 % (BEAKER) (test code = 431) EOSINOPHILS RELATIVE PERCENT 5 % (BEAKER) (test code = 432) BASOPHILS RELATIVE PERCENT 1 % (BEAKER) (test code = 437) NEUTROPHILS ABSOLUTE COUNT 2.76 K/ L 1.78-5.38 (BEAKER) (test code = 670) LYMPHOCYTES ABSOLUTE COUNT 0.69 K/ L 1.32-3.57 L (BEAKER) (test code = 414) MONOCYTES ABSOLUTE COUNT (BEAKER) 0.37 K/ L 0.30-0.82 (test code = 415) EOSINOPHILS ABSOLUTE COUNT 0.19 K/ L 0.04-0.54 (BEAKER) (test code = 416) BASOPHILS ABSOLUTE COUNT (BEAKER) 0.04 K/ L 0.01-0.08 (test code = 417) IMMATURE GRANULOCYTES-RELATIVE 0 % 0-1 PERCENT (BEAKER) (test code = 2801) BASIC METABOLIC [id number] 10:45:00 Test Item Value Reference Range Interpretation Comments SODIUM (BEAKER) 136 meq/L 136-145 (test code = 381) POTASSIUM (BEAKER) 4.5 meq/L 3.5-5.1 Specimen slightly (test code = 379) hemolyzed CHLORIDE (BEAKER) 100 meq/L 98-107 (test code = 382) CO2 (BEAKER) (test 26 meq/L 22-29 code = 355) BLOOD UREA NITROGEN 18 mg/dL 7-21 (BEAKER) (test code = 354) CREATININE (BEAKER) 0.87 mg/dL 0.57-1.25 Specimen slightly (test code = 358) hemolyzed GLUCOSE RANDOM 201 mg/dL 70-105 H (BEAKER) (test code = 652) CALCIUM (BEAKER) 10.1 mg/dL 8.4-10.2 (test code = 697) EGFR (BEAKER) (test 87 mL/min/1.73 ESTIMA CHILANGO GFR IS code = 1092) sq m NOT ACCURATE CREATININE CLEARANCE IN PREDICTING GLOMERULAR FILTRATION RATE . ESTIMATED GFR I S NOT APPLICABLE FOR DIALYSIS PATIEN TS. [employer] ID - JODIE FSpecimen slightly ictericPROTHROMBIN [id number] 10:41:00 Test Item Value Reference Range Interpretation Comments PROTIME (BEAKER) (test code = 15.2 seconds 11.9-14.2 H 759) INR (BEAKER) (test code = 370) 1.23 <=5.90 Effective 02/05/2019: PT Reference Range ChangeNew: 11.9-14.2 Previous: 11.7- 14.7RECOMMENDED COUMADIN/WARFARIN INR THERAPY RANGESSTANDARD DOSE: 2.0-3.0 Includes: PROPHYLAXIS for venous thrombosis, systemic embolization; TREATMENT for venous thrombosis and/or pulmonary embolus.HIGH RISK: Target INR is2.5-3.5 for patients wiht mechanical heart valves.Within 24 hours, if on Coumadin SARS-COV2/RT-PCR ([facility])2020-07-16 07:16:00 Test Item Value Reference Range Interpretation Comments SARS-COV2/RT-PCR (test Negative Not Detected, Negative, code = 5475786) See external report for linked test SARS-COV-2 PERFORMING [facility] (test code = 4842233) Negative result for this test determines that SARS-CoV-2 RNA was not present in the specimen above the Limit of Detection (LOD). However, Negative results do not preclude SARS-CoV-2 infection and should not be used as the sole basis for treatment or patient management decisions. Negative results mustbe combined with clinical observations, patient history, and epidemiological information. A false negative result may occur if a specimen is improperly collected, transported or handled. A false negative result should be considered if patient's recent exposures or clinical presentation indicate that COVID-19 (SARS-CoV-2) is likely and diagnostic tests for other causes of illness are negative. Re-testing should be considered in cases of suspected false negatives.The limit of detection for this assay is 100 copies/mL.This SARS CoV-2 test is a real-time RT-PCR test intended for the qualitative detection of nucleic acid from SARS-CoV-2 in a nasopharyngeal swab specimen collected from individuals susp ected of COVID-19 by their healthcare provider.This test has not been Food and Drug Administration (FDA) cleared or approved. This is a modified version of an approved Emergency Use Authorization (EUA) and is in the process of review by the FDA. Once authorized by the FDA, the issued EUA will be effective until the declaration that circumstances exist justifying the authorization of the emergency use of in vitro diagnostic tests for detection and/or diagnosis of COVID-19 is terminated under Section 564(b)(2) of the Act or the EUA is revoked under Section 564(g) of the Act.Testing was performed using the [place] SARS-CoV-2 assay.Fact Sheet for Healthcare Providers:https://www.[employer].canales/thais/ YU_SKVI-XjO-5_TBQ_Ohxv_Llqot_74-362997.pdfFact Sheet for Healthcare Patients:https://www.[employer].[place] [employer]man/thais/WN_MAJS-DaJ-6_Rrttvha_Ikoh_Ccgph_HC_07-846293F6.pdfPerforming Laboratory:[facility] [place] [address] COMPREHENSIVE METABOLIC [id number] 15:17:00 Test Item Value Reference Range Interpretation Comments TOTAL PROTEIN 7.7 gm/dL 6.0-8.3 (BEAKER) (test code = 770) ALBUMIN (BEAKER) 3.7 g/dL 3.5-5.0 (test code = 1145) ALKALINE PHOSPHATASE 84 U/L 40-150 (BEAKER) (test code = 346) BILIRUBIN TOTAL 3.3 mg/dL 0.2-1.2 H (BEAKER) (test code = 377) SODIUM (BEAKER) (test 135 meq/L 136-145 L code = 381) POTASSIUM (BEAKER) 4.2 meq/L 3.5-5.1 (test code = 379) CHLORIDE (BEAKER) 98 meq/L 98-107 (test code = 382) CO2 (BEAKER) (test 28 meq/L 22-29 code = 355) BLOOD UREA NITROGEN 19 mg/dL 7-21 (BEAKER) (test code = 354) CREATININE (BEAKER) 1.08 mg/dL 0.57-1.25 (test code = 358) GLUCOSE RANDOM 449 mg/dL 70-105 HH (BEAKER) (test code = 652) CALCIUM (BEAKER) 10.1 mg/dL 8.4-10.2 (test code = 697) AST (SGOT) (BEAKER) 44 U/L 5-34 H (test code = 353) ALT (SGPT) (BEAKER) 31 U/L 6-55 (test code = 347) EGFR (BEAKER) (test 68 mL/min/1.73 ESTIMA CHILANGO GFR IS code = 1092) sq m NOT ACCURATE CREATININE CLEARANCE IN PREDICTING GLOMERULAR FILTRATION RATE . ESTIMATED GFR I S NOT APPLICABLE FOR DIALYSIS PATIEN TS. Truck Driver Teamster ID - BSSpecimen slightly ictericPROTHROMBIN TIME/[id number] 15:08:00 Test Item Value Reference Range Interpretation Comments PROTIME (BEAKER) (test code = 16.1 seconds 11.9-14.2 H 759) INR (BEAKER) (test code = 370) 1.33 <=5.90 Effective 02/05/2019: PT Reference Range ChangeNew: 11.9-14.2 Previous: 11.7- 14.7RECOMMENDED COUMADIN/WARFARIN INR THERAPY RANGESSTANDARD DOSE: 2.0-3.0 Includes: PROPHYLAXIS for venous thrombosis, systemic embolization; TREATMENT for venous thrombosis and/or pulmonary embolus.HIGH RISK: Target INR is2.5-3.5 for patients wiht mechanical heart valves.BILIRUBIN, [id number] 15:08:00 Test Item Value Reference Range Interpretation Comments BILIRUBIN DIRECT (BEAKER) (test 2.3 mg/dL 0.1-0.5 H code = 706) Truck Driver Teamster ID - BSBLOOD GAS, [id number] 15:06:00 Test Item Value Reference Range Interpretation Comments PH ARTERIAL (BEAKER) (test code = 7.44 7.35-7.45 383) PCO2 ARTERIAL (BEAKER) (test code 42 mm Hg 35-45 = 384) PO2 ARTERIAL (BEAKER) (test code = 79 mm Hg 80-90 L 385) O2 SATURATION ARTERIAL (BEAKER) 96.1 % 96.0-97.0 (test code = 386) HCO3 ARTERIAL (BEAKER) (test code 28 mmol/L 21-29 = 388) BASE EXCESS ARTERIAL (BEAKER) 3.1 mmol/L -2.0-3.0 H (test code = 387) PATIENT TEMPERATURE (BEAKER) (test 37.0 code = 1818) FIO2 (BEAKER) (test code = 1819) 21.0 URINALYSIS W/ REFLEX URINE [id number] 15:05:00 Test Item Value Reference Range Interpretation Comments COLOR (BEAKER) (test code = 470) Yellow CLARITY (BEAKER) (test code = Clear 469) SPECIFIC GRAVITY UA (BEAKER) 1.018 1.001-1.035 (test code = 468) PH UA (BEAKER) (test code = 467) 6.5 5.0-8.0 PROTEIN UA (BEAKER) (test code = Negative Negative 464) GLUCOSE UA (BEAKER) (test code = >1000 mg/dL Negative A 365) KETONES UA (BEAKER) (test code = Negative Negative 371) BILIRUBIN UA (BEAKER) (test code Negative Negative = 462) BLOOD UA (BEAKER) (test code = Negative Negative 461) NITRITE UA (BEAKER) (test code = Negative Negative 465) LEUKOCYTE ESTERASE UA (BEAKER) Negative Negative (test code = 466) UROBILINOGEN UA (BEAKER) (test 0.2 mg/dL 0.2-1.0 code = 463) RBC UA (BEAKER) (test code = 519) < /HPF WBC UA (BEAKER) (test code = 520) 1 /HPF SOURCE(BEAKER) (test code = 2795) Truck Driver Teamster ID - [auto]Truck Driver Teamster ID - techCBC W/PLT COUNT & AUTO DIFFERENTIAL 2020-06-22 14:58:00 Test Item Value Reference Range Interpretation Comments WHITE BLOOD CELL COUNT (BEAKER) 4.1 K/ L 3.5-10.5 (test code = 775) RED BLOOD CELL COUNT (BEAKER) 4.77 M/ L 4.63-6.08 (test code = 761) HEMOGLOBIN (BEAKER) (test code = 14.4 GM/DL 13.7-17.5 410) HEMATOCRIT (BEAKER) (test code = 43.1 % 40.1-51.0 411) MEAN CORPUSCULAR VOLUME (BEAKER) 90.4 fL 79.0-92.2 (test code = 753) MEAN CORPUSCULAR HEMOGLOBIN 30.2 pg 25.7-32.2 (BEAKER) (test code = 751) MEAN CORPUSCULAR HEMOGLOBIN CONC 33.4 GM/DL 32.3-36.5 (BEAKER) (test code = 752) RED CELL DISTRIBUTION WIDTH 16.1 % 11.6-14.4 H (BEAKER) (test code = 412) PLATELET COUNT (BEAKER) (test 124 K/CU MM 150-450 L code = 756) MEAN PLATELET VOLUME (BEAKER) 10.5 fL 9.4-12.4 (test code = 754) NUCLEATED RED BLOOD CELLS 0 /100 WBC 0-0 (BEAKER) (test code = 413) NEUTROPHILS RELATIVE PERCENT 64 % (BEAKER) (test code = 429) LYMPHOCYTES RELATIVE PERCENT 21 % (BEAKER) (test code = 430) MONOCYTES RELATIVE PERCENT 10 % (BEAKER) (test code = 431) EOSINOPHILS RELATIVE PERCENT 3 % (BEAKER) (test code = 432) BASOPHILS RELATIVE PERCENT 1 % (BEAKER) (test code = 437) NEUTROPHILS ABSOLUTE COUNT 2.63 K/ L 1.78-5.38 (BEAKER) (test code = 670) LYMPHOCYTES ABSOLUTE COUNT 0.87 K/ L 1.32-3.57 L (BEAKER) (test code = 414) MONOCYTES ABSOLUTE COUNT (BEAKER) 0.43 K/ L 0.30-0.82 (test code = 415) EOSINOPHILS ABSOLUTE COUNT 0.13 K/ L 0.04-0.54 (BEAKER) (test code = 416) BASOPHILS ABSOLUTE COUNT (BEAKER) 0.05 K/ L 0.01-0.08 (test code = 417) IMMATURE GRANULOCYTES-RELATIVE 1 % 0-1 PERCENT (BEAKER) (test code = 2801) RAD, BONE DENSITY [id number] 14:10:00Reason for Exam:->liver transplant evaluationFINAL REPORT Bone density study, 06/22/2020 Clinical History: Screening Bone mineral density measurementLumbar spine2.018 gm/oa4Eyvdnwb neck1.232 gm/cm2 Standard deviation from young adult population (T-score)Lumbar spine6.6Femoral neck1.2 Standard deviation for age adjusted population (Z-score)Lumbar spine6.4Femoral neck1.9 According to medical literature, this corresponds to no increased risk of an osteoporotic fracture of the lumbar spine as compared to the young adultpopulation. The femoral neck bone mineral density corresponds to no increased risk of an osteoporotic fracture as compared to the young adult population. Impression: No evidence of osteoporosis. Complete computer analysis will be sent shortly. Diagnostic criteria for osteoporosisBMD: Bone mineraldensity Normal: BMD measurement less than one standard deviation from young adult populationOsteopenia: BMD measurement between 1 and 2.5 standard deviationsOsteoporosis: BMD measurement greater than 2.5 standard deviationsSevere osteoporosis: Osteoporosis and one or more fragility fractures Signed: Octavio Forrestepspeedy Verified Date/Time: 06/22/2020 14:10:11 Reading Location: [address] Mammo Reading Room T SPOT TB 2020-06-18 11:14:00 Test Item Value Reference Range Interpretation Comments T-SPOT TB (BEAKER) (test code = Negative 210) NEG CONTROL SPOT COUNT (BEAKER) 0 (test code = 1684) PANEL A SPOT (BEAKER) (test code = 1 1685) PANEL B SPOT (BEAKER) (test code = 2 8076) POS CONTROL SPOT CT (BEAKER) (test 0 code = 1687) SCAN RESULT (test code = 0028167) BLOOD [id number] 17:00:00 Test Item Value Reference Range Interpretation Comments CULTURE (BEAKER) (test No growth in 5 days code = 1095) CRYPTOCOCCAL [id number] 14:51:00 Test Item Value Reference Range Interpretation Comments CRYPTOCOCCAL ANTIGEN, SERUM Negative Negative, Interference (BEAKER) (test code = 1828) EBV ANTIBODY, [id number] 14:30:00 Test Item Value Reference Range Interpretation Comments DARYL SCANLON VIRAL CAPSID Negative Negative, Equivocal ANTIGEN IGM (BEAKER) (test code = 3418) Daryl Scanlon Viral Capsid Antigen IgM Result Interpretation: </= 0.8 Al Negative 0.9-1.0 Al Equivocal >/= 1.1 Al PositivePOCT-GLUCOSE METER 2020-06-11 14:02:00 Test Item Value Reference Range Interpretation Comments POC-GLUCOSE METER 227 mg/dL 70-110 H : [facility] (BEAKER) (test code = HANNAH Jones [facility], 1538) [address]: Truck Driver Teamster/Techni bradford ID = [id number] for CHRISTINA SCOTT RUBELLA ANTIBODY, [id number] 11:39:00 Test Item Value Reference Range Interpretation Comments RUBELLA IGG QUANTITATION (BEAKER) > IU/mL <8.0 H (test code = 572) Rubella IgG Result Interpretation: </= 7.0 IU/mL Negative - Presumed non- immune 8.0 - 9.9 IU/mL Equivocal >= 10.0 IU/mL Positive - Presumed immune CYTOMEGALOVIRUS ANTIBODY, [id number] 11:39:00 Test Item Value Reference Range Interpretation Comments CYTOMEGALOVIRUS, IGG (BEAKER) Positive Negative, Equivocal A (test code = 3429) CMV IgG Result Interpretation: </= 0.8 Al Negative 0.9-1.0 Al Equivocal >/=1.1 Al PositiveCYTOMEGALOVIRUS ANTIBODY, [id number] 11:39:00 Test Item Value Reference Range Interpretation Comments CYTOMEGALOVIRUS IGM ANTIBODY Negative Negative, Equivocal (BEAKER) (test code = 3437) CMV IgM Result Interpretation: </= 0.8 Al Negative 0.9-1.0 Al Equivocal >/= 1.1 Al PositiveEBV ANTIBODY, [id number] 11:39:00 Test Item Value Reference Range Interpretation Comments DARYL SCANLON VIRAL CAPSID Positive Negative, Equivocal A ANTIGEN IGG ([facility]) (test code = 3415) Daryl Scanlon Viral Capsid Antigen IgG Result Interpretation: </= 0.8 Al Negative 0.9-1.0 Al Equivocal >/= 1.1 Al PositiveRUBELLA ANTIBODY, IGG 2020-06-11 11:39:00 Test Item Value Reference Range Interpretation Comments RUBELLA IGG QUANTITATION ([facility]) > IU/mL <8.0 H (test code = 572) Rubella IgG Result Interpretation: </= 7.0 IU/mL Negative - Presumed non- immune 8.0 - 9.9 IU/mL Equivocal >= 10.0 IU/mL Positive - Presumed immune VARICELLA ZOSTER ANTIBODY, [id number] 11:39:00 Test Item Value Reference Range Interpretation Comments VARICELLA ZOSTER IGG (AL) ([facility]) 5.9 (test code = 3197) VARICELLA ZOSTER RESULT INTERPRETATIONS: <=0.8 Al Nonreactive: Presumed non-immune to VZV 0.9-1.0 Al Equivocal >=1.1 Al Reactive: Presumed immune to VZVHEPATITIS C PCR, [id number] 06:40:00 Test Item Value Reference Range Interpretation Comments HCV RESULT COMPONENT HCV RNA not detected HCV RNA not detected (SEAN) (test code = 2699) This test uses a Real-Time Polymerase Chain Reaction (RT-PCR) methodology and was performed using CHON Ampliprep/CHON TaqMan HCV test kit version 2.0 ([employer]).Reportable range for this assay is 15 - 100,000,000 IU per mL (1.18 - 8.00 Log IU/mL).POCT-GLUCOSE [id number] 06:15:00 Test Item Value Reference Range Interpretation Comments POC-GLUCOSE METER 113 mg/dL 70-110 H : Notified RN/: (SEAN) (test code = TESTED AT [facility] 4436 5936) [facility], [address]: Truck Driver Teamster/Techni bradford ID = [id number] for SURYA CHEEMA [id number] 05:37:00 Test Item Value Reference Range Interpretation Comments PHOSPHORUS (BEAKER) (test code = 2.8 mg/dL 2.3-4.7 604) Truck Driver Teamster ID - KELSIE [id number] 05:37:00 Test Item Value Reference Range Interpretation Comments MAGNESIUM (BEAKER) (test code = 1.1 mg/dL 1.6-2.6 L 627) Truck Driver Teamster ID - KELSIE MCOMPREHENSIVE METABOLIC [id number] 05:37:00 Test Item Value Reference Range Interpretation Comments TOTAL PROTEIN 6.0 gm/dL 6.0-8.3 (BEAKER) (test code = 770) ALBUMIN (BEAKER) 3.1 g/dL 3.5-5.0 L (test code = 1145) ALKALINE PHOSPHATASE 75 U/L 40-150 (BEAKER) (test code = 346) BILIRUBIN TOTAL 7.1 mg/dL 0.2-1.2 H (BEAKER) (test code = 377) SODIUM (BEAKER) (test 140 meq/L 136-145 code = 381) POTASSIUM (BEAKER) 3.3 meq/L 3.5-5.1 L (test code = 379) CHLORIDE (BEAKER) 104 meq/L 98-107 (test code = 382) CO2 (BEAKER) (test 29 meq/L 22-29 code = 355) BLOOD UREA NITROGEN 14 mg/dL 7-21 (BEAKER) (test code = 354) CREATININE (BEAKER) 0.74 mg/dL 0.57-1.25 (test code = 358) GLUCOSE RANDOM 111 mg/dL 70-105 H (BEAKER) (test code = 652) CALCIUM (BEAKER) 8.1 mg/dL 8.4-10.2 L (test code = 697) AST (SGOT) (BEAKER) 36 U/L 5-34 H (test code = 353) ALT (SGPT) (BEAKER) 19 U/L 6-55 (test code = 347) EGFR (BEAKER) (test 105 ESTIMATE D GFR IS code = 1092) mL/min/1.73 sq NOT ACCURA TE m CREATININE CLEARANCE IN PREDICTING GLOMERULAR FILTRATION RATE . ESTIMATED GFR I S NOT APPLICABLE FOR DIALYSIS PATIEN TS. Truck Driver Teamster ID - KELSIE MSpecimen moderately ictericBLOOD [id number] 05:00:00 Test Item Value Reference Range Interpretation Comments CULTURE (BEAKER) (test No growth in 5 days code = 1095) PROTHROMBIN [id number] 04:44:00 Test Item Value Reference Range Interpretation Comments PROTIME (BEAKER) (test code = 16.1 seconds 11.9-14.2 H 759) INR (BEAKER) (test code = 370) 1.33 <=5.90 Effective 02/05/2019: PT Reference Range ChangeNew: 11.9-14.2 Previous: 11.7- 14.7RECOMMENDED COUMADIN/WARFARIN INR THERAPY RANGESSTANDARD DOSE: 2.0-3.0 Includes: PROPHYLAXIS for venous thrombosis, systemic embolization; TREATMENT for venous thrombosis and/or pulmonary embolus.HIGH RISK: Target INR is2.5-3.5 for patients wiht mechanical heart valves.CBC W/PLT COUNT & AUTO [id number] 04:38:00 Test Item Value Reference Range Interpretation Comments WHITE BLOOD CELL COUNT (BEAKER) 3.1 K/ L 3.5-10.5 L (test code = 775) RED BLOOD CELL COUNT (BEAKER) 3.75 M/ L 4.63-6.08 L (test code = 761) HEMOGLOBIN (BEAKER) (test code = 11.3 GM/DL 13.7-17.5 L 410) HEMATOCRIT (BEAKER) (test code = 34.9 % 40.1-51.0 L 411) MEAN CORPUSCULAR VOLUME (BEAKER) 93.1 fL 79.0-92.2 H (test code = 753) MEAN CORPUSCULAR HEMOGLOBIN 30.1 pg 25.7-32.2 (BEAKER) (test code = 751) MEAN CORPUSCULAR HEMOGLOBIN CONC 32.4 GM/DL 32.3-36.5 (BEAKER) (test code = 752) RED CELL DISTRIBUTION WIDTH 16.4 % 11.6-14.4 H (BEAKER) (test code = 412) PLATELET COUNT (BEAKER) (test 105 K/CU MM 150-450 L code = 756) MEAN PLATELET VOLUME (BEAKER) 9.9 fL 9.4-12.4 (test code = 754) NUCLEATED RED BLOOD CELLS 0 /100 WBC 0-0 (BEAKER) (test code = 413) NEUTROPHILS RELATIVE PERCENT 64 % (BEAKER) (test code = 429) LYMPHOCYTES RELATIVE PERCENT 18 % (BEAKER) (test code = 430) MONOCYTES RELATIVE PERCENT 11 % (BEAKER) (test code = 431) EOSINOPHILS RELATIVE PERCENT 5 % (BEAKER) (test code = 432) BASOPHILS RELATIVE PERCENT 1 % (BEAKER) (test code = 437) NEUTROPHILS ABSOLUTE COUNT 2.00 K/ L 1.78-5.38 (BEAKER) (test code = 670) LYMPHOCYTES ABSOLUTE COUNT 0.57 K/ L 1.32-3.57 L (BEAKER) (test code = 414) MONOCYTES ABSOLUTE COUNT (BEAKER) 0.35 K/ L 0.30-0.82 (test code = 415) EOSINOPHILS ABSOLUTE COUNT 0.14 K/ L 0.04-0.54 (BEAKER) (test code = 416) BASOPHILS ABSOLUTE COUNT (BEAKER) 0.02 K/ L 0.01-0.08 (test code = 417) IMMATURE GRANULOCYTES-RELATIVE 1 % 0-1 PERCENT (BEAKER) (test code = 2801) BLOOD [id number] 02:00:00 Test Item Value Reference Range Interpretation Comments CULTURE ([facility]) (test No growth in 5 days code = 1095) POCT-GLUCOSE [id number] 01:01:00 Test Item Value Reference Range Interpretation Comments POC-GLUCOSE METER 124 mg/dL 70-110 H : Notified RN/MD: ([facility]) (test code = TESTED AT [place] [address]) [facility] [address]: Truck Driver Teamster/Techni bradford ID = [id number] for SURYA CHEEMA FLOW CYTOMETRY [id number] 19:42:00 Test Item Value Reference Range Interpretation Comments FLOW CYTOMETRY RESULT See Separate Report POINTER ([facility]) (test code = 2758) FLOW CYTOMETRY AP CASE # [id number] ([facility]) (test code = 2759) POCT-GLUCOSE [id number] 17:31:00 Test Item Value Reference Range Interpretation Comments POC-GLUCOSE METER 114 mg/dL 70-110 H : TESTED A T [facility] 6720 ([facility]) (test code = HANNAH Jones [facility], 1538) [address]: Truck Driver Teamster/Techni bradford ID = [id number] for QUEEN GANDHI HEPATOBILIARY [id number] 16:39:00Hx of ERCP w/ sphincterotomy and stentUnlisted Reason for Exam - Click Yes and Enter Reason Below->NoFINAL REPORT PROCEDURE: HEPATOBILIARY SCAN CPT CODE: 11055 INDICATION: Cholecystitis, biliary stent PROTOCOL: 8.7 mCi of Tc-99m mebrofenin was injected intravenously. Images of the upper abdomen were obtained for approximately 75 minutes after tracer injection and at four hours after injection. FINDINGS: Initial tracer uptake into the liver is delayed and decreased. Subsequent tracer clearance from the liver is moderately to markedly delayed. There is good visualization of the extrahepatic biliary duct, and the tracer appears appropriately inthe small bowel. The gallbladder is never visualized. IMPRESSION:1. Diffuse hepatocellular dysfunctio n.2. Cholecystitis. Signed: Manpreet Gupat MDReport Verified Date/Time: 06/10/2020 16:39:44 Reading Location: [address] Reading Room FLOW [id number] 13:26:00Flow Cytometry Report Case: [id number] Authorizing Provider: Katt Cornejo MD Collected: 06/09/2020 01:09 PM Ordering Location: [address] Received: 06/09/2020 03:09 PM Service Pathologist: Tomi Ramos MD Specimen: Other PERIPHERAL BLOOD,FLOW CYTOMETRY:- NO ABERRANT T LYMPHOCYTE POPULATION-NO MONOTYPIC B LYMPHOCYTE POPULATION-NO CIRCULATING BLASTS-SEE COMMENT Flow cytometryis performed on a peripheral blood sample from a 70 year old man with 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 There is no aberrant T cell population or expansion of T cell subsets identified. LGLs comprise <1% of the cellularity. No monotypic B lymphocyte population identified. No circulating blasts identified. Clinical correlation is recommended. [id number] year old man with questionable historyof LGL leukemia.PERIPHERAL BLOODCD8, surface-[place], CD56, surface-Lambda, CD5, CD19, CD10, CD3, CD20, CD4, CD45, CD14, CD13, CD33, CD117, CD34, CD16, CD57, CD7, BL8Mcdirzdx Viability: 99.1% Numberof Events Acquired: [id number] The following populations are identified: Blasts: No dim CD45+ CD34+ blasts. Lymphocytes: Bright CD45+ lymphocytes comprise 8.5% of total cells. T cells show a CD4:CD8 ratio of 5.2 and normal expression of the gunn T cell antigens CD3 and CD5. B cells are polytypic with a kappa:lambda ratio of 1.4. Myeloid/monocytic populations: As identified by CD45 and light scatter characteristics, granulocytes comprise the majority of cells analyzed, and CD14+ monocytes comprise 7.0% of total cells. The remaining events analyzed represent nonviable cells, non-hematolymphoid cells, anddebris.These tests were developed and their performance characteristics determined by [facility] They have not been cleared or approved by the U.S. Food and Drug Administration. The FDA has determined that such clearance or approval is not necessary. It should not be regarded as investigational or for research. This laboratory is certified under the Clinical Laboratory Improvement Amendments of 1988 ("CLIA") as qualified to perform high-complexity clinical testing.[facility], Department of Pathology, [address] [place] [address], [facility], [address] [place] [address], CCRR-GLUCOSE [id number] 12:57:00 Test Item Value Reference Range Interpretation Comments POC-GLUCOSE METER 124 mg/dL 70-110 H : TESTED A T [facility] 6720 (SEAN) (test code = [facility], 1538) [address]: Truck Driver Teamster/Techni bradford ID = [id number] for QUEEN GANDHI CRYPTOCOCCAL [id number] 12:12:00 Test Item Value Reference Range Interpretation Comments CRYPTOCOCCAL ANTIGEN, SERUM Negative Negative, Interference (SEAN) (test code = 1828) ANTI-MITOCHONDRIAL AB, REFLEX TO [id number] 11:36:00 Test Item Value Reference Range Interpretation Comments SCAN RESULT (test code = 8704759) [id number] 11:08:00 Test Item Value Reference Range Interpretation Comments RPR SCREEN (BEAKER) (test code = Nonreactive Nonreactive 420) MR, ABDOMEN, [id number] 10:23:00Unlisted Reason for Exam - Click Yes and Enter Reason Below->YesUnlisted Reason for Exam->liver transplant evaluationFINAL REPORT MRI of the abdomen with and without contrast Clinical History: Unlisted Reason for Examliver transplant evaluation Technique: Multiplanar and multisequence MR images of the abdomen are obtained before and after intravenous contrast administration. Contrast is administered to evaluate neoplasm and vasculature. Comparison: Ultrasound dated June 04, 2020, performed at an outside institution Discussion: There are trace bilateral pleural effusions. Liver is cirrhotic. There is no biliary ductal dilatation. Gallbladder contains several stones. Is distended, and thick- walled, correlate clinically for acute cholecystitis. Note is also made of hyperemia in liver parenchyma adjacent to the gallbladder. There are several additional scattered foci wedge-shaped earlyenhancement in liver likely to reflect perfusion anomalies. No suspicious liver mass is identified. Hepatic vasculature is patent. Main portal vein measures 12 mm in diameter. There is a small nonocclusive thrombus in a branch of the SMV. Varices are noted. The spleen is enlarged and measures 20 cm sagittally. Pancreas, adrenal glands are normal. Kidneys demonstrate no mass or hydronephrosis. There is a small amount of ascites. Several mildly enlarged mary hepatis lymph nodes are nonspecific and could be reactive. Visualized bowel is unremarkable. No suspicious bony lesion is identified. Impression: Cirrhosis, splenomegaly, and small amount of ascites. No suspicious liver mass is identified. Cholelithiasis. Gallbladder is distended with wall thickening. There is also mild hyperemia in liver parenchyma adjacent to the gallbladder. Findings are suspicious for acute cholecystitis. Consider correlation with HIDA scan. Several enlarged mary hepatis lymph nodes are nonspecific and may be reactive. Signed: Esperanza Mataeport Verified Date/Time: 06/10/2020 10:23:23 Reading Location: [facility] C013X [facility] Consult Reading Room ANTI-NUCLEAR ANTIBODY (SUKHWINDER)2020-06-10 10:09:00 Test Item Value Reference Range Interpretation Comments ANTI-NUCLEAR ANTIBODY (SUKHWINDER) (BEAKER) Negative Negative (test code = 418) Test performed by IFA method.Test performed by IFA method.POCT-GLUCOSE METER 2020-06-10 06:45:00 Test Item Value Reference Range Interpretation Comments POC-GLUCOSE METER 130 mg/dL 70-110 H : Notified RN/MD: (BEAKER) (test code = TESTED AT [facility] 4354 4074) [facility], [address]: Truck Driver Teamster/Techni bradford ID = [id number] for SURYA CHEEMA CBC W/PLT COUNT & AUTO [id number] 04:57:00 Test Item Value Reference Range Interpretation Comments WHITE BLOOD CELL COUNT (BEAKER) 4.1 K/ L 3.5-10.5 (test code = 775) RED BLOOD CELL COUNT (BEAKER) 3.78 M/ L 4.63-6.08 L (test code = 761) HEMOGLOBIN (BEAKER) (test code = 11.2 GM/DL 13.7-17.5 L 410) HEMATOCRIT (BEAKER) (test code = 35.0 % 40.1-51.0 L 411) MEAN CORPUSCULAR VOLUME (BEAKER) 92.6 fL 79.0-92.2 H (test code = 753) MEAN CORPUSCULAR HEMOGLOBIN 29.6 pg 25.7-32.2 (BEAKER) (test code = 751) MEAN CORPUSCULAR HEMOGLOBIN CONC 32.0 GM/DL 32.3-36.5 L (BEAKER) (test code = 752) RED CELL DISTRIBUTION WIDTH 16.5 % 11.6-14.4 H (BEAKER) (test code = 412) PLATELET COUNT (BEAKER) (test code 96 K/CU MM 150-450 L = 756) MEAN PLATELET VOLUME (BEAKER) 10.0 fL 9.4-12.4 (test code = 754) NUCLEATED RED BLOOD CELLS (BEAKER) 0 /100 WBC 0-0 (test code = 413) NEUTROPHILS RELATIVE PERCENT 75 % (BEAKER) (test code = 429) LYMPHOCYTES RELATIVE PERCENT 12 % (BEAKER) (test code = 430) MONOCYTES RELATIVE PERCENT 8 % (BEAKER) (test code = 431) EOSINOPHILS RELATIVE PERCENT 3 % (BEAKER) (test code = 432) BASOPHILS RELATIVE PERCENT 1 % (BEAKER) (test code = 437) NEUTROPHILS ABSOLUTE COUNT 3.02 K/ L 1.78-5.38 (BEAKER) (test code = 670) LYMPHOCYTES ABSOLUTE COUNT 0.49 K/ L 1.32-3.57 L (BEAKER) (test code = 414) MONOCYTES ABSOLUTE COUNT (BEAKER) 0.34 K/ L 0.30-0.82 (test code = 415) EOSINOPHILS ABSOLUTE COUNT 0.13 K/ L 0.04-0.54 (BEAKER) (test code = 416) BASOPHILS ABSOLUTE COUNT (BEAKER) 0.02 K/ L 0.01-0.08 (test code = 417) IMMATURE GRANULOCYTES-RELATIVE 1 % 0-1 PERCENT (BEAKER) (test code = 2801) [id number] 04:57:00 Test Item Value Reference Range Interpretation Comments PHOSPHORUS (BEAKER) (test code = 2.6 mg/dL 2.3-4.7 604) Truck Driver [employer]ster ID - [id number] 04:57:00 Test Item Value Reference Range Interpretation Comments MAGNESIUM (BEAKER) (test code = 1.1 mg/dL 1.6-2.6 L 627) Truck Driver Teamster ID - BSCOMPREHENSIVE METABOLIC [id number] 04:57:00 Test Item Value Reference Range Interpretation Comments TOTAL PROTEIN 6.2 gm/dL 6.0-8.3 (BEAKER) (test code = 770) ALBUMIN (BEAKER) 3.3 g/dL 3.5-5.0 L (test code = 1145) ALKALINE PHOSPHATASE 79 U/L 40-150 (BEAKER) (test code = 346) BILIRUBIN TOTAL 9.7 mg/dL 0.2-1.2 H (BEAKER) (test code = 377) SODIUM (BEAKER) (test 140 meq/L 136-145 code = 381) POTASSIUM (BEAKER) 3.6 meq/L 3.5-5.1 (test code = 379) CHLORIDE (BEAKER) 103 meq/L 98-107 (test code = 382) CO2 (BEAKER) (test 28 meq/L 22-29 code = 355) BLOOD UREA NITROGEN 17 mg/dL 7-21 (BEAKER) (test code = 354) CREATININE (BEAKER) 0.88 mg/dL 0.57-1.25 (test code = 358) GLUCOSE RANDOM 124 mg/dL 70-105 H (BEAKER) (test code = 652) CALCIUM (BEAKER) 8.9 mg/dL 8.4-10.2 (test code = 697) AST (SGOT) (BEAKER) 30 U/L 5-34 (test code = 353) ALT (SGPT) (BEAKER) 19 U/L 6-55 (test code = 347) EGFR (BEAKER) (test 86 mL/min/1.73 ESTIMA CHILANGO GFR IS code = 1092) sq m NOT ACCURATE CREATININE CLEARANCE IN PREDICTING GLOMERULAR FILTRATION RATE . ESTIMATED GFR I S NOT APPLICABLE FOR DIALYSIS PATIEN TS. Truck Driver Teamster ID - BSSpecimen markedly ictericPROTHROMBIN TIME/[id number] 04:51:00 Test Item Value Reference Range Interpretation Comments PROTIME (BEAKER) (test code = 15.8 seconds 11.9-14.2 H 759) INR (BEAKER) (test code = 370) 1.30 <=5.90 Effective 02/05/2019: PT Reference Range ChangeNew: 11.9-14.2 Previous: 11.7- 14.7RECOMMENDED COUMADIN/WARFARIN INR THERAPY RANGESSTANDARD DOSE: 2.0-3.0 Includes: PROPHYLAXIS for venous thrombosis, systemic embolization; TREATMENT for venous thrombosis and/or pulmonary embolus.HIGH RISK: Target INR is2.5-3.5 for patients wiht mechanical heart valves.POCT-GLUCOSE [id number] 00:11:00 Test Item Value Reference Range Interpretation Comments POC-GLUCOSE METER 94 mg/dL 70-110 : Notified RN/MD: TESTED (SEAN) (test code = AT [facility] [address] [facility] 1538) [facility], [facility] 30: Truck Driver Teamster/Techni bradford ID = [id number] for SURYA OMALLEY HEMOGLOBIN [id number] 20:00:00 Test Item Value Reference Range Interpretation Comments HEMOGLOBIN A1C (BENILA) (test code = 6.1 % 4.3-6.1 368) CT, CHEST, WITHOUT [id number] 19:17:00Unlisted Reason for Exam - Click Yes and Enter Reason Below->YesUnlisted Reason for Exam->liver transplant evaluationFINAL REPORT Chest CT without contrast CLINICAL HISTORY: Liver transplant evaluation. TECHNIQUE: Contiguous axial images of the chest without contrast. This exam was performed according to the departmental dose optimization program which includes automated exposure control, adjustment of the mA and/or kV according to the patient size, and/or use of an iterative reconstruction technique. COMPARISON: None FINDINGS:Right upper extremity PICC with tip terminating in the SVC.Tracebilateral pleural effusions with adjacent consolidative airspace opacities likely representing passive atelectasis. Otherwise no airspace consolidation. No pneumothorax. Mild intralobular septal thickening suggestive of interstitial pulmonary edema. Few bilateral pulmonary nodules the largest of whichis in the left lower lobe measuring 5 mm. The trachea is midline and patent.The heart and great vessels are normal in size. Mild coronary artery calcifications. No pericardial effusion. There is no evid ence of axillary, mediastinal, or hilar lymphadenopathy. Soft tissues are unremarkable. The thyroid gland is unremarkable. The esophagus is somewhat patulous distally with paraesophageal varices noted.No aggressive osseous lesions or acute fractures. Multilevel degenerative changes of the thoracic spi ne. Nodular contour of the liver consistent with cirrhosis. Trace intra- abdominal ascites. Cholelithiasis with incompletely evaluated gallbladder wall thickening, nonspecific in the setting of cirrhosis. Splenomegaly. IMPRESSION: No acute intrathoracic process. Trace bilateral pleural effusions with adjacent passive atelectasis. Morphologic changes of cirrhosis with sequela of portal hypertension. Cholelithiasis with incompletely visualized gallbladder wall thickening is nonspecific in setting of cirrhosis. If there is clinical concern for acute cholecystitis recommend further evaluation with HIDAscan. Multiple bilateral pulmonary nodules the largest of which measures 5 mm in the left lower lobe. Recommend CT chest in 12 months to ensure stability if patient is high risk. Signed: Santos Benavidez MDReport Verified Date/Time: 06/09/2020 19:17:10 RAD, MANDIBLE, MIN 4 [id number] 18:33:00Reason for exam:->liver transplant evaluationShould this be performed at the bedside?->YesFINAL REPORT TECHNIQUE: RAD, MANDIBLE, MIN 4 VIEWS INDICATION: liver transplant evaluation COMPARISON: None. FINDINGS:No acute fracture or malalignment. Visualized paranasal sinuses and mastoid air cells are clear. No air-fluid levels. Nasal septum is midline.. IMPRESSION:No acute osseous abnormality. Signed: Logan Archibald MDReport Verified Date/Time: 06/09/2020 18:33:37 Reading Location: [facility] C013 Transitional Reading Room PSA 2020-06-09 17:58:00 Test Item Value Reference Range Interpretation Comments PROSTATE SPECIFIC ANTIGEN (BEAKER) 2.1 ng/mL 0.0-4.0 (test code = 844) Truck Driver Teamster ID - BSVITAMIN D, [id number] 17:58:00 Test Item Value Reference Range Interpretation Comments VITAMIN D 25-OH (BEAKER) (test 13.9 ng/mL 6.6-49.9 code = 2764) Effective 06/20/2017: Reference Range ChangeNew: 6.6-49.9 ng/mL Previous: 13.0-47.8 ng/mLRecommended Vitamin D Target Range: 30.0-40.0 ng/mLOperator ID - BSHEPATITIS C [id number] 17:50:00 Test Item Value Reference Range Interpretation Comments HEPATITIS C ANTIBODY (BEAKER) (test Reactive Nonreactive A code = 367) Truck Driver Teamster ID - BSCARCINOEMBRYONIC ANTIGEN (CEA)2020-06-09 17:49:00 Test Item Value Reference Range Interpretation Comments CARCINOEMBRYONIC ANTIGEN (BEAKER) 5.3 ng/mL 0.0-5.0 H (test code = 685) Truck Driver Teamster ID - BSHEPATITIS B CORE ANTIBODY, [id number] 17:49:00 Test Item Value Reference Range Interpretation Comments HEPATITIS B CORE IGM ANTIBODY Nonreactive Nonreactive (BEAKER) (test code = 645) Truck Driver Teamster ID - BSHEPATITIS A ANTIBODY, [id number] 17:49:00 Test Item Value Reference Range Interpretation Comments HEPATITIS A IGM ANTIBODY (BEAKER) Nonreactive Nonreactive (test code = 498) Truck Driver Teamster ID - BSHIV-1 ANTIGEN WITH HIV-1/2 [id number] 17:49:00 Test Item Value Reference Range Interpretation Comments HIV-1 ANTIGEN WITH HIV 1\\T\\2 Nonreactive Nonreactive ANTIBODY (2) (BEAKER) (test code = 2586) Truck Driver Teamster ID - [id number] 17:26:00 Test Item Value Reference Range Interpretation Comments ETHANOL (BEAKER) (test code = 400) < mg/dL <=10 Truck Driver Teamster ID - BSPOCT-GLUCOSE [id number] 15:53:00 Test Item Value Reference Range Interpretation Comments POC-GLUCOSE METER 231 mg/dL 70-110 H : TESTED A T [facility] 6720 (BEAKER) (test code = [place], 1538) [id number]: Truck Driver Teamster/Techni bradford ID = [id number] for QUEEN GANDHI [id number] 15:32:00 Test Item Value Reference Range Interpretation Comments T4 TOTAL (BEAKER) (test code = 895) 7.6 ug/dL 4.9-11.7 Truck Driver Teamster ID - [id number] 15:32:00 Test Item Value Reference Range Interpretation Comments THYROID STIMULATING HORMONE 1.004 uIU/mL 0.350-4.940 (BEAKER) (test code = 772) Truck Driver Teamster ID - [id number] 15:12:00 Test Item Value Reference Range Interpretation Comments TRANSFERRIN (BEAKER) (test code = 176 mg/dL 174-382 541) Truck Driver Teamster ID - BSSpecimen markedly [id number] 15:05:00 Test Item Value Reference Range Interpretation Comments FIBRINOGEN LEVEL (BEAKER) (test 506 mg/dl 225-434 H code = 658) [id number] 15:05:00 Test Item Value Reference Range Interpretation Comments PARTIAL THROMBOPLASTIN TIME 30.4 seconds 22.5-36.0 (BEAKER) (test code = 760) BLOOD GAS, [id number] 14:01:00 Test Item Value Reference Range Interpretation Comments PH ARTERIAL (BEAKER) (test code = 7.40 7.35-7.45 383) PCO2 ARTERIAL (BEAKER) (test code 41 mmHg 35-45 = 384) PO2 ARTERIAL (BEAKER) (test code = 58 mmHg 80-90 L 385) O2 SATURATION ARTERIAL (BEAKER) 91.6 % 96.0-97.0 L (test code = 386) HCO3 ARTERIAL (BEAKER) (test code 25 mmol/L 21-29 = 388) BASE EXCESS ARTERIAL (BEAKER) 0.0 mmol/L -2.0-3.0 (test code = 387) PATIENT TEMPERATURE (BEAKER) (test 35.8 C code = 1818) FIO2 (BEAKER) (test code = 1819) 21.0 % BLOOD [id number] 12:02:00 Test Item Value Reference Range Interpretation Comments CULTURE (BEAKER) A From Aerobi c Bottle (test code = Only Coagulase 1095) negative Staphylococcus GRAM STAIN From aerobic RESULT (BEAKER) bottle only: (test code = gram positive 1123) cocci in clusters U/S, HEPATIC PORTAL VESSEL WITH [id number] 11:55:00Reason for exam:- >HCC and rule out PVTFINAL REPORT TECHNIQUE: Grayscale ultrasound of the abdomen with color Doppler and spectral Doppler ultrasound of the portal/hepatic vasculature. INDICATION: HCC and rule out PVT. COMPARISON: [facility] ultrasound from 06/04/2020. FINDINGS: LIVER: Smooth liver contour. No focal liver lesions. HEPATIC VASCULATURE: Portal veins are patent with normal waveform and directionality. Flow velocity in the main portal vein is within normal limits. The hepatic veins and confluence are patent. The main portal vein measures 1.1 cm in diameter. The hepatic arterial resistive indices range from 0.6-0.8 with a proper hepatic arterial acceleration time of 0.06 seconds. BILIARY:Gallbladder: Sludge and stones in the gallbladder. The gallbladder is not distended. The mild gallbladder wallthickening is nonspecific and could be due to the portal hypertension.. Negative sonographic Barker s ign.Common bile duct measures 0.5 cm, within normal limits. No intrahepatic biliary ductal dilatation. PANCREAS: Incompletely visualized due to overlying bowel gas. SPLEEN: The spleen is enlarged at 18.3 cm in length. PERITONEUM: No free fluid. KIDNEYS: Normal in size bilaterally. No hydronephrosis. No sonographically evident solid mass lesion. MIDLINE VASCULATURE: The visualized inferior vena cava is patent. The maximum visualized aortic diameter is 2.1 cm. Splenic artery and vein are patent. IMPRESSION: 1.The hepatic vasculature is patent. The elevated hepatic arterial resistive indices are likely due to the cirrhosis. 2.Cholelithiasis without definitive signs of acute cholecystitis. Signed: Rosalio Guerrero MDReport Verified Date/Time: 06/09/2020 11:55:03 POCT-GLUCOSE [id number] 11:47:00 Test Item Value Reference Range Interpretation Comments POC-GLUCOSE METER 143 mg/dL 70-110 H : TESTED A T [facility] 6720 (BEAKER) (test code = [facility] Karen [facility], 1538) [address]: Truck Driver Teamster/Techni bradford ID = [id number] for QUEEN GANDHI POCT-GLUCOSE [id number] 08:17:00 Test Item Value Reference Range Interpretation Comments POC-GLUCOSE METER 104 mg/dL 70-110 : TESTED A T [facility] 6720 (BEAKER) (test code = [facility] Karen [facility], 1538) [address]: Truck Driver Teamster/Techni bradford ID = [id number] for NOEMÍ NELSON CALCIUM, [id number] 07:17:00 Test Item Value Reference Range Interpretation Comments CALCIUM IONIZED (BEAKER) (test 1.13 mmol/L 1.12-1.27 code = 698) PH, BLOOD (BEAKER) (test code = 7.31 1810) [id number] 06:34:00 Test Item Value Reference Range Interpretation Comments PHOSPHORUS (BEAKER) (test code = 2.7 mg/dL 2.3-4.7 604) Truck Driver Teamster ID - [id number] 06:34:00 Test Item Value Reference Range Interpretation Comments MAGNESIUM (BEAKER) (test code = 1.5 mg/dL 1.6-2.6 L 627) Truck Driver Teamster ID - EDASICOMPREHENSIVE METABOLIC [id number] 06:34:00 Test Item Value Reference Range Interpretation Comments TOTAL PROTEIN 6.1 gm/dL 6.0-8.3 (BEAKER) (test code = 770) ALBUMIN (BEAKER) 3.3 g/dL 3.5-5.0 L (test code = 1145) ALKALINE PHOSPHATASE 75 U/L 40-150 (BEAKER) (test code = 346) BILIRUBIN TOTAL 11.3 mg/dL 0.2-1.2 H (BEAKER) (test code = 377) SODIUM (BEAKER) (test 139 meq/L 136-145 code = 381) POTASSIUM (BEAKER) 4.2 meq/L 3.5-5.1 (test code = 379) CHLORIDE (BEAKER) 108 meq/L 98-107 H (test code = 382) CO2 (BEAKER) (test 21 meq/L 22-29 L code = 355) BLOOD UREA NITROGEN 24 mg/dL 7-21 H (BEAKER) (test code = 354) CREATININE (BEAKER) 1.03 mg/dL 0.57-1.25 (test code = 358) GLUCOSE RANDOM 126 mg/dL 70-105 H (BEAKER) (test code = 652) CALCIUM (BEAKER) 8.3 mg/dL 8.4-10.2 L (test code = 697) AST (SGOT) (BEAKER) 30 U/L 5-34 (test code = 353) ALT (SGPT) (BEAKER) 19 U/L 6-55 (test code = 347) EGFR (BEAKER) (test 72 mL/min/1.73 ESTIMA CHILANGO GFR IS code = 1092) sq m NOT ACCURATE CREATININE CLEARANCE IN PREDICTING GLOMERULAR FILTRATION RATE . ESTIMATED GFR I S NOT APPLICABLE FOR DIALYSIS PATIEN TS. Truck Driver Teamster ID - EDASISpecimen markedly ictericCBC W/PLT COUNT & AUTO [id number] 06:09:00 Test Item Value Reference Range Interpretation Comments WHITE BLOOD CELL COUNT (BEAKER) 4.3 K/ L 3.5-10.5 (test code = 775) RED BLOOD CELL COUNT (BEAKER) 3.74 M/ L 4.63-6.08 L (test code = 761) HEMOGLOBIN (BEAKER) (test code = 11.4 GM/DL 13.7-17.5 L 410) HEMATOCRIT (BEAKER) (test code = 35.3 % 40.1-51.0 L 411) MEAN CORPUSCULAR VOLUME (BEAKER) 94.4 fL 79.0-92.2 H (test code = 753) MEAN CORPUSCULAR HEMOGLOBIN 30.5 pg 25.7-32.2 (BEAKER) (test code = 751) MEAN CORPUSCULAR HEMOGLOBIN CONC 32.3 GM/DL 32.3-36.5 (BEAKER) (test code = 752) RED CELL DISTRIBUTION WIDTH 16.5 % 11.6-14.4 H (BEAKER) (test code = 412) PLATELET COUNT (BEAKER) (test code 82 K/CU MM 150-450 L = 756) MEAN PLATELET VOLUME (BEAKER) 10.2 fL 9.4-12.4 (test code = 754) NUCLEATED RED BLOOD CELLS (BEAKER) 0 /100 WBC 0-0 (test code = 413) NEUTROPHILS RELATIVE PERCENT 78 % (BEAKER) (test code = 429) LYMPHOCYTES RELATIVE PERCENT 9 % (BEAKER) (test code = 430) MONOCYTES RELATIVE PERCENT 9 % (BEAKER) (test code = 431) EOSINOPHILS RELATIVE PERCENT 3 % (BEAKER) (test code = 432) BASOPHILS RELATIVE PERCENT 1 % (BEAKER) (test code = 437) NEUTROPHILS ABSOLUTE COUNT 3.39 K/ L 1.78-5.38 (BEAKER) (test code = 670) LYMPHOCYTES ABSOLUTE COUNT 0.38 K/ L 1.32-3.57 L (BEAKER) (test code = 414) MONOCYTES ABSOLUTE COUNT (BEAKER) 0.37 K/ L 0.30-0.82 (test code = 415) EOSINOPHILS ABSOLUTE COUNT 0.14 K/ L 0.04-0.54 (BEAKER) (test code = 416) BASOPHILS ABSOLUTE COUNT (BEAKER) 0.03 K/ L 0.01-0.08 (test code = 417) IMMATURE GRANULOCYTES-RELATIVE 1 % 0-1 PERCENT (BEAKER) (test code = 2801) HEPATITIS C PCR, [id number] 22:28:00 Test Item Value Reference Range Interpretation Comments HCV RESULT COMPONENT HCV RNA not detected HCV RNA not detected (BEAKER) (test code = 2699) This test uses a Real-Time Polymerase Chain Reaction (RT-PCR) methodology and was performed using CHON Ampliprep/CHON TaqMan HCV test kit version 2.0 ([employer]).Reportable range for this assay is 15 - 100,000,000 IU per mL (1.18 - 8.00 Log IU/mL).HEPATITIS B PCR, QUANTITATIVE 2020-06-08 21:51:00 Test Item Value Reference Range Interpretation Comments HBV RESULT COMPONENT HBV DNA not detected HBV DNA not detected (BEAKER) (test code = 2705) This test uses a Real-Time Polymerase Chain Reaction (RT-PCR) methodology and was performed using CHON AmpliPrep/CHON TaqMan HBV Test, v2.0 ([employer]Reportable range for this assay is 20 - 170,000,000 IU per mL (1.30 - 8.23 Log IU/mL).POCT-GLUCOSE [id number] 21:04:00 Test Item Value Reference Range Interpretation Comments POC-GLUCOSE METER 128 mg/dL 70-110 H : TESTED A T [facility] 6720 (BEAKER) (test code = [facility], 1538) [address]: Truck Driver Teamster/Techni bradford ID = [id number] for NOEMÍ NELSON POCT-GLUCOSE [id number] 15:11:00 Test Item Value Reference Range Interpretation Comments POC-GLUCOSE METER 113 mg/dL 70-110 H : TESTED A T [facility] 6720 (BEAKER) (test code = [facility], 1538) [address]: Truck Driver Teamster/Techni bradford ID = [id number] for OLGA CHU COMPREHENSIVE METABOLIC [id number] 06:38:00 Test Item Value Reference Range Interpretation Comments TOTAL PROTEIN 5.9 gm/dL 6.0-8.3 L (BEAKER) (test code = 770) ALBUMIN (BEAKER) 3.3 g/dL 3.5-5.0 L (test code = 1145) ALKALINE PHOSPHATASE 76 U/L 40-150 (BEAKER) (test code = 346) BILIRUBIN TOTAL 13.6 mg/dL 0.2-1.2 H (BEAKER) (test code = 377) SODIUM (BEAKER) (test 140 meq/L 136-145 code = 381) POTASSIUM (BEAKER) 4.7 meq/L 3.5-5.1 (test code = 379) CHLORIDE (BEAKER) 111 meq/L 98-107 H (test code = 382) CO2 (BEAKER) (test 23 meq/L 22-29 code = 355) BLOOD UREA NITROGEN 40 mg/dL 7-21 H (BEAKER) (test code = 354) CREATININE (BEAKER) 1.60 mg/dL 0.57-1.25 H (test code = 358) GLUCOSE RANDOM 122 mg/dL 70-105 H (BEAKER) (test code = 652) CALCIUM (BEAKER) 7.9 mg/dL 8.4-10.2 L (test code = 697) AST (SGOT) (BEAKER) 28 U/L 5-34 (test code = 353) ALT (SGPT) (BEAKER) 20 U/L 6-55 (test code = 347) EGFR (BEAKER) (test 43 mL/min/1.73 ESTIMA CHILANGO GFR IS code = 1092) sq m NOT ACCURATE CREATININE CLEARANCE IN PREDICTING GLOMERULAR FILTRATION RATE . ESTIMATED GFR I S NOT APPLICABLE FOR DIALYSIS PATIEN TS. Truck Driver Teamster ID - EDASISpecimen markedly [id number] 06:37:00 Test Item Value Reference Range Interpretation Comments PHOSPHORUS (BEAKER) (test code = 2.2 mg/dL 2.3-4.7 L 604) Truck Driver Teamster ID - [id number] 06:37:00 Test Item Value Reference Range Interpretation Comments MAGNESIUM (BEAKER) (test code = 1.6 mg/dL 1.6-2.6 627) Truck Driver Teamster ID - EDASIPOCT-GLUCOSE [id number] 06:34:00 Test Item Value Reference Range Interpretation Comments POC-GLUCOSE METER 110 mg/dL 70-110 : TESTED A T [facility] 6720 (BEAKER) (test code = HANNAH Jones [facility], 1538) [address]: Truck Driver Teamster/Techni bradford ID = [id number] for NOEMÍ NELSON [id number] 06:06:00 Test Item Value Reference Range Interpretation Comments AMMONIA (BEAKER) (test code = 348) 76 mol/L 18-72 H Truck Driver Teamster ID - DERECKAYA LCBC W/PLT COUNT & AUTO [id number] 05:54:00 Test Item Value Reference Range Interpretation Comments WHITE BLOOD CELL COUNT (BEAKER) 3.7 K/ L 3.5-10.5 (test code = 775) RED BLOOD CELL COUNT (BEAKER) 3.84 M/ L 4.63-6.08 L (test code = 761) HEMOGLOBIN (BEAKER) (test code = 11.4 GM/DL 13.7-17.5 L 410) HEMATOCRIT (BEAKER) (test code = 35.7 % 40.1-51.0 L 411) MEAN CORPUSCULAR VOLUME (BEAKER) 93.0 fL 79.0-92.2 H (test code = 753) MEAN CORPUSCULAR HEMOGLOBIN 29.7 pg 25.7-32.2 (BEAKER) (test code = 751) MEAN CORPUSCULAR HEMOGLOBIN CONC 31.9 GM/DL 32.3-36.5 L (BEAKER) (test code = 752) RED CELL DISTRIBUTION WIDTH 16.3 % 11.6-14.4 H (BEAKER) (test code = 412) PLATELET COUNT (BEAKER) (test code 75 K/CU MM 150-450 L = 756) MEAN PLATELET VOLUME (BEAKER) 10.1 fL 9.4-12.4 (test code = 754) NUCLEATED RED BLOOD CELLS (BEAKER) 0 /100 WBC 0-0 (test code = 413) NEUTROPHILS RELATIVE PERCENT 78 % (BEAKER) (test code = 429) LYMPHOCYTES RELATIVE PERCENT 9 % (BEAKER) (test code = 430) MONOCYTES RELATIVE PERCENT 8 % (BEAKER) (test code = 431) EOSINOPHILS RELATIVE PERCENT 4 % (BEAKER) (test code = 432) BASOPHILS RELATIVE PERCENT 1 % (BEAKER) (test code = 437) NEUTROPHILS ABSOLUTE COUNT 2.90 K/ L 1.78-5.38 (BEAKER) (test code = 670) LYMPHOCYTES ABSOLUTE COUNT 0.32 K/ L 1.32-3.57 L (BEAKER) (test code = 414) MONOCYTES ABSOLUTE COUNT (BEAKER) 0.29 K/ L 0.30-0.82 L (test code = 415) EOSINOPHILS ABSOLUTE COUNT 0.15 K/ L 0.04-0.54 (BEAKER) (test code = 416) BASOPHILS ABSOLUTE COUNT (BEAKER) 0.02 K/ L 0.01-0.08 (test code = 417) IMMATURE GRANULOCYTES-RELATIVE 1 % 0-1 PERCENT (BEAKER) (test code = 2801) CALCIUM, [id number] 05:47:00 Test Item Value Reference Range Interpretation Comments CALCIUM IONIZED (BEAKER) (test 1.11 mmol/L 1.12-1.27 L code = 698) PH, BLOOD (BEAKER) (test code = 7.31 1810) BLOOD CULTURE IDENTIFICATION [id number] 23:11:00 Test Item Value Reference Interpretation Comments Range LISTERIA MONOCYTOGENES Not detected Not detected (test code = 3469611) STAPHYLOCOCCUS (test Detected Not detected A Coagula se negative code = 1321026) Staph specie s (CoNS)- methici llin susceptibleFirs t-anjali e therapy: Cefa zolin or Oxacillin (Oxacillin pref erred if EXCELLENCE MANAGER involvem ent) MecA NOT DETECTEDPossibl e contamination. The likelihood of pathogenicity i s increased if th e organism is obs erved in multiple blo od cultures obtain ed from separate venipunctures.R efere nce Range: Not Detected STAPHYLOCOCCUS AUREUS Not detected Not detected (test code = 2867363) STREPTOCOCCUS (test Not detected Not detected code = 9777277) STREPTOCOCCUS Not detected Not detected AGALACTIAE (GROUP B) (test code = 3035565) STREPTOCOCCUS Not detected Not detected PNEUMONIAE (test code = 4348968) STREPTOCOCCUS PYOGENES Not detected Not detected (GROUP A) (test code = 3919021) ACINETOBACTER BAUMANNII Not detected Not detected (test code = 0704231) HAEMOPHILUS INFLUENZAE Not detected Not detected (test code = 7913384) NEISSERIA MENINGITIDIS Not detected Not detected (test code = 9076450) ENTEROBACTERIACEAE Not detected Not detected (test code = 9287573) ENTEROBACTER CLOACOE Not detected Not detected COMPLEX (test code = 2459238) KLEBSIELLA OXYTOCA Not detected Not detected (test code = 8597526) KLEBSIELLA PNEUMONIAE Not detected Not detected (test code = 1650) PROTEUS (test code = Not detected Not detected 5680892) SERRATIA MARCESCENS Not detected Not detected (test code = 0398197) OCTAVIO ALBICANS (test Not detected Not detected code = 8146305) OCTAVIO GLABRATA (test Not detected Not detected code = 9409714) OCTAVIO KRUSEI (test Not detected Not detected code = 7331995) OCTAVIO PARAPSILOSIS Not detected Not detected (test code = 3601841) OCTAVIO TROPICALIS Not detected Not detected (test code = 5331858) ESCHERICHIA COLI (test Not detected Not detected code = 1943479) METHICILLIN-RESISTANCE Not detected Not detected GENE (test code = 3625032) VANCOMYCIN-RESISTANCE GENE (test code = 2892604) CARBAPENEM-RESISTANCE GENE (test code = 8350490) ENTEROCOCCUS-BEAKER Not detected Not detected (test code = 3876760) PSEUDOMONAS Not detected Not detected AERUGINOSA-BEAKER (test code = 0510613) Other bacteria and resistance markers not targeted by this PCR panel cannot be excluded; therefore clinical correlation and follow up of serology, culture results, and other molecular studies is required. The results are not intended to be used as the sole means for clinical diagnosis or patient management decisions. This sample was tested at the [facility] using the [employer] Blood Culture ID Panel. It is FDA cleared and has been verified and approved by the [facility] for clinical use. This laboratory is CLIA-certified and [employer] ofAmerican [employer] (CAP)-accredited to perform high complexity testing.VANCOMYCIN LEVEL, [id number] 21:25:00 Test Item Value Reference Range Interpretation Comments VANCOMYCIN RANDOM (BEAKER) (test 4.5 ug/mL code = 523) Reference Range: No NormalsOperator ID - ELAINE CPOCT-GLUCOSE [id number] 20:46:00 Test Item Value Reference Range Interpretation Comments POC-GLUCOSE METER 133 mg/dL 70-110 H : TESTED A T [facility] 6720 ([employer]) (test code = [facility] Tink [facility], 1538) 326[address]: Truck Driver Teamster/Techni bradford ID = [id number] for NOEMÍ NELSON POCT-GLUCOSE [id number] 16:36:00 Test Item Value Reference Range Interpretation Comments POC-GLUCOSE METER 211 mg/dL 70-110 H : TESTED A T [facility] 6720 ([employer]) (test code = [employer] [place], 1538) 97844: Truck Driver Teamster/Techni bradford ID = [id number] for ELVIN SOTO PET/CT, CARDIAC PERF REST AND [id number] 12:30:00Reason for exam:->Pre liver transplantFINAL REPORT PROCEDURE: MYOCARDIAL PERFUSION PET/CT IMAGING (Rest/Stress)CPT CODE: 87163 INDICATION: Preoperative cardiac risk stratification liver transplantation CARDIOVASCULARPROFILE:CAD History: NoneSymptoms: NoneRisk Factors: Diabetes, hypertension, dyslipidemiaBMI: 36.5Medications: Labetalol, Synthroid STRESS PROTOCOL:Pharmacologic stress was achieved with a 10-second intravenous infusion of regadenoson 0.4 mg. The radiopharmaceutical was administered 30 seconds after the start of the regadenoson infusion. IMAGING PROTOCOL:Limited low-dose CT imaging was performed for attenuation correction. 34.5 mCi of Rb-82 chloride was injected intravenously at rest, and gated PET images were obtained. Then, 36.3 mCi of Rb-82 chloride was injected intravenously at peak stress, andgated PET images were obtained. Image quality is good. REST FINDINGS:HR: 81/minBP: 112/59 mmHgPrelim. EKG: Normal sinus rhythm.Perfusion: Normal.Wall Motion: Normal (LVEF 65%).LV Volume: Normal.RV Volume: Normal. STRESS FINDINGS:HR: 86/min (56% of MPHR)BP: 103/57 mmHgPrelim. EKG: No ischemic changes.Symptoms: None (treatment not required).Perfusion: Normal.Wall Motion: Normal (LVEF 70%).LV Volume: Not significantly changed from rest. IMPRESSION:1. Normal study.2. Normal myocardial perfusion. 3. Normal resting LVEF, which does not deteriorate with pharmacologic stress.4. Normal extracardiac tracer di stribution.5. There is no prior study for comparison. Signed: Todd Aquinoeport Verified Date/Time: 06/07/2020 12:30:47 Reading Location: [address] Reading Room POCT-GLUCOSE [id number] 12:27:00 Test Item Value Reference Range Interpretation Comments POC-GLUCOSE METER 141 mg/dL 70-110 H : TESTED A T [facility] 6720 (BEAKER) (test code = [facility] Tink [facility], 1538) 82352: Truck Driver Teamster/Techni bradford ID = [id number] for ELVIN SOTO POCT-GLUCOSE [id number] 08:50:00 Test Item Value Reference Range Interpretation Comments POC-GLUCOSE METER 107 mg/dL 70-110 : TESTED A T [facility] 6720 (BEAKER) (test code = [facility] Tink [facility], 1538) 33309: Truck Driver Teamster/Techni bradford ID = [id number] for ELVIN SOTO COMPREHENSIVE METABOLIC [id number] 05:16:00 Test Item Value Reference Range Interpretation Comments TOTAL PROTEIN 5.2 gm/dL 6.0-8.3 L (BEAKER) (test code = 770) ALBUMIN (BEAKER) 3.1 g/dL 3.5-5.0 L (test code = 1145) ALKALINE PHOSPHATASE 66 U/L 40-150 (BEAKER) (test code = 346) BILIRUBIN TOTAL 15.9 mg/dL 0.2-1.2 H (BEAKER) (test code = 377) SODIUM (BEAKER) (test 137 meq/L 136-145 code = 381) POTASSIUM (BEAKER) 3.4 meq/L 3.5-5.1 L (test code = 379) CHLORIDE (BEAKER) 100 meq/L 98-107 (test code = 382) CO2 (BEAKER) (test 26 meq/L 22-29 code = 355) BLOOD UREA NITROGEN 42 mg/dL 7-21 H (BEAKER) (test code = 354) CREATININE (BEAKER) 2.52 mg/dL 0.57-1.25 H (test code = 358) GLUCOSE RANDOM 116 mg/dL 70-105 H (BEAKER) (test code = 652) CALCIUM (BEAKER) 7.0 mg/dL 8.4-10.2 L (test code = 697) AST (SGOT) (BEAKER) 20 U/L 5-34 (test code = 353) ALT (SGPT) (BEAKER) 16 U/L 6-55 (test code = 347) EGFR (BEAKER) (test 26 mL/min/1.73 ESTIMA CHILANGO GFR IS code = 1092) sq m NOT ACCURATE CREATININE CLEARANCE IN PREDICTING GLOMERULAR FILTRATION RATE . ESTIMATED GFR I S NOT APPLICABLE FOR DIALYSIS PATIEN TS. Truck Driver Teamster ID - KJ LSpecimen markedly [id number] 04:59:00 Test Item Value Reference Range Interpretation Comments PHOSPHORUS (BEAKER) (test code = 3.2 mg/dL 2.3-4.7 604) Truck Driver Teamster ID - KJ [id number] 04:59:00 Test Item Value Reference Range Interpretation Comments MAGNESIUM (BEAKER) (test code = 1.5 mg/dL 1.6-2.6 L 627) Truck Driver Teamster ID - KJ LLACTIC ACID, [id number] 04:22:00 Test Item Value Reference Range Interpretation Comments LACTATE BLOOD VENOUS (2) (BEAKER) 0.78 mmol/L 0.50-2.20 (test code = 2872) Truck Driver Teamster ID - KJ LSpecimen markedly ictericCBC W/PLT COUNT & AUTO [id number] 04:21:00 Test Item Value Reference Range Interpretation Comments WHITE BLOOD CELL COUNT (BEAKER) 2.9 K/ L 3.5-10.5 L (test code = 775) RED BLOOD CELL COUNT (BEAKER) 3.36 M/ L 4.63-6.08 L (test code = 761) HEMOGLOBIN (BEAKER) (test code = 10.1 GM/DL 13.7-17.5 L 410) HEMATOCRIT (BEAKER) (test code = 30.7 % 40.1-51.0 L 411) MEAN CORPUSCULAR VOLUME (BEAKER) 91.4 fL 79.0-92.2 (test code = 753) MEAN CORPUSCULAR HEMOGLOBIN 30.1 pg 25.7-32.2 (BEAKER) (test code = 751) MEAN CORPUSCULAR HEMOGLOBIN CONC 32.9 GM/DL 32.3-36.5 (BEAKER) (test code = 752) RED CELL DISTRIBUTION WIDTH 15.8 % 11.6-14.4 H (BEAKER) (test code = 412) PLATELET COUNT (BEAKER) (test code 51 K/CU MM 150-450 L = 756) MEAN PLATELET VOLUME (BEAKER) 10.7 fL 9.4-12.4 (test code = 754) NUCLEATED RED BLOOD CELLS (BEAKER) 0 /100 WBC 0-0 (test code = 413) NEUTROPHILS RELATIVE PERCENT 76 % (BEAKER) (test code = 429) LYMPHOCYTES RELATIVE PERCENT 9 % (BEAKER) (test code = 430) MONOCYTES RELATIVE PERCENT 9 % (BEAKER) (test code = 431) EOSINOPHILS RELATIVE PERCENT 4 % (BEAKER) (test code = 432) BASOPHILS RELATIVE PERCENT 0 % (BEAKER) (test code = 437) NEUTROPHILS ABSOLUTE COUNT 2.19 K/ L 1.78-5.38 (BEAKER) (test code = 670) LYMPHOCYTES ABSOLUTE COUNT 0.26 K/ L 1.32-3.57 L (BEAKER) (test code = 414) MONOCYTES ABSOLUTE COUNT (BEAKER) 0.27 K/ L 0.30-0.82 L (test code = 415) EOSINOPHILS ABSOLUTE COUNT 0.10 K/ L 0.04-0.54 (BEAKER) (test code = 416) BASOPHILS ABSOLUTE COUNT (BEAKER) 0.01 K/ L 0.01-0.08 (test code = 417) IMMATURE GRANULOCYTES-RELATIVE 1 % 0-1 PERCENT (BEAKER) (test code = 2809) POCT-GLUCOSE [id number] 20:37:00 Test Item Value Reference Range Interpretation Comments POC-GLUCOSE METER 163 mg/dL 70-110 H : TESTED A T [facility] 6720 (BEAKER) (test code = [facility], 1538) 39[address]: Truck Driver Teamster/Techni bradford ID = [id number] for Mo min, Isabell EOSINOPHIL SMEAR, [id number] 20:31:00 Test Item Value Reference Range Interpretation Comments EOSINOPHIL SMEAR, URINE (BEAKER) No EOS seen No EOS seen (test code = 1851) Very icteric urineSODIUM, RANDOM [id number] 20:06:00 Test Item Value Reference Range Interpretation Comments SODIUM URINE (BEAKER) (test code = 21 meq/L 243) Reference Range: No NormalsOperator ID - DBCREATININE, RANDOM [id number] 20:06:00 Test Item Value Reference Range Interpretation Comments CREATININE URINE (BEAKER) (test 204.7 mg/dL code = 375) Reference Range: No NormalsOperator ID - DBPROTEIN, RANDOM [id number] 19:57:00 Test Item Value Reference Range Interpretation Comments PROTEIN, URINE (BEAKER) (test code = 43 mg/dL 0-14 H 1569) Truck Driver Teamster ID - DBURINALYSIS W/ [id number] 19:54:00 Test Item Value Reference Range Interpretation Comments COLOR (BEAKER) (test code = 470) Brown CLARITY (BEAKER) (test code = 469) Cloudy SPECIFIC GRAVITY UA (BEAKER) (test 1.015 1.001-1.035 code = 468) PH UA (BEAKER) (test code = 467) 5.0 5.0-8.0 PROTEIN UA (BEAKER) (test code = 20 mg/dL Negative A 464) GLUCOSE UA (BEAKER) (test code = 30 mg/dL Negative A 365) KETONES UA (BEAKER) (test code = Negative Negative 371) BILIRUBIN UA (BEAKER) (test code = Positive Negative A 462) BLOOD UA (BEAKER) (test code = 461) Moderate Negative A NITRITE UA (BEAKER) (test code = Negative Negative 465) LEUKOCYTE ESTERASE UA (BEAKER) Trace Negative A (test code = 466) UROBILINOGEN UA (BEAKER) (test code 2.0 mg/dL 0.2-1.0 H = 463) RBC UA (BEAKER) (test code = 519) 0 /HPF WBC UA (BEAKER) (test code = 520) 35 /HPF MUCUS (BEAKER) (test code = 1574) Rare SQUAMOUS EPITHELIAL (BEAKER) (test < /HPF code = 516) HYALINE CASTS (BEAKER) (test code = 31 /LPF 514) GRANULAR CASTS (BEAKER) (test code 10 /LPF = 515) YEAST (BEAKER) (test code = 1585) Few SOURCE(BEAKER) (test code = 2795) Truck Driver Teamster ID - [auto]Truck Driver Teamster ID - techOperator ID - techOSMOLALITY, URINE 2020-06-06 19:48:00 Test Item Value Reference Range Interpretation Comments OSMOLALITY URINE (BEAKER) (test 258 mOsm/kg 50-1,200 mOsm/kg code = 614) HEPATITIS B SURFACE [id number] 18:31:00 Test Item Value Reference Range Interpretation Comments HEPATITIS B SURFACE ANTIBODY 556.9 mIU/mL <8.0 H (BEAKER) (test code = 647) Truck Driver Teamster ID - DBPOCT-GLUCOSE [id number] 16:51:00 Test Item Value Reference Range Interpretation Comments POC-GLUCOSE METER 158 mg/dL 70-110 H : [facility] ([facility]ER[facility] ([place], [address]: code = 1538) Truck Driver Teamster/Techni bradford ID = [id number] for TRESA CARMEN RUIZ IN [id number] 16:49:00 Test Item Value Reference Range Interpretation Comments PROCALCITONIN (BEAKER) (test code 1.36 ng/mL <0.05 H = 3036) SEPSIS RISK (ng/mL)Low: 0.05-0.50Intermediate: 0.51-2.00High: >=2.01COMPREHENSIVE METABOLIC [id number] 16:22:00 Test Item Value Reference Range Interpretation Comments TOTAL PROTEIN 5.8 gm/dL 6.0-8.3 L (BEAKER) (test code = 770) ALBUMIN (BEAKER) 3.1 g/dL 3.5-5.0 L (test code = 1145) ALKALINE PHOSPHATASE 93 U/L 40-150 (BEAKER) (test code = 346) BILIRUBIN TOTAL 20.0 mg/dL 0.2-1.2 H (BEAKER) (test code = 377) SODIUM (BEAKER) (test 133 meq/L 136-145 L code = 381) POTASSIUM (BEAKER) 3.9 meq/L 3.5-5.1 (test code = 379) CHLORIDE (BEAKER) 98 meq/L 98-107 (test code = 382) CO2 (BEAKER) (test 24 meq/L 22-29 code = 355) BLOOD UREA NITROGEN 42 mg/dL 7-21 H (BEAKER) (test code = 354) CREATININE (BEAKER) 3.49 mg/dL 0.57-1.25 H (test code = 358) GLUCOSE RANDOM 180 mg/dL 70-105 H (BEAKER) (test code = 652) CALCIUM (BEAKER) 8.1 mg/dL 8.4-10.2 L (test code = 697) AST (SGOT) (BEAKER) 28 U/L 5-34 (test code = 353) ALT (SGPT) (BEAKER) 24 U/L 6-55 (test code = 347) EGFR (BEAKER) (test 18 mL/min/1.73 ESTIMA CHILANGO GFR IS code = 1092) sq m NOT ACCURATE CREATININE CLEARANCE IN PREDICTING GLOMERULAR FILTRATION RATE . ESTIMATED GFR I S NOT APPLICABLE FOR DIALYSIS PATIEN TS. Truck Driver Teamster ID - AAHAMIDSpecimen markedly ictericBILIRUBIN, [id number] 16:22:00 Test Item Value Reference Range Interpretation Comments BILIRUBIN DIRECT (BEAKER) (test 17.7 mg/dL 0.1-0.5 H code = 706) Truck Driver Teamster ID - AAHAMIDB-TYPE NATRIURETIC FACTOR (BNP)2020-06-06 16:13:00 Test Item Value Reference Range Interpretation Comments B-TYPE NATRIURETIC PEPTIDE (BEAKER) 11 pg/mL 0-100 (test code = 700) Truck Driver Teamster ID - AAHAMIDURIC [id number] 16:07:00 Test Item Value Reference Range Interpretation Comments URIC ACID (BEAKER) (test code = 6.7 mg/dL 2.6-7.2 773) Truck Driver Teamster ID - AAHAMIDSpecimen markedly ictericBASIC METABOLIC [id number] 15:59:00 Test Item Value Reference Range Interpretation Comments SODIUM (BEAKER) 131 meq/L 136-145 L (test code = 381) POTASSIUM (BEAKER) 3.9 meq/L 3.5-5.1 (test code = 379) CHLORIDE (BEAKER) 98 meq/L 98-107 (test code = 382) CO2 (BEAKER) (test 24 meq/L 22-29 code = 355) BLOOD UREA NITROGEN 42 mg/dL 7-21 H (BEAKER) (test code = 354) CREATININE (BEAKER) 3.52 mg/dL 0.57-1.25 H (test code = 358) GLUCOSE RANDOM 185 mg/dL 70-105 H (BEAKER) (test code = 652) CALCIUM (BEAKER) 8.3 mg/dL 8.4-10.2 L (test code = 697) EGFR (BEAKER) (test 17 mL/min/1.73 ESTIMA CHILANGO GFR IS code = 1092) sq m NOT ACCURATE CREATININE CLEARANCE IN PREDICTING GLOMERULAR FILTRATION RATE . ESTIMATED GFR I S NOT APPLICABLE FOR DIALYSIS PATIEN TS. Truck Driver Teamster ID - AAHAMIDSpecimen markedly [id number] 15:54:00 Test Item Value Reference Range Interpretation Comments MAGNESIUM (BEAKER) (test code = 1.7 mg/dL 1.6-2.6 627) Truck Driver Teamster ID - AAJONIKUN, CHEST, 1 VIEW, NON [id number] 15:50:00Reason for exam:->post picc line insertionShould this be performed at the bedside?->YesFINAL REPORT History: Status post PICC line placement Comparison: No comparison chest imaging Findings: A right PICC line is present, with its tip in the SVC region. There is mild vascular congestion. There is linear likely scar lateral to left heart border. No pleural effusions or pneumothorax. The heart shadow is normal in size. The thoracic aorta is mildly tortuous. Degenerative changes are present in the spine. Signed: Kirk Mtichelleport Verified Date/Time: 06/06/202015:50:09 Reading Location: [address] Reading Room POCT-GLUCOSE [id number] 12:20:00 Test Item Value Reference Range Interpretation Comments POC-GLUCOSE METER 163 mg/dL 70-110 H : TESTED A T [facility] 6720 (BEAKER) (test code = [facility], 1538) 71715: Truck Driver Teamster/Techni bradford ID = [id number] for BARTOLO BURTON POCT-GLUCOSE [id number] 10:14:00 Test Item Value Reference Range Interpretation Comments POC-GLUCOSE METER 110 mg/dL 70-110 : TESTED A T [facility] 6720 (BEAKER) (test code = [facility] Karen [facility], 1538) 46[address]: Truck Driver Teamster/Techni bradford ID = [id number] for MELVIN PARRA FL, [id number] 09:27:00Reason for exam:->ERCPFluoroscopic unit utilized for a procedure performed in the OR. No interpretation was requested. Refer to the operative report for findings. Refer to PACS for patient radiation dose information.POCT-GLUCOSE [id number] 08:38:00 Test Item Value Reference Range Interpretation Comments POC-GLUCOSE METER 128 mg/dL 70-110 H : TESTED A T [facility] 6720 (BEAKER) (test code [facility], = 1538) 10017: Truck Driver Teamster/Techni bradford ID = [id number] for RAMÓN VEGA COMPREHENSIVE METABOLIC [id number] 04:26:00 Test Item Value Reference Range Interpretation Comments TOTAL PROTEIN 5.9 gm/dL 6.0-8.3 L (BEAKER) (test code = 770) ALBUMIN (BEAKER) 2.8 g/dL 3.5-5.0 L (test code = 1145) ALKALINE PHOSPHATASE 110 U/L 40-150 (BEAKER) (test code = 346) BILIRUBIN TOTAL 22.1 mg/dL 0.2-1.2 H (BEAKER) (test code = 377) SODIUM (BEAKER) (test 129 meq/L 136-145 L code = 381) POTASSIUM (BEAKER) 4.0 meq/L 3.5-5.1 (test code = 379) CHLORIDE (BEAKER) 96 meq/L 98-107 L (test code = 382) CO2 (BEAKER) (test 22 meq/L 22-29 code = 355) BLOOD UREA NITROGEN 32 mg/dL 7-21 H (BEAKER) (test code = 354) CREATININE (BEAKER) 3.02 mg/dL 0.57-1.25 H (test code = 358) GLUCOSE RANDOM 106 mg/dL 70-105 H (BEAKER) (test code = 652) CALCIUM (BEAKER) 8.2 mg/dL 8.4-10.2 L (test code = 697) AST (SGOT) (BEAKER) 31 U/L 5-34 (test code = 353) ALT (SGPT) (BEAKER) 25 U/L 6-55 (test code = 347) EGFR (BEAKER) (test 21 mL/min/1.73 ESTIMA CHILANGO GFR IS code = 1092) sq m NOT ACCURATE CREATININE CLEARANCE IN PREDICTING GLOMERULAR FILTRATION RATE . ESTIMATED GFR I S NOT APPLICABLE FOR DIALYSIS PATIEN TS. Truck Driver Teamster ZI UNDERWOOD LSpecimen markedly ictericIMMUNOGLOBULIN G (IGG)2020-06-06 02:59:00 Test Item Value Reference Range Interpretation Comments IMMUNOGLOBULIN G (IGG) (BEAKER) 1154 mg/dL 540-1,822 (test code = 427) Truck Driver Teamster ID Boo UNDERWOOD [id number] 02:55:00 Test Item Value Reference Range Interpretation Comments PHOSPHORUS (BEAKER) (test code = 2.7 mg/dL 2.3-4.7 604) Truck Driver Teamster ID Boo UNDERWOOD LCBC W/PLT COUNT & AUTO [id number] 02:30:00 Test Item Value Reference Range Interpretation Comments WHITE BLOOD CELL COUNT (BEAKER) 6.4 K/ L 3.5-10.5 (test code = 775) RED BLOOD CELL COUNT (BEAKER) 4.21 M/ L 4.63-6.08 L (test code = 761) HEMOGLOBIN (BEAKER) (test code = 12.6 GM/DL 13.7-17.5 L 410) HEMATOCRIT (BEAKER) (test code = 38.0 % 40.1-51.0 L 411) MEAN CORPUSCULAR VOLUME (BEAKER) 90.3 fL 79.0-92.2 (test code = 753) MEAN CORPUSCULAR HEMOGLOBIN 29.9 pg 25.7-32.2 (BEAKER) (test code = 751) MEAN CORPUSCULAR HEMOGLOBIN CONC 33.2 GM/DL 32.3-36.5 (BEAKER) (test code = 752) RED CELL DISTRIBUTION WIDTH 16.0 % 11.6-14.4 H (BEAKER) (test code = 412) PLATELET COUNT (BEAKER) (test code 71 K/CU MM 150-450 L = 756) MEAN PLATELET VOLUME (BEAKER) 10.1 fL 9.4-12.4 (test code = 754) NUCLEATED RED BLOOD CELLS (BEAKER) 0 /100 WBC 0-0 (test code = 413) NEUTROPHILS RELATIVE PERCENT 83 % (BEAKER) (test code = 429) LYMPHOCYTES RELATIVE PERCENT 6 % (BEAKER) (test code = 430) MONOCYTES RELATIVE PERCENT 7 % (BEAKER) (test code = 431) EOSINOPHILS RELATIVE PERCENT 2 % (BEAKER) (test code = 432) BASOPHILS RELATIVE PERCENT 0 % (BEAKER) (test code = 437) NEUTROPHILS ABSOLUTE COUNT 5.36 K/ L 1.78-5.38 (BEAKER) (test code = 670) LYMPHOCYTES ABSOLUTE COUNT 0.38 K/ L 1.32-3.57 L (BEAKER) (test code = 414) MONOCYTES ABSOLUTE COUNT (BEAKER) 0.47 K/ L 0.30-0.82 (test code = 415) EOSINOPHILS ABSOLUTE COUNT 0.10 K/ L 0.04-0.54 (BEAKER) (test code = 416) BASOPHILS ABSOLUTE COUNT (BEAKER) 0.02 K/ L 0.01-0.08 (test code = 417) IMMATURE GRANULOCYTES-RELATIVE 2 % 0-1 H PERCENT (BEAKER) (test code = 2801) POCT-GLUCOSE [id number] 23:50:00 Test Item Value Reference Range Interpretation Comments POC-GLUCOSE METER 91 mg/dL 70-110 : TESTED A T [facility] 6720 (BEAKER) (test code = [place], 1538) [address]: Truck Driver Teamster/Techni rbadford ID = [id number] for MELINDA HUGHES URINALYSIS W/ REFLEX URINE [id number] 23:14:00 Test Item Value Reference Range Interpretation Comments COLOR (BEAKER) (test code = 470) Brown CLARITY (BEAKER) (test code = 469) Hazy SPECIFIC GRAVITY UA (BEAKER) (test 1.013 1.001-1.035 code = 468) PH UA (BEAKER) (test code = 467) 5.0 5.0-8.0 PROTEIN UA (BEAKER) (test code = Negative Negative 464) GLUCOSE UA (BEAKER) (test code = Negative Negative 365) KETONES UA (BEAKER) (test code = Negative Negative 371) BILIRUBIN UA (BEAKER) (test code = Positive Negative A 462) BLOOD UA (BEAKER) (test code = 461) Moderate Negative A NITRITE UA (BEAKER) (test code = Negative Negative 465) LEUKOCYTE ESTERASE UA (BEAKER) Negative Negative (test code = 466) UROBILINOGEN UA (BEAKER) (test code 2.0 mg/dL 0.2-1.0 H = 463) RBC UA (BEAKER) (test code = 519) 5 /HPF WBC UA (BEAKER) (test code = 520) 0 /HPF MUCUS (BEAKER) (test code = 1574) Few SQUAMOUS EPITHELIAL (BEAKER) (test 1 /HPF code = 516) AMORPHOUS CRYSTALS (BEAKER) (test Rare code = 1584) SOURCE(BEAKER) (test code = 2795) Truck Driver Teamster ID - [auto]Truck Driver Teamster ID - techGAMMA GLUTAMYL TRANSFERASE (GGT)2020-06-05 19:26:00 Test Item Value Reference Range Interpretation Comments GAMMA GLUTAMYL 166 U/L 9-64 H Specimen mode rately TRANSFERASE (BEAKER) hemolyz ed (test code = 364) Truck Driver Teamster ID - DBSpecimen markedly ictericSALICYLATE [id number] 18:25:00 Test Item Value Reference Range Interpretation Comments SALICYLATE LEVEL (BEAKER) < mg/dL 15.0-30.0 L (test code = 764) SCAN RESULT (test code = See Scanned Report [id number]) Therapeutic Range: 15.0-30.0 mg/dLToxic: >30.0 mg/dL Lethal: >70.0 mg/dLPOCT-GLUCOSE [id number] 18:04:00 Test Item Value Reference Range Interpretation Comments POC-GLUCOSE METER 157 mg/dL 70-110 H : Notified RN/MD: (ARTURAKER) (test code = TESTED AT [facility] 7972 7373) [facility], [address]: Truck Driver Teamster/Techni bradford ID = [id number] for Mary Grewal [id number] 16:26:00 Test Item Value Reference Range Interpretation Comments FERRITIN (BEAKER) (test code = 464.95 ng/mL 5.00-275.00 H 361) Truck Driver Teamster ID - ELAINE CHEPATITIS B CORE ANTIBODY, [id number] 14:40:00 Test Item Value Reference Range Interpretation Comments HEPATITIS B CORE TOTAL ANTIBODY Reactive Nonreactive A (BEAKER) (test code = 497) Truck Driver Teamster ID - ELAINE QFHKTC-0-[id number] 14:18:00 Test Item Value Reference Range Interpretation Comments ALPHA-1 ANTITRYPSIN 288.70 mg/dL 90.00-200.00 H Specimen moderately (BEAKER) (test code = hemoly zed 502) Truck Driver Teamster ID - ELAINE CHEPATITIS B SURFACE [id number] 14:17:00 Test Item Value Reference Range Interpretation Comments HEPATITIS B SURFACE ANTIGEN (2) Nonreactive Nonreactive (BEAKER) (test code = 2585) Specimen is considered negative for HBsAg.ALPHA FETOPROTEIN (AFP), TUMOR MARKER 2020-06-05 14:17:00 Test Item Value Reference Range Interpretation Comments ALPHA-FETOPROTEIN (BEAKER) (test 2.3 ng/mL <10.0 code = 1094) Truck Driver Teamster ID - ELAINE CHEPATITIS A ANTIBODY, [id number] 14:17:00 Test Item Value Reference Range Interpretation Comments HEPATITIS A IGG ANTIBODY (BEAKER) Nonreactive Nonreactive (test code = 2797) Truck Driver Teamster ID - ELAINE CIRON, TIBC, % SAT. (WITHOUT FERRITIN)2020-06-05 13:56:00 Test Item Value Reference Range Interpretation Comments IRON (BEAKER) (test code = 547) 31.0 ug/dL 40.0-160.0 L TOTAL IRON BINDING CAPACITY 268 ug/dL 250-450 (BEAKER) (test code = 769) IRON % SATURATION (2) (BEAKER) 12 % 20-55 L (test code = 2590) Truck Driver Teamster ID - ELAINE CSARS-COV2/RT-PCR ([facility])2020-06-05 13:37:00 Test Item Value Reference Range Interpretation Comments SARS-COV2/RT-PCR (test Negative Not Detected, Negative, code = 4790980) See external report for linked test SARS-COV-2 PERFORMING LAB [facility] (test code = 4918763) Negative result for this test determines that SARS-CoV-2 RNA was not present in the specimen above the Limit of Detection (LOD). However, Negative results do not preclude SARS-CoV-2 infection and should not be used as the sole basis for treatment or patient management decisions. Negative results mustbe combined with clinical observations, patient history, and epidemiological information. A false negative result may occur if a specimen is improperly collected, transported or handled. A false negative result should be considered if patient's recent exposures or clinical presentation indicate that COVID-19 (SARS-CoV-2) is likely and diagnostic tests for other causes of illness are negative. Re-testing should be considered in cases of suspected false negatives.The limit of detection for this assay is 800 copies/mL.This SARS CoV-2 test is a real-time RT-PCR test intended for the qualitative detection of nucleic acid from SARS-CoV-2 in a nasopharyngeal swab specimen collected from individuals suspected of COVID-19 by their healthcare provider.This test has not been Food and Drug Administration (FDA) cleared or approved. This is a modified version of an approved Emergency Use Authorization (EUA) and is in the process of review by the FDA. Once authorized by the FDA, the issued EUA will be effective until the declaration that circumstances exist justifying the authorization of the emergency use of in vitro diagnostic tests for detection and/or diagnosis of COVID-19 is terminated under Section 564(b)(2) of the Act or the EUA is revoked under Section 564(g) of the Act.Fact Sheet for Healthcare Providers:https://www.[employer].comidel.com/sites/default/files/product/documents/Fact_Shee d_IX_Wxwtwovvp_Pbrv_WKLN-FfM-9.pdfFact Sheet for Healthcare Patients:https://www.[employer].com/sites/default/files/product/ documents/Covl_Ruwjm_Caoxcchs_Kydg_OAEJ-FhT-1.pdfPerforming Laboratory:[facility], [place] [id number] 05:21:00 Test Item Value Reference Range Interpretation Comments MAGNESIUM (BEAKER) (test code = 1.0 mg/dL 1.6-2.6 LL 627) Truck Driver [employer] ID - EDASIHEPATIC FUNCTION [id number] 04:50:00 Test Item Value Reference Range Interpretation Comments TOTAL PROTEIN (BEAKER) (test code 6.6 gm/dL 6.0-8.3 = 770) ALBUMIN (BEAKER) (test code = 3.2 g/dL 3.5-5.0 L 1145) BILIRUBIN TOTAL (BEAKER) (test 19.8 mg/dL 0.2-1.2 H code = 377) BILIRUBIN DIRECT (BEAKER) (test 14.6 mg/dL 0.1-0.5 H code = 706) ALKALINE PHOSPHATASE (BEAKER) 120 U/L 40-150 (test code = 346) AST (SGOT) (BEAKER) (test code = 30 U/L 5-34 353) ALT (SGPT) (BEAKER) (test code = 26 U/L 6-55 347) Truck [employer] ID - EDASISpecimen markedly ictericBASIC METABOLIC [id number] 04:45:00 Test Item Value Reference Range Interpretation Comments SODIUM (BEAKER) 137 meq/L 136-145 (test code = 381) POTASSIUM (BEAKER) 4.0 meq/L 3.5-5.1 (test code = 379) CHLORIDE (BEAKER) 102 meq/L 98-107 (test code = 382) CO2 (BEAKER) (test 25 meq/L 22-29 code = 355) BLOOD UREA NITROGEN 15 mg/dL 7-21 (BEAKER) (test code = 354) CREATININE (BEAKER) 0.94 mg/dL 0.57-1.25 (test code = 358) GLUCOSE RANDOM 133 mg/dL 70-105 H (BEAKER) (test code = 652) CALCIUM (BEAKER) 8.3 mg/dL 8.4-10.2 L (test code = 697) EGFR (BEAKER) (test 80 mL/min/1.73 ESTIMA CHILANGO GFR IS code = 1092) sq m NOT ACCURATE CREATININE CLEARANCE IN PREDICTING GLOMERULAR FILTRATION RATE . ESTIMATED GFR I S NOT APPLICABLE FOR DIALYSIS PATIEN TS. 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 - EDASISpecimen markedly ictericLIPID [id number] 04:45:00 Test Item Value Reference Range Interpretation Comments TRIGLYCERIDES (BEAKER) (test code = 121 mg/dL 540) CHOLESTEROL (BEAKER) (test code = 139 mg/dL 631) HDL CHOLESTEROL (BEAKER) (test code 8 mg/dL = 976) LDL CHOLESTEROL CALCULATED (BEAKER) 107 mg/dL (test code = 633) Triglyceride Reference Range: Low Risk <150 Borderline 150-199 High Risk 200-499 Very High Risk >=500Cholesterol Reference Range: Low Risk <200 Borderline 200-239 High Risk >240HDL Cholesterol Reference Range: Low Risk >=60 High Risk <40LDL Cholesterol Reference Range: Optimal <100 Near Optimal 100-129 Borderline 130-159 High 160-189 Very High >=190 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 - EDASISpecimen markedly ictericCBC W/PLT COUNT & AUTO [id number] 04:42:00 Test Item Value Reference Range Interpretation Comments WHITE BLOOD CELL COUNT (BEAKER) 12.7 K/ L 3.5-10.5 H (test code = 775) RED BLOOD CELL COUNT (BEAKER) 5.02 M/ L 4.63-6.08 (test code = 761) HEMOGLOBIN (BEAKER) (test code = 14.9 GM/DL 13.7-17.5 410) HEMATOCRIT (BEAKER) (test code = 45.6 % 40.1-51.0 411) MEAN CORPUSCULAR VOLUME (BEAKER) 90.8 fL 79.0-92.2 (test code = 753) MEAN CORPUSCULAR HEMOGLOBIN 29.7 pg 25.7-32.2 (BEAKER) (test code = 751) MEAN CORPUSCULAR HEMOGLOBIN CONC 32.7 GM/DL 32.3-36.5 (BEAKER) (test code = 752) RED CELL DISTRIBUTION WIDTH 15.7 % 11.6-14.4 H (BEAKER) (test code = 412) PLATELET COUNT (BEAKER) (test code 87 K/CU MM 150-450 L = 756) MEAN PLATELET VOLUME (BEAKER) 9.8 fL 9.4-12.4 (test code = 754) NUCLEATED RED BLOOD CELLS (BEAKER) 0 /100 WBC 0-0 (test code = 413) NEUTROPHILS RELATIVE PERCENT 88 % (BEAKER) (test code = 429) LYMPHOCYTES RELATIVE PERCENT 4 % (BEAKER) (test code = 430) MONOCYTES RELATIVE PERCENT 7 % (BEAKER) (test code = 431) EOSINOPHILS RELATIVE PERCENT 1 % (BEAKER) (test code = 432) BASOPHILS RELATIVE PERCENT 0 % (BEAKER) (test code = 437) NEUTROPHILS ABSOLUTE COUNT 11.20 K/ L 1.78-5.38 H (BEAKER) (test code = 670) LYMPHOCYTES ABSOLUTE COUNT 0.46 K/ L 1.32-3.57 L (BEAKER) (test code = 414) MONOCYTES ABSOLUTE COUNT (BEAKER) 0.84 K/ L 0.30-0.82 H (test code = 415) EOSINOPHILS ABSOLUTE COUNT 0.07 K/ L 0.04-0.54 (BEAKER) (test code = 416) BASOPHILS ABSOLUTE COUNT (BEAKER) 0.05 K/ L 0.01-0.08 (test code = 417) IMMATURE GRANULOCYTES-RELATIVE 1 % 0-1 PERCENT (BEAKER) (test code = 2801) PROTHROMBIN [id number] 04:17:00 Test Item Value Reference Range Interpretation Comments PROTIME (BEAKER) (test code = 15.5 seconds 11.9-14.2 H 759) INR (BEAKER) (test code = 370) 1.26 <=5.90 Effective 02/05/2019: PT Reference Range ChangeNew: 11.9-14.2 Previous: 11.7- 14.7RECOMMENDED COUMADIN/WARFARIN INR THERAPY RANGESSTANDARD DOSE: 2.0-3.0 Includes: PROPHYLAXIS for venous thrombosis, systemic embolization; TREATMENT for venous thrombosis and/or pulmonary embolus.HIGH RISK: Target INR is2.5-3.5 for patients wiht mechanical heart valves.
[2021-12-07] MEDS ORDERED: NA CHLORIDE 0.9% 1,000 ML ONE (23:39)
[2021-12-07] MEDS ORDERED: ACETAMINOPHEN 500 MG TAB ONE (23:44)
[2021-12-08] MEDS ORDERED: CEFEPIME 1 GM/VIAL ONE (00:05)
[2021-12-08] MEDS ORDERED: NA CHLORIDE 0.9% 250 ML ONE (00:05)
[2021-12-08 00:37] LABS: Absolute Lymphocytes (CBC) 0.1 K/uL (0.7-4.9); Hematocrit 32.2 % (39.6-49.0); Lymphocytes % 2.6 % (15.3-44.8); MPV 8.3 fL (7.6-11.3); RBC Red Blood Cell Count 4.53 M/uL (4.33-5.43)
[2021-12-08 00:41] LABS: Protime INR 1.46
[2021-12-08] MEDS ORDERED: NA CHLORIDE 0.9% 1,000 ML ONE ×2 (00:57→01:05)
[2021-12-08 00:59] LABS: Albumin 2.4 g/dL (3.4-5.0); Bilirubin Total 1.5 mg/dL (0.2-1.0); Protein, Total 6.7 g/dL (6.4-8.2)
[2021-12-08 01:00] LABS: Magnesium 1.4 mg/dL (1.8-2.4)
[2021-12-08] MEDS ORDERED: Levofloxacin500mg IV 500 MG/100 ML BAG IV ONE (01:05)
[2021-12-08] MEDS ORDERED: Magnesium Sulfate 2gm IVPB 2 G/50 ML BAG IV ONE (01:13)
[2021-12-08 01:23] LABS: Anisocytosis 1+; Blood Morphology Comment NOTED (NOT SEEN); Hypochromasia 1+; Ovalocytes 3+; Platelet Estimate ADEQ
[2021-12-08 01:24] LABS: SARS-COV-2 RT PCR POSITIVE (NEGATIVE)
[2021-12-08] MEDS ORDERED: POTASSIUM 25 MEQ EFFERV TAB ONE (01:25)
[2021-12-08 02:02] LABS: C-Reactive Protein 23.6 mg/L (<3.00)
--- NOTE | 2021-12-08 02:05 | ER ---
Nurse's Notes [facility] Name: Burton Mcduffie Age: 71 yrs Sex: Male : 1950 Arrival Date: 12/07/2021 Time: 22:55 Bed 17 Private MD: Diagnosis: Severe sepsis with septic shock;Hypokalemia;Hypomagnesemia;Other ascites-HEPATITIS C;Hypotension, unspecified;Coronavirus infection, unspecified;Pneumonia due to SARS-associated coronavirus-Multifocal Presentation: 12/07 23:00 Chief complaint: EMS states: pt's states pt fell out of bed, pt has a hx of sm5 seizures and she is unsure whether he had one tonight. pt altered per , normally a+ox4. Coronavirus screen:. Ebola Screen: No symptoms or risks identified at this time. Initial Sepsis Screen: Does the patient meet any 2 criteria? RR > 20 per min. Temp <36.0*C (96.8*F)) or > 38.3*C (100.9*F). Altered Mental Status. HR > 90 bpm. Yes Does the patient have a suspected source of infection? No. Patient's initial sepsis screen is negative. Risk Assessment: Do you want to hurt yourself or someone else? Patient reports no desire to harm self or others. Onset of symptoms was December 07, 2021. 23:00 Method Of Arrival: EMS: [facility] [place] [id number] 23:00 Acuity: MEAGAN 2 sm5 Triage Assessment: 23:00 General: Appears ill, Behavior is cooperative. Pain: Denies pain. Neuro: Level of [facility] Consciousness is awake, alert, confused, Oriented to person, place. Cardiovascular: No deficits noted. Capillary refill < 3 seconds Patient's skin is warm and dry. Respiratory: Airway is patent Trachea midline Respiratory effort is even, labored. GI: No deficits noted. Abdomen is round. Historical: - Allergies: 23:33 Amitriptyline; sm5 23:33 Tape; sm5 23:33 Vancomycin; sm5 - PMHx: 23:33 Arthritis; BPH; Diabetes - IDDM; GERD; Hyperlipidemia; Hypertension; Hypothyroidism; sm5 Kidney stones; Leukemia; neuropathy; UTI; - Immunization history:: Client reports receiving the 2nd dose of the Covid vaccine, Flu vaccine is up to date. - Social history:: Smoking status: Patient denies any tobacco usage or history of. Screenin/31 00:58 Abuse screen: Denies threats or abuse. Denies injuries from another. Nutritional sm5 screening: No deficits noted. Tuberculosis screening: No symptoms or risk factors identified. Fall Risk Fall in past 12 months (25 points). Secondary diagnosis (15 points) seizures, CVA, IV access (20 points). Ambulatory Aid- None/Bed Rest/Nurse Assist (0 pts). Gait- Normal/Bed Rest/Wheelchair (0 pts) Mental Status- Overestimates/Forgets Limitations (15 pts.). Total Kline Fall Scale indicates High Risk Score (45 or more points). Fall prevention measures have been instituted. Side Rails Up X 2 Placed Close to Nursing Station Frequent Obs/Assessments Occuring Family Present and informed to notify staff if the need to leave the bedside As available patient and family educated on Fall Prevention Program and Strategies. Assessment: 00:00 Reassessment: No changes from previously documented assessment. Patient and/or family sm5 updated on plan of care and expected duration. Pain level reassessed. 01:03 Reassessment: No changes from previously documented assessment. sm5 03:04 Reassessment: 4x4 gauze applied to pt's chronic wound on abdomen. sm5 04:31 Reassessment: No changes from previously documented assessment. Patient and/or family sm5 updated on plan of care and expected duration. Pain level reassessed. Vital Signs: 12/07 23:00 BP 92 / 52; Pulse 117; Resp 24; Temp 102(R); Pulse Ox 90% on R/A; sm5 23:34 Weight 94.35 kg; Height 5 ft. 9 in. (175.26 cm); 5 12/08 00:00 BP 114 / 59; Pulse 113; Resp 22; Pulse Ox 92% on R/A; sm5 00:57 BP 78 / 39; Pulse 109; Resp 23; Pulse Ox 97% on R/A; sm5 01:09 BP 96 / 41; Pulse 107; Resp 22; Pulse Ox 97% on R/A; sm5 01:21 BP 105 / 56; Pulse 106; Resp 22; Pulse Ox 95% on R/A; sm5 02:52 BP 94 / 49; Pulse 95; Resp 19; Temp 98.4(O); Pulse Ox 97% on R/A; sm5 03:38 BP 79 / 38; Pulse 90; Resp 19; Pulse Ox 96% on R/A; sm5 03:43 BP 92 / 46; sm5 04:29 BP 95 / 59; Pulse 92; Resp 17; Pulse Ox 98% on R/A; sm5 12/07 23:34 Body Mass Index 30.72 (94.35 kg, 175.26 cm) 5 ED Course: 12/07 22:55 Patient arrived in ED. jr8 22:55 Greg Wong PA is PHCP. jr8 22:55 Eliseo Wick MD is Attending Physician. jr8 22:59 Dione Milligan, MADI is Primary Nurse. 5 23:01 Triage completed. sm5 23:34 Arm band placed on right wrist. sm5 23:44 Chest Single View XRAY In Process Unspecified. EDMS 12/08 00:04 Blood Culture Adult (2) Sent. sm5 00:04 CBC with Diff Sent. sm5 00:04 CMP Sent. sm5 00:04 Lactate Sent. sm5 00:04 Protime (+inr) Sent. sm5 00:04 Ptt, Activated Sent. sm5 00:05 AMMONIA Sent. sm5 00:05 Magnesium Sent. sm5 00:05 Troponin High Sensitivity Sent. sm5 00:05 BNP Sent. sm5 00:07 Maintain EMS IV. Dressing intact. Good blood return noted. Site clean \T\ dry. Gauge \T\ sm 5 site: 20G L hand. 00:07 Inserted saline lock: 24 gauge in right antecubital area, using aseptic technique. 5 Blood collected. 01:00 Patient has correct armband on for positive identification. Bed in low position. Call 5 light in reach. Side rails up X2. desk monitor on. Pulse ox on. NIBP on. 01:36 initiated a transfer with Jennifer from [facility]. [facility] denied due to mw2 capacity. 02:04 Kunal Reeves MD is Hospitalizing Provider. jr8 02:36 CT Chest, Abdomen, Pelvis - W/Contrast In Process Unspecified. EDMS 02:51 No provider procedures requiring assistance completed. sm5 03:35 initiated a transfer with Deborah from [facility] Transfer [place]. mw2 04:08 administrative approval given by Deborah Pineda/ patient has been accepted to [address] [facility] 8B bed 834/ Dr. Owens accepted the patient in transfer/ report to be called to [phone]. 04:31 Patient transferred, IV remains in place. 5 Administered Medications: 12/07 23:40 Drug: NS 0.9% (30 ml/kg) 30 ml/kg Route: IV; Rate: bolus; Site: left hand; 5 12/08 03:44 Follow up: IV Status: Completed infusion; IV Intake: 2830ml 5 12/07 23:43 Drug: Acetaminophen 1000 mg Route: PO; sm5 12/08 03:44 Follow up: Response: Temperature is decreased 5 00:06 Drug: Cefepime 1 grams Route: IVPB; Rate: 200 ml/hr; Infused Over: 30 mins; Site: left 5 hand; 00:38 Follow up: IV Status: Completed infusion; IV Intake: 100ml 5 01:08 Drug: LevaQUIN (levofloxacin) 500 mg Volume: 100 ml; Route: IVPB; Infused Over: 60 5 mins; Site: left hand; 02:15 Follow up: IV Status: Completed infusion; IV Intake: 100ml 5 01:20 Drug: Magnesium Sulfate 2 grams Route: IVPB; Infused Over: 2 hrs; Site: right 5 antecubital; 03:45 Follow up: IV Status: Completed infusion; IV Intake: 100ml 5 01:43 Drug: Potassium Effervescent Tablet 50 mEq Route: PO; 5 03:45 Follow up: Response: No adverse reaction sm5 Intake: 00:38 IV: 100ml; Total: 100ml. sm5 02:15 IV: 100ml; Total: 200ml. sm5 03:44 IV: 2830ml; Total: 3030ml. sm5 03:45 IV: 100ml; Total: 3130ml. 5 Outcome: 02:04 Decision to Hospitalize by Provider. jr8 03:46 ER care complete, transfer ordered by MD. powell 04:30 Transferred by ground EMS to [facility], Transfer form 5 completed. X-rays sent w/ patient. 04:30 Condition: stable 04:30 Instructed on the need for transfer. 04:52 Patient left the ED. sm5 Signatures: Dispatcher [employer] Eliseo Ceja MD MD cha Roszak, Josh, PA PA 8 Jannet Levi 2 Dione Milligan RN RN sm5 Corrections: (The following items were deleted from the chart) 04:24 03:35 initiated a transfer with Jose from [facility] Transfer [address]
--- NOTE | 2021-12-08 02:05 | EDPHYS ---
Physician Documentation [facility] Name: Burton Mcduffie Age: 71 yrs Sex: Male : 1950 Arrival Date: 12/07/2021 Time: 22:55 Bed 17 Private MD: ED Physician Eliseo Wick HPI: 12/08 00:49 This 71 yrs old Male presents to ER via EMS with complaints of Altered Mental Status, jr8 Fall Injury, Seizure. 00:49 The patient presents with confusion, decreased mental status. Onset: The jr8 symptoms/episode began/occurred acutely, today. Possible causes: sepsis, the patient has had a history of a fever, reportedly as high as 102 degrees Fahrenheit. Associated signs and symptoms: Pertinent positives: abdominal pain. Current symptoms: In the emergency department the patient's symptoms are unchanged from the initial presentation. Patient's baseline: Neuro: alert and fully oriented, Motor: no deficits, Ambulation: walks without assistance, Speech: normal. The patient has not experienced similar symptoms in the past. The patient has been recently seen by a physician:. the patient stated that he was seen [address] scans of his chest and abdomen secondary to chronic liver failure with cirrhosis of the liver. Patient recently had a stroke and seizure. Being cleared by cardiology neurology to get back on liver transplant list. Today became acutely altered with 102 fever. EMS called at that time. Patient also hypotensive on scene. Patient now alert to person and place but slow to respond.. Historical: - Allergies: 12/07 23:33 Amitriptyline; sm5 23:33 Tape; sm5 23:33 Vancomycin; sm5 - PMHx: 23:33 Arthritis; BPH; Diabetes - IDDM; GERD; Hyperlipidemia; Hypertension; Hypothyroidism; sm5 Kidney stones; Leukemia; neuropathy; UTI; - Immunization history:: Client reports receiving the 2nd dose of the Covid vaccine, Flu vaccine is up to date. - Social history:: Smoking status: Patient denies any tobacco usage or history of. ROS: 12/08 00:49 Eyes: Negative for injury, pain, redness, and discharge, ENT: Negative for injury, jr8 pain, and discharge, Neck: Negative for injury, pain, and swelling, Cardiovascular: Negative for chest pain, palpitations, and edema, Respiratory: Negative for shortness of breath, cough, wheezing, and pleuritic chest pain, Abdomen/GI: Negative for abdominal pain, nausea, vomiting, diarrhea, and constipation, Back: Negative for injury and pain, MS/Extremity: Negative for injury and deformity, Skin: Negative for injury, rash, and discoloration, Neuro: Negative for headache, weakness, numbness, tingling, and seizure. Positive for altered mental status Constitutional: Positive for fever. Exam: 00:49 Eyes: Pupils equal round and reactive to light, extra-ocular motions intact. Lids and jr8 lashes normal. Conjunctiva and sclera are non-icteric and not injected. Cornea within normal limits. Periorbital areas with no swelling, redness, or edema. ENT: Nares patent. No nasal discharge, no septal abnormalities noted. Tympanic membranes are normal and external auditory canals are clear. Oropharynx with no redness, swelling, or masses, exudates, or evidence of obstruction, uvula midline. Mucous membranes moist. 00:49 Back: No spinal tenderness. No costovertebral tenderness. Full range of motion. Skin: Warm, dry with normal turgor. Normal color with no rashes, no lesions, and no evidence of cellulitis. MS/ Extremity: Pulses equal, no cyanosis. Neurovascular intact. Full, normal range of motion. 00:49 Constitutional: The patient appears awake, febrile, obviously ill. 00:49 Cardiovascular: Rate: tachycardic, Rhythm: regular, Pulses: Pulses are 2+ in right radial artery and left radial artery. Heart sounds: normal, normal S1and S2, Edema: is not appreciated. 00:49 Respiratory: the patient does not display signs of respiratory distress, Respirations: tachypnea, that is mild, Breath sounds: are clear throughout, no bronchial sounds, no decreased breath sounds, no rales, rhonchi, no stridor, no wheezing. 00:49 Abdomen/GI: Inspection: distension, that is mild, obese Bowel sounds: active, all quadrants, Palpation: abdomen is soft and non-tender, in all quadrants. 00:49 Neuro: Orientation: to person, place, Mentation: able to follow commands, slow to respond, Cranial nerves: CN I not tested, CN II- XII are normal as tested, extraocular movements are intact, Motor: moves all fours, Sensation: no obvious gross deficits, seizure activity, is not displayed by the patient, Abnormal movements: there are no abnormal movements. Vital Signs: 12/07 23:00 BP 92 / 52; Pulse 117; Resp 24; Temp 102(R); Pulse Ox 90% on R/A; [facility] 23:34 Weight 94.35 kg; Height 5 ft. 9 in. (175.26 cm); [facility] 12/08 00:00 BP 114 / 59; Pulse 113; Resp 22; Pulse Ox 92% on R/A; 5 00:57 BP 78 / 39; Pulse 109; Resp 23; Pulse Ox 97% on R/A; 5 01:09 BP 96 / 41; Pulse 107; Resp 22; Pulse Ox 97% on R/A; 5 01:21 BP 105 / 56; Pulse 106; Resp 22; Pulse Ox 95% on R/A; 5 02:52 BP 94 / 49; Pulse 95; Resp 19; Temp 98.4(O); Pulse Ox 97% on R/A; 5 03:38 BP 79 / 38; Pulse 90; Resp 19; Pulse Ox 96% on R/A; 5 03:43 BP 92 / 46; 5 04:29 BP 95 / 59; Pulse 92; Resp 17; Pulse Ox 98% on R/A; [facility] 12/07 23:34 Body Mass Index 30.72 (94.35 kg, 175.26 cm) [facility] MDM: 12/07 22:55 Patient medically screened. [facility] 12/08 02:03 Data reviewed: vital signs, nurses notes, lab test result(s), EKG, radiologic studies, [facility] CT scan, plain films. Data interpreted: Pulse oximetry: on room air is 90 %. Interpretation: hypoxia. Counseling: I had a detailed discussion with the patient and/or guardian regarding: the historical points, exam findings, and any diagnostic results supporting the discharge/admit diagnosis, lab results, radiology results, the need for further work-up and treatment in the hospital. ED course: Attempted to Transfer to [facility] but was at capacity. Attempting transfer to [facility] and [facility]. 12/07 22:59 Order name: Blood Culture Adult (2) [facility] 12/07 22:59 Order name: CBC with Diff; Complete Time: 01:41 [facility] 12/07 22:59 Order name: CMP; Complete Time: 02:02 jr8 12/07 22:59 Order name: Lactate; Complete Time: 01:03 12/07 22:59 Order name: Protime (+inr); Complete Time: 00:42 jr8 12/07 22:59 Order name: Ptt, Activated; Complete Time: 00:49 8 12/07 22:59 Order name: AMMONIA; Complete Time: 00:48 12/07 22:59 Order name: COVID-19/FLU A+B (Document "Date of Onset" if Symptomatic); Complete Time: 01:41 12/07 22:59 Order name: Magnesium; Complete Time: 02:02 12/07 22:59 Order name: BNP; Complete Time: 02:02 12/07 22:59 Order name: Troponin High Sensitivity; Complete Time: 02:02 12/08 00:45 Order name: Manual Differential; Complete Time: 01:26 EDMS 12/07 22:59 Order name: Accucheck; Complete Time: 02:01 12/07 22:59 Order name: Cardiac monitoring; Complete Time: 23:33 8 12/07 22:59 Order name: Cath 8 12/07 22:59 Order name: EKG - Nurse/Tech; Complete Time: 00:04 12/07 22:59 Order name: IV Saline Lock - Large Bore; Complete Time: 00:04 8 12/07 22:59 Order name: Labs collected and sent; Complete Time: 00:04 12/07 23:20 Order name: Chest Single View XRAY vc1 12/08 01:44 Order name: CT Chest, Abdomen, Pelvis - W/Contrast jr8 12/08 01:55 Order name: C-Reactive Protein; Complete Time: 02:02 EDMS 12/08 04:12 Order name: Lactate Sepsis 2 HR Follow-up EDMS 12/07 22:59 Order name: O2 Per Protocol; Complete Time: 23:33 jr8 12/07 22:59 Order name: O2 Sat Monitoring; Complete Time: 23:33 jr8 Administered Medications: 12/07 23:40 Drug: NS 0.9% (30 ml/kg) 30 ml/kg Route: IV; Rate: bolus; Site: left hand; 5 12/08 03:44 Follow up: IV Status: Completed infusion; IV Intake: 2830ml 5 12/07 23:43 Drug: Acetaminophen 1000 mg Route: PO; 5 12/08 03:44 Follow up: Response: Temperature is decreased [facility] 00:06 Drug: Cefepime 1 grams Route: IVPB; Rate: 200 ml/hr; Infused Over: 30 mins; Site: left 5 hand; 00:38 Follow up: IV Status: Completed infusion; IV Intake: 100ml 5 01:08 Drug: LevaQUIN (levofloxacin) 500 mg Volume: 100 ml; Route: IVPB; Infused Over: 60 sm5 mins; Site: left hand; 02:15 Follow up: IV Status: Completed infusion; IV Intake: 100ml 5 01:20 Drug: Magnesium Sulfate 2 grams Route: IVPB; Infused Over: 2 hrs; Site: right [facility] antecubital; 03:45 Follow up: IV Status: Completed infusion; IV Intake: 100ml 5 01:43 Drug: Potassium Effervescent Tablet 50 mEq Route: PO; [facility] 03:45 Follow up: Response: No adverse reaction [facility] Disposition: 06:43 Co-signature as Attending Physician, Eliseo Wick MD I agree with the assessment and sherry plan of care. Disposition Summary: 12/08/21 03:46 Transfer Ordered Transfer Location: [facility] sherry Reason: Higher level of care sherry Condition: Serious(12/08/21 03:46) sherry Problem: new(12/08/21 03:46) sherry Symptoms: have improved(12/08/21 03:46) sherry Accepting Physician: to icu, dr naranjo [facility](12/08/21 04:52) 5 Diagnosis - Severe sepsis with septic shock sherry - Hypokalemia sherry - Hypomagnesemia sherry - Other ascites - HEPATITIS C sherry - Hypotension, unspecified(12/08/21 03:46) sherry - Coronavirus infection, unspecified sherry - Pneumonia due to SARS-associated coronavirus - Multifocal (12/08/21 03:46) sherry Forms: - Medication Reconciliation Form sherry - SBAR form sherry Signatures: Dispatcher [employer] Eliseo Ceja MD MD cha Roszak, Josh, PA PA jr8 Israel Jones, [employer]-C [employer]-Cla1 Margarita Dozier RN RN cg Chel, Dione, RN RN sm5 Corrections: (The following items were deleted from the chart) 00:52 00:49 Eyes: Negative for injury, pain, redness, and discharge, ENT: Negative for jr8 injury, pain, and discharge, Neck: Negative for injury, pain, and swelling, Cardiovascular: Negative for chest pain, palpitations, and edema, Respiratory: Negative for shortness of breath, cough, wheezing, and pleuritic chest pain, Abdomen/GI: Negative for abdominal pain, nausea, vomiting, diarrhea, and constipation, Back: Negative for injury and pain, MS/Extremity: Negative for injury and deformity, Skin: Negative for injury, rash, and discoloration, Neuro: Negative for headache, weakness, numbness, tingling, and seizure, jr8 01:55 01:43 C-REACTIVE PROTEIN+C.LAB.BRZ ordered. EDMS EDMS 02:19 02:04 Intensive Care Unit jr8 cg 02:19 02:04 jr8 cg 02:43 02:04 Inpatient Admission jr8 jr8 02:43 02:04 [place]mit[place]un, Kunal jr8 jr8 02:43 02:04 Stable jr8 jr8 02:43 02:04 new jr8 jr8 02:43 02:04 have improved jr8 jr8 02:43 02:04 Standard jr8 jr8 02:43 02:04 Pneumonia due to SARS-associated coronavirus jr8 jr8 02:43 02:04 Hypotension, unspecified jr8 jr8 02:43 02:04 Altered mental status, unspecified jr8 jr8 02:43 02:19 [facility] ER HOLD cg jr8 02:43 02:19 ERHOLD- cg jr8 03:33 02:03 ED course: Attempted to Transfer to [facility] but was at capacity. jr8 Family does not want to go anywhere else. Will admit to ICU here for further evaluation . jr8 04:52 03:46 to icu, dr naranjo, [facility] sm5
[2021-12-08 05:04] VITALS: TEMP 98.4
[2021-12-08 05:08] VITALS: BP 95/59; O2SAT 98
--- NOTE | 2021-12-08 09:48 | RAD REPORT ---
EXAM DESCRIPTION: RAD - Chest Single View - 12/07/2021 11:42 pm COMPARISON: None. CLINICAL HISTORY: [facility] MAIN FEVER FINDINGS: A single AP view of the chest demonstrates a mildly enlarged cardiomediastinal silhouette. No pneumothorax or pleural effusion. Perihilar opacities are present. Osseous structures are intact. IMPRESSION: Multifocal pneumonia. Electronically signed by: Hong Magallanes MD 12/07/2021 11:53 PM CDT Due to temporary technical issues with the PACS/Fluency reporting system, reports are being signed by the in house radiologist without review as a courtesy to ensure prompt reporting. The interpreting r adiologist is fully responsible for the content of the report.
--- NOTE | 2021-12-08 09:59 | RAD REPORT ---
EXAM DESCRIPTION: CT - Chest Abdomen Pelvis W Cont - 12/08/2021 5:12 am CLINICAL HISTORY: 71 years Male FEVER. Patient fell out of bed, altered, postop cholecystectomy 2 mo nths ago, history of leukemia, kidney stones, diabetes TECHNIQUE: CT imaging of the chest, abdomen and pelvis with intravenous contrast administration. Sag ittal and coronal reconstructed images were performed. The CT study is performed according to ALARA ( as low as reasonably achievable) or ALARA/IMAGE GENTLY, with automatic adjustment of mA and/or kV acc ording to patient size. Performed on: 12/08/2021 at 2:22 AM COMPARISON: CT abdomen and pelvis with contrast performed on 06/04/2020 FINDINGS: CHEST: Lungs: The lungs are well-expanded. There is diffuse reticular thickening throughout the lungs likely due to chronic fibrotic changes. There is mild left basilar atelectasis. There is a very small left pleural effusion. Heart: The heart is normal in size. There is no pericardial effusion. Mediastinum: The mediastinum is unremarkable. The mediastinal vessels are normal in caliber and con tour. Bones: No acute osseous abnormalities are identified. Soft tissues: No focal soft tissue abnormalities are identified. Lymphadenopathy: No pathologic hilar, mediastinal or axillary lymphadenopathy is identified. Small nonspecific mediastinal lymph nodes are noted. ABDOMEN/PELVIS: Liver: The liver measures approximately 14.5 cm in craniocaudal dimension. There is a nodular contour of the liver commonly seen with hepatic cirrhosis. No focal hepatic abnormalities are identified. Li [place] attenuation is within normal limits. There is mild intrahepatic pneumobilia. The patient is statu s post recent cholecystectomy. Spleen: Spleen is markedly enlarged and measures approximately 19 cm in craniocaudal dimension. No fo camilo splenic abnormalities are identified. There are multiple splenic, splenorenal renal and gastroeso phageal varices. Gallbladder and bile duct: The gallbladder is surgically absent. There is no biliary ductal dilatat ion. As noted above, there is intrahepatic and also extrahepatic pneumobilia. Pancreas: The pancreas is grossly normal in size and configuration. Adrenal Glands: The adrenal glands are normal in size and configuration. Kidneys: The kidneys are normal in size and configuration. There is no evidence of hydronephrosis. Th ere are bilateral nonobstructing renal calculi. There is a 6 mm calcification in the lower pole of th e left kidney. No definite solid or cystic renal mass lesions are identified. Stomach: The stomach is grossly normal. There is no definite hiatal hernia. As noted above, there are prominent gastroesophageal varices. Bowel: The bowel gas pattern is non specific and non obstructive. There is scattered colonic divertic ulosis. Appendix: The appendix is normal. Free air: There is no evidence of free air. Free fluid: There is a moderate volume of low density ascites likely related to underlying hepatic ci rrhosis. Vasculature: The aorta is normal in caliber and contour. The inferior vena cava is grossly unremarkab le. Lymphadenopathy: No pathologic lymphadenopathy is identified. Bladder: The bladder is well distended and smooth in contour. Reproductive: The prostate gland is grossly within normal limits. Bones: No acute osseous abnormalities are identified. There are chronic degenerative changes of the l umbar spine and there is a prominent disc osteophyte complex at L4-L5 similar when compared to the pr ior study. Soft tissues: No focal soft tissue abnormalities are identified. IMPRESSION: CT CHEST: 1. There is a very small left pleural effusion with mild left basilar atelectasis. 2. There is diffuse reticular thickening throughout the lungs likely due to chronic fibrotic change s. CT ABDOMEN AND PELVIS: 1. Findings compatible with hepatic cirrhosis and portal hypertension. There is a moderate volume o f low density ascites likely related to underlying hepatic cirrhosis. 2. Status post cholecystectomy. There is mild intrahepatic and extrahepatic pneumobilia. 3. Bilateral nonobstructing renal calculi. 4. Scattered colonic diverticulosis. 5. Chronic degenerative changes of the lumbar spine with a prominent disc osteophyte complex at L4- L5 similar when compared to the prior study. Electronically signed by: Jemima Schwarz DO 12/08/2021 3:18 AM CDT Due to temporary technical issues with the PACS/[employer] reporting system, reports are being signed by the in house radiologist without review as a courtesy to ensure prompt reporting. The interpreting r adiologist is fully responsible for the content of the report.
--- NOTE | 2021-12-12 11:27 | EKG ---
Test Date: 2021-12-07 Test Time: 23:49:29 Radiographer: ALBARO MEASUREMENT RESULTS: Intervals: Rate: 113 SD: 140 QRSD: 86 QT: 294 QTc: 403 [place]: P: 40 SD: 140 QRS: 54 T: 13 INTERPRETIVE STATEMENTS: Sinus tachycardia Otherwise normal ECG Compared to ECG 06/04/2020 15:55:11 Sinus rhythm no longer present Electronically Signed On 12-12-21 11:14:28 CDT by Davy Cardenas
== END 2021-12-08 04:52 | disposition short-term general hospital (02) ==
LOC: ER 22:45
DX: A41.89 Other specified sepsis (principal); U07.1 COVID-19; J12.82 Pneumonia due to coronavirus disease 2019; R65.21 Severe sepsis with septic shock; B19.20 Unspecified viral hepatitis C without hepatic coma; R18.8 Other ascites; E87.6 Hypokalemia; E83.42 Hypomagnesemia; I95.9 Hypotension, unspecified; I10 Essential (primary) hypertension; E11.9 Type 2 diabetes mellitus without complications; Z85.6 Personal history of leukemia; Z87.442 Personal history of urinary calculi; Z88.3 Allergy status to other anti-infective agents; Z88.8 Allergy status to other drugs, medicaments and biological substances
CPT/HCPCS: 93005; 87040 ×2; 85025; 36415; 82140; 83735; 87205 ×3; 85610; 83605 ×2; 85730; 87077 ×2; 87186 ×2; 84484; 80053; 83880; 0240U; 86140; 71260; 74177; 71045; 99285; Q9967; J3475; J7050; J7030 ×3; J0692

== ENCOUNTER 2025-07-09 05:08 | Emergency (ER) | payer OTHER ==
[2025-07-09] MEDS ORDERED: ONDANSETRON 4 MG/2 ML VIAL ONE (05:40)
[2025-07-09] MEDS ORDERED: NA CHLORIDE 0.9% 100 ML ONE (05:41)
[2025-07-09] MEDS ORDERED: TRANEXAMIC ACID 1,000 MG/10 ML VIAL IV ONE (05:41)
[2025-07-09] MEDS ORDERED: ALBUMIN HUMAN 25% 100 ML IV ONE (05:41)
[2025-07-09 05:48] LABS: Absolute Lymphocytes (CBC) 0.3 K/uL (0.7-4.9); Hematocrit 29.3 % (39.6-49.0); Hemoglobin 9.4 g/dL (13.6-17.9); MCH 28.2 pg (27.0-35.0); MCHC 32.1 g/dL (32.0-36.0); MCV 88.0 fL (80-100); MPV 8.4 fL (7.6-11.3); Nucleated RBC Absolute Count 0.0 (0-0); Nucleated Red Blood Cells % 0.0 % (0-0); RBC Red Blood Cell Count 3.33 M/uL (4.33-5.43); White Blood Count 4.30 thou/uL (4.3-10.9)
[2025-07-09 05:58] LABS: PT Prothrombin Time 17.8 SECONDS (10-13.0); Protime INR 1.6
[2025-07-09 06:09] LABS: ALT/SGPT 22.0 U/L (16-61); AST/SGOT 32.0 U/L (15-37); Albumin 2.5 g/dL (3.4-5.0); Albumin/Globulin Ratio 0.7 (1.1-1.8); Alkaline Phosphatase 92.0 U/L (45-117); Anion Gap 11.5 mEq/L (5.0-15.0); BUN Blood Urea Nitrogen 26.0 mg/dL (7-18); Bilirubin Indirect, Calculated 1.5 mg/dL (0.2-0.8); Globulin 3.4 g/dL (2.3-3.5); Glucose Level 150.0 mg/dL (74-106); Magnesium 1.7 mg/dL (1.6-2.4); NT PRO-BNP 54.0 pg/mL (<125); Potassium 4.5 mEq/L (3.5-5.1); Troponin High Sensitivity 5.5 pg/mL (<58.9)
--- NOTE | 2025-07-09 06:30 | RAD REPORT ---
EXAM: CT Maxillofacial Without Intravenous Contrast CLINICAL HISTORY: The patient is 75 years old and is Male; facial injury TECHNIQUE: Axial computed tomography images of the face without intravenous contrast. Sagittal and coronal r eformatted images were created and reviewed. This CT exam was performed using one or more of the following dose reduction techniques: automated exposure control, adjustment of the mA and/or kV acc ording to patient size, and/or use of iterative reconstruction technique. COMPARISON: CT head 06/04/2025. FINDINGS: BONES/JOINTS: The right mandibular condyle was partially excluded from the [id number]. Old a ppearing nasal fractures with nasal deviation to the right unchanged from previous. SOFT TISSUES: Unremarkable. VASCULATURE: Partial visualization of right carotid stent. Prominent vascular calcifications. ORBITS: Unremarkable. SINUSES: Unremarkable. No air-fluid levels. DENTAL: Many teeth are absent. Multifocal dental caries. NASAL CAVITY/SEPTUM: Nasal septal deviation to the left is unchanged. IMPRESSION: Chronic appearing findings. Electronically signed by: Abel Alcaraz MD 07/09/2025 06:26 AM CDT Due to temporary technical issues with the PACS/[employer] reporting system, reports are being kavon d by the in-house radiologist without review as a courtesy to ensure prompt reporting the interpreting radiologist is fully responsible for the content of the report. Transcribed Date/Time: 07/09/2025 6:30 AM
--- NOTE | 2025-07-09 06:35 | RAD REPORT ---
EXAM: CT Head and Cervical Spine Without Intravenous Contrast CLINICAL HISTORY: The patient is 75 years old and is Male; fall , head injury TECHNIQUE: Axial computed tomography images of the head/brain and cervical spine without intravenous contrast. Sagittal and coronal reformatted images were created and reviewed. This CT exam was performed using one or more of the following dose reduction techniques: automated exposure control, adjustmen t of the mA and/or kV according to patient size, and/or use of iterative reconstruction technique. COMPARISON: 06/04/2025 FINDINGS: ARTIFACTS: Some images are degraded by patient motion artifact. BRAIN: Cortical volume loss. Areas of diminished attenuation in the bilateral white matter are no nspecific but most consistent with chronic microvascular ischemic changes. Redemonstration of minimal encephalomalacia near the right precentral gyrus. No hemorrhage. VENTRICLES: Unremarkable. No ventriculomegaly. SKULL: No acute fracture. SINUSES: Unremarkable as visualized. No acute sinusitis. MASTOID AIR CELLS: Unremarkable as visualized. No mastoid effusion. VERTEBRAE: See below. DISCS/SPINAL CANAL/NEURAL FORAMINA: Advanced degenerative changes within the cervical spine with disc space narrowing and marginal osteophytes greatest from C4-5 through C6-7. Diffuse facet arthritis asymmetric to the left. Partial bony fusion of posterior elements of C2-3 asymmetric to the left. Diffuse osteopenia. Arthritic changes of the uncovertebral joints. At least mild-moderate multilevel canal and foraminal narrowing due to hypertrophic changes. Minimal rotational subluxation of C1 on C2 favored to be positional. SOFT TISSUES: Unremarkable. VASCULATURE: Scattered vascular calcifications. Right carotid endovascular stent. LUNG APICES: Scarring or fibrosis in the lung apices. IMPRESSION: Chronic appearing findings in the head and cervical spine. Consider MRI if symptoms persist. Electronically signed by: Abel Alcaraz MD 07/09/2025 06:30 AM CDT Due to temporary technical issues with the PACS/[employer] reporting system, reports are being kavon d by the in-house radiologist without review as a courtesy to ensure prompt reporting the interpreting radiologist is fully responsible for the content of the report. Transcribed Date/Time: 07/09/2025 6:34 AM
--- NOTE | 2025-07-09 06:39 | RAD REPORT ---
PROCEDURE: CT Chest, Abdomen and Pelvis Without Intravenous Contrast CLINICAL INDICATION: The patient is 75 years old and is Male; fall, injury Bed Name: 4 TECHNIQUE: Axial computed tomography images of the chest, abdomen and pelvis without intravenous contrast. Sag ittal and coronal reformatted images were created and reviewed. This CT exam was performed using one or more of the following dose reduction techniques: automated exposure control, adjustment of t he mA and/or kV according to patient size, and/or use of iterative reconstruction technique. COMPARISON: No relevant prior studies available. FINDINGS: CHEST: LUNGS AND PLEURAL SPACES: Diffuse bilateral reticular lung markings, similar to but improved from p rior exam. No additional focal consolidation. No significant effusion. No pneumothorax. HEART: No cardiomegaly. No significant pericardial effusion. ABDOMEN: LIVER: Hepatic cirrhosis. GALLBLADDER AND BILE DUCTS: Gallstones within a contracted gallbladder. No ductal dilation. PANCREAS: Unremarkable No ductal dilation. SPLEEN: Splenomegaly. ADRENALS: Unremarkable No mass. KIDNEYS AND URETERS: Nonobstructing bilateral intrarenal stones. STOMACH AND BOWEL: Diffuse thickening of the ascending through transverse colon. This could be seen with inflammatory or infectious colitis or may be seen with hypoproteinemia, or portal hypertensive colopathy/enteropathy, as is favored in this case. Colonic diverticulosis without evidence of acute diverticulitis. No obstruction. PELVIS: APPENDIX: No findings to suggest acute appendicitis. BLADDER: Unremarkable No stones. REPRODUCTIVE: The prostate gland is enlarged. Correlation with PSA values may be helpful if not p reviously performed. CHEST, ABDOMEN and PELVIS: INTRAPERITONEAL SPACE: Small volume abdominopelvic ascites. Small fat-containing umbilical hernia with internal ascites and fat stranding. No free air. BONES/JOINTS: Degenerative changes of the bilateral wrists. Heterogenous appearance of the bone marrow diffusely, which appears slightly progressed from reference exam. Bilateral L5 pars defects. No displaced or depressed rib fractures. No appreciable sternal or vertebral fractures. No acute osseous abnormality. SOFT TISSUES: Bilateral gynecomastia. VASCULATURE: Mild calcified atherosclerosis of the thoracic aorta without aneurysmal dilatation. Multivessel coronary artery calcifications. Extensive distal periesophageal and proximal perigastric varices. LYMPH NODES: Unremarkable No enlarged lymph nodes. IMPRESSION: 1. Allowing for lack of intravenous contrast, no acute traumatic abnormality of the chest, abdomen, or pelvis. 2. Hepatic cirrhosis with sequelae of portal hypertension, including splenomegaly, small volume abd ominopelvic ascites, and extensive distal periesophageal and proximal perigastric varices. 3. Diffuse thickening of the ascending through transverse colon. This could be seen with inflammato ry or infectious colitis or may be seen with hypoproteinemia, or portal hypertensive colopathy/enteropathy, as is favored in this case. 4. Heterogenous appearance of the bone marrow diffusely, which appears slightly progressed from ref erence exam. Nonspecific and may be seen with osteopenia or a number of systemic metabolic processes. 5. Additional nonacute findings as above. Electronically signed by: Silverio Garcia MD 07/09/2025 06:35 AM CDT RP Due to temporary technical issues with the PACS/[employer] reporting system, reports are being kavon d by the in-house radiologist without review as a courtesy to ensure prompt reporting the interpreting radiologist is fully responsible for the content of the report. Transcribed Date/Time: 07/09/2025 6:39 AM
[2025-07-09] MEDS ORDERED: PANTOPRAZOLE 40 MG INJ ONE (06:44)
[2025-07-09] MEDS ORDERED: CEFTRIAXONE 1000 MG/VIAL ONE (06:44)
[2025-07-09] MEDS ORDERED: NA CHLORIDE 0.9% 250 ML ONE (06:44)
[2025-07-09 06:47] LABS: Sqamous Epithelial <5 /HPF (None Seen); Urine Crystals Unidentified Few /HPF (None Seen); Urine Culture Reflex Order NOT NEEDED; Urine Microscopic Reflex YN ORDER UMIC
[2025-07-09] MEDS ORDERED: LORazepam 2 MG/ML VIAL ONE (06:50)
--- NOTE | 2025-07-09 06:52 | EDPHYS ---
Physician Documentation [facility] Name: Burton Arambula Age: 75 yrs Sex: Male : 1950 Arrival Date: 07/09/2025 Time: 05:08 Bed 4 Private MD: ED Physician Shi Majano HPI: 07/09 05:17 This 75 yrs old Male presents to ER via Unassigned with complaints of Fall sp4 Injury. 05:52 75-year-old male presents with EMS for acute hematemesis associated with fall at home, sp4 possible syncopal episode. Patient apparently vomited blood and then became dizzy and lightheaded and fell onto the floor. This caused laceration to the bridge of her nose. Patient has history of liver cirrhosis. History of paracentesis at the left lower abdominal location done in one of the [facility] yesterday. Past medical history also positive for arthritis, BPH, diabetes, GERD, hyperlipidemia, hypertension, hypothyroidism. Historical: - Allergies: 05:27 Amitriptyline; cp4 05:27 Tape; cp4 05:27 Vancomycin; cp4 - Home Meds: 05:52 allopurinol 300 mg Oral tablet 1 tab daily [Active]; amiloride 5 mg oral tablet 2 tabs cp4 daily [Active]; aspirin 81 mg Oral tablet,chewable 1 tab daily [Active]; furosemide 40 mg Oral tablet 1 tab twice a day [Active]; insulin glargine 100 unit/mL (3 mL) Sub-Q Insulin Pen 12 units every morning [Active]; Humalog U-100 Insulin 100 unit/mL Sub-Q cartridge 12 units before meals [Active]; lactulose 20 gram Oral Packet 3 times per day [Active]; levetiracetam 1,000 mg oral Tablet, Extended Release 24 hr 1 tab twice a day [Active]; levothyroxine 75 mcg tablet 1 tab daily [Active]; magnesium oxide 500 mg Oral capsule 1 cap 2 times per day [Active]; metoprolol tartrate 25 mg Oral tablet 0.5 tab [Active]; rifaximin 550 mg oral tablet 1 tab 2 times per day [Active]; ursodiol 300 mg Oral capsule 1 cap 2 times per day [Active]; - PMHx: 05:27 Arthritis; BPH; Diabetes - IDDM; GERD; Hyperlipidemia; Hypertension; Hypothyroidism; cp4 Kidney stones; Leukemia; neuropathy; UTI; Cirrhosis of liver; - Immunization history:: Adult Immunizations up to date. - Infectious Disease History:: Denies. - Social history:: Smoking status: Patient denies any tobacco usage or history of. - Family history:: not pertinent. ROS: 05:52 Constitutional: Negative for fever, chills, and weight loss, positive hematemesis, sp4 positive syncope, positive fall to the floor, positive for acute facial nasal injury 05:52 All other systems are negative, Exam: 05:52 Constitutional: Patient is frail elderly ill-appearing male, pale in appearance, signs sp4 of acute facial injuries including left-sided bridge of nose laceration. Left side of the face is covered in blood. Appears confused and has significant generalized weakness and signs of physical debility. Not able to provide any HPI Head/Face: Normocephalic, positive nasal swelling and bridge of the nose laceration. Positive facial contusions. Eyes: Pupils equal round and reactive to light, extra-ocular motions intact. Lids and lashes normal. Conjunctiva and sclera are not injected. Cornea within normal limits. Periorbital areas with no swelling, redness, or edema. ENT: Nares patent. No nasal discharge, no septal abnormalities noted. Tympanic membranes are normal and external auditory canals are clear. Oropharynx with no redness, swelling, or masses, exudates, or evidence of obstruction, uvula midline. Mucous membranes moist. Neck: Trachea midline, no thyromegaly or masses palpated, and no cervical lymphadenopathy. Supple, full range of motion without nuchal rigidity, or vertebral point tenderness. Chest/axilla: Normal chest wall appearance and motion. Nontender with no deformity. No lesions are appreciated. Cardiovascular: Regular rate and rhythm with a normal S1 and S2. No gallops, murmurs, or rubs. No pulse deficits. Respiratory: Lungs have equal breath sounds bilaterally, clear to auscultation and percussion. No rales, rhonchi or wheezes noted. No increased work of breathing, no retractions or nasal flaring. Abdomen/GI: Soft, with normal bowel sounds. No distension or tympany. No guarding or rebound. No evidence of tenderness throughout. Back: No spinal tenderness. No costovertebral tenderness. Male : Normal genitalia with no discharge or lesions. Skin: Warm, dry with normal turgor. Normal color with no rashes, no lesions, and no evidence of cellulitis. MS/ Extremity: Pulses equal, no cyanosis. Neurovascular intact. Full, normal range of motion. Neuro: Awake and alert, oriented to self only. Cranial nerves II-XII grossly intact. Motor strength 5/5 in all extremities. Sensory grossly intact. Psych: Awake, alert, oriented to self only. 06:49 ECG was reviewed by the Attending Physician. EKG 0609 sinus tachycardia rate 105, sp4 otherwise unremarkable Vital Signs: 05:24 BP 118 / 62; Pulse 104; Resp 18; Temp 98.2; Pulse Ox 100% ; Weight 81.65 kg; Height 5 cp4 ft. 9 in. ; Pain 0/10; 07:00 BP 120 / 61; Pulse 118; Resp 18; Pulse Ox 100% ; db 07:30 BP 134 / 65; Pulse 119; Resp 17; Pulse Ox 100% ; db 08:57 BP 115 / 64; Pulse 112; Resp 14; Pulse Ox 97% ; bp 05:24 Body Mass Index 26.58 (81.65 kg, 175.26 cm) cp4 05:24 Pain Scale: Adult cp4 [place] Coma Score: 05:52 Eye Response: spontaneous(4). Verbal Response: confused(4). Motor Response: obeys sp4 commands(6). Total: 14. MDM: 06:45 ED course: FINDINGS: BONES/JOINTS: The right mandibular condyle was partially excluded sp4 from the [id number]. Old appearing nasal fractures with nasal deviation to the right unchanged from previous. SOFT TISSUES: Unremarkable. VASCULATURE: Partial visualization of right carotid stent. Prominent vascular calcifications. ORBITS: Unremarkable. SINUSES: Unremarkable. No air-fluid levels. DENTAL: Many teeth are absent. Multifocal dental caries. NASAL CAVITY/SEPTUM: Nasal septal deviation to the left is unchanged. IMPRESSION: Chronic appearing findings. ED course: FINDINGS: ARTIFACTS: Some images are degraded by patient motion artifact. BRAIN: Cortical volume loss. Areas of diminished attenuation in the bilateral white matter are nonspecific but most consistent with chronic microvascular ischemic changes. Redemonstration of minimal encephalomalacia near the right precentral gyrus. No hemorrhage. VENTRICLES: Unremarkable. No ventriculomegaly. SKULL: No acute fracture. SINUSES: Unremarkable as visualized. No acute sinusitis. MASTOID AIR CELLS: Unremarkable as visualized. No mastoid effusion. VERTEBRAE: See below. DISCS/SPINAL CANAL/NEURAL FORAMINA: Advanced degenerative changes within the cervical spine with disc space narrowing and marginal osteophytes greatest from C4-5 through C6-7. Diffuse facet RADIOLOGY SERVICES REPORT (Continued) Name: BURTON ARAMBULA CC: BURTON ARAMBULA / Report: [id number] Radiology Services Report Page 2 of 2 arthritis asymmetric to the left. Partial bony fusion of posterior elements of C2-3 asymmetric to the left. Diffuse osteopenia. Arthritic changes of the uncovertebral joints. At least mild-moderate multilevel canal and foraminal narrowing due to hypertrophic changes. Minimal rotational subluxation of C1 on C2 favored to be positional. SOFT TISSUES: Unremarkable. VASCULATURE: Scattered vascular calcifications. Right carotid endovascular stent. LUNG APICES: Scarring or fibrosis in the lung apices. IMPRESSION: Chronic appearing findings in the head and cervical spine. Consider MRI if symptoms persist. . ED course: CT chest , abdomen , pelvis - FINDINGS: ARTIFACTS: Some images are degraded by patient motion artifact. BRAIN: Cortical volume loss. Areas of diminished attenuation in the bilateral white matter are nonspecific but most consistent with chronic microvascular ischemic changes. Redemonstration of minimal encephalomalacia near the right precentral gyrus. No hemorrhage. VENTRICLES: Unremarkable. No ventriculomegaly. SKULL: No acute fracture. SINUSES: Unremarkable as visualized. No acute sinusitis. MASTOID AIR CELLS: Unremarkable as visualized. No mastoid effusion. VERTEBRAE: See below. DISCS/SPINAL CANAL/NEURAL FORAMINA: Advanced degenerative changes within the cervical spine with disc space narrowing and marginal osteophytes greatest from C4-5 through C6-7. Diffuse facet RADIOLOGY SERVICES REPORT arthritis asymmetric to the left. Partial bony fusion of posterior elements of C2-3 asymmetric to the left. Diffuse osteopenia. Arthritic changes of the uncovertebral joints. At least mild-moderate multilevel canal and foraminal narrowing due to hypertrophic changes. Minimal rotational subluxation of C1 on C2 favored to be positional. SOFT TISSUES: Unremarkable. VASCULATURE: Scattered vascular calcifications. Right carotid endovascular stent. LUNG APICES: Scarring or fibrosis in the lung apices. IMPRESSION: Chronic appearing findings in the head and cervical spine. Consider MRI if symptoms persist. . ED course: CT C/A/P -- IMPRESSION: 1. Allowing for lack of intravenous contrast, no acute traumatic abnormality of the chest, abdomen, or pelvis. 2. 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 3. Diffuse thickening of the ascending through transverse colon. This could be seen with inflammatory or infectious colitis or may be seen with hypoproteinemia, or portal hypertensive colopathy/enteropathy, as is favored in this case. 4. Heterogenous appearance of the bone marrow diffusely, which appears slightly progressed from reference exam. Nonspecific and may be seen with osteopenia or a number of systemic metabolic processes. 5. Additional nonacute findings as above. Electronically signed by: Silverio Garcia MD 07/09/2025 06:35 AM. 06:48 Differential diagnosis: abrasion, closed head injury, contusion, fracture, laceration, sp4 multiple trauma, sprain, strain, Acute upper GI bleed variceal. 06:49 Data reviewed: vital signs, nurses notes, EMS record, old medical records, lab test sp4 result(s), cardiac enzymes, CBC, drug level(s), electrolytes, hepatic panel, EKG, radiologic studies, CT scan. 06:51 Medical Screening Exam initiated sp4 06:52 Consideration of Admission/Observation Escalation of care including sp4 admission/observation considered. Management of patient was discussed with the following: Lens Gauger: [facility] accepting checker loader. ED course: At this time hemodynamically stable, will attempt to transfer to [facility] for further level of care and for GI consultation.. 07:04 Transition of care: After a detail discussion of the patient's case, care is sp4 transferred to Shi Majano MD. 07:28 ED course: Patient signed out to me by nighttime physician. Patient is a 75-year-old sp3 male with history of alcoholism, diabetes, liver cirrhosis, hepatic encephalopathy who presents with hematemesis, epigastric pain and altered mental status. Patient also had a fall with facial injury. Workup thus far demonstrates hemoglobin of 9.[address] demonstrates variceal pathology both distal esophagus as well as gastric. Full CT scan of the head, C-spine, facial bones, chest abdomen and pelvis demonstrate no significant traumatic findings. Ammonia is also elevated. Currently patient is on Protonix and octreotide drips and transfusion has not been initiated. Patient has not had any hematemesis on day shift. He is currently stable and resting with heart rate between 110 and 120 and blood pressure 136/53. Patient does seem anxious however we will hold on any benzodiazepine for now. Transfer has been initiated have had discussion with family on need for possible blood transfusion.. 07:34 ED course: Discussed with physician team at [facility] who have accepted the sp3 patient and will take over care.. 07/09 05:16 Order name: Basic Metabolic Panel; Complete Time: 06:39 sp4 07/09 05:16 Order name: CBC with Diff; Complete Time: 08:47 sp4 07/09 05:16 Order name: LFT's; Complete Time: 06:39 sp4 07/09 05:16 Order name: Magnesium; Complete Time: 06:39 sp4 07/09 05:16 Order name: NT PRO-BNP; Complete Time: 06:39 sp4 07/09 05:16 Order name: PT-INR; Complete Time: 06:09 sp4 07/09 05:16 Order name: Troponin HS; Complete Time: 06:39 sp4 07/09 05:17 Order name: AMMONIA; Complete Time: 06:39 sp4 07/09 05:17 Order name: Lactate w/ 2H reflex if indic.; Complete Time: 06:39 sp4 07/09 05:17 Order name: UA Rfx Sha Cult if indicated; Complete Time: 06:52 sp4 07/09 05:17 Order name: Alcohol Level; Complete Time: 06:09 sp4 07/09 06:10 Order name: Type And Screen; Complete Time: 08:53 sp4 07/09 06:18 Order name: Ghost Lactate-NO COLLECT Timer; Complete Time: 08:47 EDMS 07/09 06:19 Order name: CBC Smear Scan; Complete Time: 08:47 EDMS 07/09 05:16 Order name: CT Head C Spine; Complete Time: 06:39 sp4 07/09 05:16 Order name: CT Chest Abdomen Pelvis W/O Contrast; Complete Time: 06:44 sp4 07/09 05:45 Order name: CT Facial Bones W/O Con; Complete Time: 06:39 sp4 07/09 05:16 Order name: Cardiac monitoring; Complete Time: 05:34 sp4 07/09 05:16 Order name: EKG - Nurse/Tech; Complete Time: 06:14 sp4 07/09 05:16 Order name: IV Saline Lock; Complete Time: 05:34 sp4 07/09 05:16 Order name: Labs collected and sent; Complete Time: 05:34 sp4 07/09 05:16 Order name: O2 Per Protocol; Complete Time: 05:34 sp4 07/09 05:16 Order name: O2 Sat Monitoring; Complete Time: 05:34 sp4 07/09 05:17 Order name: Castañeda; Complete Time: 06:13 sp4 07/09 07:24 Order name: Labs - recollect needed: TS; Complete Time: 07:49 bc6 EC:09 Rate is 105 beats/min. Rhythm is regular, Sinus tachycardia. QRS [place] is Normal. AL sp4 interval is normal. QRS interval is normal. QT interval is normal. No Q waves. T waves are Normal. No ST changes noted. Clinical impression: No evidence of ischemia. Interpreted by me. Reviewed by me. Administered Medications: 06:14 Drug: tranexamic acid IV 1000 mg IV at bolus once; IV once over 20 minutes Route: IV; cp4 Rate: bolus; Site: left forearm; 06:25 Follow up: Response: No adverse reaction; IV Status: Completed infusion cp4 06:14 Drug: Ondansetron IVP 4 mg IVP once; over 2 minutes Route: IVP; Site: left forearm; cp4 06:55 Follow up: Response: No adverse reaction; Nausea is decreased cp4 06:26 Drug: Albumin IVPB 25 grams 100 ml IVPB once; (Note: Albumin 25% concentration) Volume: cp4 100 ml; Route: IVPB; Site: right hand; 06:54 Follow up: IV Status: Completed infusion cp4 06:53 Drug: Pantoprazole IVP 80 mg IVP once Route: IVP; Site: right hand; cp4 06:56 Follow up: Response: No adverse reaction cp4 06:53 Drug: Pantoprazole IV 8 mg/hr IV at 25 ml/hr continuous; (Standard dilution is 80 mg in cp4 250 mL NS) Route: IV; Rate: 25 ml/hr; Site: right hand; 09:00 Follow up: IV Status: Infusion continued upon transfer bp 06:53 Drug: Rocephin - Rocephin (cefTRIAXone) IVPB 1 grams IVPB once over 30 mins; (mix in 50 cp4 mL NS) Route: IVPB; Infused Over: 30 mins; Site: left forearm; 06:56 Follow up: IV Status: Completed infusion cp4 06:56 Drug: Ativan IVP 1 mg IVP once Route: IVP; Site: left forearm; cp4 08:59 Follow up: Response: No adverse reaction bp 07:15 Drug: Famotidine IVP 20 mg IVP once; dilute with 10 mL 0.9% NaCl; give over 2 minutes bp Route: IVP; Site: left forearm; 09:00 Follow up: Response: No adverse reaction bp 07:57 Drug: Octreotide Infusion (50 mcg/hr) - (Octreotide IV 500 mcg, NS 0.9% IV 500 ml) IV bp at 50 ml/hr continuous Route: IV; Rate: 50 ml/hr; Site: left forearm; 09:00 Follow up: IV Status: Infusion continued upon transfer bp Disposition: 07/10 03:13 Chart complete. sp4 Disposition Summary: 07/09/25 06:51 Transfer Ordered Notes: Transfer Location: [facility] sp4 Reason: Higher level of care sp4 Condition: Serious sp4 Problem: new sp4 Symptoms: have improved sp4 Accepting Physician: [facility]'s attending MD(07/09/25 09:02) bp Diagnosis - GI Bleed/ Gastrointestinal hemorrhage, unspecified sp4 - Acute upper GI bleed, acute hematemesis secondary to variceal bleed, liver sp4 cirrhosis, syncope and collapse, acute hypotensive episode - Hepatic encephalopathy, acute hypoactive delirium sp4 Forms: - Medication Reconciliation Form sp4 - SBAR form sp4 Critical care time excluding procedures: 07/09 05:58 Critical care time: Bedside Care: 36 minutes, Consultation: 12 minutes, Family sp4 Intervention: 12 minutes. Total time: 60 minutes 07:30 Critical care time: Bedside Care: 10 minutes, Consultation: 10 minutes, Family sp3 Intervention: 10 minutes. Total time: 30 minutes Signatures: Dispatcher [employer] EDAxel Alicea, MADI RN bp Shi Majano MD MD sp3 Candy Hernandez Sergey, MD MD sp4 Katja Celestin cp4 Cabrera, Rosales, PRESIDENT PRACTICING UROLOGIST-C PRESIDENT PRACTICING UROLOGIST-Cdr5 Corrections: (The following items were deleted from the chart) 05:17 05:17 BASIC METABOLIC PANEL+C.LAB.BRZ ordered. EDMS EDMS 05:17 05:17 CBC+H.LAB.BRZ ordered. EDMS EDMS 05:17 05:17 HEPATIC FUNCTION+C.LAB.BRZ ordered. EDMS EDMS 05:17 05:17 MAGNESIUM+C.LAB.BRZ ordered. EDMS EDMS 05:17 05:17 PROBNP+C.LAB.BRZ ordered. EDMS EDMS 05:17 05:17 PROTIME (+INR)+COAG.LAB.BRZ ordered. EDMS EDMS 05:17 05:17 Troponin High Sensitivity+C.LAB.BRZ ordered. EDMS EDMS 05:17 05:17 Head C Spine MPR Wo Con+CT.RAD.BRZ ordered. EDMS EDMS 05:17 05:17 Chest Abdomen Pelvis Wo Con+CT.RAD.BRZ ordered. EDMS EDMS 05:17 05:17 AMMONIA+C.LAB.BRZ ordered. EDMS EDMS 05:17 05:17 LACTATE+C.LAB.BRZ ordered. EDMS EDMS 05:18 05:18 ETHANOL+C.LAB.BRZ ordered. EDMS EDMS 06:10 06:10 TYPE AND SCREEN+BB.LAB.BRZ ordered. EDMS EDMS 06:53 06:51 [facility]'s attending MD [email or web address] sp4 09:02 06:53 [facility]' attending sp4 bp
--- NOTE | 2025-07-09 06:52 | ER ---
Nurse's Notes [facility] Name: Burton Mcduffie Age: 75 yrs Sex: Male : 1950 Arrival Date: 07/09/2025 Time: 05:08 Bed 4 Private MD: Diagnosis: GI Bleed/ Gastrointestinal hemorrhage, unspecified;Acute upper GI bleed, acute hematemesis secondary to variceal bleed, liver cirrhosis, syncope and collapse, acute hypotensive episode;Hepatic encephalopathy, acute hypoactive delirium Presentation: 07/09 05:24 Chief complaint: EMS states: patient started vomiting blood at 0230 and had a fall at cp4 0430. Patient became hypotensive with EMS enrout. Coronavirus screen: Client denies travel out of the [place] in the last 14 days. At this time, the client does not indicate any symptoms associated with coronavirus-19. Ebola Screen: Patient negative for fever greater than or equal to 101.5 degrees Fahrenheit, and additional compatible Ebola Virus Disease symptoms Patient denies exposure to infectious person. Patient denies travel to an Ebola-affected area in the 21 days before illness onset. No symptoms or risks identified at this time. Initial Sepsis Screen: Does the patient meet any 2 criteria? HR > 90 bpm. No. Patient's initial sepsis screen is negative. Does the patient have a suspected source of infection? No. Patient's initial sepsis screen is negative. Risk Assessment: Do you want to hurt yourself or someone else? Patient reports no desire to harm self or others. Onset of symptoms was July 09, 2025 at 02:30. 05:24 Method Of Arrival: EMS: [facility] cp4 05:24 Acuity: MEAGAN 3 cp4 Triage Assessment: 05:27 General: Appears in no apparent distress. uncomfortable, Behavior is calm, cooperative, cp4 appropriate for age. Pain: Denies pain. EENT: No signs and/or symptoms were reported regarding the EENT system. Neuro: Level of Consciousness is awake, alert, obeys commands, Oriented to person, place, time, situation. Cardiovascular: Patient's skin is warm and dry. Respiratory: Airway is patent Respiratory effort is even, unlabored. GI: Abdomen is round non-distended, large, protruding hernia on left side of abdomen Bowel sounds present X 4 quads. Abd is soft and non tender X 4 quads. Reports nausea, vomiting. : No signs and/or symptoms were reported regarding the genitourinary system. Derm: No signs and/or symptoms reported regarding the dermatologic system. Musculoskeletal: No signs and/or symptoms reported regarding the musculoskeletal system. Historical: - Allergies: 05:27 Amitriptyline; cp4 05:27 Tape; cp4 05:27 Vancomycin; cp4 - Home Meds: 05:52 allopurinol 300 mg Oral tablet 1 tab daily [Active]; amiloride 5 mg oral tablet 2 tabs cp4 daily [Active]; aspirin 81 mg Oral tablet,chewable 1 tab daily [Active]; furosemide 40 mg Oral tablet 1 tab twice a day [Active]; insulin glargine 100 unit/mL (3 mL) Sub-Q Insulin Pen 12 units every morning [Active]; Humalog U-100 Insulin 100 unit/mL Sub-Q cartridge 12 units before meals [Active]; lactulose 20 gram Oral Packet 3 times per day [Active]; levetiracetam 1,000 mg oral Tablet, Extended Release 24 hr 1 tab twice a day [Active]; levothyroxine 75 mcg tablet 1 tab daily [Active]; magnesium oxide 500 mg Oral capsule 1 cap 2 times per day [Active]; metoprolol tartrate 25 mg Oral tablet 0.5 tab [Active]; rifaximin 550 mg oral tablet 1 tab 2 times per day [Active]; ursodiol 300 mg Oral capsule 1 cap 2 times per day [Active]; - PMHx: 05:27 Arthritis; BPH; Diabetes - IDDM; GERD; Hyperlipidemia; Hypertension; Hypothyroidism; cp4 Kidney stones; Leukemia; neuropathy; UTI; Cirrhosis of liver; - Immunization history:: Adult Immunizations up to date. - Infectious Disease History:: Denies. - Social history:: Smoking status: Patient denies any tobacco usage or history of. - Family history:: not pertinent. Screenin:32 [facility] ED Fall Risk Assessment (Adult) History of falling in the last 3 months, cp4 including since admission Yes- single mechanical fall (1 pt) Confusion or Disorientation No (0 pts) Intoxicated or Sedated No (0 pts) Impaired Gait No (0 pts) Mobility Assist Device Used No (0 pt) Altered Elimination No (0 pt) Score/Fall Risk Level 0 - 2 = Low Risk Oriented to surroundings, Maintained a safe environment, Assessed \T\ reinforced patient's understanding of fall precautions, Hourly rounding (assess needs \T\ fall precautionary measures) done. Abuse screen: Denies threats or abuse. Denies injuries from another. Nutritional screening: No deficits noted. Tuberculosis screening: No symptoms or risk factors identified. Never had TB. Assessment: 05:32 Reassessment: No changes from previously documented assessment. cp4 07:05 Reassessment: Patient appears in no apparent distress at this time. Patient and/or db family updated on plan of care and expected duration. Pain level reassessed. Patient is alert, oriented x 3, equal unlabored respirations, skin warm/dry/pink. General: Appears in no apparent distress. uncomfortable. Neuro: Level of Consciousness is awake, alert, obeys commands, Oriented to person, place, time, situation. Respiratory: Airway is patent Respiratory effort is even, unlabored, Respiratory pattern is regular, symmetrical. 07:45 Reassessment: REPORT GIVEN TO MADI BOWLES AT [facility]. db 08:58 Reassessment: PT MORENO WITH EMS. bp Vital Signs: 05:24 BP 118 / 62; Pulse 104; Resp 18; Temp 98.2; Pulse Ox 100% ; Weight 81.65 kg; Height 5 cp4 ft. 9 in. ; Pain 0/10; 07:00 BP 120 / 61; Pulse 118; Resp 18; Pulse Ox 100% ; db 07:30 BP 134 / 65; Pulse 119; Resp 17; Pulse Ox 100% ; db 08:57 BP 115 / 64; Pulse 112; Resp 14; Pulse Ox 97% ; bp 05:24 Body Mass Index 26.58 (81.65 kg, 175.26 cm) cp4 05:24 Pain Scale: Adult cp4 [place] Coma Score: 05:52 Eye Response: spontaneous(4). Verbal Response: confused(4). Motor Response: obeys sp4 commands(6). Total: 14. ED Course: 05:10 Patient arrived in ED. gm2 05:15 Sen Leon MD is Attending Physician. sp4 05:20 Katja Celestin is Primary Nurse. cp4 05:27 Triage completed. cp4 05:27 Arm band placed on right wrist. Patient placed in an exam room, on a stretcher. cp4 05:32 Call light in reach. Side rails up X2. cp4 05:32 No provider procedures requiring assistance completed. Maintain EMS IV. Dressing cp4 intact. Good blood return noted. Site clean \T\ dry. Gauge \T\ site: 22 right thumb. Flushed with 10 mL NS. 05:35 Inserted saline lock: 20 gauge in left forearm, using aseptic technique. Blood cp4 collected. 06:09 CT Head C Spine In Process Unspecified. EDMS 06:10 CT Chest Abdomen Pelvis W/O Contrast In Process Unspecified. EDMS 06:10 CT Facial Bones W/O Con In Process Unspecified. EDMS 06:14 Castañeda cath inserted, using sterile technique, 16 Fr., by ny, balloon inflated, to cp4 gravity drainage, urine specimen collected. 07:04 Attending Physician role handed off by Sen Leon MD sp3 07:04 Shi Majano MD is Attending Physician. sp3 07:06 transfer initiated with K[place] at the [facility]. bc6 07:27 acceptance received with Katia for DR Lenora French at [facility]. bc6 07:49 Lab(s) recollected, by scientific laboratory supervisor, sent to lab. ts3 08:00 Tamia with [facility] accepted transfer. bc6 08:59 Patient transferred, IV remains in place. bp Administered Medications: 06:14 Drug: tranexamic acid IV 1000 mg IV at bolus once; IV once over 20 minutes Route: IV; cp4 Rate: bolus; Site: left forearm; 06:25 Follow up: Response: No adverse reaction; IV Status: Completed infusion cp4 06:14 Drug: Ondansetron IVP 4 mg IVP once; over 2 minutes Route: IVP; Site: left forearm; cp4 06:55 Follow up: Response: No adverse reaction; Nausea is decreased cp4 06:26 Drug: Albumin IVPB 25 grams 100 ml IVPB once; (Note: Albumin 25% concentration) Volume: cp4 100 ml; Route: IVPB; Site: right hand; 06:54 Follow up: IV Status: Completed infusion cp4 06:53 Drug: Pantoprazole IVP 80 mg IVP once Route: IVP; Site: right hand; cp4 06:56 Follow up: Response: No adverse reaction cp4 06:53 Drug: Pantoprazole IV 8 mg/hr IV at 25 ml/hr continuous; (Standard dilution is 80 mg in cp4 250 mL NS) Route: IV; Rate: 25 ml/hr; Site: right hand; 09:00 Follow up: IV Status: Infusion continued upon transfer bp 06:53 Drug: Rocephin - Rocephin (cefTRIAXone) IVPB 1 grams IVPB once over 30 mins; (mix in 50 cp4 mL NS) Route: IVPB; Infused Over: 30 mins; Site: left forearm; 06:56 Follow up: IV Status: Completed infusion cp4 06:56 Drug: Ativan IVP 1 mg IVP once Route: IVP; Site: left forearm; cp4 08:59 Follow up: Response: No adverse reaction bp 07:15 Drug: Famotidine IVP 20 mg IVP once; dilute with 10 mL 0.9% NaCl; give over 2 minutes bp Route: IVP; Site: left forearm; 09:00 Follow up: Response: No adverse reaction bp 07:57 Drug: Octreotide Infusion (50 mcg/hr) - (Octreotide IV 500 mcg, NS 0.9% IV 500 ml) IV bp at 50 ml/hr continuous Route: IV; Rate: 50 ml/hr; Site: left forearm; 09:00 Follow up: IV Status: Infusion continued upon transfer bp Medication: 05:32 VIS not applicable for this client. cp4 Outcome: 06:51 ER care complete, transfer ordered by sp4 08:58 Transferred by ground EMS bp 08:58 Condition: stable 08:58 Instructed on the need for transfer, 09:02 Patient left the ED. bp Signatures: Dispatcher [employer] EDMS Axel Rick, RN RN bp Shi Majano MD MD sp3 Agustina King RN RN db Candy Hernandez bc6 Sen Leon MD MD sp4 Katja Celestin 4 Alejandra Walker 2 Estrella Cook 3 Corrections: (The following items were deleted from the chart) 08:24 07:06 transfer initiated with anne-marie at the [facility]6 bc6
[2025-07-09] MEDS ORDERED: FAMOTIDINE 20 MG/2 ML VIAL IV ONE (07:10)
[2025-07-09] MEDS ORDERED: OCTREOTIDE 500 MCG in NA CHLORIDE 0.9% 500 ML IV SCH (08:00)
[2025-07-09 08:30] LABS: White Blood Cell Scan OK (OK)
[2025-07-09 08:31] LABS: Anisocytosis 1+; Blood Morphology Comment NOTED (NOT SEEN); Hypochromasia 1+; Microcytosis 1+
[2025-07-09 08:32] LABS: Poikilocytosis SLIGHT; Polychromasia SLIGHT
[2025-07-09 09:06] VITALS: TEMP 98.2
[2025-07-09 09:09] VITALS: BP 115/64; O2SAT 97
== END 2025-07-09 09:02 | disposition short-term general hospital (02) ==
LOC: ER 05:08
DX: I85.01 Esophageal varices with bleeding (principal); R55 Syncope and collapse; I95.9 Hypotension, unspecified; K76.82 Hepatic encephalopathy; F05 Delirium due to known physiological condition; K74.60 Unspecified cirrhosis of liver; S01.21XA Laceration without foreign body of nose, initial encounter; W18.30XA Fall on same level, unspecified, initial encounter; I10 Essential (primary) hypertension; E11.9 Type 2 diabetes mellitus without complications; Z79.82 Long term (current) use of aspirin; Z79.4 Long term (current) use of insulin
CPT/HCPCS: 93005; 85025; 81001; 80048; 36415; 82140; 86900; 83735; 86850; 85610; 86901; 80076; 83605; 84484; 83880; 70450; 71250; 72125; 70486; 76377; 74176; 51702; 99285; 82077; J2354; J2470; J2405; P9047; J7050; J7040; J0696